=== PATIENT | female | born 1935 | race Caucasian/White ===

== ENCOUNTER 2018-07-08 20:42 | Outpatient (REF) | payer MEDICARE, BC, SELFPAY | END 2018-07-08 20:43 | LOC: NCHCN 20:42 | PROVIDERS: PCP Family Medicine; Visit Provider Family Medicine | DX: R35.0 Frequency of micturition (principal) | CPT/HCPCS: 87077; 87086 ==

== ENCOUNTER → 2018-08-02 14:59 | Outpatient (BNVA) | payer MEDICARE, BC, SELFPAY | PROVIDERS: PCP Family Medicine; Visit Provider Surgery | DX: S31.109A Unspecified open wound of abdominal wall, unspecified quadrant without penetration into peritoneal cavity, initial encounter (principal); L08.9 Local infection of the skin and subcutaneous tissue, unspecified | CPT/HCPCS: 99213 ==

== ENCOUNTER → 2018-08-10 07:33 | Outpatient (BNVA) | payer MEDICARE, BC, SELFPAY | PROVIDERS: PCP Family Medicine; Referring Provider Family Medicine; Visit Provider Surgery | DX: R69 Illness, unspecified (principal) ==

== ENCOUNTER 2018-08-10 08:53 | Day surgery (SDC) | payer MEDICARE, BC, SELFPAY ==
[2018-08-10 09:14] VITALS: BP 127/63; PULSE 70; RESP 16; TEMP 36.4; O2SAT 94
[2018-08-10] MEDS: Lactated Ringers 1,000 ML 30 ML IV (09:40)
--- NOTE | 2018-08-10 13:09 | SOFT_PTH ---
PATIENT: Tanja Carpio LOC: [facility] U#:[id number] AGE/SX: 82/F ROOM: RE08/10/[address]: Julian Elizalde DO : 1935 BED: DIS: 08/10/2018 SPEC #: [id number] RECD: 08/11/18 12:13 STATUS: RAMIREZ REQ #: [id number] MINDA: 08/10/18 13:[address]: Julian Elizalde DEPT: Surgical Specimen RECD BY: Werner Ruiz ENTERED: 08/11/18 12:16 SP TYPE: SOFT OTHR DR: Maribell Choi Tissues: 1 - SOFT TISSUE MISC (INC. LIPOMA) Procedures: GROSS AND MICRO LEVEL 3 SPECIAL STAIN 1 Comments: [id number]
[2018-08-10] MEDS: Bupivacaine 0.5% Pres-Free 30 ML VIAL (13:11)
--- NOTE | 2018-08-10 13:53 | W.PM.DSUDISC ---
Discharge Plan Disposition Patient Disposition: HOME Condition: Good Discharge Details Reason For Visit: Chronic non healing abdominal wound Attending Provider: Julian Elizalde Primary Care Provider: Maribell Choi Home Meds and New Rx's Prescriptions: New acetaminophen [Tylenol] 325 mg Tablet 650 mg PO Q4H PRN PRNQty: 30 RF: 0 Continue sennosides [senna] 8.6 mg tablet 8.6 mg PO BID PRNRF: 0 prednisone 10 MG tablet 10 mg PO DAILY RF: 0 melatonin 3 MG tablet 6 mg PO HS RF: 0 gabapentin 300 MG capsule 600 mg PO BID RF: 0 folic acid 0.8 MG capsule 0.8 mg PO DAILY RF: 0 apixaban [Eliquis] 2.5 MG tablet 2.5 mg PO BID RF: 0 ergocalciferol (vitamin D2) [Vitamin D2] 50,000 UNITS capsule 50,000 units PO .QOWEEK RF: 0 cyanocobalamin (vitamin B-12) 1,000 MCG/ML solution 1 ea IM .QMONTH RF: 0 bisacodyl 10 MG suppository 1 ea LA PRN PRNRF: 0 docusate sodium [Colace] 100 MG capsule 100 mg PO DAILY PRN (Reason: Constipation) Qty: 14 RF: 0 methadone 5 mg Tablet 2.5 mg PO HS RF: 0 hydromorphone [Dilaudid] 2 MG tablet 2 - 4 mg PO Q3H PRN MDD 3mg Q3H PRNRF: 0 ferrous sulfate 325 MG tablet 325 mg PO DAILY RF: 0 methadone [Dolophine] 5 MG tablet 5 mg PO DAILY RF: 0 Discharge Instructions Instructions: Care For Your Absorbable Stitches (DC) Stand Alone Forms: DSU Post op Instructions, Joyce Hoffmann (DSU) Referrals: Julian Elizalde DO [ [facility] STAFF PHYSICIAN] - 08/23/18 2:00 am (Follow up after excision of chronic wound) Print Language: Paraguayan Activity:: Activity as Tolerated Remove Dressings/Wound Care:: 48 hours Shower/Bathe:: 48 hours Diet:: resume regular Discharge Orders Discharge Orders: Discharge Order (Routine); Ordered 08/10/18 Ordered By: Julian Elizalde Discharge Data Discharge Comment: Resume jarvis alfredo DS: Diagnosis Discharge Diagnosis (1) Chronic abdominal wound infection: Status: Acute Asessment and Plan: 82-year-old woman who presents with a chronic abdominal wound infection. This is from where she had her gastrostomy tube removed over a year ago. The wound tract never closed, and it occasionally has gastric drainage which keeps the wound inflamed. She has been seen by a supply chain specialist who has attempted multiple times to scar the tract closed using silver nitrate. This is been attempted 6 times in his been unsuccessful all 6 times. She would like options for more permanent repair or healing. Location: Left upper quadrant of the abdomen Recommended excision of chronic wound with exploration of gastrostomy tube tract, and closure if the tract is still open into the stomach. I discussed the risks of the procedure with Mrs. Merino. She is at increased risk due to her steroid use. She understood this and wished to proceed.
--- NOTE | 2018-08-10 14:00 | W.PM.OP ---
Date of service: 08/10/18 Time of Service: 14:01 Operative Note DATE OF PROCEDURE: 08/10/18 PRE-OP DIAGNOSIS: Chronic abdominal wound POST-OP DIAGNOSIS: same PROCEDURE: Excision of chronic abdominal wound lesion SURGEON: Julian Elizalde BATTERY STACKER: Maricel White ANESTHESIA: MAC (Subsystems Engineer: Kathy Schultz, HERIBERTO ASA 3, Mallampati class: II) and local (0.5% lidocaine, 1.3 % exparel mixed with 0.5% marcaine plain) ESTIMATED BLOOD LOSS: 5 PATHOLOGY: other (Chronic wound tract ) COMPLICATIONS: None Patient was transported to: same day Patient's condition: stable Indications: This is a pleasant 82-year-old woman who had originally had a G tube placed for dysphasia secondary to myasthenia gravis. Her condition improved and she had the G-tube removed almost a year ago. Since its removal the tract has failed to close leaving a small area of indurated and irritated skin around the opening for the G-tube. She is on chronic steroids which probably contributed to the failure of closure of the wound. Recommended excision of chronic wound with exploration of gastrostomy tube tract, and closure if the tract is still open into the stomach. I discussed the risks of the procedure with Mrs. Merino. She is at increased risk due to her steroid use. She understood this and wished to proceed. Findings: Chronic wound excised including G-tube tract. Wound measured 9 x 2 x 2 cm. Fascia closed at g tube site on abdominal wall. Procedure Description: The patient was brought to the preanesthesia staging area, her identification was confirmed and consent signed. She was then brought to the operating room and positioned supine. Monitoring for telemetry, end-tidal CO2, O2 saturation, and blood pressure were applied. An appropriate timeout was taken reviewing the patient's identification, allergies, antibiotics, procedure, history, and fire hazard risk. Sedation was then titrated for effect by the GLACING MACHINE TENDER. Once adequate sedation was reached; the abdomen was prepped with ChloraPrep, and block draped in the standard sterile fashion. I began by making an elliptical marking around the chronic wound bed with the gastrostomy tube tract in the middle of this. Local 0.5% lidocaine was then infiltrated around this. I then incised through the skin of the ellipse using a 15 blade scalpel, carrying this down to the subcutaneous tissue. I then used cautery to divide the subcutaneous tissue down to the anterior rectus fascia. Cautery was then used to sharply separate the subcutaneous tissue from the rectus fascia, which effectively remove the chronic wound tissue along with gastrostomy tube tract. The wound defect measured 9 cm x 2 cm x 2 cm. Inspecting the fascia, I could see a fairly round defect I cannot see any leakage from this defect. I oversewed the defect using interrupted sutures of 0 Vicryl suture, 3 in total. I then obtained hemostasis using cautery. The wound was irrigated with 500 cc of sterile saline. The wound was then closed in layers. The subcutaneous layer was approximated using 3-0 Vicryl in inverted's simple sutures. The skin was closed using 4-0 Vicryl in a running subcuticular fashion. Prior to closure of the wound 1.3% Exparel mixed with 0.5% Marcaine plain was infiltrated into the fascia circumferentially at the base of the wound. There were no complications during the case. The patient tolerated procedure well. She was brought to the day surgery recovery area in good condition. All counts were reported as correct x2.
--- NOTE | 2018-08-10 14:06 | ROE_ITS ---
Date of service: 08/10/18 Time of Service: 14:01 Operative Note DATE OF PROCEDURE: 08/10/18 PRE-OP DIAGNOSIS: Chronic abdominal wound POST-OP DIAGNOSIS: same PROCEDURE: Excision of chronic abdominal wound lesion SURGEON: Julian Eliazlde GRAIN BROKER: Maricel hWite ANESTHESIA: MAC (Gravity Prospecting Supervisor: Kathy Schultz, HERIBERTO ASA 3, Mallampati class: II) and local (0.5% lidocaine, 1.3 % exparel mixed with 0.5% marcaine plain) ESTIMATED BLOOD LOSS: 5 PATHOLOGY: other (Chronic wound tract ) COMPLICATIONS: None Patient was transported to: same day Patient's condition: stable Indications: This is a pleasant 82-year-old woman who had originally had a G tube placed for dysphasia secondary to myasthenia gravis. Her condition improved and she had the G-tube removed almost a year ago. Since its removal the tract has failed to close leaving a small area of indurated and irritated skin around the opening for the G-tube. She is on chronic steroids which probably contributed to the failure of closure of the wound. Recommended excision of chronic wound with exploration of gastrostomy tube tract, and closure if the tract is still open into the stomach. I discussed the risks of the procedure with Mrs. Merino. She is at increased risk due to her steroid use. She understood this and wished to proceed. Findings: Chronic wound excised including G-tube tract. Wound measured 9 x 2 x 2 cm. Fascia closed at g tube site on abdominal wall. Procedure Description: The patient was brought to the preanesthesia staging area, her identification was confirmed and consent signed. She was then brought to the operating room and positioned supine. Monitoring for telemetry, end-tidal CO2, O2 saturation, and blood pressure were applied. An appropriate timeout was taken reviewing the patient's identification, allergies, antibiotics, procedure, history, and fire hazard risk. Sedation was then titrated for effect by the CLINICAL ASSISTANT. Once adequate sedation was reached; the abdomen was prepped with ChloraPrep, and block draped in the standard sterile fashion. I began by making an elliptical marking around the chronic wound bed with the gastrostomy tube tract in the middle of this. Local 0.5% lidocaine was then infiltrated around this. I then incised through the skin of the ellipse using a 15 blade scalpel, carrying this down to the subcutaneous tissue. I then used cautery to divide the subcutaneous tissue down to the anterior rectus fascia. Cautery was then used to sharply separate the subcutaneous tissue from the rectus fascia, which effectively remove the chronic wound tissue along with gastrostomy tube tract. The wound defect measured 9 cm x 2 cm x 2 cm. Inspecting the fascia, I could see a fairly round defect I cannot see any leakage from this defect. I oversewed the defect using interrupted sutures of 0 Vicryl suture, 3 in total. I then obtained hemostasis using cautery. The wound was irrigated with 500 cc of sterile saline. The wound was then closed in layers. The subcutaneous layer was approximated using 3-0 Vicryl in inverted's simple sutures. The skin was closed using 4-0 Vicryl in a running subcuticular fashion. Prior to closure of the wound 1.3% Exparel mixed with 0.5% Marcaine plain was infiltrated into the fascia circumferentially at the base of the wound. There were no complications during the case. The patient tolerated procedure well. She was brought to the day surgery recovery area in good condition. All counts were reported as correct x2.
[2018-08-10] MEDS: Acetaminophen 325 MG TAB 650 MG PO (14:09)
[2018-08-10 14:11] VITALS: BP 129/69; PULSE 65; RESP 16; TEMP 35.9; O2SAT 95
== END 2018-08-10 14:55 | disposition home or self-care (01) ==
PROVIDERS: PCP Family Medicine; Visit Provider Surgery
PROC: (CPT 11406; principal; 2018-08-10 10:30)
DX: T81.89XA Other complications of procedures, not elsewhere classified, initial encounter (principal); L85.9 Epidermal thickening, unspecified; B37.9 Candidiasis, unspecified; Z79.52 Long term (current) use of systemic steroids; L98.498 Non-pressure chronic ulcer of skin of other sites with other specified severity
CPT/HCPCS: 11406; 12034; 15002; 88305; 88304; 88312; J1720

== ENCOUNTER 2018-08-13 10:10 | Emergency (ER) | payer MEDICARE, BC, SELFPAY ==
[2018-08-13] VITALS (8 sets, daily range): BP systolic 120–138; BP diastolic 47–80; PULSE 84–171; RESP 12–20; TEMP 36.8–37.3; O2SAT 92–100
[2018-08-13 10:45] LABS: Abs Immature Grans 0.02 k/cumm (0.0-0.09); Absolute Eosinophil Count 0.13 k/cumm (0.0-0.7); Absolute Lymphocyte Count 1.77 k/cumm (1.2-3.4); Absolute Monocyte Count 0.88 k/cumm (0.11-0.7); Basophils % 0.2; HCT 40.7 % (36.0-46.0); Immature Grans % 0.2; Lymphocytes % 13.3; Mean Corp. HGB Concentration 31.9 g/dL (32.0-36.0); Mean Corpuscular Volume 106.5 fL (80-95); Mean Platelet Volume 9.6 fL (8.0-11.0); Monocytes % 6.6; Neutrophils % 78.7; Platelet Count 186 x1000/uL (130-400); RBC 3.82 m/cumm (4.00-5.20); RBC Distribution Width 13.1 % (11.7-14.6); White Blood Cell Count 13.32 k/cumm (4.4-10.8)
[2018-08-13 10:58] LABS: Absolute Basophil Count 0.03 k/cumm (0.0-0.2); Absolute Neutrophil Count 10.48 k/cumm (1.2-6.7)
[2018-08-13 10:59] LABS: Diff Comment RBC Morph Reviewed; Macrocytosis 3+
--- NOTE | 2018-08-13 11:04 | DI.CT_ITS ---
SYMPTOMS/DIAGNOSIS: ABD PAIN, RECENT SURGERY CT SCAN OF THE ABDOMEN AND PELVIS: CT scan of the abdomen and pelvis was performed with oral contrast only. Dependent atelectatic changes are seen in the lung bases. Lack of IV contrast does limit evaluation of the abdominal organs. The unenhanced liver, spleen, pancreas, gallbladder, bile ducts and adrenal glands are unremarkable. The kidneys show no evidence of nephrolithiasis or obstructive uropathy. The urinary bladder is intact. The reproductive organs are unremarkable. There is atherosclerosis of the abdominal aorta without aneurysmal dilatation. No significant abdominal or pelvic adenopathy, ascites or pneumoperitoneum is present. The patient is status post gastrotomy tube removal and debridement. There is tract leading from the anterior inferior aspect of the stomach to the anterior abdominal wall. The tract contains oral contrast. The tract width is less than 2 mm in diameter. The tract measures approximately 1.7 cm in length to the anterior abdominal wall. No definite contrast is seen in the subcutaneous tissues. There is a large air collection in the subcutaneous tissues in the left upper quadrant overlying the gastrostomy site. This air collection measures 5.3 cm transverse x 2.2 cm AP x 3.3 cm craniocaudad. No contrast is seen within the collection to suggest definite communication. There does not appear to be a communication with the skin surface however. There is a large amount of air in the subcutaneous tissues overlying the anterior abdominal wall likely reflecting the patient's recent surgery. The remainder of the bowel is unremarkable. No evidence of bowel obstruction is seen. No evidence of an acute appendicitis is present. IMPRESSION: Compression deformities involving the superior endplates of L 4, L 3 and L 1. Compression deformity of the T 12 vertebral body is noted. Moderately severe degenerative changes are in the spine. IMPRESSION: 1. Status post take down of gastrotomy tube and debridement. 2. Persistent tract extending from the stomach to the anterior abdominal wall without definite communication with the subcutaneous tissues. A residual fistula can not be excluded. 3. Air in the subcutaneous tissues of the anterior abdominal wall consistent with recent surgery. This includes a large 5.3 cm fluid collection in the left upper quadrant in the area of the gastrostomy tube. No definite communication with the skin surface is seen with this air collection and a persistent fistulous tract can not be excluded. These findings were discussed with Dr. Tay Jara of the emergency department on the date of the examination.
[2018-08-13 11:06] LABS: ALT 17 U/L (12-78); AST 13 U/L (15-37); Albumin 3.4 g/dL (3.4-5.0); Alkaline Phosphatase 60 U/L (46-116); Anion Gap 5.5 mmol/L (3-11); BUN 23 mg/dL (7-18); Bilirubin, Direct 0.12 mg/dL (0.00-0.20); Bilirubin, Total 0.5 mg/dL (0.2-1.0); CO2 32.5 mmol/L (21.0-32.0); CREATININE 1.33 mg/dL (0.55-1.02); Calcium 9.5 mg/dL (8.5-10.1); Chloride 100 mmol/L (98-107); Estimated GFR 38.39 (mL/min/1.73m2); Glucose 96 mg/dL (70-100); Potassium 4.2 mmol/L (3.5-5.1); Sodium 138 mmol/L (136-145); TSH (W/Ref FT4) 0.97 uIU/mL (0.358-3.74); Total Protein 6.6 g/dL (6.4-8.2)
--- NOTE | 2018-08-13 11:06 | W.ED.GENAD ---
Discharge Plan Disposition Patient Disposition: HOME Discharge Details Chief Complaint: Abd Prob Clinical Impression: Altered mental status, Abdominal pain Reason For Visit: MANGO Primary Care Provider: Maribell Choi ED Provider: Tay Jara Home Meds and New Rx's Prescriptions: Continue sennosides [senna] 8.6 mg tablet 8.6 mg PO BID PRNRF: 0 prednisone 10 MG tablet 7.5 mg PO DAILY RF: 0 melatonin 3 MG tablet 6 mg PO HS RF: 0 gabapentin 300 MG capsule 600 mg PO BID RF: 0 folic acid 0.8 MG capsule 0.8 mg PO DAILY RF: 0 apixaban [Eliquis] 2.5 MG tablet 2.5 mg PO BID RF: 0 ergocalciferol (vitamin D2) [Vitamin D2] 50,000 UNITS capsule 50,000 units PO .QOWEEK RF: 0 cyanocobalamin (vitamin B-12) 1,000 MCG/ML solution 1 ea IM .QMONTH RF: 0 bisacodyl 10 MG suppository 1 ea SC PRN PRNRF: 0 docusate sodium [Colace] 100 MG capsule 100 mg PO DAILY PRN (Reason: Constipation) Qty: 14 RF: 0 methadone 5 mg Tablet 2.5 mg PO HS RF: 0 ferrous sulfate 325 MG tablet 325 mg PO DAILY RF: 0 methadone [Dolophine] 5 MG tablet 5 mg PO DAILY RF: 0 acetaminophen [Tylenol] 325 mg Tablet 650 mg PO Q4H PRN PRNQty: 30 RF: 0 Changed hydromorphone [Dilaudid] 2 MG tablet 2 mg PO Q6H PRN MDD 3mg Q3H PRNQty: 0 RF: 0 Discharge Instructions Instructions: Altered Mental Status (ED) Additional Instructions: Take your medication as prescribed. Please contact your primary care physician to arrange follow-up. Please follow-up with general surgery. Call to arrange follow-up. Return to the ER for any worsening or new concerning symptoms. Referrals: Maribell Choi [Primary Care Provider] - Julian Elizalde DO [ [facility] STAFF PHYSICIAN] - Discharge Data Discharge Date/Time-TO BE ENTERED AT DEPARTURE: 08/13/18 17:43 Medical Decision Making 12:00 --82-year-old female with multiple medical problems including myasthenia gravis, recent abdominal surgery performed on 08/10/2018 to correct gastrotomy tube track, is here with altered mental status this morning after complaining of abdominal pain. ECG reviewed and interpreted by me: Sinus rhythm 93 bpm, low voltage in precordial leads, normal axis, nondiagnostic. Potential for accidental overdose on opioid. Airway is currently intact and patient easily arousable. Will continue to monitor mentation. Patient has no focal deficits on neurologic exam. Abdominal pain and tenderness now 3 days status post abdominal surgery. Consider acute surgical process including abscess. Plan to obtain CT imaging of the abdomen and pelvis. I spoke with Dr. Pérez, radiologist, about patient's presentation and my concerns and he recommended given her creatinine to proceed with CT with oral and without IV contrast. 12:30 -- Labs reviewed. Mild leukocytosis noted. -- CT of the abd and pelvis interpreted by radiology: IMPRESSION: 1. Status post take down of gastrotomy tube and debridement. 2. Persistent tract extending from the stomach to the anterior abdominal wall without definite communication with the subcutaneous tissues. A residual fistula can not be excluded. 3. Air in the subcutaneous tissues of the anterior abdominal wall consistent with recent surgery. This includes a large 5.3 cm fluid collection in the left upper quadrant in the area of the gastrostomy tube. No definite communication with the skin surface is seen with this air collection and a persistent fistulous tract can not be excluded. I called and spoke with Dr. Elizalde, the patient's surgeon who happens to be regional education manager and discussed the patient's presentation as well as diagnostic findings. He reviewed the CT images. He feels CT findings are normal postoperative then recommended outpatient follow-up unless she remains confused. 15:15 -- UA reviewed and negative. Patient reassessed and significantly improved in terms of mental status. Patient feeling better and requesting discharge. Will contact family. Plan is for the patient to take analgesics only as prescribed and to follow-up with Dr. Eilzalde in the clinic. -- Lengthy stay in ED awaiting family arrival for discharge. HPI General Mode of arrival: EMS. Date/Time Provider Initiated Documentation: 08/13/18 10:28. Limitations to Documentation: altered mental status. Information obtained by: patient, family and EMS. 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 History and review of systems is limited secondary to altered mentation. Per the patient's daughter, patient has been doing well postoperatively until this morning when she complained to family about abdominal pain and back pain. Daughter notes that she was somewhat confused and had trouble answering questions just prior to arrival. Daughter is concerned that fusion may be dated to the patient taking 2 of her prescribed hydromorphone's in addition to her prescribed methadone this morning. Patient states that she does have upper abdominal pain currently. No recent fevers. She also notes that she has mid back pain. Related Data Home Medications Medication Instructions Recorded Confirmed apixaban [Eliquis] 2.5 mg PO BID 07/08/17 08/13/18 folic acid 0.8 mg PO DAILY 07/08/17 08/13/18 gabapentin 600 mg PO BID 07/08/17 08/13/18 melatonin 6 mg PO HS 07/08/17 08/13/18 prednisone 7.5 mg PO DAILY 07/08/17 08/13/18 cyanocobalamin (vitamin B-12) 1 ea IM .QMONTH 07/27/17 08/13/18 ergocalciferol (vitamin D2) 50,000 units PO .QOWEEK 07/27/17 08/13/18 [Vitamin D2] bisacodyl 1 ea SC PRN PRN 09/26/17 08/13/18 sennosides 8.6 mg tablet 8.6 mg PO BID PRN 08/02/18 08/13/18 ferrous sulfate 325 mg PO DAILY 08/06/18 08/13/18 methadone 2.5 mg PO HS 08/06/18 08/13/18 methadone [Dolophine] 5 mg PO DAILY 08/06/18 08/13/18 Previous Rx's Medication Instructions Recorded docusate sodium [Colace] 100 mg PO DAILY PRN #14 cap 09/26/17 acetaminophen [Tylenol] 650 mg PO Q4H PRN PRN #30 tab 08/10/18 hydromorphone [Dilaudid] 2 mg PO Q6H PRN PRN #0 tab MDD 3mg 08/13/18 Q3H Allergies Allergy/AdvReac Type Severity Reaction Status Date / Time Sulfa (Sulfonamide Allergy Hives Verified 08/13/18 10:24 Antibiotics) General Stated Complaint: Abd Prob KIERSTEN: 2 Review of Systems Review of Systems All systems reviewed & are unremarkable except as noted in HPI and below Gastrointestinal Reports abdominal pain, Denies nausea and Denies vomiting Genitourinary Denies dysuria PFSH Medical History Gastrostomy infection (Acute 08/10/18) Atrial fibrillation (Chronic) B12 deficiency (Chronic) Chronic constipation (Chronic) Chronic insomnia (Chronic) Chronic pain (Chronic) Compression fracture of spine (Chronic) Myasthenia (Chronic) Osteoporosis (Chronic) CHF (congestive heart failure) (Resolved) Decubitus ulcer of sacral area (Resolved) Hx of deep venous thrombosis (Resolved) Lumbago (Resolved) Macrocytic anemia (Resolved) Malnutrition (Resolved) Post herpetic neuralgia (Resolved) Social History Smoking/Tobacco Use Status: Never alcohol intake: never substance use type: does not use Surgical History Gastrostomy Tube Placement (Resolved) Exam Const General: no acute distress, well developed, not in acute distress and other (tired appearing) HENMT Mouth: moist mucous membranes Eyes Conjunctivae: conjunctivae normal Sclera: sclerae normal Neck Neck: normal visual inspection Resp Effort & Inspection: normal respiratory effort and no respiratory distress Auscultation: no rales, no rhonchi and no wheezes Cardio Jugular venous pressure: no JVD Rate: regular rate Rhythm: regular rhythm Heart Sounds: no gallops, no murmurs and no rubs GI Inspection: non-distended Palpation: soft, not rigid and tender in the epigastrum and in the LUQ Auscultation: normal bowel sounds Skin General skin exam: no rashes or lesions noted and other (warm) Neuro General: alert, oriented Patient Orientation: Person, Place and Confused and moves all extremities Extrem General: no edema Psych Speech and Movement: speech and movement normal Course Vital Signs Temperature 37.3 C 08/13/18 10:17 Pulse 99 H 08/13/18 10:17 Respiratory Rate 20 08/13/18 10:17 Blood Pressure 134/58 L 08/13/18 10:17 Pulse Oximetry 92 L 08/13/18 10:17 Temperature 37.3 C 08/13/18 10:17 Pulse 84 08/13/18 10:46 Respiratory Rate 12 08/13/18 10:50 Blood Pressure 123/47 L 08/13/18 10:46 Pulse Oximetry 99 08/13/18 10:50 Lab/Test Results Lab/Test Results: Laboratory Tests 08/13/18 10:30 WBC 13.32 H RBC 3.82 L Hgb 13.0 Hct 40.7 MCV 106.5 H MCH 34.0 H MCHC 31.9 L RDW 13.1 Plt Count 186 MPV 9.6 Immature Gran % 0.2 Neutrophils % 78.7 Lymphocytes % 13.3 Monocytes % 6.6 Eosinophils % 1.0 Basophils % 0.2 Absolute Neutrophils 10.48 H Absolute Lymphocytes 1.77 Absolute Monocytes 0.88 H Absolute Eosinophils 0.13 Absolute Basophils 0.03 Differential Comment Rbc morph reviewed Macrocytosis 3+
[2018-08-13 11:07] LABS: Troponin I < 0.02 ng/mL (0.00-0.06)
[2018-08-13 11:18] LABS: Lipase 133 U/L (73-393)
--- NOTE | 2018-08-13 12:37 | ED.GENADUL_ITS ---
Discharge Plan Disposition Patient Disposition: HOME Discharge Details Chief Complaint: Abd Prob Clinical Impression: Altered mental status, Abdominal pain Reason For Visit: MANGO Primary Care Provider: Maribell Choi ED Provider: Tay Jara Home Meds and New Rx's Prescriptions: Continue sennosides [senna] 8.6 mg tablet 8.6 mg PO BID PRNRF: 0 prednisone 10 MG tablet 7.5 mg PO DAILY RF: 0 melatonin 3 MG tablet 6 mg PO HS RF: 0 gabapentin 300 MG capsule 600 mg PO BID RF: 0 folic acid 0.8 MG capsule 0.8 mg PO DAILY RF: 0 apixaban [Eliquis] 2.5 MG tablet 2.5 mg PO BID RF: 0 ergocalciferol (vitamin D2) [Vitamin D2] 50,000 UNITS capsule 50,000 units PO .QOWEEK RF: 0 cyanocobalamin (vitamin B-12) 1,000 MCG/ML solution 1 ea IM .QMONTH RF: 0 bisacodyl 10 MG suppository 1 ea SC PRN PRNRF: 0 docusate sodium [Colace] 100 MG capsule 100 mg PO DAILY PRN (Reason: Constipation) Qty: 14 RF: 0 methadone 5 mg Tablet 2.5 mg PO HS RF: 0 ferrous sulfate 325 MG tablet 325 mg PO DAILY RF: 0 methadone [Dolophine] 5 MG tablet 5 mg PO DAILY RF: 0 acetaminophen [Tylenol] 325 mg Tablet 650 mg PO Q4H PRN PRNQty: 30 RF: 0 Changed hydromorphone [Dilaudid] 2 MG tablet 2 mg PO Q6H PRN MDD 3mg Q3H PRNQty: 0 RF: 0 Discharge Instructions Instructions: Altered Mental Status (ED) Additional Instructions: Take your medication as prescribed. Please contact your primary care physician to arrange follow-up. Please follow-up with general surgery. Call to arrange follow-up. Return to the ER for any worsening or new concerning symptoms. Referrals: Maribell Choi [Primary Care Provider] - Julian Elizalde DO [ [facility] STAFF PHYSICIAN] - Discharge Data Discharge Date/Time-TO BE ENTERED AT DEPARTURE: 08/13/18 17:43 Medical Decision Making 12:00 --82-year-old female with multiple medical problems including myasthenia gravis, recent abdominal surgery performed on 08/10/2018 to correct gastrotomy tube track, is here with altered mental status this morning after complaining of abdominal pain. ECG reviewed and interpreted by me: Sinus rhythm 93 bpm, low voltage in precordial leads, normal axis, nondiagnostic. Potential for accidental overdose on opioid. Airway is currently intact and patient easily arousable. Will continue to monitor mentation. Patient has no focal deficits on neurologic exam. Abdominal pain and tenderness now 3 days status post abdominal surgery. Consider acute surgical process including abscess. Plan to obtain CT imaging of the abdomen and pelvis. I spoke with Dr. Pérez, radiologist, about patient' s presentation and my concerns and he recommended given her creatinine to proceed with CT with oral and without IV contrast. 12:30 -- Labs reviewed. Mild leukocytosis noted. -- CT of the abd and pelvis interpreted by radiology: IMPRESSION: 1. Status post take down of gastrotomy tube and debridement. 2. Persistent tract extending from the stomach to the anterior abdominal wall without definite communication with the subcutaneous tissues. A residual fistula can not be excluded. 3. Air in the subcutaneous tissues of the anterior abdominal wall consistent with recent surgery. This includes a large 5.3 cm fluid collection in the left upper quadrant in the area of the gastrostomy tube. No definite communication with the skin surface is seen with this air collection and a persistent fistulous tract can not be excluded. I called and spoke with Dr. Elizalde, the patient's surgeon who happens to be automotive internet sales consultant and discussed the patient's presentation as well as diagnostic findings. He reviewed the CT images. He feels CT findings are normal postoperative then recommended outpatient follow-up unless she remains confused. 15:15 -- UA reviewed and negative. Patient reassessed and significantly improved in terms of mental status. Patient feeling better and requesting discharge. Will contact family. Plan is for the patient to take analgesics only as prescribed and to follow-up with Dr. Elizalde in the clinic. -- Lengthy stay in ED awaiting family arrival for discharge. HPI General Mode of arrival: EMS . Date/Time Provider Initiated Documentation: 08/13/18 10:28 . Limitations to Documentation: altered mental status . Information obtained by: patient, family and EMS . 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 History and review of systems is limited secondary to altered mentation. Per the patient's daughter, patient has been doing well postoperatively until this morning when she complained to family about abdominal pain and back pain. Daughter notes that she was somewhat confused and had trouble answering questions just prior to arrival. Daughter is concerned that fusion may be dated to the patient taking 2 of her prescribed hydromorphone's in addition to her prescribed methadone this morning. Patient states that she does have upper abdominal pain currently. No recent fevers. She also notes that she has mid back pain. Related Data Home Medications Medication Instructions Recorded Confirmed apixaban [Eliquis] 2.5 mg PO BID 07/08/17 08/13/18 folic acid 0.8 mg PO DAILY 07/08/17 08/13/18 gabapentin 600 mg PO BID 07/08/17 08/13/18 melatonin 6 mg PO HS 07/08/17 08/13/18 prednisone 7.5 mg PO DAILY 07/08/17 08/13/18 cyanocobalamin (vitamin B-12) 1 ea IM .QMONTH 07/27/17 08/13/18 ergocalciferol (vitamin D2) 50,000 units PO .QOWEEK 07/27/17 08/13/18 [Vitamin D2] bisacodyl 1 ea SC PRN PRN 09/26/17 08/13/18 sennosides 8.6 mg tablet 8.6 mg PO BID PRN 08/02/18 08/13/18 ferrous sulfate 325 mg PO DAILY 08/06/18 08/13/18 methadone 2.5 mg PO HS 08/06/18 08/13/18 methadone [Dolophine] 5 mg PO DAILY 08/06/18 08/13/18 Previous Rx's Medication Instructions Recorded docusate sodium [Colace] 100 mg PO DAILY PRN #14 cap 09/26/17 acetaminophen [Tylenol] 650 mg PO Q4H PRN PRN #30 tab 08/10/18 hydromorphone [Dilaudid] 2 mg PO Q6H PRN PRN #0 tab MDD 3mg 08/13/18 Q3H Allergies Allergy/AdvReac Type Severity Reaction Status Date / Time Sulfa (Sulfonamide Allergy Hives Verified 08/13/18 10:24 Antibiotics) General Stated Complaint: Abd Prob KIERSTEN: 2 Review of Systems Review of Systems All systems reviewed & are unremarkable except as noted in HPI and below Gastrointestinal Reports abdominal pain, Denies nausea and Denies vomiting Genitourinary Denies dysuria PFSH Medical History Gastrostomy infection (Acute 08/10/18) Atrial fibrillation (Chronic) B12 deficiency (Chronic) Chronic constipation (Chronic) Chronic insomnia (Chronic) Chronic pain (Chronic) Compression fracture of spine (Chronic) Myasthenia (Chronic) Osteoporosis (Chronic) CHF (congestive heart failure) (Resolved) Decubitus ulcer of sacral area (Resolved) Hx of deep venous thrombosis (Resolved) Lumbago (Resolved) Macrocytic anemia (Resolved) Malnutrition (Resolved) Post herpetic neuralgia (Resolved) Social History Smoking/Tobacco Use Status: Never alcohol intake: never substance use type: does not use Surgical History Gastrostomy Tube Placement (Resolved) Exam Const General: no acute distress, well developed, not in acute distress and other ( tired appearing) HENMT Mouth: moist mucous membranes Eyes Conjunctivae: conjunctivae normal Sclera: sclerae normal Neck Neck: normal visual inspection Resp Effort & Inspection: normal respiratory effort and no respiratory distress Auscultation: no rales, no rhonchi and no wheezes Cardio Jugular venous pressure: no JVD Rate: regular rate Rhythm: regular rhythm Heart Sounds: no gallops, no murmurs and no rubs GI Inspection: non-distended Palpation: soft, not rigid and tender in the epigastrum and in the LUQ Auscultation: normal bowel sounds Skin General skin exam: no rashes or lesions noted and other (warm) Neuro General: alert, oriented Patient Orientation: Person, Place and Confused and moves all extremities Extrem General: no edema Psych Speech and Movement: speech and movement normal Course Vital Signs Temperature 37.3 C 08/13/18 10:17 Pulse 99 H 08/13/18 10:17 Respiratory Rate 20 08/13/18 10:17 Blood Pressure 134/58 L 08/13/18 10:17 Pulse Oximetry 92 L 08/13/18 10:17 Temperature 37.3 C 08/13/18 10:17 Pulse 84 08/13/18 10:46 Respiratory Rate 12 08/13/18 10:50 Blood Pressure 123/47 L 08/13/18 10:46 Pulse Oximetry 99 08/13/18 10:50 Lab/Test Results Lab/Test Results: Laboratory Tests 08/13/18 10:30 WBC 13.32 H RBC 3.82 L Hgb 13.0 Hct 40.7 MCV 106.5 H MCH 34.0 H MCHC 31.9 L RDW 13.1 Plt Count 186 MPV 9.6 Immature Gran % 0.2 Neutrophils % 78.7 Lymphocytes % 13.3 Monocytes % 6.6 Eosinophils % 1.0 Basophils % 0.2 Absolute Neutrophils 10.48 H Absolute Lymphocytes 1.77 Absolute Monocytes 0.88 H Absolute Eosinophils 0.13 Absolute Basophils 0.03 Differential Comment Rbc morph reviewed Macrocytosis 3+
[2018-08-13 15:06] LABS: Bilirubin Negative (Negative); Blood Negative (Negative); Clarity Cloudy; Glucose Negative (Negative); Ketones Negative (Negative); Leukocyte Esterase Negative (Negative); Nitrite Negative (Negative); Specific Gravity 1.015 (1.005-1.025); Urobilinogen 0.2 EU/dL (Up TO 0.2); pH 8.5 (5-8)
[2018-08-13 15:15] LABS: C & S Indicated? Yes
[2018-08-13] MEDS: HYDROmorphone 2 MG TAB PO (17:35)
== END 2018-08-13 17:43 | disposition home or self-care (01) ==
PROVIDERS: Emergency Provider Student in an Organized Health Care Education/Training Program; PCP Family Medicine
DX: R41.82 Altered mental status, unspecified (principal); R10.12 Left upper quadrant pain; G89.18 Other acute postprocedural pain
CPT/HCPCS: 36415; 80053; 80076; 83690; 93005; 99285; 74176; 81003; 81015; 83735; 84443; 84484; 85025; 87086; 93010; 99284

== ENCOUNTER → 2018-08-16 14:05 | Outpatient (BNVA) | payer MEDICARE, BC, SELFPAY | PROVIDERS: PCP Family Medicine; Referring Provider Family Medicine; Visit Provider Surgery | DX: K31.6 Fistula of stomach and duodenum (principal) | CPT/HCPCS: 99212; 99213 ==

== ENCOUNTER 2018-08-16 15:21 | Inpatient (IN) | payer MEDICARE, BC, SELFPAY ==
[2018-08-16 15:05] VITALS: BP 129/77; PULSE 76; RESP 18; TEMP 36.2; O2SAT 96
--- NOTE | 2018-08-16 15:55 | DI.RAD_ITS ---
SYMPTOM/DIAGNOSIS: GASTROENTERIC FISTULA ACUTE ABDOMINAL SERIES: Comparison CT scan is 08/13/18. PA CHEST: Heart size is within normal limits. There is tortuosity of the thoracic aorta. The patient has two central venous catheters present, the tips lie at the junction of the superior vena cava and right atrium. Increased lung markings are seen in the medial aspects of both the right middle lobe and left lingula, present on the CT scan. These may represent areas of atelectasis or pneumonia. The lungs are otherwise clear. No effusions or pneumothoraces are identified. Overall, there is a stable appearance of the chest compared to the CT scan from 08/13/18. IMPRESSION: Persistent right middle lobe and left lingular infiltrates. These may be chronic but acute pneumonia or atelectasis should be considered. FLAT AND UPRIGHT ABDOMEN: There is oral contrast seen within the colon from previous CT scan. There is air seen in the soft tissues overlying the right abdomen. This was present on the CT scan from 08/13/18 and is located in the anterior abdominal wall. No air is seen beneath the hemidiaphragms on the upright view of the abdomen. No evidence of bowel obstruction or organomegaly is seen. Degenerative changes are seen throughout the spine. IMPRESSION: 1. No evidence of bowel obstruction. 2. Persistent air noted overlying the right abdomen. CT scan from 08/13/18 showed this air to be within the anterior abdominal wall. If there is continued concern for intraperitoneal air, a CT scan of the abdomen and pelvis should be considered.
[2018-08-16 16:22] LABS: Abs Immature Grans 0.01 k/cumm (0.0-0.09); Absolute Basophil Count 0.01 k/cumm (0.0-0.2); Absolute Lymphocyte Count 0.45 k/cumm (1.2-3.4); Absolute Monocyte Count 0.45 k/cumm (0.11-0.7); Absolute Neutrophil Count 7.79 k/cumm (1.2-6.7); Basophils % 0.1; HCT 38.1 % (36.0-46.0); HGB 12.8 g/dL (12.0-15.5); Immature Grans % 0.1; Lymphocytes % 5.2; Mean Corp. HGB Concentration 33.6 g/dL (32.0-36.0); Mean Corpuscular Hemoglobin 34.9 pg (27.0-33.0); Mean Corpuscular Volume 103.8 fL (80-95); Mean Platelet Volume 9.3 fL (8.0-11.0); Monocytes % 5.2; Neutrophils % 89.4; Platelet Count 186 x1000/uL (130-400); RBC 3.67 m/cumm (4.00-5.20); RBC Distribution Width 12.7 % (11.7-14.6); White Blood Cell Count 8.71 k/cumm (4.4-10.8)
[2018-08-16 16:32] LABS: ALT 19 U/L (12-78); AST 13 U/L (15-37); Albumin 3.1 g/dL (3.4-5.0); Alkaline Phosphatase 77 U/L (46-116); Anion Gap 8.8 mmol/L (3-11); BUN 27 mg/dL (7-18); Bilirubin, Total 0.3 mg/dL (0.2-1.0); C-Reactive Protein 14.06 mg/dL (0.0-0.3); CO2 31.2 mmol/L (21.0-32.0); CREATININE 1.45 mg/dL (0.55-1.02); Chloride 98 mmol/L (98-107); Estimated GFR 34.75 (mL/min/1.73m2); Glucose 145 mg/dL (70-100); Magnesium 2.3 mg/dL (1.8-2.4); Potassium 4.4 mmol/L (3.5-5.1); Sodium 138 mmol/L (136-145); Total Protein 7.2 g/dL (6.4-8.2)
[2018-08-16 17:00] LABS: ESR 101 MM/HR (0-30)
--- NOTE | 2018-08-16 17:23 | HPE_ITS ---
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 Plan for repair of fistula in 24 hours. I have discussed the plan with patient. I reviewed the risks of the procedure, including risk of recurrence, infection, bleeding. No promises given, or guarantees were made. She has not taken her Eliquis for 3 days. Further recommendations be pending clinical diagnostic findings. History of Present Illness Chief Complaint: Gastrocutaneous fistula Narrative: 82-year-old female presented to the office today with complaints of wound drainage. She had undergone excision of nonhealing gastrostomy tube tract of the abdominal wall. The wound had been chronically irritated for over a year since removing her G-tube. The wound was excised and the fascia oversewn. She was seen over the weekend in the emergency room for abdominal pain. CT did not demonstrate any fluid collection at that time. She was thought to be oversedated from her methadone and Dilaudid medications, and was set to follow-up today. She stated that her wound started to drain within the last 24 hours and that her skin was very irritated from this drainage. She denies any fever, or chills. Examination of the wound showed drainage consistent with gastric contents. She was direct admitted for gastrocutaneous fistula Review of Systems Constitutional Denies anorexia, Denies chills, Reports difficulty sleeping, Denies fatigue, Denies fever(s), Denies headache(s), Denies lethargy, Reports malaise and Reports weakness Eyes Denies blurry vision, Denies diplopia and Denies loss of vision ENT Denies abnormal hearing, Denies dysphagia, Denies vertigo, Denies dizziness, Denies headache(s), Denies hoarseness, Denies tinnitus and Denies sore throat Cardiovascular Denies bluish discoloration of hand/feet, Denies chest pain at rest, Denies rapid heart rate, Denies pedal edema, Denies irregular heart rhythm, Denies lightheadedness, Denies palpitations and Denies dyspnea Respiratory Denies chest congestion, Denies excessive phlegm production, Denies pain on inspiration, Denies dyspnea and Denies wheezing Gastrointestinal Reports abdominal pain, Denies coffee ground emesis, Denies dysphagia, Denies early satiety, Denies heartburn, Denies nausea and Denies vomiting Genitourinary Denies abnormal vaginal bleeding, Denies hematuria, Denies urinary frequency and Denies nocturia Musculoskeletal Reports back pain, Reports arthralgias, Denies joint swelling, Denies radiating pain into limb and Reports stiffness Neurologic Denies abnormal hearing, Denies confusion, Denies vertigo, Denies dizziness, Denies headache(s), Denies focal weakness, Denies loss of vision, Denies convulsions, Denies seizure-like activity and Reports weakness Psychiatric Reports abnormal sleep pattern, Denies anxiety, Denies confusion, Denies difficulty concentrating, Denies irritability, Denies mood swings and Denies panic attacks Endocrine Denies fatigue and Denies palpitations Hematologic/Lymphatic Reports easy bleeding (on eliquis) and Reports easy bruising (on eliquis) Allergic/Immunologic Denies wheezing Meds Home Medications Medication Instructions Recorded Confirmed Type apixaban [Eliquis] 2.5 mg PO BID 07/08/17 08/16/18 History folic acid 0.8 mg PO DAILY 07/08/17 08/16/18 History gabapentin 600 mg PO BID 07/08/17 08/16/18 History melatonin 6 mg PO HS 07/08/17 08/16/18 History prednisone 7.5 mg PO DAILY 07/08/17 08/16/18 History cyanocobalamin (vitamin B-12) 1 ea IM .QMONTH 07/27/17 08/16/18 History ergocalciferol (vitamin D2) 50,000 units PO .QOWEEK 07/27/17 08/16/18 History [Vitamin D2] bisacodyl 1 ea [place] PRN PRN 09/26/17 08/16/18 History docusate sodium [Colace] 100 mg PO DAILY PRN #14 cap 09/26/17 08/16/18 Rx sennosides 8.6 mg tablet 8.6 mg PO BID PRN 08/02/18 08/16/18 History ferrous sulfate 325 mg PO DAILY 08/06/18 08/16/18 History methadone 2.5 mg PO HS 08/06/18 08/16/18 History methadone [Dolophine] 5 mg PO DAILY 08/06/18 08/16/18 History acetaminophen [Tylenol] 650 mg PO Q4H PRN PRN #30 tab 08/10/18 08/16/18 Rx hydromorphone [Dilaudid] 2 mg PO Q6H PRN PRN #0 tab MDD 3mg 08/13/18 08/16/18 Rx Q3H multivitamin [Multiple Vitamins] 1 tab PO DAILY 08/16/18 08/16/18 History Allergies Allergy/AdvReac Type Severity Reaction Status Date / Time Sulfa (Sulfonamide Allergy Hives Verified 08/16/18 14:06 Antibiotics) Exam Const General: cooperative, no acute distress, disheveled and frail appearing Nutritional Appearance: underweight Orientation: alert, awake and oriented x3 HENMT Head: normal to inspection, normocephalic and atraumatic Ears: hearing grossly normal bilaterally Face and sinus: normal facial exam Mouth: oral mucosa abnormal (dry) Eyes General: appearance normal, both eyes and all related structures Pupils: PERRL EOM: EOM intact bilaterally Neck Neck: normal visual inspection, trachea midline and supple Chest Chest: normal inspection of the chest Resp Effort & Inspection: normal respiratory effort, no audible wheezes and not labored Auscultation: clear to auscultation bilaterally Cardio Jugular venous pressure: no JVD Rate: regular rate Rhythm: regular rhythm GI Inspection: non-distended and incision (LUQ incision open midincision with drainage c/q gastric contents) Palpation: soft and tender in the LLQ Skin General skin exam: erythema (around incision from gastric acid) and turgor decreased Hair: general thinning Neuro General: moves all extremities, no focal motor deficits and CN's II-XI intact bilaterally Extrem General: normal to inspection, normal capillary refill and no clubbing, cyanosis or edema Psych Appearance: grossly normal and disheveled Mental Status: mental status grossly normal Affect: anxious affect Attitude: cooperative Judgment: judgment good Results Imaging Chest x-ray: image reviewed (no free air seen, no acute process) Abdominal x- ray: image reviewed (no acute process, contrast seen in the colon from CT A/P from Thursday) Labs : 08/16/18 16:10 08/16/18 16:10 Laboratory Results - last 24 hr 08/16/18 08/16/18 16:10 16:10 WBC 8.71 RBC 3.67 L Hgb 12.8 Hct 38.1 MCV 103.8 H MCH 34.9 H MCHC 33.6 RDW 12.7 Plt Count 186 MPV 9.3 Immature Gran % 0.1 Neutrophils % 89.4 Lymphocytes % 5.2 Monocytes % 5.2 Eosinophils % 0.0 Basophils % 0.1 Absolute Neutrophils 7.79 H Absolute Lymphocytes 0.45 L Absolute Monocytes 0.45 Absolute Eosinophils 0.00 Absolute Basophils 0.01 ESR 101 H Sodium 138 Potassium 4.4 Chloride 98 Carbon Dioxide 31.2 Anion Gap 8.8 BUN 27 H Creatinine 1.45 H Estimated GFR/1.73 m2 34.75 Glucose 145 H Calcium 10.0 Magnesium 2.3 Total Bilirubin 0.3 AST 13 L ALT 19 Alkaline Phosphatase 77 C-Reactive Protein 14.06 H Total Protein 7.2 Albumin 3.1 L
--- NOTE | 2018-08-16 17:43 | DI.VRAD_ITS ---
EXAM: XR Abdomen 2 Views with XR Chest 1 View EXAM DATE/TIME: 08/16/2018 3:57 PM CLINICAL HISTORY: 82 years old, female; Condition or disease; Other: Gastroenteric fistula; Prior surgery TECHNIQUE: XR of the abdomen (2 views) with XR chest (1 view). COMPARISON: CR ABD FLAT UPRIGHT PA CHEST 09/26/2017 5:29 PM FINDINGS: Tubes, catheters and devices: Right and left catheters terminate in the superior vena cava Lungs: Hyperexpanded lung rocha consistent with COPD Pleural space: Normal. No pneumothorax. Heart/Mediastinum: Normal. No cardiomegaly. Gastrointestinal tract: Contrast in the colon. No bowel obstruction. Intraperitoneal space: Serpiginous collections of air overlie the right abdomen and pelvis and may be in the patient or outside the patient. If the collections of air are thought to be within the patient, recommend CT abdomen pelvis. Bones/joints: Compression fractures along the thoracic spine Degenerative changes in the thoracolumbar spine Soft tissues: Normal. IMPRESSION: 1. No bowel obstruction. 2. Serpiginous collections of air overlie the right abdomen and pelvis and may be in the patient or outside the patient. If the collections of air are thought to be within the patient, recommend CT abdomen pelvis. Dictated and Authenticated by: Mukul New MD. Ordering:AKILA KOVACS MD
[2018-08-16] MEDS: ACETAMINOPHEN 1,000 MG/100 ML BTL 400 MG IVPB (18:03)
[2018-08-16] MEDS: Normal Saline 1,000 ML 100 ML IV (18:04)
[2018-08-16] MEDS: PANTOPRAZOLE 80 MG in Normal Saline 100 ML 10 MG IV (18:50)
[2018-08-16 21:30] VITALS: BP 137/71; PULSE 68; RESP 19; TEMP 36; O2SAT 97
[2018-08-16 23:40] VITALS: BP 128/74; PULSE 65; RESP 16; TEMP 36.6; O2SAT 97
[2018-08-16] MEDS: diphenhydrAMINE 50 MG/ML VIAL 25 MG IM/IVP (23:47)
[2018-08-16] MEDS: Normal Saline Flush 10 ML SYR IVP (23:47)
[2018-08-17] VITALS (13 sets, daily range): BP systolic 118–144; BP diastolic 59–75; PULSE 66–77; RESP 10–18; TEMP 35.7–36.6; O2SAT 93–98
[2018-08-17] MEDS: ACETAMINOPHEN 1,000 MG/100 ML BTL 400 MG IVPB ×2 (04:02→19:40)
[2018-08-17] MEDS: PANTOPRAZOLE 80 MG in Normal Saline 100 ML 10 MG IV (04:03)
[2018-08-17] MEDS: Normal Saline 1,000 ML 100 ML IV (04:17)
[2018-08-17 07:33] LABS: Abs Immature Grans 0.01 k/cumm (0.0-0.09); Absolute Basophil Count 0.02 k/cumm (0.0-0.2); Absolute Eosinophil Count 0.23 k/cumm (0.0-0.7); Absolute Lymphocyte Count 0.64 k/cumm (1.2-3.4); Absolute Monocyte Count 0.45 k/cumm (0.11-0.7); Absolute Neutrophil Count 3.98 k/cumm (1.2-6.7); Basophils % 0.4; Eosinophils % 4.3; HCT 35.9 % (36.0-46.0); HGB 11.4 g/dL (12.0-15.5); Immature Grans % 0.2; Mean Corp. HGB Concentration 31.8 g/dL (32.0-36.0); Mean Corpuscular Hemoglobin 33.8 pg (27.0-33.0); Mean Corpuscular Volume 106.5 fL (80-95); Monocytes % 8.4; Neutrophils % 74.7; Platelet Count 196 x1000/uL (130-400); RBC 3.37 m/cumm (4.00-5.20); RBC Distribution Width 12.5 % (11.7-14.6); White Blood Cell Count 5.33 k/cumm (4.4-10.8)
[2018-08-17 07:50] LABS: PTT Activated 26.3 sec (21.0-31.4); Prothrombin Time 9.6 sec (9.3-10.8)
[2018-08-17 07:52] LABS: Anion Gap 7.6 mmol/L (3-11); BUN 21 mg/dL (7-18); CO2 29.4 mmol/L (21.0-32.0); CREATININE 1.29 mg/dL (0.55-1.02); Calcium 9.1 mg/dL (8.5-10.1); Chloride 104 mmol/L (98-107); Estimated GFR 39.76 (mL/min/1.73m2); Glucose 74 mg/dL (70-100); Potassium 4.1 mmol/L (3.5-5.1); Sodium 141 mmol/L (136-145)
--- NOTE | 2018-08-17 07:58 | PDOC.CMIN ---
- If Service Date Differs Date of service: 08/17/18 Time of Service: 07:58 Care Management Initial Assess REASON FOR HOSPITALIZATION:: Gastric enteric fistula. PAST MEDICAL HISTORY/PAST SURGICAL HISTORY:: A-fib, CHF, B12 deficiency, compression fx spine, decubitus ulcer sacrum, macrocytic anemia, lumbago, malnutrition, myasthenia, osteoperosis, herpetic neuralgia. Surgical hx: G-tube placement. PREVIOUS FUNCTIONAL STATUS/SOCIAL/FAMILY SUPPORTS:: Tanja resides in [place] with her son and daughter in law. She had previously been living in [place] when her a year ago. At that time, her son and daughter in law asked her to move in with them and she agreed. Tanja has three additional adult children who do not live locally. 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 She reports that her family assists her with bathing, dressing and food preparation. She is independent with her medications. She utilizes a walker to ambulate and relies on [facility] and family for transportation. ADVANCE DIRECTIVES:: On file at [facility]. Frankie Carpio (son) health care agent. Has patient been provided with information about the portal?: No Did the patient sign up for the portal?: Yes CODE STATUS:: DNR/DNI INSURANCE COVERAGE / FINANCIAL ISSUES:: [employer], Medicare. CURRENT HOME/COMMUNITY SERVICES/EQUIPMENT:: Tanja has home health services for wound treatment 2-3/week. She utilzes a walker to ambulate. PRIMARY CARE PHYSICIAN:: Maribell Choi. POTENTIAL DISCHARGE NEEDS:: Follow up appointment with PCP. PATIENT/FAMILY EDUCATION NEEDS:: Discharge education, any limitations, and follow up plan of care. Ask Me Three discussion. ANTICIPATED BARRIERS TO DISCHARGE:: No anticipated barriers to discharge. TRANSPORTATION:: Tanja will transport via private vehicle with her family. PLAN:: Tanja will discharge home when medically ready per MD. Patient will discharge home, likely with increased home health services and follow up with her PCP. CM will continue to offer support to patient, family and care team regarding discharge planning and disposition.
--- NOTE | 2018-08-17 08:08 | INITIAL_ITS ---
- If Service Date Differs Date of service: 08/17/18 Time of Service: 07:58 Care Management Initial Assess REASON FOR HOSPITALIZATION:: Gastric enteric fistula. PAST MEDICAL HISTORY/PAST SURGICAL HISTORY:: A-fib, CHF, B12 deficiency, compression fx spine, decubitus ulcer sacrum, macrocytic anemia, lumbago, malnutrition, myasthenia, osteoperosis, herpetic neuralgia. Surgical hx: G-tube placement. PREVIOUS FUNCTIONAL STATUS/SOCIAL/FAMILY SUPPORTS:: Tanja resides in [place] with her son and daughter in law. She had previously been living in [place] when her a year ago. At that time, her son and daughter in law asked her to move in with them and she agreed. Tanja has three additional adult children who do not live locally. 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 She reports that her family assists her with bathing, dressing and food preparation. She is independent with her medications. She utilizes a walker to ambulate and relies on [facility] and family for transportation. ADVANCE DIRECTIVES:: On file at [facility]. Frankie Carpio (son) health care agent. Has patient been provided with information about the portal?: No Did the patient sign up for the portal?: Yes CODE STATUS:: DNR/DNI INSURANCE COVERAGE / FINANCIAL ISSUES:: [employer], Medicare. CURRENT HOME/COMMUNITY SERVICES/EQUIPMENT:: Tanja has home health services for wound treatment 2-3/week. She utilzes a walker to ambulate. PRIMARY CARE PHYSICIAN:: Maribell Choi. POTENTIAL DISCHARGE NEEDS:: Follow up appointment with PCP. PATIENT/FAMILY EDUCATION NEEDS:: Discharge education, any limitations, and follow up plan of care. Ask Me Three discussion. ANTICIPATED BARRIERS TO DISCHARGE:: No anticipated barriers to discharge. TRANSPORTATION:: Tanja will transport via private vehicle with her family. PLAN:: Tanja will discharge home when medically ready per MD. Patient will discharge home, likely with increased home health services and follow up with her PCP. CM will continue to offer support to patient, family and care team regarding discharge planning and disposition.
[2018-08-17] MEDS: Hydrocortisone SOD SUC. 100 MG VIAL 30 MG IVP (08:33)
[2018-08-17] MEDS: Normal Saline Flush 10 ML SYR IVP ×3 (08:34→18:55)
--- NOTE | 2018-08-17 11:05 | DIABASSESS_ITS ---
DESCRIPTION/ASSESSMENT: Appreciate diabetes consult for Tanja Carpio, 82 year old hospitalized with fistula. BMI 21 No A1c Diabetes not seen on her problem list. Blood sugars 84-123 without prescribed medication. Her medication list does include prednisone. ASSESSMENT: No evidence of diabetes based on current blood sugars. Given her age, suggest if there is some hyperglycemia it may be from steroid use. Will follow as needed.
[2018-08-17] MEDS: Lactated Ringers 1,000 ML 80 ML IV (11:29)
--- NOTE | 2018-08-17 12:01 | STOM_PTH ---
PATIENT: Tanja Carpio LOC: U#:[id number] AGE/SX: 82/F ROOM: [id number] RE08/16/[address]: Julian Elizalde DO : 1935 BED: B DIS: 08/24/2018 SPEC #: [id number] RECD: 08/17/18 17:46 STATUS: RAMIREZ REQ #: [id number] MINDA: 08/17/18 12:[address]: Julian Elizalde DEPT: Surgical Specimen RECD BY: Chantell Elizabeth ENTERED: 08/17/18 17:46 SP TYPE: STOMACH OTHR DR: Maribell Choi Tissues: 1 - STOMACH BIOPSY Procedures: GROSS AND MICRO LEVEL 3 Comments: [id number]
[2018-08-17] MEDS: Normal Saline 100 ML 53.33 ML (13:15)
[2018-08-17] MEDS: Bupivacaine 0.5% Pres-Free 30 ML VIAL (13:15)
--- NOTE | 2018-08-17 14:01 | W.PM.OP ---
Date of service: 08/17/18 Time of Service: 14:01 Operative Note DATE OF PROCEDURE: 08/17/18 PRE-OP DIAGNOSIS: Gastrocutaneous fistua POST-OP DIAGNOSIS: same PROCEDURE: 1.Diagnostic Laparoscopy 2. Repair of of gastrocutaneous fistula SURGEON: Julian Elizalde PRESCHOOL PROGRAM DIRECTOR: Christa Gastelum ANESTHESIA: GETA (Seth Calabrese, RN X RAY; ASA 4 Mallampati class II) and local (1.3% exparel; 0.5% marcaine, plain; mixed with preservative free normal saline ) ESTIMATED BLOOD LOSS: 25 PATHOLOGY: other (gasric remnant on abdominal wall) COMPLICATIONS: None Patient was transported to: PACU Patient's condition: stable Implants: Wound vac placed for wound measuring 9x2x2 cm, oriented transversly in LUQ, with undermining medially for 3 cm. Indications: 82-year-old female who developed a chronic wound at her prior gastrostomy tube site. The wound had failed to close and there is been some question as to whether the the tube track was still open to the stomach. She underwent excision of the chronic wound with exploration of the gastrostomy tube tract down to the fascia. No definitive opening to the stomach was seen at the time, but the G-tube opening at the anterior fascial layer was oversewn. The patient did well immediately postop, but 4 days after surgery she presented to the emergency room with pain at her incision site. The wound was unremarkable, but CT did show some nonspecific findings at the abdominal wall. Subsequent to her presentation in the emergency room, she followed up in the surgery office complaining of wound drainage. 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 The wound was draining thick mucousy drainage consistent with gastric contents with an ascidic smell. She was admitted for pain control, fluid resuscitation, antibiotics, and wound care. It was recommended she get undergo repair of the gastrocutaneous fistula. The proposed plan was reviewed with her the risk of the procedure were discussed. All her questions were answered to her satisfaction. Consent was obtained to proceed. Findings: In exploring the abdomen laparoscopically, the stomach was found attached to the anterior abdominal wall superior and lateral to the umbilicus. This was subsequently divided from the anterior abdominal wall using an Endo BRANDIN stapler. The anterior abdominal wall wound was then explored the fascia opened, and the remnant still attached the abdominal wall was excised. The staple line on the stomach was oversewn, and a Otoniel patch was placed over this. The fascia was then closed the wound irrigated and a wound VAC placed to facilitate healing and prevent infection given the patient's multiple comorbidities. Procedure Description: The patient was brought to the operating room. A timeout was performed reviewing the patient's identification, allergies, medications, comorbidities, antibiotics, fire risk, and procedure. An endotracheal tube was inserted and general anesthesia was induced. The patient's abdomen was prepped with ChloraPrep, and block draped in standard sterile fashion. A 4 mm linear transverse incision was made infraumbilical. Blunt dissection was carried down to the linea alba which was grasped and elevated. A Veress needle was inserted into the abdomen, and its positioning checked with a saline drop test. The abdomen was then insufflated to 15 mmHg with without apparent incident. A 5 mm trocar was introduced in the abdomen under direct visualization. The area under the Veress needle trocar insertion was inspected and there is no apparent injury. A 12 mm trocar was then placed under direct visualization in the right upper quadrant at the level of the umbilicus and midclavicular line. I placed bilateral tap blocks under direct visualization using the local area I then proceeded to staple the stomach at the anterior abdominal wall using an Endo BRANDIN stapler with a, medium to thick, purple staple load. The stomach taken down from the anterior abdominal wall I proceeded to open the abdominal wound. The wound was opened its full length of the original incision. I performed gentle blunt dissection and was able to bluntly dissect medially several centimeters as the subcutaneous tissue was necrotic, but the fascia was intact. Exploring the wound it was clear that there was an opening to the stomach, and a fascial sutures had torn through due to the poor quality of the tissue. I divided the anterior rectus fascia, pulled the rectus muscles laterally divided the posterior rectus fascia and peritoneum to enter the abdomen. The gastric remnant still attached to the abdominal wall was excised. I palpated the NG tube in the stomach and pulled into position in the mid body of the stomach. I identified the staple line on the stomach this was oversewed with 3-0 silk sutures in a Lembert fashion. I then isolated a tongue of omentum and placed this over the staple line in the standard Otoniel patch fashion, Using 3-0 silk sutures. There was no evidence of leakage into the abdomen. I checked for hemostasis., And there is no evidence of bleeding. I removed my 5 mm and 12 mm trochars from the abdomen. The peritoneum and posterior rectus fascia were closed using 0 Vicryl in a running fashion the anterior rectus fascia was closed using 0 Vicryl suture in interrupted [id number] sutures. The wound was copiously irrigated and local was infiltrated around the fascia the wound was then measured the transverse dimensions 9 cm, longitudinal dimension 2 cm, and depth of 2 cm the wound tunneled medially for approximately 3 cm. A 2 layer wound VAC was then applied the fascia of my 12 mm trocar incision was closed using 0 Vicryl in a [id number] fashion. The trocar skin sites were closed using 4-0 Vicryl subcuticular fashion, and skin affix was then applied to the wounds. All counts reported as correct ?2. There were no complications during the case the patient tolerated the procedure well. She was extubated in the operating room brought to the postanesthesia care unit in good condition.
--- NOTE | 2018-08-17 14:18 | ROE_ITS ---
Date of service: 08/17/18 Time of Service: 14:01 Operative Note DATE OF PROCEDURE: 08/17/18 PRE-OP DIAGNOSIS: Gastrocutaneous fistua POST-OP DIAGNOSIS: same PROCEDURE: 1.Diagnostic Laparoscopy 2. Repair of of gastrocutaneous fistula SURGEON: Julian Elizalde LEGAL LIBRARIAN: Christa Gastelum ANESTHESIA: GETA (Seth Calabrese, DISABILITY COUNSELOR; ASA 4 Mallampati class II) and local ( 1.3% exparel; 0.5% marcaine, plain; mixed with preservative free normal saline ) ESTIMATED BLOOD LOSS: 25 PATHOLOGY: other (gasric remnant on abdominal wall) COMPLICATIONS: None Patient was transported to: PACU Patient's condition: stable Implants: Wound vac placed for wound measuring 9x2x2 cm, oriented transversly in LUQ, with undermining medially for 3 cm. Indications: 82-year-old female who developed a chronic wound at her prior gastrostomy tube site. The wound had failed to close and there is been some question as to whether the the tube track was still open to the stomach. She underwent excision of the chronic wound with exploration of the gastrostomy tube tract down to the fascia. No definitive opening to the stomach was seen at the time, but the G-tube opening at the anterior fascial layer was oversewn. The patient did well immediately postop, but 4 days after surgery she presented to the emergency room with pain at her incision site. The wound was unremarkable, but CT did show some nonspecific findings at the abdominal wall. Subsequent to her presentation in the emergency room, she followed up in the surgery office complaining of wound drainage. 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 The wound was draining thick mucousy drainage consistent with gastric contents with an ascidic smell. She was admitted for pain control, fluid resuscitation, antibiotics, and wound care. It was recommended she get undergo repair of the gastrocutaneous fistula. The proposed plan was reviewed with her the risk of the procedure were discussed. All her questions were answered to her satisfaction. Consent was obtained to proceed. Findings: In exploring the abdomen laparoscopically, the stomach was found attached to the anterior abdominal wall superior and lateral to the umbilicus. This was subsequently divided from the anterior abdominal wall using an Endo BRANDIN stapler. The anterior abdominal wall wound was then explored the fascia opened , and the remnant still attached the abdominal wall was excised. The staple line on the stomach was oversewn, and a Otoniel patch was placed over this. The fascia was then closed the wound irrigated and a wound VAC placed to facilitate healing and prevent infection given the patient's multiple comorbidities. Procedure Description: The patient was brought to the operating room. A timeout was performed reviewing the patient's identification, allergies, medications, comorbidities, antibiotics, fire risk, and procedure. An endotracheal tube was inserted and general anesthesia was induced. The patient's abdomen was prepped with ChloraPrep, and block draped in standard sterile fashion. A 4 mm linear transverse incision was made infraumbilical. Blunt dissection was carried down to the linea alba which was grasped and elevated. A Veress needle was inserted into the abdomen, and its positioning checked with a saline drop test. The abdomen was then insufflated to 15 mmHg with without apparent incident. A 5 mm trocar was introduced in the abdomen under direct visualization. The area under the Veress needle trocar insertion was inspected and there is no apparent injury. A 12 mm trocar was then placed under direct visualization in the right upper quadrant at the level of the umbilicus and midclavicular line. I placed bilateral tap blocks under direct visualization using the local area I then proceeded to staple the stomach at the anterior abdominal wall using an Endo BRANDIN stapler with a, medium to thick, purple staple load. The stomach taken down from the anterior abdominal wall I proceeded to open the abdominal wound. The wound was opened its full length of the original incision. I performed gentle blunt dissection and was able to bluntly dissect medially several centimeters as the subcutaneous tissue was necrotic, but the fascia was intact. Exploring the wound it was clear that there was an opening to the stomach, and a fascial sutures had torn through due to the poor quality of the tissue. I divided the anterior rectus fascia, pulled the rectus muscles laterally divided the posterior rectus fascia and peritoneum to enter the abdomen. The gastric remnant still attached to the abdominal wall was excised. I palpated the NG tube in the stomach and pulled into position in the mid body of the stomach. I identified the staple line on the stomach this was oversewed with 3- 0 silk sutures in a Lembert fashion. I then isolated a tongue of omentum and placed this over the staple line in the standard Otoniel patch fashion, Using 3- 0 silk sutures. There was no evidence of leakage into the abdomen. I checked for hemostasis., And there is no evidence of bleeding. I removed my 5 mm and 12 mm trochars from the abdomen. The peritoneum and posterior rectus fascia were closed using 0 Vicryl in a running fashion the anterior rectus fascia was closed using 0 Vicryl suture in interrupted [id number] sutures. The wound was copiously irrigated and local was infiltrated around the fascia the wound was then measured the transverse dimensions 9 cm, longitudinal dimension 2 cm, and depth of 2 cm the wound tunneled medially for approximately 3 cm. A 2 layer wound VAC was then applied the fascia of my 12 mm trocar incision was closed using 0 Vicryl in a [id number]-gn-lphwd fashion. The trocar skin sites were closed using 4-0 Vicryl subcuticular fashion, and skin affix was then applied to the wounds. All counts reported as correct ?2. There were no complications during the case the patient tolerated the procedure well. She was extubated in the operating room brought to the postanesthesia care unit in good condition.
--- NOTE | 2018-08-17 14:56 | PT.INNT ---
Date of service: 08/17/18 Time of Service: 14:56 PT Notes PHYSICAL THERAPY NOTE 08/17/18 PT Consult received, chart reviewed, attempted to see for PT eval, pt still in recovery PACU after surgery. Will complete PT eval in am Larissa Quintanilla PT
[2018-08-17] MEDS: HYDROmorphone 2 MG/ML VIAL IVP ×3 (15:59→22:30)
[2018-08-17] MEDS: POTASSIUM CHLORIDE/D5-0.45NACL 1,000 ML 75 MEQ IV (16:11)
[2018-08-17] MEDS: MAGNESIUM SULFATE 8.12 MEQ, MULTIVITAMIN 10 ML, THIAMINE 100 MG, FOLIC ACID 1 MG in Nor... 50 MG IV (16:12)
[2018-08-17] MEDS: Enoxaparin 40 MG/0.4 ML SYR SC (18:55)
[2018-08-17] MEDS: Pantoprazole 40 MG VIAL IVP (18:55)
[2018-08-17] MEDS: diphenhydrAMINE 50 MG/ML VIAL 25 MG IM/IVP (22:30)
[2018-08-18] VITALS (7 sets, daily range): BP systolic 107–163; BP diastolic 8–85; PULSE 69–82; RESP 16–20; TEMP 35.8–36.7; O2SAT 94–99
[2018-08-18] MEDS: Normal Saline Flush 10 ML SYR IVP ×3 (02:32→14:19)
[2018-08-18] MEDS: HYDROmorphone 2 MG/ML VIAL IVP ×3 (02:32→14:18)
[2018-08-18] MEDS: ACETAMINOPHEN 1,000 MG/100 ML BTL 400 MG IVPB ×3 (03:31→19:59)
[2018-08-18] MEDS: HYDROmorphone 2 MG/ML VIAL 1 MG IVP ×2 (06:06→16:48)
[2018-08-18] MEDS: POTASSIUM CHLORIDE/D5-0.45NACL 1,000 ML 75 MEQ IV ×2 (06:41→21:22)
[2018-08-18 07:29] LABS: Absolute Basophil Count 0.01 k/cumm (0.0-0.2); Absolute Eosinophil Count 0.29 k/cumm (0.0-0.7); Absolute Lymphocyte Count 0.81 k/cumm (1.2-3.4); Absolute Neutrophil Count 5.07 k/cumm (1.2-6.7); Basophils % 0.1; Eosinophils % 4.3; HCT 32.4 % (36.0-46.0); Lymphocytes % 12.1; Mean Corp. HGB Concentration 30.9 g/dL (32.0-36.0); Mean Corpuscular Hemoglobin 33.6 pg (27.0-33.0); Mean Corpuscular Volume 108.7 fL (80-95); Mean Platelet Volume 9.5 fL (8.0-11.0); Monocytes % 7.5; Platelet Count 182 x1000/uL (130-400); RBC 2.98 m/cumm (4.00-5.20); RBC Distribution Width 12.7 % (11.7-14.6); White Blood Cell Count 6.68 k/cumm (4.4-10.8)
[2018-08-18 07:37] LABS: Anion Gap 6.3 mmol/L (3-11); BUN 16 mg/dL (7-18); CO2 27.7 mmol/L (21.0-32.0); CREATININE 1.32 mg/dL (0.55-1.02); Calcium 8.1 mg/dL (8.5-10.1); Chloride 105 mmol/L (98-107); Estimated GFR 38.72 (mL/min/1.73m2); Glucose 77 mg/dL (70-100); Magnesium 2.2 mg/dL (1.8-2.4); Potassium 4.2 mmol/L (3.5-5.1); Sodium 139 mmol/L (136-145)
--- NOTE | 2018-08-18 09:30 | PGE_ITS ---
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 Gastrocutaneous fistula?fistula resolved, continue antibiotics, wound VAC in place for abdominal wound 2. Myasthenia gravis?continue IV hydrocortisone, switch to oral when taking good p.o. 3. Pain management?restarted methadone will start p.o. Dilaudid, and use IV for breakthrough, continue Toradol. 4. NG tube? scant amount overnight. Will remove NG tube start clear liquids 5. Warren catheter?will remove 6. Activity?physical therapy to assist in mobilizing patient post surgery 7. Bowel regimen will start bowel regimen today 8. Disposition?continue current care Subjective Patient reports: still having pain, no flatus and afebrile; denies nausea and vomiting Exam Const General: cooperative and no acute distress Nutritional Appearance: underweight Orientation: alert, awake and oriented x3 Resp Effort & Inspection: normal respiratory effort, no audible wheezes and not labored Cardio Rate: regular rate Rhythm: regular rhythm GI Inspection: no abdominal wall ecchymosis, distended (mildly distended) and incision (Wound vac in place) Palpation: soft and tender (over wound as expected) Rectal Exam - female: deferred Other: Wound with clean base, and sides, no active bleeding seen. Abdomen image: 2 1. Open incision where wound vac is placed, 9 x 2 x 2 cm with medially tunneling 2. area of tunneling Neuro General: moves all extremities, no focal motor deficits and CN's II-XI intact bilaterally Extrem General: no clubbing, cyanosis or edema Psych Appearance: grossly normal and well kempt Affect: normal affect Attitude: cooperative Judgment: judgment good Objective Objective Clinical Data: Vital Signs Temperature 36.5 C 08/18/18 08:45 Temperature Source Tympanic 08/18/18 08:45 Pulse 70 08/18/18 08:45 Pulse Rhythm Regular 08/18/18 00:30 Respiratory Rate 16 08/18/18 08:45 Respiratory Effort Non-Labored 08/18/18 00:30 Respiratory Depth Normal 08/18/18 00:30 Respiratory Pattern Normal 08/18/18 00:30 Blood Pressure 114/63 08/18/18 08:45 Pulse Oximetry 97 08/18/18 08:45 Oxygen Delivery Method Nasal Cannula 08/18/18 08:45 Oxygen Flow Rate 2 08/18/18 08:45 Pain Level 7 08/17/18 22:30 Comment 08/17/18 15:40 Intake & Output 08/17/18 08/18/18 08/18/18 18:59 06:59 18:59 Intake Total 1510 / 1510 1350.000 / 1350.000 Output Total 525 / 525 500 / 500 100 / 100 Balance 985 / 985 850.000 / 850.000 -100 / -100 Intake: IV 1510 / 1510 1350.000 / 1350.000 Output: Urine 500 / 500 500 / 500 100 / 100 Estimated Blood Loss Other: Urine Color Yellow Dark Dawna Yellow Urine Appearance Clear Clear Clear Emesis Description None Laboratory Results - last 24 hr 08/18/18 08/18/18 06:55 06:55 WBC 6.68 RBC 2.98 L Hgb 10.0 L Hct 32.4 L MCV 108.7 H MCH 33.6 H MCHC 30.9 L RDW 12.7 Plt Count 182 MPV 9.5 Immature Gran % 0.0 Neutrophils % 76.0 Lymphocytes % 12.1 Monocytes % 7.5 Eosinophils % 4.3 Basophils % 0.1 Absolute Neutrophils 5.07 Absolute Lymphocytes 0.81 L Absolute Monocytes 0.50 Absolute Eosinophils 0.29 Absolute Basophils 0.01 Sodium 139 Potassium 4.2 Chloride 105 Carbon Dioxide 27.7 Anion Gap 6.3 BUN 16 Creatinine 1.32 H Estimated GFR/1.73 m2 38.72 Glucose 77 Calcium 8.1 L Magnesium 2.2
[2018-08-18] MEDS: Hydrocortisone SOD SUC. 100 MG VIAL 30 MG IVP (10:18)
--- NOTE | 2018-08-18 10:37 | PT.INIE ---
Date of service: 08/18/18 Time of Service: 10:37 PT Notes Inpatient Physical Therapy Evaluation Date: 08/18/18 Referring Doctor: Julian Elizalde PT Orders: PT CONSULT: post operative ambulation, strengthening Precautions: Standard precautions, wound vac to abdomen Patient Profile/Admitting Diagnosis: Pt is an 82yr old female s/p laparoscopy and repair, gastrocutaneous fistula 08/17/[address] Elizalde PMHX: osteoporosis, myasthenia gravis, decubitis ulcer sacrum, macrocytic anemia, congestive heart failure, atrial fibrillation, herpetic neuralgia, B12 deficiency Social History/Home Situation: Lives in home with son and daughter in law, baseline mobility gait with FWW, receives assistance with bathing and dressing. Family provides transportation. Equipment Owned/DME: FWW Subjective: Pt sitting in chair, reports being in pain in abdomen, RN in room and aware, to provide pain medication. Pt states she cannot sit for long periods, reports she is more comfortable standing or lying down. Objective: General Observation: I UE IV, wound vac abdomen, 3 liters 02 NC Mental Status: A& O x3 Pain: c/o constant pain in abdomen, RN aware Bed Mobility/Transfers: Sit-stand: SBA with FWW Chair-bed: SBA with FWW Stand-sit: SBA Sit-supine: HOB flat, MinAx2 for trunk and LE's Gait: SBA with FWW 25ftx2, limited by pain. Pt returned to bed after gait session. Balance: Static Sitting: normal Dynamic Sitting: normal Static Standing: fair Dynamic Standing: fair Special Tests: Mobility Limitations Standardized Measure [facility] AM-PAC 6 clicks Basic Mobility Inpatient Short Form: Raw Score: 18 Standardized Score: 43.63 CMS Score: 46.58% CMS Modifier: CK Informed Consent/Education: Patient instructed in purpose of PT consult and plan of care. Assessment: . Pt is an 82yr old female s/p laparoscopy and repair, gastrocutaneous fistula 08/17/[address] Elizalde in setting of osteoporosis, myasthenia gravis, decubitis ulcer sacrum, macrocytic anemia, congestive heart failure, atrial fibrillation Patient presents with the following impairment level findings: wound vac to abdomen limiting mobiilty, post operative pain in abdomen limiting mobility, pain and decreased strength with positioning in bed and gettting into/out of bed due to post surgical pain, decreased strength with bed transfers, standing transfers, gait mobility requiring increased time to complete task and FWW for stability. Pt will benefit from skilled therapy intervention for strengthening and progressive mobility training, anticipate return to home setting when medically cleared. Impairments are contributing to the following functional limitations: AMPAC score CMS Score: 46.58% Patient is assessed as a Moderate 00100 complexity based on the following: History: see above Examination: see above Presentation: evolving Decision Making: AMPAC score CMS Score: 46.58% Goals: Goals X1 week 1. Supine-Sit supervision 2. Sit-Supine supervision 3. Sit-Stand supervision with FWW 4. Stand-Sit supervision 5. Bed-Chair supervision with FWW 6. Chair-Bed supervision with FWW 7. Gait supervision with FWW [id number] Plan of Care/Treatment Plan: 1-2x/day, 7 days/week x 1 week. Plan of care has been reviewed with the CATALOGUE LIBRARIAN providing the service under Physical Therapy direction. Initiate Physical Therapy intervention for strengthening, bed mobility, transfers, gait, stairs, balance training, use of assistive device. DISCHARGE RECOMMENDATIONS: Home with family TREATMENT CODE/TIME: 25min IE 1035 G Codes in the area mobility of walking and moving around: current status [id number] CK projected status GP [id number]. Discharge status (if discharging) GP [id number] CK based on AMPAC score CMS Score: 46.58% Larissa Quintanilla PT
--- NOTE | 2018-08-18 10:50 | IN_ITS ---
Date of service: 08/18/18 Time of Service: 10:37 PT Notes Inpatient Physical Therapy Evaluation Date: 08/18/18 Referring Doctor: Julian Elizalde PT Orders: PT CONSULT: post operative ambulation, strengthening Precautions: Standard precautions, wound vac to abdomen Patient Profile/Admitting Diagnosis: Pt is an 82yr old female s/p laparoscopy and repair, gastrocutaneous fistula 08/17/[address] Elizalde PMHX: osteoporosis, myasthenia gravis, decubitis ulcer sacrum, macrocytic anemia , congestive heart failure, atrial fibrillation, herpetic neuralgia, B12 deficiency Social History/Home Situation: Lives in home with son and daughter in law, baseline mobility gait with FWW, receives assistance with bathing and dressing. Family provides transportation. Equipment Owned/DME: FWW Subjective: Pt sitting in chair, reports being in pain in abdomen, RN in room and aware, to provide pain medication. Pt states she cannot sit for long periods , reports she is more comfortable standing or lying down. Objective: General Observation: I UE IV, wound vac abdomen, 3 liters 02 NC Mental Status: A& O x3 Pain: c/o constant pain in abdomen, RN aware Bed Mobility/Transfers: Sit-stand: SBA with FWW Chair-bed: SBA with FWW Stand-sit: SBA Sit-supine: HOB flat, MinAx2 for trunk and LE's Gait: SBA with FWW 25ftx2, limited by pain. Pt returned to bed after gait session. Balance: Static Sitting: normal Dynamic Sitting: normal Static Standing: fair Dynamic Standing: fair Special Tests: Mobility Limitations Standardized Measure [facility] AM-PAC 6 clicks Basic Mobility Inpatient Short Form: Raw Score: 18 Standardized Score: 43.63 CMS Score: 46.58% CMS Modifier: CK Informed Consent/Education: Patient instructed in purpose of PT consult and plan of care. Assessment: . Pt is an 82yr old female s/p laparoscopy and repair, gastrocutaneous fistula 08/17/[address] Elizalde in setting of osteoporosis, myasthenia gravis, decubitis ulcer sacrum, macrocytic anemia, congestive heart failure, atrial fibrillation Patient presents with the following impairment level findings: wound vac to abdomen limiting mobiilty, post operative pain in abdomen limiting mobility, pain and decreased strength with positioning in bed and gettting into/out of bed due to post surgical pain, decreased strength with bed transfers, standing transfers, gait mobility requiring increased time to complete task and FWW for stability. Pt will benefit from skilled therapy intervention for strengthening and progressive mobility training, anticipate return to home setting when medically cleared. Impairments are contributing to the following functional limitations: AMPAC score CMS Score: 46.58% Patient is assessed as a Moderate 89047 complexity based on the following: History: see above Examination: see above Presentation: evolving Decision Making: AMPAC score CMS Score: 46.58% Goals: Goals X1 week 1. Supine-Sit supervision 2. Sit-Supine supervision 3. Sit-Stand supervision with FWW 4. Stand-Sit supervision 5. Bed-Chair supervision with FWW 6. Chair-Bed supervision with FWW 7. Gait supervision with FWW [id number] Plan of Care/Treatment Plan: 1-2x/day, 7 days/week x 1 week. Plan of care has been reviewed with the PSYCHOLOGY INSTRUCTOR providing the service under Physical Therapy direction. Initiate Physical Therapy intervention for strengthening, bed mobility, transfers, gait, stairs, balance training, use of assistive device. DISCHARGE RECOMMENDATIONS: Home with family TREATMENT CODE/TIME: 25min IE 1035 G Codes in the area mobility of walking and moving around: current status [id number] CK projected status GP [id number]. Discharge status (if discharging) GP [id number] CK based on AMPAC score CMS Score: 46.58% Larissa Quintanilla PT
--- NOTE | 2018-08-18 11:56 | PHARADMIT ---
Addendum entered by Robert York III 08/23/18 10:59: Pharmacy Note Subjective Tolerating regular diet, Anticipate discharge later today. Objective VS-OK pain:8/10 No Labs Assessment Zosyn dc'd Plan Expect discharge Original Note: Addendum entered by Vianca Rubio 08/22/18 11:24: Pharmacy Note Subjective Wound-VAC continues, MD reports expecting discharge tomorrow Objective pain 5/10, no vs reported yet, no labs today Assessment pip/tazo Iv continues, senna/DSS changed from MARIA to PRN no other med changes noted home meds started Eliquis, Dulcolax, DSS,Senna Gabapentin, Dilaudid, Melatonin, vit B 12, Prednisone Plan switch to PO abx when appropriate Original Note: Addendum entered by Robert York III 08/20/18 14:30: Pharmacy Note Subjective Wound-VAC continues, receiving PT for deconditioning. Objective VS-OK Pain:10 No Labs, Had BM today Assessment PO Prednisone ordered. 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 Has wound VAC, on Zosyn. Getting OT. NG tube removed starting clear liquids. Objective VS-OK Pain:910 (chronic back pain) SCr-1.38 Lytes,H&H,Plts,WBC-OK No BM yet Assessment Zosyn IV continues. OnMethadone for chronic pain.. Bowel regimen started Solu-Medrol to PO Prednisone for Myasthenia Gravis Plan Continue current treatment Original Note: Admission Pharmacy Clinical Review GASTRIC ENTERIC FISTULA Code Status DNR/DNI Current Weight Wgt- 62.7 kg Renally Cleared and Narrow Therapeutic Index Meds CrCl~ 33.6mL/min Meds-OK QTc Value / Action Taken NA BP Control, Fever BP- 107/69 Tmax_ 36.6C Electrolytes reviewed Na- 139 K+4.2 Mag-2.2 DVT Prophylaxis Lovenox Opiate Usage / Scheduled Bowel Regimen Ordered Yes No Plt/SCr for Heparin / Enoxaparin Plts-182 SCr-1.32 INR for Warfarin inr-1.0 H/H stable, WBC/Bands H&H- 10.0/32.4 WBC-6.68 Antibiotic appropriateness Zosyn Cultures and Sensitivities none Surgical ABX d/c within 24 hr na DM control / Insulin Dosing BG- 77 Insulin, Heart Failure (Check EF%) (FAHAD's, B-Block, Diuretics) none IV to PO Switch No Home Meds Reviewed Yes Home Meds Not Ordered Eliquis, Dulcolax, B-12, DSS, FolicAcid, M-Vites, Senna Gabapentin,. Dilaudid, Melatonin, Iron, Vit-D 50,000, Prednisone Comments
[2018-08-18] MEDS: Methadone 5 MG TAB PO (12:26)
--- NOTE | 2018-08-18 14:14 | PDOC.CMPRO ---
- If Service Date Differs Date of service: 08/18/18 Time of Service: 14:14 Care Management Progress Note S/O: Patient presented at interdisciplinary rounds. Tanja is lying in bed watching the Red Sox when CM visits this afternoon. She is engaged in conversation, makes good eye contact and is talkative. Tanja reports that she loves the Red Sox and is happy that there are two games on today that can take her mind off of her situation. She went to the OR with Dr. Elizalde yesterday for correction of a gastrocutaneous fistula. She has a wound vac in place and reports that she has pain but is otherwise doing ok. A: 82 year old female admitted with a gastric enteric fistula. P: Tanja will discharge home when medically ready per MD. Anticipate patient will discharge home with increased home health services and follow up with her PCP. Tanja's family will transport her via private vehicle. CM will continue to provide support to patient, family and care team regarding discharge planning and disposition.
--- NOTE | 2018-08-18 14:58 | CHAPLAIN ---
Tanja was resting in bed when I visited. She was very pleasant and told me about her spiritual background. She was raised Christianity but is now a [employer], and she shared how she made that transition. She is a [facility] [employer] [facility] which she enjoys very much. She said she felt very comfortable as soon as she walked into the meeting house, and was grateful to find a [employer] Meeting close to her home in [facility] when she moved her about a year and a half ago. I left when a friend arrived to visit.
--- NOTE | 2018-08-18 15:44 | NT_ITS ---
Date of service: 08/18/18 Time of Service: 15:43 PT Notes 08/18/18 Patient refused afternoon PT session, stating that she was in too much pain from a dressing change this afternoon. Will attempt to resume PT services tomorrow morning. Magalie Blanca, STAFFING AND SCHEDULING COORDINATOR
[2018-08-18] MEDS: Pantoprazole 40 MG VIAL IVP (18:58)
[2018-08-18] MEDS: Enoxaparin 40 MG/0.4 ML SYR SC (18:58)
[2018-08-18] MEDS: Insulin Aspart 300 UNITS/3 ML PEN SC (18:59)
[2018-08-18] MEDS: Sennosides/Docusate Sodium TAB 1 TAB PO (19:59)
[2018-08-18] MEDS: HYDROmorphone 2 MG TAB PO (20:21)
[2018-08-18] MEDS: diphenhydrAMINE 50 MG/ML VIAL 25 MG IM/IVP (20:22)
[2018-08-18] MEDS: Methadone 5 MG TAB 2.5 MG PO (21:05)
[2018-08-18] MEDS: HYDROmorphone 2 MG/ML VIAL 0.5 MG IVP (23:11)
[2018-08-19] MEDS: HYDROmorphone 2 MG TAB PO ×5 (00:35→18:20)
[2018-08-19] MEDS: HYDROmorphone 2 MG/ML VIAL 1 MG IVP (02:24)
[2018-08-19 04:00] VITALS: BP 148/72; PULSE 70; RESP 20; TEMP 36.6; O2SAT 95
[2018-08-19] MEDS: ACETAMINOPHEN 1,000 MG/100 ML BTL 400 MG IVPB (04:23)
[2018-08-19 07:45] VITALS: BP 149/79; PULSE 55; RESP 19; TEMP 36.2; O2SAT 96
[2018-08-19 07:49] LABS: Abs Immature Grans 0.01 k/cumm (0.0-0.09); Absolute Basophil Count 0.01 k/cumm (0.0-0.2); Absolute Eosinophil Count 0.32 k/cumm (0.0-0.7); Absolute Lymphocyte Count 0.75 k/cumm (1.2-3.4); Absolute Monocyte Count 0.55 k/cumm (0.11-0.7); Absolute Neutrophil Count 4.29 k/cumm (1.2-6.7); Anion Gap 8.7 mmol/L (3-11); BUN 13 mg/dL (7-18); Basophils % 0.2; CO2 25.3 mmol/L (21.0-32.0); CREATININE 1.38 mg/dL (0.55-1.02); Calcium 8.2 mg/dL (8.5-10.1); Chloride 107 mmol/L (98-107); Eosinophils % 5.4; Estimated GFR 36.79 (mL/min/1.73m2); Glucose 76 mg/dL (70-100); HCT 33.2 % (36.0-46.0); HGB 10.4 g/dL (12.0-15.5); Immature Grans % 0.2; Lymphocytes % 12.6; Mean Corp. HGB Concentration 31.3 g/dL (32.0-36.0); Mean Corpuscular Hemoglobin 33.7 pg (27.0-33.0); Mean Corpuscular Volume 107.4 fL (80-95); Mean Platelet Volume 9.6 fL (8.0-11.0); Monocytes % 9.3; Neutrophils % 72.3; Platelet Count 200 x1000/uL (130-400); Potassium 4.2 mmol/L (3.5-5.1); RBC 3.09 m/cumm (4.00-5.20); RBC Distribution Width 12.5 % (11.7-14.6); Sodium 141 mmol/L (136-145); White Blood Cell Count 5.93 k/cumm (4.4-10.8)
[2018-08-19 07:50] VITALS: O2SAT 96
--- NOTE | 2018-08-19 08:31 | PT.INTREAT ---
Date of service: 08/19/18 Time of Service: 08:11 PT Notes Inpatient Physical Therapy Treatment Note Date: 08/19/18 PRECAUTIONS: Standard precautions, wound vac abdomen SUBJECTIVE: Pt reports she had a terrible night, states she used the bedpan for toileting and she has 9/10 pain this morning. RN notified and to bring pain medication. Pt encouraged to get out of bed for toileting and walk to bathroom with nursing. Discussion with patient regarding importance of mobility for strengthening, to prevent complications post op and to facilitate healing. Pt verbalized understanding. OBJECTIVE: General observation: wound vac abdomen, L UE IV, 3 liters 02 NC 02 sats 96% PAIN: 9/10 pain in abdomen Bed Mobility/Transfers: Supine-sit: HOB 35 degrees, independent Sit-stand: SBA with FWW Bed-chair: SBA with FWW Stand-sit: SBA Gait: SBA with FWW 25ftx4, cues to stand closer to FWW to reduce tension on back and abdomen and use UE's for support. Pt up in chair after gait training. Therex: ankle pumps, quad sets, glute sets x 20 reps. Pt instructed to peform every 2hours x 20reps. Balance: Static Sitting: normal Dynamic Sitting: normal Static Standing: fair Dynamic Standing: fair ASSESSMENT: Pt still reporting 9/10 pain, was able to progress gait distance and mobility with FWW with encouragement, progressed therapeutic exercise and up to chair for breakfast. Pt need encouragement to use bathroom instead of bedpan for toileting and to increase mobility with nursing staff between therapy sessions. PLAN: Progress strengthening Progress gait distance Progress transfers TREATMENT CODE/TIME: 24min Tax1 TP x1 8:10 Larissa Quintanilla PT
--- NOTE | 2018-08-19 08:32 | W.PM.PROGNOT ---
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 Gastrocutaneous fistula?fistula resolved, continue antibiotics, wound VAC in place for abdominal wound 2. Myasthenia gravis?continue IV hydrocortisone, switch to oral when taking good p.o. 3. Pain management?restarted methadone will start p.o. Dilaudid, and use IV for breakthrough, continue Toradol. Encouraged participation with PT and OT along with position changes throughout the day. Also discussed use of the heating pad for her back pain. 4. NG tube? scant amount overnight. Will remove NG tube start clear liquids 5. Warren catheter?Has been removed 6. Activity?OT consult ordered for assist in ADLs secondary to deconditioning. Physical therapy to assist in mobilizing patient post surgery 7. Bowel regimen started yesterday 8. Disposition?continue current care Discussed the above assessment and plan with Dr. Quispe, whom agrees with the above. Subjective Interval history since last seen: Tanja reports that she had a rough night last night, secondary to her back pain which has been a chronic issue for her. She reports that she has not been able to identify any activities or positions that alleviate her discomfort. She states that her abdomen feels pretty good. Denies abdominal pain, discomfort or bloating. Exam Const General: cooperative and frail appearing Orientation: alert and awake Resp Effort & Inspection: normal respiratory effort GI Palpation: soft, no guarding and nontender Other: Abdominal wound upper, right quadrant with wound vac in place. Objective Objective Clinical Data: Abnormal lab results 08/19/18 08/19/18 Range/Units 07:10 07:10 RBC 3.09 L (4.00-5.20) m/cumm Hgb 10.4 L (12.0-15.5) g/dL Hct 33.2 L (36.0-46.0) % MCV 107.4 H (80-95) fL MCH 33.7 H (27.0-33.0) pg MCHC 31.3 L (32.0-36.0) g/dL Absolute Lymphocytes 0.75 L (1.2-3.4) k/cumm Creatinine 1.38 H (0.55-1.02) mg/dL Calcium 8.2 L (8.5-10.1) mg/dL Vital Signs Temperature 36.6 C 08/19/18 04:00 Temperature Source Tympanic 08/19/18 04:00 Pulse 70 08/19/18 04:00 Pulse Rhythm Regular 08/19/18 04:00 Respiratory Rate 20 08/19/18 04:00 Respiratory Effort Non-Labored 08/19/18 04:00 Respiratory Depth Normal 08/19/18 04:00 Respiratory Pattern Normal 08/19/18 04:00 Blood Pressure 148/72 H 08/19/18 04:00 Pulse Oximetry 95 08/19/18 04:00 Oxygen Delivery Method Nasal Cannula 08/19/18 04:00 Oxygen Flow Rate 15 08/19/18 04:00 Pain Level 7 08/19/18 04:39 Comment 08/17/18 15:40 Intake & Output 08/18/18 08/18/18 08/19/18 11:59 23:59 11:59 Intake Total 925 / 925 3073.2 / 3073.2 150 / 150 Output Total 600 / 600 750 / 750 800 / 800 Balance 325 / 325 2323.2 / 2323.2 -650 / -650 Intake: IV 625 / 625 2323.2 / 2323.2 150 / 150 Oral 300 / 300 750 / 750 Output: Urine 600 / 600 750 / 750 800 / 800 Other: Urine Color Yellow Yellow Yellow Urine Appearance Clear Clear Clear Urine Odor Normal Normal Voiding Methods Bedpan Bedpan Diaper Incontinent Laboratory Results WBC 5.93 k/cumm (4.4-10.8) 08/19/18 07:10 RBC 3.09 m/cumm (4.00-5.20) L 08/19/18 07:10 Hgb 10.4 g/dL (12.0-15.5) L 08/19/18 07:10 Hct 33.2 % (36.0-46.0) L 08/19/18 07:10 MCV 107.4 fL (80-95) H 08/19/18 07:10 MCH 33.7 pg (27.0-33.0) H 08/19/18 07:10 MCHC 31.3 g/dL (32.0-36.0) L 08/19/18 07:10 RDW 12.5 % (11.7-14.6) 08/19/18 07:10 Plt Count 200 x1000/uL (130-400) 08/19/18 07:10 MPV 9.6 fL (8.0-11.0) 08/19/18 07:10 Immature Gran % 0.2 08/19/18 07:10 Neutrophils % 72.3 08/19/18 07:10 Lymphocytes % 12.6 08/19/18 07:10 Monocytes % 9.3 08/19/18 07:10 Eosinophils % 5.4 08/19/18 07:10 Basophils % 0.2 08/19/18 07:10 Absolute Neutrophils 4.29 k/cumm (1.2-6.7) 08/19/18 07:10 Absolute Lymphocytes 0.75 k/cumm (1.2-3.4) L 08/19/18 07:10 Absolute Monocytes 0.55 k/cumm (0.11-0.7) 08/19/18 07:10 Absolute Eosinophils 0.32 k/cumm (0.0-0.7) 08/19/18 07:10 Absolute Basophils 0.01 k/cumm (0.0-0.2) 08/19/18 07:10 ESR 101 MM/HR (0-30) H 08/16/18 16:10 PT 9.6 sec (9.3-10.8) 08/17/18 06:45 INR 1.0 (1.0-3.5) 08/17/18 06:45 APTT 26.3 sec (21.0-31.4) 08/17/18 06:45 Sodium 141 mmol/L (136-145) 08/19/18 07:10 Potassium 4.2 mmol/L (3.5-5.1) 08/19/18 07:10 Chloride 107 mmol/L (98-107) 08/19/18 07:10 Carbon Dioxide 25.3 mmol/L (21.0-32.0) 08/19/18 07:10 Anion Gap 8.7 mmol/L (3-11) 08/19/18 07:10 BUN 13 mg/dL (7-18) 08/19/18 07:10 Creatinine 1.38 mg/dL (0.55-1.02) H 08/19/18 07:10 Estimated GFR/1.73 m2 36.79 (mL/min/1.73m2) 08/19/18 07:10 Glucose 76 mg/dL (70-100) 08/19/18 07:10 Calcium 8.2 mg/dL (8.5-10.1) L 08/19/18 07:10 Magnesium 2.2 mg/dL (1.8-2.4) 08/18/18 06:55 Total Bilirubin 0.3 mg/dL (0.2-1.0) 08/16/18 16:10 AST 13 U/L (15-37) L 08/16/18 16:10 ALT 19 U/L (12-78) 08/16/18 16:10 Alkaline Phosphatase 77 U/L (46-116) 08/16/18 16:10 C-Reactive Protein 14.06 mg/dL (0.0-0.3) H 08/16/18 16:10 Total Protein 7.2 g/dL (6.4-8.2) 08/16/18 16:10 Albumin 3.1 g/dL (3.4-5.0) L 08/16/18 16:10
[2018-08-19] MEDS: Apixaban 2.5 MG TAB PO ×2 (08:39→19:46)
[2018-08-19] MEDS: Sennosides/Docusate Sodium TAB 1 TAB PO ×2 (08:39→19:46)
[2018-08-19] MEDS: Hydrocortisone SOD SUC. 100 MG VIAL 30 MG IVP (08:40)
[2018-08-19] MEDS: Methadone 5 MG TAB PO (08:40)
--- NOTE | 2018-08-19 09:03 | OT.INIE ---
Occupational Therapy Notes Inpatient Occupational Therapy Evaluation Date: 08/19/18 Referring Doctor:MARILEE Hansen OT Orders: Please evaluate and treat secondary to low activity tolerance and deconditioning. Precautions: Stanard, wound vac to abdomen PATIENT PROFILE/ADMITTING DIAGNOSIS: Pt is an 82 year old female s/p laparoscopy and repair with gastrocutaneous fistula 08/17/[address] Elizalde. Past Medical History: osteoporosis, myasthenia gravis, decubitis ulcer sacrum, macrocytic anemia, congestive heart failure, atrial fibrillation, herpetic neuralgia, B12 deficiency Current Functional Limitations: Increased pain to abdomen, chronic back pain, decreased (L) UE AROM, Decreased (I) in functional mobility, decreased (I) in upper and lower body dressing, and bathing routine. Social History/Home Situation: Pt reports that she lives in [place] with her son and his family. She has no stairs in the home that she needs to use and a ramp to enter. Pt reports that she was previously receiving OT from home health. And that she has a step in tub with removable shower head. PTs baseline (I) in ADLs per pt reports is as follows: Dressing (I) both sitting in chair and standing with FWW Eating (I), has (A) with cooking meals Grooming (I) sitting in chair Toileting (I) with use of grab bars Bathing (I) in step in tub with removable shower head while sitting in shower chair. Equipment owned/DME: FWW, Grab bars, shower chair, removable shower head. SUBJECTIVE: Pt was sitting in chair when OT arrived. She reports that she was in increased back to her back and abdomen. She states that she would participate in OT consult but was better off yesterday. Pt states that she had no falls in the past 6 months but was admitted to [facility] from a small hole in her stomach from feeding tube that wouldn't close. Pt reports that the feeding tube was removed 1 year ago. RN gave pt medication at start of OT session which pt started to dry heave and vomit. OBJECTIVE: General Observation: IV (L) arm, abdominal wound vac Mental Status: A&O x3 Pain: Pt reports back pain 8/10 due to compression fx, and increased abdomen pain. When assessing ROM pt also reports 8/10 (L) arm pain which she states is from shingles 4 years ago. Pt reports that that she typically wears a lidocane patch on (L) arm. ROM: RUE Flexion limited 100*, elbow WFL L UE Flexion limited to 80* with increased pain, reports increased stomach pain. STRENGTH: RUE flexion 1/5, elbow 3/5, grinder set up operator thread 5/5 LUE flexion 1/5, elbow 3/5, grinder set up operator thread 5/5 FUNCTIONAL MOBILITY/ADLS: GROOMING sitting in chair with max (A) set up and clean up, pt able to brush teeth (I) with ideal technique. BALANCE: Static sitting Good SPECIAL TESTS: Daily Activity Limitations Standardized Measure [facility] AM -PAC ?6 clicks? Daily Activity Inpatient Short Form: Raw score: 18 Standardized score: 38.66 CMS score: 46.65% CMS modifier: CK INFORMED CONSENT/EDUCATION: Pt instructed in purpose of OT Consult and plan of care. ASSESSMENT: Patient is a 82 year-old female referred to occupational therapy services with diagnosis of low activity tolerance and deconditioning. Patient presents with clinical signs and symptoms consistent with this dx, as demonstrated by the following impairment level findings: decreased ROM (B) UE, decreased strength (B) UE, decreased (I) in ADL routine, decreased (I) in functional mobility. Impairments are contributing to the following functional limitations: Difficulty and decreased (I) in bathing, grooming, toileting, eating, and dressing. Pt would benefit from skilled OT services for education in energy conservations, education on dressing, bathing, grooming and toileting techniques, stretching for UE and education in adaptive equipment as needed. AMPAC score 18, CMS score 46.65% Patient is assessed as a Moderate 67751 complexity based on the following: History: See PMHX Examination: See functional limitations noted above Presentation: Evolving Decision Making: AMPAC score 18, CMS score 46.65% GOALS Goals x1 week 1. Transfers S, FWW 2. Dressing (I) upper and lower body dressing sitting in chair with use of (B) UE when appropriate 3. Bathing Min (A) with transfer into step in tub sitting on shower chair, able to (I) wash upper and lower extremities 4. Toileting (I) on toilet. 5. Eating (I) PLAN OF CARE/TREATMENT PLAN: 1x/day, 5 days/ week x 1week Initiate Occupational Therapy Services for bathing, dressing, grooming, toileting, eating, transfer training. DISCHARGE RECOMMENDATIONS Home with family. TREATMENT TIME/MINUTES/CODES 30 min, IE Mod, 08:30 G Codes in the area of self- : washing oneself, toileting, dressing, eating and drinking, current status [id number] CK projected status GP [id number].
[2018-08-19] MEDS: POTASSIUM CHLORIDE/D5-0.45NACL 1,000 ML 75 MEQ IV ×2 (10:16→23:51)
[2018-08-19 11:35] VITALS: BP 156/86; PULSE 80; RESP 19; TEMP 36.1; O2SAT 96
[2018-08-19] MEDS: Acetaminophen 325 MG TAB 650 MG PO ×2 (12:28→19:46)
[2018-08-19] MEDS: Ondansetron 4 MG/2 ML VIAL IVP ×2 (12:35→22:18)
[2018-08-19] MEDS: Normal Saline Flush 10 ML SYR IVP ×4 (12:35→23:51)
--- NOTE | 2018-08-19 14:10 | PGE_ITS ---
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 Gastrocutaneous fistula?fistula resolved, continue antibiotics, wound VAC in place for abdominal wound 2. Myasthenia gravis?Po prednisone started 3. Pain management?restarted methadone will start p.o. Dilaudid. Encouraged participation with PT and OT along with position changes throughout the day. Also discussed use of the heating pad for her back pain. Needs to ambulate tid. 4. Diet: Tolerated clear liquids. Advanced to full liquids 6. Activity?OT consult ordered for assist in ADLs secondary to deconditioning. Physical therapy to assist in mobilizing patient post surgery 7. Bowel regimen started yesterday 8. Disposition?continue current care 9. Pressure ulcer: Wound consult placed. 10. MS- awaiting to see if Dr. Elizalde was able to get a hold of her Dr's down at [facility] regarding her Plasmaphoresis. Discussed the above assessment and plan with Dr. Quispe, whom agrees with the above. Subjective Interval history since last seen: Patient complains of back pain. Has only gotten up once so far today. She is worried about her plasmaphoresis for her MS which is scheduled for tomorrow. Patient also complains of post-herpetic pain on her left upper extremity. She is asking for a lidocaine patch. This is not on her list of meds. States her pressure ulcer dressing has not been changed since the . Objective Objective Clinical Data: Abnormal lab results 08/19/18 08/19/18 Range/Units 07:10 07:10 RBC 3.09 L (4.00-5.20) m/cumm Hgb 10.4 L (12.0-15.5) g/dL Hct 33.2 L (36.0-46.0) % MCV 107.4 H (80-95) fL MCH 33.7 H (27.0-33.0) pg MCHC 31.3 L (32.0-36.0) g/dL Absolute Lymphocytes 0.75 L (1.2-3.4) k/cumm Creatinine 1.38 H (0.55-1.02) mg/dL Calcium 8.2 L (8.5-10.1) mg/dL Vital Signs Temperature 97.2 F L 08/19/18 07:45 Temperature Source Tympanic 08/19/18 07:45 Pulse 55 L 08/19/18 07:45 Pulse Rhythm Regular 08/19/18 08:45 Respiratory Rate 19 08/19/18 07:45 Respiratory Effort Non-Labored 08/19/18 08:45 Respiratory Depth Normal 08/19/18 08:45 Respiratory Pattern Normal 08/19/18 08:45 Blood Pressure 149/79 H 08/19/18 07:45 Pulse Oximetry 96 08/19/18 07:50 Oxygen Delivery Method Nasal Cannula 08/19/18 07:50 Oxygen Flow Rate 2 08/19/18 07:50 Pain Level 6 08/19/18 12:29 Comment 08/17/18 15:40 Intake & Output 08/18/18 08/19/18 08/19/18 23:59 11:59 23:59 Intake Total 3073.2 / 3073.2 1407.5 / 1407.5 Output Total 750 / 750 800 / 800 400 / 400 Balance 2323.2 / 2323.2 607.5 / 607.5 -400 / -400 Intake: IV 2323.2 / 2323.2 1167.5 / 1167.5 Oral 750 / 750 240 / 240 Output: Urine 750 / 750 800 / 800 400 / 400 Other: Urine Color Yellow Yellow Yellow Urine Appearance Clear Clear Clear Urine Odor Normal Normal Voiding Methods Bedpan Bedpan Bedside Commode Diaper Incontinent Laboratory Results WBC 5.93 k/cumm (4.4-10.8) 08/19/18 07:10 RBC 3.09 m/cumm (4.00-5.20) L 08/19/18 07:10 Hgb 10.4 g/dL (12.0-15.5) L 08/19/18 07:10 Hct 33.2 % (36.0-46.0) L 08/19/18 07:10 MCV 107.4 fL (80-95) H 08/19/18 07:10 MCH 33.7 pg (27.0-33.0) H 08/19/18 07:10 MCHC 31.3 g/dL (32.0-36.0) L 08/19/18 07:10 RDW 12.5 % (11.7-14.6) 08/19/18 07:10 Plt Count 200 x1000/uL (130-400) 08/19/18 07:10 MPV 9.6 fL (8.0-11.0) 08/19/18 07:10 Immature Gran % 0.2 08/19/18 07:10 Neutrophils % 72.3 08/19/18 07:10 Lymphocytes % 12.6 08/19/18 07:10 Monocytes % 9.3 08/19/18 07:10 Eosinophils % 5.4 08/19/18 07:10 Basophils % 0.2 08/19/18 07:10 Absolute Neutrophils 4.29 k/cumm (1.2-6.7) 08/19/18 07:10 Absolute Lymphocytes 0.75 k/cumm (1.2-3.4) L 08/19/18 07:10 Absolute Monocytes 0.55 k/cumm (0.11-0.7) 08/19/18 07:10 Absolute Eosinophils 0.32 k/cumm (0.0-0.7) 08/19/18 07:10 Absolute Basophils 0.01 k/cumm (0.0-0.2) 08/19/18 07:10 ESR 101 MM/HR (0-30) H 08/16/18 16:10 PT 9.6 sec (9.3-10.8) 08/17/18 06:45 INR 1.0 (1.0-3.5) 08/17/18 06:45 APTT 26.3 sec (21.0-31.4) 08/17/18 06:45 Sodium 141 mmol/L (136-145) 08/19/18 07:10 Potassium 4.2 mmol/L (3.5-5.1) 08/19/18 07:10 Chloride 107 mmol/L (98-107) 08/19/18 07:10 Carbon Dioxide 25.3 mmol/L (21.0-32.0) 08/19/18 07:10 Anion Gap 8.7 mmol/L (3-11) 08/19/18 07:10 BUN 13 mg/dL (7-18) 08/19/18 07:10 Creatinine 1.38 mg/dL (0.55-1.02) H 08/19/18 07:10 Estimated GFR/1.73 m2 36.79 (mL/min/1.73m2) 08/19/18 07:10 Glucose 76 mg/dL (70-100) 08/19/18 07:10 Calcium 8.2 mg/dL (8.5-10.1) L 08/19/18 07:10 Magnesium 2.2 mg/dL (1.8-2.4) 08/18/18 06:55 Total Bilirubin 0.3 mg/dL (0.2-1.0) 08/16/18 16:10 AST 13 U/L (15-37) L 08/16/18 16:10 ALT 19 U/L (12-78) 08/16/18 16:10 Alkaline Phosphatase 77 U/L (46-116) 08/16/18 16:10 C-Reactive Protein 14.06 mg/dL (0.0-0.3) H 08/16/18 16:10 Total Protein 7.2 g/dL (6.4-8.2) 08/16/18 16:10 Albumin 3.1 g/dL (3.4-5.0) L 08/16/18 16:10
--- NOTE | 2018-08-19 14:51 | PT.INTREAT ---
Date of service: 08/19/18 Time of Service: 14:26 PT Notes Date: 08/19/18 PRECAUTIONS: Standard precautions, wound vac abdomen SUBJECTIVE: Pt in bed, agreeable to mobilize with therapy, lunch of soup and tea brought to room, pt wanting to sit in chair for lunch. OBJECTIVE: General observation: wound vac abdomen, L UE IV, 3 liters 02 NC 02 sats 96% PAIN: 5/10 pain in abdomen Bed Mobility/Transfers: Supine-sit: HOB 35 degrees, CGA with patient pulling on therapist's arm Sit-stand: SBA with FWW Bed-chair: SBA with FWW Stand-sit: SBA Gait: SBA with FWW 25ftx2, improved stride and michelle with this session. Pt positioned up in chair for lunch. Therex: ankle pumps, quad sets, glute sets x 20 reps. Pt instructed to peform every 2hours x 20reps. Balance: Static Sitting: normal Dynamic Sitting: normal Static Standing: fair Dynamic Standing: fair ASSESSMENT: Still reports abdomen pain with position changes, improved mobility this afternoon with standing transfers and gait short distances. Up in chair for 2nd time today. Will continue to progress strengthening and increased gait distance over next few sessions, pain control will be critical to progress. PLAN: Progress strengthening Progress gait distance Progress transfers TREATMENT CODE/TIME: 23min Tax1 [id number] Larissa Quintanilla PT
[2018-08-19] MEDS: Lidocaine 5% Patch 1 PATCH TP (15:25)
--- NOTE | 2018-08-19 15:41 | CHAPLAIN ---
I had a short visit with Tanja this afternoon. Her daughter Werner was with her. Tanja said she had a terrible night and was hoping that she would feel better today. Tanja is [employer] and a member of the [employer] held in [place].
--- NOTE | 2018-08-19 15:57 | PDOC.CMPRO ---
- If Service Date Differs Date of service: 08/19/18 Time of Service: 15:57 Care Management Progress Note S/O: CM met with Tanja at the bedside she is sitting up in the chair. Tanja reports that she loves the [employer] Sox and is happy that there are two games on today that can take her mind off of her situation. She is post op day 2 for repair of gastrocutaneous fistula. She has a wound vac in place and reports that she has pain but is otherwise doing ok. She states she was awake most of the night due to pain however feels it is better controlled this afternoon.She states she has home health services nursing and PT she will need increased services to manage the wound vac if she is discharge home with the vac in place. She states she has good support at home and will be able to return there with her family. A: 82 year old female admitted with a gastric enteric fistula. P: Tanja will discharge home when medically ready per MD. Anticipate patient will discharge home with increased home health services and follow up with her PCP. Tanja's family will transport her via private vehicle. CM will continue to provide support to patient, family and care team regarding discharge planning and disposition.
[2018-08-19 16:23] VITALS: BP 129/75; PULSE 81; RESP 20; TEMP 36.5; O2SAT 93
--- NOTE | 2018-08-19 16:42 | SATEXT_ITS ---
Assessment: Pt. with pressure ulcer noted. Ht 68 Wt. 62.7 kg. BMI is 21 kg/ m2 which is WNL but on the low end of normal for her age. PO intake is improving but has been poor to none for several days prior to today. Pt. does not like Ensure Plus which we supply but she does drink Boost from home. She is currently on a regular diet with full liquid consistency. Nutritional Diagnosis: Increased nutrient needs related to wound healing. Intervention: Will continue to encourage high calorie, high protein nutrition therapy including Boost supplements. Would recommend surgical soft nutrition therapy if pt. is able to tolerate increased consistency as it will provide more opportunity to improve nutrition. Will offer pt. Stephen supplements for wound healing as well. Monitoring and Evaluation: 1. Will monitor PO intake, tolerance to supplements including Stephen, and weight. 2. Will evaluate nutrition care plan ongoing and adjust as needed. Thank you for the consult.
[2018-08-19] MEDS: Pantoprazole 40 MG VIAL IVP (18:23)
[2018-08-19] MEDS: Insulin Aspart 300 UNITS/3 ML PEN SC (18:24)
[2018-08-19] MEDS: Gabapentin 300 MG CAP 600 MG PO (19:46)
--- NOTE | 2018-08-19 19:51 | NUR.NOTE ---
Nursing Note: This nurse has been asked to consult on the care of patient's pressure ulcer to her coccyx. Patient is an 82 year old woman that was admitted for revision of gastrocutaneous fistula. This nurse reviewed patient's history and physical. Patient has a history of myasthenia gravis, chronic pain and spinal compression fractures. She is currently able to turn and reposition independently. Assistance to be provided as needed. She is able to ambulate with 1 assist and has been encouraged to be more mobile. Please see her history and physical for further medical history. Patient is alert and oriented, and states she has had this pressure ulcer for 4 years. She states that for the past year she has been receiving wound care through [facility], and that it's now 3 times smaller than what it used to be. Patient's [id number] agrees with this. This nurse contact [facility] and spoke with ABRIL Goowdin, who has been seeing Tanja for wound care. She states patient's current wound treatment is as follows: Electrical stimulation therapy 3 times a week. Skin prep to periwound and epithelialized tissue. Apply calcium alginate rope to undermining area. Insert mepilex foam into space. Apply sacral foam island dressing. Change every 2 days. ABRIL Goodwin states that patient's wound has been noted to be healing, particularly in the past 2 weeks. Last wound measurements are as follows: 0.7 x 2.1 cm. Undermining @ 0100 1.5 cm and @ 0500 0.9 cm ABRIL Goodwin also reports a history of abscess to wound that was treated with incision and drainage. This nurse removed a mepilex with borders 25% covered with creamy white drainage from patient's coccyx. No foul odor detected. To coccyx, this nurse notes a large cavity, which is 90% lined with macerated epithelialized tissue. In the center of this cavity is noted to be a wound measuring 1 x 0.7 x 0.1 cm with 1.2 cm undermining @ [id number]. Wound base noted to be 100% smooth red muscle. Periwound skin is macerated. This nurse recommends cleansing wound with wound cleanser and gauze. This nurse also recommends applying skin prep to periwound skin and epithelialized tissue to protect from any maceration. This nurse recommends gently fluffing aquacel into undermining areas and filling rest of space in cavity with fluffed dry gauze. This nurse recommends covering with foam island dressing and changing every other day and PRN. This nurse also recommends nutritional labs and nutritional consult for wounds to assess nutritional status.
[2018-08-19 20:09] VITALS: BP 152/78; PULSE 82; RESP 18; TEMP 36.8; O2SAT 92
[2018-08-19] MEDS: Methadone 5 MG TAB 2.5 MG PO (22:11)
[2018-08-19] MEDS: Melatonin 3 MG TAB 6 MG PO (22:11)
[2018-08-20] VITALS (8 sets, daily range): BP systolic 121–154; BP diastolic 68–89; PULSE 66–79; RESP 17–22; TEMP 36.1–36.5; O2SAT 90–98
[2018-08-20] MEDS: Patch Removal 1 EACH TD (05:57)
[2018-08-20] MEDS: Methadone 5 MG TAB PO (08:43)
[2018-08-20] MEDS: Apixaban 2.5 MG TAB PO ×2 (08:44→19:44)
[2018-08-20] MEDS: HYDROmorphone 2 MG TAB PO ×2 (08:44→15:45)
[2018-08-20] MEDS: Gabapentin 300 MG CAP 600 MG PO ×2 (08:45→19:44)
[2018-08-20] MEDS: predniSONE 5 MG TAB 7.5 MG PO (08:46)
[2018-08-20] MEDS: Acetaminophen 325 MG TAB 650 MG PO ×2 (08:46→21:04)
--- NOTE | 2018-08-20 09:26 | W.PM.PROGNOT ---
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 Gastrocutaneous fistula?fistula resolved, continue antibiotics, wound VAC in place for abdominal wound 2. Myasthenia gravis?Po prednisone started 3. Pain management?restarted methadone will start p.o. Dilaudid. Encouraged participation with PT and OT along with position changes throughout the day. Also discussed use of the heating pad for her back pain. Needs to ambulate tid. 4. Diet: Tolerated Full Liquids 6. Activity?OT consult ordered for assist in ADLs secondary for deconditioning. Physical therapy to assist in mobilizing patient post surgery 7. Bowel regimen started. BM today. 8. Disposition?continue current care 9. Pressure ulcer: Wound consult placed. 10. MG- awaiting to see if Dr. Elizalde was able to get a hold of her Dr's down at [facility] regarding her Plasmaphoresis. Discussed the above assessment and plan with Dr. Quispe, whom agrees with the above. Subjective Patient reports: feels better; denies nausea and vomiting Interval history since last seen: Mrs. Herrera reports that she is feeling better today and that her pain has improved compared to yesterday. She states that she has been tolerating her full liquid diet. Denies nausea, vomiting or abdominal pain. She reports that she was able to sleep last night with her improved pain levels. She reports that she had a BM this morning. Exam Const General: cooperative, comfortable and no acute distress Orientation: alert and awake Resp Effort & Inspection: normal respiratory effort Auscultation: clear to auscultation bilaterally Cardio Rate: regular rate Rhythm: regular rhythm Heart Sounds: S1 normal, S2 normal, no gallops and no murmurs GI Inspection: normal to inspection and incision (incisions sites intact with skinafix glue no erythema or discharge. Wound vac also in place.) Palpation: soft, no guarding and nontender Auscultation: normal bowel sounds Objective Objective Clinical Data: Vital Signs Temperature 36.1 C L 08/20/18 07:30 Temperature Source Tympanic 08/20/18 07:30 Pulse 76 08/20/18 07:30 Pulse Rhythm Regular 08/19/18 19:30 Respiratory Rate 22 08/20/18 07:30 Respiratory Effort Non-Labored 08/19/18 19:30 Respiratory Depth Normal 08/19/18 19:30 Respiratory Pattern Normal 08/19/18 19:30 Blood Pressure 137/84 08/20/18 07:30 Pulse Oximetry 98 08/20/18 07:30 Oxygen Delivery Method Nasal Cannula 08/20/18 07:30 Oxygen Flow Rate 1 08/20/18 07:30 Pain Level 6 08/20/18 08:46 Comment 08/17/18 15:40 Intake & Output 08/19/18 08/19/18 08/20/18 11:59 23:59 11:59 Intake Total 1407.5 / 1407.5 1100 / 1100 300 / 300 Output Total 800 / 800 650 / 650 Balance 607.5 / 607.5 450 / 450 300 / 300 Intake: IV 1167.5 / 1167.5 1100 / 1100 50 / 50 Oral 240 / 240 250 / 250 Output: Urine 800 / 800 650 / 650 Other: Urine Color Yellow Yellow Urine Appearance Clear Clear Urine Odor Normal Comment Breif was dry at this time. Stool Occult Blood Negative Stool Size Small Stool Characteristics Soft Liquid Brown Green Voiding Methods Bedpan Bedside Commode Laboratory Results WBC 5.93 k/cumm (4.4-10.8) 08/19/18 07:10 RBC 3.09 m/cumm (4.00-5.20) L 08/19/18 07:10 Hgb 10.4 g/dL (12.0-15.5) L 08/19/18 07:10 Hct 33.2 % (36.0-46.0) L 08/19/18 07:10 MCV 107.4 fL (80-95) H 08/19/18 07:10 MCH 33.7 pg (27.0-33.0) H 08/19/18 07:10 MCHC 31.3 g/dL (32.0-36.0) L 08/19/18 07:10 RDW 12.5 % (11.7-14.6) 08/19/18 07:10 Plt Count 200 x1000/uL (130-400) 08/19/18 07:10 MPV 9.6 fL (8.0-11.0) 08/19/18 07:10 Immature Gran % 0.2 08/19/18 07:10 Neutrophils % 72.3 08/19/18 07:10 Lymphocytes % 12.6 08/19/18 07:10 Monocytes % 9.3 08/19/18 07:10 Eosinophils % 5.4 08/19/18 07:10 Basophils % 0.2 08/19/18 07:10 Absolute Neutrophils 4.29 k/cumm (1.2-6.7) 08/19/18 07:10 Absolute Lymphocytes 0.75 k/cumm (1.2-3.4) L 08/19/18 07:10 Absolute Monocytes 0.55 k/cumm (0.11-0.7) 08/19/18 07:10 Absolute Eosinophils 0.32 k/cumm (0.0-0.7) 08/19/18 07:10 Absolute Basophils 0.01 k/cumm (0.0-0.2) 08/19/18 07:10 ESR 101 MM/HR (0-30) H 08/16/18 16:10 PT 9.6 sec (9.3-10.8) 08/17/18 06:45 INR 1.0 (1.0-3.5) 08/17/18 06:45 APTT 26.3 sec (21.0-31.4) 08/17/18 06:45 Sodium 141 mmol/L (136-145) 08/19/18 07:10 Potassium 4.2 mmol/L (3.5-5.1) 08/19/18 07:10 Chloride 107 mmol/L (98-107) 08/19/18 07:10 Carbon Dioxide 25.3 mmol/L (21.0-32.0) 08/19/18 07:10 Anion Gap 8.7 mmol/L (3-11) 08/19/18 07:10 BUN 13 mg/dL (7-18) 08/19/18 07:10 Creatinine 1.38 mg/dL (0.55-1.02) H 08/19/18 07:10 Estimated GFR/1.73 m2 36.79 (mL/min/1.73m2) 08/19/18 07:10 Glucose 76 mg/dL (70-100) 08/19/18 07:10 Calcium 8.2 mg/dL (8.5-10.1) L 08/19/18 07:10 Magnesium 2.2 mg/dL (1.8-2.4) 08/18/18 06:55 Total Bilirubin 0.3 mg/dL (0.2-1.0) 08/16/18 16:10 AST 13 U/L (15-37) L 08/16/18 16:10 ALT 19 U/L (12-78) 08/16/18 16:10 Alkaline Phosphatase 77 U/L (46-116) 08/16/18 16:10 C-Reactive Protein 14.06 mg/dL (0.0-0.3) H 08/16/18 16:10 Total Protein 7.2 g/dL (6.4-8.2) 08/16/18 16:10 Albumin 3.1 g/dL (3.4-5.0) L 08/16/18 16:10
[2018-08-20] MEDS: Ondansetron 4 MG/2 ML VIAL IVP (10:12)
[2018-08-20] MEDS: Normal Saline Flush 10 ML SYR IVP ×4 (10:12→19:44)
--- NOTE | 2018-08-20 10:50 | PT.INTREAT ---
Date of service: 08/20/18 Time of Service: 10:06 PT Notes Date: 08/20/18 PRECAUTIONS: Standard precautions, wound vac abdomen SUBJECTIVE: Pt sitting on bedside commode, reports she is still having abdominal pain. Agreeable to PT session after encouragement. OBJECTIVE: General observation: wound vac abdomen, L UE IV PAIN: 3/10 pain in abdomen Bed Mobility/Transfers: Sit-stand: SBA with FWW Bed-chair: SBA with FWW Stand-sit: SBA Gait: SBA with FWW 45ftx2. Pt able to progress gait to hallway, cues provided to stay closer to FWW and stand erect. Pt with tendency to lean over into flexion due to back pain and postural weakness. Pt returned to room and up in chair after session completed. Therex: ankle pumps, long arc quads and hip flexion x 20 reps in chair. Balance: Static Sitting: normal Dynamic Sitting: normal Static Standing: fair Dynamic Standing: fair ASSESSMENT: Pt able to progress gait distance to hallway and progress therapeutic exercise, was able to perform bilateral hip flexion repetitions in chair with no increase in abdominal pain. Will continue to progress gait distance and mobility over the weekend, pts's plan is to return to home setting after hospitalization. PLAN: Progress strengthening Progress gait distance Progress transfers TREATMENT CODE/TIME: 27min TAx1 TPx1 10:05 Larissa Quintanilla PT
--- NOTE | 2018-08-20 11:14 | PDOC.CMPRO ---
- If Service Date Differs Date of service: 08/20/18 Time of Service: 11:14 Care Management Progress Note S/O: Tanja is lying in bed when CM visits this morning. She is drowsy this morning, despite reportedly sleeping well last evening. She denies pain however is difficult to converse with as she nods off and on while CM visits. Tanja is post op Day 3 for repair of a gastrocutaneous fistula. She has a wound vac in place and will need increased services to manage the wound vac if she will be discharging home with it. Tanja resides with her son and daughter in law and reportedly has good support at home. A: 82 year old female admitted with a gastric enteric fistula. P: Tanja will discharge home when medically ready per MD. Anticipate patient will discharge home with increased home health services and follow up with her PCP. Tanja's family will transport her via private vehicle. CM will continue to provide support to patient, family and care team regarding discharge planning and disposition.
--- NOTE | 2018-08-20 11:49 | OTTR_ITS ---
Date of service: 08/20/18 Time of Service: 11:00 Occupational Therapy Notes Occupational Therapy Inpatient Treatment Note Date: 08/20/18 SUBJECTIVE: Pt was sitting in chair when OT arrived. She states that she has already done a lot today and was finishing her breakfast but was agreeable to OT session. OBJECTIVE: PAIN:No c/o pain during OT session FUNCTIONAL MOBILITY Sit-stand: S, FWW Stand-sit: SBA, FWW Chair-Sink: SBA, FWW Pt required min verbal cues for safe transitioning with FWW to keep FWW close to body while taking steps. BATHING: Upper Body: Sitting in chair, (I) with mod (A) for back . Pt reports that she performs this at home using a long handled sponge. Lower Body: Sitting in chair (I) with decreased functional endurance. Pt states that she is tired when washing her feet. OT provided education on energy conservation techniques. Pt receptive to information and education demonstrating ideal awareness. DRESSING: Lower Extremity: Pt able to (I) take off socks. Needing min (A) for donning socks after bathing routine in chair. GROOMING: Standing at sink with FWW, S pt able to brush her teeth with (I) set up. Minimal verbal cues and education on safe body positioning, pt states that she can only stand one way due to her back pain. ASSESSMENT: Pt demonstrating increased (I) in dressing and bathing routine. She was receptive to education provided and required min-moderate verbal cues throughout. Pt would benefit from initiation of UE strengthening to increase (I ) in functional transitions. PLAN: Initiate UE strengthening program for increased (I) in functional mobility , education on energy conservation techniques for self care routine. TREATMENT CODES/TIME: Self care x 3, 11:00
--- NOTE | 2018-08-20 14:47 | PT.INNT ---
Date of service: 08/20/18 Time of Service: 14:47 PT Notes PHYSICAL THERAPY NOTE 08/20/18 Attempted to see patient for PT session, pt sitting up in chair, has been up in chair all day since this morning. States she is feeling stronger. Defers therapy session at this time as she is going to have wound vac dressing change. Pt encouarged to mobilize this evening with nursing. Will continue therapy interventions over weekend. Larissa Quintanilla PT
[2018-08-20] MEDS: Pantoprazole 40 MG VIAL IVP (18:47)
[2018-08-20] MEDS: Sennosides/Docusate Sodium TAB 1 TAB PO (19:44)
[2018-08-20] MEDS: Methadone 5 MG TAB 2.5 MG PO (21:37)
[2018-08-20] MEDS: Melatonin 3 MG TAB 6 MG PO (21:37)
[2018-08-21] VITALS (7 sets, daily range): BP systolic 101–149; BP diastolic 61–89; PULSE 69–82; RESP 14–20; TEMP 35.8–36.9; O2SAT 91–99
[2018-08-21] MEDS: Normal Saline Flush 10 ML SYR IVP ×6 (00:11→23:51)
[2018-08-21] MEDS: Methadone 5 MG TAB PO (08:16)
[2018-08-21] MEDS: Lidocaine 5% Patch 1 PATCH TP (08:16)
[2018-08-21] MEDS: Gabapentin 300 MG CAP 600 MG PO ×2 (08:17→20:08)
[2018-08-21] MEDS: Apixaban 2.5 MG TAB PO ×2 (08:17→20:09)
[2018-08-21] MEDS: predniSONE 5 MG TAB 7.5 MG PO (08:17)
--- NOTE | 2018-08-21 08:35 | PDOC.CMPRO ---
- If Service Date Differs Date of service: 08/21/18 Time of Service: 08:35 Care Management Progress Note S/O: Tanja is sitting in her recliner when CM visits this morning. She appears drowsy though reports that she slept well last night. She denies pain at this time. Tanja is post op Day 3 for repair of a gastrocutaneous fistula. She has a wound vac in place that is reportedly working well. She will need increased services at discharge to manage the wound vac if she will be discharging home with it. Tanja resides with her son and daughter in law and reportedly has good support at home. A: 82 year old female admitted with a gastric enteric fistula. P: Tanja will discharge home when medically ready per MD. Anticipate patient will discharge home on Thursday, 08/23 with increased home health services and follow up with her PCP. Tanja's family will transport her via private vehicle. CM will continue to provide support to patient, family and care team regarding discharge planning and disposition.
--- NOTE | 2018-08-21 11:00 | PT.INTREAT ---
Date of service: 08/21/18 Time of Service: 11:00 PT Notes 08/21/2018 Subjective: Patient noting she is doing a little better today although she notes she is fatigued. Objective: Patient agreeable to PT treatment. Transfers: Sit?stand time: SBA Stand?sit:
--- NOTE | 2018-08-21 11:06 | PT.INTREAT ---
Date of service: 08/21/18 Time of Service: 11:06 PT Notes 08/21/2018 SUBJECTIVE: Pt noting she is feeling a little better today although is quite fatigued. OBJECTIVE: Agreeable to PT treatment. Transfers: Sit-Stand: SBA Stand-Sit: SBA Gait: Device: FWW Weight bearing: Full Assist: SBA Distance: 60' Deviation: Forward flexed at the trunk Therex: Seated light UE/LE strengthening exercises as noted on flow sheet. ASSESSMENT: Tolerates PT well today. Seems to have less pain overall with gait. PLAN: Continue current POC progressing towards established goals. Treatment time: 20 minutes GLYNN Shipley, [employer]
--- NOTE | 2018-08-21 11:25 | W.PM.PROGNOT ---
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 Gastrocutaneous fistula?fistula resolved, continue antibiotics, wound VAC in place for abdominal wound. IV access to be restarted, if unable to restart, then will change to po antibiotics. 2. Myasthenia gravis?Po prednisone started. Anticipate plasmapheresis post-discharge. 3. Pain management?restarted methadone will start p.o. Dilaudid. Encouraged participation with PT and OT along with position changes throughout the day. Also discussed use of the heating pad for her back pain. Needs to ambulate tid. 4. Diet: Tolerating regular diet. 6. Activity?OT consult ordered for assist in ADLs secondary for deconditioning. Physical therapy to assist in mobilizing patient post surgery. 7. (+) BM - loose. Stool softener prn. 8. Disposition?continue current care. Will order wound vac for continued outpatient therapy post discharge. Patient notes that she is already followed by home health care. Anticipate d/c 08/23/18 with wound vac. 9. Pressure ulcer: Wound consult appreciated. Subjective Patient reports: no new complaints Interval history since last seen: Patient denies nausea, vomiting, or abdominal pain. She reports that she is trying to eat. She notes some slight difficulty eating which she attributes to her myasthenia gravis but was able to swallow faroese toast this morning. She states that she is overdue for plasmapheresis which she usually gets every 2 weeks but has not had for over 3 weeks now. She has this done in [place]. She states that she was told by her neurologist that she would be OK with this as long as she was able to swallow. (+) BM - loose, which she attributes to the antibiotics. She has been evaluated by wound care and has a dressing to her decubitus ulcer. Wound vac dressing reportedly changed yesterday. Exam Const General: cooperative and no acute distress Nutritional Appearance: average body habitus Resp Effort & Inspection: normal respiratory effort and able to speak in complete sentences Cardio Jugular venous pressure: no JVD GI Inspection: other (wound vac dressing intact in LUQ) Palpation: soft, no guarding and nontender Skin General skin exam: no jaundice Neuro General: alert and awake Speech: speech normal Objective Objective Clinical Data: Vital Signs Temperature 35.8 C L 08/21/18 07:35 Temperature Source Tympanic 08/21/18 07:35 Pulse 70 08/21/18 07:35 Pulse Rhythm Regular 08/21/18 08:20 Respiratory Rate 17 08/21/18 07:35 Respiratory Effort Non-Labored 08/21/18 08:20 Respiratory Depth Normal 08/21/18 08:20 Respiratory Pattern Normal 08/21/18 08:20 Blood Pressure 149/89 H 08/21/18 07:35 Pulse Oximetry 99 08/21/18 07:35 Oxygen Delivery Method Room Air 08/21/18 07:35 Oxygen Flow Rate 0 08/21/18 07:35 Pain Level 8 08/21/18 07:35 Comment 08/17/18 15:40 Intake & Output 08/20/18 08/20/18 08/21/18 11:59 23:59 11:59 Intake Total 350 / 350 1470 / 1470 250 / 250 Output Total 350 / 350 850 / 850 250 / 250 Balance 0 / 0 620 / 620 0 / 0 Intake: IV 100 / 100 1130 / 1130 100 / 100 Oral 250 / 250 340 / 340 150 / 150 Output: Urine 350 / 350 400 / 400 250 / 250 Stool 450 / 450 Other: Urine Color Yellow Yellow Urine Appearance Clear Clear Clear Urine Odor Normal Comment Breif was dry at this time. Stool Occult Blood Negative Stool Size Small Small Large Stool Characteristics Soft Liquid Liquid Liquid Black Brown Green Voiding Methods Bedside Commode Bedside Commode Bedside Commode Laboratory Results WBC 5.93 k/cumm (4.4-10.8) 08/19/18 07:10 RBC 3.09 m/cumm (4.00-5.20) L 08/19/18 07:10 Hgb 10.4 g/dL (12.0-15.5) L 08/19/18 07:10 Hct 33.2 % (36.0-46.0) L 08/19/18 07:10 MCV 107.4 fL (80-95) H 08/19/18 07:10 MCH 33.7 pg (27.0-33.0) H 08/19/18 07:10 MCHC 31.3 g/dL (32.0-36.0) L 08/19/18 07:10 RDW 12.5 % (11.7-14.6) 08/19/18 07:10 Plt Count 200 x1000/uL (130-400) 08/19/18 07:10 MPV 9.6 fL (8.0-11.0) 08/19/18 07:10 Immature Gran % 0.2 08/19/18 07:10 Neutrophils % 72.3 08/19/18 07:10 Lymphocytes % 12.6 08/19/18 07:10 Monocytes % 9.3 08/19/18 07:10 Eosinophils % 5.4 08/19/18 07:10 Basophils % 0.2 08/19/18 07:10 Absolute Neutrophils 4.29 k/cumm (1.2-6.7) 08/19/18 07:10 Absolute Lymphocytes 0.75 k/cumm (1.2-3.4) L 08/19/18 07:10 Absolute Monocytes 0.55 k/cumm (0.11-0.7) 08/19/18 07:10 Absolute Eosinophils 0.32 k/cumm (0.0-0.7) 08/19/18 07:10 Absolute Basophils 0.01 k/cumm (0.0-0.2) 08/19/18 07:10 ESR 101 MM/HR (0-30) H 08/16/18 16:10 PT 9.6 sec (9.3-10.8) 08/17/18 06:45 INR 1.0 (1.0-3.5) 08/17/18 06:45 APTT 26.3 sec (21.0-31.4) 08/17/18 06:45 Sodium 141 mmol/L (136-145) 08/19/18 07:10 Potassium 4.2 mmol/L (3.5-5.1) 08/19/18 07:10 Chloride 107 mmol/L (98-107) 08/19/18 07:10 Carbon Dioxide 25.3 mmol/L (21.0-32.0) 08/19/18 07:10 Anion Gap 8.7 mmol/L (3-11) 08/19/18 07:10 BUN 13 mg/dL (7-18) 08/19/18 07:10 Creatinine 1.38 mg/dL (0.55-1.02) H 08/19/18 07:10 Estimated GFR/1.73 m2 36.79 (mL/min/1.73m2) 08/19/18 07:10 Glucose 76 mg/dL (70-100) 08/19/18 07:10 Calcium 8.2 mg/dL (8.5-10.1) L 08/19/18 07:10 Magnesium 2.2 mg/dL (1.8-2.4) 08/18/18 06:55 Total Bilirubin 0.3 mg/dL (0.2-1.0) 08/16/18 16:10 AST 13 U/L (15-37) L 08/16/18 16:10 ALT 19 U/L (12-78) 08/16/18 16:10 Alkaline Phosphatase 77 U/L (46-116) 08/16/18 16:10 C-Reactive Protein 14.06 mg/dL (0.0-0.3) H 08/16/18 16:10 Total Protein 7.2 g/dL (6.4-8.2) 08/16/18 16:10 Albumin 3.1 g/dL (3.4-5.0) L 08/16/18 16:10
[2018-08-21] MEDS: HYDROmorphone 2 MG TAB PO ×2 (12:27→19:13)
[2018-08-21] MEDS: Melatonin 3 MG TAB 6 MG PO (21:18)
[2018-08-21] MEDS: Methadone 5 MG TAB 2.5 MG PO (21:23)
[2018-08-21] MEDS: Patch Removal 1 EACH TD (21:26)
[2018-08-22] MEDS: HYDROmorphone 2 MG TAB PO ×4 (01:15→16:38)
[2018-08-22] MEDS: Normal Saline Flush 10 ML SYR IVP ×3 (05:52→18:21)
[2018-08-22 08:20] VITALS: BP 134/76; PULSE 64; RESP 18; TEMP 36.6; O2SAT 96
[2018-08-22] MEDS: predniSONE 5 MG TAB 7.5 MG PO (08:20)
[2018-08-22] MEDS: Pantoprazole 40 MG TABCR PO (08:21)
[2018-08-22] MEDS: Apixaban 2.5 MG TAB PO ×2 (08:21→19:16)
[2018-08-22] MEDS: Methadone 5 MG TAB PO (08:21)
[2018-08-22] MEDS: Gabapentin 300 MG CAP 600 MG PO ×2 (08:21→19:16)
[2018-08-22] MEDS: Lidocaine 5% Patch 1 PATCH TP (08:22)
[2018-08-22 12:00] VITALS: BP 135/63; PULSE 72; RESP 18; TEMP 36.1; O2SAT 98
--- NOTE | 2018-08-22 13:09 | PDOC.CMPRO ---
- If Service Date Differs Date of service: 08/22/18 Time of Service: 13:09 Care Management Progress Note S/O: Tanja is sitting in her recliner finishing up her work with PT when CM visits today. She is engaged in conversation and looks to be feeling much better and more energetic than in past days. Tanja reports that she is feeling ok, though PT report that she was c/o pain at her incisional site. PT reports Tanja was ambulating better than yesterday and walked approximately 100'. Tanja reports that this is about the distance she will need to walk at her home. Tanja reports that she usually goes to [place] [facility] for plasmapheresis d/t MS. She reportedly goes every two weeks via RCT and it has now been 4 weeks since she last went. Discussion regarding arranging for Tanja to go upon discharge and then home, vs. home and then to [place]. CM will phone [facility] Dialysis unit on Thursday 08/23 regarding an appointment and if necessary, RCT. Patient reports that anytime around noon is when she normally goes. A: 82 year old female admitted with a gastric enteric fistula. P: Tanja will discharge home when medically ready per MD. Anticipate patient will discharge home on Thursday, 08/23 with increased home health services (wound vac maintenance) and follow up with her PCP. Tanja's family or a friend will transport her via private vehicle. CM will continue to provide support to patient, family and care team regarding discharge planning and disposition.
--- NOTE | 2018-08-22 13:12 | CMPROGNOTE_ITS ---
- If Service Date Differs Date of service: 08/22/18 Time of Service: 13:09 Care Management Progress Note S/O: Tanja is sitting in her recliner finishing up her work with PT when CM visits today. She is engaged in conversation and looks to be feeling much better and more energetic than in past days. Tanja reports that she is feeling ok, though PT report that she was c/o pain at her incisional site. PT reports Tanja was ambulating better than yesterday and walked approximately 100'. Tanja reports that this is about the distance she will need to walk at her home. Tanja reports that she usually goes to [place] [facility] for plasmapheresis d/t MS. She reportedly goes every two weeks via RCT and it has now been 4 weeks since she last went. Discussion regarding arranging for Tanja to go upon discharge and then home, vs. home and then to [place]. CM will phone [facility] Dialysis unit on Thursday 08/23 regarding an appointment and if necessary, RCT. Patient reports that anytime around noon is when she normally goes. A: 82 year old female admitted with a gastric enteric fistula. P: Tanja will discharge home when medically ready per MD. Anticipate patient will discharge home on Thursday, 08/23 with increased home health services (wound vac maintenance) and follow up with her PCP. Tanja's family or a friend will transport her via private vehicle. CM will continue to provide support to patient, family and care team regarding discharge planning and disposition.
--- NOTE | 2018-08-22 14:07 | PGE_ITS ---
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 Gastrocutaneous fistula?fistula resolved, continue Zosyn, wound VAC in place for abdominal wound. Consider d/c antibiotics at discharge home. 2. Myasthenia gravis?Po prednisone started. Anticipate plasmapheresis post- discharge. 3. Pain management?restarted methadone will start p.o. Dilaudid. Encouraged participation with PT and OT along with position changes throughout the day. Also discussed use of the heating pad for her back pain. Needs to ambulate tid. 4. Diet: Tolerating regular diet. 6. Activity?OT consult ordered for assist in ADLs secondary for deconditioning. Physical therapy to assist in mobilizing patient post surgery. 7. (+) BM. Constipation/diarrhea resolved. 8. Disposition?continue current care. Wound vac ordered for continued outpatient therapy post discharge. Patient notes that she is already followed by home health care. Anticipate d/c 08/23/18 with wound vac. 9. Pressure ulcer: Wound consult appreciated. Subjective Patient reports: no new complaints Interval history since last seen: Patient denies nausea or vomiting. She ate about half of her lunch and is eating a banana without problems. She notes a little discomfort at her surgical site but no internal pain. (+) BM - not loose as before. She is inquiring when she will be done with antibiotics. Exam Const General: cooperative and no acute distress Nutritional Appearance: average body habitus Resp Effort & Inspection: normal respiratory effort and able to speak in complete sentences Cardio Jugular venous pressure: no JVD GI Inspection: other (wound vac dressing intact in LUQ) Palpation: soft, no guarding and nontender Skin General skin exam: no jaundice Neuro General: alert and awake Speech: speech normal Objective Objective Clinical Data: Vital Signs Temperature 36.1 C L 08/22/18 12:00 Temperature Source Tympanic 08/22/18 12:00 Pulse 72 08/22/18 12:00 Pulse Rhythm Regular 08/22/18 08:20 Respiratory Rate 18 08/22/18 12:00 Respiratory Effort Non-Labored 08/22/18 08:20 Respiratory Depth Normal 08/22/18 08:20 Respiratory Pattern Normal 08/22/18 08:20 Blood Pressure 135/63 08/22/18 12:00 Pulse Oximetry 98 08/22/18 12:00 Oxygen Delivery Method Nasal Cannula 08/22/18 12:00 Oxygen Flow Rate 2.5 08/22/18 12:00 Pain Level 6 08/22/18 12:41 Comment 08/17/18 15:40 Intake & Output 08/21/18 08/22/18 08/22/18 23:59 11:59 23:59 Intake Total 250 / 250 340 / 340 0 / 0 Output Total 325 / 325 375 / 375 Balance -75 / -75 -35 / -35 0 / 0 Intake: IV 130 / 130 100 / 100 Oral 120 / 120 240 / 240 0 / 0 Output: Urine 325 / 325 375 / 375 Other: Urine Color Yellow Yellow Urine Appearance Clear Clear Urine Odor None Comment Small amount of urine mixed with liquid stool. Stool Size Small Small Stool Characteristics Liquid Liquid Brown Voiding Methods Bedside Commode Bedside Commode Laboratory Results WBC 5.93 k/cumm (4.4-10.8) 08/19/18 07:10 RBC 3.09 m/cumm (4.00-5.20) L 08/19/18 07:10 Hgb 10.4 g/dL (12.0-15.5) L 08/19/18 07:10 Hct 33.2 % (36.0-46.0) L 08/19/18 07:10 MCV 107.4 fL (80-95) H 08/19/18 07:10 MCH 33.7 pg (27.0-33.0) H 08/19/18 07:10 MCHC 31.3 g/dL (32.0-36.0) L 08/19/18 07:10 RDW 12.5 % (11.7-14.6) 08/19/18 07:10 Plt Count 200 x1000/uL (130-400) 08/19/18 07:10 MPV 9.6 fL (8.0-11.0) 08/19/18 07:10 Immature Gran % 0.2 08/19/18 07:10 Neutrophils % 72.3 08/19/18 07:10 Lymphocytes % 12.6 08/19/18 07:10 Monocytes % 9.3 08/19/18 07:10 Eosinophils % 5.4 08/19/18 07:10 Basophils % 0.2 08/19/18 07:10 Absolute Neutrophils 4.29 k/cumm (1.2-6.7) 08/19/18 07:10 Absolute Lymphocytes 0.75 k/cumm (1.2-3.4) L 08/19/18 07:10 Absolute Monocytes 0.55 k/cumm (0.11-0.7) 08/19/18 07:10 Absolute Eosinophils 0.32 k/cumm (0.0-0.7) 08/19/18 07:10 Absolute Basophils 0.01 k/cumm (0.0-0.2) 08/19/18 07:10 ESR 101 MM/HR (0-30) H 08/16/18 16:10 PT 9.6 sec (9.3-10.8) 08/17/18 06:45 INR 1.0 (1.0-3.5) 08/17/18 06:45 APTT 26.3 sec (21.0-31.4) 08/17/18 06:45 Sodium 141 mmol/L (136-145) 08/19/18 07:10 Potassium 4.2 mmol/L (3.5-5.1) 08/19/18 07:10 Chloride 107 mmol/L (98-107) 08/19/18 07:10 Carbon Dioxide 25.3 mmol/L (21.0-32.0) 08/19/18 07:10 Anion Gap 8.7 mmol/L (3-11) 08/19/18 07:10 BUN 13 mg/dL (7-18) 08/19/18 07:10 Creatinine 1.38 mg/dL (0.55-1.02) H 08/19/18 07:10 Estimated GFR/1.73 m2 36.79 (mL/min/1.73m2) 08/19/18 07:10 Glucose 76 mg/dL (70-100) 08/19/18 07:10 Calcium 8.2 mg/dL (8.5-10.1) L 08/19/18 07:10 Magnesium 2.2 mg/dL (1.8-2.4) 08/18/18 06:55 Total Bilirubin 0.3 mg/dL (0.2-1.0) 08/16/18 16:10 AST 13 U/L (15-37) L 08/16/18 16:10 ALT 19 U/L (12-78) 08/16/18 16:10 Alkaline Phosphatase 77 U/L (46-116) 08/16/18 16:10 C-Reactive Protein 14.06 mg/dL (0.0-0.3) H 08/16/18 16:10 Total Protein 7.2 g/dL (6.4-8.2) 08/16/18 16:10 Albumin 3.1 g/dL (3.4-5.0) L 08/16/18 16:10
[2018-08-22 16:39] VITALS: BP 160/85; PULSE 77; RESP 20; TEMP 36.6; O2SAT 98
[2018-08-22] MEDS: PIPERACILLIN/TAZO 3.375 GM in Normal Saline 50 ML IVPB ×2 (18:21→23:57)
[2018-08-22 19:20] VITALS: BP 145/75; PULSE 77; RESP 18; TEMP 36.4; O2SAT 99
[2018-08-22] MEDS: Methadone 5 MG TAB 2.5 MG PO (22:16)
[2018-08-22] MEDS: Melatonin 3 MG TAB 6 MG PO (22:17)
[2018-08-22] MEDS: Patch Removal 1 EACH TD (22:17)
[2018-08-23] VITALS (7 sets, daily range): BP systolic 131–150; BP diastolic 71–84; PULSE 70–96; RESP 16–18; TEMP 35.9–36.7; O2SAT 94–100
[2018-08-23] MEDS: Acetaminophen 325 MG TAB 650 MG PO ×3 (01:08→21:52)
[2018-08-23] MEDS: Normal Saline Flush 10 ML SYR IVP (06:07)
[2018-08-23] MEDS: PIPERACILLIN/TAZO 3.375 GM in Normal Saline 50 ML IVPB (06:08)
--- NOTE | 2018-08-23 07:55 | PGE_ITS ---
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 Gastrocutaneous fistula?fistula resolved, continue Zosyn, wound VAC in place for abdominal wound. Consider d/c antibiotics at discharge home. 2. Myasthenia gravis?Po prednisone started. Anticipate plasmapheresis post- discharge. 3. Pain management?restarted methadone will start p.o. Dilaudid. Encouraged continued participation with PT and OT along with position changes throughout the day. Also discussed use of the heating pad for her back pain. Needs to ambulate tid. 4. Diet: Tolerating regular diet. 6. Activity? Continue working with PT and OT to facilitate improved functional activity tolerance and independence with transfers and bed mobility. 7. (+) BM Per nsg notes; several small, liquid BMs yesterday. Consider d/c of antibiotics when d/c home. 8. Disposition?continue current care. Wound vac ordered for continued outpatient therapy post discharge. Patient notes that she is already followed by home health care. Anticipate d/c 08/23/18 with wound vac. 9. Pressure ulcer: Wound consult appreciated. Subjective Patient reports: diarrhea; denies nausea and vomiting Interval history since last seen: Reports currently feeling tired and states that she has been having lots of diarrhea. She believes that her diarrhea is due to the antibiotics and she is concerned about going home with having diarrhea because she is alone for a good portion of the day. She denies having any pain at this time. Denies nausea, vomiting or abodminal pain. Exam Const General: cooperative, comfortable and no acute distress Orientation: alert and awake Resp Effort & Inspection: normal respiratory effort Auscultation: clear to auscultation bilaterally, no rhonchi and no wheezes Cardio Rate: regular rate Rhythm: regular rhythm Heart Sounds: no gallops and no murmurs GI Palpation: soft and tender Auscultation: normal bowel sounds Objective Objective Clinical Data: Vital Signs Temperature 35.9 C L 08/23/18 04:47 Temperature Source Tympanic 08/23/18 04:47 Pulse 70 08/23/18 04:47 Pulse Rhythm Regular 08/22/18 19:20 Respiratory Rate 18 08/23/18 04:47 Respiratory Effort Non-Labored 08/22/18 19:20 Respiratory Depth Normal 08/22/18 19:20 Respiratory Pattern Normal 08/22/18 19:20 Blood Pressure 150/80 H 08/23/18 04:47 Pulse Oximetry 100 08/23/18 04:47 Oxygen Delivery Method Nasal Cannula 08/23/18 04:47 Oxygen Flow Rate 2 08/23/18 04:47 Pain Level 6 08/22/18 16:40 Comment 08/17/18 15:40 Intake & Output 08/22/18 08/22/18 08/23/18 11:59 23:59 11:59 Intake Total 410 / 410 180 / 180 100 / 100 Output Total 625 / 625 750 / 750 450 / 450 Balance -215 / -215 -570 / -570 -350 / -350 Intake: IV 170 / 170 120 / 120 100 / 100 Oral 240 / 240 60 / 60 Output: Urine 625 / 625 750 / 750 450 / 450 Other: Urine Color Yellow Yellow Yellow Urine Appearance Clear Clear Clear Urine Odor None Comment mixed with stool. Stool Size Small Stool Characteristics Liquid Brown Voiding Methods Bedside Commode Bedside Commode Bedside Commode Laboratory Results WBC 5.93 k/cumm (4.4-10.8) 08/19/18 07:10 RBC 3.09 m/cumm (4.00-5.20) L 08/19/18 07:10 Hgb 10.4 g/dL (12.0-15.5) L 08/19/18 07:10 Hct 33.2 % (36.0-46.0) L 08/19/18 07:10 MCV 107.4 fL (80-95) H 08/19/18 07:10 MCH 33.7 pg (27.0-33.0) H 08/19/18 07:10 MCHC 31.3 g/dL (32.0-36.0) L 08/19/18 07:10 RDW 12.5 % (11.7-14.6) 08/19/18 07:10 Plt Count 200 x1000/uL (130-400) 08/19/18 07:10 MPV 9.6 fL (8.0-11.0) 08/19/18 07:10 Immature Gran % 0.2 08/19/18 07:10 Neutrophils % 72.3 08/19/18 07:10 Lymphocytes % 12.6 08/19/18 07:10 Monocytes % 9.3 08/19/18 07:10 Eosinophils % 5.4 08/19/18 07:10 Basophils % 0.2 08/19/18 07:10 Absolute Neutrophils 4.29 k/cumm (1.2-6.7) 08/19/18 07:10 Absolute Lymphocytes 0.75 k/cumm (1.2-3.4) L 08/19/18 07:10 Absolute Monocytes 0.55 k/cumm (0.11-0.7) 08/19/18 07:10 Absolute Eosinophils 0.32 k/cumm (0.0-0.7) 08/19/18 07:10 Absolute Basophils 0.01 k/cumm (0.0-0.2) 08/19/18 07:10 ESR 101 MM/HR (0-30) H 08/16/18 16:10 PT 9.6 sec (9.3-10.8) 08/17/18 06:45 INR 1.0 (1.0-3.5) 08/17/18 06:45 APTT 26.3 sec (21.0-31.4) 08/17/18 06:45 Sodium 141 mmol/L (136-145) 08/19/18 07:10 Potassium 4.2 mmol/L (3.5-5.1) 08/19/18 07:10 Chloride 107 mmol/L (98-107) 08/19/18 07:10 Carbon Dioxide 25.3 mmol/L (21.0-32.0) 08/19/18 07:10 Anion Gap 8.7 mmol/L (3-11) 08/19/18 07:10 BUN 13 mg/dL (7-18) 08/19/18 07:10 Creatinine 1.38 mg/dL (0.55-1.02) H 08/19/18 07:10 Estimated GFR/1.73 m2 36.79 (mL/min/1.73m2) 08/19/18 07:10 Glucose 76 mg/dL (70-100) 08/19/18 07:10 Calcium 8.2 mg/dL (8.5-10.1) L 08/19/18 07:10 Magnesium 2.2 mg/dL (1.8-2.4) 08/18/18 06:55 Total Bilirubin 0.3 mg/dL (0.2-1.0) 08/16/18 16:10 AST 13 U/L (15-37) L 08/16/18 16:10 ALT 19 U/L (12-78) 08/16/18 16:10 Alkaline Phosphatase 77 U/L (46-116) 08/16/18 16:10 C-Reactive Protein 14.06 mg/dL (0.0-0.3) H 08/16/18 16:10 Total Protein 7.2 g/dL (6.4-8.2) 08/16/18 16:10 Albumin 3.1 g/dL (3.4-5.0) L 08/16/18 16:10
[2018-08-23] MEDS: predniSONE 5 MG TAB 7.5 MG PO (09:08)
[2018-08-23] MEDS: Lidocaine 5% Patch 1 PATCH TP (09:08)
[2018-08-23] MEDS: Pantoprazole 40 MG TABCR PO (09:09)
[2018-08-23] MEDS: Gabapentin 300 MG CAP 600 MG PO ×2 (09:09→19:36)
[2018-08-23] MEDS: Methadone 5 MG TAB PO (09:09)
[2018-08-23] MEDS: Apixaban 2.5 MG TAB PO ×2 (09:09→19:37)
--- NOTE | 2018-08-23 09:59 | OT.INTREAT ---
Date of service: 08/23/18 Time of Service: 09:40 Occupational Therapy Notes Occupational Therapy Inpatient Treatment Note Date: 08/23/18 SUBJECTIVE: Pt was sitting in chair when OT arrived all bathed, dressed and had performed grooming tasks. Pt states that she is going home today and states, I don't want to go home. Pt states that her (L) arm is quite bothersome today and that she is unsure what she can do but she is agreeable to OT session. OBJECTIVE: PAIN:Pt reports increased pain in abdomen but is unable to quantify on VAS. THEREX: Sitting in chair pt perform AROM of (B) shoulder flexion 10x, with yellow thera band (R) arm only she performed shoulder flexion, bicep curls, and external rotation. Pt also given pink foam cube for adult basic education manager strength to be performed throughout the day. Pt states that she uses two pound weights at home, OT suggested pt start with lower weights and more repetitions to start. ASSESSMENT: Pt is agreeable to OT session when OT arrives, however is not engaged in tasks that are being performed and not receptive to education being provided. Pt instructed to perform therex routine for upper body strengthening to increased (I) in functional ambulation and activity tolerance. Pt states that she is going home later today. OT recommendation d/c home when medically cleared. PLAN: Update and progress therapeutic exercise program for increased (I) in ADL routine. TREATMENT CODES/TIME: 15 min, TEx1
--- NOTE | 2018-08-23 10:07 | OTTR_ITS ---
Date of service: 08/23/18 Time of Service: 09:40 Occupational Therapy Notes Occupational Therapy Inpatient Treatment Note Date: 08/23/18 SUBJECTIVE: Pt was sitting in chair when OT arrived all bathed, dressed and had performed grooming tasks. Pt states that she is going home today and states, I don't want to go home. Pt states that her (L) arm is quite bothersome today and that she is unsure what she can do but she is agreeable to OT session. OBJECTIVE: PAIN:Pt reports increased pain in abdomen but is unable to quantify on VAS. THEREX: Sitting in chair pt perform AROM of (B) shoulder flexion 10x, with yellow thera band (R) arm only she performed shoulder flexion, bicep curls, and external rotation. Pt also given pink foam cube for group exercise instructor strength to be performed throughout the day. Pt states that she uses two pound weights at home , OT suggested pt start with lower weights and more repetitions to start. ASSESSMENT: Pt is agreeable to OT session when OT arrives, however is not engaged in tasks that are being performed and not receptive to education being provided. Pt instructed to perform therex routine for upper body strengthening to increased (I) in functional ambulation and activity tolerance. Pt states that she is going home later today. OT recommendation d/c home when medically cleared. PLAN: Update and progress therapeutic exercise program for increased (I) in ADL routine. TREATMENT CODES/TIME: 15 min, TEx1
[2018-08-23] MEDS: HYDROmorphone 2 MG TAB PO ×2 (10:38→17:15)
--- NOTE | 2018-08-23 12:42 | PT.INTREAT ---
Date of service: 08/23/18 Time of Service: 12:42 PT Notes Inpatient Physical Therapy Treatment Note Date: 08/23/18 SUBJECTIVE: Tanja states that her incision area is painful, as she just had a dressing change. OBJECTIVE: PAIN: Patient complained of pain in abdominal incision area. BED MOBILITY/TRANSFERS Sit-supine: I with HOB flat Sit-stand: S Stand-sit: S GAIT Assistive Device: FWW Weight bearing: Full Assist: S Distance: 120' Deviation: Cueing for upright posture throughout ASSESSMENT: Patient tolerated session with complaints of pain in the abdominal incision area. She was able to demonstrate independence with sit to supine transfer, and required supervision only with sit<> stand transfers and gait training. Patient required cueing to maintain upright posture throughout gait training with FWW support. PLAN: As per primary PT TREATMENT CODE/TIME: 15 minutes; TA
--- NOTE | 2018-08-23 13:53 | PT.INDS ---
Date of service: 08/23/18 Time of Service: 13:53 PT Notes Inpatient Physical Therapy Discharge Summary Date: 08/23/18 Dates of Service: 08/18/18-08/23/18 SUBJECTIVE: NT OBJECTIVE: 08/18/18-08/23/18 Bed Mobility/Transfers: Sit-supine: independent Supine-sit: independent Sit-stand: supervision Stand-sit: supervision Bed-chair: SBA with FWW Chair-bbed: SBA with FWW Gait: supervision with FWW 120ft Balance: Static Sitting: normal Dynamic Sitting: normal Static Standing: fair Dynamic Standing: fair Assessment: . Pt is an 82yr old female s/p laparoscopy and repair, gastrocutaneous fistula 08/17/[address] Elizalde in setting of osteoporosis, myasthenia gravis, decubitis ulcer sacrum, macrocytic anemia, congestive heart failure, atrial fibrillation Patient was seen for 7 PT visits. Progressed from minAx2 bed transfers to indepedent, from SBA standing transfers to supervision, from SBA gait with FWW 25ftx2 to supervision gait with FWW 120ft. Pt is discharged to home setting today, recommend home PT to assist to independent level of function. Goals: Goals X1 week 1. Supine-Sit supervision 2. Sit-Supine supervision 3. Sit-Stand supervision with FWW 4. Stand-Sit supervision 5. Bed-Chair supervision with FWW 6. Chair-Bed supervision with FWW 7. Gait supervision with FWW [id number] Pt met goals # 3, 4, 7 - home PT recommended to meet remaining goals DISCHARGE RECOMMENDATIONS: Home with family, home PT G Codes in the area mobility of walking and moving around: projected status GP [id number]. Discharge status (if discharging) GP [id number] KNENY Quintanilla PT
--- NOTE | 2018-08-23 13:58 | INDS_ITS ---
Date of service: 08/23/18 Time of Service: 13:53 PT Notes Inpatient Physical Therapy Discharge Summary Date: 08/23/18 Dates of Service: 08/18/18-08/23/18 SUBJECTIVE: NT OBJECTIVE: 08/18/18-08/23/18 Bed Mobility/Transfers: Sit-supine: independent Supine-sit: independent Sit-stand: supervision Stand-sit: supervision Bed-chair: SBA with FWW Chair-bbed: SBA with FWW Gait: supervision with FWW 120ft Balance: Static Sitting: normal Dynamic Sitting: normal Static Standing: fair Dynamic Standing: fair Assessment: . Pt is an 82yr old female s/p laparoscopy and repair, gastrocutaneous fistula 08/17/[address] Elizalde in setting of osteoporosis, myasthenia gravis, decubitis ulcer sacrum, macrocytic anemia, congestive heart failure, atrial fibrillation Patient was seen for 7 PT visits. Progressed from minAx2 bed transfers to indepedent, from SBA standing transfers to supervision, from SBA gait with FWW 25ftx2 to supervision gait with FWW 120ft. Pt is discharged to home setting today, recommend home PT to assist to independent level of function. Goals: Goals X1 week 1. Supine-Sit supervision 2. Sit-Supine supervision 3. Sit-Stand supervision with FWW 4. Stand-Sit supervision 5. Bed-Chair supervision with FWW 6. Chair-Bed supervision with FWW 7. Gait supervision with FWW [id number] Pt met goals # 3, 4, 7 - home PT recommended to meet remaining goals DISCHARGE RECOMMENDATIONS: Home with family, home PT G Codes in the area mobility of walking and moving around: projected status GP [id number]. Discharge status (if discharging) GP [id number] KENNY Quintanilla PT
--- NOTE | 2018-08-23 15:07 | W.PM.DS.N ---
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 She underwent surgery on 08/17/18 and the fistula ressected. her fascia was closed and a wound vac was placed. Patient had an NG tube placed for decompression. The NG tube was removed on 08/19 and she was started on clear liquids. her diet was advanced to full liquids on and then to a soft diet by Thursday. She started PT and OT for strength. She was on antibiotics for 6 days and then they were stopped. Patient was tolerating a diet and her wound looked clean. There were no signs of infection. On ThursdayAugust 23 the patient was discharged home with her wound vac. Home health was asked to come and assist the patient with dressing changes. Home Meds and New Rx's Prescriptions: New pantoprazole 40 mg Tablet,Delayed Release (Dr/Ec) 40 mg PO DAILY@0730 Qty: 0 RF: 1 Continue sennosides [senna] 8.6 mg tablet 8.6 mg PO BID PRNRF: 0 hydromorphone [Dilaudid] 2 MG tablet 2 mg PO Q6H PRN MDD 3mg Q3H PRNQty: 0 RF: 0 multivitamin [Multiple Vitamins] Tablet 1 tab PO DAILY RF: 0 prednisone 10 MG tablet 7.5 mg PO DAILY RF: 0 melatonin 3 MG tablet 6 mg PO HS RF: 0 gabapentin 300 MG capsule 600 mg PO BID RF: 0 folic acid 0.8 MG capsule 0.8 mg PO DAILY RF: 0 apixaban [Eliquis] 2.5 MG tablet 2.5 mg PO BID RF: 0 ergocalciferol (vitamin D2) [Vitamin D2] 50,000 UNITS capsule 50,000 units PO .QOWEEK RF: 0 cyanocobalamin (vitamin B-12) 1,000 MCG/ML solution 1 ea IM .QMONTH RF: 0 bisacodyl 10 MG suppository 1 ea CA PRN PRNRF: 0 docusate sodium [Colace] 100 MG capsule 100 mg PO DAILY PRN (Reason: Constipation) Qty: 14 RF: 0 methadone 5 mg Tablet 2.5 mg PO HS RF: 0 ferrous sulfate 325 MG tablet 325 mg PO DAILY RF: 0 methadone [Dolophine] 5 MG tablet 5 mg PO DAILY RF: 0 acetaminophen [Tylenol] 325 mg Tablet 650 mg PO Q4H PRN PRNQty: 30 RF: 0 Discharge Instructions Instructions: Acute Wound Care (DC), Negative Pressure Wound Therapy (DC) Additional Instructions: General Surgery Discharge Information Discharge Activities: 1. Continue incentive spirometry 10-15 times~every hour while awake and as tolerated 2. Ambulate at least 3 times a day for 15 minutes and as tolerated 3. Out of bed at least 3 times a day for 2 hours at a time, and as tolerated 4. You can shower, pat wounds dry, do not rub Restrictions: 1. No heavy lifting over 20 pounds for 4 weeks, no strenuous bending or twisting. 2. No swimming, baths, or immersion of wounds in water for 4 weeks. Therapies: 1.Home Health care referral for wound vac and sacral pressure ulcer Follow-up appointments: Dr. Elizalde in 2 weeks on September 13 at 1pm. His office is located in the upper level of the [employer] Building across the street from the hospital.~ The office number is [phone]. For any questions or to make, confirm appointments. If you are having fever, chills, nausea, vomiting, pain not controlled with pain medications, bleeding or drainage from your wounds. Call [phone] or [phone] (after hours). I understand the above instructions and have no questions. Signature of Patient or Responsible Adult Escort Date/Time Name of Responsible Adult Escort Sugnature of Nurse Date/Time You have an appointment in [place] at the Dialysis clinic tomorrow (Thursday) August 24 at noon for Plasmaphoresis. Stand Alone Forms: Nursing Discharge Form Referrals: Maribell Choi [Primary Care Provider] - 09/02/18 11:15 am ( ) Activity:: Activity as Tolerated Equipment/Supplies:: wound vac Diet:: As Tolerated DS: Summary Time Spent with Patient Greater than 30 minutes DS: Data Vitals/I&O Vitals and I&O: Vital Signs Temperature 97.0 F L 08/23/18 11:45 Temperature Source Tympanic 08/23/18 11:45 Pulse 96 H 08/23/18 11:45 Pulse Rhythm Regular 08/23/18 09:00 Respiratory Rate 18 08/23/18 11:45 Respiratory Effort Non-Labored 08/23/18 09:00 Respiratory Depth Shallow 08/23/18 09:00 Respiratory Pattern Normal 08/23/18 09:00 Blood Pressure 140/79 08/23/18 11:45 Pulse Oximetry 94 L 08/23/18 11:45 Oxygen Delivery Method Room Air 08/23/18 11:45 Oxygen Flow Rate 0 08/23/18 11:45 Pain Level 8 08/23/18 13:27 Comment 08/17/18 15:40 Intake & Output 08/22/18 08/23/18 08/23/18 23:59 11:59 23:59 Intake Total 180 / 180 320 / 320 250 / 250 Output Total 750 / 750 750 / 750 Balance -570 / -570 -430 / -430 250 / 250 Intake: IV 120 / 120 100 / 100 Oral 60 / 60 220 / 220 250 / 250 Output: Urine 750 / 750 750 / 750 Other: Urine Color Yellow Pale Yellow Yellow Urine Appearance Clear Clear Clear Urine Odor None Comment mixed with stool. Stool Size Small Moderate Large Stool Characteristics Liquid Liquid Liquid Brown Green Green Voiding Methods Bedside Commode Bedside Commode Bedside Commode Pending studies at discharge: Bed Mobility Treatment using Assistive, Adaptive, Supportive or Protective Equipment (07/30/17) Gait Training/Functional Ambulation Treatment using Assistive, Adaptive, Supportive or Protective Equipment (07/30/17) Introduction of Other Therapeutic Substance into Respiratory Tract, Via Natural or Artificial Opening (07/30/17) Monitoring of Cardiac Electrical Activity, External Approach (07/30/17) Removal of Feeding Device from Stomach, External Approach (07/30/17) Transfer Training Treatment using Assistive, Adaptive, Supportive or Protective Equipment (07/30/17) Ultrasonography of Right and Left Heart (07/30/17) WBC 5.93 k/cumm (4.4-10.8) 08/19/18 07:10 RBC 3.09 m/cumm (4.00-5.20) L 08/19/18 07:10 Hgb 10.4 g/dL (12.0-15.5) L 08/19/18 07:10 Hct 33.2 % (36.0-46.0) L 08/19/18 07:10 MCV 107.4 fL (80-95) H 08/19/18 07:10 MCH 33.7 pg (27.0-33.0) H 08/19/18 07:10 MCHC 31.3 g/dL (32.0-36.0) L 08/19/18 07:10 RDW 12.5 % (11.7-14.6) 08/19/18 07:10 Plt Count 200 x1000/uL (130-400) 08/19/18 07:10 MPV 9.6 fL (8.0-11.0) 08/19/18 07:10 Immature Gran % 0.2 08/19/18 07:10 Neutrophils % 72.3 08/19/18 07:10 Lymphocytes % 12.6 08/19/18 07:10 Monocytes % 9.3 08/19/18 07:10 Eosinophils % 5.4 08/19/18 07:10 Basophils % 0.2 08/19/18 07:10 Absolute Neutrophils 4.29 k/cumm (1.2-6.7) 08/19/18 07:10 Absolute Lymphocytes 0.75 k/cumm (1.2-3.4) L 08/19/18 07:10 Absolute Monocytes 0.55 k/cumm (0.11-0.7) 08/19/18 07:10 Absolute Eosinophils 0.32 k/cumm (0.0-0.7) 08/19/18 07:10 Absolute Basophils 0.01 k/cumm (0.0-0.2) 08/19/18 07:10 ESR 101 MM/HR (0-30) H 08/16/18 16:10 PT 9.6 sec (9.3-10.8) 08/17/18 06:45 INR 1.0 (1.0-3.5) 08/17/18 06:45 APTT 26.3 sec (21.0-31.4) 08/17/18 06:45 Sodium 141 mmol/L (136-145) 08/19/18 07:10 Potassium 4.2 mmol/L (3.5-5.1) 08/19/18 07:10 Chloride 107 mmol/L (98-107) 08/19/18 07:10 Carbon Dioxide 25.3 mmol/L (21.0-32.0) 08/19/18 07:10 Anion Gap 8.7 mmol/L (3-11) 08/19/18 07:10 BUN 13 mg/dL (7-18) 08/19/18 07:10 Creatinine 1.38 mg/dL (0.55-1.02) H 08/19/18 07:10 Estimated GFR/1.73 m2 36.79 (mL/min/1.73m2) 08/19/18 07:10 Glucose 76 mg/dL (70-100) 08/19/18 07:10 Calcium 8.2 mg/dL (8.5-10.1) L 08/19/18 07:10 Magnesium 2.2 mg/dL (1.8-2.4) 08/18/18 06:55 Total Bilirubin 0.3 mg/dL (0.2-1.0) 08/16/18 16:10 AST 13 U/L (15-37) L 08/16/18 16:10 ALT 19 U/L (12-78) 08/16/18 16:10 Alkaline Phosphatase 77 U/L (46-116) 08/16/18 16:10 C-Reactive Protein 14.06 mg/dL (0.0-0.3) H 08/16/18 16:10 Total Protein 7.2 g/dL (6.4-8.2) 08/16/18 16:10 Albumin 3.1 g/dL (3.4-5.0) L 08/16/18 16:10
--- NOTE | 2018-08-23 15:21 | DSE_ITS ---
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 She underwent surgery on 08/17/18 and the fistula ressected. her fascia was closed and a wound vac was placed. Patient had an NG tube placed for decompression. The NG tube was removed on 08/19 and she was started on clear liquids. her diet was advanced to full liquids on and then to a soft diet by Thursday. She started PT and OT for strength. She was on antibiotics for 6 days and then they were stopped. Patient was tolerating a diet and her wound looked clean. There were no signs of infection. On ThursdayAugust 23 the patient was discharged home with her wound vac. Home health was asked to come and assist the patient with dressing changes. Home Meds and New Rx's Prescriptions: New pantoprazole 40 mg Tablet,Delayed Release (Dr/Ec) 40 mg PO DAILY@0730 Qty: 0 RF: 1 Continue sennosides [senna] 8.6 mg tablet 8.6 mg PO BID PRNRF: 0 hydromorphone [Dilaudid] 2 MG tablet 2 mg PO Q6H PRN MDD 3mg Q3H PRNQty: 0 RF: 0 multivitamin [Multiple Vitamins] Tablet 1 tab PO DAILY RF: 0 prednisone 10 MG tablet 7.5 mg PO DAILY RF: 0 melatonin 3 MG tablet 6 mg PO HS RF: 0 gabapentin 300 MG capsule 600 mg PO BID RF: 0 folic acid 0.8 MG capsule 0.8 mg PO DAILY RF: 0 apixaban [Eliquis] 2.5 MG tablet 2.5 mg PO BID RF: 0 ergocalciferol (vitamin D2) [Vitamin D2] 50,000 UNITS capsule 50,000 units PO .QOWEEK RF: 0 cyanocobalamin (vitamin B-12) 1,000 MCG/ML solution 1 ea IM .QMONTH RF: 0 bisacodyl 10 MG suppository 1 ea CO PRN PRNRF: 0 docusate sodium [Colace] 100 MG capsule 100 mg PO DAILY PRN (Reason: Constipation) Qty: 14 RF: 0 methadone 5 mg Tablet 2.5 mg PO HS RF: 0 ferrous sulfate 325 MG tablet 325 mg PO DAILY RF: 0 methadone [Dolophine] 5 MG tablet 5 mg PO DAILY RF: 0 acetaminophen [Tylenol] 325 mg Tablet 650 mg PO Q4H PRN PRNQty: 30 RF: 0 Discharge Instructions Instructions: Acute Wound Care (DC), Negative Pressure Wound Therapy (DC) Additional Instructions: General Surgery Discharge Information Discharge Activities: 1. Continue incentive spirometry 10-15 times~every hour while awake and as tolerated 2. Ambulate at least 3 times a day for 15 minutes and as tolerated 3. Out of bed at least 3 times a day for 2 hours at a time, and as tolerated 4. You can shower, pat wounds dry, do not rub Restrictions: 1. No heavy lifting over 20 pounds for 4 weeks, no strenuous bending or twisting. 2. No swimming, baths, or immersion of wounds in water for 4 weeks. Therapies: 1.Home Health care referral for wound vac and sacral pressure ulcer Follow-up appointments: Dr. Elizalde in 2 weeks on September 13 at 1pm. His office is located in the upper level of the [employer] Building across the street from the hospital.~ The office number is [phone]. For any questions or to make, confirm appointments. If you are having fever, chills, nausea, vomiting, pain not controlled with pain medications, bleeding or drainage from your wounds. Call [phone] or [phone] (after hours). I understand the above instructions and have no questions. _ Signature of Patient or Responsible Adult Escort Date/Time _ Name of Responsible Adult Escort _ Sugnature of Nurse Date/Time You have an appointment in [place] at the Dialysis clinic tomorrow (Thursday) August 24 at noon for Plasmaphoresis. Stand Alone Forms: Nursing Discharge Form Referrals: Maribell Choi [Primary Care Provider] - 09/02/18 11:15 am ( ) Activity:: Activity as Tolerated Equipment/Supplies:: wound vac Diet:: As Tolerated DS: Summary Time Spent with Patient Greater than 30 minutes DS: Data Vitals/I&O Vitals and I&O: Vital Signs Temperature 97.0 F L 08/23/18 11:45 Temperature Source Tympanic 08/23/18 11:45 Pulse 96 H 08/23/18 11:45 Pulse Rhythm Regular 08/23/18 09:00 Respiratory Rate 18 08/23/18 11:45 Respiratory Effort Non-Labored 08/23/18 09:00 Respiratory Depth Shallow 08/23/18 09:00 Respiratory Pattern Normal 08/23/18 09:00 Blood Pressure 140/79 08/23/18 11:45 Pulse Oximetry 94 L 08/23/18 11:45 Oxygen Delivery Method Room Air 08/23/18 11:45 Oxygen Flow Rate 0 08/23/18 11:45 Pain Level 8 08/23/18 13:27 Comment 08/17/18 15:40 Intake & Output 08/22/18 08/23/18 08/23/18 23:59 11:59 23:59 Intake Total 180 / 180 320 / 320 250 / 250 Output Total 750 / 750 750 / 750 Balance -570 / -570 -430 / -430 250 / 250 Intake: IV 120 / 120 100 / 100 Oral 60 / 60 220 / 220 250 / 250 Output: Urine 750 / 750 750 / 750 Other: Urine Color Yellow Pale Yellow Yellow Urine Appearance Clear Clear Clear Urine Odor None Comment mixed with stool. Stool Size Small Moderate Large Stool Characteristics Liquid Liquid Liquid Brown Green Green Voiding Methods Bedside Commode Bedside Commode Bedside Commode Pending studies at discharge: Bed Mobility Treatment using Assistive, Adaptive, Supportive or Protective Equipment (07/30/17) Gait Training/Functional Ambulation Treatment using Assistive, Adaptive, Supportive or Protective Equipment (07/30/17) Introduction of Other Therapeutic Substance into Respiratory Tract, Via Natural or Artificial Opening (07/30/17) Monitoring of Cardiac Electrical Activity, External Approach (07/30/17) Removal of Feeding Device from Stomach, External Approach (07/30/17) Transfer Training Treatment using Assistive, Adaptive, Supportive or Protective Equipment (07/30/17) Ultrasonography of Right and Left Heart (07/30/17) WBC 5.93 k/cumm (4.4-10.8) 08/19/18 07:10 RBC 3.09 m/cumm (4.00-5.20) L 08/19/18 07:10 Hgb 10.4 g/dL (12.0-15.5) L 08/19/18 07:10 Hct 33.2 % (36.0-46.0) L 08/19/18 07:10 MCV 107.4 fL (80-95) H 08/19/18 07:10 MCH 33.7 pg (27.0-33.0) H 08/19/18 07:10 MCHC 31.3 g/dL (32.0-36.0) L 08/19/18 07:10 RDW 12.5 % (11.7-14.6) 08/19/18 07:10 Plt Count 200 x1000/uL (130-400) 08/19/18 07:10 MPV 9.6 fL (8.0-11.0) 08/19/18 07:10 Immature Gran % 0.2 08/19/18 07:10 Neutrophils % 72.3 08/19/18 07:10 Lymphocytes % 12.6 08/19/18 07:10 Monocytes % 9.3 08/19/18 07:10 Eosinophils % 5.4 08/19/18 07:10 Basophils % 0.2 08/19/18 07:10 Absolute Neutrophils 4.29 k/cumm (1.2-6.7) 08/19/18 07:10 Absolute Lymphocytes 0.75 k/cumm (1.2-3.4) L 08/19/18 07:10 Absolute Monocytes 0.55 k/cumm (0.11-0.7) 08/19/18 07:10 Absolute Eosinophils 0.32 k/cumm (0.0-0.7) 08/19/18 07:10 Absolute Basophils 0.01 k/cumm (0.0-0.2) 08/19/18 07:10 ESR 101 MM/HR (0-30) H 08/16/18 16:10 PT 9.6 sec (9.3-10.8) 08/17/18 06:45 INR 1.0 (1.0-3.5) 08/17/18 06:45 APTT 26.3 sec (21.0-31.4) 08/17/18 06:45 Sodium 141 mmol/L (136-145) 08/19/18 07:10 Potassium 4.2 mmol/L (3.5-5.1) 08/19/18 07:10 Chloride 107 mmol/L (98-107) 08/19/18 07:10 Carbon Dioxide 25.3 mmol/L (21.0-32.0) 08/19/18 07:10 Anion Gap 8.7 mmol/L (3-11) 08/19/18 07:10 BUN 13 mg/dL (7-18) 08/19/18 07:10 Creatinine 1.38 mg/dL (0.55-1.02) H 08/19/18 07:10 Estimated GFR/1.73 m2 36.79 (mL/min/1.73m2) 08/19/18 07:10 Glucose 76 mg/dL (70-100) 08/19/18 07:10 Calcium 8.2 mg/dL (8.5-10.1) L 08/19/18 07:10 Magnesium 2.2 mg/dL (1.8-2.4) 08/18/18 06:55 Total Bilirubin 0.3 mg/dL (0.2-1.0) 08/16/18 16:10 AST 13 U/L (15-37) L 08/16/18 16:10 ALT 19 U/L (12-78) 08/16/18 16:10 Alkaline Phosphatase 77 U/L (46-116) 08/16/18 16:10 C-Reactive Protein 14.06 mg/dL (0.0-0.3) H 08/16/18 16:10 Total Protein 7.2 g/dL (6.4-8.2) 08/16/18 16:10 Albumin 3.1 g/dL (3.4-5.0) L 08/16/18 16:10
--- NOTE | 2018-08-23 15:21 | PDOC.HHF2F ---
1. Encounter Date and Reason I certify that SHELLIE BYRD was seen by Brenda Quispe on 08/23/18 and that I had a [id number] encounter with this patient that meets the physician face to face encounter requirements. 2. Clinical Findings Supporting Skilled Need and Homebound Status I certify that home health services are medically necessary, include either intermittent alf and/or physical/speech therapy, and that this patient is homebound in that absences from the home require considerable and taxing effort and are infrequent or of short duration, or are attributable to the need to receive medical care. [X] (a) Attached documentation from encounter provides clinical findings supporting skilled need and homebound status (including what assistance patient requires to leave the home). The encounter with the patient was in whole, or in part, for the following medical condition, which is the primary reason for home health care: GASTRIC ENTERIC FISTULA Jail: Patient has an open wound and has a wound vac that needs to be changed MWF. Also has a chronic pressure ulcer that needs dressing changes as before her hospitalization Physical Therapy: Speech Therapy: Homebound: Patient is homebound except for DrSantino Visits 3. Certification and Authentication I certify that I composed the above information based on my clinical judgement relating to this patient's medical condition and, if applicable, clinical findings communicated to me by the NPP or inpatient physician who performed the Home Health Referral. All further orders will be obtained through (Community Based Physician - PCP)
--- NOTE | 2018-08-23 17:10 | PDOC.CMDIS ---
- If Service Date Differs Date of service: 08/23/18 Time of Service: 17:10 LACE Index Scoring Tool - Questions: Length of Stay (in days): 7 - 13 Acuity (Admit via E.D.?): Yes Comorbidities: Congestive Heart Failure E.D. Visits: 1 - Answers: Total Score: 11 Risk of Readmission: High Risk Care Management Discharge Reason for Hospitalization: Gastric enteric fistula. Discharge Plan: Tanja will discharge home when medically ready per MD. Anticipate patient will discharge home with increased HH services (wound vac, wound dressing changes) and follow up with her PCP. Tanja will transport via private vehicle with her family. Patient/Family Education Needs: Discharge education, any limitations, and follow up plan of care. Ask Me Three discussion. Tanja has an appointment at [facility] dialysis at 12:00pm on 08/24 and will be picked up at her home by [facility] at 10:00am. [facility] will return her to her home following fruit picker machine operator at [facility] at 3:30pm. Services Needed at Discharge: Home Health Care Services
--- NOTE | 2018-08-23 17:14 | CMDISCH_ITS ---
- If Service Date Differs Date of service: 08/23/18 Time of Service: 17:10 LACE Index Scoring Tool - Questions: Length of Stay (in days): 7 - 13 Acuity (Admit via E.D.?): Yes Comorbidities: Congestive Heart Failure E.D. Visits: 1 - Answers: Total Score: 11 Risk of Readmission: High Risk Care Management Discharge Reason for Hospitalization: Gastric enteric fistula. Discharge Plan: Tanja will discharge home when medically ready per MD. Anticipate patient will discharge home with increased HH services (wound vac, wound dressing changes) and follow up with her PCP. Tanja will transport via private vehicle with her family. Patient/Family Education Needs: Discharge education, any limitations, and follow up plan of care. Ask Me Three discussion. Tanja has an appointment at [facility] dialysis at 12:00pm on 08/24 and will be picked up at her home by [facility] at 10: 00am. [facility] will return her to her home following machine operator picker at [facility] at 3:30pm. Services Needed at Discharge: Home Health Care Services
[2018-08-23] MEDS: Patch Removal 1 EACH TD (19:40)
[2018-08-23] MEDS: Melatonin 3 MG TAB 6 MG PO (21:53)
[2018-08-23] MEDS: Methadone 5 MG TAB 2.5 MG PO (21:53)
[2018-08-24 01:55] VITALS: BP 142/67; PULSE 84; RESP 19; TEMP 36.5; O2SAT 93
[2018-08-24] MEDS: Acetaminophen 325 MG TAB 650 MG PO (06:36)
[2018-08-24] MEDS: Pantoprazole 40 MG TABCR PO (06:36)
[2018-08-24 07:30] VITALS: BP 144/75; PULSE 80; RESP 18; TEMP 36.7; O2SAT 92
--- NOTE | 2018-08-24 08:03 | OT.INDS ---
Date of service: 08/24/18 Time of Service: 08:03 Occupational Therapy Notes Occupational Therapy Inpatient Discharge Summary Date: 08/24/18 Dates of Service: 08/19/18-08/24/18 SUBJECTIVE: Not tested. OBJECTIVE: Dates of Service: 08/19/18-08/24/18 FUNCTIONAL MOBILITY/ADLS: Sit-stand: S, FWW Stand-sit: SBA, FWW BATHING Upper Body: Progressed from Mod (A) to (I) sitting in bedside chair Lower Body: Progressed from Mod (A) to (I) sitting in bedside chair DRESSING Upper body: (I) sitting in bedside chair Lower Body: (I) able to don and doff socks and pants GROOMING: Pt was able to stand at sink and (I) brush her teeth and comb her hair. Pt prefers sitting in bedside chair to perform grooming routine which she can perform (I). EATING: (I) ASSESSMENT: Pt is a 82 year old female referred for OT services for low activity tolerance and deconditioning. Pt was seen for 3 OT sessions. Pt, when engaged in OT session was able to perform dressing, grooming and bathing (I) sitting in chair. Recommend pt return home. GOALS 1. Transfers S, FWW 2. Dressing (I) upper and lower body dressing sitting in chair with use of (B) UE when appropriate 3. Bathing Min (A) with transfer into step in tub sitting on shower chair, able to (I) wash upper and lower extremities 4. Toileting (I) on toilet. 5. Eating (I) Pt met goals 2 and 5. PLAN: D/C from OT services. Recommend pt to return home with family. TREATMENT CODES/TIME: G Codes in the area of self- : washing oneself, toileting, dressing, eating and drinking, current status [id number] CK projected status GP [id number], discharge status GP [id number]
[2018-08-24] MEDS: predniSONE 5 MG TAB 7.5 MG PO (08:42)
[2018-08-24] MEDS: Gabapentin 300 MG CAP 600 MG PO (08:42)
[2018-08-24] MEDS: Apixaban 2.5 MG TAB PO (08:42)
[2018-08-24] MEDS: Lidocaine 5% Patch 1 PATCH TP (08:42)
[2018-08-24] MEDS: Methadone 5 MG TAB PO (08:43)
--- NOTE | 2018-08-24 09:35 | PDOC.CMDIS ---
- If Service Date Differs Date of service: 08/24/18 Time of Service: 09:35 LACE Index Scoring Tool - Questions: Length of Stay (in days): 7 - 13 Acuity (Admit via E.D.?): No Comorbidities: Liver or Renal Disease E.D. Visits: 2 - Answers: Total Score: 12 Risk of Readmission: High Risk Care Management Discharge Reason for Hospitalization: Gastric enteric fistula. Discharge Plan: Tanja is being discharged home today CM contact [facility] and coordianted transporation from hospital to her appointment at [facility]. She will be discharged home with a wound vac.[facility] to provide home visit on Thursday. CM contacted Home health and confirmed the visit. CM notified family of discharge and transporation home. Patient/Family Education Needs: Discharge education, follow up plan, limitations and ask me three education and self management, Services Needed at Discharge: Home Health Care Services, Infusion Therapy, Physical Therapy, Transportation
--- NOTE | 2018-08-24 10:06 | CMDISCH_ITS ---
- If Service Date Differs Date of service: 08/24/18 Time of Service: 09:35 LACE Index Scoring Tool - Questions: Length of Stay (in days): 7 - 13 Acuity (Admit via E.D.?): No Comorbidities: Liver or Renal Disease E.D. Visits: 2 - Answers: Total Score: 12 Risk of Readmission: High Risk Care Management Discharge Reason for Hospitalization: Gastric enteric fistula. Discharge Plan: Tanja is being discharged home today CM contact [facility] and coordianted transporation from hospital to her appointment at [facility]. She will be discharged home with a wound vac.[facility] to provide home visit on Thursday. CM contacted Home health and confirmed the visit. CM notified family of discharge and transporation home. Patient/Family Education Needs: Discharge education, follow up plan, limitations and ask me three education and self management, Services Needed at Discharge: Home Health Care Services, Infusion Therapy, Physical Therapy, Transportation
== END 2018-08-24 09:58 | disposition home health service (06) | DRG 920 ==
PROVIDERS: Admitting Provider Surgery; PCP Family Medicine; Visit Provider Surgery
PROC: (CPT 49320; principal; 2018-08-17 09:45)
DX: T81.83XA Persistent postprocedural fistula, initial encounter (principal); K31.6 Fistula of stomach and duodenum; L89.152 Pressure ulcer of sacral region, stage 2; G70.00 Myasthenia gravis without (acute) exacerbation; I50.9 Heart failure, unspecified; I48.91 Unspecified atrial fibrillation; D47.2 Monoclonal gammopathy; Z73.89 Other problems related to life management difficulty
CPT/HCPCS: 43870; 36415; 80048; 80053; 85652; 88305; 97110; 97162; 97166; 97530; 97535; 99223; 99239; J1650; NC; 74022; 83735; 85025; 85610; 85730; 86140; 88304; J0131; J1200; J1720; J2405; J2543; J3490; J7512

== ENCOUNTER → 2018-09-13 12:41 | Outpatient (BNVA) | payer MEDICARE, BC, SELFPAY | PROVIDERS: PCP Family Medicine; Referring Provider Family Medicine; Visit Provider Surgery | DX: Z51.89 Encounter for other specified aftercare (principal); K31.6 Fistula of stomach and duodenum ==

== ENCOUNTER 2018-10-28 01:36 | Outpatient (CLI) | payer MEDICARE, BC, SELFPAY ==
--- NOTE | 2018-10-28 14:32 | DI.RAD_ITS ---
SYMPTOMS/DIAGNOSIS: PAIN, R52 CERVICAL SPINE: Flexion and extension views were performed in addition to the routine views. There are severe facet degenerative changes. Degenerative disc changes are seen throughout without prominent anterior spurring. There is reduced range of motion on the flexion and extension views. The neural foramina are not well profiled, however, there is a suggestion of right sided neural foraminal narrowing at C 5 - 6 and C 6 - 7. IMPRESSION: Severe degenerative changes. Reduced range of motion.
== END 2018-10-28 01:56 ==
PROVIDERS: PCP Family Medicine; Visit Provider Psychiatry & Neurology Neurology
DX: M54.2 Cervicalgia (principal); M50.322 Other cervical disc degeneration at C5-C6 level; M50.323 Other cervical disc degeneration at C6-C7 level
CPT/HCPCS: 72052

== ENCOUNTER 2018-12-10 00:35 | Outpatient (CLI) | payer MEDICARE, BC, SELFPAY ==
--- NOTE | 2018-12-10 14:15 | MERGE_ITS ---
*[facility]* *[facility]* [address] [place] [address] Date of study: 12/10/2018 Transthoracic Echocardiography M-mode, complete 2D, complete spectral Doppler, and color Doppler *STUDY CONCLUSIONS* Summary: 1. Left ventricle: The cavity size was normal. Wall thickness was normal. Systolic function was normal. The estimated ejection fraction was 60-65%. Wall motion was normal; there were no regional wall motion abnormalities. Findings consistent with diastolic dysfunction. 2. Aortic valve: Trileaflet; normal thickness leaflets. There was trivial regurgitation. 3. Right ventricle: The cavity size was normal. Wall thickness was normal. Systolic function was normal. 4. Pulmonary arteries: Pulmonary systolic pressure was increased, in the range of 35mm Hg to 40mm Hg. *PATIENT PRESENTATION* Height: 172.7cm ((68in) ) S/D Pressure: 117 / 68 Weight: 61.2kg ((134.7lb) ) BSA: 1.71m^2 Test start time: 02:15 PM. Test stop time: 03:10 PM. PERFORMING Unknown CONSULTING Maribell Choi PERFORMING [facility] DOCTOR OF NAPRAPATHY Zoey Morales, RT (R)(CT), [facility] ORDERING Philly Handy REFERRING Philly Handy *PROCEDURE DATA* Procedure information: The patient was identified by two identifiers. This study was interpreted by [facility]. Pertinent images and digital data are archived for permanent storage and are available for subsequent review. Comparison was made to the study of 07/31/2017. Study status: Routine. Transthoracic echocardiography. M-mode, complete 2D, complete spectral Doppler, and color Doppler. A Transthoracic Echocardiogram was performed. Scanning was performed from the parasternal, apical, subcostal, and suprasternal notch acoustic windows. Images were obtained using an [id number] cardiac ultrasound machine. Image quality was adequate. Study completion: The patient tolerated the procedure well. History: PMH: SOB CHF, hyasthemnia gravis. H/o CHF with ef of 35-40% in [place] in [place]- no recent reevaluation- considering fistula placement for pheresis. *CARDIAC ANATOMY* Left ventricle: The cavity size was normal. Wall thickness was normal. Systolic function was normal. The estimated ejection fraction was 60-65%. Wall motion was normal; there were no regional wall motion abnormalities. Findings consistent with diastolic dysfunction. Aortic valve: Trileaflet; normal thickness leaflets. Mobility was not restricted. Doppler: Transvalvular velocity was within the normal range. There was no stenosis. There was trivial regurgitation. VTI ratio of LVOT to aortic valve: 0.68. Valve area (VTI): 2.1cm^2. Indexed valve area (VTI): 1.2cm^2/m^2. Peak velocity ratio of LVOT to aortic valve: 0.74. Valve area (Vmax): 2.3cm^2. Indexed valve area (Vmax): 1.4cm^2/m^2. Mean velocity ratio of LVOT to aortic valve: 0.7. Valve area (Vmean): 2.2cm^2. Indexed valve area (Vmean): 1.3cm^2/m^2. Mean gradient (S): 3.1mm Hg. Peak gradient (S): 4.6mm Hg. Aorta: Aortic root: The aortic root was normal in size. Ascending aorta: The ascending aorta was normal in size. Mitral valve: Structurally normal valve. Mobility was not restricted. Doppler: Transvalvular velocity was within the normal range. There was no evidence for stenosis. There was trivial regurgitation. Valve area by pressure half-time: 4.4cm^2. Indexed valve area by pressure half-time: 2.6cm^2/m^2. Left atrium: The atrium was normal in size. Right ventricle: The cavity size was normal. Wall thickness was normal. Systolic function was normal. Pulmonic valve: Structurally normal valve. Doppler: Transvalvular velocity was within the normal range. There was no evidence for stenosis. There was trivial regurgitation. Peak gradient (S): 1.9mm Hg. Tricuspid valve: Structurally normal valve. Doppler: Transvalvular velocity was within the normal range. There was no evidence for stenosis. There was mild regurgitation. Pulmonary artery: Pulmonary systolic pressure was increased, in the range of 35mm Hg to 40mm Hg. Right atrium: The atrium was normal in size. Pericardium: There was no pericardial effusion. Systemic veins: Inferior vena cava: Well visualized. The vessel was patent and normal in size. The respirophasic diameter changes were in the normal range (greater than or equal to 50%). Baseline ECG: Normal sinus rhythm. Measurements Left ventricle Value 07/31/2017 Reference LV ID, ED, PLAX 4.4 cm 4.0 3.5 - 6.0 LV ID, ES, PLAX 2.8 cm 2.8 2.1 - 4.0 LV PW thickness, ED, PLAX 0.9 cm 0.9 LV end-diastolic volume, 62 ml 62 1-p A4C LV ejection fraction, 1-p 60 % 55 A4C LV e', lateral 0.054 m/sec LV E/e', lateral 9 LV e', medial 0.064 m/sec LV E/e', medial 7 LV e', average 0.059 m/sec LV E/e', average 8 Ventricular septum Value 07/31/2017 Reference IVS thickness, ED, PLAX 0.8 cm 0.7 LVOT Value 07/31/2017 Reference LVOT ID, A-P 2.0 cm 2.0 LVOT area 3.1 cm^2 3 LVOT peak velocity, S 0.8 m/sec 0.88 LVOT mean velocity, S 0.61 m/sec LVOT VTI, S 17.1 cm 18.8 LVOT peak gradient, S 2.5 mm Hg LVOT mean gradient, S 1.6 mm Hg 1.5 Stroke volume (SV), LVOT 53 ml DP Stroke index (SV/bsa), 31 ml/m^2 LVOT DP Aortic valve Value 07/31/2017 Reference Aortic valve peak 1.1 m/sec velocity, S Aortic valve mean 0.86 m/sec velocity, S Aortic valve VTI, S 25.0 cm Aortic mean gradient, S 3.1 mm Hg 4 Aortic peak gradient, S 4.6 mm Hg 7 VTI ratio, LVOT/AV 0.68 0.7 Aortic valve area, VTI 2.1 cm^2 2.1 Velocity ratio, peak, 0.74 LVOT/AV Aortic valve area, peak 2.3 cm^2 2.1 velocity Velocity ratio, mean, 0.7 LVOT/AV Aortic valve area, mean 2.2 cm^2 velocity Aortic valve area/bsa, 1.3 cm^2/m^2 mean velocity Aorta Value 07/31/2017 Reference Aortic root ID, ED 3.3 cm 3.3 Ascending aorta ID, A-P, S 3.0 cm 3.0 Left atrium Value 07/31/2017 Reference LA ID, A-P, ES 1.9 cm LA ID/bsa, A-P 1.1 cm/m^2 <=2.2 LA area, ES, A4C 12.6 cm^2 14 8.8 - 23.4 LA volume/bsa, ES, 1-p A4C 16 ml/m^2 18 LA/aortic root ratio 0.58 0.72 Mitral valve Value 07/31/2017 Reference Mitral E-wave peak 0.47 m/sec 0.88 velocity Mitral A-wave peak 0.94 m/sec 0.91 velocity Mitral deceleration time 172 ms 150 - 230 Mitral pressure half-time 50 ms 58 Mitral E/A ratio, peak 0.5 0.97 Mitral valve area, PHT, DP 4.4 cm^2 3.8 Tricuspid valve Value 07/31/2017 Reference Tricuspid regurg peak 2.9 m/sec 3.1 velocity Tricuspid peak RV-RA 34.4 mm Hg 37.9 gradient Right atrium Value 07/31/2017 Reference RA area, ES, A4C 9.9 cm^2 14.5 8.3 - 19.5 Pulmonic valve Value 07/31/2017 Reference Pulmonic peak gradient, S 1.9 mm Hg Legend: (L) and (H) marita values outside specified reference range. I have personally reviewed the images and have reviewed and edited the reported findings. Electronically signed by Casimiro Arnett 12/10/2018 15:55
== END 2018-12-10 00:55 ==
PROVIDERS: PCP Family Medicine; Visit Provider Surgery Vascular Surgery
DX: R06.02 Shortness of breath (principal); I51.89 Other ill-defined heart diseases
CPT/HCPCS: 93306

== ENCOUNTER 2019-09-03 23:26 | Outpatient (REF) | payer MEDICARE, BC, SELFPAY | END 2019-09-03 23:46 | LOC: NCHCN 23:26 | PROVIDERS: PCP Family Medicine; Visit Provider Family Medicine | DX: L89.154 Pressure ulcer of sacral region, stage 4 (principal) | CPT/HCPCS: 87070; 87205 ==

== ENCOUNTER 2020-02-04 11:33 | Inpatient (IN) | payer MEDICARE, BC, SELFPAY ==
[2020-02-04] VITALS (97 sets, daily range): BP systolic 46–134; BP diastolic 12–98; PULSE 51–101; RESP 2–29; TEMP 36.4–37.7; O2SAT 90–100
--- NOTE | 2020-02-04 11:24 | ED.GENADUL_ITS ---
Discharge Plan Disposition Patient Disposition: [facility] INPATIENT Condition: Serious Discharge Details Chief Complaint: AMS/LOC Clinical Impression: Sepsis, Septic shock, Multifocal pneumonia, Acute adrenal insufficiency Admit Date/Time: 02/04/20 13:36 Admit Provider: Shreya Parker Attending Provider: Shreya Parker Primary Care Provider: Maribell Choi ED Provider: Danae Gómez Discharge Data Discharge Date/Time-TO BE ENTERED AT DEPARTURE: 02/04/20 15:36 Medical Decision Making Patient is an 84-year-old female with history of atrial fibrillation, B12 deficiency, CHF, chronic constipation, compression fracture of spine, 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 Patient is anticoagulated on Eliquis and states that she has been taking her medication as prescribed. She is brought in today via EMS with concern for septic shock. Home health had gone to evaluate the patient this morning to evaluate her chronic sacral pressure wound. However, the patient was fairly unresponsive was noted to be hypotensive. T-max of 102 ?F this morning. EMS was contacted who reports the patient was lethargic with a systolic blood pressure of 50. They immediately obtain access and began levo fed. Small bolus was given but as the patient does have a history of CHF, they were hesitant to give a large amount of fluid. They report that while in route, her pressure did begin to improve rested her mentation she is now alert and oriented x3. Patient states that she was feeling fairly well yesterday. Denied any cough. No recent travel. No known sick exposures. She reports feeling unwell this morning with a precipitous decline once home health nursing staff arrived. Denies ever being febrile yesterday. Denies abdominal pain, nausea vomiting. She denies any dysuria or change in urinary habits. She does report that she is slightly incontinent at baseline. Patient does have a decubitus ulcer on her sacrum that she reports that nursing staff has not reported any signs of infection. She does have chronic pain associated with this as well as chronic pain in her spine she states no acute change in this. She denies any headaches. On exam, patient is alert and oriented x3. She appears very fatigued and is preferring to keep her eyes shut. She is moving all of her extremities appropriately. She has no nuchal rigidity. She does have focal consolidation noted in the right upper lobe with crackles as well in the lower lobes. She does not appear to be in any respiratory distress. She is on 2 L nasal cannula is applied by EMS. Abdominal exam is benign. She has no swelling of the lower extremities. She does have chronic skin discoloration of the lower extremities and nonpalpable pulses. However, the patient does have a bounding radial pulse bilaterally. EMS did accidentally puncture patient's fistula unknowingly and this is wrapped with a pressure dressing. Initially, based on the EMS report, I had ordered COVID 19 testing. However, on further testing the patient, she has had multiple sick contacts, no travel. She is also denying any cough. With this in mind, I do not plan to test screening is negative. I had initially also ordered stool testing the patient has been endorsing loose stools for some time and was concern for possible C. difficile infection. However, patient did have a bowel movement which was quite formed. It was black patient is taking iron. I do not feel that evaluation for possible C. difficile infection is appropriate at this time and orders are canceled. Labs reviewed. Patient has a white count of 14.4 with left shift. INR is normal at 1.0. Creatinine is 1.5, this is up from her baseline of 1.3. CRP is elevated at 1.36. BNP 443 which is low for the patient. Patient is actively receiving hydration, she is on her second liter of fluids. Consult with Dr. Quispe. I am concerned that the patient has a fistula on the right side, bleeding around the left sided IV with inflation of thecuff, that we are not able to obtain accurate blood pressures. Months of questioning with the need for pressure of the central line would be appropriate. I did speak with Dr. Quispe regarding art line and central line and she advised that the patient would probably benefit from reversal agent prior to placement of the line Consulted with hospitalist regarding reversal. At this point, as the patient is managed well with any peripheral line despite not very accurate blood pressure readings, she did not feel that reversal would be appropriate for this patient. Rather, she advised we continue to monitor patient's radial pulse as this was bounding despite a poor read on wrist cuff. She was advised giving the patient 100 mg of hydrocortisone as she is on prednisone daily. Chest x-ray was obtained and reviewed by myself as well as radiology: FINDINGS: Lungs: Right upper lobe consolidation consistent with infiltrate. Minor airspace disease in the infrahilar region of the right lower lobe. Left lung appears clear. Hyperinflation suggesting COPD. Pleural space: Unremarkable. No pleural effusion. No pneumothorax. Heart/Mediastinum: Unremarkable. No cardiomegaly. Bones/joints: Degenerative thoracic spine. IMPRESSION: 1. Right upper lobe infiltrate with lobar consolidation volume loss. 2. Mild right lower lobe infrahilar infiltrate. 3. Degenerative thoracic spine disease. Patient started on ceftriaxone for pneumonia. After receiving the steroid, patient's pressures are markedly improved. Further chart reviewed has been concerned possible Pseudomonas infection as she has had a history of pseudomonal pneumonia in the past. We will start the patient on imipenem. Consulted with Dr. Parker, she agrees to admission and will place orders. Shortly after plan for admission, patient began to sound more wet. She has no lower extremity edema and normal BNP, I am concerned she may be flash and will obtain another bedside x-ray. Fluids were slowed down. Bedside x-ray reviewed by myself without any significant change from initial. Will now discuss with respiratory therapy as patient may have a mucous plug and may benefit from Acapella. Fluids restarted CXR reviewed by radiologist: FINDINGS: Lungs: Right upper lobe infiltrate. No change since exam approximately 1 hour ago. Stable right lower lobe infiltrate. Left lung continues to be well aerated. Hyperinflation suggesting COPD. Pleural space: Unremarkable. No pleural effusion. No pneumothorax. Heart/Mediastinum: Unremarkable. No cardiomegaly. Bones/joints: Degenerative thoracic spine disease. Midthoracic level compression fractures appearing chronic. IMPRESSION: Stable right upper lobe and right lower lobe pneumonia. Patient did bring up a large amount of thick green sputum and did set improved after Acapella treatment. Patient transitioned to medical surgical unit. She remains on norepinephrine, has received antibiotics and 2 L of fluids. HPI General Mode of arrival: EMS . Date/Time Provider Initiated Documentation: 02/04/20 12:46 . Limitations to Documentation: no limitations . Information obtained by: EMS and RN notes reviewed . HPI Narrative: Patient 84-year-old female, brought in via EMS, with chief complaint of hypotension concern for possible septic shock. Patient reports she was doing well yesterday but was feeling poorly today. Was noted to be febrile by home health who is coming to assess her in clinic several pressures were. EMS was reported that she has been coughing but patient denies this at this time. She denies any congestion sore throat. No chest pain or difficulty breathing. EMS does report that her O2 was low around 91% prior to arrival. Her pressure was initially 5930 when they arrived they did begin norethindrone. She denies abdominal pain. States that she does have loose stools. No rash. Has chronic back pain but denies any acute changes. No dysuria. No recent travel or known sick contacts. Patient is otherwise home bound. Related Data Home Medications Medication Instructions Recorded Confirmed Eliquis 2.5 mg PO BID 07/08/17 02/04/20 folic acid 0.8 mg PO DAILY 07/08/17 02/04/20 gabapentin 600 mg PO BID 07/08/17 02/04/20 prednisone 10 mg PO DAILY 07/08/17 02/04/20 cyanocobalamin (vitamin B-12) 1 ea IM .QMONTH 07/27/17 02/04/20 ergocalciferol (vitamin D2) 50,000 units PO .QOWEEK 07/27/17 02/04/20 [Vitamin D2] bisacodyl 1 ea [place] PRN PRN 09/26/17 02/04/20 sennosides 8.6 mg tablet 8.6 mg PO BID PRN 08/02/18 02/04/20 ferrous sulfate 325 mg PO BID 08/06/18 02/04/20 methadone [Dolophine] 5 mg PO DAILY 08/06/18 02/04/20 acetaminophen [Tylenol] 650 mg PO Q4H PRN PRN #30 tab 08/10/18 02/04/20 multivitamin [Multiple Vitamins] 1 tab PO DAILY 08/16/18 02/04/20 diphenoxylate-atropine [Lomotil] 1 tab PO TID 02/04/20 02/04/20 hydromorphone [Dilaudid] 2 mg PO BID MDD 3mg Q3H 02/04/20 02/04/20 lidocaine [Lidoderm] See Rx Instructions .ROUTE .COMPLEX 02/04/20 02/04/20 melatonin 10 mg PO HS 02/04/20 02/04/20 Previous Rx's Medication Instructions Recorded acetaminophen [Tylenol] 650 mg PO Q4H PRN PRN #30 tab 08/10/18 Allergies Allergy/AdvReac Type Severity Reaction Status Date / Time Sulfa (Sulfonamide Allergy Hives Verified 02/04/20 13:36 Antibiotics) General KIERSTEN: 2 Review of Systems Constitutional Constitutional: Reports as per HPI, Denies chills, Reports fever(s) and Denies poor appetite Cardiovascular Cardiovascular: Denies chest pain, Denies chest pain at rest, Denies syncope, Denies lightheadedness, Denies radiating jaw, neck or arm pain, Denies palpitations, Reports dyspnea and Denies dyspnea on exertion Respiratory Respiratory: Denies chest congestion, Denies cough, Denies hemoptysis, Denies pain on inspiration, Denies pain with cough, Reports dyspnea, Denies dyspnea on exertion and Denies wheezing Gastrointestinal Gastrointestinal: Denies abdominal pain, Reports change in bowel habits (Chronic constipation, reports recently more loose), Denies nausea and Denies vomiting Genitourinary Genitourinary: Reports as per HPI Musculoskeletal Musculoskeletal: Reports as per HPI and Reports back pain (Chronic back pain associated with fractures, no acute change, no trauma) Integumentary/Breasts Skin/Breast: Reports as per HPI and Denies rash Neurologic Neurologic: Denies syncope Endocrine Endocrine: Denies palpitations Allergic/Immunologic Allergic/Immunologic: Denies wheezing [facility] Medical History (Updated 02/05/20 @ 10:19 by MARILEE Farley) Aspiration pneumonia (Acute) Atrial fibrillation (Chronic) B12 deficiency (Chronic) Cardiomyopathy (Acute) Echo 12/10/2018: EF 60-65%, up from 35% previously; does have diastolic dysfun ction CHF (congestive heart failure) (Resolved) Chronic constipation (Chronic) Chronic insomnia (Chronic) 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 Chronic respiratory failure with hypoxia (Acute) Compression fracture of spine (Chronic) Depression (Inactive) Dysphagia (Acute) 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) Hx of deep venous thrombosis (Resolved) Lumbago (Resolved) Macrocytic anemia (Resolved) Malnutrition (Resolved) Myasthenia gravis (Chronic) Osteoporosis (Chronic) Peripheral neuropathic pain (Inactive) Post herpetic neuralgia (Resolved) Pulmonary arterial hypertension (Acute) PA pressure 35-40 mm Hg Sacral decubitus ulcer, stage IV (Inactive) Surgical History (Updated 02/04/20 @ 16:00 by Shreya Parker MD) Abdominal fistula (Resolved 08/17/18) repair by Dr Elizalde AV fistula (Inactive) RUE Gastrostomy complication (Resolved 08/17/18) gastric enteric fistula repair by Dr Elizalde Gastrostomy infection (Resolved 08/10/18) Dr Elizalde, excised tissue at old g-tube site and closed g-tube tract surgically. Gastrostomy Tube Placement (Resolved) H/O wisdom tooth extraction (Acute) S/P appendectomy (Acute) Family History (Updated 02/04/20 @ 15:53 by Shreya Parker MD) Father Heart disease Mother Cancer pancreatic Social History Smoking/Tobacco Use Status: Never Alcohol Intake: never Drug use: Never Substance use type: does not use Do you feel safe in your relationship?: Yes Exam Const General: cooperative, comfortable, well developed and ill appearing acutely Nutritional Appearance: average body habitus and well nourished Orientation: alert, awake and oriented x3 HENMT Head: normal to inspection, normocephalic and atraumatic Ears: hearing grossly normal bilaterally, external ears normal and TM's normal bilaterally General nose exam: external nose normal Face and sinus: normal facial exam and sinuses nontender Mouth: No moist mucous membranes abnormal (Patient appears dry on exam) Throat: posterior oropharynx normal, tonsils normal and uvula midline Eyes General: appearance normal, both eyes and all related structures Visual Pabon: normal visual pabon by confrontation Alignment and Position: alignment normal Periorbital: periorbital findings normal Eyelids: eyelids normal Conjunctivae: conjunctivae normal Sclera: sclerae normal Cornea: corneas normal Pupils: PERRL EOM: EOM intact bilaterally Neck Neck: normal visual inspection, full ROM, no lymphadenopathy, no meningeal signs, trachea midline and supple Resp Effort & Inspection: normal respiratory effort and no respiratory distress Auscultation: not clear to auscultation bilaterally, crackles on the right in the mid lung pabon and in the upper lung pabon and on the left at the base, no rales, no rhonchi and no wheezes Cardio Rate: regular rate Rhythm: regular rhythm Heart Sounds: S1 normal and S2 normal GI Inspection: normal to inspection Palpation: soft, no hepatosplenomegaly, not firm, no guarding, not rigid and nontender Back/Spine/Pelvis Back: no CVA tenderness Skin General skin exam: no rashes or lesions noted Trauma: no lacerations or abrasions Neuro General: patient alert and patient awake Cognition: normal cognition Speech: speech normal Gait: normal gait Extrem General: normal to inspection, capillary refill normal, no joint enlargement, no clubbing, cyanosis or edema, no pedal edema, no calf tenderness and abnormal gait (Not assessed) Psych Appearance: grossly normal and well kempt Mental Status: mental status grossly normal Speech and Movement: speech and movement normal
[2020-02-04 12:12] LABS: Abs Immature Grans 0.04 k/cumm (0.0-0.09); Absolute Basophil Count 0.01 k/cumm (0.0-0.2); Absolute Eosinophil Count 0.14 k/cumm (0.0-0.7); Absolute Lymphocyte Count 2.76 k/cumm (1.2-3.4); Absolute Monocyte Count 0.59 k/cumm (0.11-0.7); Basophils % 0.1; HCT 43.8 % (36.0-46.0); HGB 14.1 g/dL (12.0-15.5); Immature Grans % 0.3 %; Lymphocytes % 19.1; Mean Corp. HGB Concentration 32.2 g/dL (32.0-36.0); Mean Corpuscular Hemoglobin 33.5 pg (27.0-33.0); Monocytes % 4.1; Neutrophils % 75.4; Platelet Count 177 x1000/uL (130-400); RBC 4.21 m/cumm (4.00-5.20); White Blood Cell Count 14.47 k/cumm (4.4-10.8)
[2020-02-04 12:13] LABS: Absolute Neutrophil Count 10.91 k/cumm (1.2-6.7)
[2020-02-04 12:23] LABS: Prothrombin Time 9.7 sec (9.3-11.0)
[2020-02-04] MEDS: Normal Saline 1,000 ML 1000 ML IV (12:30)
[2020-02-04] MEDS: cefTRIAXone 1 GM/50 ML BAG IVPB (12:32)
[2020-02-04 12:33] LABS: ALT 13 U/L (14-59); AST 12 U/L (15-37); Albumin 3.6 g/dL (3.4-5.0); Alkaline Phosphatase 41 U/L (46-116); Anion Gap 6.9 mmol/L (3-11); BUN 26 mg/dL (7-18); Bilirubin, Total 0.6 mg/dL (0.2-1.0); C-Reactive Protein 1.36 mg/dL (0.0-0.3); CO2 30.1 mmol/L (21.0-32.0); CREATININE 1.55 mg/dL (0.55-1.02); Chloride 103 mmol/L (98-107); Estimated GFR 32.01 (mL/min/1.73m2); Glucose 105 mg/dL (74-106); NT-proBNP 443 pg/mL (<300); Sodium 140 mmol/L (136-145); Total Protein 6.1 g/dL (6.4-8.2)
[2020-02-04 12:52] LABS: Bilirubin Negative (Negative); Blood Negative (Negative); Clarity Clear (Clear); Glucose Negative (Negative); Ketones Negative (Negative); Leukocyte Esterase Negative (Negative); Nitrite Negative (Negative); Urobilinogen 0.2 EU/dL (Up TO 0.2)
[2020-02-04 13:00] LABS: Lactate 2.5 mmol/L (0.6-1.4)
--- NOTE | 2020-02-04 13:00 | DI.RAD_ITS ---
EXAM: XR PORTABLE CHEST AP CLINICAL HISTORY: septic shock, cough TECHNIQUE: 2D digital imaging was performed. COMPARISON: CHEST 2 VIEWS PA,LAT from 08/06/2017 FINDINGS: MEDIASTINUM: Normal. HEART: Normal. PULMONARY VASCULATURE: Normal. Calcification of the thoracic aorta. LUNGS: Right upper lobe opacity suspicious for pneumonia. Interstitial infiltrate in the right infra hilar region. No focal consolidating infiltrates are seen on the left. PLEURAL SPACE: No pleural effusion or pneumothorax. BONE:Degenerative changes in the spine. Old midthoracic compression deformities are noted. OTHER FINDINGS:Normal. IMPRESSION: 1. Right upper lobe infiltrate consistent with pneumonia. 2. Interstitial infiltrate in the right infrahilar region. This may represent acute pneumonia. DATA REPOSITORY: RADIATION DOSE DELIVERED:
[2020-02-04 13:02] LABS: ESR 9 mm/hr (0-30)
[2020-02-04] MEDS: Hydrocortisone SOD SUC. 100 MG VIAL IVP (13:07)
[2020-02-04] MEDS: IMIPENEM/CILASTATIN 500 MG in Normal Saline 100 ML 200 MG IVPB (13:14)
--- NOTE | 2020-02-04 13:25 | DI.VRAD_ITS ---
PROCEDURE INFORMATION: Exam: XR Chest, 1 View Exam date and time: 02/04/2020 12:52 PM Age: 84 years old Clinical indication: Other: Septic shock, cough TECHNIQUE: Imaging protocol: XR of the chest Views: 1 view. COMPARISON: CR XR ABD FLAT UPRIGHT PA CHEST 08/16/2018 4:57 PM FINDINGS: Lungs: Right upper lobe consolidation consistent with infiltrate. Minor airspace disease in the infrahilar region of the right lower lobe. Left lung appears clear. Hyperinflation suggesting COPD. Pleural space: Unremarkable. No pleural effusion. No pneumothorax. Heart/Mediastinum: Unremarkable. No cardiomegaly. Bones/joints: Degenerative thoracic spine. IMPRESSION: 1. Right upper lobe infiltrate with lobar consolidation volume loss. 2. Mild right lower lobe infrahilar infiltrate. 3. Degenerative thoracic spine disease. Dictated and Authenticated by: Fabián Castañeda MD. Ordering:LISA Fink MD
--- NOTE | 2020-02-04 13:50 | DI.RAD_ITS ---
EXAM: XR PORTABLE CHEST AP CLINICAL HISTORY: increased rhonchi TECHNIQUE: 2D digital imaging was performed. COMPARISON: XR PORTABLE CHEST AP from 02/04/2020 FINDINGS: There has been no change in appearance of the chest x-ray compared to the prior examination from [facility] in the day. There are persistent right upper lobe and right infrahilar infiltrates. IMPRESSION: Stable right upper and right infrahilar pneumonia. DATA REPOSITORY: RADIATION DOSE DELIVERED:
--- NOTE | 2020-02-04 13:57 | DI.VRAD_ITS ---
PROCEDURE INFORMATION: Exam: XR Chest, 1 View Exam date and time: 02/04/2020 1:48 PM Age: 84 years old Clinical indication: Other: Increased rhonchi TECHNIQUE: Imaging protocol: XR of the chest Views: 1 view. COMPARISON: CR XR PORTABLE CHEST AP 02/04/2020 12:49 PM FINDINGS: Lungs: Right upper lobe infiltrate. No change since exam approximately 1 hour ago. Stable right lower lobe infiltrate. Left lung continues to be well aerated. Hyperinflation suggesting COPD. Pleural space: Unremarkable. No pleural effusion. No pneumothorax. Heart/Mediastinum: Unremarkable. No cardiomegaly. Bones/joints: Degenerative thoracic spine disease. Midthoracic level compression fractures appearing chronic. IMPRESSION: Stable right upper lobe and right lower lobe pneumonia. Dictated and Authenticated by: Fabián Castañeda MD. Ordering:LISA Fink MD
[2020-02-04] MEDS: DOXYCYCLINE 100 MG in Normal Saline 100 ML IVPB (14:17)
[2020-02-04] MEDS: Normal Saline 1,000 ML 200 ML IV (14:44)
[2020-02-04 15:04] LABS: Procalcitonin 0.1 ng/mL
--- NOTE | 2020-02-04 15:36 | HPE_ITS ---
Date of service: 02/04/20 Time of Service: 15:37 Assessment and Plan Assessment and plan (1) Septic shock: Status: Acute Assessment and plan: Exacerbated by acute adrenal insufficiency, as well, likely precipitated by RUL/RLL pneumonia with h/o pseudomonas and aspiration pneumonias in the past. Started on empiric doxycycline, vancomycin, zosyn, aztreonam (for double coverage of pseudomonas). Will continue stress dose steroids, decrease IVF as patient is starting to sound wet, and wean vasopressors as able. Monitor blood cultures. Admit to ICU. (2) Multifocal pneumonia: Status: Acute Assessment and plan: Present on admission. H/o aspiration pneumonia and pseudomonas PNA. Await cx, as above. Tx with abx, as above Wean O2 as able. Treat with scheduled and prn nebs. (3) Acute adrenal insufficiency: Status: Acute Assessment and plan: Started on stress dose steroids - will continue (4) Pulmonary arterial hypertension: Status: Acute Assessment and plan: carefully monitor respiratory status while hydrating (5) Chronic respiratory failure with hypoxia: Status: Acute Assessment and plan: O2 requirement 2L at this time - will monitor. (6) Myasthenia gravis: Status: Chronic Assessment and plan: On chronic steroids/ receiving plasmaphoresis. For now, will continue stress dose steroids. May require transfer for plasmaphoresis if weakness worsens. (7) Atrial fibrillation: Status: Chronic Assessment and plan: Paroxysmal - rate is controlled; continue eliquis. (8) Hx of deep venous thrombosis: Status: Resolved Assessment and plan: Continue eliquis (9) DVT prophylaxis: Status: Acute Assessment and plan: On therapeutic eliquis (10) Discharge planning issues: Status: Acute Assessment and plan: DNR/DNI. Total Critical Care Time 1 hour. History of Present Illness History of Present Illness Chief Complaint: I didn't know I was sick until today Narrative: Ms Carpio is an 84 year old female with PMHx of myasthenia gravis, on chronic prednisone therapy (most recent dose 10 mg daily) as well as plasma apahresis treatments biweekly at [facility] via her RUE AV fistula, h/o several multi-drug resistant pseudomonas pneumonias, h/o Afib and DVT, on eliquis, question of dysphagia with mention of prior aspiration pneumonitis, and chronic pain on methadone 5 mg PO daily, who was found to be confused and to appear ill today by her daughter in law, who in turn called home health nursing, who then called EMS. The patient was found to be rather hypotensive and initiated on levophed and aggressive IVF. In the ED, she was also given stress dose steroids. Her workup revealed RUL/RLL PNA. She was initiated on broad spectrum antibiotics, and we were asked to admit the patient for further care. At this point, the patient states she already feels a lot better. Her MAPs while on pressors are in the 60's. She is saturating 95% on 2L. She was able to produce green sputum when working with respiratory therapy. Until coming to the hospital, the patient states she did not have a fever, runny nose, sore throat or a cough. She thinks she may have had some difficulty swallowing. She denies travel out of state or sick contacts. She is being admitted to the ICU for septic shock and acute adrenal insufficiency due to bacterial pneumonia. Review of Systems Narrative: 12 systems reviewed. Pertinent positives and negatives are as per HPI. In addition, the patient endorses feeling weak, like she can't walk, being confu sed this morning. 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) Hx of deep venous thrombosis (Resolved) Lumbago (Resolved) Macrocytic anemia (Resolved) Malnutrition (Resolved) Myasthenia gravis (Chronic) Osteoporosis (Chronic) Peripheral neuropathic pain (Inactive) Post herpetic neuralgia (Resolved) Pulmonary arterial hypertension (Acute) PA pressure 35-40 mm Hg Sacral decubitus ulcer, stage IV (Inactive) Surgical History (Updated 02/04/20 @ 16:00 by Shreya Parker MD) Abdominal fistula (Resolved 08/17/18) repair by Dr Eilzalde AV fistula (Inactive) RUE Gastrostomy complication (Resolved 08/17/18) gastric enteric fistula repair by Dr Elizalde Gastrostomy infection (Resolved 08/10/18) Dr Elizalde, excised tissue at old g-tube site and closed g-tube tract surgically. Gastrostomy Tube Placement (Resolved) H/O wisdom tooth extraction (Acute) S/P appendectomy (Acute) Family History (Updated 02/04/20 @ 15:53 by Shreya Parker MD) Father Heart disease Mother Cancer pancreatic Social History Smoking/Tobacco Use Status: Never Alcohol Intake: never Drug use: Never Substance use type: does not use Do you feel safe in your relationship?: Yes Meds Home Medications and Allergies Home Medications Medication Instructions Recorded Confirmed Type Eliquis 2.5 mg PO BID 07/08/17 02/04/20 History folic acid 0.8 mg PO DAILY 07/08/17 02/04/20 History gabapentin 600 mg PO BID 07/08/17 02/04/20 History prednisone 10 mg PO DAILY 07/08/17 02/04/20 History cyanocobalamin (vitamin B-12) 1 ea IM .QMONTH 07/27/17 02/04/20 History ergocalciferol (vitamin D2) 50,000 units PO .QOWEEK 07/27/17 02/04/20 History [Vitamin D2] bisacodyl 1 ea MS PRN PRN 09/26/17 02/04/20 History sennosides 8.6 mg tablet 8.6 mg PO BID PRN 08/02/18 02/04/20 History ferrous sulfate 325 mg PO BID 08/06/18 02/04/20 History methadone [Dolophine] 5 mg PO DAILY 08/06/18 02/04/20 History acetaminophen [Tylenol] 650 mg PO Q4H PRN PRN #30 tab 08/10/18 02/04/20 Rx multivitamin [Multiple Vitamins] 1 tab PO DAILY 08/16/18 02/04/20 History diphenoxylate-atropine [Lomotil] 1 tab PO TID 02/04/20 02/04/20 History hydromorphone [Dilaudid] 2 mg PO BID MDD 3mg Q3H 02/04/20 02/04/20 History lidocaine [Lidoderm] See Rx Instructions .ROUTE .COMPLEX 02/04/20 02/04/20 History melatonin 10 mg PO HS 02/04/20 02/04/20 History Allergies Allergy/AdvReac Type Severity Reaction Status Date / Time Sulfa (Sulfonamide Allergy Hives Verified 02/04/20 13:36 Antibiotics) Exam Narrative Exam Narrative: General: Very pleasant elderly female, sitting up in bed, appears mildly tachypneic, A&OX3, able to tell her story Neurological: A&OX3, no focal deficits, appears generally weak Psychiatric: appropriate speech pattern/content Skin: does have chronic venous stasis dermatitis; otherwise, visible skin is intact HEENT: Atraumatic, normocephalic, EOMI, dry MM, clear oropharynx, no submandibular or cervical lymphadenopathy, no goiter or JVD Cardiovascular: RRR, no m/r/g Lungs: Rales B Gastrointestinal: soft, nontender, nondistended Genitourinary: has a benitez Extremities: no e/c/c BLE's, warm feet, LUE AVF is dressed with pressure dressing Results Imaging Additional studies: EKG: SR, HR 76, 1st degree AV block, no acute ischemia CXR: Stable right upper lobe and right lower lobe pneumonia. Labs Result diagrams: 02/04/20 11:15 02/04/20 11:15 Labs: Laboratory Results - last 24 hr 02/04/20 02/04/20 02/04/20 11:15 11:15 11:15 WBC 14.47 H RBC 4.21 Hgb 14.1 Hct 43.8 MCV 104.0 H MCH 33.5 H MCHC 32.2 RDW 14.0 Plt Count 177 MPV 10.0 Immature Gran % 0.3 Neutrophils % 75.4 Lymphocytes % 19.1 Monocytes % 4.1 Eosinophils % 1.0 Basophils % 0.1 Absolute Neutrophils 10.91 H Absolute Lymphocytes 2.76 Absolute Monocytes 0.59 Absolute Eosinophils 0.14 Absolute Basophils 0.01 ESR 9 PT 9.7 INR 1.0 Sodium 140 Potassium 4.0 Chloride 103 Carbon Dioxide 30.1 Anion Gap 6.9 BUN 26 H Creatinine 1.55 H Estimated GFR/1.73 m2 32.01 Glucose 105 Lactate Calcium 9.0 Total Bilirubin 0.6 AST 12 L ALT 13 L Alkaline Phosphatase 41 L C-Reactive Protein 1.36 H NT-Pro-B Natriuret Pep 443 H Total Protein 6.1 L Albumin 3.6 Procalcitonin Urine Color Urine Clarity Urine pH Ur Specific [place] Urine Protein Urine Ketones Urine Blood Urine Nitrite Urine Bilirubin Urine Urobilinogen Ur Leukocyte Esterase Urine Glucose Coronavirus (PCR) 02/04/20 02/04/20 02/04/20 11:15 11:24 12:30 WBC RBC Hgb Hct MCV MCH MCHC RDW Plt Count MPV Immature Gran % Neutrophils % Lymphocytes % Monocytes % Eosinophils % Basophils % Absolute Neutrophils Absolute Lymphocytes Absolute Monocytes Absolute Eosinophils Absolute Basophils ESR PT INR Sodium Potassium Chloride Carbon Dioxide Anion Gap BUN Creatinine Estimated GFR/1.73 m2 Glucose Lactate Calcium Total Bilirubin AST ALT Alkaline Phosphatase C-Reactive Protein NT-Pro-B Natriuret Pep Total Protein Albumin Procalcitonin 0.1 Urine Color Yellow Urine Clarity Clear Urine pH 7.0 Ur Specific [place] 1.020 Urine Protein Negative Urine Ketones Negative Urine Blood Negative Urine Nitrite Negative Urine Bilirubin Negative Urine Urobilinogen 0.2 Ur Leukocyte Esterase Negative Urine Glucose Negative Coronavirus (PCR) Cancelled 02/04/20 12:45 WBC RBC Hgb Hct MCV MCH MCHC RDW Plt Count MPV Immature Gran % Neutrophils % Lymphocytes % Monocytes % Eosinophils % Basophils % Absolute Neutrophils Absolute Lymphocytes Absolute Monocytes Absolute Eosinophils Absolute Basophils ESR PT INR Sodium Potassium Chloride Carbon Dioxide Anion Gap BUN Creatinine Estimated GFR/1.73 m2 Glucose Lactate 2.5 H* Calcium Total Bilirubin AST ALT Alkaline Phosphatase C-Reactive Protein NT-Pro-B Natriuret Pep Total Protein Albumin Procalcitonin Urine Color Urine Clarity Urine pH Ur Specific [place] Urine Protein Urine Ketones Urine Blood Urine Nitrite Urine Bilirubin Urine Urobilinogen Ur Leukocyte Esterase Urine Glucose Coronavirus (PCR) Last Vital Signs Temp 37.4 C 02/04/20 14:31 Pulse 85 02/04/20 15:20 Resp 25 H 02/04/20 15:21 BP 95/50 L 02/04/20 15:20 Pulse Ox 95 02/04/20 15:21
[2020-02-04] MEDS: PIPERACILLIN/TAZO 3.375 GM in Normal Saline 50 ML IVPB ×2 (16:20→20:06)
[2020-02-04] MEDS: Acetaminophen 325 MG TAB PO (18:01)
[2020-02-04] MEDS: Albuterol/Ipratropium 3 ML UPD VIAL UPD (18:02)
[2020-02-04] MEDS: Ferrous Sulfate 325 MG TAB PO (18:02)
[2020-02-04] MEDS: Hydrocortisone SOD SUC. 100 MG VIAL 50 MG IVP (18:04)
[2020-02-04] MEDS: Normal Saline Flush 10 ML SYR IVP (20:05)
[2020-02-04] MEDS: Melatonin 3 MG TAB 9 MG PO (21:34)
[2020-02-04] MEDS: Gabapentin 300 MG CAP 600 MG PO (21:34)
[2020-02-05] VITALS (38 sets, daily range): BP systolic 83–125; BP diastolic 38–87; PULSE 62–92; RESP 2–29; TEMP 36.6–37; O2SAT 91–100
[2020-02-05] MEDS: Hydrocortisone SOD SUC. 100 MG VIAL 50 MG IVP ×5 (00:18→23:45)
[2020-02-05] MEDS: Albuterol/Ipratropium 3 ML UPD VIAL UPD ×4 (00:19→23:47)
[2020-02-05] MEDS: Normal Saline Flush 10 ML SYR IVP ×6 (00:22→23:47)
[2020-02-05] MEDS: PIPERACILLIN/TAZO 3.375 GM in Normal Saline 50 ML IVPB ×4 (01:16→20:25)
[2020-02-05] MEDS: DOXYCYCLINE 100 MG in Normal Saline 100 ML IVPB (02:00)
[2020-02-05] MEDS: Normal Saline 1,000 ML 100 ML IV (02:00)
[2020-02-05 06:31] LABS: HCT 41.3 % (36.0-46.0); HGB 13.1 g/dL (12.0-15.5); Mean Corp. HGB Concentration 31.7 g/dL (32.0-36.0); Mean Corpuscular Hemoglobin 33.1 pg (27.0-33.0); Mean Corpuscular Volume 104.3 fL (80-95); Mean Platelet Volume 9.5 fL (8.0-11.0); Platelet Count 141 x1000/uL (130-400); RBC 3.96 m/cumm (4.00-5.20); White Blood Cell Count 17.14 k/cumm (4.4-10.8)
[2020-02-05 06:43] LABS: Anion Gap 12.5 mmol/L (3-11); BUN 22 mg/dL (7-18); C-Reactive Protein 19.04 mg/dL (0.0-0.3); CO2 23.5 mmol/L (21.0-32.0); Calcium 7.6 mg/dL (8.5-10.1); Chloride 107 mmol/L (98-107); Estimated GFR 30.86 (mL/min/1.73m2); Glucose 153 mg/dL (74-106); Magnesium 1.6 mg/dL (1.8-2.4); Potassium 4.1 mmol/L (3.5-5.1); Sodium 143 mmol/L (136-145)
[2020-02-05 07:22] LABS: Absolute Lymphocyte Count 0.69 k/cumm (1.2-3.4); Absolute Monocyte Count 0.51 k/cumm (0.11-0.7); Absolute Neutrophil Count 15.94 k/cumm (1.2-6.7); Atypical Lymphocytes % 1
[2020-02-05 07:23] LABS: Diff Comment Manual Differential; RBC Morphology Normal
--- NOTE | 2020-02-05 08:26 | PGE_ITS ---
Date of Service Date of service: 02/05/20 Time of Service: 12:10 Assessment and Plan Assessment and plan (1) Septic shock: Status: Resolved Assessment and plan: Exacerbated by acute adrenal insufficiency, as well, likely precipitated by RUL/RLL pneumonia with h/o pseudomonas and aspiration pneumonias in the past. Off pressors; shock resolved. Blood and sputum cultures are pending. I think it is ok to start to de-escalate antibiotics - will d/c doxycycline first. Obtain records from [facility] re past treatment of her resistant pseudomonas. For now, continue vancomycin, zosyn, aztreonam (for double coverage of pseudomonas). Start to taper stress dose steroids. IVF decreased. Transfer out of ICU. (2) Multifocal pneumonia: Status: Acute Assessment and plan: Present on admission. Now much improved. No longer requiring oxygen. Patient now states she never did have to have oxygen at home. She firmly denies this. H/o aspiration pneumonia and pseudomonas PNA. Obtain records from [facility], as above. Await cx, as above. Tx with abx, as above Continue scheduled and prn nebs. (3) Acute adrenal insufficiency: Status: Acute Assessment and plan: Continue stress dose steroids. (4) Pulmonary arterial hypertension: Status: Acute Assessment and plan: carefully monitor respiratory status while hydrating (5) Chronic respiratory failure with hypoxia: Status: Ruled-out Assessment and plan: Patient states she never required oxygen at home. ?chart error (6) Myasthenia gravis: Status: Chronic Assessment and plan: On chronic steroids/ receiving plasmaphoresis. Continue steroid taper. We might have to reschedule her plasmaphoresis. Will contact hematology office tomorrow. (7) Atrial fibrillation: Status: Chronic Assessment and plan: Paroxysmal - rate is controlled; continue eliquis. D/c cardiac monitoring. (8) Hx of deep venous thrombosis: Status: Resolved Assessment and plan: Continue eliquis (9) DVT prophylaxis: Status: Acute Assessment and plan: On therapeutic eliquis (10) Discharge planning issues: Status: Acute Assessment and plan: DNR/DNI. Transfer out of ICU to [facility] Subjective Subjective Interval history since last seen: Feels a lot better today. Denies dizziness, chest pain, shortness of breath, nausea. Off pressors since 9:30 last night, 93% on room air. Stage IV ulcer seen on coccyx on eval by nursing yesterday - wound care consult ordered. No Afib; in NSR with 1st degree block. Exam Narrative Exam Narrative: General: Very pleasant elderly female, sitting up in a chair, A&Ox3, looks much better than yesterday HEENT: EOMI, droopy bilateral eyelids, MMM Cardiovascular: RRR, no m/r/g Lungs: slightly coarse B breath sounds, but with significant improvement from yesterday Gastrointestinal: soft, nontender, nondistended Genitourinary: has a benitez Extremities: no e/c/c BLE's, warm feet, LUE AVF is dressed with pressure dressing Objective Objective Clinical Data: Abnormal lab results 02/04/20 02/04/20 02/04/20 Range/Units 11:15 11:15 12:45 WBC 14.47 H (4.4-10.8) k/cumm RBC (4.00-5.20) m/cumm MCV 104.0 H (80-95) fL MCH 33.5 H (27.0-33.0) pg MCHC (32.0-36.0) g/dL Absolute Neutrophils 10.91 H (1.2-6.7) k/cumm Absolute Lymphocytes (1.2-3.4) k/cumm Anion Gap (3-11) mmol/L BUN 26 H (7-18) mg/dL Creatinine 1.55 H (0.55-1.02) mg/dL Glucose (74-106) mg/dL Lactate 2.5 H* (0.6-1.4) mmol/L Calcium (8.5-10.1) mg/dL Magnesium (1.8-2.4) mg/dL AST 12 L (15-37) U/L ALT 13 L (14-59) U/L Alkaline Phosphatase 41 L (46-116) U/L C-Reactive Protein 1.36 H (0.0-0.3) mg/dL NT-Pro-B Natriuret Pep 443 H (<300) pg/mL Total Protein 6.1 L (6.4-8.2) g/dL 02/04/20 02/05/20 02/05/20 Range/Units 15:57 06:08 06:08 WBC 17.14 H (4.4-10.8) k/cumm RBC 3.96 L (4.00-5.20) m/cumm MCV 104.3 H (80-95) fL MCH 33.1 H (27.0-33.0) pg MCHC 31.7 L (32.0-36.0) g/dL Absolute Neutrophils 15.94 H (1.2-6.7) k/cumm Absolute Lymphocytes 0.69 L (1.2-3.4) k/cumm Anion Gap 12.5 H (3-11) mmol/L BUN 22 H (7-18) mg/dL Creatinine 1.60 H (0.55-1.02) mg/dL Glucose 153 H (74-106) mg/dL Lactate 2.0 H (0.6-1.4) mmol/L Calcium 7.6 L (8.5-10.1) mg/dL Magnesium 1.6 L (1.8-2.4) mg/dL AST (15-37) U/L ALT (14-59) U/L Alkaline Phosphatase (46-116) U/L C-Reactive Protein 19.04 H (0.0-0.3) mg/dL NT-Pro-B Natriuret Pep (<300) pg/mL Total Protein (6.4-8.2) g/dL Vital Signs Temperature 36.6 C 02/05/20 03:55 Temperature Source Temporal Artery Scan 02/04/20 16:51 Pulse 86 02/05/20 07:00 Pulse 86 02/05/20 07:00 Respiratory Rate 14 02/05/20 07:00 Respiratory Effort 02/05/20 06:45 Respiratory Depth Shallow 02/05/20 06:45 Respiratory Pattern Normal 02/05/20 06:45 Blood Pressure 103/46 L 02/05/20 07:00 Blood Pressure Mean 60 02/05/20 07:00 Pulse Oximetry 95 02/05/20 07:00 Oxygen Delivery Method Room Air 02/05/20 06:45 Oxygen Flow Rate 0 02/05/20 06:45 Pain Level 0 02/05/20 03:55 Intake & Output 02/04/20 02/04/20 02/05/20 11:59 23:59 11:59 Intake Total 1000 / 3358.230 2358.230 / 3358.230 1000.000 / 1000.000 Output Total 570 / 580 325 / 325 Balance 1000 / 2778.230 1788.230 / 2778.230 675.000 / 675.000 Weight 63.3 kg 60.9 kg 63 kg Intake: IV 1000 / 3258.230 2258.230 / 3258.230 1000.000 / 1000.000 Oral 100 / 100 Output: Urine 570 / 580 325 / 325 Other: Urine Color Light Dawna Pale Urine Appearance Clear Clots Comment eros applied to pink saji areas Stool Occult Blood Negative Stool Size Large Stool Characteristics Soft Formed Black Laboratory Results WBC 17.14 k/cumm (4.4-10.8) H 02/05/20 06:08 RBC 3.96 m/cumm (4.00-5.20) L 02/05/20 06:08 Hgb 13.1 g/dL (12.0-15.5) 02/05/20 06:08 Hct 41.3 % (36.0-46.0) 02/05/20 06:08 MCV 104.3 fL (80-95) H 02/05/20 06:08 MCH 33.1 pg (27.0-33.0) H 02/05/20 06:08 MCHC 31.7 g/dL (32.0-36.0) L 02/05/20 06:08 RDW 14.0 % (11.7-14.6) 02/05/20 06:08 Plt Count 141 x1000/uL (130-400) 02/05/20 06:08 MPV 9.5 fL (8.0-11.0) 02/05/20 06:08 Immature Gran % 0.0 % 02/05/20 06:08 Neutrophils % 91.0 02/05/20 06:08 Band Neutrophils % 2.0 % 02/05/20 06:08 Lymphocytes % 3.0 02/05/20 06:08 Atypical Lymphs % 1 02/05/20 06:08 Monocytes % 3.0 02/05/20 06:08 Eosinophils % 0.0 02/05/20 06:08 Basophils % 0.0 02/05/20 06:08 Absolute Neutrophils 15.94 k/cumm (1.2-6.7) H 02/05/20 06:08 Absolute Lymphocytes 0.69 k/cumm (1.2-3.4) L 02/05/20 06:08 Absolute Monocytes 0.51 k/cumm (0.11-0.7) 02/05/20 06:08 Absolute Eosinophils 0.00 k/cumm (0.0-0.7) 02/05/20 06:08 Absolute Basophils 0.00 k/cumm (0.0-0.2) 02/05/20 06:08 Differential Comment Manual differential 02/05/20 06:08 RBC Morphology Normal 02/05/20 06:08 ESR 9 mm/hr (0-30) 02/04/20 11:15 PT 9.7 sec (9.3-11.0) 02/04/20 11:15 INR 1.0 (0.9-1.1) 02/04/20 11:15 Sodium 143 mmol/L (136-145) 02/05/20 06:08 Potassium 4.1 mmol/L (3.5-5.1) 02/05/20 06:08 Chloride 107 mmol/L (98-107) 02/05/20 06:08 Carbon Dioxide 23.5 mmol/L (21.0-32.0) 02/05/20 06:08 Anion Gap 12.5 mmol/L (3-11) H 02/05/20 06:08 BUN 22 mg/dL (7-18) H 02/05/20 06:08 Creatinine 1.60 mg/dL (0.55-1.02) H 02/05/20 06:08 Estimated GFR/1.73 m2 30.86 (mL/min/1.73m2) 02/05/20 06:08 Glucose 153 mg/dL (74-106) H 02/05/20 06:08 Lactate 2.0 mmol/L (0.6-1.4) H 02/04/20 15:57 Calcium 7.6 mg/dL (8.5-10.1) L 02/05/20 06:08 Magnesium 1.6 mg/dL (1.8-2.4) L 02/05/20 06:08 Total Bilirubin 0.6 mg/dL (0.2-1.0) 02/04/20 11:15 AST 12 U/L (15-37) L 02/04/20 11:15 ALT 13 U/L (14-59) L 02/04/20 11:15 Alkaline Phosphatase 41 U/L (46-116) L 02/04/20 11:15 C-Reactive Protein 19.04 mg/dL (0.0-0.3) H 02/05/20 06:08 NT-Pro-B Natriuret Pep 443 pg/mL (<300) H 02/04/20 11:15 Total Protein 6.1 g/dL (6.4-8.2) L 02/04/20 11:15 Albumin 3.6 g/dL (3.4-5.0) 02/04/20 11:15 Procalcitonin 0.1 ng/mL 02/04/20 11:15 Urine Color Yellow (Yellow) 02/04/20 12:30 Urine Clarity Clear (Clear) 02/04/20 12:30 Urine pH 7.0 (5-8) 02/04/20 12:30 Ur Specific [place] 1.020 (1.005-1.025) 02/04/20 12:30 Urine Protein Negative mg/dL (Negative) 02/04/20 12:30 Urine Ketones Negative mg/dL (Negative) 02/04/20 12:30 Urine Blood Negative (Negative) 02/04/20 12:30 Urine Nitrite Negative (Negative) 02/04/20 12:30 Urine Bilirubin Negative (Negative) 02/04/20 12:30 Urine Urobilinogen 0.2 EU/dL (Up TO 0.2) 02/04/20 12:30 Ur Leukocyte Esterase Negative (Negative) 02/04/20 12:30 Urine Glucose Negative mg/dL (Negative) 02/04/20 12:30 Coronavirus (PCR) Cancelled 02/04/20 11:24
[2020-02-05] MEDS: Lidocaine 5% Patch 1 PATCH TD (08:38)
[2020-02-05] MEDS: Pantoprazole 40 MG VIAL IVP (08:38)
[2020-02-05] MEDS: predniSONE 5 MG TAB 10 MG PO (08:39)
[2020-02-05] MEDS: Folic Acid 1 MG TAB PO (08:39)
[2020-02-05] MEDS: Gabapentin 300 MG CAP 600 MG PO ×2 (08:39→20:25)
[2020-02-05] MEDS: Ferrous Sulfate 325 MG TAB PO (08:39)
[2020-02-05] MEDS: Methadone 5 MG TAB 2.5 MG PO (08:39)
[2020-02-05] MEDS: Multivitamin TAB 1 TAB PO (08:39)
[2020-02-05] MEDS: MAGNESIUM SULFATE 2 GM/50 ML BAG IVPB (08:43)
[2020-02-05] MEDS: Apixaban 2.5 MG TAB PO ×2 (08:43→20:25)
--- NOTE | 2020-02-05 10:14 | IN_ITS ---
Date of service: 02/05/20 Time of Service: 09:45 PT Notes Visit Reasons: SEPTIC SHOCK DUE PNA,ADRENAL INSUFFICIENCY Inpatient Physical Therapy Evaluation Date: February 05, 2020 Referring Doctor: Shreya Parker MD PT Orders: PT CONSULT: Limited ability Precautions: Fall risk Patient Profile/Admitting Diagnosis: Patient is an 84-year-old female admitted to [facility] secondary to septic shock exacerbated by acute adrenal insufficiency as well as precipitated by right upper lobe and right lower lobe pneumonia with history of Pseudomonas and aspiration Pseudomonas in the past. 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) Hx of deep venous thrombosis (Resolved) Lumbago (Resolved) Macrocytic anemia (Resolved) Malnutrition (Resolved) Myasthenia gravis (Chronic) Osteoporosis (Chronic) Peripheral neuropathic pain (Inactive) Post herpetic neuralgia (Resolved) Pulmonary arterial hypertension (Acute) PA pressure 35-40 mm Hg Sacral decubitus ulcer, stage IV (Inactive) Surgical History (Updated 02/04/20 @ 16:00 by Shreya Parker MD) Abdominal fistula (Resolved 08/17/18) repair by Dr Elizalde AV fistula (Inactive) RUE Gastrostomy complication (Resolved 08/17/18) gastric enteric fistula repair by Dr Elizalde Gastrostomy infection (Resolved 08/10/18) Dr Elizalde, excised tissue at old g-tube site and closed g-tube tract surgically. Gastrostomy Tube Placement (Resolved) H/O wisdom tooth extraction (Acute) S/P appendectomy (Acute) History/Home Situation: Lives with her daughter and in a single level 12 dwelling with 1 step into the home with railing Current Functional Limitations: Ambulation, functional mobilities, self ADLs Equipment Owned/DME: Front wheel walker Subjective: Patient states that she is feeling much better than at time of arrival at [facility]. Is anxious to begin physical therapy as she does not want to lose significant strength. Objective: General Observation: Patient already sitting in a chair finishing breakfast. She has a blood pressure cuff on her left forearm, IV in the left cubital fossa, IV in the right dorsal palm, telemetry, catheter. She has a AV fistula in the right upper extremity for plasma apheresis treatments biweekly at [facility]. Mental Status: Alert and oriented x3 Pain: 3/10 low back pain. Vital Signs: Monitored by nursing. Patient states she typically gets short of breath with distance walking. She is agreeable to walking short distance in the room for today's evaluation ROM: Right Upper Extremity: Within functional limits Left Upper Extremity: Within functional limits Right Lower Extremity: Within functional limits Left Lower Extremity: Within functional limits Strength: Right Upper Extremity: 4-/5 flexion and abduction right shoulder, 4/5 bicep tricep, good dance entertainer strength Left Upper Extremity: 4-/5 flexion and abduction left shoulder, 4/5 bicep tricep, good dance entertainer strength Right Lower Extremity: 4-/5 hip flexion, quads and hamstrings, 4-/5 abduction tested in sitting. 4+/5 adduction. Plantarflexion and dorsiflexion 4/5 Left Lower Extremity: 4-/5 hip flexion, quads and hamstrings, 4-/5 abduction tested in sitting. 4+/5 adduction. Plantar flexion dorsiflexion 4/5 Sensation: Reports intact sensation light touch bilateral lower extremities Bed Mobility/Transfers: Bed mobility not tested. Patient already up in chair at start of evaluation finishing breakfast. Sit to stand: Min assist x1 with front wheeled walker Stand to sit: Min assist x1 from front wheeled walker Gait: Patient ambulates 10 feet with front wheeled walker and contact-guard x1. She turns 180 degrees and then returns sitting in her chair. Nursing is notified. Balance: Static Sitting: Good Dynamic Sitting: Good Static Standing: Fair Dynamic Standing: Poor Special Tests: Mobility Limitations Standardized Measure [facility] AM-PAC 6 clicks Basic Mobility Inpatient Short Form: Raw Score: 16 standardized Score: 40.78 CMS Score: 54.16% CMS Modifier: CK Informed Consent/Education: Patient instructed in purpose of PT consult and plan of care. Assessment: Patient is a 84 year old female referred to physical therapy services with the diagnosis of septic shock due to pneumonia and adrenal insufficiency. Patient presents with clinical signs and symptoms consistent with current/admitting diagnoses that have resulted to mobility limitations, gait instability and generalized weakness demonstrated by the following impairment level findings: 1. Decreased strength to BLE hip and knee major muscle groups 2. Impaired standing balance 3. Impaired activity tolerance Impairments are contributing to the following functional limitations: 1. Increased dependence with transfers 2. Inability to safely ambulate without assistive device and physical assistance 3. Increase completion time for mobility ADL performance 4. Increased fall risk Impairments are contributing to the following functional limitations: AMPAC score 54.16%. Patient is assessed as a [] Low 06164 X moderate 55052 [] High 23684 complexity based on the following: History: See above Examination: See above Presentation: Evolving Decision Making: AMPAC score 54.16% Goals: Goals X1 week 1. Supine-Sit: Contact-guard x1 2. Sit-Supine: Contact-guard x1 3. Sit-Stand: Contact-guard x1 to front wheeled walker 4. Stand-Sit: Contact-guard x1 from front wheeled walker 5. Bed-Chair: Contact-guard x1 with front wheeled walker 6. Chair-Bed: Contact-guard x1 with front wheeled walker 7. Gait: 50 feet with contact-guard x1 with front wheeled walker] 8. Balance improved standing static and dynamic balance Plan of Care/Treatment Plan: 1-2x/day, 7 days/week x 1 week. Plan of care has been reviewed with the [employer] ARCH[employer] providing the service under Physical Therapy direction. Initiate Physical Therapy intervention for strengthening, bed mobility, transfers, gait, stairs, balance training, use of assistive device. DISCHARGE RECOMMENDATIONS: Recommend discharge to home with home health PT upon discharge from [facility] H TREATMENT CODE/TIME: 09910, 30 minutes 9 45-10 15 Disclaimer: This note was created using [employer] voice recognition software. It was reviewed for major content. However, there may be multiple small discrepancies and errors due to the voice recognition aspects of the software. Thank you for this referral Dirk Albarran PT,DPT
--- NOTE | 2020-02-05 10:33 | PHA.ADMREV ---
Pharmacy Clinical Review - Admission Clinical Review (Last Updated 02/04/20 @ 16:24 by Shreya Parker MD) Discharge planning issues (Acute) Acute adrenal insufficiency (Acute) Multifocal pneumonia (Acute) Septic shock (Acute) Chronic respiratory failure with hypoxia (Acute) Pulmonary arterial hypertension (Acute) Sepsis (Acute) DVT prophylaxis (Acute) Sulfa (Sulfonamide Antibiotics) Allergy (Verified 02/04/20 13:36) Hives Height 5 ft 8 in Weight 63 kg - Renal Dosing Renal Dosing: BUN 22 mg/dL (7-18) H 02/05/20 06:08 Creatinine 1.60 mg/dL (0.55-1.02) H 02/05/20 06:08 Medications needing adjustments: Reviewed (CRCL ~26ML/MIN) - Anticoagulation Anticoagulation: Hgb 13.1 g/dL (12.0-15.5) 02/05/20 06:08 Hct 41.3 % (36.0-46.0) 02/05/20 06:08 Plt Count 141 x1000/uL (130-400) 02/05/20 06:08 INR 1.0 (0.9-1.1) 02/04/20 11:15 Creatinine 1.60 mg/dL (0.55-1.02) H 02/05/20 06:08 DVT Prohphylaxis: Reviewed Medications: Apixaban Therapeutic Anticoagulation: Reviewed Medications: Apixaban - Opiate Usage Evaluate Pain Scale/Pains Meds: Reviewed (0/10, PO pain meds ordered,) Scheduled Bowel Reg ordered if on Opiates?: Yes ( bowel meds ordered PRN ) - Relevant Labs ESR 9 mm/hr (0-30) 02/04/20 11:15 Sodium 143 mmol/L (136-145) 02/05/20 06:08 Potassium 4.1 mmol/L (3.5-5.1) 02/05/20 06:08 Chloride 107 mmol/L (98-107) 02/05/20 06:08 Magnesium 1.6 mg/dL (1.8-2.4) L 02/05/20 06:08 C-Reactive Protein 19.04 mg/dL (0.0-0.3) H 02/05/20 06:08 Electrolytes, C-Reactive P, ESR: Reviewed (Mag bolus ordered) - Antimicrobial Stewardship Antibiotic appropriateness: Reviewed (aztreonam,doxy,vanco,pip/tazo. provider expects to stop doxy and possibly vanco today) Surgical Abx d/c within 24 hr: N/A Culture review/Resistance: Reviewed (flu neg, BC pending) - DM Control DM Control: Glucose 153 mg/dL (74-106) H 02/05/20 06:08 Insulin Dosing: N/A - Heart Failure/ND Heart Failure/ND: NT-Pro-B Natriuret Pep 443 pg/mL (<300) H 02/04/20 11:15 EF%, FAHAD's, B-Blockers, Diuretics: N/A - BP Control BP Control: Blood Pressure [Left Arm] 103/48 Blood Pressure 111/43 Blood Pressure 103/46 Blood Pressure 124/59 Blood Pressure 117/53 Blood Pressure 88/49 Blood Pressure 83/41 Blood Pressure 90/38 Blood Pressure 105/57 Blood Pressure 96/44 Blood Pressure 103/48 Blood Pressure 106/45 Blood Pressure 105/52 Blood Pressure 88/48 Blood Pressure 97/49 Blood Pressure 97/55 Blood Pressure 93/58 Blood Pressure 104/69 Blood Pressure 95/75 Blood Pressure 99/52 Blood Pressure 113/87 Blood Pressure 95/53 Blood Pressure 84/49 Blood Pressure 111/53 Blood Pressure 110/66 - QTc Review If Elevated: N/A (429) - IV to PO Switch IV Medications: Reviewed (IV abx and IVF, PO pain meds) - Home Meds Home Med List reviewed: Reviewed - Current meds Current Medication Order Review: Reviewed (Pt has myasthenia gravis and is treated with plasmaphoresis and steroids.watch for abx narrowing,)
[2020-02-05] MEDS: VANCOMYCIN 750 MG in Normal Saline 250 ML 166.667 MG IV (11:07)
--- NOTE | 2020-02-05 13:40 | INITIAL_ITS ---
- If Service Date Differs Date of service: 02/05/20 Time of Service: 13:40 Care Management Initial Assess REASON FOR HOSPITALIZATION:: Septic shock, adrenal insufficiency, RUL and RLL pneumonia PAST MEDICAL HISTORY/PAST SURGICAL HISTORY:: A-fib,chronic opiods, CHF, B12 deficiency, compression fx spine, decubitus ulcer sacrum, macrocytic anemia, lumbago, malnutrition, myasthenia, osteoperosis, herpetic neuralgia. Surgical hx: G-tube placement. PREVIOUS FUNCTIONAL STATUS/SOCIAL/FAMILY SUPPORTS:: Tanja resides in [place] with her son and daughter in law. She had previously been living in [place] when her a year ago. At that time, her son and daughter in law asked her to move in with them and she agreed. Tanja has three additional adult children who do not live locally. 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 She reports that her family assists her with bathing, dressing and food preparation. She is independent with her medications. She utilizes a walker to ambulate and relies on [facility] and family for transportation. CURRENT FUNCTIONAL STATUS:: Tanja is alert and engaged with CM during assessment. She states she feeling better she is unsure if she wants her treatment this Thursday at [facility]. She is worried about being exposed to illness. ADVANCE DIRECTIVES:: On file at [facility]. Frankie Carpio (son) health care agent Has patient been provided with information about the portal?: Yes Did the patient sign up for the portal?: No CODE STATUS:: DNR/DNI INSURANCE COVERAGE / FINANCIAL ISSUES:: Blue Cross Blue [facility], Medicare. CURRENT HOME/COMMUNITY SERVICES/EQUIPMENT:: Tanja has home health services for wound treatment daily and She utilzes a walker to ambulate. She goes to [facility] where her neurologist is and receives her Plasmapheresis. PRIMARY CARE PHYSICIAN:: Maribell Choi. POTENTIAL DISCHARGE NEEDS:: Follow up scheduled prior to discharge with primary care provider, resumption of home health servcies. PATIENT/FAMILY EDUCATION NEEDS:: Discharge education, any limitations, and follow up plan of care. Ask Me Three discussion. ANTICIPATED BARRIERS TO DISCHARGE:: No anticipated barriers to discharge. TRANSPORTATION:: Tanja will transport via private vehicle with her family PLAN:: Tanja will discharge home when medically ready per MD. Patient will discharge home, likely with increased home health services and follow up with her PCP. CM will continue to offer support to patient, family and care team regarding discharge planning and disposition.
--- NOTE | 2020-02-05 13:48 | WOUNDCONS ---
Wound Initial Evaluation Narrative: Pt is a pleasant 84 Year old female, agreeable to wound consult for Stage 4 Pressure Injury on sacrum. Chart reviewed, including pertinent labs, H&P, and medications. Pt has had this Chronic stage 4 pressure injury for about 4 years. Is currently followed by home health for wound care. Current tx plan since 12/16/2019 has been as follows Cleanse wound with dermal wound cleanser; dampen a small piece of p[good 1/4 inch nu-gauze wick with Daikens solution; lightly fluff into open area with Q-tip or forcep. Apply calmoseptine to protect surrounding intact skin from maceration. Cover with 4x4 foam island. Change daily. Pt reports she thinks wound has improved some over the last few months. Pt reports sensitivity to skin prep, that it makes her itchy, and states calmoseptine works well for her with no adverse reaction. - Wound Sacrum Pressure Ulcer Stage: IV Wound General Appearance: Reddened (periwound skin) Wound Bed Greatest Portion: Pale [place] (non-granulating tissue) Wound Surrounding Tissue Appearance: Bright Red, Undermined (undermining noted around entire wound edge, greatest depth of 0.6cm noted @ 6:00), Edges Rolled ( appear rolled, difficult to tell d/t maceration), Macerated (macerated saji wound skin and wound edges. ) Percent of Wound Bed Granulated/Red: 100 (pale pink, non granulating) Wound Length: 0.5 cm Wound Width: 1 cm Wound Depth: 1 cm Wound Drainage Amount: None (sacral mepilex applied by night nurse, no drainage noted.) Wound Drainage Odor: None/Absent Wound Drainage Description: No drainage - Circulation, Sensation, Motion Peripheral Pulse Strength: Normal Capillary Refill: Less than 3 seconds Sensation Description: Within Normal Limits (denies pain @ wound site, tolerated assesment well) Skin Temperature: Warm Skin Color: Pale - GREGORY Comment:: not indicated - Pain Pain Level: 0 Pain Scale Used: Adult - Treatment/Dressing Change Topicals/Ointments: None (calmoseptine placed over reddened periwound skin but NOT on macerated skin.) Cleanse With: Cleanser with Surfactant Dressing Types: Collagen (Promagran Prism, Mepilex w/Border - Recomendation Recomendation:: Recommend changing current Tx plan to as follows: Cleanse wound with Anasept wound cleanser. Pat dry. Apply calmoseptine to reddened periwound skin. Cut promogran dressing in half. Moisten 1/2 of promogran dressing w/NS until gel forms. Place into wound with cotton swab. Cover with foam w/border. Change every other day and PRN.
[2020-02-05] MEDS: Normal Saline 1,000 ML 60 ML IV (14:24)
[2020-02-05] MEDS: Patch Removal 1 EACH TP (20:27)
[2020-02-05] MEDS: Melatonin 3 MG TAB 9 MG PO (20:58)
[2020-02-06] VITALS (10 sets, daily range): BP systolic 109–154; BP diastolic 59–79; PULSE 79–103; RESP 1–20; TEMP 36–37.1; O2SAT 92–99
[2020-02-06] MEDS: PIPERACILLIN/TAZO 3.375 GM in Normal Saline 50 ML IVPB ×4 (01:46→20:11)
[2020-02-06] MEDS: VANCOMYCIN 750 MG in Normal Saline 250 ML 167 MG IV (03:21)
[2020-02-06] MEDS: Bisacodyl 10 MG SUPP PR (06:08)
[2020-02-06] MEDS: Hydrocortisone SOD SUC. 100 MG VIAL 50 MG IVP ×3 (06:08→22:24)
[2020-02-06] MEDS: Normal Saline Flush 10 ML SYR IVP ×4 (06:09→23:39)
[2020-02-06] MEDS: Albuterol/Ipratropium 3 ML UPD VIAL UPD ×2 (06:09→13:15)
[2020-02-06 07:18] LABS: Abs Immature Grans 0.05 k/cumm (0.0-0.09); Absolute Neutrophil Count 17.37 k/cumm (1.2-6.7); HCT 38.4 % (36.0-46.0); HGB 12.2 g/dL (12.0-15.5); Immature Grans % 0.3 %; Lymphocytes % 1.5; Mean Corp. HGB Concentration 31.8 g/dL (32.0-36.0); Mean Corpuscular Hemoglobin 32.7 pg (27.0-33.0); Mean Corpuscular Volume 102.9 fL (80-95); Mean Platelet Volume 10.2 fL (8.0-11.0); Monocytes % 2.2; Platelet Count 150 x1000/uL (130-400); RBC 3.73 m/cumm (4.00-5.20); RBC Distribution Width 14.3 % (11.7-14.6); White Blood Cell Count 18.09 k/cumm (4.4-10.8)
[2020-02-06 07:19] LABS: Absolute Lymphocyte Count 0.27 k/cumm (1.2-3.4)
[2020-02-06 07:34] LABS: Anion Gap 12.8 mmol/L (3-11); BUN 23 mg/dL (7-18); C-Reactive Protein 22.81 mg/dL (0.0-0.3); CO2 22.2 mmol/L (21.0-32.0); CREATININE 1.38 mg/dL (0.55-1.02); Calcium 8.1 mg/dL (8.5-10.1); Chloride 109 mmol/L (98-107); Glucose 114 mg/dL (74-106); Magnesium 2.2 mg/dL (1.8-2.4); Potassium 3.5 mmol/L (3.5-5.1); Sodium 144 mmol/L (136-145)
[2020-02-06] MEDS: Acetaminophen 325 MG TAB PO ×2 (08:30→16:26)
[2020-02-06] MEDS: Pantoprazole 40 MG VIAL IVP (08:30)
[2020-02-06] MEDS: Methadone 5 MG TAB PO (08:31)
[2020-02-06] MEDS: Apixaban 2.5 MG TAB PO ×2 (08:31→20:06)
[2020-02-06] MEDS: Ferrous Sulfate 325 MG TAB PO ×2 (08:31→17:57)
[2020-02-06] MEDS: predniSONE 5 MG TAB 10 MG PO (08:32)
[2020-02-06] MEDS: Gabapentin 300 MG CAP 600 MG PO ×2 (08:32→20:06)
[2020-02-06] MEDS: Folic Acid 1 MG TAB PO (08:32)
[2020-02-06] MEDS: Multivitamin TAB 1 TAB PO (08:32)
[2020-02-06] MEDS: Lidocaine 5% Patch 1 PATCH TD (08:34)
--- NOTE | 2020-02-06 10:00 | EVALE_ITS ---
Date of service: 02/06/20 Time of Service: 10:00 Speech Therapy Evaluation Note: Speech-Language/Swallowing Pathology Clinical Dysphagia Evaluation Medical Diagnosis: Septic Shock, Multifocal Pneumonia, Acute Adrenal Insufficiency Therapy Diagnosis: Dysphagia, Unspecified Current Level of Care: Inpatient Subjective: Pt was sitting upright in her chair washing up when [facility] [employer] arrived. She denied any difficulty with swallowing, but agreed to a clinical assessment today. Pt was pleasant and provided good insight regarding hx and deficits. Per consult with nsg, pt is managing her current diet well, including taking medications whole with water. Pertinent Medical/Swallowing History, Previous Level of Function, Current Level of Function: Per H&P 02/04/20: ?Ms. Carpio is an 84 year old female with PMHx of myasthenia gravis, on chronic prednisone therapy (most recent dose 10 mg daily) as well as plasma apahresis treatments biweekly at [facility] via her RUE AV fistula, h/o several multi-drug resistant pseudomonas pneumonias, h/o Afib and DVT, on eliquis, question of dysphagia with mention of prior aspiration pneumonitis, and chronic pain on methadone 5 mg PO daily, who was found to be confused and to appear ill today by her daughter in law, who in turn called home health nursing, who then called EMS. The patient was found to be rather hypotensive and initiated on levophed and aggressive IVF. In the ED, she was also given stress dose steroids. Her workup revealed RUL/RLL PNA. She was initiated on broad spectrum antibiotics, and we were asked to admit the patient for further care. At this point, the patient states she already feels a lot better. Her MAPs while on pressors are in the 60's. She is saturating 95% on 2L. She was able to produce green sputum when working with respiratory therapy. Until coming to the hospital, the patient states she did not have a fever, runny nose, sore throat or a cough. She thinks she may have had some difficulty swallowing. She denies travel out of state or sick contacts. She is being admitted to the ICU for septic shock and acute adrenal insufficiency due to bacterial pneumonia.? As of yesterday (02/05/20), pt?s septic shock had resolved and her pneumonia had much improved. Pt reports with me today that she feels her pneumonia symptoms cleared rather quickly and that she has not had any recent trouble swallowing, stating that the only time she experienced symptoms of dysphagia was when she was first being diagnosed with myasthenia gravis. She explains that she does not experience mouth fatigue or weakness, even over time during meals. Living Environment/Support: Pt lives with her son and describes excellent family support and care. Precautions: Fall risk, heart healthy diet. Medications: Please see MAR. Allergies: Sulfa. Barriers to Learning: None identified today. Respiratory Function: WFL during assessment. Supplemental Oxygen: None during assessment. Posture/Positioning: Adequate. Prior Diet: Regular, thin liquids. Current Diet: Regular, thin liquids, heart healthy. ORAL MECHANISM EXAMINATION Dentition: Upper and lower natural, with upper bridge. Oral Hygiene: Pt had completed oral care prior to [facility] arriving. Presence of white material on tonsils observed, recommend nurse assess. Oral Structures: Asymmetrical soft palate elevation. Strength: WFL for age. Range of Motion: Mildly reduced. Coordination: WFL. Consistencies Tested: Mechanical soft, regular, thin liquids. Self-Feeding/Level of Assistance: Independent with feeding. W[facility] provided set-up support only. Oral Phase: WFL. Adequate mastication of both soft and regular textures observed. Pt utilized both lingual and finger sweep to clear any residue in her teeth or gums. Minimal oral residue observed post swallows, adequately cleared with repeat swallows and liquid wash. Pt managed sips of thin liquids from a straw and open cup, both single and consecutive, without difficulty. Pharyngeal Phase: WFL. Hyolaryngeal elevation/excursion present upon palpation following bolus hold, suspected to be somewhat reduced, though no overt clinical s/s of aspiration observed today. Pt denies any globus or difficulty clearing solids or liquids. No overt clinical s/s of aspiration seen. Esophageal Phase: Pt denies reflux or symptoms. No overt symptoms seen today. S/S Aspiration: No clinical s/s of aspiration observed during PO trials today. Pt/Caregiver/Staff Education: Although pt denies any effects of her myasthenia gravis on eating, she was advised that if experiencing fatigue, she can reduce her portions and eat smaller meals more frequently throughout the day to allow for rest and reduce fatigue risks. She was also educated on modifying the texture to reduce mastication demands if experiencing fatigue. Staff were informed of outcomes of today?s dysphagia evaluation and recommendation to continue current diet, as no significant deficits were demonstrated. Staff were also educated on recommended strategies (per above) if needed. Nurse was informed of presence of white material on tonsils and will communicate to MD. Assessment: Pt is an 84 year-old female with pmhx of myasthenia gravis, pneumonia, chronic respiratory failure with hypoxia, and hypertension, who was referred for a clinical swallow assessment given reported hx of dysphagia with possible aspiration component. Pt denies any difficulty swallowing and that she only had symptoms when first diagnosed with myasthenia gravis, but feels it does not impact her eating anymore. PO trials conducted today, both for thin liquids and up to regular textures, reveal that pt is able to manage her current diet without overt clinical s/s of aspiration. Although silent aspiration cannot be ruled out via clinical bedside assessment, aspiration is not highly suspected at this time. Pt to continue with regular textures and thin liquids. No further swallow therapy indicated at this time. Staff are advised to contact [facility] department with any further questions or concerns. Rehab Potential: N/A-No further skilled [facility] services indicated at this time. Pt Goal: To get better. PLAN Discharge Plan: Discharge pt from skilled [facility] services today. SWALLOWING RECOMMENDATIONS Solids: Regular. Liquids: Thin. Medication Administration: Whole with water. Level of Assistance/Supervision: None required at this time. Pt may need set-up support. Strategies/Adaptations/AE: Consider smaller, more frequent meals if pt experiences fatigue. Can also offer mechanical/soft/moist foods to reduce mastication demands if needed. Posture/Positioning Needs: Ensure upright posture. Out of bed for all meals and snacks. Remain upright at least 30 minutes after eating. Recommended Referrals/Procedures: None indicated at this time. Charge Code: [id number] Swallow Evaluation Time In: 10:00 am Time Out: 10:45 am Total Time: 45 minutes
--- NOTE | 2020-02-06 10:29 | OTIE_ITS ---
Occupational Therapy Notes Inpatient Occupational Therapy Evaluation Date: 02/06/20 Referring Doctor: Shreya Parker MD OT Orders: Non-Urgent- Limited Ability Precautions: Fall, standard, DNR/DNI PATIENT PROFILE/ADMITTING DIAGNOSIS: Pt is an 84 year old female who presented to the ER on 02/04/20 for AMS/LOC. 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) Hx of deep venous thrombosis (Resolved) Lumbago (Resolved) Macrocytic anemia (Resolved) Malnutrition (Resolved) Myasthenia gravis (Chronic) Osteoporosis (Chronic) Peripheral neuropathic pain (Inactive) Post herpetic neuralgia (Resolved) Pulmonary arterial hypertension (Acute) PA pressure 35-40 mm Hg Sacral decubitus ulcer, stage IV (Inactive) Surgical History (Updated 02/04/20 @ 16:00 by Shreya Parker MD) Abdominal fistula (Resolved 08/17/18) repair by Dr Elizalde AV fistula (Inactive) RUE Gastrostomy complication (Resolved 08/17/18) gastric enteric fistula repair by Dr Elizalde Gastrostomy infection (Resolved 08/10/18) Dr Elizalde, excised tissue at old g-tube site and closed g-tube tract surgically. Gastrostomy Tube Placement (Resolved) H/O wisdom tooth extraction (Acute) S/P appendectomy (Acute) Social History/Home Situation: Pt reports that she lives in [place] with her son and his family. She has no stairs in the home that she needs to use and a ramp to enter. Pt reports that she was previously receiving OT from home health. And that she has a step in tub with removable shower head. PTs baseline (I) in ADLs per pt reports is as follows: Dressing (I) both sitting in chair and standing with FWW, family (A) as needed Eating (I), has (A) with cooking meals Grooming (I) sitting in chair Toileting (I) with use of grab bars Bathing (I) in step in tub with removable shower head while sitting in shower chair, family (A) as needed. Medications (I) Functional Mobility with FWW RCT/family for community mobility Bi-weekly trips to [facility] for plasma aphasis tx via (R) UE fistula per pts EMR. Equipment owned/DME: FWW, Grab bars, shower chair, removable shower head. SUBJECTIVE: Pt was sitting in chair when OT arrived.She reports that she would like to return home as soon as possible to self quarantine herself. She notes that she is feeling better and didn't realize she was even sick prior. OBJECTIVE: General Observation: Pleasant and closes her eyes multiple times throughout the session when speaking with OT. Mental Status: A&O x3 ROM: RUE Flexion limited 100*, elbow WFL L UE Flexion limited to 80* STRENGTH: RUE 3+/5 throughout globally LUE 3+/5 throughout globally FUNCTIONAL MOBILITY/ADLS: GROOMING sitting in chair with max (A) set up and clean up, pt able to brush teeth (I) with ideal technique. Bathing She is able to demonstrate ideal ROM required for bathing routine, she does get (A) with this at baseline and notes that she would like to perform this later today. She has AROM required to perform this with min (A) for (B) LE. BALANCE: Static sitting Good Dynamic sitting Good SPECIAL TESTS: Daily Activity Limitations Standardized Measure [facility] AM -PAC ?6 clicks? Daily Activity Inpatient Short Form: Raw score: 20 Standardized score: 42.03 CMS score: 38.32% INFORMED CONSENT/EDUCATION: Pt instructed in purpose of OT Consult and plan of care. 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 Patient states that she has great support at home and remains as (I) as possible. When she needs (A) her son, DIL and grandsons help her. She notes that she didn't even know she was sick until they brought her in. She does not feel that she will require OT services at this time. OT feels that pt would benefit from returning home with services when medically cleared per MD. Patient is assessed as a Low 67459 complexity based on the following: History: See PMHX Examination: See functional limitations noted above Presentation: Evolving Decision Making: AMPAC score 20 GOALS N/A pt was seen for OT consult only. PLAN OF CARE/TREATMENT PLAN: 1x/day, 5 days/ week x 1week Initiate Occupational Therapy Services for bathing, dressing, grooming, toileting, eating, transfer training. DISCHARGE RECOMMENDATIONS Home with family when medically cleared per MD TREATMENT TIME/MINUTES/CODES [id number] 17 minutes (09:25)
--- NOTE | 2020-02-06 10:31 | PDOC.CMPRO ---
- If Service Date Differs Date of service: 02/06/20 Time of Service: 10:31 Care Management Progress Note S/O:Tanja was sitting up in a chair when CM met with her. She was pleasant and engaged readily with CM. Tanja stated that she is feeling much better. She said that she has had pneumonia several times in the past and has never recovered this quickly. Tanja talked about her treatments at [facility] for her autoimmune disease (Myasthenia gravis). Tanja shared that she has an appointment at [facility] for plasmaphoresis and an infusion on Thursday. She has been told that at this point, [facility] is still providing transportation but is unsure if that will continue as the week progresses. Tanja also shared that many of her family members are in education and are on a 2 week shut down, so likely will be able to transport her if needed. A: Tanja is an 84 year old woman admitted with sepsis on 02/04/20 P: Tanja will discharge home when medically ready per MD. Patient will discharge home, likely with increased home health services and follow up with her PCP. CM will continue to offer support to patient, family and care team regarding discharge planning and disposition.
--- NOTE | 2020-02-06 10:31 | W.NUTCONSULT ---
Date of service: 02/06/20 Time of Service: 10:32 Nutritional Consult ASSESSMENT: 84 year old female admitted with sepsis, PNA, acute adrenal insufficiency. PMH: myasthenia gravis, Hx of aspiration PNA, stage 4 sacral pressure wound. Meds include 325 mg FeS04, 1 mg folic acid, prednison. Labs reviewed. Has brought Boost in from home as does not like Ensure products. Drinks 1-2 Boosts daily at home and currently. Following Heart Healthy Diet with poor intake <25%. reports no difficulty with regular texture, no coughing noted at meals by nursing. Reports stable appetite and weight prior to admission. Estimated Needs: [id number] (30-35 kcal/kg), 75-88 grams protein (1.2-1.4 g protein/kg), 2205 ml fluid (30 ml/kg). Current intake with Boost (8 oz BID) meeting <50% of nutrient needs. Elevated nutrient needs in view of skin breakdown. Tanja is at risk for moderate malnutrition in context of chronic illness (pressure wound) in view of inadequate nutrient intake to support lean body mass and optimal wound healilng. Recommend providing Stephen (1 packet) TID to supplement protein intake (provides 45 g protein/200 kcal), MVI, 500 mg Vitamin C and 220 mg Zince Sulfate to support wound healing. Tanja to continue with Boost (8 oz) BID. RIGHT OF WAY MAINTENANCE SUPERVISOR consult pending. NUTRITIONAL DIAGNOSIS: Moderate malnutrition in view of chronic illness Elevated nutrient needs in view of increased needs for optimal wound healing Inadequate vitamin/mineral intake in view of increased needs for optimal wound healing INTERVENTION: Liberalize Diet to Regular Diet, texture per RIGHT OF WAY MAINTENANCE SUPERVISOR recommendations MVI, 500 mg Vitamin C , 220 mg zinc sulfate q d Stephen- 1 packet TID MONITORING AND EVALUATION: po intake, labs, wieghts, wound update Time Spent in Nutritional Counseling and Treatment: 15 min spent face to face
--- NOTE | 2020-02-06 11:45 | PT.INTREAT ---
Date of service: 02/06/20 Time of Service: 11:45 PT Notes Visit Reasons: SEPTIC SHOCK DUE PNA,ADRENAL INSUFFICIENCY Inpatient Physical Therapy Treatment Note [facility] Date: 02/06/2020 PRECAUTIONS: Fall. Standard. Activity as tolerated. SUBJECTIVE: Patient reports feeling significantly better than when she first came in. She states that her n3ext plasmaphareis at [facility] is on Thursday but she does not know when she will be able to go home as she is currently on IV antibiotics right now. She felt a little tired with walking out of her room stating that she may have done the walk too quickly. OBJECTIVE: Patient on room air. In no apparent respiratory distress. Mild breathlessnes seen after ambulation actyivity. PAIN: Denied. BED MOBILITY/TRANSFERS Sit-stand: SBA Stand-sit: SBA Bed-Chair: SBA Chair-bed: SBA GAIT Assistive Device: FWW Weight bearing: FWB Assist: SBA Distance: 120 feet Deviation: Patient chronically has walked with trunk flexed forward due to thoracic kyphosis (Dowager's Hump from Myasthenia Gravis) VITALS: Oxygen saturation ranged from 94% through 97% on room air. THEREX: Seaetd hip flexion exercises and LAQs x 10 Deep breathing exercises ASSESSMENT: Patient demonstrating much improved mobility independence and activity tolerance requring just SBA as opposed to when she was first evalauted (minimal assist). Óscar expressed some minimal SOB right after walking about 60 feet stating that she may have walked too quickly. SOB subsided with rest. PLAN: Continue with PT POC as initially established to facilitate return to home. TREATMENT CODE/TIME: 19010 x 30 minutes beginning at 11:45 AM.
--- NOTE | 2020-02-06 11:50 | W.PM.PROGNOT ---
Date of Service Date of service: 02/06/20 Time of Service: 11:50 Assessment and Plan Assessment and plan (1) Septic shock: Status: Resolved Assessment and plan: Exacerbated by acute adrenal insufficiency, as well, likely precipitated by RUL/RLL pneumonia with h/o pseudomonas and aspiration pneumonias in the past. Off pressors; shock resolved. Blood cultures are negative. Sputum C&S is positive for GNR - I suspect it is pseudomonas. As above, will try to obtain sensitivities for zosyn. D/c vancomycin. Keep zosyn/aztreonam on for now. Continue to taper stress dose steroids. D/c IVF. (2) Multifocal pneumonia: Status: Acute Assessment and plan: Present on admission. Now much improved. No longer requiring oxygen. Patient now states she never did have to have oxygen at home. She firmly denies this. No evidence for aspiration, per speech therapy. Sputum C&S with GNR - likely pseudomonas, awaiting sensitivities. Continue zosyn/aztreonam until they are known. Will require a longer than normal course of abx. Continue scheduled and prn nebs. (3) Acute adrenal insufficiency: Status: Acute Assessment and plan: Continue to taper stress dose steroids. (4) Pulmonary arterial hypertension: Status: Chronic Assessment and plan: Euvolemic. Fluids getting d/c'ed. (5) Chronic respiratory failure with hypoxia: Status: Ruled-out Assessment and plan: Patient states she never required oxygen at home. ?chart error (6) Myasthenia gravis: Status: Chronic Assessment and plan: On chronic steroids/ receiving plasmaphoresis. Continue steroid taper. We are contacting [facility] to let the neuro/heme offices know that the patient is sick and needs rescheduling of appointment. (7) Atrial fibrillation: Status: Chronic Assessment and plan: Paroxysmal - rate is controlled; continue eliquis. (8) Hx of deep venous thrombosis: Status: Resolved Assessment and plan: Continue eliquis (9) Thrush, oral: Status: Acute Assessment and plan: Start Nystatin swish and swallow (10) DVT prophylaxis: Status: Acute Assessment and plan: On therapeutic eliquis (11) Discharge planning issues: Status: Acute Assessment and plan: DNR/DNI. Improving rapidly. Depending on whether or not neurology feels that fluoroquinolones cannot be given to this patient, she could potentially be discharged home in 48 hours. Subjective Subjective Interval history since last seen: Ms Carpio feels a lot better today. She states she has never gotten better this fast before. Denies dizziness, chest pain, shortness of breath, nausea. States it does not hurt to swallow. Passed a swallow eval this morning. Case discussed with [facility] ID: must get zosyn sensitivities on sputum C&S. I asked lab to please do this. If sensitive to zosyn, then can d/c aztreonam. WIll also verify with neurology how contraindicated fluoroquinolones are. Exam Narrative Exam Narrative: General: Very pleasant elderly female, sitting up in a chair, A&Ox3, looks even better than yesterday HEENT: EOMI, bilateral eyelids less droopy, MMM, white spots on tonsils Cardiovascular: RRR, no m/r/g Lungs: improved coarse breath sounds B, better than yesterday Gastrointestinal: soft, nontender, nondistended Genitourinary: has a benitez Extremities: no e/c/c BLE's, warm feet Objective Objective Clinical Data: Abnormal lab results 02/06/20 02/06/20 Range/Units 06:20 06:20 WBC 18.09 H (4.4-10.8) k/cumm RBC 3.73 L (4.00-5.20) m/cumm MCV 102.9 H (80-95) fL MCHC 31.8 L (32.0-36.0) g/dL Absolute Neutrophils 17.37 H (1.2-6.7) k/cumm Absolute Lymphocytes 0.27 L (1.2-3.4) k/cumm Chloride 109 H (98-107) mmol/L Anion Gap 12.8 H (3-11) mmol/L BUN 23 H (7-18) mg/dL Creatinine 1.38 H (0.55-1.02) mg/dL Glucose 114 H (74-106) mg/dL Calcium 8.1 L (8.5-10.1) mg/dL C-Reactive Protein 22.81 H (0.0-0.3) mg/dL Vital Signs Temperature 37.1 C 02/06/20 03:46 Temperature Source Tympanic 02/06/20 03:46 Pulse 80 03/16/20 06:39 Pulse Rhythm Regular 02/06/20 03:38 Pulse 86 02/05/20 13:00 Respiratory Rate 18 02/06/20 06:39 Respiratory Effort 02/06/20 03:38 Respiratory Depth Normal 02/06/20 03:38 Respiratory Pattern Normal 02/06/20 03:38 Blood Pressure 114/60 02/06/20 03:46 Blood Pressure Mean 64 02/05/20 13:00 Blood Pressure Position Sitting 02/05/20 10:40 Pulse Oximetry 96 02/06/20 06:39 Oxygen Delivery Method Room Air 02/06/20 06:09 Oxygen Flow Rate 0 02/06/20 06:09 Pain Level 4 02/06/20 08:31 Comment 02/05/20 16:28 Intake & Output 02/05/20 02/05/20 02/06/20 11:59 23:59 11:59 Intake Total 1210.000 / 2808.000 1598 / 2808.000 790 / 790 Output Total 325 / 1175 850 / 1175 250 / 250 Balance 885.000 / 1633.000 748 / 1633.000 540 / 540 Weight 63 kg Intake: IV 1150.000 / 2498.000 1348 / 2498.000 550 / 550 Oral 60 / 310 250 / 310 240 / 240 Output: Urine 325 / 1175 850 / 1175 250 / 250 Other: Urine Color Pale Yellow Yellow Urine Appearance Clots Clear Clear Comment Benitez remains in place to gravity. Clear yellow urine in collection bag. Stool Occult Blood Negative Stool Size Large Large Stool Characteristics Soft Formed Formed Black Black Laboratory Results WBC 18.09 k/cumm (4.4-10.8) H 02/06/20 06:20 RBC 3.73 m/cumm (4.00-5.20) L 02/06/20 06:20 Hgb 12.2 g/dL (12.0-15.5) 02/06/20 06:20 Hct 38.4 % (36.0-46.0) 02/06/20 06:20 MCV 102.9 fL (80-95) H 02/06/20 06:20 MCH 32.7 pg (27.0-33.0) 02/06/20 06:20 MCHC 31.8 g/dL (32.0-36.0) L 02/06/20 06:20 RDW 14.3 % (11.7-14.6) 02/06/20 06:20 Plt Count 150 x1000/uL (130-400) 02/06/20 06:20 MPV 10.2 fL (8.0-11.0) 02/06/20 06:20 Immature Gran % 0.3 % 02/06/20 06:20 Neutrophils % 96.0 02/06/20 06:20 Band Neutrophils % 2.0 % 02/05/20 06:08 Lymphocytes % 1.5 02/06/20 06:20 Atypical Lymphs % 1 02/05/20 06:08 Monocytes % 2.2 02/06/20 06:20 Eosinophils % 0.0 02/06/20 06:20 Basophils % 0.0 02/06/20 06:20 Absolute Neutrophils 17.37 k/cumm (1.2-6.7) H 02/06/20 06:20 Absolute Lymphocytes 0.27 k/cumm (1.2-3.4) L 02/06/20 06:20 Absolute Monocytes 0.40 k/cumm (0.11-0.7) 02/06/20 06:20 Absolute Eosinophils 0.00 k/cumm (0.0-0.7) 02/06/20 06:20 Absolute Basophils 0.00 k/cumm (0.0-0.2) 02/06/20 06:20 Differential Comment Manual differential 02/05/20 06:08 RBC Morphology Normal 02/05/20 06:08 ESR 9 mm/hr (0-30) 02/04/20 11:15 PT 9.7 sec (9.3-11.0) 02/04/20 11:15 INR 1.0 (0.9-1.1) 02/04/20 11:15 Sodium 144 mmol/L (136-145) 02/06/20 06:20 Potassium 3.5 mmol/L (3.5-5.1) 02/06/20 06:20 Chloride 109 mmol/L (98-107) H 02/06/20 06:20 Carbon Dioxide 22.2 mmol/L (21.0-32.0) 02/06/20 06:20 Anion Gap 12.8 mmol/L (3-11) H 02/06/20 06:20 BUN 23 mg/dL (7-18) H 02/06/20 06:20 Creatinine 1.38 mg/dL (0.55-1.02) H 02/06/20 06:20 Estimated GFR/1.73 m2 36.60 (mL/min/1.73m2) 02/06/20 06:20 Glucose 114 mg/dL (74-106) H 02/06/20 06:20 Lactate 2.0 mmol/L (0.6-1.4) H 02/04/20 15:57 Calcium 8.1 mg/dL (8.5-10.1) L 02/06/20 06:20 Magnesium 2.2 mg/dL (1.8-2.4) 02/06/20 06:20 Total Bilirubin 0.6 mg/dL (0.2-1.0) 02/04/20 11:15 AST 12 U/L (15-37) L 02/04/20 11:15 ALT 13 U/L (14-59) L 02/04/20 11:15 Alkaline Phosphatase 41 U/L (46-116) L 02/04/20 11:15 C-Reactive Protein 22.81 mg/dL (0.0-0.3) H 02/06/20 06:20 NT-Pro-B Natriuret Pep 443 pg/mL (<300) H 02/04/20 11:15 Total Protein 6.1 g/dL (6.4-8.2) L 02/04/20 11:15 Albumin 3.6 g/dL (3.4-5.0) 02/04/20 11:15 Procalcitonin 0.1 ng/mL 02/04/20 11:15 Urine Color Yellow (Yellow) 02/04/20 12:30 Urine Clarity Clear (Clear) 02/04/20 12:30 Urine pH 7.0 (5-8) 02/04/20 12:30 Ur Specific [place] 1.020 (1.005-1.025) 02/04/20 12:30 Urine Protein Negative mg/dL (Negative) 02/04/20 12:30 Urine Ketones Negative mg/dL (Negative) 02/04/20 12:30 Urine Blood Negative (Negative) 02/04/20 12:30 Urine Nitrite Negative (Negative) 02/04/20 12:30 Urine Bilirubin Negative (Negative) 02/04/20 12:30 Urine Urobilinogen 0.2 EU/dL (Up TO 0.2) 02/04/20 12:30 Ur Leukocyte Esterase Negative (Negative) 02/04/20 12:30 Urine Glucose Negative mg/dL (Negative) 02/04/20 12:30 Coronavirus (PCR) Cancelled 02/04/20 11:24
[2020-02-06] MEDS: Nystatin 500000 UNITS/5 ML SUSP 5ML CUP PO ×3 (13:52→22:25)
--- NOTE | 2020-02-06 14:36 | PT.INTREAT ---
Date of service: 02/06/20 Time of Service: 14:36 PT Notes Visit Reasons: SEPTIC SHOCK DUE PNA,ADRENAL INSUFFICIENCY 02/06/2020 SUBJECTIVE: Tanja stating she is doing okay today. She recovered very quickly from this bout of pneumonia and she does not feel as weak as she usually does when she gets pneumonia. OBJECTIVE: Seated in her chair. Agreeable to PT treatment. TRANSFERS Sit to stand: SBA Stand to Sit: SBA GAIT Device: FWW Weight bearing: Full Assist: SBA Distance: 130' Deviation: Decreased gait speed. THEREX: Light seated LE strengthening as noted on flow sheet. ASSESSMENT: Pt tolerates PT well today with good tolerance to gait and light LE strengthening. She does requires several minutes rest after her walk to catch her breath prior to performing her strengthening exercises. PLAN: Continue current POC. Treatment time: 20 minutes [id number] Carla Shipley PTA
--- NOTE | 2020-02-06 15:06 | CHAPLAIN ---
Tanja said she believes she is recovering more quickly than usual from the pneumonia. Usually it lingers much longer, she said. 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 She told me that she live with her son, daughter in law and two teenage grandsons. She moved in with them after her a few years ago. 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 She was raise Bahai, but that didn't work for me, she said, and went to a Sabianist meeting with a friend and continue in [place], [place] and then at the [place] meeting when she moved here.
[2020-02-06] MEDS: Patch Removal 1 EACH TP (20:11)
[2020-02-06] MEDS: Melatonin 3 MG TAB 9 MG PO (22:24)
[2020-02-07] VITALS (16 sets, daily range): BP systolic 122–162; BP diastolic 71–80; PULSE 71–110; RESP 2–28; TEMP 36.3–36.9; O2SAT 86–99
--- NOTE | 2020-02-07 | DI.RAD_ITS ---
EXAM: XR PORTABLE CHEST AP CLINICAL HISTORY: follow up pneumonia TECHNIQUE: 2D digital imaging was performed. COMPARISON: XR PORTABLE CHEST AP from 02/04/2020 FINDINGS: The right upper and lower lobe infiltrates have improved compared to the prior examination. Cardiac silhouette is stable. There is atherosclerosis and tortuosity of the thoracic aorta. Blunting of th e costophrenic angles is noted which likely reflect small pleural effusions. DATA REPOSITORY: RADIATION DOSE DELIVERED:
[2020-02-07] MEDS: PIPERACILLIN/TAZO 3.375 GM in Normal Saline 50 ML IVPB ×4 (02:33→20:19)
[2020-02-07] MEDS: Normal Saline Flush 10 ML SYR IVP ×6 (02:33→23:46)
[2020-02-07] MEDS: Nystatin 500000 UNITS/5 ML SUSP 5ML CUP PO ×5 (06:16→21:40)
[2020-02-07] MEDS: Hydrocortisone SOD SUC. 100 MG VIAL 50 MG IVP ×3 (06:16→21:41)
[2020-02-07] MEDS: Albuterol/Ipratropium 3 ML UPD VIAL UPD ×4 (06:16→23:46)
[2020-02-07 07:22] LABS: Anion Gap 12.1 mmol/L (3-11); BUN 27 mg/dL (7-18); CO2 22.9 mmol/L (21.0-32.0); CREATININE 1.25 mg/dL (0.55-1.02); Calcium 8.8 mg/dL (8.5-10.1); Chloride 110 mmol/L (98-107); Estimated GFR 41.03 (mL/min/1.73m2); Glucose 117 mg/dL (74-106); Magnesium 2.3 mg/dL (1.8-2.4); Potassium 3.5 mmol/L (3.5-5.1); Sodium 145 mmol/L (136-145)
[2020-02-07 07:27] LABS: Abs Immature Grans 0.06 k/cumm (0.0-0.09); Absolute Basophil Count 0.02 k/cumm (0.0-0.2); Absolute Lymphocyte Count 0.87 k/cumm (1.2-3.4); Absolute Monocyte Count 0.37 k/cumm (0.11-0.7); Absolute Neutrophil Count 17.97 k/cumm (1.2-6.7); Basophils % 0.1; HGB 13.4 g/dL (12.0-15.5); Immature Grans % 0.3 %; Lymphocytes % 4.5; Mean Corp. HGB Concentration 32.7 g/dL (32.0-36.0); Mean Corpuscular Hemoglobin 33.4 pg (27.0-33.0); Mean Corpuscular Volume 102.2 fL (80-95); Mean Platelet Volume 10.1 fL (8.0-11.0); Monocytes % 1.9; Neutrophils % 93.2; Platelet Count 124 x1000/uL (130-400); RBC 4.01 m/cumm (4.00-5.20); RBC Distribution Width 14.3 % (11.7-14.6); White Blood Cell Count 19.28 k/cumm (4.4-10.8)
[2020-02-07] MEDS: Lidocaine 5% Patch 1 PATCH TD (08:09)
[2020-02-07] MEDS: Pantoprazole 40 MG VIAL IVP (08:09)
[2020-02-07] MEDS: Folic Acid 1 MG TAB PO (08:10)
[2020-02-07] MEDS: predniSONE 5 MG TAB 10 MG PO (08:10)
[2020-02-07] MEDS: Methadone 5 MG TAB PO (08:10)
[2020-02-07] MEDS: Apixaban 2.5 MG TAB PO ×2 (08:10→20:20)
[2020-02-07] MEDS: Gabapentin 300 MG CAP 600 MG PO ×2 (08:10→20:20)
[2020-02-07] MEDS: Multivitamin TAB 1 TAB PO (08:10)
[2020-02-07 08:22] LABS: C-Reactive Protein 14.87 mg/dL (0.0-0.3)
[2020-02-07] MEDS: Ferrous Sulfate 325 MG TAB PO ×2 (09:40→18:07)
--- NOTE | 2020-02-07 10:56 | CMPROGNOTE_ITS ---
- If Service Date Differs Date of service: 02/07/20 Time of Service: 10:56 Care Management Progress Note S/O:Tanja was sitting up in a chair when CM met with her. She was again expressing concern about her trip to [facility] scheduled for Thursday.She is waiting to hear from Dr. Parker if there is an oral antibiotic that can be used to treat her pneumonia. If not, she will likely need to remain hospitalized for a longer period of time and may miss her appointment. Options were discussed with her, including SB1. CM will remain in contact with [facility] to determined continued availability for transport to [facility]. Tanja also stated that she had a difficult time breathing last evening and was concerned, although she is feeling better today. A: Tanja is an 84 year old woman admitted with sepsis on 02/04/20 P: Tanja will discharge home when medically ready per MD. Patient will discharge home, likely with increased home health services and follow up with her PCP. CM will continue to offer support to patient, family and care team regarding discharge planning and disposition.
--- NOTE | 2020-02-07 12:42 | W.PM.PROGNOT ---
Date of Service Date of service: 02/07/20 Time of Service: 12:42 Assessment and Plan Assessment and plan (1) Septic shock: Status: Resolved Assessment and plan: Exacerbated by acute adrenal insufficiency, as well, likely precipitated by RUL/RLL pneumonia with h/o pseudomonas and aspiration pneumonias in the past. Off pressors; shock resolved. Blood cultures are negative. Sputum C&S is positive for 2 strains of pseudomonas, and our lab has difficulty seeing whether it is sensitive to zosyn/aztreonam - being sent out to [facility]. Discussed with patient's neurologist - it is possible that the patient would be discharged home on a fluoroquinolone with instructions to notify neuro if MG symptoms got worse. Continue zosyn/aztreonam (day 4/total 10 days of abx). Continue current dose of stress dose steroids. (2) Multifocal pneumonia: Status: Acute Assessment and plan: Due to Pseudomonas, present on admission. Now much improved. Read discussion above re abx. Component of slight fluid overload - will give 1 dose of lasix 20 mg. No longer requiring oxygen (never had O2 at home). No evidence for aspiration, per speech therapy. Will require a total of 10 days of abx Continue scheduled and prn nebs. (3) Acute adrenal insufficiency: Status: Acute Assessment and plan: Continue current dose of stress dose steroids. (4) Pulmonary arterial hypertension: Status: Chronic Assessment and plan: Slightly fluid overloaded - will give 1 dose of PO lasix 20 mg. (5) Chronic respiratory failure with hypoxia: Status: Ruled-out Assessment and plan: Patient states she never required oxygen at home. ?chart error (6) Myasthenia gravis: Status: Chronic Assessment and plan: On chronic steroids/ receiving plasmaphoresis. Continue steroid taper. Patient states that she will make her own phone calls to [facility] in regards to plasma exchange and her biologic. (7) Atrial fibrillation: Status: Chronic Assessment and plan: Paroxysmal - rate is controlled; continue eliquis. (8) Hx of deep venous thrombosis: Status: Resolved Assessment and plan: Continue eliquis (9) Thrush, oral: Status: Acute Assessment and plan: Continue Nystatin swish and swallow (10) DVT prophylaxis: Status: Acute Assessment and plan: On therapeutic eliquis (11) Discharge planning issues: Status: Acute Assessment and plan: DNR/DNI. Could potentially be discharged home in 48 hours. Subjective Subjective Interval history since last seen: Ms Carpio states that at around 6 pm yesterday she started to feel worse. She started to have diarrhea (she has chronic diarrhea for which she takes lomotil; she had been refusing it earlier in the day). Diarrhea was initially watery but then slowed down. She also felt shorter of breath at that time, but is doing better now, and her diarrhea has stopped. Denies dizziness, chest pain, nausea. Per my conversation with Dr Patel (patient's neurologist), levofloxacin is relatively contraindicated, but not absolutely, and if the risks of the patient staying in the hospital were high enough (a hypothetical covid-19 patient admitted at the same time), switching to levofloxacin and discharge home may be appropriate. The patient and I agreed to think about it and decide together in 2 days. Exam Narrative Exam Narrative: General: Very pleasant elderly female, sitting up in a chair, A&Ox3, looks more tired HEENT: EOMI, eyes widely open, less droopy today, MMM Cardiovascular: RRR, no m/r/g Lungs: slight rales heard at B bases Gastrointestinal: soft, nontender, nondistended Extremities: trace edema BLE's, no c/c BLE's, warm feet Objective Objective Clinical Data: Abnormal lab results 02/07/20 02/07/20 Range/Units 06:50 06:50 WBC 19.28 H (4.4-10.8) k/cumm MCV 102.2 H (80-95) fL MCH 33.4 H (27.0-33.0) pg Plt Count 124 L (130-400) x1000/uL Absolute Neutrophils 17.97 H (1.2-6.7) k/cumm Absolute Lymphocytes 0.87 L (1.2-3.4) k/cumm Chloride 110 H (98-107) mmol/L Anion Gap 12.1 H (3-11) mmol/L BUN 27 H (7-18) mg/dL Creatinine 1.25 H (0.55-1.02) mg/dL Glucose 117 H (74-106) mg/dL C-Reactive Protein 14.87 H (0.0-0.3) mg/dL Vital Signs Temperature 36.4 C L 02/07/20 11:21 Temperature Source Tympanic 02/07/20 11:21 Pulse 99 H 02/07/20 11:21 Pulse Rhythm Irregular 02/07/20 11:19 Pulse 86 02/05/20 13:00 Respiratory Rate 19 02/07/20 11:21 Respiratory Effort 02/07/20 11:19 Respiratory Depth Shallow 02/07/20 11:19 Respiratory Pattern Normal 02/07/20 11:19 Blood Pressure 126/75 02/07/20 11:21 Blood Pressure Mean 64 02/05/20 13:00 Blood Pressure Position Sitting 02/05/20 10:40 Pulse Oximetry 93 L 02/07/20 11:21 Oxygen Delivery Method Room Air 02/07/20 11:21 Oxygen Flow Rate 0 02/07/20 11:21 Pain Level 0 02/07/20 11:21 Comment 02/07/20 07:02 Intake & Output 02/06/20 02/07/20 02/07/20 23:59 11:59 23:59 Intake Total 680 / 1470 410 / 410 Balance 680 / 1220 410 / 410 Intake: IV 200 / 750 170 / 170 Oral 480 / 720 240 / 240 Other: Urine Appearance Clear Clear Comment Discontinued per verbal order in the room by Dr. Parker urine mixed with stool Stool Size Moderate Moderate Stool Characteristics Liquid Soft Black Liquid Green Voiding Methods Bedside Commode Laboratory Results WBC 19.28 k/cumm (4.4-10.8) H 02/07/20 06:50 RBC 4.01 m/cumm (4.00-5.20) 02/07/20 06:50 Hgb 13.4 g/dL (12.0-15.5) 02/07/20 06:50 Hct 41.0 % (36.0-46.0) 02/07/20 06:50 MCV 102.2 fL (80-95) H 02/07/20 06:50 MCH 33.4 pg (27.0-33.0) H 02/07/20 06:50 MCHC 32.7 g/dL (32.0-36.0) 02/07/20 06:50 RDW 14.3 % (11.7-14.6) 02/07/20 06:50 Plt Count 124 x1000/uL (130-400) L 02/07/20 06:50 MPV 10.1 fL (8.0-11.0) 02/07/20 06:50 Immature Gran % 0.3 % 02/07/20 06:50 Neutrophils % 93.2 02/07/20 06:50 Band Neutrophils % 2.0 % 02/05/20 06:08 Lymphocytes % 4.5 02/07/20 06:50 Atypical Lymphs % 1 02/05/20 06:08 Monocytes % 1.9 02/07/20 06:50 Eosinophils % 0.0 02/07/20 06:50 Basophils % 0.1 02/07/20 06:50 Absolute Neutrophils 17.97 k/cumm (1.2-6.7) H 02/07/20 06:50 Absolute Lymphocytes 0.87 k/cumm (1.2-3.4) L 02/07/20 06:50 Absolute Monocytes 0.37 k/cumm (0.11-0.7) 02/07/20 06:50 Absolute Eosinophils 0.00 k/cumm (0.0-0.7) 02/07/20 06:50 Absolute Basophils 0.02 k/cumm (0.0-0.2) 02/07/20 06:50 Differential Comment Manual differential 02/05/20 06:08 RBC Morphology Normal 02/05/20 06:08 ESR 9 mm/hr (0-30) 02/04/20 11:15 PT 9.7 sec (9.3-11.0) 02/04/20 11:15 INR 1.0 (0.9-1.1) 02/04/20 11:15 Sodium 145 mmol/L (136-145) 02/07/20 06:50 Potassium 3.5 mmol/L (3.5-5.1) 02/07/20 06:50 Chloride 110 mmol/L (98-107) H 02/07/20 06:50 Carbon Dioxide 22.9 mmol/L (21.0-32.0) 02/07/20 06:50 Anion Gap 12.1 mmol/L (3-11) H 02/07/20 06:50 BUN 27 mg/dL (7-18) H 02/07/20 06:50 Creatinine 1.25 mg/dL (0.55-1.02) H 02/07/20 06:50 Estimated GFR/1.73 m2 41.03 (mL/min/1.73m2) 02/07/20 06:50 Glucose 117 mg/dL (74-106) H 02/07/20 06:50 Lactate 2.0 mmol/L (0.6-1.4) H 02/04/20 15:57 Calcium 8.8 mg/dL (8.5-10.1) 02/07/20 06:50 Magnesium 2.3 mg/dL (1.8-2.4) 02/07/20 06:50 Total Bilirubin 0.6 mg/dL (0.2-1.0) 02/04/20 11:15 AST 12 U/L (15-37) L 02/04/20 11:15 ALT 13 U/L (14-59) L 02/04/20 11:15 Alkaline Phosphatase 41 U/L (46-116) L 02/04/20 11:15 C-Reactive Protein 14.87 mg/dL (0.0-0.3) H 02/07/20 06:50 NT-Pro-B Natriuret Pep 443 pg/mL (<300) H 02/04/20 11:15 Total Protein 6.1 g/dL (6.4-8.2) L 02/04/20 11:15 Albumin 3.6 g/dL (3.4-5.0) 02/04/20 11:15 Procalcitonin 0.1 ng/mL 02/04/20 11:15 Urine Color Yellow (Yellow) 02/04/20 12:30 Urine Clarity Clear (Clear) 02/04/20 12:30 Urine pH 7.0 (5-8) 02/04/20 12:30 Ur Specific [place] 1.020 (1.005-1.025) 02/04/20 12:30 Urine Protein Negative mg/dL (Negative) 02/04/20 12:30 Urine Ketones Negative mg/dL (Negative) 02/04/20 12:30 Urine Blood Negative (Negative) 02/04/20 12:30 Urine Nitrite Negative (Negative) 02/04/20 12:30 Urine Bilirubin Negative (Negative) 02/04/20 12:30 Urine Urobilinogen 0.2 EU/dL (Up TO 0.2) 02/04/20 12:30 Ur Leukocyte Esterase Negative (Negative) 02/04/20 12:30 Urine Glucose Negative mg/dL (Negative) 02/04/20 12:30 Coronavirus (PCR) Cancelled 02/04/20 11:24 CXR: The right upper and lower lobe infiltrates have improved compared to the prior examination. Cardiac silhouette is stable. There is atherosclerosis and tortuosity of the thoracic aorta. Blunting of the costophrenic angles is noted which likely reflect small pleural effusions.
[2020-02-07] MEDS: Furosemide 20 MG TAB PO (14:11)
--- NOTE | 2020-02-07 15:47 | PT.INTREAT ---
Date of service: 02/07/20 Time of Service: 10:28 PT Notes Visit Reasons: SEPTIC SHOCK DUE PNA,ADRENAL INSUFFICIENCY Physical Therapy Inpatient Note Date: 02/07/2020 PRECAUTIONS: Fall. Contact enteric precautions. Activity as tolerated. Needs 1 L min of O2 for all mobility ADL performance per RT recommendation this morning. SUBJECTIVE: Patient understands why she is on C.Difficile precautions right now. She reports having diarrhea episode this morning. Her wheezes started yesterday afternoon. Denies any pain. She stresses that the chair she sits on right now allows for good relief for her sacral pressure sore unlike the recliner chair. In the afternoon, patient has had diarrhea episode and requested that she be seen for therapy tomorrow morning as she feels completely exhausted and wanted to lie down for the rest of the afternoon. OBJECTIVE: Patient on room air. In no apparent respiratory distress. Mild breathlessnes seen after ambulation activity. On 1 L of oxygen for mobility ADL performance via NC. In the afternoon, patient was found sitting on bedside commode with [employer] staff monitoring oxygen levels and providing assistance for perineal care. PAIN: 0/10 BED MOBILITY/TRANSFERS Sit-stand: SBA Stand-sit: SBA Bed-Chair: SBA Chair-bed: SBA GAIT Assistive Device: FWW Weight bearing: FWB Assist: SBA Distance: 25 feet Deviation: Decreased michelle. Patient states that she can walk longer if she takes her time with each steps. 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 VITALS: Oxygen saturation went down to 85% on RA after ambulation of about 25-30 feet THEREX: Seated hip flexion exercises and LAQs x 10 Ankle PF/DF x 10 Deep breathing exercises ASSESSMENT: With new symptom of wheezing and diarrhea compounding her pre-existing myasthenia gravis and pneumonia, patient's level of tolerance has significantly diminished. RT recommended using 1 L of oxygen per minute for all mobility ADL performance to prevent desaturation. Patient refused any exercise session in the afternoon due to fatigue from successive diarrhea episodes this afternoon. PLAN: Continue with PT POC as initially established to facilitate return to home. TREATMENT CODE/TIME: 45833 x 28 minutes beginning at 10:28 AM.
[2020-02-07] MEDS: Patch Removal 1 EACH TP (20:22)
[2020-02-07] MEDS: Melatonin 3 MG TAB 9 MG PO (21:40)
[2020-02-07] MEDS: Acetaminophen 325 MG TAB PO (21:44)
[2020-02-08] VITALS (10 sets, daily range): BP systolic 111–156; BP diastolic 66–88; PULSE 68–89; RESP 2–20; TEMP 35–36.6; O2SAT 91–99
[2020-02-08] MEDS: PIPERACILLIN/TAZO 3.375 GM in Normal Saline 50 ML IVPB ×4 (02:14→20:06)
[2020-02-08] MEDS: Normal Saline Flush 10 ML SYR IVP ×7 (02:16→23:29)
[2020-02-08] MEDS: Nystatin 500000 UNITS/5 ML SUSP 5ML CUP PO ×5 (06:01→21:25)
[2020-02-08] MEDS: Hydrocortisone SOD SUC. 100 MG VIAL 50 MG IVP (06:01)
[2020-02-08] MEDS: Albuterol/Ipratropium 3 ML UPD VIAL UPD ×3 (06:02→23:25)
[2020-02-08 06:47] LABS: Abs Immature Grans 0.05 k/cumm (0.0-0.09); Absolute Lymphocyte Count 0.23 k/cumm (1.2-3.4); Absolute Monocyte Count 0.41 k/cumm (0.11-0.7); Absolute Neutrophil Count 11.46 k/cumm (1.2-6.7); HCT 37.2 % (36.0-46.0); HGB 11.9 g/dL (12.0-15.5); Immature Grans % 0.4 %; Lymphocytes % 1.9; Mean Corpuscular Hemoglobin 33.1 pg (27.0-33.0); Mean Corpuscular Volume 103.3 fL (80-95); Monocytes % 3.4; Neutrophils % 94.3; Platelet Count 151 x1000/uL (130-400); RBC Distribution Width 14.4 % (11.7-14.6); White Blood Cell Count 12.15 k/cumm (4.4-10.8)
[2020-02-08 07:00] LABS: Anion Gap 12.2 mmol/L (3-11); BUN 33 mg/dL (7-18); C-Reactive Protein 8.58 mg/dL (0.0-0.3); CO2 24.8 mmol/L (21.0-32.0); Calcium 8.6 mg/dL (8.5-10.1); Chloride 110 mmol/L (98-107); Estimated GFR 39.21 (mL/min/1.73m2); Glucose 128 mg/dL (74-106); Magnesium 2.1 mg/dL (1.8-2.4); Sodium 147 mmol/L (136-145)
[2020-02-08 07:02] LABS: Potassium 2.8 mmol/L (3.5-5.1)
[2020-02-08] MEDS: Lidocaine 5% Patch 1 PATCH TD (08:32)
[2020-02-08] MEDS: Pantoprazole 40 MG VIAL IVP (08:33)
[2020-02-08] MEDS: Folic Acid 1 MG TAB PO (08:34)
[2020-02-08] MEDS: Gabapentin 300 MG CAP 600 MG PO ×2 (08:34→20:06)
[2020-02-08] MEDS: Multivitamin TAB 1 TAB PO (08:34)
[2020-02-08] MEDS: Apixaban 2.5 MG TAB PO ×2 (08:34→20:06)
[2020-02-08] MEDS: Potassium Chloride 20 MEQ TABCR 40 MEQ PO ×3 (08:34→20:05)
[2020-02-08] MEDS: predniSONE 5 MG TAB 10 MG PO (08:34)
[2020-02-08] MEDS: Ferrous Sulfate 325 MG TAB PO ×2 (08:35→17:29)
[2020-02-08] MEDS: Methadone 5 MG TAB PO (08:35)
--- NOTE | 2020-02-08 09:36 | PDOC.CMPRO ---
- If Service Date Differs Date of service: 02/08/20 Time of Service: 09:36 Care Management Progress Note S/O:Tanja is walking in the halls with PT, she feels that she is improving. No changes in status today she will plan to be discharged home resumption of home health services for nursing which she has daily for wound care. A: Tanja is an 84 year old woman admitted with sepsis on 02/04/20 P: Tanja will discharge home when medically ready per MD. Patient will discharge home, with resumption of daily wound care and follow up with her PCP. CM will continue to offer support to patient, family and care team regarding discharge planning and disposition.
--- NOTE | 2020-02-08 13:12 | PGE_ITS ---
Date of Service Date of service: 02/08/20 Time of Service: 13:13 Assessment and Plan Assessment and plan (1) Septic shock: Status: Resolved Assessment and plan: Exacerbated by acute adrenal insufficiency, as well, likely precipitated by RUL/RLL pneumonia with h/o pseudomonas and aspiration pneumonias in the past. Off pressors; shock resolved. Blood cultures are negative. White count and CRP are markedly better. Sputum C&S is positive for 2 strains of pseudomonas, Sensitivities are pending. Discussed with patient's neurologist - it is possible that the patient would be discharged home on a fluoroquinolone with instructions to notify neuro if MG symptoms got worse. Continue zosyn/aztreonam (day 5/total 10 days of abx). Taper steroids. (2) Multifocal pneumonia: Status: Acute Assessment and plan: Due to Pseudomonas, present on admission. Improved. Read discussion above re abx. Repeat lasix x 1. O2 requirement with activity noted today - likely attributed more to the fluid status. Will reassess. No evidence for aspiration, per speech therapy. Will require a total of 10 days of abx Continue scheduled and prn nebs. (3) Acute adrenal insufficiency: Status: Acute Assessment and plan: Continue current dose of stress dose steroids. (4) Pulmonary arterial hypertension: Status: Chronic Assessment and plan: Slightly fluid overloaded - will give 1 dose of PO lasix 20 mg. (5) Chronic respiratory failure with hypoxia: Status: Ruled-out Assessment and plan: Patient states she never required oxygen at home. ?chart error (6) Myasthenia gravis: Status: Chronic Assessment and plan: On chronic steroids/ receiving plasmaphoresis. Continue steroid taper. Patient is contacting her neurologist to make plans as to her next treatments. (7) Atrial fibrillation: Status: Chronic Assessment and plan: Paroxysmal - rate is controlled; continue eliquis. (8) Hx of deep venous thrombosis: Status: Resolved Assessment and plan: Continue eliquis (9) Thrush, oral: Status: Acute Assessment and plan: Continue Nystatin swish and swallow (10) DVT prophylaxis: Status: Acute Assessment and plan: On therapeutic eliquis (11) Discharge planning issues: Status: Acute Assessment and plan: DNR/DNI. Likely discharge home in 48 hours Subjective Subjective Interval history since last seen: Ms Carpio states that she is not feeling too good today - primarily, it's the diarrhea and feeling short of breath. She is coughing up yellow sputum. Denies dizziness, chest pain, nausea, abdominal pain. Diarrhea is slowing down with lomotil. Requested probiotic. 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 Exam Narrative Exam Narrative: General: Very pleasant elderly female, sitting up in a chair, A&Ox3, still does look tired HEENT: EOMI, MMM, eyes do not appear droopy Cardiovascular: RRR with an occasional extra beat, no m/r/g Lungs: slight rales heard at B bases, improved from yesterday; otherwise, coarse breath sounds throughout Gastrointestinal: soft, nontender, nondistended Extremities: +1 edema BLE's, worse today, no c/c BLE's, warm feet Objective Objective Clinical Data: Abnormal lab results 02/08/20 02/08/20 Range/Units 06:15 06:15 WBC 12.15 H D (4.4-10.8) k/cumm RBC 3.60 L (4.00-5.20) m/cumm Hgb 11.9 L (12.0-15.5) g/dL MCV 103.3 H (80-95) fL MCH 33.1 H (27.0-33.0) pg Absolute Neutrophils 11.46 H (1.2-6.7) k/cumm Absolute Lymphocytes 0.23 L (1.2-3.4) k/cumm Sodium 147 H (136-145) mmol/L Potassium 2.8 L* (3.5-5.1) mmol/L Chloride 110 H (98-107) mmol/L Anion Gap 12.2 H (3-11) mmol/L BUN 33 H (7-18) mg/dL Creatinine 1.30 H (0.55-1.02) mg/dL Glucose 128 H (74-106) mg/dL C-Reactive Protein 8.58 H (0.0-0.3) mg/dL Vital Signs Temperature 36.6 C 02/08/20 11:13 Temperature Source Tympanic 02/08/20 11:13 Pulse 76 02/08/20 11:13 Pulse Rhythm Irregular 03/18/20 10:32 Pulse 86 02/05/20 13:00 Respiratory Rate 18 02/08/20 11:13 Respiratory Effort 02/08/20 10:32 Respiratory Depth Shallow 02/08/20 10:32 Respiratory Pattern Normal 02/08/20 10:32 Blood Pressure 156/78 H 02/08/20 11:13 Blood Pressure Mean 64 02/05/20 13:00 Blood Pressure Position Sitting 02/05/20 10:40 Pulse Oximetry 97 02/08/20 11:13 Oxygen Delivery Method Nasal Cannula 02/08/20 11:13 Oxygen Flow Rate 1 02/08/20 11:13 Pain Level 0 02/08/20 11:13 Comment 02/08/20 00:22 Intake & Output 02/07/20 02/08/20 02/08/20 23:59 11:59 23:59 Intake Total 700 / 1260 540 / 780 240 / 780 Output Total 625 / 625 Balance 700 / 1260 -85 / 155 240 / 155 Intake: IV 210 / 530 300 / 300 Oral 490 / 730 240 / 480 240 / 480 Output: Urine 625 / 625 Other: Urine Color Yellow Urine Appearance Clear Clear Urine Odor None Comment urine mixed with stool mixed with liquid stool Stool Size Moderate Small Stool Characteristics Soft Soft Liquid Liquid Voiding Methods Bedpan Bedside Commode Laboratory Results WBC 12.15 k/cumm (4.4-10.8) H D 02/08/20 06:15 RBC 3.60 m/cumm (4.00-5.20) L 02/08/20 06:15 Hgb 11.9 g/dL (12.0-15.5) L 02/08/20 06:15 Hct 37.2 % (36.0-46.0) 02/08/20 06:15 MCV 103.3 fL (80-95) H 02/08/20 06:15 MCH 33.1 pg (27.0-33.0) H 02/08/20 06:15 MCHC 32.0 g/dL (32.0-36.0) 02/08/20 06:15 RDW 14.4 % (11.7-14.6) 02/08/20 06:15 Plt Count 151 x1000/uL (130-400) 02/08/20 06:15 MPV 10.0 fL (8.0-11.0) 02/08/20 06:15 Immature Gran % 0.4 % 02/08/20 06:15 Neutrophils % 94.3 02/08/20 06:15 Band Neutrophils % 2.0 % 02/05/20 06:08 Lymphocytes % 1.9 02/08/20 06:15 Atypical Lymphs % 1 02/05/20 06:08 Monocytes % 3.4 02/08/20 06:15 Eosinophils % 0.0 02/08/20 06:15 Basophils % 0.0 02/08/20 06:15 Absolute Neutrophils 11.46 k/cumm (1.2-6.7) H 02/08/20 06:15 Absolute Lymphocytes 0.23 k/cumm (1.2-3.4) L 02/08/20 06:15 Absolute Monocytes 0.41 k/cumm (0.11-0.7) 02/08/20 06:15 Absolute Eosinophils 0.00 k/cumm (0.0-0.7) 02/08/20 06:15 Absolute Basophils 0.00 k/cumm (0.0-0.2) 02/08/20 06:15 Differential Comment Manual differential 02/05/20 06:08 RBC Morphology Normal 02/05/20 06:08 ESR 9 mm/hr (0-30) 02/04/20 11:15 PT 9.7 sec (9.3-11.0) 02/04/20 11:15 INR 1.0 (0.9-1.1) 02/04/20 11:15 Sodium 147 mmol/L (136-145) H 02/08/20 06:15 Potassium 2.8 mmol/L (3.5-5.1) L* 02/08/20 06:15 Chloride 110 mmol/L (98-107) H 02/08/20 06:15 Carbon Dioxide 24.8 mmol/L (21.0-32.0) 02/08/20 06:15 Anion Gap 12.2 mmol/L (3-11) H 02/08/20 06:15 BUN 33 mg/dL (7-18) H 02/08/20 06:15 Creatinine 1.30 mg/dL (0.55-1.02) H 02/08/20 06:15 Estimated GFR/1.73 m2 39.21 (mL/min/1.73m2) 02/08/20 06:15 Glucose 128 mg/dL (74-106) H 02/08/20 06:15 Lactate 2.0 mmol/L (0.6-1.4) H 02/04/20 15:57 Calcium 8.6 mg/dL (8.5-10.1) 02/08/20 06:15 Magnesium 2.1 mg/dL (1.8-2.4) 02/08/20 06:15 Total Bilirubin 0.6 mg/dL (0.2-1.0) 02/04/20 11:15 AST 12 U/L (15-37) L 02/04/20 11:15 ALT 13 U/L (14-59) L 02/04/20 11:15 Alkaline Phosphatase 41 U/L (46-116) L 02/04/20 11:15 C-Reactive Protein 8.58 mg/dL (0.0-0.3) H 02/08/20 06:15 NT-Pro-B Natriuret Pep 443 pg/mL (<300) H 02/04/20 11:15 Total Protein 6.1 g/dL (6.4-8.2) L 02/04/20 11:15 Albumin 3.6 g/dL (3.4-5.0) 02/04/20 11:15 Procalcitonin 0.1 ng/mL 02/04/20 11:15 Urine Color Yellow (Yellow) 02/04/20 12:30 Urine Clarity Clear (Clear) 02/04/20 12:30 Urine pH 7.0 (5-8) 02/04/20 12:30 Ur Specific [place] 1.020 (1.005-1.025) 02/04/20 12:30 Urine Protein Negative mg/dL (Negative) 02/04/20 12:30 Urine Ketones Negative mg/dL (Negative) 02/04/20 12:30 Urine Blood Negative (Negative) 02/04/20 12:30 Urine Nitrite Negative (Negative) 02/04/20 12:30 Urine Bilirubin Negative (Negative) 02/04/20 12:30 Urine Urobilinogen 0.2 EU/dL (Up TO 0.2) 02/04/20 12:30 Ur Leukocyte Esterase Negative (Negative) 02/04/20 12:30 Urine Glucose Negative mg/dL (Negative) 02/04/20 12:30 Coronavirus (PCR) Cancelled 02/04/20 11:24 CXR: The right upper and lower lobe infiltrates have improved compared to the prior examination. Cardiac silhouette is stable. There is atherosclerosis and tortuosity of the thoracic aorta. Blunting of the costophrenic angles is noted which likely reflect small pleural effusions.
[2020-02-08] MEDS: Furosemide 20 MG/2 ML VIAL IVP (13:25)
[2020-02-08] MEDS: Hydrocortisone SOD SUC. 100 MG VIAL 25 MG IVP ×2 (13:58→21:26)
--- NOTE | 2020-02-08 14:08 | CHAPLAIN ---
Tanja was sitting up in her chair this morning. She said she hadn't been feeling well earlier, but was startling to feel better. She is a [employer] and attends the [employer] in [place], [place] when she can and when she gets a ride. She told me about becoming a [employer] after leaving the [employer]. She currently lives with her youngest son, his and their two sons in [place]. She has two other sons and a daughter. She sounds well supported by her family.
--- NOTE | 2020-02-08 15:21 | PT.INTREAT ---
Date of service: 02/08/20 Time of Service: 15:21 PT Notes Visit Reasons: SEPTIC SHOCK DUE PNA,ADRENAL INSUFFICIENCY PT Inpatient Treatment Note Date: 02/08/2020 PRECAUTIONS: Fall. Contact enteric precautions discontinued as of 02/08/2020. Activity as tolerated. Needs 1 L min of O2 for all mobility ADL performance per RT recommendation. SUBJECTIVE: Patient states that she has had little episodes of soft stools once this morning and twice this afternoon. She feels a little less fatigued compared to yesterday. She was wondering if the doughnut cushion her [id number] lissy from home is beneficial for her sacral pressure ulcer. She states that she has not used any oxygen supplement before. In the afternoon, patient tolerated seated level exercises and is agreeable to trying out resistance exercises starting off with 2 pound AW to see how she does. She states that her next plasmaphareis has been scheduled next Thursday (instead of this coming Thursday). OBJECTIVE: Patient on room air at rest. In no apparent respiratory distress. Mild breathlessnes seen after ambulation activity. On 1 L of oxygen for mobility ADL performance via NC. PAIN: 0/10 BED MOBILITY/TRANSFERS Sit-stand: Supervision with oxygen supplementation Stand-sit: Supervision with oxygen supplementation Bed-Chair: Supervision with oxygen supplementation Chair-bed: Supervision with oxygen supplementation GAIT Assistive Device: FWW Weight bearing: FWB Assist: SBA Distance: 60 feet x 2 Deviation: Decreased michelle. Patient states that she can walk longer if she takes her time with each steps. 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 VITALS: Oxygen saturation went down to 87% to 91% throughout ambulation activity THEREX: In the afternoon, patient was able to tolerate the following after ambulation activity Seated hip flexion exercises and LAQs x 10 Ankle PF/DF x 10 Deep breathing exercises ASSESSMENT: Patient tested negative for C. Difficile. Today she demonstrates improved activity tolerance with resolution of diarrhea and with use of oxygen supplement. PLAN: Continue with PT POC as initially established to facilitate return to home. Patient was advised about the most optimal pressure relieving device for her sacral ulcer. We will plan on showing seat cushion options for her as soon as possible. TREATMENT CODE/TIME: Session 1--06319 x 28 minutes beginning at 11:32 AM. Session 2??27559 x14 minutes, 9711 0 x 10 minutes beginning at 15:21 PM.
[2020-02-08] MEDS: Patch Removal 1 EACH TP (20:08)
[2020-02-08] MEDS: Melatonin 3 MG TAB 9 MG PO (21:24)
[2020-02-09] VITALS (14 sets, daily range): BP systolic 126–157; BP diastolic 72–84; PULSE 71–103; RESP 2–22; TEMP 36.1–36.8; O2SAT 88–99
[2020-02-09] MEDS: PIPERACILLIN/TAZO 3.375 GM in Normal Saline 50 ML IVPB ×4 (01:29→20:25)
[2020-02-09] MEDS: Nystatin 500000 UNITS/5 ML SUSP 5ML CUP PO ×5 (06:20→21:26)
[2020-02-09] MEDS: Albuterol/Ipratropium 3 ML UPD VIAL UPD ×4 (06:23→23:19)
[2020-02-09] MEDS: Hydrocortisone SOD SUC. 100 MG VIAL 25 MG IVP (06:28)
[2020-02-09 06:47] LABS: Absolute Basophil Count 0.01 k/cumm (0.0-0.2); Absolute Lymphocyte Count 0.43 k/cumm (1.2-3.4); Absolute Monocyte Count 0.42 k/cumm (0.11-0.7); Absolute Neutrophil Count 8.14 k/cumm (1.2-6.7); Basophils % 0.1; HCT 35.9 % (36.0-46.0); HGB 11.6 g/dL (12.0-15.5); Immature Grans % 1.1 %; Lymphocytes % 4.7; Mean Corp. HGB Concentration 32.3 g/dL (32.0-36.0); Mean Corpuscular Hemoglobin 33.3 pg (27.0-33.0); Mean Corpuscular Volume 103.2 fL (80-95); Mean Platelet Volume 10.3 fL (8.0-11.0); Monocytes % 4.6; Neutrophils % 89.5; Platelet Count 125 x1000/uL (130-400); RBC 3.48 m/cumm (4.00-5.20); RBC Distribution Width 14.3 % (11.7-14.6)
[2020-02-09 07:02] LABS: Anion Gap 8.2 mmol/L (3-11); BUN 26 mg/dL (7-18); C-Reactive Protein 5.29 mg/dL (0.0-0.3); CO2 27.8 mmol/L (21.0-32.0); CREATININE 1.14 mg/dL (0.55-1.02); Calcium 8.3 mg/dL (8.5-10.1); Chloride 111 mmol/L (98-107); Estimated GFR 45.63 (mL/min/1.73m2); Glucose 97 mg/dL (74-106); Magnesium 1.9 mg/dL (1.8-2.4); Potassium 3.1 mmol/L (3.5-5.1); Sodium 147 mmol/L (136-145)
[2020-02-09] MEDS: Lidocaine 5% Patch 1 PATCH TD (07:45)
[2020-02-09] MEDS: Normal Saline Flush 10 ML SYR IVP ×4 (07:45→23:20)
[2020-02-09] MEDS: Pantoprazole 40 MG VIAL IVP (07:45)
[2020-02-09] MEDS: predniSONE 5 MG TAB 10 MG PO (07:46)
[2020-02-09] MEDS: Multivitamin TAB 1 TAB PO (07:47)
[2020-02-09] MEDS: Gabapentin 300 MG CAP 600 MG PO ×2 (07:47→19:30)
[2020-02-09] MEDS: Methadone 5 MG TAB PO (07:47)
[2020-02-09] MEDS: Folic Acid 1 MG TAB PO (07:47)
[2020-02-09] MEDS: Apixaban 2.5 MG TAB PO ×2 (08:10→19:30)
[2020-02-09] MEDS: Ferrous Sulfate 325 MG TAB PO ×2 (09:26→18:44)
[2020-02-09] MEDS: Potassium Chloride 20 MEQ TABCR 40 MEQ PO (09:26)
--- NOTE | 2020-02-09 10:11 | PDOC.CMPRO ---
- If Service Date Differs Date of service: 02/09/20 Time of Service: 10:11 Care Management Progress Note S/O:Tanja was sitting up in bed when CM met with her. She admitted that she is not feeling as well as she did a few days ago. She stated that she feels it is because the doctor is tapering down her prednisone. Tanja shared that she has rescheduled her appointments at [facility] for next Thursday. She will receive plasmaphoresis and an infusion at that time. She has also cancelled her RCT transport since her family is available to take her. CM facilitated the revision of Tanja's HIPAA form to add her [id number] and also sent a order/referral to [facility] for a new skin protection cushion. A: Tanja is an 84 year old woman admitted with sepsis on 02/04/20 P: Tanja will discharge home when medically ready per MD. Patient will discharge home, with resumption of daily wound care and follow up with her PCP. CM will continue to offer support to patient, family and care team regarding discharge planning and disposition.
[2020-02-09] MEDS: guaiFENesin 600 MG TABCR PO ×2 (10:23→19:30)
[2020-02-09] MEDS: Furosemide 20 MG/2 ML VIAL IVP (10:23)
[2020-02-09] MEDS: Acetaminophen 325 MG TAB PO (11:24)
[2020-02-09] MEDS: predniSONE 10 MG, predniSONE 20 MG 30 MG PO (12:06)
--- NOTE | 2020-02-09 12:15 | PGE_ITS ---
Date of Service Date of service: 02/09/20 Time of Service: 12:15 Assessment and Plan Assessment and plan (1) Septic shock: Status: Resolved Assessment and plan: Exacerbated by acute adrenal insufficiency, as well, likely precipitated by pseudomonas RUL/RLL pneumonia, present on admission. Pseudomonas sensitivities are not available. Off pressors; shock resolved. Blood cultures are negative. White count and CRP are improving daily. Discussed with patient's neurologist - it is possible that the patient would be discharged home on a fluoroquinolone with instructions to notify neuro if MG symptoms got worse. Continue zosyn/aztreonam (day 6/total 10 days of abx). Taper steroids. (2) Multifocal pneumonia: Status: Acute Assessment and plan: Due to Pseudomonas, present on admission. Improved. Read discussion above re abx. Will give more lasix today. I attribute the O2 requirement to the fluid status. No evidence for aspiration, per speech therapy. Will require a total of 10 days of abx Continue scheduled and prn nebs. (3) Acute adrenal insufficiency: Status: Acute Assessment and plan: Change steroids to PO and continue a slow taper. (4) Pulmonary arterial hypertension: Status: Chronic Assessment and plan: Slightly fluid overloaded - will give 1 dose of PO lasix 20 mg. (5) Chronic respiratory failure with hypoxia: Status: Ruled-out Assessment and plan: Patient states she never required oxygen at home. ?chart error (6) Myasthenia gravis: Status: Chronic Assessment and plan: On chronic steroids/ receiving plasmaphoresis. Continue steroid taper, as above. Patient is contacting her neurologist to make plans as to her next treatments. (7) Atrial fibrillation: Status: Chronic Assessment and plan: Paroxysmal - rate is controlled; continue eliquis. (8) Hx of deep venous thrombosis: Status: Resolved Assessment and plan: Continue eliquis (9) Thrush, oral: Status: Acute Assessment and plan: Continue Nystatin swish and swallow (10) DVT prophylaxis: Status: Acute Assessment and plan: On therapeutic eliquis (11) Discharge planning issues: Status: Acute Assessment and plan: DNR/DNI. If too weak for discharge home, may require transfer to [facility] for plasmaphoresis Subjective Subjective Interval history since last seen: Ms Carpio states she feels weak and tired. She feels weaker than she normally would at this point from her Myasthenia gravis alone. She denies dizziness, chest pain, nausea, vomiting. Short of breath this morning when laying flat - did better sitting up. O2 sats were in the 80's sitting flat, she did require oxygen to come up to the 90's, and it is now successfully being weaned off. Exam Narrative Exam Narrative: General: Very pleasant elderly female, sitting up in a chair, A&Ox3, looks tired HEENT: EOMI, MMM, eyes do not appear droopy Cardiovascular: RRR with an occasional extra beat, no m/r/g Lungs: rales at B bases; otherwise, coarse breath sounds throughout Gastrointestinal: soft, nontender, nondistended Extremities: +1 edema BLE's, worse today, no c/c BLE's, warm feet Objective Objective Clinical Data: Abnormal lab results 02/09/20 02/09/20 Range/Units 06:07 06:07 RBC 3.48 L (4.00-5.20) m/cumm Hgb 11.6 L (12.0-15.5) g/dL Hct 35.9 L (36.0-46.0) % MCV 103.2 H (80-95) fL MCH 33.3 H (27.0-33.0) pg Plt Count 125 L (130-400) x1000/uL Absolute Neutrophils 8.14 H (1.2-6.7) k/cumm Absolute Lymphocytes 0.43 L (1.2-3.4) k/cumm Sodium 147 H (136-145) mmol/L Potassium 3.1 L (3.5-5.1) mmol/L Chloride 111 H (98-107) mmol/L BUN 26 H (7-18) mg/dL Creatinine 1.14 H (0.55-1.02) mg/dL Calcium 8.3 L (8.5-10.1) mg/dL C-Reactive Protein 5.29 H (0.0-0.3) mg/dL Vital Signs Temperature 36.8 C 02/09/20 11:19 Temperature Source Tympanic 02/09/20 11:19 Pulse 98 H 02/09/20 11:19 Pulse Rhythm Irregular 02/09/20 07:30 Pulse 86 02/05/20 13:00 Respiratory Rate 18 02/09/20 11:29 Respiratory Effort Incrsd Work of Breathing 02/09/20 07:30 Respiratory Depth Shallow 02/09/20 07:30 Respiratory Pattern Irregular 02/09/20 07:30 Blood Pressure 146/75 H 02/09/20 11:19 Blood Pressure Mean 64 02/05/20 13:00 Blood Pressure Position Sitting 02/05/20 10:40 Pulse Oximetry 99 02/09/20 11:29 Oxygen Delivery Method Nasal Cannula 02/09/20 11:29 Oxygen Flow Rate 2 02/09/20 11:29 Pain Level 3 02/09/20 11:19 Comment 02/09/20 11:19 Intake & Output 02/08/20 02/09/20 02/09/20 23:59 11:59 23:59 Intake Total 1020 / 1560 510 / 510 Output Total 1525 / 2150 575 / 575 Balance -505 / -590 -65 / -65 Intake: IV 300 / 600 150 / 150 Oral 720 / 960 360 / 360 Output: Urine 1525 / 2150 575 / 575 Other: Urine Color Yellow Pale Yellow Urine Appearance Clear Clear Urine Odor Normal None Comment urine measured with stool mixed Stool Size Small Stool Characteristics Liquid Liquid Green Voiding Methods Bedside Commode Bedside Commode Laboratory Results WBC 9.10 k/cumm (4.4-10.8) 02/09/20 06:07 RBC 3.48 m/cumm (4.00-5.20) L 02/09/20 06:07 Hgb 11.6 g/dL (12.0-15.5) L 02/09/20 06:07 Hct 35.9 % (36.0-46.0) L 02/09/20 06:07 MCV 103.2 fL (80-95) H 02/09/20 06:07 MCH 33.3 pg (27.0-33.0) H 02/09/20 06:07 MCHC 32.3 g/dL (32.0-36.0) 02/09/20 06:07 RDW 14.3 % (11.7-14.6) 02/09/20 06:07 Plt Count 125 x1000/uL (130-400) L 02/09/20 06:07 MPV 10.3 fL (8.0-11.0) 02/09/20 06:07 Immature Gran % 1.1 % 02/09/20 06:07 Neutrophils % 89.5 02/09/20 06:07 Band Neutrophils % 2.0 % 02/05/20 06:08 Lymphocytes % 4.7 02/09/20 06:07 Atypical Lymphs % 1 02/05/20 06:08 Monocytes % 4.6 02/09/20 06:07 Eosinophils % 0.0 02/09/20 06:07 Basophils % 0.1 02/09/20 06:07 Absolute Neutrophils 8.14 k/cumm (1.2-6.7) H 02/09/20 06:07 Absolute Lymphocytes 0.43 k/cumm (1.2-3.4) L 02/09/20 06:07 Absolute Monocytes 0.42 k/cumm (0.11-0.7) 02/09/20 06:07 Absolute Eosinophils 0.00 k/cumm (0.0-0.7) 02/09/20 06:07 Absolute Basophils 0.01 k/cumm (0.0-0.2) 02/09/20 06:07 Differential Comment Manual differential 02/05/20 06:08 RBC Morphology Normal 02/05/20 06:08 ESR 9 mm/hr (0-30) 02/04/20 11:15 PT 9.7 sec (9.3-11.0) 02/04/20 11:15 INR 1.0 (0.9-1.1) 02/04/20 11:15 Sodium 147 mmol/L (136-145) H 02/09/20 06:07 Potassium 3.1 mmol/L (3.5-5.1) L 02/09/20 06:07 Chloride 111 mmol/L (98-107) H 02/09/20 06:07 Carbon Dioxide 27.8 mmol/L (21.0-32.0) 02/09/20 06:07 Anion Gap 8.2 mmol/L (3-11) 02/09/20 06:07 BUN 26 mg/dL (7-18) H 02/09/20 06:07 Creatinine 1.14 mg/dL (0.55-1.02) H 02/09/20 06:07 Estimated GFR/1.73 m2 45.63 (mL/min/1.73m2) 02/09/20 06:07 Glucose 97 mg/dL (74-106) 02/09/20 06:07 Lactate 2.0 mmol/L (0.6-1.4) H 02/04/20 15:57 Calcium 8.3 mg/dL (8.5-10.1) L 02/09/20 06:07 Magnesium 1.9 mg/dL (1.8-2.4) 02/09/20 06:07 Total Bilirubin 0.6 mg/dL (0.2-1.0) 02/04/20 11:15 AST 12 U/L (15-37) L 02/04/20 11:15 ALT 13 U/L (14-59) L 02/04/20 11:15 Alkaline Phosphatase 41 U/L (46-116) L 02/04/20 11:15 C-Reactive Protein 5.29 mg/dL (0.0-0.3) H 02/09/20 06:07 NT-Pro-B Natriuret Pep 443 pg/mL (<300) H 02/04/20 11:15 Total Protein 6.1 g/dL (6.4-8.2) L 02/04/20 11:15 Albumin 3.6 g/dL (3.4-5.0) 02/04/20 11:15 Procalcitonin 0.1 ng/mL 02/04/20 11:15 Urine Color Yellow (Yellow) 02/04/20 12:30 Urine Clarity Clear (Clear) 02/04/20 12:30 Urine pH 7.0 (5-8) 02/04/20 12:30 Ur Specific [place] 1.020 (1.005-1.025) 02/04/20 12:30 Urine Protein Negative mg/dL (Negative) 02/04/20 12:30 Urine Ketones Negative mg/dL (Negative) 02/04/20 12:30 Urine Blood Negative (Negative) 02/04/20 12:30 Urine Nitrite Negative (Negative) 02/04/20 12:30 Urine Bilirubin Negative (Negative) 02/04/20 12:30 Urine Urobilinogen 0.2 EU/dL (Up TO 0.2) 02/04/20 12:30 Ur Leukocyte Esterase Negative (Negative) 02/04/20 12:30 Urine Glucose Negative mg/dL (Negative) 02/04/20 12:30 Coronavirus (PCR) Cancelled 02/04/20 11:24
--- NOTE | 2020-02-09 13:09 | PT.INTREAT ---
PT Notes Visit Reasons: SEPTIC SHOCK DUE PNA,ADRENAL INSUFFICIENCY PT Inpatient Treatment Note Date: 02/09/2020 PRECAUTIONS: Fall. Contact enteric precautions discontinued as of 02/08/2020. Activity as tolerated. Needs 1 L min of O2 for all mobility ADL performance per RT recommendation. SUBJECTIVE: Patient states that she feels weak today. She is agreeable to walking, but states that she's not sure how far she'll be able to go. OBJECTIVE: Patient on 1L supplemental O2 via nasal cannula at rest. PAIN: 0/10 BED MOBILITY/TRANSFERS Sit-stand: Supervision with oxygen supplementation Stand-sit: Supervision with oxygen supplementation GAIT Assistive Device: FWW Weight bearing: FWB Assist: SBA (wheelchair follow) Distance: 75 feet Deviation: Decreased michelle. Forward flexed trunk position with heavy reliance on UE support to FWW. VITALS: Post ambulation, SaO2 is at 92% on 1 L supplemental oxygen THEREX: Patient completed therapeutic exercises while seated in chair, as noted on flowsheet. She was instructed in independent completion for between PT sessions, and is agreeable to completion in her chair throughout the day. ASSESSMENT: Tolerated increase in ambulation distance and seated exercises without decrease in oxygen saturation. Although she feels more fatigued today, her activity tolerance shows improvement. Patient was encouraged by her progress. PLAN: Continue progressing ambulation and strengthening efforts as patient tolerates. TREATMENT CODE/TIME: 12:35?1:05 ([id number], [id number]) Shobha Adame, PT, DPT [facility]
[2020-02-09] MEDS: Furosemide 40 MG/4 ML VIAL IVP (16:36)
[2020-02-09] MEDS: Patch Removal 1 EACH TP (20:26)
[2020-02-09] MEDS: Melatonin 3 MG TAB 9 MG PO (21:25)
[2020-02-10] VITALS (11 sets, daily range): BP systolic 131–149; BP diastolic 73–82; PULSE 75–104; RESP 2–24; TEMP 36.1–36.6; O2SAT 88–99
[2020-02-10] MEDS: PIPERACILLIN/TAZO 3.375 GM in Normal Saline 50 ML IVPB ×4 (01:14→20:13)
[2020-02-10] MEDS: Normal Saline Flush 10 ML SYR IVP ×3 (05:42→15:59)
[2020-02-10] MEDS: Nystatin 500000 UNITS/5 ML SUSP 5ML CUP PO ×5 (05:42→21:12)
[2020-02-10] MEDS: Albuterol/Ipratropium 3 ML UPD VIAL UPD ×3 (05:43→18:23)
[2020-02-10 07:06] LABS: Abs Immature Grans 0.14 k/cumm (0.0-0.09); Absolute Basophil Count 0.01 k/cumm (0.0-0.2); Absolute Eosinophil Count 0.02 k/cumm (0.0-0.7); Absolute Lymphocyte Count 0.47 k/cumm (1.2-3.4); Absolute Monocyte Count 0.39 k/cumm (0.11-0.7); Absolute Neutrophil Count 7.03 k/cumm (1.2-6.7); Basophils % 0.1; Eosinophils % 0.2; HCT 39.7 % (36.0-46.0); HGB 12.7 g/dL (12.0-15.5); Immature Grans % 1.7 %; Lymphocytes % 5.8; Mean Corpuscular Volume 103.1 fL (80-95); Mean Platelet Volume 9.7 fL (8.0-11.0); Monocytes % 4.8; Neutrophils % 87.4; Platelet Count 142 x1000/uL (130-400); RBC 3.85 m/cumm (4.00-5.20); RBC Distribution Width 14.1 % (11.7-14.6); White Blood Cell Count 8.06 k/cumm (4.4-10.8)
[2020-02-10 07:17] LABS: Anion Gap 8.6 mmol/L (3-11); BUN 21 mg/dL (7-18); CO2 35.4 mmol/L (21.0-32.0); CREATININE 1.21 mg/dL (0.55-1.02); Calcium 8.5 mg/dL (8.5-10.1); Chloride 103 mmol/L (98-107); Glucose 88 mg/dL (74-106); Magnesium 1.6 mg/dL (1.8-2.4); Sodium 147 mmol/L (136-145)
[2020-02-10 07:26] LABS: Potassium 2.1 mmol/L (3.5-5.1)
[2020-02-10 08:16] LABS: C-Reactive Protein 5.49 mg/dL (0.0-0.3)
[2020-02-10] MEDS: Lidocaine 5% Patch 1 PATCH TD (08:34)
[2020-02-10] MEDS: Ferrous Sulfate 325 MG TAB PO ×2 (08:35→18:21)
[2020-02-10] MEDS: Apixaban 2.5 MG TAB PO ×2 (08:35→20:12)
[2020-02-10] MEDS: Folic Acid 1 MG TAB PO (08:35)
[2020-02-10] MEDS: MAGNESIUM SULFATE 2 GM/50 ML BAG IVPB (08:35)
[2020-02-10] MEDS: Pantoprazole 40 MG VIAL IVP (08:35)
[2020-02-10] MEDS: predniSONE 20 MG TAB 40 MG PO (08:35)
[2020-02-10] MEDS: Methadone 5 MG TAB PO (08:36)
[2020-02-10] MEDS: Gabapentin 300 MG CAP 600 MG PO ×2 (08:36→20:12)
[2020-02-10] MEDS: Multivitamin TAB 1 TAB PO (08:36)
[2020-02-10] MEDS: guaiFENesin 600 MG TABCR PO ×2 (08:36→20:12)
[2020-02-10] MEDS: Potassium Chloride 20 MEQ TABCR 40 MEQ PO ×3 (08:36→20:13)
[2020-02-10] MEDS: POTASSIUM CHLORIDE 20 MEQ/100 ML BAG 50 MEQ IVPB ×2 (09:42→12:39)
--- NOTE | 2020-02-10 11:26 | PDOC.CMPRO ---
- If Service Date Differs Date of service: 02/10/20 Time of Service: 11:26 Care Management Progress Note S/O:Tanja was sitting up in a chair when CM came to see her. She was pleasant and open to conversation with CM. Tanja shared that she is a bit tired today. She stated that she did not sleep much last night as she gets woken up about every 2 hours for something. She said she is also feeling the effects of not receiving her plasmaphoresis this week. She stated that usually within 24 hours after treatments she begins to feel more energized. Tanja also shared stories of her career and travels . 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 She is very proud of the study and her role in its completion. Tanja is looking forward to returning home. She enjoys being with her family and quilting is her passion. A: Tanja is an 84 year old woman admitted with sepsis on 02/04/20 P: Tanja will discharge home with resumption of daily wound care. She will follow up with her PCP. CM will continue to offer support to patient, family and care team regarding discharge planning and disposition.
--- NOTE | 2020-02-10 12:10 | PT.INTREAT ---
PT Notes Visit Reasons: SEPTIC SHOCK DUE PNA,ADRENAL INSUFFICIENCY PT Inpatient Treatment Note Date: 02/10/2020 PRECAUTIONS: Fall. Contact enteric precautions discontinued as of 02/08/2020. Activity as tolerated. Needs 1 L min of O2 for all mobility ADL performance per RT recommendation. SUBJECTIVE: Patient states that she feels weak today. She would like to walk, but doesn't feel she'll be able to go far. OBJECTIVE: Patient on 1L supplemental O2 via nasal cannula at rest. PAIN: 0/10 BED MOBILITY/TRANSFERS Sit-stand: Supervision with oxygen supplementation Stand-sit: Supervision with oxygen supplementation GAIT Assistive Device: FWW Weight bearing: FWB Assist: SBA (wheelchair follow) Distance: 50 feet Deviation: Decreased michelle. Forward flexed trunk position with heavy reliance on UE support to FWW. Once patient fatigues, she sits abruptly to W/C, with limited safety awareness. She complains of increasing left UE pain at her IV site. Nursing was alerted and assisting patient at end of session. VITALS: Post ambulation, SaO2 is at 92% on 1 L supplemental oxygen THEREX: Patient unable to tolerate therex today due to pain. ASSESSMENT: Decreased activity tolerance today. PLAN: Continue progressing ambulation and strengthening efforts as patient tolerates. TREATMENT CODE/TIME: 35 minutes ([id number]) Shobha Adame, PT, DPT [facility]
[2020-02-10 12:27] LABS: Anion Gap 7.8 mmol/L (3-11); BUN 21 mg/dL (7-18); CO2 34.2 mmol/L (21.0-32.0); CREATININE 1.27 mg/dL (0.55-1.02); Calcium 8.8 mg/dL (8.5-10.1); Chloride 101 mmol/L (98-107); Estimated GFR 40.29 (mL/min/1.73m2); Glucose 96 mg/dL (74-106); Sodium 143 mmol/L (136-145)
[2020-02-10 12:31] LABS: Potassium 2.8 mmol/L (3.5-5.1)
--- NOTE | 2020-02-10 13:08 | W.NUTRFU ---
Date of service: 02/10/20 Time of Service: 13:08 Nutritional Follow up NOTE: Tanja continues meet nutrient needs by mouth with meal intake (ave 50%), 2 boosts daily, osbaldo - 2-3 packets daily to meet increased nutrient needs for optimal wound healing. Have noted weight loss of 4 kg since admission. May be fluid shifts. No new nutritional recommendations at this time. Time Spent in Nutritional Counseling and Treatment: 5 min spent face to face
--- NOTE | 2020-02-10 15:12 | W.PM.PROGNOT ---
Date of Service Date of service: 02/10/20 Time of Service: 15:12 Assessment and Plan Assessment and plan (1) Septic shock: Status: Resolved Assessment and plan: Exacerbated by acute adrenal insufficiency, as well, likely precipitated by pseudomonas RUL/RLL pneumonia, present on admission. Pseudomonas sensitivities are not available yet. Awaiting. Off pressors; shock resolved. Blood cultures are negative. White count and CRP are improving daily. Discussed with patient's neurologist - it is possible that the patient would be discharged home on a fluoroquinolone with instructions to notify neuro if MG symptoms got worse. Continue zosyn/aztreonam (day 6/total 10 days of abx). Taper steroids. (2) Multifocal pneumonia: Status: Acute Assessment and plan: Due to Pseudomonas, present on admission. Improved. Read discussion above re abx. Repeat CXR. Continue diuresis. I attribute the O2 requirement to the fluid status. No evidence for aspiration, per speech therapy. Will require a total of 10 days of abx Continue scheduled and prn nebs. (3) Acute adrenal insufficiency: Status: Acute Assessment and plan: Continue a slow PO steroid taper. (4) Pulmonary arterial hypertension: Status: Chronic Assessment and plan: Continue diuresis. (5) Chronic respiratory failure with hypoxia: Status: Ruled-out Assessment and plan: Patient states she never required oxygen at home. ?chart error (6) Myasthenia gravis: Status: Chronic Assessment and plan: On chronic steroids/ receiving plasmaphoresis. Continue steroid taper, as above. Patient is contacting her neurologist to make plans as to her next treatments. (7) Atrial fibrillation: Status: Chronic Assessment and plan: Paroxysmal - rate is controlled; continue eliquis. (8) Hx of deep venous thrombosis: Status: Resolved Assessment and plan: Continue eliquis (9) Thrush, oral: Status: Acute Assessment and plan: Continue Nystatin swish and swallow (10) DVT prophylaxis: Status: Acute Assessment and plan: On therapeutic eliquis (11) Discharge planning issues: Status: Acute Assessment and plan: DNR/DNI. If too weak for discharge home, may require transfer to [facility] for plasmaphoresis Subjective Subjective Interval history since last seen: Ms Carpio states that she had a bad morning again, but is doing much better now. She specifically reports feeling tired and short of breath, more so when laying down, much better when sitting up. She does need oxygen at rest, saturating 85% on room air. She reports difficulty swallowing this morning momentarily, thinking this is her myasthenia. She specifically denies breathing difficulties with her usual myasthenia. No other complaints. Exam Narrative Exam Narrative: General: Very pleasant elderly female, sitting up in a chair, A&Ox3, looks better to me HEENT: EOMI, MMM, eyes do not appear droopy Cardiovascular: RRR, no m/r/g Lungs: rales at B bases; worse on the left. Gastrointestinal: soft, nontender, nondistended Extremities: +1 edema BLE's, wearing TEDs, warm feet Objective Objective Clinical Data: Abnormal lab results 02/10/20 02/10/20 02/10/20 Range/Units 06:20 06:20 12:02 RBC 3.85 L (4.00-5.20) m/cumm MCV 103.1 H (80-95) fL Absolute Neutrophils 7.03 H (1.2-6.7) k/cumm Absolute Lymphocytes 0.47 L (1.2-3.4) k/cumm Sodium 147 H (136-145) mmol/L Potassium 2.1 L* D 2.8 L* (3.5-5.1) mmol/L Carbon Dioxide 35.4 H 34.2 H (21.0-32.0) mmol/L BUN 21 H 21 H (7-18) mg/dL Creatinine 1.21 H 1.27 H (0.55-1.02) mg/dL Magnesium 1.6 L (1.8-2.4) mg/dL C-Reactive Protein 5.49 H (0.0-0.3) mg/dL Vital Signs Temperature 36.4 C L 02/10/20 09:36 Temperature Source Tympanic 02/10/20 04:00 Pulse 104 H 02/10/20 12:56 Pulse Rhythm Irregular 02/10/20 10:49 Pulse 86 02/05/20 13:00 Respiratory Rate 18 02/10/20 12:56 Respiratory Effort Incrsd Work of Breathing 02/10/20 10:49 Respiratory Depth Shallow 02/10/20 10:49 Respiratory Pattern Irregular 02/10/20 10:49 Blood Pressure 131/73 02/10/20 09:36 Blood Pressure Mean 64 02/05/20 13:00 Blood Pressure Position Sitting 02/05/20 10:40 Pulse Oximetry 98 02/10/20 12:57 Oxygen Delivery Method Nasal Cannula 02/10/20 12:57 Oxygen Flow Rate 1 02/10/20 12:57 Pain Level 3 02/10/20 09:39 Comment 02/10/20 09:36 Intake & Output 02/09/20 02/10/20 02/10/20 23:59 11:59 23:59 Intake Total 590 / 1250 330 / 330 Output Total 1450 / 2025 500 / 500 Balance -860 / -775 -170 / -170 Weight 59.4 kg Intake: IV 350 / 650 210 / 210 Oral 240 / 600 120 / 120 Output: Urine 1450 / 5 500 / 500 Other: Urine Color Pale Yellow Urine Appearance Clear Clear Urine Odor Normal None Comment mixed with loose stool Stool Size Smear Small Stool Characteristics Liquid Soft Liquid Voiding Methods Bedside Commode Bedside Commode Laboratory Results WBC 8.06 k/cumm (4.4-10.8) 02/10/20 06:20 RBC 3.85 m/cumm (4.00-5.20) L 02/10/20 06:20 Hgb 12.7 g/dL (12.0-15.5) 02/10/20 06:20 Hct 39.7 % (36.0-46.0) 02/10/20 06:20 MCV 103.1 fL (80-95) H 02/10/20 06:20 MCH 33.0 pg (27.0-33.0) 02/10/20 06:20 MCHC 32.0 g/dL (32.0-36.0) 02/10/20 06:20 RDW 14.1 % (11.7-14.6) 02/10/20 06:20 Plt Count 142 x1000/uL (130-400) 02/10/20 06:20 MPV 9.7 fL (8.0-11.0) 02/10/20 06:20 Immature Gran % 1.7 % 02/10/20 06:20 Neutrophils % 87.4 02/10/20 06:20 Band Neutrophils % 2.0 % 02/05/20 06:08 Lymphocytes % 5.8 02/10/20 06:20 Atypical Lymphs % 1 02/05/20 06:08 Monocytes % 4.8 02/10/20 06:20 Eosinophils % 0.2 02/10/20 06:20 Basophils % 0.1 02/10/20 06:20 Absolute Neutrophils 7.03 k/cumm (1.2-6.7) H 02/10/20 06:20 Absolute Lymphocytes 0.47 k/cumm (1.2-3.4) L 02/10/20 06:20 Absolute Monocytes 0.39 k/cumm (0.11-0.7) 02/10/20 06:20 Absolute Eosinophils 0.02 k/cumm (0.0-0.7) 02/10/20 06:20 Absolute Basophils 0.01 k/cumm (0.0-0.2) 02/10/20 06:20 Differential Comment Manual differential 02/05/20 06:08 RBC Morphology Normal 02/05/20 06:08 ESR 9 mm/hr (0-30) 02/04/20 11:15 PT 9.7 sec (9.3-11.0) 02/04/20 11:15 INR 1.0 (0.9-1.1) 02/04/20 11:15 Sodium 143 mmol/L (136-145) 02/10/20 12:02 Potassium 2.8 mmol/L (3.5-5.1) L* 02/10/20 12:02 Chloride 101 mmol/L (98-107) 02/10/20 12:02 Carbon Dioxide 34.2 mmol/L (21.0-32.0) H 02/10/20 12:02 Anion Gap 7.8 mmol/L (3-11) 02/10/20 12:02 BUN 21 mg/dL (7-18) H 02/10/20 12:02 Creatinine 1.27 mg/dL (0.55-1.02) H 02/10/20 12:02 Estimated GFR/1.73 m2 40.29 (mL/min/1.73m2) 02/10/20 12:02 Glucose 96 mg/dL (74-106) 02/10/20 12:02 Lactate 2.0 mmol/L (0.6-1.4) H 02/04/20 15:57 Calcium 8.8 mg/dL (8.5-10.1) 02/10/20 12:02 Magnesium 1.6 mg/dL (1.8-2.4) L 02/10/20 06:20 Total Bilirubin 0.6 mg/dL (0.2-1.0) 02/04/20 11:15 AST 12 U/L (15-37) L 02/04/20 11:15 ALT 13 U/L (14-59) L 02/04/20 11:15 Alkaline Phosphatase 41 U/L (46-116) L 02/04/20 11:15 C-Reactive Protein 5.49 mg/dL (0.0-0.3) H 02/10/20 06:20 NT-Pro-B Natriuret Pep 443 pg/mL (<300) H 02/04/20 11:15 Total Protein 6.1 g/dL (6.4-8.2) L 02/04/20 11:15 Albumin 3.6 g/dL (3.4-5.0) 02/04/20 11:15 Procalcitonin 0.1 ng/mL 02/04/20 11:15 Urine Color Yellow (Yellow) 02/04/20 12:30 Urine Clarity Clear (Clear) 02/04/20 12:30 Urine pH 7.0 (5-8) 02/04/20 12:30 Ur Specific [place] 1.020 (1.005-1.025) 02/04/20 12:30 Urine Protein Negative mg/dL (Negative) 02/04/20 12:30 Urine Ketones Negative mg/dL (Negative) 02/04/20 12:30 Urine Blood Negative (Negative) 02/04/20 12:30 Urine Nitrite Negative (Negative) 02/04/20 12:30 Urine Bilirubin Negative (Negative) 02/04/20 12:30 Urine Urobilinogen 0.2 EU/dL (Up TO 0.2) 02/04/20 12:30 Ur Leukocyte Esterase Negative (Negative) 02/04/20 12:30 Urine Glucose Negative mg/dL (Negative) 02/04/20 12:30 Coronavirus (PCR) Cancelled 02/04/20 11:24
[2020-02-10] MEDS: Furosemide 20 MG/2 ML VIAL IVP (15:59)
--- NOTE | 2020-02-10 19:18 | DI.RAD_ITS ---
EXAM: XR PORTABLE CHEST AP CLINICAL HISTORY: follow up PNA, ?CHF TECHNIQUE: COMPARISON: CHEST 2 VIEWS PA,LAT from 08/06/2017 XR PORTABLE CHEST AP from 02/04/2020 XR PORTABLE CHEST AP from 02/07/2020 FINDINGS: Examination is compared with prior study of 02/06. Note is again made of cardiomegaly and multifocal intrapulmonary infiltrates most prominent in right upper lung field. There is been little interval change in appearance comparison with the prior study. Underlying COPD and mild diffuse fibrotic ledbetter ges also appear to be present as seen on prior examinations. IMPRESSION: Stable appearance of infiltrates since February 06. Underlying COPD and fibrosis.
--- NOTE | 2020-02-10 19:34 | DI.VRAD_ITS ---
PROCEDURE INFORMATION: Exam: XR Chest, 1 View Exam date and time: 02/10/2020 7:19 PM Age: 84 years old Clinical indication: Other: Pna; Additional info: Follow up pneumonia, ? chf TECHNIQUE: Imaging protocol: XR of the chest Views: 1 view. COMPARISON: CR XR PORTABLE CHEST AP 02/07/2020 10:25 AM FINDINGS: Lungs: Mild parenchymal disease again seen in right lower lobe likely infiltrates. Left lung is well aerated. Flattening of bilateral hemidiaphragms likely COPD changes. Pleural space: Right upper lobe parenchymal disease with pleural thickening and scarring again seen. Heart/Mediastinum: Unremarkable. No cardiomegaly. Bones/joints: Unremarkable. IMPRESSION: 1. Right upper lobe parenchymal disease with pleural thickening and scarring again seen. No significant interval change compared to prior study. 2. Mild parenchymal disease again seen in right lower lobe likely infiltrates. No interval change compared to prior study. 3. Flattening of bilateral hemidiaphragms likely COPD changes. Dictated and Authenticated by: Po Canseco MD. Ordering:LATRICE Cash MD
[2020-02-10] MEDS: Patch Removal 1 EACH TP (20:45)
[2020-02-10] MEDS: Melatonin 3 MG TAB 9 MG PO (21:12)
[2020-02-11] VITALS (15 sets, daily range): BP systolic 110–139; BP diastolic 68–89; PULSE 71–99; RESP 1–20; TEMP 36.3–36.7; O2SAT 91–99
[2020-02-11] MEDS: Albuterol/Ipratropium 3 ML UPD VIAL UPD ×4 (00:34→18:03)
[2020-02-11] MEDS: Normal Saline Flush 10 ML SYR IVP ×4 (00:36→16:40)
[2020-02-11] MEDS: PIPERACILLIN/TAZO 3.375 GM in Normal Saline 50 ML IVPB ×4 (02:22→20:34)
[2020-02-11] MEDS: Potassium Chloride 20 MEQ TABCR 40 MEQ PO (03:24)
[2020-02-11] MEDS: Acetaminophen 325 MG TAB PO ×2 (05:47→13:12)
[2020-02-11 07:12] LABS: Abs Immature Grans 0.11 k/cumm (0.0-0.09); Absolute Basophil Count 0.01 k/cumm (0.0-0.2); Absolute Eosinophil Count 0.05 k/cumm (0.0-0.7); Absolute Lymphocyte Count 0.56 k/cumm (1.2-3.4); Absolute Monocyte Count 0.22 k/cumm (0.11-0.7); Absolute Neutrophil Count 5.77 k/cumm (1.2-6.7); Basophils % 0.1; Eosinophils % 0.7; HCT 38.7 % (36.0-46.0); HGB 12.9 g/dL (12.0-15.5); Immature Grans % 1.6 %; Lymphocytes % 8.3; Mean Corp. HGB Concentration 33.3 g/dL (32.0-36.0); Mean Corpuscular Volume 102.1 fL (80-95); Mean Platelet Volume 10.6 fL (8.0-11.0); Monocytes % 3.3; Platelet Count 147 x1000/uL (130-400); RBC 3.79 m/cumm (4.00-5.20); RBC Distribution Width 14.5 % (11.7-14.6); White Blood Cell Count 6.72 k/cumm (4.4-10.8)
[2020-02-11 07:17] LABS: Anion Gap 7.9 mmol/L (3-11); BUN 26 mg/dL (7-18); C-Reactive Protein 7.67 mg/dL (0.0-0.3); CO2 33.1 mmol/L (21.0-32.0); CREATININE 1.15 mg/dL (0.55-1.02); Calcium 8.5 mg/dL (8.5-10.1); Chloride 103 mmol/L (98-107); Estimated GFR 45.17 (mL/min/1.73m2); Glucose 80 mg/dL (74-106); Sodium 144 mmol/L (136-145)
--- NOTE | 2020-02-11 07:46 | PDOC.CMPRO ---
Care Management Progress Note S/O: Tanja remains pleasant in interaction and continues to look forward to returning home. She is on room air this morning, and doing well with PT per their report. MD reviewing IV ABX needs for discharge timing consideration. CM continues to follow. A: Tanja is an 84 year old woman admitted with septic shock due to pneumonia, adrenal insufficiency on 02/04/20 P: Tanja continues diuresis, steroids are being tapered and she is on day 8 of 10 days of IV ABX (zosyn/aztreonam), per MD. Per MD discussion with Tanja's neurologist, possible discharge home on a fluoroquinolone with instructions to notify neuro if MG symptoms got worse. Tanja will discharge home with resumption of daily wound care and follow up with her PCP and plan of care. CM will continue to offer support to patient, family and care team regarding discharge planning and disposition.
[2020-02-11] MEDS: Pantoprazole 40 MG VIAL IVP (08:31)
[2020-02-11] MEDS: Furosemide 20 MG/2 ML VIAL IVP ×2 (08:35→16:39)
[2020-02-11] MEDS: guaiFENesin 600 MG TABCR PO ×2 (08:43→20:34)
[2020-02-11] MEDS: Multivitamin TAB 1 TAB PO (08:43)
[2020-02-11] MEDS: Gabapentin 300 MG CAP 600 MG PO ×2 (08:44→20:33)
[2020-02-11] MEDS: Methadone 5 MG TAB PO (08:45)
[2020-02-11] MEDS: Apixaban 2.5 MG TAB PO ×2 (08:45→20:34)
[2020-02-11] MEDS: predniSONE 20 MG TAB 40 MG PO (08:46)
[2020-02-11] MEDS: Lidocaine 5% Patch 1 PATCH TD (08:47)
[2020-02-11] MEDS: Ferrous Sulfate 325 MG TAB PO ×2 (08:47→18:03)
[2020-02-11] MEDS: Folic Acid 1 MG TAB PO (08:47)
--- NOTE | 2020-02-11 11:50 | PT.INTREAT ---
PT Notes Visit Reasons: SEPTIC SHOCK DUE PNA,ADRENAL INSUFFICIENCY PT Inpatient Treatment Note Date: 02/11/2020 PRECAUTIONS: Fall. Contact enteric precautions discontinued as of 02/08/2020. Activity as tolerated. Needs 1 L min of O2 for all mobility ADL performance per RT recommendation. SUBJECTIVE: Patient states that she feels good today. She states that RT has requested that she try walking without O2. She's on room air at initiation of session. OBJECTIVE: PAIN: 0/10 BED MOBILITY/TRANSFERS Sit-stand: Supervision Stand-sit: Supervision GAIT Assistive Device: FWW Weight bearing: FWB Assist: supervision Distance: 25'x2; 10'x2 Deviation: Decreased michelle. Forward flexed trunk position with heavy reliance on UE support to FWW. ADLs: Patient was able to transfer to the commode and perform all self-care independently. VITALS: Patient resting at 90% SaO2 on room air. Post-ambulation, she is at 96% by ear probe. After second repetition of walking, she's 94%. THEREX: Progressed ambulation to multiple short distance walks with close monitoring of vitals, and with elimination of w/c follow. She tolerates this well. She was provided with handouts for home completion of seated exercises for use upon return home. ASSESSMENT: Significantly improved mobility today, with good maintenance of oxygen saturation on room air. We had discussed the possibility of home health PT upon discharge, however patient would like to limit the number of people coming into her home to reduce her risk for acquiring COVID 19. PLAN: We will continue progressing therapeutic exercises during her stay, to maximize safety and mobility and allow for safe transition back home once medically stable. TREATMENT CODE/TIME: 30 minutes ([id number]) Shobha Adame, PT, DPT [facility]
--- NOTE | 2020-02-11 12:22 | W.PM.PROGNOT ---
Date of Service Date of service: 02/11/20 Time of Service: 12:22 Assessment and Plan Assessment and plan (1) Septic shock: Status: Resolved Assessment and plan: Exacerbated by acute adrenal insufficiency, as well, likely precipitated by pseudomonas RUL/RLL pneumonia, present on admission. Now stabilized. Off pressors; shock resolved. Blood cultures are negative. Discussed with patient's neurologist - it is possible that the patient would be discharged home on a fluoroquinolone with instructions to notify neuro if MG symptoms got worse, but at this point we will continue on IV antibiotics. Continue zosyn/aztreonam (day 8/total 10 days of abx). Taper steroids. (2) Multifocal pneumonia: Status: Acute Assessment and plan: Due to Pseudomonas, present on admission. Improved. Pseudomonas sensitivities are not available yet. Still awaiting. Read discussion above re abx. Continue diuresis. I attribute the O2 requirement to the fluid status. No evidence for aspiration, per speech therapy. Will require a total of 10 days of abx Continue scheduled and prn nebs. (3) Acute adrenal insufficiency: Status: Acute Assessment and plan: Continue a slow PO steroid taper. (4) Myasthenia gravis: Status: Chronic Assessment and plan: On chronic steroids/ receiving plasmaphoresis. Plasmapheresis skipped this week given acute illness, monitor clinically and plan to resume next week. UV. Continue steroid taper, as above. (5) Atrial fibrillation: Status: Chronic Assessment and plan: Paroxysmal - rate is controlled; continue eliquis. (6) Hx of deep venous thrombosis: Status: Resolved Assessment and plan: Continue eliquis (7) Thrush, oral: Status: Acute Assessment and plan: Continue Nystatin swish and swallow for another 2 days as clinically resolved today. (8) DVT prophylaxis: Status: Acute Assessment and plan: On therapeutic eliquis (9) Discharge planning issues: Status: Acute Assessment and plan: DNR/DNI. Improving, but after discussion with family they do not feel she would be safe at home. Continue inpatient with IV antibiotics for Pseudomonas. If she gets weaker due to myasthenia,, may require transfer to [facility] for plasmaphoresis Subjective Subjective Patient reports: voiding w/o difficulty; denies vomiting and fever Interval history since last seen: 24 hr: off oxygen this morning Feeling better, shortness of breath improving. Still getting loose stools. Her appetite is been good, but she is drinking boost 3 times a day. Did well walking with physical therapy this morning. The rash improved. Exam Narrative Exam Narrative: General: Very pleasant elderly female, sitting up in a chair, head hangs down when not talking. A&Ox3. HEENT: EOMI, MMM, no thrush visible Cardiovascular: RRR, no m/r/g Lungs: rales at B bases; worse on the left. Gastrointestinal: soft, nontender, nondistended Extremities: Trace edema BLE's, wearing TEDs, warm feet Objective Objective Clinical Data: Abnormal lab results 02/10/20 02/11/20 02/11/20 Range/Units 12:02 06:30 06:30 RBC 3.79 L (4.00-5.20) m/cumm MCV 102.1 H (80-95) fL MCH 34.0 H (27.0-33.0) pg Absolute Lymphocytes 0.56 L (1.2-3.4) k/cumm Potassium 2.8 L* (3.5-5.1) mmol/L Carbon Dioxide 34.2 H 33.1 H (21.0-32.0) mmol/L BUN 21 H 26 H (7-18) mg/dL Creatinine 1.27 H 1.15 H (0.55-1.02) mg/dL C-Reactive Protein 7.67 H (0.0-0.3) mg/dL Vital Signs Temperature 36.7 C 02/11/20 11:31 Temperature Source Tympanic 02/11/20 11:31 Pulse 71 02/11/20 11:31 Pulse Rhythm Irregular 02/11/20 10:40 Pulse 86 02/05/20 13:00 Respiratory Rate 20 02/11/20 11:31 Respiratory Effort 02/10/20 15:20 Respiratory Depth Normal 02/11/20 10:40 Respiratory Pattern Normal 02/11/20 10:40 Blood Pressure 110/68 02/11/20 11:31 Blood Pressure Mean 64 02/05/20 13:00 Blood Pressure Position Sitting 02/05/20 10:40 Pulse Oximetry 91 L 02/11/20 11:31 Oxygen Delivery Method Room Air 02/11/20 11:31 Oxygen Flow Rate 0 02/11/20 11:31 Pain Level 5 02/11/20 08:55 Comment 02/11/20 11:31 Intake & Output 02/10/20 02/11/20 02/11/20 23:59 11:59 23:59 Intake Total 460 / 890 250 / 250 Output Total 500 / 1000 Balance -40 / -110 250 / 250 Weight 59.2 kg Intake: IV 220 / 530 250 / 250 Oral 240 / 360 Output: Urine 500 / 1000 Other: Urine Color Pale Yellow Urine Appearance Clear Comment void x 1, mixed with liquid stool. Stool Size Small Moderate Stool Characteristics Liquid Liquid Brown Brown Black Voiding Methods Bedpan Bedside Commode Laboratory Results WBC 6.72 k/cumm (4.4-10.8) 02/11/20 06:30 RBC 3.79 m/cumm (4.00-5.20) L 02/11/20 06:30 Hgb 12.9 g/dL (12.0-15.5) 02/11/20 06:30 Hct 38.7 % (36.0-46.0) 02/11/20 06:30 MCV 102.1 fL (80-95) H 02/11/20 06:30 MCH 34.0 pg (27.0-33.0) H 02/11/20 06:30 MCHC 33.3 g/dL (32.0-36.0) 02/11/20 06:30 RDW 14.5 % (11.7-14.6) 02/11/20 06:30 Plt Count 147 x1000/uL (130-400) 02/11/20 06:30 MPV 10.6 fL (8.0-11.0) 02/11/20 06:30 Immature Gran % 1.6 % 02/11/20 06:30 Neutrophils % 86.0 02/11/20 06:30 Band Neutrophils % 2.0 % 02/05/20 06:08 Lymphocytes % 8.3 02/11/20 06:30 Atypical Lymphs % 1 02/05/20 06:08 Monocytes % 3.3 02/11/20 06:30 Eosinophils % 0.7 02/11/20 06:30 Basophils % 0.1 02/11/20 06:30 Absolute Neutrophils 5.77 k/cumm (1.2-6.7) 02/11/20 06:30 Absolute Lymphocytes 0.56 k/cumm (1.2-3.4) L 02/11/20 06:30 Absolute Monocytes 0.22 k/cumm (0.11-0.7) 02/11/20 06:30 Absolute Eosinophils 0.05 k/cumm (0.0-0.7) 02/11/20 06:30 Absolute Basophils 0.01 k/cumm (0.0-0.2) 02/11/20 06:30 Differential Comment Manual differential 02/05/20 06:08 RBC Morphology Normal 02/05/20 06:08 ESR 9 mm/hr (0-30) 02/04/20 11:15 PT 9.7 sec (9.3-11.0) 02/04/20 11:15 INR 1.0 (0.9-1.1) 02/04/20 11:15 Sodium 144 mmol/L (136-145) 02/11/20 06:30 Potassium 4.0 mmol/L (3.5-5.1) D 02/11/20 06:30 Chloride 103 mmol/L (98-107) 02/11/20 06:30 Carbon Dioxide 33.1 mmol/L (21.0-32.0) H 02/11/20 06:30 Anion Gap 7.9 mmol/L (3-11) 02/11/20 06:30 BUN 26 mg/dL (7-18) H 02/11/20 06:30 Creatinine 1.15 mg/dL (0.55-1.02) H 02/11/20 06:30 Estimated GFR/1.73 m2 45.17 (mL/min/1.73m2) 02/11/20 06:30 Glucose 80 mg/dL (74-106) 02/11/20 06:30 Lactate 2.0 mmol/L (0.6-1.4) H 02/04/20 15:57 Calcium 8.5 mg/dL (8.5-10.1) 02/11/20 06:30 Magnesium 2.0 mg/dL (1.8-2.4) 02/11/20 06:30 Total Bilirubin 0.6 mg/dL (0.2-1.0) 02/04/20 11:15 AST 12 U/L (15-37) L 02/04/20 11:15 ALT 13 U/L (14-59) L 02/04/20 11:15 Alkaline Phosphatase 41 U/L (46-116) L 02/04/20 11:15 C-Reactive Protein 7.67 mg/dL (0.0-0.3) H 02/11/20 06:30 NT-Pro-B Natriuret Pep 443 pg/mL (<300) H 02/04/20 11:15 Total Protein 6.1 g/dL (6.4-8.2) L 02/04/20 11:15 Albumin 3.6 g/dL (3.4-5.0) 02/04/20 11:15 Procalcitonin 0.1 ng/mL 02/04/20 11:15 Urine Color Yellow (Yellow) 02/04/20 12:30 Urine Clarity Clear (Clear) 02/04/20 12:30 Urine pH 7.0 (5-8) 02/04/20 12:30 Ur Specific [place] 1.020 (1.005-1.025) 02/04/20 12:30 Urine Protein Negative mg/dL (Negative) 02/04/20 12:30 Urine Ketones Negative mg/dL (Negative) 02/04/20 12:30 Urine Blood Negative (Negative) 02/04/20 12:30 Urine Nitrite Negative (Negative) 02/04/20 12:30 Urine Bilirubin Negative (Negative) 02/04/20 12:30 Urine Urobilinogen 0.2 EU/dL (Up TO 0.2) 02/04/20 12:30 Ur Leukocyte Esterase Negative (Negative) 02/04/20 12:30 Urine Glucose Negative mg/dL (Negative) 02/04/20 12:30 Coronavirus (PCR) Cancelled 02/04/20 11:24
[2020-02-11] MEDS: Nystatin 500000 UNITS/5 ML SUSP 5ML CUP PO ×3 (13:12→21:53)
--- NOTE | 2020-02-11 16:22 | NUR.NOTE ---
Nursing Note: I reviewed the documentation for Tony Bustamante RN, and found it acceptable and complete
[2020-02-11] MEDS: Patch Removal 1 EACH TP (20:34)
[2020-02-11] MEDS: Melatonin 3 MG TAB 9 MG PO (21:53)
[2020-02-12] MEDS: PIPERACILLIN/TAZO 3.375 GM in Normal Saline 50 ML IVPB ×3 (01:35→14:20)
[2020-02-12] MEDS: Acetaminophen 325 MG TAB PO (02:55)
[2020-02-12 07:30] VITALS: BP 135/74; PULSE 95; RESP 16; TEMP 35.8; O2SAT 91
--- NOTE | 2020-02-12 08:34 | CMPROGNOTE_ITS ---
Care Management Progress Note S/O: Tanja remains pleasant in interaction and continues to look forward to returning home. CM provided options for her family to acquire a commode prior to discharge. She is on room air this morning, and doing well with PT per their report. MD reviewing IV ABX needs for discharge timing consideration. CM continues to follow. A: Tanja is an 84 year old woman admitted with septic shock due to pneumonia, adrenal insufficiency on 02/04/20 P: Tanja continues diuresis, steroids are being tapered and she is on day 9 of 10 days of IV ABX (zosyn/aztreonam), per MD. Per MD discussion with Tanja's neurologist, possible discharge home on a fluoroquinolone with instructions to notify neuro if MG symptoms got worse. Tanja will discharge home with resumption of daily wound care and follow up with her PCP and plan of care. CM will continue to offer support to patient, family and care team regarding discharge planning and disposition. Options for commode offered, Tanja reported her family would be going to [facility] to retrieve one. She will transport via private vehicle with family.
[2020-02-12] MEDS: Pantoprazole 40 MG VIAL IVP (09:03)
[2020-02-12] MEDS: Furosemide 20 MG/2 ML VIAL IVP (09:04)
[2020-02-12] MEDS: Lidocaine 5% Patch 1 PATCH TD (09:04)
[2020-02-12] MEDS: guaiFENesin 600 MG TABCR PO (09:05)
[2020-02-12] MEDS: Multivitamin TAB 1 TAB PO (09:05)
[2020-02-12] MEDS: Folic Acid 1 MG TAB PO (09:06)
[2020-02-12] MEDS: Methadone 5 MG TAB PO (09:06)
[2020-02-12] MEDS: Gabapentin 300 MG CAP 600 MG PO (09:06)
[2020-02-12] MEDS: predniSONE 20 MG TAB 40 MG PO (09:06)
[2020-02-12] MEDS: Ferrous Sulfate 325 MG TAB PO (09:06)
[2020-02-12] MEDS: Apixaban 2.5 MG TAB PO (09:06)
[2020-02-12 09:14] VITALS: PULSE 97
[2020-02-12] MEDS: Normal Saline Flush 10 ML SYR IVP (09:37)
--- NOTE | 2020-02-12 10:08 | PT.INPN ---
PT Notes Visit Reasons: SEPTIC SHOCK DUE PNA,ADRENAL INSUFFICIENCY Date of Service: February 12, 2020 Treatment Dates : February 05, 2020 - February 12, 2020 Referring Doctor: Shreya Parker MD PT Orders: PT CONSULT: Limited ability Precautions: Fall risk Patient Profile/Admitting Diagnosis: Patient is an 84-year-old female admitted to [facility] secondary to septic shock exacerbated by acute adrenal insufficiency as well as precipitated by right upper lobe and right lower lobe pneumonia with history of Pseudomonas and aspiration Pseudomonas in the past. She has been participating in PT intervention 1?2 times per day for the past 7 days. 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) Hx of deep venous thrombosis (Resolved) Lumbago (Resolved) Macrocytic anemia (Resolved) Malnutrition (Resolved) Myasthenia gravis (Chronic) Osteoporosis (Chronic) Peripheral neuropathic pain (Inactive) Post herpetic neuralgia (Resolved) Pulmonary arterial hypertension (Acute) PA pressure 35-40 mm Hg Sacral decubitus ulcer, stage IV (Inactive) Surgical History (Updated 02/04/20 @ 16:00 by Shreya Parker MD) Abdominal fistula (Resolved 08/17/18) repair by Dr Elizalde AV fistula (Inactive) RUE Gastrostomy complication (Resolved 08/17/18) gastric enteric fistula repair by Dr Elizalde Gastrostomy infection (Resolved 08/10/18) Dr Elizalde, excised tissue at old g-tube site and closed g-tube tract surgically. Gastrostomy Tube Placement (Resolved) H/O wisdom tooth extraction (Acute) S/P appendectomy (Acute) History/Home Situation: Lives with her daughter and in a single level 12 dwelling with 1 step into the home with railing Current Functional Limitations: Ambulation, functional mobilities, self ADLs Equipment Owned/DME: Front wheel walker Subjective: Tanja states that she is feeling a bit more tired today. She is hopeful that she can return home either today or tomorrow. Objective: General Observation: Patient sitting in chair at initiation of session.. She is monitored on telemetry. She has a AV fistula in the right upper extremity for plasma apheresis treatments biweekly at [facility]. No IV lines running currently. Mental Status: Alert and oriented x3 Vital Signs: Patient is on room air. She briefly desaturates to 88% with ambulation, although rapidly re-saturates to 92% (less than 30 seconds recovery) ROM: Right Upper Extremity: Within functional limits Left Upper Extremity: Within functional limits Right Lower Extremity: Within functional limits Left Lower Extremity: Within functional limits Strength: Right Upper Extremity: 4-/5 flexion and abduction right shoulder, 4/5 bicep tricep, good clinical document improvement educator strength Left Upper Extremity: 4-/5 flexion and abduction left shoulder, 4/5 bicep tricep, good clinical document improvement educator strength Right Lower Extremity: 4-/5 hip flexion, quads and hamstrings, 4-/5 abduction tested in sitting. 4+/5 adduction. Plantarflexion and dorsiflexion 4/5 Left Lower Extremity: 4-/5 hip flexion, quads and hamstrings, 4-/5 abduction tested in sitting. 4+/5 adduction. Plantar flexion dorsiflexion 4/5 Sensation: Reports intact sensation light touch bilateral lower extremities Bed Mobility/Transfers: Bed mobility not tested. Patient already up in chair at start of evaluation finishing breakfast. Sit to stand: Supervision Stand to sit: Supervision Gait: Patient ambulates 25 feet with FW W, WBAT, supervision only on room air. Balance: Static Sitting: Good Dynamic Sitting: Good Static Standing: Fair Dynamic Standing: Fair Treatment: Gait and transfer training as noted above, followed by review of home exercise program. Patient was provided with handouts yesterday, and was able to demonstrate effective completion of each activity with need for only minimal cueing. Assessment: Patient is a 84 year old female referred to physical therapy services with the diagnosis of septic shock due to pneumonia and adrenal insufficiency. She has participated in 11 PT sessions over the course of the past 7 days, and has demonstrated improved functional mobility and safety. She continues to struggle with activity tolerance, and will benefit from continued PT intervention during the course of her acute care stay for prevention of decline. Although patient would benefit from home health PT, she has verbalized her desire to reduce the number of people entering her home for reduction of exposure to COVID 19. She has been Provided with a home exercise program for completion with assistance of family members, and will consider home health PT in the future. She is demonstrating effective safety to allow for safe return home once medically cleared. We will, however, continue with PT intervention during her acute care stay for prevention of decline in chronically ill, elderly woman. Goals: Goals X1 week 1. Supine-Sit: Contact-guard x1 (met) 2. Sit-Supine: Contact-guard x1 (met) 3. Sit-Stand: Contact-guard x1 to front wheeled walker (met) 4. Stand-Sit: Contact-guard x1 from front wheeled walker (met) 5. Bed-Chair: Contact-guard x1 with front wheeled walker (met) 6. Chair-Bed: Contact-guard x1 with front wheeled walker (met) 7. Gait: 50 feet with contact-guard x1 with front wheeled walker] (met) 8. Balance improved standing static and dynamic balance (met) Plan of Care/Treatment Plan: 1-2x/day, 7 days/week x 1 week. Plan of care has been reviewed with the FELLING MACHINE OPERATOR providing the service under Physical Therapy direction. Initiate Physical Therapy intervention for strengthening, bed mobility, transfers, gait, stairs, balance training, use of assistive device. DISCHARGE RECOMMENDATIONS: Recommend discharge to home once medically stable TREATMENT CODE/TIME: 8:50 - 9:20 ([id number]) Shobha Adame, PT, DPT [facility]
[2020-02-12 11:17] VITALS: RESP 18; RESP 2; O2SAT 90
[2020-02-12] MEDS: Albuterol/Ipratropium 3 ML UPD VIAL UPD (11:17)
[2020-02-12] MEDS: Nystatin 500000 UNITS/5 ML SUSP 5ML CUP PO ×2 (11:18→14:20)
[2020-02-12 11:22] VITALS: RESP 2
[2020-02-12 12:02] VITALS: BP 117/75; PULSE 101; RESP 16; TEMP 36.5; O2SAT 91
--- NOTE | 2020-02-12 12:25 | CMDISCH_ITS ---
LACE Index Scoring Tool - Questions: Length of Stay (in days): 7 - 13 Acuity (Admit via E.D.?): Yes Comorbidities: Congestive Heart Failure E.D. Visits: 1 - Answers: Total Score: 11 Risk of Readmission: High Risk Care Management Discharge Reason for Hospitalization: Septic shock, adrenal insufficiency, RUL and RLL pneumonia Discharge Plan: Tanja will discharge home with resumption of daily VNA healthcare marketer ([facility]- provided notification) and follow up with her PCP and plan of care. She will also have a new commode purchased by her family. She will transport via private vehicle with family. Patient/Family Education Needs: Review discharge instructions, discuss Ask Me Three. Services Needed at Discharge: DME Agency ([employer] (Patient Ed, pricing, options)), Home Health Care Services (Resumption injector assembler)
--- NOTE | 2020-02-12 13:34 | WOUNDCONS_ITS ---
- If Service Date Differs Date of service: 02/12/20 Time of Service: 13:34 Wound Initial Evaluation Narrative: This is a follow up to a wound consult performed on 02/05/2020. Patient is a pleasant 84 yof . She is seen here for pneumonia and adrenal insufficiency. H&P labs and other pertinent information concerning the wound was reviewed. - Wound Lumbar/Sacral Wound Type: Pressure Ulcer Pressure Ulcer Stage: IV Wound General Appearance: Reddened, Bone Visible, Tunneling, Denuded Wound Bed Greatest Portion: Pale Isabella Wound Bed Lesser Portion: Red (Granulation) Wound Surrounding Tissue Appearance: Isabella, Edges Rolled Percent of Wound Bed Granulated/Red: 30 Wound Length: 0.5 cm Wound Width: 1.9 cm Wound Depth: 0.4 cm Wound Drainage Amount: Minimal Wound Drainage Odor: None/Absent Wound Drainage Description: Sero Sanguineous Wound Topical Solution/Irrigant: Saline Irrigant Wound Debridement Method: Mechanical (wound cleaned with gauze and anasept) Wound Debridement Amount of Tissue Removed: Minimal - Circulation, Sensation, Motion Edema Degree: 2+ Peripheral Pulse Strength: Normal Capillary Refill: Less than 3 seconds Sensation Description: Within Normal Limits (2 + BLE pitting) Skin Temperature: Warm Skin Color: Pale - GREGORY Comment:: GREGORY not indicated - Pain Pain Level: 2 (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 Todays picture shows and improvement in the condition of the saji wound skin. Noted that fecal material was leaking underneath the top dressing, will recomend a hydrocolloid dressing to provide a better seal. - Treatment/Dressing Change Cleanse With: Anasept Dressing Types: Collagen (Promagran Prism, Hydrocollid (Duoderm) - Recomendation Recomendation:: Cleanse wound with Anasept spray, and then pat dry. Apply Calmoseptine to the reddened area of periwound skin. Cut a promogan prism in half, apply Normal Saline. Allow Promagan to gel. Use a cotton swab to apply the promogan into the wound bed. Cover with Duoderm Thin. Change every other day or prn if soiled or dislodged. Physcian/Nurse Practioner Notified: Yes (Dr. Tyrell Benites) Treatment Time - Time Total Time Spent with Patient: 30 minutes - For: For:: 1 week
--- NOTE | 2020-02-12 13:56 | W.PM.DS.N ---
Date of service: 02/12/20 Time of Service: 13:56 DS: Diagnosis Discharge Diagnosis (1) Septic shock: Status: Resolved (2) Multifocal pneumonia: Status: Acute (3) Acute adrenal insufficiency: Status: Acute (4) Myasthenia gravis: Status: Chronic (5) Atrial fibrillation: Status: Chronic (6) Hx of deep venous thrombosis: Status: Resolved (7) Thrush, oral: Status: Acute (8) DVT prophylaxis: Status: Acute (9) Discharge planning issues: Status: Acute Discharge Plan Disposition Patient Disposition: HOME W/HOME HEALTH SERVICE Condition: Improving Discharge Details Chief Complaint: AMS/LOC Clinical Impression: Sepsis, Septic shock, Multifocal pneumonia, Acute adrenal insufficiency Reason For Visit: SEPTIC SHOCK DUE PNA,ADRENAL INSUFFICIENCY Admit Date/Time: 02/04/20 13:36 Admit Provider: Shreya Parker Attending Provider: Shreya Parker Primary Care Provider: Maribell Choi ED Provider: Danae Gómez Hospital Course Hospital Course: 84-year-old female with history of myasthenia gravis on chronic prednisone therapy and plasmapheresis, history of multidrug-resistant Pseudomonas pneumonias, and chronic pain on opioids who presented with confusion and was found to be hypotensive by emergency medical services. In the emergency room she was resuscitated with IV fluids, stress dose steroids, and initiated on doxycycline, vancomycin, Zosyn, and aztreonam. She briefly required norepinephrine drip. She was in ICU overnight. Antibiotics were narrowed to Zosyn and aztreonam after sputum culture consistent with Pseudomonas. Unfortunately, sensitivities had to be sent out and were pending at the time of discharge. She received 9 of a planned 10-day course of IV antibiotics. After her afternoon dose of Zosyn, she was discharged with a plan to take 1 additional dose of levofloxacin. Her neurologist at [facility] agreed with using this therapy. C-reactive protein was decreasing from admission. Stress steroids were transitioned to oral prednisone and tapered. She was discharged with a taper back to her home daily dose. She did receive diuresis with Lasix 20 mg IV twice daily after the initial fluid resuscitation was stopped. Note was made of diastolic dysfunction on previous echocardiogram. She was discharged off of diuretics. She had loose stools throughout her stay. C. difficile testing was negative. She was continued on Lomotil and given probiotics. She was continued on her chronic Eliquis for atrial fibrillation. Telemetry did not show concerning events. Note was made of anemia in her history, but her blood counts had normalized here. Her outpatient vitamin and iron supplementation was continued, but iron was decreased to once daily. The patient missed her usual weekly bladder pheresis for myasthenia gravis due to acute illness. She did work with physical therapy here with plan to continue on her own as outpatient. Plan to follow-up at [facility] for plasmapheresis on regular Thursday schedule on week of discharge. Patient had a pre-existing sacral pressure wound. Wound care was continued. Due to diarrhea, the dressing was changed to Duofilm rather than an absorbent dressing. Wound care orders were redone, with plan to resume home health for wound care upon discharge. Thrush was treated with nystatin and resolved. Home Meds and New Rx's Prescriptions: New levofloxacin 750 mg tablet 750 mg PO DAILY Qty: 1 RF: 0 Bio-K plus 50 billion cell Capsule,Delayed Release(Dr/Ec) 1 cap PO DAILY 14 Days Qty: 14 RF: 0 Continued sennosides [senna] 8.6 mg tablet 8.6 mg PO BID PRNRF: 0 multivitamin [Multiple Vitamins] Tablet 1 tab PO DAILY RF: 0 diphenoxylate-atropine [Lomotil] 2.5-0.025 mg Tablet 1 tab PO TID RF: 0 hydromorphone [Dilaudid] 2 MG tablet 2 mg PO BID MDD 3mg Q3H RF: 0 lidocaine [Lidoderm] 5 % Adhesive Patch,Medicated See Rx Instructions .ROUTE .COMPLEX RF: 0 melatonin 10 mg Tablet 10 mg PO HS RF: 0 prednisone 10 MG tablet See Rx Instructions .ROUTE .COMPLEX Qty: 18 RF: 0 gabapentin 300 MG capsule 600 mg PO BID RF: 0 folic acid 0.8 MG capsule 0.8 mg PO DAILY RF: 0 Eliquis 2.5 MG tablet 2.5 mg PO BID RF: 0 ergocalciferol (vitamin D2) [Vitamin D2] 50,000 UNITS capsule 50,000 units PO .QOWEEK RF: 0 cyanocobalamin (vitamin B-12) 1,000 MCG/ML solution 1 ea IM .QMONTH RF: 0 bisacodyl 10 MG suppository 1 ea MS PRN PRNRF: 0 methadone [Dolophine] 5 MG tablet 5 mg PO DAILY RF: 0 acetaminophen [Tylenol] 325 mg Tablet 650 mg PO Q4H PRN PRNQty: 30 RF: 0 Changed ferrous sulfate 325 MG tablet 325 mg PO DAILY Qty: 0 RF: 0 Discontinued prednisone 10 MG tablet 10 mg PO DAILY RF: 0 Discharge Instructions Instructions: Bacterial Pneumonia (DC) Additional Instructions: You have one dose of antibiotic that should be taken ThursdayFebruary 12 in the morning. You should start the prednisone taper ThursdayFebruary 12 as well (you had a dose Thursday morning) Dressing recommendations were sent to home health Activity:: Activity as Tolerated Equipment/Supplies:: Commode, wheelchair, walker at home Diet:: As Tolerated Discharge Orders Discharge Orders: Discharge Order (Routine); Ordered 02/12/20 Ordered By: Tyrell Benites DS: Summary Status at Discharge Functional status at discharge: uses cane/walker Overall status at discharge: patient is progressing back to baseline Mental Status: mental status grossly normal Speech and Movement: slowed movement and other Mood: congruent mood Affect: normal affect Time Spent with Patient providing and/or coordinating discharge services: Greater than 30 minutes Specific discharge activities: Discussed plans with [id number] and patient on conference call. Exam Narrative Exam Narrative: General: Very pleasant elderly female, sitting up in a chair, head hangs down when not talking. A&Ox3. HEENT: EOMI, MMM, no thrush visible. eyelids not drooping Cardiovascular: RRR, no m/r/g Lungs: rales just at B bases bilaterally Gastrointestinal: soft, nontender, nondistended Extremities: No edema BLE's, wearing TEDs, warm feet Psych Mental Status: mental status grossly normal Speech and Movement: slowed movement and other Mood: congruent mood Affect: normal affect DS: Data Vitals/I&O Vitals and I&O: Vital Signs Temperature 36.5 C 02/12/20 12:02 Temperature Source Temporal Artery Scan 02/12/20 12:02 Pulse 101 H 02/12/20 12:02 Pulse Rhythm Irregular 02/12/20 11:22 Pulse 86 02/05/20 13:00 Respiratory Rate 16 02/12/20 12:02 Respiratory Effort Short of Breath 02/12/20 11:22 Respiratory Depth Shallow 02/12/20 11:22 Respiratory Pattern Normal 02/12/20 11:22 Blood Pressure 117/75 02/12/20 12:02 Blood Pressure Mean 64 02/05/20 13:00 Blood Pressure Position Sitting 02/05/20 10:40 Pulse Oximetry 91 L 02/12/20 12:02 Oxygen Delivery Method Room Air 02/12/20 12:02 Oxygen Flow Rate 0 02/12/20 12:02 Pain Level 2 02/12/20 13:55 Comment 02/11/20 11:31 Intake & Output 02/11/20 02/12/20 02/12/20 23:59 11:59 23:59 Intake Total 500 / 800 180 / 180 Output Total 1200 / 1600 500 / 500 Balance -700 / -800 -320 / -320 Intake: IV 200 / 500 180 / 180 Oral 300 / 300 Output: Urine 1200 / 1600 500 / 500 Other: Urine Color Yellow Yellow Urine Appearance Clear Clear Urine Odor Normal None Stool Size Small Moderate Stool Characteristics Liquid Liquid Brown Voiding Methods Bedside Commode Bedside Commode Data Completed and Pending Labs on day of discharge: Preliminary micro results at discharge 02/04/20 14:00 Sputum Culture - Preliminary Sputum Normal Maribell Gram Negative Lex Gram Negative Lex#2 [facility] Surgical History (Updated 02/04/20 @ 16:00 by Shreya Parker MD) Abdominal fistula (Resolved 08/17/18) repair by Dr Elizalde AV fistula (Inactive) RUE Gastrostomy complication (Resolved 08/17/18) gastric enteric fistula repair by Dr Elizalde Gastrostomy infection (Resolved 08/10/18) Dr Elizalde, excised tissue at old g-tube site and closed g-tube tract surgically. Gastrostomy Tube Placement (Resolved) H/O wisdom tooth extraction (Acute) S/P appendectomy (Acute) Family History (Updated 02/04/20 @ 15:53 by Shreya Parker MD) Father Heart disease Mother Cancer pancreatic Social History Smoking/Tobacco Use Status: Never Alcohol Intake: never Drug use: Never Substance use type: does not use Do you feel safe in your relationship?: Yes
--- NOTE | 2020-02-13 10:35 | INDS_ITS ---
PT Notes Visit Reasons: SEPTIC SHOCK DUE PNA,ADRENAL INSUFFICIENCY Physical Therapy Discharge Summary Visit Reasons: SEPTIC SHOCK DUE PNA,ADRENAL INSUFFICIENCY Treatment Dates : February 05, 2020 - February 12, 2020 Referring Doctor: Shreya Parker MD PT Orders: PT CONSULT: Limited ability Precautions: Fall risk THIS DOCUMENT SERVES A SUMMARY OF CARE. NO PT SERVICES WERE PROVIDED ON THIS DATE. Patient Profile/Admitting Diagnosis: Patient is an 84-year-old female admitted to [facility] secondary to septic shock exacerbated by acute adrenal insufficiency as well as precipitated by right upper lobe and right lower lobe pneumonia with history of Pseudomonas and aspiration Pseudomonas in the past. She had been participating in PT intervention 1?2 times per day for the past 7 days. She was discharged home after her PT session on 02/12/2020. 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) Hx of deep venous thrombosis (Resolved) Lumbago (Resolved) Macrocytic anemia (Resolved) Malnutrition (Resolved) Myasthenia gravis (Chronic) Osteoporosis (Chronic) Peripheral neuropathic pain (Inactive) Post herpetic neuralgia (Resolved) Pulmonary arterial hypertension (Acute) PA pressure 35-40 mm Hg Sacral decubitus ulcer, stage IV (Inactive) Surgical History (Updated 02/04/20 @ 16:00 by Shreya Parker MD) Abdominal fistula (Resolved 08/17/18) repair by Dr Elizalde AV fistula (Inactive) RUE Gastrostomy complication (Resolved 08/17/18) gastric enteric fistula repair by Dr Elizalde Gastrostomy infection (Resolved 08/10/18) Dr Elizalde, excised tissue at old g-tube site and closed g-tube tract surgically. Gastrostomy Tube Placement (Resolved) H/O wisdom tooth extraction (Acute) S/P appendectomy (Acute) History/Home Situation: Lives with her daughter and in a single level 12 dwelling with 1 step into the home with railing Current Functional Limitations: Ambulation, functional mobilities, self ADLs Equipment Owned/DME: Front wheel walker Subjective: None obtained, as patient was discharged home 02/12/2020 Objective: ROM: Right Upper Extremity: Within functional limits Left Upper Extremity: Within functional limits Right Lower Extremity: Within functional limits Left Lower Extremity: Within functional limits Strength: Right Upper Extremity: 4-/5 flexion and abduction right shoulder, 4/5 bicep tricep, good events traffic controller strength Left Upper Extremity: 4-/5 flexion and abduction left shoulder, 4/5 bicep tricep, good events traffic controller strength Right Lower Extremity: 4-/5 hip flexion, quads and hamstrings, 4-/5 abduction tested in sitting. 4+/5 adduction. Plantarflexion and dorsiflexion 4/5 Left Lower Extremity: 4-/5 hip flexion, quads and hamstrings, 4-/5 abduction tested in sitting. 4+/5 adduction. Plantar flexion dorsiflexion 4/5 Sensation: Reports intact sensation light touch bilateral lower extremities Bed Mobility/Transfers: Bed mobility not tested. Sit to stand: Supervision Stand to sit: Supervision Gait: Patient ambulates 25 feet with FW W, WBAT, supervision only on room air. Balance: Static Sitting: Good Dynamic Sitting: Good Static Standing: Fair Dynamic Standing: Fair Treatment: Gait and transfer training as noted above, followed by review of home exercise program. Patient was provided with handouts yesterday, and was able to demonstrate effective completion of each activity with need for only minimal cueing. Assessment: Patient is a 84 year old female referred to physical therapy services with the diagnosis of septic shock due to pneumonia and adrenal insufficiency. She participated in 11 PT sessions over the course of 7 days, and demonstrated improved functional mobility and safety. She demonstrated sufficient safety to allow for return home with family assistance. She was deemed medically stable a fter her PT session yesterday, and was able to return home 02/12/2020. Goals: Goals X1 week 1. Supine-Sit: Contact-guard x1 (met) 2. Sit-Supine: Contact-guard x1 (met) 3. Sit-Stand: Contact-guard x1 to front wheeled walker (met) 4. Stand-Sit: Contact-guard x1 from front wheeled walker (met) 5. Bed-Chair: Contact-guard x1 with front wheeled walker (met) 6. Chair-Bed: Contact-guard x1 with front wheeled walker (met) 7. Gait: 50 feet with contact-guard x1 with front wheeled walker] (met) 8. Balance improved standing static and dynamic balance (met) Plan of Care/Treatment Plan: Discharge from PT services in acute care setting DISCHARGE RECOMMENDATIONS: Discharge home TREATMENT CODE/TIME: None Shobha Adame, PT, DPT [facility]
== END 2020-02-12 15:27 | disposition home health service (06) | DRG 871 ==
LOC: ER 13:45 → ICU 15:34 → MS 02-05 13:30
PROVIDERS: Admitting Provider Internal Medicine; Emergency Provider Physician Assistant; PCP Family Medicine; Visit Provider Internal Medicine
DX: A41.9 Sepsis, unspecified organism (principal); L89.154 Pressure ulcer of sacral region, stage 4; R65.21 Severe sepsis with septic shock; J15.1 Pneumonia due to Pseudomonas; I42.9 Cardiomyopathy, unspecified; E27.40 Unspecified adrenocortical insufficiency; B37.0 Candidal stomatitis; G70.00 Myasthenia gravis without (acute) exacerbation; E53.8 Deficiency of other specified B group vitamins; K59.09 Other constipation; D64.9 Anemia, unspecified; Z79.01 Long term (current) use of anticoagulants; G89.29 Other chronic pain; M54.9 Dorsalgia, unspecified; F51.04 Psychophysiologic insomnia; Z93.1 Gastrostomy status; Z86.718 Personal history of other venous thrombosis and embolism; M81.0 Age-related osteoporosis without current pathological fracture; I27.20 Pulmonary hypertension, unspecified; I48.0 Paroxysmal atrial fibrillation; Z66 Do not resuscitate; Z79.891 Long term (current) use of opiate analgesic; Z79.52 Long term (current) use of systemic steroids; I87.2 Venous insufficiency (chronic) (peripheral); R19.7 Diarrhea, unspecified
CPT/HCPCS: 36415; 51702; 80048; 80053; 84145; 85652; 87040; 87077; 87186; 87449; 92610; 93005; 96361; 96365; 96367; 96368; 96375; 97110; 97162; 97165; 97530; 99232; 99239; 99285; 99291; U0003; 71045; 81003; 83605; 83735; 83880; 85025; 85610; 86140; 87070; 87205; 87324; 93010; 94640; J0696; J0743; J1720; J1940; J1941; J2543; J3480; J3490; J7512; J7620

== ENCOUNTER 2020-02-13 15:46 | Inpatient (IN) | payer MEDICARE, BC, SELFPAY ==
[2020-02-13] VITALS (22 sets, daily range): BP systolic 101–130; BP diastolic 55–81; PULSE 74–110; RESP 2–25; TEMP 36.2–36.8; O2SAT 89–96
--- NOTE | 2020-02-13 15:48 | W.ED.GENAD ---
Discharge Plan Disposition Patient Disposition: [facility] INPATIENT Condition: Serious Discharge Details Chief Complaint: GenMedical Clinical Impression: Pseudomonas pneumonia, Atrial fibrillation, Weakness, Elevated troponin Admit Date/Time: 02/13/20 20:22 Admit Provider: Seth Cruz Attending Provider: Seth Cruz Primary Care Provider: Maribell Choi ED Provider: Danae Gómez Discharge Data Discharge Date/Time-TO BE ENTERED AT DEPARTURE: 02/13/20 21:10 Medical Decision Making Patient is a pleasant 84-year-old female, well-known to myself, presenting today with chief complaint of increased weakness. Patient was admitted by myself on the of this month and subsequently discharged yesterday. At the time of discharge, she had been treated for septic shock, Pseudomonas pneumonia, acute adrenal insufficiency and oral thrush. She was discharged home yesterday and reports that she had been feeling fairly well. She had been ambulating with physical therapy but did not ambulate unassisted per patient's report. She reports that today she is been profoundly weak. States that she is unable to get to the commode at this time. I did speak with her [id number] who corroborates the story. She reports that she had appeared much better when she first came home yesterday but is now beyond her schedule to care for her home. Patient reports that when she lays flat I feel a flood of water coming up my lungs like I am drowning. She does report feeling short of breath. Feels that the cough has improved since her admission recently. She was discharged with diarrhea which is C. difficile negative, she reports only 2 bowel movements today and that this is not been bothering her much since discharge yesterday. Denies any fevers or chills. States she is been bringing up minimal with her cough. Denies any chest pain. No GI upset. Has noted some swelling in her lower extremities which is new for her. Past medical history significant for history of DVT, atrial fibrillation, myasthenia gravis, adrenal insufficiency, pulmonary arterial hypertension. Patient is currently anticoagulant on Eliquis and has been take medication as prescribed. On exam, patient is resting comfortably. She is on 2 L nasal cannula, patient had been on room air at the time of discharge yesterday and has never been on oxygen while at home. Patient is tachycardic with a heart rate of 105. Blood pressure slightly soft at 101/65. She appears dehydrated on exam. Her lungs sound diffusely wet, worse in the left lower lobe. She does have 2+ lower extremity edema. She has no calf tenderness. CXR reviewed by radiologist: FINDINGS: Lungs: There is persistent right upper lobe pulmonary opacity which has improved very slightly since February 10, 2020 likely representing a component of resolving pneumonia superimposed on chronic fibrosis. Opacity in the medial right lung base is is similar to the comparison studies when accounting for differences in positioning and technique. More streaky opacity in the left mid to lower lung with left diaphragmatic juxtapleural peaking is similar and likely represents pulmonary fibrosis/scar. Pleural space: Biapical pleural capping greater on the right is again noted. Heart/Mediastinum: Unremarkable. No cardiomegaly. Vasculature: Tortuous ectatic atherosclerotic aorta. Bones/joints: Degenerative joint disease similar to the comparison studies. IMPRESSION: 1. Likely slight improvement in right upper lobe patchy opacity suggesting a component of resolving pneumonia likely superimposing underlying fibrosis. 2. No other changes in additional pulmonary opacities which likely represent chronic fibrosis. EKG reviewed by Dr. Gonzalez. Patient atrial fibrillation but no acute ischemic changes. Patient does have a known history of atrial fibrillation. Rate of 96. Spoke with the patients son who reports that she also fell yesterday. He reports that he and his and have been trying to help her as much as possible. He also reports that today, when evaluated by EMS, her BP was low with a systolic of 70. He reports a dramatic decline today with worsening weakness and inability to get out of bed. Patient worked with respiratory therapy and did have great relief with the Acapella treatment. However, she continues to need O2 and is currently 89% on 3 L nasal cannula. This is new for the patient. She was on room air when discharged yesterday. Her chest x-ray is reviewed by radiologist with no significant abnormalities compared to previous. She does have an elevated white count compared to yesterday with a white count now up to 12. Her kidney function is notably worsened with a BUN of 35 and creatinine of 1.49. Patient has bumped her troponin II 0.09. Her BNP is also elevated at 3900. Albumin is low at 2.5. At this point, I am concerned that the troponin is bumped secondary to CHF which may also contribute to her oxygen demand. However, with her worsening kidney function I am hesitant to begin aggressive diuresis. Patient is anticoagulated and has been taking her medications. Patient is on Eliquis at baseline for her atrial fibrillation. Reevaluated the patient. She continues to sound wet on plan to give 20 of Lasix Consult[address] with Dr. Cruz regarding admission for hypoxia, CHF exacerbation, KETTY, elevated troponin. He agrees to admission. Discussed plan with patient and her family, they are in agreement. HPI General Mode of arrival: EMS. Date/Time Provider Initiated Documentation: 02/13/20 15:47. Limitations to Documentation: no limitations. Information obtained by: patient, EMS and RN notes reviewed. History of Present Illness 84 year old F presents to the emergency department with the chief complaint of Weakness, cough, described as moderate, Patient started experiencing this day(s) (1, began last night after discharge) and it has been constant. No relieving factors improve symptom(s), No exacerbating factors reported . Patient notes cough, malaise, shortness of breath and weakness (generalized); denies confusion, chest pain, diaphoresis, fever/chills, headaches, loss of appetite, nausea/vomiting, rash and syncope. Patient did receive the following treatments prior to arrival, none Related Data Home Medications Medication Instructions Recorded Confirmed Eliquis 2.5 mg PO BID 07/08/17 02/13/20 folic acid 0.8 mg PO DAILY 07/08/17 02/13/20 gabapentin 600 mg PO BID 07/08/17 02/13/20 cyanocobalamin (vitamin B-12) 1 ea IM .QMONTH 07/27/17 02/13/20 ergocalciferol (vitamin D2) 50,000 units PO .QOWEEK 07/27/17 02/13/20 [Vitamin D2] bisacodyl 1 ea [place] PRN PRN 09/26/17 02/13/20 sennosides 8.6 mg tablet 8.6 mg PO BID PRN 08/02/18 02/04/20 methadone [Dolophine] 5 mg PO DAILY 08/06/18 02/13/20 acetaminophen [Tylenol] 650 mg PO Q4H PRN PRN #30 tab 08/10/18 02/13/20 multivitamin [Multiple Vitamins] 1 tab PO DAILY 08/16/18 02/13/20 diphenoxylate-atropine [Lomotil] 1 tab PO TID 02/04/20 02/13/20 hydromorphone [Dilaudid] 2 mg PO BID MDD 3mg Q3H 02/04/20 02/13/20 lidocaine [Lidoderm] See Rx Instructions .ROUTE .COMPLEX 02/04/20 02/13/20 melatonin 10 mg PO HS 02/04/20 02/13/20 L. acidophilus,casei,rhamnosus 1 cap PO DAILY 14 Days #14 cap 02/12/20 02/13/20 [Bio-K plus] ferrous sulfate 325 mg PO DAILY #0 tab 02/12/20 02/13/20 levofloxacin 750 mg PO DAILY #1 tab 02/12/20 02/13/20 prednisone See Rx Instructions .ROUTE 02/12/20 02/13/20 .COMPLEX #18 tab Previous Rx's Medication Instructions Recorded acetaminophen [Tylenol] 650 mg PO Q4H PRN PRN #30 tab 08/10/18 L. acidophilus,casei,rhamnosus 1 cap PO DAILY 14 Days #14 cap 02/12/20 [Bio-K plus] ferrous sulfate 325 mg PO DAILY #0 tab 02/12/20 levofloxacin 750 mg PO DAILY #1 tab 02/12/20 prednisone See Rx Instructions .ROUTE 02/12/20 .COMPLEX #18 tab Allergies Allergy/AdvReac Type Severity Reaction Status Date / Time Sulfa (Sulfonamide Allergy Hives Verified 02/13/20 16:04 Antibiotics) General KIERSTEN: 2 Review of Systems Constitutional Constitutional: Reports as per HPI, Denies chills, Reports fatigue, Denies fever(s), Denies headache(s), Denies lethargy, Reports malaise, Denies poor appetite and Reports weakness (generalized weakness) Eyes Eyes: Denies change in vision ENT Ears, Nose, Mouth, and Throat: Denies dizziness and Denies headache(s) Cardiovascular Cardiovascular: Reports as per HPI, Denies chest pain, Denies chest pain at rest, Denies chest pain with activity, Reports leg edema, Denies lightheadedness, Denies radiating jaw, neck or arm pain, Reports dyspnea, Reports dyspnea on exertion, Reports orthopnea and Denies paroxysmal nocturnal dyspnea Respiratory Respiratory: Reports as per HPI, Reports chest congestion, Reports cough, Denies hemoptysis, Denies excessive phlegm production, Denies pain on inspiration, Denies pain with cough, Reports dyspnea, Reports dyspnea on exertion and Denies wheezing Gastrointestinal Gastrointestinal: Reports as per HPI, Denies abdominal pain, Reports diarrhea (had diarrhea during hospitalization, this is improving, 3 BM today), Denies nausea and Denies vomiting Musculoskeletal Musculoskeletal: Reports as per HPI and Denies back pain Integumentary/Breasts Skin/Breast: Reports as per HPI and Denies rash Neurologic Neurologic: Reports as per HPI, Denies dizziness, Denies headache(s), Denies localized weakness and Reports weakness (generalized weakness) Endocrine Endocrine: Reports fatigue Allergic/Immunologic Allergic/Immunologic: Denies wheezing [facility] Medical History Aspiration pneumonia (Acute) Atrial fibrillation (Chronic) B12 deficiency (Chronic) Cardiomyopathy (Acute) Echo 12/10/2018: EF 60-65%, up from 35% previously; does have diastolic dysfunction CHF (congestive heart failure) (Resolved) Chronic constipation (Chronic) Chronic insomnia (Chronic) 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 fracture of spine (Chronic) Depression (Inactive) Dysphagia (Acute) 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) Hx of deep venous thrombosis (Resolved) Lumbago (Resolved) Macrocytic anemia (Resolved) Malnutrition (Resolved) Myasthenia gravis (Chronic) Osteoporosis (Chronic) Peripheral neuropathic pain (Inactive) Post herpetic neuralgia (Resolved) Pulmonary arterial hypertension (Chronic) PA pressure 35-40 mm Hg Sacral decubitus ulcer, stage IV (Inactive) Surgical History (Updated 02/04/20 @ 16:00 by Shreya Parker MD) Abdominal fistula (Resolved 08/17/18) repair by Dr Elizalde AV fistula (Inactive) RUE Gastrostomy complication (Resolved 08/17/18) gastric enteric fistula repair by Dr Elizalde Gastrostomy infection (Resolved 08/10/18) Dr Elizalde, excised tissue at old g-tube site and closed g-tube tract surgically. Gastrostomy Tube Placement (Resolved) H/O wisdom tooth extraction (Acute) S/P appendectomy (Acute) Family History (Updated 02/04/20 @ 15:53 by Shreya Parker MD) Father Heart disease Mother Cancer pancreatic Social History (Reviewed 02/04/20 @ 15:35 by RODOLFO Farley Smoking/Tobacco Use Status: Never Alcohol Intake: never Drug use: Never Substance use type: does not use Do you feel safe at home: Yes Do you feel safe in your relationship?: Yes Additional Social history: live with son and his family Exam Const General: cooperative, not healthy appearing, comfortable, no acute distress, well developed and ill appearing acutely and chronically Nutritional Appearance: average body habitus and well nourished Orientation: alert, awake and oriented x3 HENDC Head: normal to inspection Ears: hearing grossly normal bilaterally Mouth: mucous membranes dry (appears dry on exam) Chest Chest: normal inspection of the chest, normal palpation of entire chest wall and no crepitus Resp Effort & Inspection: normal respiratory effort, able to speak in complete sentences and no respiratory distress Auscultation: not clear to auscultation bilaterally, crackles on the right at the base and on the left at the base, no rales, no rhonchi and wheezes Cardio Rate: regular rate Rhythm: abnormal rhythm irregularly irregular Heart Sounds: S1 normal and S2 normal GI Inspection: normal to inspection, no edema and non-distended Palpation: soft, no hepatosplenomegaly, not firm, no guarding, not rigid and nontender Auscultation: normal bowel sounds Back/Spine/Pelvis Back: no CVA tenderness Thoracic/Lumbar Spine: thoracic and lumbar spine normal to inspection Skin General skin exam: no rashes or lesions noted Trauma: no lacerations or abrasions Neuro General: patient alert, patient awake and patient oriented x3 Cognition: normal cognition Speech: speech normal Extrem General: normal to inspection, capillary refill normal, no calf tenderness and edema (pitting edema) Laterality: bilateral Psych Appearance: grossly normal and well kempt Mental Status: mental status grossly normal Speech and Movement: speech and movement normal
--- NOTE | 2020-02-13 16:30 | DI.RAD_ITS ---
EXAM: XR PORTABLE CHEST AP CLINICAL HISTORY: cough, hypoxic COMPARISON: XR PORTABLE CHEST AP from 02/10/2020 FINDINGS: Portable AP film was obtained at 715 hours. Heart is mildly enlarged. Diffuse changes of pulmonary fibrosis again noted. Question slight clearing of right upper lung field infiltrates in comparison w ith examination of february 09. No other significant change seen. No new infiltrate identified. IMPRESSION: Probable slight interval clearing right upper lobe infiltrates, no other significant change from Jeremiah film.
--- NOTE | 2020-02-13 17:33 | DI.VRAD_ITS ---
PROCEDURE INFORMATION: Exam: XR Chest, 1 View Exam date and time: 02/13/2020 5:13 PM Age: 84 years old Clinical indication: Cough and other: Hypoxia; Patient HX: Cough, hypoxic TECHNIQUE: Imaging protocol: XR of the chest Views: 1 view. COMPARISON: 1. CR XR PORTABLE CHEST AP 02/10/2020 7:15 PM 2. COMPARISON MORE: CR - CHEST 2 VIEWS PA,LAT 08/06/2017 10:47:42 AM FINDINGS: Lungs: There is persistent right upper lobe pulmonary opacity which has improved very slightly since February 10, 2020 likely representing a component of resolving pneumonia superimposed on chronic fibrosis. Opacity in the medial right lung base is is similar to the comparison studies when accounting for differences in positioning and technique. More streaky opacity in the left mid to lower lung with left diaphragmatic juxtapleural peaking is similar and likely represents pulmonary fibrosis/scar. Pleural space: Biapical pleural capping greater on the right is again noted. Heart/Mediastinum: Unremarkable. No cardiomegaly. Vasculature: Tortuous ectatic atherosclerotic aorta. Bones/joints: Degenerative joint disease similar to the comparison studies. IMPRESSION: 1. Likely slight improvement in right upper lobe patchy opacity suggesting a component of resolving pneumonia likely superimposing underlying fibrosis. 2. No other changes in additional pulmonary opacities which likely represent chronic fibrosis. Dictated and Authenticated by: Holger Knowles MD. Ordering:LISA Fink MD
[2020-02-13 17:55] LABS: Abs Immature Grans 0.09 k/cumm (0.0-0.09); Absolute Basophil Count 0.01 k/cumm (0.0-0.2); Absolute Eosinophil Count 0.01 k/cumm (0.0-0.7); Absolute Monocyte Count 0.29 k/cumm (0.11-0.7); Basophils % 0.1; Eosinophils % 0.1; HCT 40.5 % (36.0-46.0); HGB 12.9 g/dL (12.0-15.5); Immature Grans % 0.8 %; Lymphocytes % 2.5; Mean Corp. HGB Concentration 31.9 g/dL (32.0-36.0); Mean Corpuscular Hemoglobin 33.2 pg (27.0-33.0); Mean Corpuscular Volume 104.4 fL (80-95); Mean Platelet Volume 9.7 fL (8.0-11.0); Monocytes % 2.4; Neutrophils % 94.1; Platelet Count 153 x1000/uL (130-400); RBC 3.88 m/cumm (4.00-5.20); RBC Distribution Width 14.4 % (11.7-14.6)
[2020-02-13 17:56] LABS: Absolute Neutrophil Count 11.29 k/cumm (1.2-6.7)
[2020-02-13] MEDS: Normal Saline 1,000 ML 150 ML IV (18:00)
[2020-02-13 18:19] LABS: ALT 27 U/L (14-59); AST 17 U/L (15-37); Albumin 2.5 g/dL (3.4-5.0); Alkaline Phosphatase 47 U/L (46-116); Anion Gap 4.1 mmol/L (3-11); BUN 35 mg/dL (7-18); Bilirubin, Total 0.4 mg/dL (0.2-1.0); CO2 36.9 mmol/L (21.0-32.0); CREATININE 1.49 mg/dL (0.55-1.02); Chloride 97 mmol/L (98-107); Glucose 138 mg/dL (74-106); Magnesium 1.9 mg/dL (1.8-2.4); NT-proBNP 3973 pg/mL (<300); Potassium 3.3 mmol/L (3.5-5.1); Sodium 138 mmol/L (136-145); Total Protein 6.2 g/dL (6.4-8.2)
[2020-02-13 18:20] LABS: Troponin I 0.09 ng/Ml (<0.06)
[2020-02-13] MEDS: POTASSIUM CHLORIDE 10 MEQ/100 ML BAG 100 MEQ IVPB ×2 (19:37→20:49)
[2020-02-13] MEDS: Furosemide 20 MG/2 ML VIAL IVP (19:37)
--- NOTE | 2020-02-13 20:02 | HPE_ITS ---
Date of service: 02/13/20 Time of Service: 20:02 Assessment and Plan Assessment and plan (1) Weakness: Status: Acute Assessment and plan: Weakness, probably multifactorial. I have some concern for ACS given relatively acute onset, EKG changes and slight but definite rise in troponin. perhaps this is manifesting non-specifically, or there may be an element of worsening CHF (though exam and labs perhaps more suggestive of a degree of dehydration). The hypoxia is certainly noted, whether this is CHF, residual from pneumonia, or what I think more likely is mucous plugging, as she seems to do better with chest PT. Perhaps all three... All occurring in setting of myasthenia and chronic steroid use. R/O ACS: trend troponins Fluid status: cautious trial IVF, but may though in fact need more diuresis, hard to crime specialist at present Respiratory: aggressive chest PT, and trial updrafts. I do not at present see need to reinstitute antibiotics, has had full course, but would have low threshold for same if deteriorates clinically. Secondary adrenal insufficiency: will give stress steroids Remains DNR History of Present Illness History of Present Illness Chief Complaint: weakness Narrative: 84 female with h/o myasthenia gravis, just d/c'ed one day [employer] following treatment for Pseudomonas pneumonia. Returns today saying she has felt weak, more SOB, including orthopnea. No CP. In ER rfindings of note for O2 sat in 80s, diffuse rhonchi (improved with chest PT), azotemia, diffuse TW flattening on EKG and troponin 0.09 (usual negative). BNP 3973. received IVF first, then 20 lasix IV. Admitted for further management. States she feels improved on oxygen (with sats now mid-90s). Note chronic steroids, sent home on prednisone taper following stress doses during recent stay. 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) Hx of deep venous thrombosis (Resolved) Lumbago (Resolved) Macrocytic anemia (Resolved) Malnutrition (Resolved) Myasthenia gravis (Chronic) Osteoporosis (Chronic) Peripheral neuropathic pain (Inactive) Post herpetic neuralgia (Resolved) Pulmonary arterial hypertension (Chronic) PA pressure 35-40 mm Hg Sacral decubitus ulcer, stage IV (Inactive) Surgical History (Updated 02/04/20 @ 16:00 by Shreya Parker MD) Abdominal fistula (Resolved 08/17/18) repair by Dr Elizalde AV fistula (Inactive) RUE Gastrostomy complication (Resolved 08/17/18) gastric enteric fistula repair by Dr Elizalde Gastrostomy infection (Resolved 08/10/18) Dr Elizalde, excised tissue at old g-tube site and closed g-tube tract surgically. Gastrostomy Tube Placement (Resolved) H/O wisdom tooth extraction (Acute) S/P appendectomy (Acute) Family History (Updated 02/04/20 @ 15:53 by Shreya Parker MD) Father Heart disease Mother Cancer pancreatic Social History Smoking/Tobacco Use Status: Never Alcohol Intake: never Drug use: Never Substance use type: does not use Do you feel safe at home: Yes Do you feel safe in your relationship?: Yes Additional Social history: live with son and his family Meds Home Medications and Allergies Home Medications Medication Instructions Recorded Confirmed Type Eliquis 2.5 mg PO BID 07/08/17 02/13/20 History folic acid 0.8 mg PO DAILY 07/08/17 02/13/20 History gabapentin 600 mg PO BID 07/08/17 02/13/20 History cyanocobalamin (vitamin B-12) 1 ea IM .QMONTH 07/27/17 02/13/20 History ergocalciferol (vitamin D2) 50,000 units PO .QOWEEK 07/27/17 02/13/20 History [Vitamin D2] bisacodyl 1 ea AL PRN PRN 09/26/17 02/13/20 History sennosides 8.6 mg tablet 8.6 mg PO BID PRN 08/02/18 02/04/20 History methadone [Dolophine] 5 mg PO DAILY 08/06/18 02/13/20 History acetaminophen [Tylenol] 650 mg PO Q4H PRN PRN #30 tab 08/10/18 02/13/20 Rx multivitamin [Multiple Vitamins] 1 tab PO DAILY 08/16/18 02/13/20 History diphenoxylate-atropine [Lomotil] 1 tab PO TID 02/04/20 02/13/20 History hydromorphone [Dilaudid] 2 mg PO BID MDD 3mg Q3H 02/04/20 02/13/20 History lidocaine [Lidoderm] See Rx Instructions .ROUTE .COMPLEX 02/04/20 02/13/20 History melatonin 10 mg PO HS 02/04/20 02/13/20 History L. acidophilus,casei,rhamnosus 1 cap PO DAILY 14 Days #14 cap 02/12/20 02/13/20 Rx [Bio-K plus] ferrous sulfate 325 mg PO DAILY #0 tab 02/12/20 02/13/20 Rx levofloxacin 750 mg PO DAILY #1 tab 02/12/20 02/13/20 Rx prednisone See Rx Instructions .ROUTE 02/12/20 02/13/20 Rx .COMPLEX #18 tab Allergies Allergy/AdvReac Type Severity Reaction Status Date / Time Sulfa (Sulfonamide Allergy Hives Verified 02/13/20 16:04 Antibiotics) Exam Narrative Exam Narrative: 107/80, 108, 14, 36.2. HJEENT AT/NC, oral mucosa dry; neck supple; lungs diffuse wet rhonchi; heart RRR w/o MRG; abdomen soft and NT; extremities w/o edema; neuro ox3, moves all 4s; no diplopia with sustained lateral gaze Results Labs Result diagrams: 02/13/20 17:45 02/13/20 17:45 Labs: Laboratory Results - last 24 hr 02/13/20 02/13/20 17:45 17:45 WBC 12.00 H RBC 3.88 L Hgb 12.9 Hct 40.5 MCV 104.4 H MCH 33.2 H MCHC 31.9 L RDW 14.4 Plt Count 153 MPV 9.7 Immature Gran % 0.8 Neutrophils % 94.1 Lymphocytes % 2.5 Monocytes % 2.4 Eosinophils % 0.1 Basophils % 0.1 Absolute Neutrophils 11.29 H Absolute Lymphocytes 0.30 L Absolute Monocytes 0.29 Absolute Eosinophils 0.01 Absolute Basophils 0.01 Sodium 138 Potassium 3.3 L Chloride 97 L Carbon Dioxide 36.9 H Anion Gap 4.1 BUN 35 H D Creatinine 1.49 H Estimated GFR/1.73 m2 33.50 Glucose 138 H Calcium 9.0 Magnesium 1.9 Total Bilirubin 0.4 AST 17 ALT 27 Alkaline Phosphatase 47 Troponin I 0.09 H* NT-Pro-B Natriuret Pep 3973 H Total Protein 6.2 L Albumin 2.5 L Last Vital Signs Temp 36.2 C L 02/13/20 15:47 Pulse 108 H 02/13/20 18:42 Resp 14 02/13/20 18:42 BP 107/80 02/13/20 18:42 Pulse Ox 89 L 02/13/20 18:42 COVID-19 Screening Traveled to [place] from one of the affected countries or regions?: No Recent travel in the [place] within the last 8 weeks?: No Recent out of the country travel within the last 8 weeks?: No Exposure or possible exposure to illness during travel?: No Had IN PERSON contact w/suspected or confirmed C-19 person: No Symptoms noted since travel?: Fever Medical treatment received for symptoms/illness related to travel?: recent pneumonia
[2020-02-13 20:39] LABS: Troponin I 0.12 ng/Ml (<0.06)
[2020-02-13] MEDS: POTASSIUM CHLORIDE 20 MEQ/100 ML BAG 50 MEQ IVPB (22:44)
[2020-02-13] MEDS: Aspirin 325 MG TAB PO (22:45)
[2020-02-13] MEDS: Melatonin 3 MG TAB 9 MG PO (22:45)
[2020-02-13] MEDS: Albuterol/Ipratropium 3 ML UPD VIAL UPD (22:45)
[2020-02-13] MEDS: methylPREDNISolone SUCC 40 MG VIAL IVP (22:45)
[2020-02-14] VITALS (9 sets, daily range): BP systolic 107–126; BP diastolic 59–83; PULSE 67–93; RESP 2–19; TEMP 36.5–37; O2SAT 90–99
[2020-02-14] MEDS: Albuterol/Ipratropium 3 ML UPD VIAL UPD ×4 (02:09→23:10)
[2020-02-14] MEDS: SODIUM CHLORIDE 0.45% 1,000 ML 80 ML IV (02:09)
[2020-02-14] MEDS: methylPREDNISolone SUCC 40 MG VIAL IVP ×3 (07:01→22:02)
[2020-02-14] MEDS: Normal Saline Flush 10 ML SYR IVP ×3 (07:01→22:03)
[2020-02-14 07:17] LABS: Troponin I 0.08 ng/Ml (<0.06)
--- NOTE | 2020-02-14 08:29 | IN_ITS ---
Date of service: 02/14/20 Time of Service: 08:30 PT Notes Visit Reasons: WEAKNESS, HYPOXIA Inpatient Physical Therapy Evaluation Date: February 14, 2020 Referring Doctor: Seth Cruz MD PT Orders: PT CONSULT: Weakness Precautions: Fall Patient Profile/Admitting Diagnosis: Patient is an 84-year-old female admitted to [facility] 02/13/2020. She had just been discharged home from [facility] a day prior. Comes back to the hospital complaining of increased weakness and difficulty with breathing. He was initially admitted to [facility] due to septic shock exacerbated by acute adrenal insufficiency as well as precipitated by right upper lobe and lower lobe pneumonia with history of Pseudomonas and aspiration Pseudomonas in the past. Patient was discharged home after physical therapy session on 02/12/2020. 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) Hx of deep venous thrombosis (Resolved) Lumbago (Resolved) Macrocytic anemia (Resolved) Malnutrition (Resolved) Myasthenia gravis (Chronic) Osteoporosis (Chronic) Peripheral neuropathic pain (Inactive) Post herpetic neuralgia (Resolved) Pulmonary arterial hypertension (Acute) PA pressure 35-40 mm Hg Sacral decubitus ulcer, stage IV (Inactive) Surgical History (Updated 02/04/20 @ 16:00 by Shreya Parker MD) Abdominal fistula (Resolved 08/17/18) repair by Dr Elizalde AV fistula (Inactive) RUE Gastrostomy complication (Resolved 08/17/18) gastric enteric fistula repair by Dr Elizalde Gastrostomy infection (Resolved 08/10/18) Dr Elizalde, excised tissue at old g-tube site and closed g-tube tract surgically. Gastrostomy Tube Placement (Resolved) H/O wisdom tooth extraction (Acute) S/P appendectomy (Acute) History/Home Situation: Lives with her daughter and in a single level 12 dwelling with 1 step into the home with railing Current Functional Limitations: Ambulation, functional mobilities, self ADLs Equipment Owned/DME: Front wheel walker Subjective: Patient states that she is feeling better this morning. Has some mild discomfort rates 2/10 chronically in the low back region. Is looking forward to getting up out of the chair and doing some walking. Objective: Observation: Patient on telemetry and has IV in left upper extremity. Also on supplemental oxygen via nasal cannula 2 L ROM: Right Upper Extremity: Within functional limits Left Upper Extremity: Within functional limits Right Lower Extremity: Within functional limits Left Lower Extremity: Within functional limits Strength: Right Upper Extremity: 4-/5 flexion and abduction right shoulder, 4/5 bicep tricep, good chief librarian work with blind strength Left Upper Extremity: 4-/5 flexion and abduction left shoulder, 4/5 bicep tricep, good chief librarian work with blind strength Right Lower Extremity: 4-/5 hip flexion, quads and hamstrings, 4-/5 abduction tested in sitting. 4+/5 adduction. Plantarflexion and dorsiflexion 4/5 Left Lower Extremity: 4-/5 hip flexion, quads and hamstrings, 4-/5 abduction tested in sitting. 4+/5 adduction. Plantar flexion dorsiflexion 4/5 Sensation: Reports intact sensation light touch bilateral lower extremities Bed Mobility/Transfers: Bed mobility not tested. Sit to stand: Min assist x1 with front wheeled walker Stand to sit: Contact-guard x1 from front wheeled walker Gait: Patient ambulates 10 feet X2 with FW W, WBAT, contact-guard x1 on 2 L supplemental oxygen via nasal cannula. Balance: Static Sitting: Good Dynamic Sitting: Good Static Standing: Fair Dynamic Standing: Fair Treatment: Gait and transfer training as noted above, followed by initiation of exercise program consisting of quad sets, long arc quads and ankle pumps. Patient was provided with handouts of a home exercise program during her last stay 2 days ago. Special Tests: Mobility Limitations Standardized Measure [facility] AM-PAC 6 clicks Basic Mobility Inpatient Short Form: Raw Score:19 Standardized Score: 45.44 CMS Score:41.77 CMS Modifier: ck Informed Consent/Education: Patient instructed in purpose of PT consult and plan of care. Assessment: Patient is a 84 year old female referred to physical therapy services with the diagnosis of weakness and difficulty breathing due to pneumonia and adrenal insufficiency. Patient presents with clinical signs and symptoms consistent with current/admitting diagnoses that have resulted to mobility limitations, gait instability and generalized weakness demonstrated by the following impairment level findings: 1. Decreased strength to BLE hip and knee major muscle groups 2. Impaired standing balance 3. Impaired activity tolerance Impairments are contributing to the following functional limitations: 1. Increased dependence with transfers 2. Inability to safely ambulate without assistive device and physical assistance 3. Increase completion time for mobility ADL performance 4. Increased fall risk Impairments are contributing to the following functional limitations: AMPAC score 41.77%. Patient is assessed as a [] Low 45318 X moderate 57741 [] High 44196 complexity based on the following: History: See above Examination: See above Presentation: Evolving Decision Making: AMPAC score 41.77% Goals: Goals X1 week 1. Supine-Sit: Contact-guard x1 2. Sit-Supine: Contact-guard x1 3. Sit-Stand: Contact-guard x1 to front wheeled walker 4. Stand-Sit: Contact-guard x1 from front wheeled walker 5. Bed-Chair: Contact-guard x1 with front wheeled walker 6. Chair-Bed: Contact-guard x1 with front wheeled walker 7. Gait: 50 feet with contact-guard x1 with front wheeled walker] 8. Balance improved standing static and dynamic balance Plan of Care/Treatment Plan: 1x/day, 7 days/week x 1 week. Plan of care has been reviewed with the AUTOMATIC DRY STARCH OPERATOR providing the service under Physical Therapy direction. Initiate Physical Therapy intervention for strengthening, bed mobility, transfers, gait, stairs, balance training, use of assistive device. DISCHARGE RECOMMENDATIONS: Recommend discharge to home with home health PT upon discharge from [facility] for continued strength training and functional mobility training as needed. TREATMENT CODE/TIME: 83900 8:30-9:00 Thank you for this consult. Dirk Albarran PT,DPT
[2020-02-14] MEDS: Gabapentin 300 MG CAP 600 MG PO ×2 (09:00→20:07)
[2020-02-14] MEDS: Lidocaine 5% Patch TD (09:00)
[2020-02-14] MEDS: Multivitamin TAB 1 TAB PO (09:01)
[2020-02-14] MEDS: Folic Acid 1 MG TAB PO (09:01)
[2020-02-14] MEDS: Apixaban 2.5 MG TAB PO ×2 (09:01→20:06)
[2020-02-14] MEDS: Ferrous Sulfate 325 MG TAB PO (09:01)
[2020-02-14] MEDS: Methadone 5 MG TAB PO (09:01)
[2020-02-14 10:09] LABS: Magnesium 2.1 mg/dL (1.8-2.4)
--- NOTE | 2020-02-14 11:00 | DI.US_ITS ---
APPROVED REPORT EXAM: Comprehensive 2D, Doppler, and color-flow Echocardiogram Patient Location: In-Patient Room/Bed: 207A Auto Appraiser: Anne Haney RDCS (AE) Indications: Elevated troponin, CHF Conclusion Left Ventricle : The left ventricle is normal size. The left ventricular systolic function is normal. The left ventricular ejection fraction is within the normal range. There is normal left ventricular wall thickness. There is normal LV segmental wall motion. The left ventricular diastolic function is normal. LVEF is 55-60%. Right Ventricle : The right ventricle is normal size. The right ventricular systolic function is norm al. Atria : The left atrium size is normal. The right atrium size is normal. Aortic Valve : Aortic valve is trileaflet. The Aortic valve is sclerotic. There is no aortic valvular stenosis. Mitral Valve : There is mitral annular calcification. No evidence of mitral valve stenosis. Mild to m oderate mitral regurgitation. Mitral regurgitation jet is eccentrically directed and may be underesti mated. Tricuspid Valve : The tricuspid valve is normal in structure. There is no tricuspid valve stenosis. M oderate tricuspid regurgitation Great Vessels : IVC is normal in size and collapses >50% with inspiration. The RVSP 35 mmHg. Compared to echocardiogram dated 12/10/2018: The patient's mitral regurgitation has worsened somewhat. Wall motion Left Ventricle The left ventricle is normal size. The left ventricular systolic function is normal. The left ventric ular ejection fraction is within the normal range. There is normal left ventricular wall thickness. T here is normal LV segmental wall motion. The left ventricular diastolic function is normal. There is no ventricular septal defect visualized. LVEF is 55-60%. Right Ventricle The right ventricle is normal size. The right ventricular systolic function is normal. Atria The left atrium size is normal. The right atrium size is normal. The interatrial septum is intact wit h no evidence for an atrial septal defect. Aortic Valve Aortic valve is trileaflet. The Aortic valve is sclerotic. There is no aortic valvular stenosis. Trac e to mild aortic regurgitation. Mitral Valve There is mitral annular calcification. No evidence of mitral valve stenosis. Mild to moderate mitral regurgitation. Mitral regurgitation jet is eccentrically directed and may be underestimated. Mild jacqueline ral valve prolapse. Tricuspid Valve The tricuspid valve is normal in structure. There is no tricuspid valve stenosis. Moderate tricuspid regurgitation Pulmonic Valve The pulmonary valve is normal in structure. There is no pulmonic valvular stenosis. Trace pulmonic re gurgitation. Great Vessels The aortic root is normal in size. The ascending aorta is normal in size. Aortic arch is not well vis ualized. IVC is normal in size and collapses >50% with inspiration. The RVSP 35 mmHg. Pericardium There is no pericardial effusion. There is no pleural effusion. 2D Dimensions IVSD d PLAX 0.73 cm F: 0.6-1.0 LV Vol A2C d MOD 53.8 mL LVPW d PLAX 0.74 cm F: 0.6 - 1.0 LV Vol A4C d MOD 52.0 mL LVID d PLAX 4.08 cm F: 3.8 - 5.2 LA vol/ BSA A2C s A-L 22.4 mL/m2 LVDs 2.65 cm F: 2.2 - 3.5 LA vol/ BSA A4C s A-L 24.1 mL/m2 Ao Root d 3.55 cm F: 2.7 - 3.3 LA Vol/ BSA Biplane s A-L 24.8 mL/m2 RA Area A4C 17.64 cm2 LA Area A4C s MOD 15.31 cm2 RA Vol/ BSA A4C s A-L 32.7 mL/m2 LA Area A2C s MOD 13.86 cm2 Ao Asc Diam d 3.27 cm F: 2.3 - 3.1 LV EF A4C MOD 59.7 % LV EF Teichholz 64.7 % LV EF A2C MOD 66.6 % LVEF (Arellano's) 63.68 % F: 54 - 74 LV EF Biplane MOD 63.7 % LV Volume 42.74 mL F: 46 - 106 LV Volume Index 25.14 mL/m2 F: 29 - 61 LV Vol Biplane MOD 53.9 mL FS 34.95 % LV Diastology MV E' medial 0.106 (>0.07 m/s) E/A Ratio 0.9 LV E/e MED 6.45 (<14) MV E Vmax 0.68 (0.4-1.3 m/s) MV E' lateral 0.108 (>0.1 m/s) MV A Vmax 0.75 (0.4-1.3 m/s) LV E/e LAT 6.35 (<14) MV E/A Ratio 0.91 MV E/E' medial 6.48 MV E/E' lateral 6.36 Aortic Valve LVOT Vmax 1.00 m/s AR DT 1063 msec LVOT Mean Yevgeniy. 0.63 m/s AR PHT 308 msec LVOT Peak Grad 4.0 mmHg LVOT Mean Grad 1.9 mmHg LVOT VTI 0.209 m AoV Vmax 1.32 (0.5-1.3 m/s) Velocity Ratio 0.75 AoV Mean Yevgeniy. 0.88 m/s AoV Peak Grad 7.0 mmHg AoV Mean Grad 3.5 (<5 mmHg) AoV VTI 0.245 (0.18-0.25 m) Mitral Valve MV DT 211 (160-240 msec) MR Vmax 5.40 m/s MV PHT 61 msec MR VTI 1.080 m MV Area PHT 3.59 cm2 MR Peak Grad 116.7 mmHg MR Mean Grad 77.3 mmHg Pulmonary Valve PV Vmax 0.91 (0.5-1.5 m/s) RVOT Peak Gr. 1.80 mmHg PV Peak Grad 3.3 mmHg RVOT Mean Gr. 0.90 mmHg PV Mean Grad 1.8 mmHg RVOT VTI 0.140 m PV VTI 0.173 m RVOT Vmax 0.67 m/s Tricuspid Valve TR Peak Grad 32.1 mmHg TR Vmax 2.84 m/s RA Pressure 3.00 mmHg RVSP (TR) 35.2 mmHg
--- NOTE | 2020-02-14 11:19 | PDOC.CMIN ---
- If Service Date Differs Date of service: 02/14/20 Time of Service: 11:19 Care Management Initial Assess REASON FOR HOSPITALIZATION:: Weakness, Hypoxia PAST MEDICAL HISTORY/PAST SURGICAL HISTORY:: Medical History . Aspiration pneumonia (Acute). Atrial fibrillation (Chronic). B12 deficiency (Chronic). Cardiomyopathy (Acute). Echo 12/10/2018: EF 60-65%, up from 35% previously; does have diastolic dysfunction. CHF (congestive heart failure) (Resolved). Chronic constipation (Chronic). Chronic insomnia (Chronic). Chronic pain (Chronic). on methadone therapy. Compression fracture of spine (Chronic). Depression (Inactive). Dysphagia (Acute). 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 Hx of deep venous thrombosis (Resolved). Lumbago (Resolved). Macrocytic anemia (Resolved). Malnutrition (Resolved). Myasthenia gravis (Chronic). Osteoporosis (Chronic). Peripheral neuropathic pain (Inactive). Post herpetic neuralgia (Resolved). Pulmonary arterial hypertension (Chronic). PA pressure 35-40 mm Hg. Sacral decubitus ulcer, stage IV (Inactive). Surgical History (Updated 02/04/20 @ 16:00 by Shreya Parker MD). Abdominal fistula (Resolved 08/17/18). repair by Dr Elizalde. AV fistula (Inactive). RUE. Gastrostomy complication (Resolved 08/17/18). gastric enteric fistula repair by Dr Elizalde. Gastrostomy infection (Resolved 08/10/18). Dr Elizalde, excised tissue at old g-tube site and closed g-tube tract surgically. Gastrostomy Tube Placement (Resolved). H/O wisdom tooth extraction (Acute). S/P appendectomy (Acute) PREVIOUS FUNCTIONAL STATUS/SOCIAL/FAMILY SUPPORTS:: Tanja resides in [place] with her son and daughter in law. She had previously been living in [place] when her a year ago. At that time, her son and daughter in law asked her to move in with them and she agreed. Tanja has three additional adult children who do not live locally. 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 She reports that her family assists her with bathing, dressing and food preparation. She is independent with her medications. She utilizes a walker to ambulate and relies on [facility] and family for transportation. CURRENT FUNCTIONAL STATUS:: Tanja was lying in bed when CM met with her. She reported that she is feeling better today, as she can now lie flat, which she wasn't able to do at home. She stated that her shortness of breath is getting better, but her feet are still swollen. She also stated that she would like her diarrhea to be gone prior to returning home this time, as it was difficult for her family to manage. She stated that she would like to be up and walking soon, as she knows she needs to gain strength before returning home. CM discussed a short rehab stay, which she stated that she would prefer not to, but she would agree if it is the best plan. CM will continue to follow. ADVANCE DIRECTIVES:: On file at [facility]. Frankie Carpio (son) health care agent Has patient been provided with information about the portal?: No Did the patient sign up for the portal?: No CODE STATUS:: DNR/DNI INSURANCE COVERAGE / FINANCIAL ISSUES:: [employer] [facility], Medicare. CURRENT HOME/COMMUNITY SERVICES/EQUIPMENT:: Tanja has home health services for wound treatment daily and She utilzes a walker to ambulate. She goes to [facility] where her neurologist is and receives her Plasmapheresis. PRIMARY CARE PHYSICIAN:: Maribell Choi POTENTIAL DISCHARGE NEEDS:: Follow up scheduled prior to discharge with primary care provider, resumption of home health services. PATIENT/FAMILY EDUCATION NEEDS:: Discharge education, any limitations, and follow up plan of care. Ask Me Three discussion. ANTICIPATED BARRIERS TO DISCHARGE:: No anticipated barriers at this time. TRANSPORTATION:: Tanja will transport via private vehicle with her family. PLAN:: Tanja will discharge home when medically ready per MD. Patient will discharge home, likely with increased home health services and follow up with her PCP. CM will continue to offer support to patient, family and care team regarding discharge planning and disposition. Readmission - Within the Past 30 Days Yes or No: Y - Date of First Admission Date of 1st Admission: 02/04/20 - Date of this Admission Date of Admission: 02/13/20 This admission was: Through ED - Office Visit Since 1st Admission Have you seen your PCP in the office since discharge?: No Had an appointment Been Scheduled?: No Describe barriers for scheduling or getting an appointment: PCP's not scheduling routine F/U appointments currently due to Covid 19. - Speicalist Appointments Have you seen any other specialist since your 1st Admission?: No - I. Interview patient and/or Family Difficulty reaching your doctor or getting an office appt?: No Have you had trouble purchasing/ or taking medication?: No Have you had trouble with getting meals at home?: No Did you feel ready for discharge when you left the last time: No (Tanja stated that she was not ready) Why did you not feel ready for discharge?: Tanja stated that she did not feel ready to return home because she was still having diarrhea, she was still short of breath, weak, and not able to lie flat. Were services received that you thought were set up on disch: Yes What services were received?: VNA RN Did you call your physician beore you came to the ED?: No How do you think you became sick enough to come back?: Tanja stated that she was feeling weak, short of breath and could not lie flat on her back to sleep. She wasn't sleeping well, and still had diarrhea, so she felt dehydrated. - If the patient had a VNA ordered Did the patient have a VNA order?: Yes Did you call the VNA before you came?: Yes Did the VNA tell you to come to the hospital?: Yes Do you know if the VNA called your physician?: No - ED visits How many ED visits in the past 12 months: 2 - Assessment for Readmission Summary of readmission circumstances, based upon interviews: aTnja did not feel comfortable returning home on her last admission, as she was still having diarrhea, she was still weak, and she was still short of breath. She did have VNA services, but not every day. She was contacted by VNA, and she told them that she didn't need to see them, but later stated that she should have let them visit her. Tanja feels like she needs more strengthening from PT prior to returning home, and she would like to not be having diarrhea anymore, as it is hard for her family to manage. She reported that she is already feeling better, not as short of breath, and her diarrhea is slowing down, but she would like to walk around more to gain strength. CM discussed the option of going to a SNF for short term rehab, which she did not agree was the best plan. She did state that she would consider going to a SNF as a last resort, if it was the best option.
--- NOTE | 2020-02-14 12:34 | NS.NUTBLAN_ITS ---
Date of service: 02/14/20 Time of Service: 13:49 Nutritional Consult ASSESSMENT: 84 year old female readmitted after a 9 day admission at [facility]. Admitted with weakness, PMH: aspiration PNA, CHF, myasthemia, chronic steriod use, with stage 4 pressure wound. Meds include iron, folic acid, MVI and lasix. Previous admission was on 1000 ml fluid restriction. Weight has been stable during admit and currently. Following Low Sodium Meals with good intake. recommend adding Stephen - 1 packet BID to aid in wound healing. Estimated Needs: 1770(30kcal/kg) kcal, 82 grams protein (1.5 g pro/kg), 1770 ml fluid. At high nutritional risk in view of increased nutrient needs as with stage 4 pressure wounds. Consider fluid restriction to reduce fluid intake in excess NUTRITIONAL DIAGNOSIS: Increased nutrient needs due to stage 4 pressure wound INTERVENTION: Stephen - 1 packet BID 1000 ml fluid restriction MONITORING AND EVALUATION: weight, po intake, wound healing. labs Time Spent in Nutritional Counseling and Treatment: 10 min spent face to face
--- NOTE | 2020-02-14 12:34 | W.PM.PROGNOT ---
Date of Service Date of service: 02/14/20 Time of Service: 12:34 Assessment and Plan Assessment and plan (1) Elevated troponin: Status: Acute Assessment and plan: in setting of heart failure and no chest pain. troponin level remains flat and she is hemodynamically stable. echocardiogram scheduled for today. continue to trend today. (2) CHF (congestive heart failure): Status: Resolved Assessment and plan: patient improved overnight with diuresis. awaiting echo today. continue to monitor I&O, daily weights. monitor electrolytes closely while diuresing and replete as needed. troponin bump likely represents cardiac strain in setting of CHF with no reports of chest pain. troponins remain flat, will continue to follow. (3) Myasthenia gravis: Status: Chronic Assessment and plan: continues to receive IV steroids. reports her symptoms during exacerbation include neck and right eyelid weakness. She reports these symptoms stable. she states she is due for plasmaphoresis tomorrow at 10 am, she typically received treatments every 2 weeks at [facility] and was due Thursday but d/t recent hospitalization rescheduled to tomorrow. She has rescheduled now to at 11 am. (4) Hypokalemia: Status: Acute Assessment and plan: magnesium level normal. will continue to replete potassium, anticipate ongoing replacement during active diuresis. will repeat in am. (5) Discharge planning issues: Status: Acute Assessment and plan: plan to discharge home tomorrow if remains medically stable. Subjective Subjective Patient reports: feels better Interval history since last seen: patient reports that she has improved breathing since receiving lasix. she states she noticed after discharge from the hospital she was developing peripheral edema and was unable to lie flat. she states this has improved overnight since receiving lasix. she denies any chest pain, has moist ongoing cough which has improved and not worsening. she has had no fevers. Exam Const General: cooperative and ill appearing chronically Nutritional Appearance: average body habitus Orientation: alert, awake and oriented x3 HENMT Head: normal to inspection Mouth: oral mucosae normal Resp Effort & Inspection: normal respiratory effort and able to speak in complete sentences Auscultation: rales bilaterally 1/[address] up and no wheezes Cardio Rate: regular rate Rhythm: regular rhythm GI Inspection: normal to inspection Palpation: soft Auscultation: normal bowel sounds Skin General skin exam: ecchymosis Neuro General: patient alert, patient awake and patient oriented x3 Cognition: normal cognition Speech: speech normal Extrem General: pedal edema bilaterally (trace to 1+) Objective Objective Clinical Data: Abnormal lab results 02/13/20 02/13/20 02/13/20 Range/Units 17:45 17:45 20:10 WBC 12.00 H (4.4-10.8) k/cumm RBC 3.88 L (4.00-5.20) m/cumm MCV 104.4 H (80-95) fL MCH 33.2 H (27.0-33.0) pg MCHC 31.9 L (32.0-36.0) g/dL Absolute Neutrophils 11.29 H (1.2-6.7) k/cumm Absolute Lymphocytes 0.30 L (1.2-3.4) k/cumm Potassium 3.3 L (3.5-5.1) mmol/L Chloride 97 L (98-107) mmol/L Carbon Dioxide 36.9 H (21.0-32.0) mmol/L BUN 35 H D (7-18) mg/dL Creatinine 1.49 H (0.55-1.02) mg/dL Glucose 138 H (74-106) mg/dL Troponin I 0.09 H* 0.12 H* (<0.06) ng/Ml NT-Pro-B Natriuret Pep 3973 H (<300) pg/mL Total Protein 6.2 L (6.4-8.2) g/dL Albumin 2.5 L (3.4-5.0) g/dL 02/14/20 Range/Units 06:27 WBC (4.4-10.8) k/cumm RBC (4.00-5.20) m/cumm MCV (80-95) fL MCH (27.0-33.0) pg MCHC (32.0-36.0) g/dL Absolute Neutrophils (1.2-6.7) k/cumm Absolute Lymphocytes (1.2-3.4) k/cumm Potassium (3.5-5.1) mmol/L Chloride (98-107) mmol/L Carbon Dioxide (21.0-32.0) mmol/L BUN (7-18) mg/dL Creatinine (0.55-1.02) mg/dL Glucose (74-106) mg/dL Troponin I 0.08 H* (<0.06) ng/Ml NT-Pro-B Natriuret Pep (<300) pg/mL Total Protein (6.4-8.2) g/dL Albumin (3.4-5.0) g/dL Vital Signs Temperature 36.5 C 02/14/20 07:25 Temperature Source Temporal Artery Scan 02/14/20 07:25 Pulse 83 02/14/20 11:16 Pulse Rhythm Irregular 02/14/20 03:30 Pulse 90 02/13/20 20:20 Respiratory Rate 12 02/14/20 11:16 Respiratory Effort Non-Labored 02/14/20 03:30 Respiratory Depth Normal 02/14/20 03:30 Respiratory Pattern Normal 02/14/20 03:30 Blood Pressure 126/83 02/14/20 07:25 Blood Pressure Mean 76 02/13/20 20:01 Blood Pressure Position Supine 02/13/20 15:47 Pulse Oximetry 95 02/14/20 11:16 Oxygen Delivery Method Nasal Cannula 02/14/20 11:02 Oxygen Flow Rate 1 02/14/20 11:02 Pain Level 2 02/14/20 09:01 Comment 02/13/20 21:44 Intake & Output 02/13/20 02/14/20 02/14/20 23:59 11:59 23:59 Intake Total 100 / 100 1597.333 / 1597.333 Balance 100 / 100 1597.333 / 1597.333 Weight 60.1 kg 59.8 kg Intake: IV 100 / 100 1597.333 / 1597.333 Other: Urine Color Yellow Yellow Urine Appearance Clear Clear Urine Odor None Comment smell of medication had some stool in it Stool Size Moderate Stool Characteristics Soft Brown Voiding Methods Diaper Bedside Commode Laboratory Results WBC 12.00 k/cumm (4.4-10.8) H 02/13/20 17:45 RBC 3.88 m/cumm (4.00-5.20) L 02/13/20 17:45 Hgb 12.9 g/dL (12.0-15.5) 02/13/20 17:45 Hct 40.5 % (36.0-46.0) 02/13/20 17:45 MCV 104.4 fL (80-95) H 02/13/20 17:45 MCH 33.2 pg (27.0-33.0) H 02/13/20 17:45 MCHC 31.9 g/dL (32.0-36.0) L 02/13/20 17:45 RDW 14.4 % (11.7-14.6) 02/13/20 17:45 Plt Count 153 x1000/uL (130-400) 02/13/20 17:45 MPV 9.7 fL (8.0-11.0) 02/13/20 17:45 Immature Gran % 0.8 % 02/13/20 17:45 Neutrophils % 94.1 02/13/20 17:45 Lymphocytes % 2.5 02/13/20 17:45 Monocytes % 2.4 02/13/20 17:45 Eosinophils % 0.1 02/13/20 17:45 Basophils % 0.1 02/13/20 17:45 Absolute Neutrophils 11.29 k/cumm (1.2-6.7) H 02/13/20 17:45 Absolute Lymphocytes 0.30 k/cumm (1.2-3.4) L 02/13/20 17:45 Absolute Monocytes 0.29 k/cumm (0.11-0.7) 02/13/20 17:45 Absolute Eosinophils 0.01 k/cumm (0.0-0.7) 02/13/20 17:45 Absolute Basophils 0.01 k/cumm (0.0-0.2) 02/13/20 17:45 Sodium 138 mmol/L (136-145) 02/13/20 17:45 Potassium 3.3 mmol/L (3.5-5.1) L 02/13/20 17:45 Chloride 97 mmol/L (98-107) L 02/13/20 17:45 Carbon Dioxide 36.9 mmol/L (21.0-32.0) H 02/13/20 17:45 Anion Gap 4.1 mmol/L (3-11) 02/13/20 17:45 BUN 35 mg/dL (7-18) H D 02/13/20 17:45 Creatinine 1.49 mg/dL (0.55-1.02) H 02/13/20 17:45 Estimated GFR/1.73 m2 33.50 (mL/min/1.73m2) 02/13/20 17:45 Glucose 138 mg/dL (74-106) H 02/13/20 17:45 Calcium 9.0 mg/dL (8.5-10.1) 02/13/20 17:45 Magnesium 2.1 mg/dL (1.8-2.4) 02/14/20 06:27 Total Bilirubin 0.4 mg/dL (0.2-1.0) 02/13/20 17:45 AST 17 U/L (15-37) 02/13/20 17:45 ALT 27 U/L (14-59) 02/13/20 17:45 Alkaline Phosphatase 47 U/L (46-116) 02/13/20 17:45 Troponin I 0.08 ng/Ml (<0.06) H* 02/14/20 06:27 NT-Pro-B Natriuret Pep 3973 pg/mL (<300) H 02/13/20 17:45 Total Protein 6.2 g/dL (6.4-8.2) L 02/13/20 17:45 Albumin 2.5 g/dL (3.4-5.0) L 02/13/20 17:45 Urine Color Cancelled 02/13/20 19:08 Urine Clarity Cancelled 02/13/20 19:08 Urine pH Cancelled 02/13/20 19:08 Ur Specific [place] Cancelled 02/13/20 19:08 Urine Protein Cancelled 02/13/20 19:08 Urine Ketones Cancelled 02/13/20 19:08 Urine Blood Cancelled 02/13/20 19:08 Urine Nitrite Cancelled 02/13/20 19:08 Urine Bilirubin Cancelled 02/13/20 19:08 Urine Urobilinogen Cancelled 02/13/20 19:08 Ur Leukocyte Esterase Cancelled 02/13/20 19:08 Urine Glucose Cancelled 02/13/20 19:08
--- NOTE | 2020-02-14 12:43 | PHA.ADMREV ---
Pharmacy Clinical Review - Admission Clinical Review (Last Reviewed 02/13/20 @ 20:11 by Seth Cruz MD) Weakness (Acute) Sulfa (Sulfonamide Antibiotics) Allergy (Verified 02/13/20 16:04) Hives Height 5 ft 8.11 in Weight 59.8 kg - Renal Dosing Renal Dosing: BUN 35 mg/dL (7-18) H D 02/13/20 17:45 Creatinine 1.49 mg/dL (0.55-1.02) H 02/13/20 17:45 Medications needing adjustments: Reviewed (CRCL ~27ML/MIN) - Anticoagulation Anticoagulation: Hgb 12.9 g/dL (12.0-15.5) 02/13/20 17:45 Hct 40.5 % (36.0-46.0) 02/13/20 17:45 Plt Count 153 x1000/uL (130-400) 02/13/20 17:45 Creatinine 1.49 mg/dL (0.55-1.02) H 02/13/20 17:45 DVT Prohphylaxis: Reviewed Medications: Apixaban Therapeutic Anticoagulation: Reviewed Medications: Apixaban - Opiate Usage Evaluate Pain Scale/Pains Meds: Reviewed Scheduled Bowel Reg ordered if on Opiates?: No (had BM today) - Relevant Labs Sodium 138 mmol/L (136-145) 02/13/20 17:45 Potassium 3.3 mmol/L (3.5-5.1) L 02/13/20 17:45 Chloride 97 mmol/L (98-107) L 02/13/20 17:45 Magnesium 2.1 mg/dL (1.8-2.4) 02/14/20 06:27 - Antimicrobial Stewardship Antibiotic appropriateness: N/A Culture review/Resistance: N/A - DM Control DM Control: Glucose 138 mg/dL (74-106) H 02/13/20 17:45 Insulin Dosing: N/A - Heart Failure/AL Heart Failure/AL: Troponin I 0.08 ng/Ml (<0.06) H* 02/14/20 06:27 NT-Pro-B Natriuret Pep 3973 pg/mL (<300) H 02/13/20 17:45 EF%, FAHAD's, B-Blockers, Diuretics: Reviewed (not on any meds at home, one lasix dose given here) - BP Control BP Control: Blood Pressure 126/83 Blood Pressure 107/59 If elevated: Reviewed - QTc Review If Elevated: Reviewed (461) - IV to PO Switch IV Medications: Reviewed (iv solumedrol, most PO) - Home Meds Home Med List reviewed: Reviewed - Current meds Current Medication Order Review: Intervened (Home med vs inpt list gabapentin comment field missed. will adjust to match home regimen)
[2020-02-14] MEDS: guaiFENesin 600 MG TABCR PO ×2 (13:18→20:07)
[2020-02-14] MEDS: Furosemide 40 MG/4 ML VIAL IVP (13:18)
[2020-02-14 13:19] LABS: Anion Gap 6.7 mmol/L (3-11); BUN 46 mg/dL (7-18); CO2 34.3 mmol/L (21.0-32.0); CREATININE 1.31 mg/dL (0.55-1.02); Calcium 8.7 mg/dL (8.5-10.1); Chloride 98 mmol/L (98-107); Estimated GFR 38.87 (mL/min/1.73m2); Glucose 146 mg/dL (74-106); Potassium 3.9 mmol/L (3.5-5.1); Sodium 139 mmol/L (136-145)
[2020-02-14 13:37] LABS: Troponin I 0.12 ng/Ml (<0.06)
--- NOTE | 2020-02-14 15:51 | CHAPLAIN ---
Tanja was sitting up in her chair when I visited this morning. She was discharged yesterday, but said believes she went home too soon. She hopes to work on getting stronger before she goes home again. She also said her antibiotics are done now, she is hoping her diarrhea will clear up. Tanja is a [employer], and keeps in tough through emails with two [employer] Meets she attended in the past. Currently [facility] [employer] in [place], [place].
[2020-02-14] MEDS: Lactobacillus Acidophilus CAP 1 CAP PO (17:36)
--- NOTE | 2020-02-14 18:10 | DI.RAD_ITS ---
EXAM: 2D digital imaging was performed. CLINICAL HISTORY: diarrhea, abdominal distension. COMPARISON: XR ABD FLAT UPRIGHT PA CHEST from 08/16/2018 XR PORTABLE CHEST AP from 02/13/2020 TECHNIQUE: Supine and upright views of the abdomen was performed. FINDINGS: LUNG BASES: Clear. Scarring is again seen in the left lung base. BOWEL GAS PATTERN: There are mildly dilated loops of both small and large bowel. There is air seen i n the rectum. The findings may reflect a partial small bowel obstruction or an ileus. FREE AIR: None. CALCIFICATIONS: No radiopaque calcifications. OSSEOUS STRUCTURES: Old right rib fractures are noted. Degenerative changes are present throughout t he spine. OTHER FINDINGS: Suture material is seen in the left abdomen. Atherosclerosis is present. IMPRESSION: Mildly dilated loops of both small and large bowel. This may represent a partial small bowel obstruc tion or an ileus. Follow-up as clinically appropriate. DATA REPOSITORY: RADIATION DOSE DELIVERED:
[2020-02-14 18:19] LABS: C-Reactive Protein 11.86 mg/dL (0.0-0.3)
--- NOTE | 2020-02-14 18:23 | DI.VRAD_ITS ---
PROCEDURE INFORMATION: Exam: XR Abdomen, 2 Views Exam date and time: 02/14/2020 5:56 PM Age: 84 years old Clinical indication: Other: Diarrhea, abdominal distension TECHNIQUE: Imaging protocol: XR of the abdomen. Views: 2 Views. COMPARISON: CR XR ABD FLAT UPRIGHT PA CHEST 08/16/2018 4:57 PM FINDINGS: Gastrointestinal tract: There are air-fluid levels seen within the bowel on the upright view, and bowel obstruction cannot be excluded in this region. No pneumoperitoneum. Intraperitoneal space: Surgical sutures are seen in the left abdomen. Bones/joints: Degenerative changes noted throughout the lumbar spine. Healing rib fractures again noted on the right. IMPRESSION: Air-fluid levels within the visualized bowel, which can sometimes be seen in the setting of bowel obstruction. A CT abdomen and pelvis with oral and IV contrast is recommended for further evaluation. Dictated and Authenticated by: Chrissy Barton MD. Ordering:MARCE Sharp MD
[2020-02-14 19:06] LABS: Procalcitonin 0.3 ng/mL
[2020-02-14] MEDS: Patch Removal 1 EACH TP (20:06)
[2020-02-14] MEDS: HYDROmorphone 2 MG TAB PO (20:06)
[2020-02-14] MEDS: Melatonin 3 MG TAB 9 MG PO (22:02)
[2020-02-15] VITALS (10 sets, daily range): BP systolic 99–121; BP diastolic 59–70; PULSE 69–91; RESP 2–20; TEMP 35.7–36.8; O2SAT 94–99
[2020-02-15] MEDS: Normal Saline Flush 10 ML SYR IVP ×3 (05:37→17:39)
[2020-02-15] MEDS: Albuterol/Ipratropium 3 ML UPD VIAL UPD ×3 (05:37→17:39)
[2020-02-15] MEDS: methylPREDNISolone SUCC 40 MG VIAL IVP ×2 (05:37→17:39)
[2020-02-15 07:23] LABS: Abs Immature Grans 0.06 k/cumm (0.0-0.09); Immature Grans % 0.5 %; Lymphocytes % 2.4; Mean Corp. HGB Concentration 31.4 g/dL (32.0-36.0); Mean Corpuscular Hemoglobin 32.7 pg (27.0-33.0); Mean Corpuscular Volume 103.9 fL (80-95); Mean Platelet Volume 10.4 fL (8.0-11.0); Monocytes % 2.4; Neutrophils % 94.7; Platelet Count 158 x1000/uL (130-400); RBC 3.06 m/cumm (4.00-5.20); RBC Distribution Width 13.8 % (11.7-14.6); White Blood Cell Count 13.19 k/cumm (4.4-10.8)
[2020-02-15 07:26] LABS: Absolute Lymphocyte Count 0.32 k/cumm (1.2-3.4); Absolute Monocyte Count 0.32 k/cumm (0.11-0.7); Absolute Neutrophil Count 12.49 k/cumm (1.2-6.7)
[2020-02-15 07:31] LABS: HCT 31.8 % (36.0-46.0)
[2020-02-15 07:44] LABS: Anion Gap 4.3 mmol/L (3-11); BUN 49 mg/dL (7-18); CO2 35.7 mmol/L (21.0-32.0); Calcium 8.6 mg/dL (8.5-10.1); Chloride 102 mmol/L (98-107); Estimated GFR 43.01 (mL/min/1.73m2); Glucose 148 mg/dL (74-106); NT-proBNP 2899 pg/mL (<300); Potassium 3.1 mmol/L (3.5-5.1); Sodium 142 mmol/L (136-145)
[2020-02-15 07:46] LABS: Troponin I 0.12 ng/Ml (<0.06)
[2020-02-15] MEDS: guaiFENesin 600 MG TABCR PO ×2 (08:42→19:33)
[2020-02-15] MEDS: Lidocaine 5% Patch TD (08:42)
[2020-02-15] MEDS: Lactobacillus Acidophilus CAP 1 CAP PO ×3 (08:42→16:06)
[2020-02-15] MEDS: Gabapentin 300 MG CAP PO (08:42)
[2020-02-15] MEDS: Apixaban 2.5 MG TAB PO ×2 (08:43→19:33)
[2020-02-15] MEDS: Folic Acid 1 MG TAB PO (08:43)
[2020-02-15] MEDS: Methadone 5 MG TAB PO (08:43)
[2020-02-15] MEDS: Multivitamin TAB 1 TAB PO (08:43)
[2020-02-15] MEDS: Ferrous Sulfate 325 MG TAB PO (08:43)
--- NOTE | 2020-02-15 09:28 | PTTR_ITS ---
Date of service: 02/15/20 Time of Service: 08:50 PT Notes Visit Reasons: WEAKNESS, HYPOXIA PT Outpatient Treatment Note Patient Location: Med Surg Referring Provider: PRECAUTIONS: Fall. Activity as tolerated. Needs 2 L min of O2 for all mobility ADL performance per RT recommendation. SUBJECTIVE: Patient states she is looking forward to doing some exercise. Was feeling much better today than she was yesterday. The swelling in her legs is significantly improved allowing her to sleep more comfortably at night in a supine position. She request to hold off on any walking outside of the room secondary to diarrhea. Only complaints of discomfort are in her neck related to her myesthesia gravis. Pain number: 2 OBJECTIVE: PAIN: 0/10 BED MOBILITY/TRANSFERS Sit-stand: Supervision Stand-sit: Supervision GAIT Assistive Device: FWW Weight bearing: FWB Assist: supervision Distance: 15'x4 with sitting breaks following each 15 foot excursion. Deviation: Decreased michelle. Forward flexed trunk position with moderate reliance on UE support to FWW. ADLs: Patient seated in chair/recliner with legs elevated at start of PT. She performed sit to stand transfer with supervision to a front wheeled walker 4 times. VITALS: Patient resting at 91% SaO2 on 2 L supplemental oxygen. Post-ambulation, she is at 88 % by ear probe. After second repetition of walking, she's 90% at st art and desaturates to 85%. This does rebound quickly with pursed lip breathing and proper head on neck posturing to avoid excessively flexed posturing due to her myesthesia gravis. THEREX: Progressed ambulation to multiple short distance walks with close monitoring of vitals, and with elimination of w/c follow. She tolerates this well. Perform therapeutic exercises per flow sheets including hip Adduction hip adduction, long arc quads, ankle pumps and alternating hip flexion in sitting. 2 cycles for each. ASSESSMENT: Significantly improved mobility today. Still desaturating with oxygen on 2 L supplemental. We had discussed the possibility of home health PT upon discharge, however patient would like to limit the number of people coming into her home to reduce her risk for acquiring COVID 19. Given her continued breathing difficulties feel she requires further physical therapy times to wean from supplemental oxygen. Consider [facility] care charge. PLAN: We will continue progressing therapeutic exercises during her stay, to maximize safety and mobility and allow for safe transition to [facility] facility versus home with TREATMENT CODE/TIME: 30 minutes ([id number]) Dirk Albarran PT, DPT
[2020-02-15] MEDS: Furosemide 40 MG/4 ML VIAL IVP (09:49)
[2020-02-15] MEDS: Potassium Chloride 20 MEQ TABCR PO ×3 (09:49→19:33)
--- NOTE | 2020-02-15 10:41 | W.PM.PROGNOT ---
Date of Service Date of service: 02/15/20 Time of Service: 10:42 Assessment and Plan Assessment and plan (1) Diarrhea: Status: Resolved Assessment and plan: cdiff has been negative, she has been using imodium, flat and upright yesterday concerning for obstruction. gen surg consult placed. (2) Elevated troponin: Status: Acute Assessment and plan: remains elevated and flat. no chest pain (3) CHF (congestive heart failure): Status: Resolved Assessment and plan: responding to diuresis. respiratory status improving, BNP down, echo yesterday shows preserved LV function but with increased MVR. continue lasix, replete electrolytes as needed. (4) Weakness: Status: Acute Assessment and plan: from extended hospitalizations, continue PT. will likely need rehab prior to returning home (5) Atrial fibrillation: Status: Chronic Assessment and plan: chronic, rate controlled, continue home medications. is anticoagulated on apixaban (6) Myasthenia gravis: Status: Chronic Assessment and plan: continues to receive IV steroids. reports her symptoms during exacerbation include neck and right eyelid weakness. She reports these symptoms stable. she states she is due for plasmaphoresis now tomorrow at 11 am, she typically received treatments every 2 weeks at [facility] and was due Thursday but d/t recent hospitalization has been rescheduled for tomorrow. She has rescheduled now to at 11 am. (7) DVT prophylaxis: Status: Acute Assessment and plan: fully anticoagulated on apixaban (8) Discharge planning issues: Status: Acute Assessment and plan: case management following, anticipate rehabilitation stay prior to returning home. (9) Hypokalemia: Status: Acute Assessment and plan: due to diuresis, diarrhea, add magnesium level, which was normal yesterday. replete and follow. Subjective Subjective Patient reports: no new complaints Interval history since last seen: reports breathing continues to improve. reports improved peripheral edema. cough improving. diarrhea continues but improved. took imodium this morning. no nausea or vomiting, no abdominal pain Exam Const General: cooperative, comfortable, no acute distress, frail appearing and ill appearing chronically Nutritional Appearance: average body habitus Orientation: alert, awake and oriented x3 HENMT Mouth: oral mucosae normal (no exudates) and tongue normal Resp Effort & Inspection: normal respiratory effort (oxygenating well on room air) and cough Auscultation: diminished lung sounds bilaterally (bases), no rhonchi and no wheezes Cardio Rhythm: abnormal rhythm (controlled afib) irregularly irregular GI Inspection: distended Palpation: soft Auscultation: abnormal bowel sounds and hypoactive bowel sounds Skin General skin exam: ecchymosis (scattered upper extremities) Lesions: lesion noted (sacral ulcer, wound care following, not seen today, see nursing/wound notes) Rashes: no rashes Neuro General: patient alert, patient awake, patient oriented x3 and moves all extremities Cognition: normal cognition Speech: speech normal Motor: muscle tone normal throughout Extrem General: normal to inspection, full ROM and edema Laterality: bilateral Objective Objective Clinical Data: Abnormal lab results 02/14/20 02/14/20 02/14/20 Range/Units 12:50 12:50 12:50 WBC (4.4-10.8) k/cumm RBC (4.00-5.20) m/cumm Hgb (12.0-15.5) g/dL Hct (36.0-46.0) % MCV (80-95) fL MCHC (32.0-36.0) g/dL Absolute Neutrophils (1.2-6.7) k/cumm Absolute Lymphocytes (1.2-3.4) k/cumm Potassium (3.5-5.1) mmol/L Carbon Dioxide 34.3 H (21.0-32.0) mmol/L BUN 46 H D (7-18) mg/dL Creatinine 1.31 H (0.55-1.02) mg/dL Glucose 146 H (74-106) mg/dL Troponin I 0.12 H* (<0.06) ng/Ml C-Reactive Protein 11.86 H (0.0-0.3) mg/dL NT-Pro-B Natriuret Pep (<300) pg/mL 02/15/20 02/15/20 Range/Units 07:08 07:08 WBC 13.19 H (4.4-10.8) k/cumm RBC 3.06 L (4.00-5.20) m/cumm Hgb 10.0 L D (12.0-15.5) g/dL Hct 31.8 L D (36.0-46.0) % MCV 103.9 H (80-95) fL MCHC 31.4 L (32.0-36.0) g/dL Absolute Neutrophils 12.49 H (1.2-6.7) k/cumm Absolute Lymphocytes 0.32 L (1.2-3.4) k/cumm Potassium 3.1 L (3.5-5.1) mmol/L Carbon Dioxide 35.7 H (21.0-32.0) mmol/L BUN 49 H (7-18) mg/dL Creatinine 1.20 H (0.55-1.02) mg/dL Glucose 148 H (74-106) mg/dL Troponin I 0.12 H* (<0.06) ng/Ml C-Reactive Protein (0.0-0.3) mg/dL NT-Pro-B Natriuret Pep 2899 H (<300) pg/mL Vital Signs Temperature 36.5 C 02/15/20 07:15 Temperature Source Temporal Artery Scan 02/15/20 07:15 Pulse 85 02/15/20 07:15 Pulse Rhythm Irregular 02/15/20 04:54 Pulse 90 02/13/20 20:20 Respiratory Rate 18 02/15/20 07:15 Respiratory Effort Non-Labored 02/15/20 04:54 Respiratory Depth Normal 02/15/20 04:54 Respiratory Pattern Normal 02/15/20 04:54 Blood Pressure 121/59 L 02/15/20 07:15 Blood Pressure Mean 76 02/13/20 20:01 Blood Pressure Position Supine 02/13/20 15:47 Pulse Oximetry 94 L 02/15/20 07:15 Oxygen Delivery Method Nasal Cannula 02/15/20 07:15 Oxygen Flow Rate 1 02/15/20 07:15 Pain Level 2 02/15/20 08:43 Comment 02/14/20 23:30 Intake & Output 02/14/20 02/14/20 02/15/20 11:59 23:59 11:59 Intake Total 2091.333 / 2217.333 125 / 221.333 Balance 2091.333 / 2216.333 125 / 2216.333 Weight 59.8 kg 58.1 kg Intake: IV 1597.333 / 1597.333 Oral 495 / 620 125 / 620 Other: Urine Color Yellow Yellow Yellow Urine Appearance Clear Clear Clear Urine Odor None Normal Normal Comment had some stool in it stool with urine Stool Occult Blood Negative Stool Size Moderate Small Moderate Stool Characteristics Soft Liquid Liquid Brown Voiding Methods Bedside Commode Diaper Bedside Commode Incontinent Laboratory Results WBC 13.19 k/cumm (4.4-10.8) H 02/15/20 07:08 RBC 3.06 m/cumm (4.00-5.20) L 02/15/20 07:08 Hgb 10.0 g/dL (12.0-15.5) L D 02/15/20 07:08 Hct 31.8 % (36.0-46.0) L D 02/15/20 07:08 MCV 103.9 fL (80-95) H 02/15/20 07:08 MCH 32.7 pg (27.0-33.0) 02/15/20 07:08 MCHC 31.4 g/dL (32.0-36.0) L 02/15/20 07:08 RDW 13.8 % (11.7-14.6) 02/15/20 07:08 Plt Count 158 x1000/uL (130-400) 02/15/20 07:08 MPV 10.4 fL (8.0-11.0) 02/15/20 07:08 Immature Gran % 0.5 % 02/15/20 07:08 Neutrophils % 94.7 02/15/20 07:08 Lymphocytes % 2.4 02/15/20 07:08 Monocytes % 2.4 02/15/20 07:08 Eosinophils % 0.0 02/15/20 07:08 Basophils % 0.0 02/15/20 07:08 Absolute Neutrophils 12.49 k/cumm (1.2-6.7) H 02/15/20 07:08 Absolute Lymphocytes 0.32 k/cumm (1.2-3.4) L 02/15/20 07:08 Absolute Monocytes 0.32 k/cumm (0.11-0.7) 02/15/20 07:08 Absolute Eosinophils 0.00 k/cumm (0.0-0.7) 02/15/20 07:08 Absolute Basophils 0.00 k/cumm (0.0-0.2) 02/15/20 07:08 Sodium 142 mmol/L (136-145) 02/15/20 07:08 Potassium 3.1 mmol/L (3.5-5.1) L 02/15/20 07:08 Chloride 102 mmol/L (98-107) 02/15/20 07:08 Carbon Dioxide 35.7 mmol/L (21.0-32.0) H 02/15/20 07:08 Anion Gap 4.3 mmol/L (3-11) 02/15/20 07:08 BUN 49 mg/dL (7-18) H 02/15/20 07:08 Creatinine 1.20 mg/dL (0.55-1.02) H 02/15/20 07:08 Estimated GFR/1.73 m2 43.01 (mL/min/1.73m2) 02/15/20 07:08 Glucose 148 mg/dL (74-106) H 02/15/20 07:08 Calcium 8.6 mg/dL (8.5-10.1) 02/15/20 07:08 Magnesium 2.1 mg/dL (1.8-2.4) 02/14/20 06:27 Total Bilirubin 0.4 mg/dL (0.2-1.0) 02/13/20 17:45 AST 17 U/L (15-37) 02/13/20 17:45 ALT 27 U/L (14-59) 02/13/20 17:45 Alkaline Phosphatase 47 U/L (46-116) 02/13/20 17:45 Troponin I 0.12 ng/Ml (<0.06) H* 02/15/20 07:08 C-Reactive Protein 11.86 mg/dL (0.0-0.3) H 02/14/20 12:50 NT-Pro-B Natriuret Pep 2899 pg/mL (<300) H 02/15/20 07:08 Total Protein 6.2 g/dL (6.4-8.2) L 02/13/20 17:45 Albumin 2.5 g/dL (3.4-5.0) L 02/13/20 17:45 Procalcitonin 0.3 ng/mL 02/14/20 12:50 Urine Color Cancelled 02/13/20 19:08 Urine Clarity Cancelled 02/13/20 19:08 Urine pH Cancelled 02/13/20 19:08 Ur Specific [place] Cancelled 02/13/20 19:08 Urine Protein Cancelled 02/13/20 19:08 Urine Ketones Cancelled 02/13/20 19:08 Urine Blood Cancelled 02/13/20 19:08 Urine Nitrite Cancelled 02/13/20 19:08 Urine Bilirubin Cancelled 02/13/20 19:08 Urine Urobilinogen Cancelled 02/13/20 19:08 Ur Leukocyte Esterase Cancelled 02/13/20 19:08 Urine Glucose Cancelled 02/13/20 19:08
[2020-02-15 11:46] LABS: Magnesium 2.2 mg/dL (1.8-2.4)
--- NOTE | 2020-02-15 15:07 | CMPROGNOTE_ITS ---
- If Service Date Differs Date of service: 02/15/20 Time of Service: 15:07 Care Management Progress Note S/O:Tanja was siting up in a chair when CM met with her. She was pleasant and receptive to conversation. Tanja shared that she is concerned about being able to get her treatment tomorrow and whether or not she should go to a SNF. After much discussion, Tanja has agreed to go to [facility] tomorrow after discharge from [facility] for her plasmaphoresis treatment and then she will return to [facility] and be admitted to [facility]. Tanja verbalized being pleased with the plan. Her [id number] Werner was updated with the details and will provide transport via private vehicle. A: Tanja is an 84 year old woman admitted on 02/13/20 with weakness P:Tanja will likely be discharged to a SNF when medically ready. Referrals have been sent to [facility] and the [facility]. Tanja has an ap pointment tomorrow at 11 am at [facility] for plasmaphoresis. It is hoped that she can discharge from [facility], transport with family to [facility] then return to the area and enter rehab. CM will continue to offer support to patient, family and care team regarding discharge planning and disposition.
--- NOTE | 2020-02-15 15:31 | SCONE_ITS ---
Date of service: 02/15/20 Time of Service: 15:32 Assessment and Plan Assessment and plan (1) Ileus, unspecified: Status: Acute Assessment and plan: Mrs. Carpio has been having diarrhea since her admission for Pneumonia. C.Diff was negative at time of first admission. Clinically her abdomen is soft and non-tender. She is passing flatus and having BM's. Abdominal XRAY shows mild dilatation of the small and large bowel with air throughout. Clinically at this time her symptoms are more consistant with an ileus. P\\ Continue with probiotics Agree with stopping the immodium If diarrhea worsens would repeat the C.Diff test If she develops N/V then would recommend a CT scan abdomen and pelvis with oral and IV contrast if possible We will sign off, but if you need our assistance please give us a call and we will be glad to see Mrs. Carpio again. 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 Returns today saying she has felt weak, more SOB, including orthopnea. No CP. In ER findings of note for O2 sat in 80s, diffuse rhonchi (improved with chest PT), azotemia, diffuse TW flattening on EKG and troponin 0.09 (usual negative). BNP 3973. received IVF first, then 20 lasix IV. Admitted for further management. States she feels improved on oxygen (with sats now mid-90s). Note chronic steroids, sent home on prednisone taper following stress doses during recent stay. Patient apparently developed diarrhea during her first hospitalization. C. Diff was negative. Patient now with loose stools. She denies abdominal pain to me, she denies N/V. She continues to have loose stools and is passing flatus. Abdominal XRAy shows mildly dilated small and large bowel with air throughout. Per Hospitalist the patients daughter also stated that Mrs Carpio tends to fluctuate between diarrhea and constipation normally Consults Consult date: 02/15/20 Requesting physician: Lila Donohue Review of Systems Constitutional Constitutional: Denies fatigue, Denies fever(s) and Reports weakness Eyes Eyes: Denies change in vision ENT Ears, Nose, Mouth, and Throat: Denies change in voice and Denies hoarseness Cardiovascular Cardiovascular: Denies chest pain, Denies chest pain at rest, Denies irregular heart rhythm and Reports dyspnea Respiratory Respiratory: Denies cough and Reports dyspnea Gastrointestinal Gastrointestinal: Reports as per HPI Neurologic Neurologic: Reports weakness Endocrine Endocrine: Denies fatigue [facility], [facility] Medical History Aspiration pneumonia (Acute) Atrial fibrillation (Chronic) B12 deficiency (Chronic) Cardiomyopathy (Acute) Echo 12/10/2018: EF 60-65%, up from 35% previously; does have diastolic dysfunction CHF (congestive heart failure) (Resolved) Chronic constipation (Chronic) Chronic insomnia (Chronic) 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 fracture of spine (Chronic) Depression (Inactive) Dysphagia (Acute) 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) Hx of deep venous thrombosis (Resolved) Lumbago (Resolved) Macrocytic anemia (Resolved) Malnutrition (Resolved) Myasthenia gravis (Chronic) Osteoporosis (Chronic) Peripheral neuropathic pain (Inactive) Post herpetic neuralgia (Resolved) Pulmonary arterial hypertension (Chronic) PA pressure 35-40 mm Hg Sacral decubitus ulcer, stage IV (Inactive) Surgical History (Updated 02/04/20 @ 16:00 by Shreya Parker MD) Abdominal fistula (Resolved 08/17/18) repair by Dr Elizalde AV fistula (Inactive) RUE Gastrostomy complication (Resolved 08/17/18) gastric enteric fistula repair by Dr Elizalde Gastrostomy infection (Resolved 08/10/18) Dr Elizalde, excised tissue at old g-tube site and closed g-tube tract surgically. Gastrostomy Tube Placement (Resolved) H/O wisdom tooth extraction (Acute) S/P appendectomy (Acute) Family History (Updated 02/04/20 @ 15:53 by Shreya Parker MD) Father Heart disease Mother Cancer pancreatic Social History Smoking/Tobacco Use Status: Never Alcohol Intake: never Drug use: Never Substance use type: does not use Do you feel safe at home: Yes Do you feel safe in your relationship?: Yes Additional Social history: live with son and his family Exam Const General: cooperative, comfortable and no acute distress Nutritional Appearance: thin Orientation: alert and oriented x3 HENMT Head: normocephalic and atraumatic Resp Auscultation: clear to auscultation bilaterally Cardio Rate: regular rate Rhythm: regular rhythm Heart Sounds: no gallops, no murmurs and no rubs GI Inspection: distended (mild) Palpation: soft, no hepatosplenomegaly and nontender Auscultation: normal bowel sounds Results Last Vital Signs Temp 98.2 F 02/15/20 15:19 Pulse 91 H 02/15/20 15:19 Resp 18 02/15/20 15:19 BP 99/63 L 02/15/20 15:19 Pulse Ox 97 02/15/20 15:19 Labs Result diagrams: 02/15/20 07:08 02/15/20 07:08 Labs: Laboratory Results - last 24 hr 02/14/20 02/14/20 02/15/20 12:50 12:50 07:08 WBC RBC Hgb Hct MCV MCH MCHC RDW Plt Count MPV Immature Gran % Neutrophils % Lymphocytes % Monocytes % Eosinophils % Basophils % Absolute Neutrophils Absolute Lymphocytes Absolute Monocytes Absolute Eosinophils Absolute Basophils Sodium 142 Potassium 3.1 L Chloride 102 Carbon Dioxide 35.7 H Anion Gap 4.3 BUN 49 H Creatinine 1.20 H Estimated GFR/1.73 m2 43.01 Glucose 148 H Calcium 8.6 Magnesium Troponin I 0.12 H* C-Reactive Protein 11.86 H NT-Pro-B Natriuret Pep 2899 H Procalcitonin 0.3 02/15/20 02/15/20 07:08 07:08 WBC 13.19 H RBC 3.06 L Hgb 10.0 L D Hct 31.8 L D MCV 103.9 H MCH 32.7 MCHC 31.4 L RDW 13.8 Plt Count 158 MPV 10.4 Immature Gran % 0.5 Neutrophils % 94.7 Lymphocytes % 2.4 Monocytes % 2.4 Eosinophils % 0.0 Basophils % 0.0 Absolute Neutrophils 12.49 H Absolute Lymphocytes 0.32 L Absolute Monocytes 0.32 Absolute Eosinophils 0.00 Absolute Basophils 0.00 Sodium Potassium Chloride Carbon Dioxide Anion Gap BUN Creatinine Estimated GFR/1.73 m2 Glucose Calcium Magnesium 2.2 Troponin I C-Reactive Protein NT-Pro-B Natriuret Pep Procalcitonin
--- NOTE | 2020-02-15 15:54 | W.PM.DS.N ---
Date of service: 02/15/20 Time of Service: 15:54 DS: Diagnosis Discharge Diagnosis (1) Ileus, unspecified: Status: Acute (2) CHF (congestive heart failure): Status: Resolved (3) Elevated troponin: Status: Acute (4) Myasthenia gravis: Status: Chronic (5) Atrial fibrillation: Status: Chronic Discharge Plan Disposition Patient Disposition: SNF (LEVEL 1) [facility] Condition: Good Discharge Details Chief Complaint: GenMedical Clinical Impression: Pseudomonas pneumonia, Atrial fibrillation, Weakness, Elevated troponin Reason For Visit: WEAKNESS, HYPOXIA Admit Date/Time: 02/13/20 20:22 Admit Provider: Seth Cruz Attending Provider: Seth Cruz Primary Care Provider: Maribell Choi ED Provider: Danae Gómez Hospital Course Hospital Course: This is a 84 female with h/o myasthenia gravis, 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 Returns to the ED with c/o of weakness, more SOB, including orthopnea. No chest pain. In ED findings of note for O2 sat in 80s, diffuse rhonchi (improved with chest PT), azotemia, diffuse TW flattening on EKG and troponin 0.09 (usual negative). BNP 3973. received IVF first, then 20 lasix IV. Admitted for further management. States she feels improved on oxygen (with sats now mid-90s). Her symptoms improved dramatically with diuresis. She had no fevers no oxygen requirements her cough was improving. Echocardiogram shows preserved LV function but with increased MVR. Her BNP improved and she will be discharged on oral Lasix. Her PCP should monitor kidney function and electrolytes, And consider outpatient cardiology evaluation. She is being discharged directly to her outpatient plasmapheresis appointment at [facility] as scheduled and then will be admitted to [facility] and rehab for further rehabilitation prior to returning home. She is going to be on a steroid taper and states her usual home dose is 7 mg daily. She reports that her myasthenia gravis symptoms are well controlled at this time. She was also seen by general surgery as she was experiencing ongoing diarrhea which has been a more chronic problem for her. She has been using Imodium but her symptoms have been ongoing C. difficile was negative I did get a flat and upright that did show concern for ileus. Surgery's recommendations were to stop Imodium continue lactobacillus and to consider CAT scan with IV and oral contrast should her symptoms worsen which they did not. Home Meds and New Rx's Prescriptions: New acidophilus-pectin, citrus 25 million cell -100 mg Tablet 1 cap PO AC Qty: 0 RF: 0 potassium chloride [Klor-Con M20] 20 mEq Tablet,Er Particles/Crystals 20 meq PO QAM Qty: 0 RF: 0 furosemide [Lasix] 20 mg tablet 20 mg PO QAM Qty: 30 RF: 0 Continued sennosides [senna] 8.6 mg tablet 8.6 mg PO BID PRNRF: 0 prednisone 10 MG tablet See Rx Instructions .ROUTE .COMPLEX Qty: 18 RF: 0 ergocalciferol (vitamin D2) [Vitamin D2] 50,000 UNITS capsule 50,000 units PO .QOWEEK RF: 0 cyanocobalamin (vitamin B-12) 1,000 MCG/ML solution 1 ea IM .QMONTH RF: 0 bisacodyl 10 MG suppository 1 ea MD PRN PRNRF: 0 Discontinued diphenoxylate-atropine [Lomotil] 2.5-0.025 mg Tablet 1 tab PO TID RF: 0 levofloxacin 750 mg tablet 750 mg PO DAILY Qty: 1 RF: 0 Bio-K plus 50 billion cell Capsule,Delayed Release(Dr/Ec) 1 cap PO DAILY 14 Days Qty: 14 RF: 0 No Action multivitamin [Multiple Vitamins] Tablet 1 tab PO DAILY RF: 0 hydromorphone [Dilaudid] 2 MG tablet 2 mg PO BID MDD 3mg Q3H RF: 0 lidocaine [Lidoderm] 5 % Adhesive Patch,Medicated See Rx Instructions .ROUTE .COMPLEX RF: 0 melatonin 10 mg Tablet 10 mg PO HS RF: 0 ferrous sulfate 325 MG tablet 325 mg PO DAILY Qty: 0 RF: 0 gabapentin 300 MG capsule 600 mg PO BID RF: 0 folic acid 0.8 MG capsule 0.8 mg PO DAILY RF: 0 Eliquis 2.5 MG tablet 2.5 mg PO BID RF: 0 methadone [Dolophine] 5 MG tablet 5 mg PO DAILY RF: 0 acetaminophen [Tylenol] 325 mg Tablet 650 mg PO Q4H PRN PRNQty: 30 RF: 0 Discharge Instructions Instructions: Heart Failure (DC) Additional Instructions: daily weights, notify provider if weight gain greater than 5 pounds in one week. present to [facility] for your plasmaphoresis tomorrow at 11 am as scheduled. Stand Alone Forms: Nursing Discharge Form Activity:: Activity as Tolerated Equipment/Supplies:: No Equipment Needed Diet:: Low Sodium Discharge Orders Discharge Orders: Discharge Order (Routine); Ordered 02/16/20 Ordered By: Lila Donohue Discharge Data Discharge Date/Time-TO BE ENTERED AT DEPARTURE: 02/16/20 08:44 DS: Summary Status at Discharge Functional status at discharge: uses cane/walker Overall status at discharge: patient is progressing back to baseline Mental Status: mental status grossly normal Speech and Movement: speech and movement normal Mood: congruent mood Affect: normal affect Exam Narrative Exam Narrative: General: cooperative, comfortable, no acute distress, frail appearing and ill appearing chronically Nutritional Appearance: average body habitus Orientation: alert, awake and oriented x3 HENMT Mouth: oral mucosae normal (no exudates) and tongue normal Resp Effort & Inspection: normal respiratory effort (oxygenating well on room air) and cough Auscultation: diminished lung sounds bilaterally (bases), no rhonchi and no wheezes Cardio Rhythm: abnormal rhythm (controlled afib) irregularly irregular GI Inspection: distended Palpation: soft Auscultation: abnormal bowel sounds and hypoactive bowel sounds Skin General skin exam: ecchymosis (scattered upper extremities) Lesions: lesion noted (sacral ulcer, wound care following, not seen today, see nursing/wound notes) Rashes: no rashes Neuro General: patient alert, patient awake, patient oriented x3 and moves all extremities Cognition: normal cognition Speech: speech normal Motor: muscle tone normal throughout Extrem General: normal to inspection, full ROM and edema bilateral improved since time of admission Psych Mental Status: mental status grossly normal Speech and Movement: speech and movement normal Mood: congruent mood Affect: normal affect DS: Data Vitals/I&O Vitals and I&O: Vital Signs Temperature 36.8 C 02/15/20 15:19 Temperature Source Tympanic 02/15/20 15:19 Pulse 91 H 02/15/20 15:19 Pulse Rhythm Irregular 02/15/20 08:00 Pulse 90 02/13/20 20:20 Respiratory Rate 18 02/15/20 15:19 Respiratory Effort Non-Labored 02/15/20 08:00 Respiratory Depth Normal 02/15/20 08:00 Respiratory Pattern Normal 02/15/20 08:00 Blood Pressure 99/63 L 02/15/20 15:19 Blood Pressure Mean 76 02/13/20 20:01 Blood Pressure Position Supine 02/13/20 15:47 Pulse Oximetry 97 02/15/20 15:19 Oxygen Delivery Method Nasal Cannula 02/15/20 15:19 Oxygen Flow Rate 1 02/15/20 15:19 Pain Level 3 02/15/20 15:19 Comment 02/14/20 23:30 Intake & Output 02/14/20 02/15/20 02/15/20 23:59 11:59 23:59 Intake Total 125 / 2217.333 125 / 375 250 / 375 Output Total 300 / 300 Balance 125 / 2217.333 -175 / 75 250 / 75 Weight 58.1 kg Intake: Oral 125 / 620 125 / 375 250 / 375 Output: Urine 300 / 300 Other: Urine Color Yellow Yellow Urine Appearance Clear Clear Urine Odor Normal None Comment stool with urine some stool in with urine Stool Occult Blood Negative Stool Size Small Moderate Stool Characteristics Liquid Liquid Voiding Methods Diaper Bedside Commode Incontinent Data Completed and Pending Labs on day of discharge: Labs from last 24 hours 02/15/20 02/15/20 02/15/20 07:08 07:08 07:08 WBC 13.19 H RBC 3.06 L Hgb 10.0 L D Hct 31.8 L D MCV 103.9 H MCH 32.7 MCHC 31.4 L RDW 13.8 Plt Count 158 MPV 10.4 Immature Gran % 0.5 Neutrophils % 94.7 Lymphocytes % 2.4 Monocytes % 2.4 Eosinophils % 0.0 Basophils % 0.0 Absolute Neutrophils 12.49 H Absolute Lymphocytes 0.32 L Absolute Monocytes 0.32 Absolute Eosinophils 0.00 Absolute Basophils 0.00 Sodium 142 Potassium 3.1 L Chloride 102 Carbon Dioxide 35.7 H Anion Gap 4.3 BUN 49 H Creatinine 1.20 H Estimated GFR/1.73 m2 43.01 Glucose 148 H Calcium 8.6 Magnesium 2.2 Troponin I 0.12 H* C-Reactive Protein NT-Pro-B Natriuret Pep 2899 H Procalcitonin 02/14/20 02/14/20 12:50 12:50 WBC RBC Hgb Hct MCV MCH MCHC RDW Plt Count MPV Immature Gran % Neutrophils % Lymphocytes % Monocytes % Eosinophils % Basophils % Absolute Neutrophils Absolute Lymphocytes Absolute Monocytes Absolute Eosinophils Absolute Basophils Sodium Potassium Chloride Carbon Dioxide Anion Gap BUN Creatinine Estimated GFR/1.73 m2 Glucose Calcium Magnesium Troponin I C-Reactive Protein 11.86 H NT-Pro-B Natriuret Pep Procalcitonin 0.3 PFSH Medical History Aspiration pneumonia (Acute) Atrial fibrillation (Chronic) B12 deficiency (Chronic) Cardiomyopathy (Acute) Echo 12/10/2018: EF 60-65%, up from 35% previously; does have diastolic dysfunction CHF (congestive heart failure) (Resolved) Chronic constipation (Chronic) Chronic insomnia (Chronic) 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 fracture of spine (Chronic) Depression (Inactive) Dysphagia (Acute) 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) Hx of deep venous thrombosis (Resolved) Lumbago (Resolved) Macrocytic anemia (Resolved) Malnutrition (Resolved) Myasthenia gravis (Chronic) Osteoporosis (Chronic) Peripheral neuropathic pain (Inactive) Post herpetic neuralgia (Resolved) Pulmonary arterial hypertension (Chronic) PA pressure 35-40 mm Hg Sacral decubitus ulcer, stage IV (Inactive) Surgical History (Updated 02/04/20 @ 16:00 by Shreya Parker MD) Abdominal fistula (Resolved 08/17/18) repair by Dr Elizalde AV fistula (Inactive) RUE Gastrostomy complication (Resolved 08/17/18) gastric enteric fistula repair by Dr Elizalde Gastrostomy infection (Resolved 08/10/18) Dr Elizalde, excised tissue at old g-tube site and closed g-tube tract surgically. Gastrostomy Tube Placement (Resolved) H/O wisdom tooth extraction (Acute) S/P appendectomy (Acute) Family History (Updated 02/04/20 @ 15:53 by Shreya Parker MD) Father Heart disease Mother Cancer pancreatic Social History Smoking/Tobacco Use Status: Never Alcohol Intake: never Drug use: Never Substance use type: does not use Do you feel safe at home: Yes Do you feel safe in your relationship?: Yes Additional Social history: live with son and his family
[2020-02-15] MEDS: HYDROmorphone 2 MG TAB PO (19:33)
[2020-02-15] MEDS: Gabapentin 300 MG CAP 600 MG PO (19:33)
[2020-02-15] MEDS: Patch Removal 1 EACH TP (20:18)
[2020-02-15] MEDS: Melatonin 3 MG TAB 9 MG PO (21:54)
[2020-02-16 03:25] VITALS: BP 113/71; PULSE 96; RESP 19; TEMP 36.8; O2SAT 96
[2020-02-16] MEDS: Lactobacillus Acidophilus CAP 1 CAP PO (06:50)
[2020-02-16] MEDS: methylPREDNISolone SUCC 40 MG VIAL IVP (06:50)
[2020-02-16] MEDS: Albuterol/Ipratropium 3 ML UPD VIAL UPD (06:50)
[2020-02-16] MEDS: Normal Saline Flush 10 ML SYR IVP (06:50)
[2020-02-16 07:23] VITALS: BP 99/64; PULSE 94; RESP 18; TEMP 35.9; O2SAT 95
[2020-02-16] MEDS: HYDROmorphone 2 MG TAB PO (08:23)
[2020-02-16] MEDS: Ferrous Sulfate 325 MG TAB PO (08:24)
[2020-02-16] MEDS: Folic Acid 1 MG TAB PO (08:24)
[2020-02-16] MEDS: Apixaban 2.5 MG TAB PO (08:24)
[2020-02-16] MEDS: Multivitamin TAB 1 TAB PO (08:25)
[2020-02-16] MEDS: Methadone 5 MG TAB PO (08:25)
[2020-02-16] MEDS: guaiFENesin 600 MG TABCR PO (08:25)
[2020-02-16] MEDS: Gabapentin 300 MG CAP PO (08:25)
[2020-02-16] MEDS: Potassium Chloride 20 MEQ TABCR PO (08:26)
[2020-02-16] MEDS: Lidocaine 5% Patch TD (08:26)
--- NOTE | 2020-02-17 07:50 | PTDS_ITS ---
Supervising Provider: Dirk Albarran PT Diagnosis: weakness, hypoxia Diagnosis: weakness, hypoxia Weeks Elapsed: week(s) and 0 day(s) Patient Location: Med Surg Referring Provider: Date of Service: February 17, 2020 7:50 Inpatient Physical Therapy Discharge Summary Visit Reason: Weakness and hypoxia Treatment dates: Initial evaluation 02/14/2020 and one subsequent treatment 02/15/2020 Patient Profile/Admitting Diagnosis: Patient is an 84-year-old female admitted to [facility] 02/13/2020. She had just been discharged home from [facility] a day prior. Comes back to the hospital complaining of increased weakness and difficulty with breathing. He was initially admitted to [facility] due to septic shock exacerbated by acute adrenal insufficiency as well as precipitated by right upper lobe and lower lobe pneumonia with history of Pseudomonas and aspiration Pseudomonas in the past. Patient was discharged to [facility]. She was going to [facility] for her plasmaphoresis treatment and then she will return to [facility] and be admitted to H&R. Tanja verbalized being pleased with the plan. Her ybhhycon-en-ooa Werner was updated with the details and will provide transport via private vehicle. THIS DOCUMENT SERVES A SUMMARY OF CARE. NO PT SERVICES WERE PROVIDED ON THIS DATE. 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) Hx of deep venous thrombosis (Resolved) Lumbago (Resolved) Macrocytic anemia (Resolved) Malnutrition (Resolved) Myasthenia gravis (Chronic) Osteoporosis (Chronic) Peripheral neuropathic pain (Inactive) Post herpetic neuralgia (Resolved) Pulmonary arterial hypertension (Acute) PA pressure 35-40 mm Hg Sacral decubitus ulcer, stage IV (Inactive) Surgical History (Updated 02/04/20 @ 16:00 by Shreya Parker MD) Abdominal fistula (Resolved 08/17/18) repair by Dr Elizalde AV fistula (Inactive) RUE Gastrostomy complication (Resolved 08/17/18) gastric enteric fistula repair by Dr Elizalde Gastrostomy infection (Resolved 08/10/18) Dr Elizalde, excised tissue at old g-tube site and closed g-tube tract surgically. Gastrostomy Tube Placement (Resolved) H/O wisdom tooth extraction (Acute) S/P appendectomy (Acute) History/Home Situation: Lives with her daughter and in a single level 12 dwelling with 1 step into the home with railing Current Functional Limitations: Ambulation, functional mobilities, self ADLs Equipment Owned/DME: Front wheel walker Subjective: None obtained, as patient was discharged 02/16/2020. Objective: ROM: Right Upper Extremity: Within functional limits Left Upper Extremity: Within functional limits Right Lower Extremity: Within functional limits Left Lower Extremity: Within functional limits Strength: Right Upper Extremity: 4-/5 flexion and abduction right shoulder, 4/5 bicep tricep, good pocket closer strength Left Upper Extremity: 4-/5 flexion and abduction left shoulder, 4/5 bicep tricep, good pocket closer strength Right Lower Extremity: 4-/5 hip flexion, quads and hamstrings, 4-/5 abduction tested in sitting. 4+/5 adduction. Plantarflexion and dorsiflexion 4/5 Left Lower Extremity: 4-/5 hip flexion, quads and hamstrings, 4-/5 abduction tested in sitting. 4+/5 adduction. Plantar flexion dorsiflexion 4/5 BED MOBILITY/TRANSFERS Sit-stand: Supervision Stand-sit: Supervision GAIT Assistive Device: FWW Weight bearing: FWB Assist: supervision Distance: 15'x4 with sitting breaks following each 15 foot excursion. Deviation: Decreased michelle. Forward flexed trunk position with moderate reliance on UE support to FWW. ADLs: Patient seated in chair/recliner with legs elevated at start of PT. She performed sit to stand transfer with supervision to a front wheeled walker 4 times. VITALS: Patient resting at 91% SaO2 on 2 L supplemental oxygen. Post-ambulation, she is at 88 % by ear probe. After second repetition of walking, she's 90% at start and desaturates to 85%. This does rebound quickly with pursed lip breathing and proper head on neck posturing to avoid excessively flexed posturing due to her myesthesia gravis. Gait: Patient ambulates 10 feet X2 with FW W, WBAT, contact-guard x1 on 2 L supplemental oxygen via nasal cannula. Balance: Static Sitting: Good Dynamic Sitting: Good Static Standing: Fair Dynamic Standing: Fair Treatment: Gait and transfer training as noted above, followed by initiation of exercise program consisting of quad sets, long arc quads and ankle pumps. Patient was provided with handouts of a home exercise program during her last stay 2 days ago. Assessment: Patient is a 84 year old female referred to physical therapy services with the diagnosis of weakness and difficulty breathing due to pneumonia and adrenal insufficiency. She participated in one treatment session on 02/15/2020 and was then discharged early am on 02/16/20 so she could attend her appointment at [facility] for her plasmaphoresis treatment and then she will return to [facility] and be admitted to H&R. She did demonstrate improved functional mobility and safety. At last session, her oxygen levels did de- saturate with 2L supplemental via nasal cannula. Her O2 saturation level did recover following some pursed lipped breathing. Goals: Goals X1 week 1. Supine-Sit: Contact-guard x1 - met 2. Sit-Supine: Contact-guard x1 - met 3. Sit-Stand: Contact-guard x1 to front wheeled walker - met 4. Stand-Sit: Contact-guard x1 from front wheeled walker - met 5. Bed-Chair: Contact-guard x1 with front wheeled walker - met 6. Chair-Bed: Contact-guard x1 with front wheeled walker - met 7. Gait: 50 feet with contact-guard x1 with front wheeled walker - not met 8. Balance improved standing static and dynamic balance- not met Plan of Care/Treatment Plan: DISCHARGE RECOMMENDATIONS: Discharge to SNF. TREATMENT CODE/TIME: None Dirk Albarran PT, DPT [facility] PT Notes Visit Reasons: WEAKNESS, HYPOXIA
== END 2020-02-16 08:44 | disposition skilled nursing facility (03) | DRG 390 ==
LOC: ER 20:32 → MS 21:11
PROVIDERS: Internal Medicine; Nurse Practitioner Acute Care; Admitting Provider General Practice; Emergency Provider Physician Assistant; PCP Family Medicine; Visit Provider General Practice
DX: K56.7 Ileus, unspecified (principal); I50.9 Heart failure, unspecified; R79.89 Other specified abnormal findings of blood chemistry; G70.00 Myasthenia gravis without (acute) exacerbation; I48.91 Unspecified atrial fibrillation; R19.7 Diarrhea, unspecified; G89.29 Other chronic pain; Z79.891 Long term (current) use of opiate analgesic; R94.31 Abnormal electrocardiogram [ECG] [EKG]; I08.1 Rheumatic disorders of both mitral and tricuspid valves; E87.6 Hypokalemia; Z79.01 Long term (current) use of anticoagulants
CPT/HCPCS: 36415; 80048; 80053; 84145; 93005; 93306; 96361; 96365; 96366; 97110; 97162; 99221; 99222; 99233; 99239; 99252; 99285; 71045; 74019; 81003; 83735; 83880; 84484; 85025; 86140; 93010; 94640; 94667; 94668; J1940; J1941; J3480; J3490; J7620

== ENCOUNTER 2020-02-24 15:31 | Outpatient (REF) | payer MEDICARE, BC, SELFPAY ==
[2020-02-24 15:59] LABS: Abs Immature Grans 0.02 k/cumm (0.0-0.09); HCT 33.5 % (36.0-46.0); HGB 10.4 g/dL (12.0-15.5); Immature Grans % 0.2 %; Lymphocytes % 4.2; Mean Corpuscular Hemoglobin 32.9 pg (27.0-33.0); Mean Platelet Volume 10.4 fL (8.0-11.0); Monocytes % 3.1; Neutrophils % 92.5; Platelet Count 233 x1000/uL (130-400); RBC 3.16 m/cumm (4.00-5.20); RBC Distribution Width 14.8 % (11.7-14.6); White Blood Cell Count 12.75 k/cumm (4.4-10.8)
[2020-02-24 16:04] LABS: Absolute Lymphocyte Count 0.54 k/cumm (1.2-3.4); Absolute Neutrophil Count 11.79 k/cumm (1.2-6.7)
[2020-02-24 16:10] LABS: Anion Gap 4.5 mmol/L (3-11); BUN 27 mg/dL (7-18); CO2 33.5 mmol/L (21.0-32.0); CREATININE 1.38 mg/dL (0.55-1.02); Chloride 100 mmol/L (98-107); Glucose 206 mg/dL (74-106); Sodium 138 mmol/L (136-145)
== END 2020-02-24 15:51 ==
LOC: LBN 15:31
PROVIDERS: PCP Family Medicine; Visit Provider Nurse Practitioner Adult Health
DX: E53.8 Deficiency of other specified B group vitamins (principal); J15.1 Pneumonia due to Pseudomonas; R79.89 Other specified abnormal findings of blood chemistry; K56.7 Ileus, unspecified
CPT/HCPCS: 80048; 85025

== ENCOUNTER 2020-02-27 16:12 | Outpatient (REF) | payer SELFPAY ==
[2020-02-29 20:04] LABS: SARS-CoV-2 RNA Undetected (Undetected); SARS-CoV-2 Specimen Source Nasopharynx
== END 2020-02-27 16:32 ==
LOC: LBN 16:12
PROVIDERS: PCP Family Medicine; Visit Provider Nurse Practitioner Adult Health
DX: R05 Cough (principal); R09.89 Other specified symptoms and signs involving the circulatory and respiratory systems; Z11.59 Encounter for screening for other viral diseases
CPT/HCPCS: 87077; U0003; 87070; 87186; 87205

== ENCOUNTER 2020-03-05 16:51 | Outpatient (REF) | payer MEDICARE, BC, SELFPAY ==
[2020-03-05 18:54] LABS: Anion Gap 9.5 mmol/L (3-11); BUN 20 mg/dL (7-18); CO2 29.5 mmol/L (21.0-32.0); Calcium 9.2 mg/dL (8.5-10.1); Chloride 99 mmol/L (98-107); Estimated GFR 43.01 (mL/min/1.73m2); Glucose 151 mg/dL (74-106); Potassium 4.7 mmol/L (3.5-5.1); Sodium 138 mmol/L (136-145)
[2020-03-05 18:55] LABS: Abs Immature Grans 0.04 k/cumm (0.0-0.09); Absolute Basophil Count 0.01 k/cumm (0.0-0.2); Absolute Eosinophil Count 0.02 k/cumm (0.0-0.7); Absolute Lymphocyte Count 0.35 k/cumm (1.2-3.4); Absolute Monocyte Count 0.41 k/cumm (0.11-0.7); Absolute Neutrophil Count 9.64 k/cumm (1.2-6.7); Basophils % 0.1; Eosinophils % 0.2; HCT 32.5 % (36.0-46.0); HGB 9.9 g/dL (12.0-15.5); Immature Grans % 0.4 %; Lymphocytes % 3.3; Mean Corp. HGB Concentration 30.5 g/dL (32.0-36.0); Mean Corpuscular Hemoglobin 31.9 pg (27.0-33.0); Mean Corpuscular Volume 104.8 fL (80-95); Mean Platelet Volume 10.6 fL (8.0-11.0); Monocytes % 3.9; Neutrophils % 92.1; Platelet Count 326 x1000/uL (130-400); RBC Distribution Width 14.6 % (11.7-14.6); White Blood Cell Count 10.47 k/cumm (4.4-10.8)
== END 2020-03-05 17:11 ==
LOC: LBN 16:51
PROVIDERS: PCP Family Medicine; Visit Provider Nurse Practitioner Adult Health
DX: J15.1 Pneumonia due to Pseudomonas (principal); R79.89 Other specified abnormal findings of blood chemistry; I50.9 Heart failure, unspecified; Z79.01 Long term (current) use of anticoagulants
CPT/HCPCS: 80048; 85025

== ENCOUNTER 2020-04-09 20:05 | Outpatient (REF) | payer MEDICARE, BC, SELFPAY ==
[2020-04-09 21:55] LABS: Anion Gap 4.8 mmol/L (3-11); BUN 27 mg/dL (7-18); CO2 34.2 mmol/L (21.0-32.0); Calcium 9.3 mg/dL (8.5-10.1); Chloride 99 mmol/L (98-107); Estimated GFR 30.86 (mL/min/1.73m2); Glucose 97 mg/dL (74-106); Potassium 4.7 mmol/L (3.5-5.1); Sodium 138 mmol/L (136-145)
== END 2020-04-09 20:25 ==
LOC: NCHCN 20:05
PROVIDERS: PCP Family Medicine; Visit Provider Family Medicine
DX: I50.9 Heart failure, unspecified (principal)
CPT/HCPCS: 80048

== ENCOUNTER 2020-05-07 01:52 | Outpatient (RCR) | payer MEDICARE, BC, SELFPAY ==
[2020-05-07] MEDS: Normal Saline Flush 10 ML SYR 20 ML IVP (09:45)
== END 2020-05-22 23:59 | disposition home or self-care (01) ==
LOC: INF 01:52
PROVIDERS: PCP Family Medicine; Visit Provider Internal Medicine
DX: G70.00 Myasthenia gravis without (acute) exacerbation (principal)
CPT/HCPCS: 96365; J1300

== ENCOUNTER 2020-06-18 01:37 | Outpatient (RCR) | payer MEDICARE, BC, SELFPAY ==
[2020-05-24] MEDS: Normal Saline Flush 10 ML SYR IVP ×2 (09:28→09:58)
[2020-06-04] MEDS: Normal Saline Flush 10 ML SYR IVP (09:09)
[2020-06-18] MEDS: Normal Saline Flush 10 ML SYR IVP (10:00)
== END 2020-06-22 23:59 | disposition home or self-care (01) ==
LOC: INF 01:37
PROVIDERS: PCP Family Medicine; Visit Provider Internal Medicine
DX: G70.00 Myasthenia gravis without (acute) exacerbation (principal)
CPT/HCPCS: 96365; J1300

== ENCOUNTER 2020-07-16 00:54 | Outpatient (RCR) | payer MEDICARE, BC, SELFPAY ==
[2020-07-03] MEDS: Normal Saline Flush 10 ML SYR IVP (13:53)
[2020-07-16] MEDS: Normal Saline Flush 10 ML SYR IVP ×2 (09:04→09:32)
== END 2020-07-23 23:59 | disposition home or self-care (01) ==
LOC: INF 00:54
PROVIDERS: PCP Family Medicine; Visit Provider Internal Medicine
DX: G70.00 Myasthenia gravis without (acute) exacerbation (principal)
CPT/HCPCS: 96365; J1300

== ENCOUNTER 2020-08-13 01:22 | Outpatient (RCR) | payer MEDICARE, BC, SELFPAY ==
[2020-07-31] MEDS: Normal Saline Flush 10 ML SYR IVP (10:22)
[2020-08-13] MEDS: Normal Saline Flush 10 ML SYR IVP (08:59)
== END 2020-08-22 23:59 | disposition home or self-care (01) ==
LOC: INF 01:22
PROVIDERS: PCP Family Medicine; Visit Provider Internal Medicine
DX: G70.00 Myasthenia gravis without (acute) exacerbation (principal)
CPT/HCPCS: 96365; J1300

== ENCOUNTER 2020-09-10 09:00 | Outpatient (RCR) | payer MEDICARE, BC, SELFPAY ==
[2020-08-27] MEDS: Normal Saline Flush 10 ML SYR IVP (09:41)
[2020-09-10] MEDS: Normal Saline Flush 10 ML SYR IVP (08:57)
== END 2020-09-22 23:59 | disposition home or self-care (01) ==
LOC: INF 09:00
PROVIDERS: PCP Family Medicine; Visit Provider Internal Medicine
DX: G70.00 Myasthenia gravis without (acute) exacerbation (principal)
CPT/HCPCS: 96365; J1300

== ENCOUNTER 2020-09-18 13:26 | Emergency (ER) | payer MEDICARE, BC, SELFPAY ==
[2020-09-18] VITALS (11 sets, daily range): BP systolic 99–107; BP diastolic 48–54; PULSE 61–93; RESP 16; TEMP 36; O2SAT 93–94
--- NOTE | 2020-09-18 13:30 | DI.RAD_ITS ---
EXAM: XR CHEST 2V PA LATERAL CLINICAL HISTORY: Dizziness, R/O PNA TECHNIQUE: COMPARISON: CR CHEST 2 VIEWS PA,LAT from 08/05/2017 CR,XR XR PORTABLE CHEST AP from 02/04/2020 CR,XR XR PORTABLE CHEST AP from 02/10/2020 CR,XR XR PORTABLE CHEST AP from 02/13/2020 FINDINGS: AP and lateral chest. There is mild cardiomegaly. Thoracic aorta is tortuous. There is a pectus ex cavatum deformity. There changes of COPD and pulmonary scarring. Comparison with multiple previous chest films show res olution of previously noted right upper lobe consolidation. No convincing acute infiltrate on today' s examination. No pleural effusion seen the lateral view. IMPRESSION: COPD and fibrotic changes, no evidence of acute infiltrate. Multiple old thoracic vertebral compress ion fractures noted. RADIATION DOSE DELIVERED: Total DLP
--- NOTE | 2020-09-18 13:30 | RT.EKG_ITS ---
APPROVED REPORT Exam: Resting ECG Patient Location: E HR:83 bpm ECG Measurements Heart Rate 83 AXIS NC [id number] P [id number] QRSd 90 QRS 0 QT 408 T -9 QTc 486 Conclusion Atrial fibrillation...? atrial activity Ventricular premature complex...V complex w/ short R-R interval Inferior infarct, old...Q >35mS, II III aVF Anteroseptal infarct, age indeterminate...Q >35mS, T neg, V1-V2 no STEMI, non-diagnostic EKG
--- NOTE | 2020-09-18 13:30 | DI.RAD_ITS ---
EXAM: XR FOOT RT COMPLETE CLINICAL HISTORY: Pain, R/O Fracture TECHNIQUE: COMPARISON: No exams were available for comparison FINDINGS: Three views were obtained. The bones moderately demineralized in a patchy. There are degenerative c hanges all the joints. There is no evidence of acute fracture or dislocation. IMPRESSION: RADIATION DOSE DELIVERED: Total DLP
--- NOTE | 2020-09-18 13:44 | ED.GENADUL_ITS ---
Discharge Plan Disposition Patient Disposition: HOME Condition: Stable Discharge Details Clinical Impression: Weakness, Dizziness Primary Care Provider: Maribell Choi ED Provider: Flako Wade Home Meds and New Rx's Prescriptions: Continued sennosides [senna] 8.6 mg tablet 8.6 mg PO BID PRNRF: 0 multivitamin [Multiple Vitamins] Tablet 1 tab PO DAILY RF: 0 hydromorphone [Dilaudid] 2 MG tablet 2 mg PO BID MDD 3mg Q3H RF: 0 lidocaine [Lidoderm] 5 % Adhesive Patch,Medicated See Rx Instructions .ROUTE .COMPLEX RF: 0 melatonin 10 mg Tablet 10 mg PO HS RF: 0 ferrous sulfate 325 MG tablet 325 mg PO DAILY Qty: 0 RF: 0 prednisone 10 MG tablet See Rx Instructions .ROUTE .COMPLEX Qty: 18 RF: 0 acidophilus-pectin, citrus 25 million cell -100 mg Tablet 1 cap PO AC Qty: 0 RF: 0 potassium chloride [Klor-Con M20] 20 mEq Tablet,Er Particles/Crystals 20 meq PO QAM Qty: 0 RF: 0 furosemide [Lasix] 20 mg tablet 40 mg PO QAM RF: 0 gabapentin 300 MG capsule 600 mg PO BID RF: 0 folic acid 0.8 MG capsule 0.8 mg PO DAILY RF: 0 Eliquis 2.5 MG tablet 2.5 mg PO BID RF: 0 ergocalciferol (vitamin D2) [Vitamin D2] 50,000 UNITS capsule 50,000 units PO .QOWEEK RF: 0 cyanocobalamin (vitamin B-12) 1,000 MCG/ML solution 1 ea IM .QMONTH RF: 0 bisacodyl 10 MG suppository 1 ea [place] PRN PRNRF: 0 methadone [Dolophine] 5 MG tablet 5 mg PO BID RF: 0 acetaminophen [Tylenol] 325 mg Tablet 650 mg PO Q4H PRN PRNQty: 30 RF: 0 Discharge Instructions Instructions: Weakness (ED), Dizziness (ED) Additional Instructions: At this time work-up in the ER does not reveal any obvious emergent process. We discussed disposition. We discussed that unfortunately we cannot admit here because we are at capacity however we could transfer you to another facility for admission and observation and potential further work-up of your symptoms. You have declined this and I do believe this to be reasonable as you have capacity to make your own decisions. With that being said I strongly recommend you watch for new or worsening symptoms and return immediately to the ER. Otherwise contact your primary care provider tomorrow for prompt outpatient reevaluation. Discharge Data Discharge Date/Time-TO BE ENTERED AT DEPARTURE: 09/18/20 18:55 Medical Decision Making <Oneyda Devi - Last Filed: 09/19/20 09:01> 84-year-old female presents via EMS with dizziness which began sometime last nig ht. Patient states that she was going to the bathroom this morning became extremely dizzy sat herself onto the floor. She normally uses a walker at home she did not fall. She has a history of myasthenia gravis and gets biweekly [employer] infusions. She is alert and oriented x4 upon arrival, has no focal neuro deficits, administrative assistant data entry are equal bilaterally she moves all extremities. She denies any dizziness at this time. She did state that she ate breakfast this morning but was very little. She denies any chest pain, abdominal pain no nausea vomiting diarrhea. She also complains of right foot pain no known injuries. She reported to the nursing staff that she is concerned she may have pneumonia again. Work-up ordered including CBC, CMP, EKG, serial troponins, chest x-ray and foot x-ray. Will give normal saline 250 an hour. 1351: Spoke with Patients [id number] regarding plan of care they will call back in a couple hours. CBC is largely within normal limits, CMP shows potassium 3.3, anion gap 2.2, BUN 29, creatinine 1.44 GFR 34.85 which is largely at patient's baseline. Initial troponin is less than 0.05. CR,XR XR PORTABLE CHEST AP from 02/13/2020 FINDINGS: AP and lateral chest. There is mild cardiomegaly. Thoracic aorta is tortuous. There is a pectus excavatum deformity. There changes of COPD and pulmonary scarring. Comparison with multiple previous chest films show resolution of previously noted right upper lobe consolidation. No convincing acute infiltrate on today's examination. No pleural effusion seen the lateral view. EXAM: XR FOOT RT COMPLETE CLINICAL HISTORY: Pain, R/O Fracture TECHNIQUE: COMPARISON: No exams were available for comparison FINDINGS: Three views were obtained. The bones moderately demineralized in a patchy. There are degenerative changes all the joints. There is no evidence of acute fracture or dislocation. At this time care is to be handed off to oncoming provider MARILEE Correa pending repeat troponin and disposition. Discussed patient case in details with him and he verbalizes understanding. At the time of this dictation patient was hemodynamically stable and in no acute distress. <MARILEE Copeland - Last Filed: 09/18/20 18:26> This is an 84-year-old female who presents for dizziness who was signed out to me by my colleague ZENON Devi. Please see her note for HPI and physical. At this point her work-up has been negative and we are now awaiting a repeat troponin. Given she is on Eliquis and had a subjective point of dizziness, I did add on a head CT and I did add on a urinalysis. Patient is currently resting comfortably in room to be, laying supine on the stretcher. She appears well, nontoxic and is currently asymptomatic. She does report that the orange juice with potassium did upset her stomach but that feels better. Head normocephalic, moist mucous membranes, patient able to speak in full sentences, no respiratory distress. Abdomen is soft and nontender. There is no obvious facial asymmetry, moves all extremities equally. She is able to ambulate without assistance. CT imaging of the head read by radiology as no acute intracranial pathology. Urinalysis is yellow, clear, small blood negative nitrate, negative leuk esterase, 0-2 red blood cells, 3-5 white blood cells, moderate bacteria, culture pending. Repeat troponin is less than 0.05. I discussed work-up with patient and treatment options. She was ambulatory to the restroom and reports that she felt slightly weak, denied dizziness like the room was spinning, or ataxia. She initially question whether or not she needs to be hospitalized. I explained to her that we could certainly look into hospitalization however our facility is at capacity and we are unable to admit her to our facility. Instead I could offer her transfer to another facility. She feels as though although she does not feel perfect she does not feel ill enough to be transferred and would prefer to go home. She states that she lives with family, she has a wheelchair at home, and that they should be able to help her. I did reach out to her family, specifically spoke with her daughter in law who believes that they are perfectly comfortable taking her home in current condition. I did encourage them to return to the ER for new or worsening symptoms otherwise to reach out to their primary care provider tomorrow for prompt outpatient reevaluation. Patient was able to get out of her wheelchair without assistance and ambulate steadily. Upon discharge she appears to be neurologically intact. HPI <Oneyda Devi - Last Filed: 09/19/20 09:01> General Mode of arrival: EMS . Date/Time Provider Initiated Documentation: 09/18/20 13:32 . Limitations to Documentation: no limitations . Information obtained by: patient and EMS . HPI Narrative: 84-year-old female presents via EMS with dizziness which began sometime last night. Patient states that she was going to the bathroom this morning became extremely dizzy sat herself onto the floor. She normally uses a walker at home she did not fall. She has a history of myasthenia gravis and gets biweekly [employer] infusions. She is alert and oriented x4 upon arrival, has no focal neuro deficits, administrative assistant data entry are equal bilaterally she moves all extremities. She denies any dizziness at this time. She did state that she ate breakfast this morning but was very little. She denies any chest pain, abdominal pain no nausea vomiting diarrhea. She also complains of right foot pain no known injuries. She reported to the nursing staff that she is concerned she may have pneumonia again. Related Data Home Medications Medication Instructions Recorded Confirmed Eliquis 2.5 mg PO BID 07/08/17 09/18/20 folic acid 0.8 mg PO DAILY 07/08/17 09/18/20 gabapentin 600 mg PO BID 07/08/17 09/18/20 cyanocobalamin (vitamin B-12) 1 ea IM .QMONTH 07/27/17 09/18/20 ergocalciferol (vitamin D2) 50,000 units PO .QOWEEK 07/27/17 09/18/20 [Vitamin D2] bisacodyl 1 ea NJ PRN PRN 09/26/17 09/18/20 sennosides 8.6 mg tablet 8.6 mg PO BID PRN 08/02/18 09/18/20 methadone [Dolophine] 5 mg PO BID 08/06/18 09/18/20 acetaminophen [Tylenol] 650 mg PO Q4H PRN PRN #30 tab 08/10/18 09/18/20 multivitamin [Multiple Vitamins] 1 tab PO DAILY 08/16/18 09/18/20 hydromorphone [Dilaudid] 2 mg PO BID MDD 3mg Q3H 02/04/20 09/18/20 lidocaine [Lidoderm] See Rx Instructions .ROUTE .COMPLEX 02/04/20 09/18/20 melatonin 10 mg PO HS 02/04/20 09/18/20 ferrous sulfate 325 mg PO DAILY #0 tab 02/12/20 09/18/20 prednisone See Rx Instructions .ROUTE 02/12/20 09/18/20 .COMPLEX #18 tab acidophilus-pectin, citrus 1 cap PO AC #0 tab 02/15/20 09/18/20 potassium chloride [Klor-Con M20] 20 meq PO QAM #0 tab 02/15/20 09/18/20 furosemide [Lasix] 40 mg PO QAM 09/18/20 09/18/20 Previous Rx's Medication Instructions Recorded acetaminophen [Tylenol] 650 mg PO Q4H PRN PRN #30 tab 08/10/18 ferrous sulfate 325 mg PO DAILY #0 tab 02/12/20 prednisone See Rx Instructions .ROUTE 02/12/20 .COMPLEX #18 tab acidophilus-pectin, citrus 1 cap PO AC #0 tab 02/15/20 potassium chloride [Klor-Con M20] 20 meq PO QAM #0 tab 02/15/20 Allergies Allergy/AdvReac Type Severity Reaction Status Date / Time Sulfa (Sulfonamide Allergy Hives Verified 09/18/20 13:40 Antibiotics) General Stated Complaint: Dizzy/Sync KIERSTEN: 3 Review of Systems <Oneyda Devi - Last Filed: 09/19/20 09:01> Narrative: Constitutional: Negative for weight loss, alert and oriented, well groomed, normal body habitus, appears comfortable. HEENT: Denies trauma, headaches, blurry vision, nasal discharge, sore throat, trouble swallowing. Chest: Denies chest pain, palpitations, irregular rhythm, hypertension. Respiratory: Denies Shortness of breath, cough, hemoptysis. GI: Denies abdominal pain, nausea, vomiting, diarrhea, constipation. : Denies dysuria, hematuria, flank pain, rectal bleeding. Neuro: Denies blurry vision, syncope, headache or facial numbness. Positive dizziness and weakness. Hematologic: Denies easy bruising, intolerance to heat or cold, hair loss. 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 Gastrostomy Tube Placement H/O wisdom tooth extraction S/P appendectomy Family History Father Heart disease Mother Cancer pancreatic Social History Smoking/Tobacco Use Status: Never Smoking risk assessment performed?: Yes Alcohol Intake: current Alcohol Intake frequency: a few times a week Alcohol type: hard liquor Drug use: Never Substance use type: does not use Do you feel safe at home: Yes Do you feel safe in your relationship?: Yes Additional Social history: live with son and his family Exam <Oneyda Devi - Last Filed: 09/19/20 09:01> Narrative Exam Narrative: Constitutional: Alert and oriented x3. Appears stated age. Normal body habitus. Head: Normocephalic, no trauma. Eyes: Pupils PERRLA, Red reflex noted, EOM's intact. Eyelids symmetrical without lesions, discharge, or swelling. ENT: Bilateral TM's WNL, External ear normal to inspection, no mastoid TTP, swelling, or erythema, Nasal turbinates WNL, no nasal discharge. Normal dentition, Posterior pharynx WNL, no exudate. Chest: RRR, Normal S1, S2, distal pulses intact. Resp: Lungs clear to auscultation bilaterally, no wheezes, rales, or rhonchi. Musculoskeletal: Normal gait, 5/5 strength to all four extremities. Skin: No suspicious rashes or lesions. Capillary refill less than 2 sec. Neurologic: Cranial nerves II-XII intact. Alert and oriented x 3. DTR's intact. Hematologic/Lymphatic: No ecchymosis, no lymphadenopathy. Course <Oneyda Devi - Last Filed: 09/19/20 09:01> Vital Signs Vital signs: Vital Signs Temperature 36 C L 09/18/20 13:32 Pulse 66 09/18/20 13:32 Respiratory Rate 16 09/18/20 13:32 Blood Pressure 99/54 L 09/18/20 13:32 Pulse Oximetry 94 09/18/20 13:32 Temperature 36 C L 09/18/20 13:32 Temperature Source Skin 09/18/20 13:32 Pulse 66 09/18/20 13:32 Respiratory Rate 16 09/18/20 13:32 Respiratory Effort Non-Labored 09/18/20 13:32 Blood Pressure 99/54 L 09/18/20 13:32 Blood Pressure Position Supine 09/18/20 13:32 Pulse Oximetry 94 09/18/20 13:32 Oxygen Delivery Method Room Air 09/18/20 13:32 Oxygen Flow Rate 0 09/18/20 13:32 Pain Level 5 09/18/20 13:32 Sign Out <Oneyda Devi - Last Filed: 09/19/20 09:01> Sign Out Data: Sign Out Comment: Pending Repeat Troponin at 1650 and discharge home Last updated by Oneyda Devi at 09/18/20 15:52
[2020-09-18 13:58] LABS: Abs Immature Grans 0.03 10^3/uL (0.0-0.06); Absolute Basophil Count 0.03 10^3/uL (0.0-0.2); Absolute Eosinophil Count 0.29 10^3/uL (0.0-0.7); Absolute Lymphocyte Count 1.67 10^3/uL (1.2-3.4); Absolute Neutrophil Count 6.11 10^3/uL (1.2-6.7); Basophils % 0.3; Eosinophils % 3.2; HCT 43.6 % (36.0-46.0); HGB 13.9 g/dL (11.2-15.7); Immature Grans % 0.3; Lymphocytes % 18.7; MCH 33.4 pg (27.0-33.0); MCHC 31.9 % (32.0-36.0); MCV 104.8 fL (80-95); MPV 10.2 fL (8.0-11.0); Neutrophils % 68.5; Nucleated RBC 0 %; Platelet Count 154 10^3/uL (130-400); RBC 4.16 10^6/uL (3.93-5.22); RDW 12.9 % (11.7-14.6); RDW-SD 50.2 fL; WBC 8.93 10^3/uL (4.4-10.8)
[2020-09-18 14:15] LABS: ALT 13 U/L (14-59); AST 16 U/L (15-37); Albumin 3.8 g/dL (3.4-5.0); Alkaline Phosphatase 63 U/L (46-116); Anion Gap 2.2 mmol/L (3-11); BUN 29 mg/dL (7-18); Bilirubin, Total 0.6 mg/dL (0.2-1.0); CO2 37.8 mmol/L (21.0-32.0); CREATININE 1.44 mg/dL (0.55-1.02); Calcium 10.1 mg/dL (8.5-10.1); Chloride 99 mmol/L (98-107); Estimated GFR 34.85 (mL/min/1.73m2); Glucose 98 mg/dL (74-106); Magnesium 2.2 mg/dL (1.8-2.4); Potassium 3.3 mmol/L (3.5-5.1); Sodium 139 mmol/L (136-145); Total Protein 6.9 g/dL (6.4-8.2)
[2020-09-18 14:16] LABS: Troponin I < 0.05 ng/mL (<0.06)
[2020-09-18] MEDS: Normal Saline 250 ML IV (15:00)
[2020-09-18] MEDS: Normal Saline Flush 10 ML SYR IVP (15:32)
[2020-09-18] MEDS: Potassium Chloride Liquid 20 MEQ PKT 40 MEQ PO (15:42)
--- NOTE | 2020-09-18 16:15 | DI.CT_ITS ---
EXAM: CT HEAD WO CLINICAL HISTORY: dizzy, on eliquis TECHNIQUE: COMPARISON: No exams were available for comparison FINDINGS: Noncontrast cranial CT was performed. There is predominant opacification of the sphenoid sinus with suggestion of mild wall thickening of the sphenoid sinus, probable chronic sinusitis. There is also predominant opacification with high density material maxillary antrum also consistent chronic sinusit is. There are few opacified ethmoid air cells on the left as well. Mastoid air cells are clear. There is severe generalized cerebral atrophy. There are patchy areas of decreased attenuation in per iventricular white matter bilaterally consistent with microvascular ischemic change. There are small bilateral lacunar infarcts. There is no evidence of acute intracranial hemorrhage, mass effect, or midline shift. The orbital st ructures appear intact. 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 No evidence of acute intracranial hemorrhage. RADIATION DOSE DELIVERED: 689.91mGy.cm Total DLP
[2020-09-18 16:43] LABS: Bilirubin Negative (Negative); Blood Small (Negative); Clarity Clear (Clear); Glucose Negative (Negative); Ketones Negative (Negative); Leukocyte Esterase Negative (Negative); Nitrite Negative (Negative); Urobilinogen 0.2 EU/dL (Up TO 0.2)
--- NOTE | 2020-09-18 16:49 | DI.VRAD_ITS ---
PROCEDURE INFORMATION: Exam: CT Head Without Contrast Exam date and time: 09/18/2020 4:36 PM Age: 84 years old Clinical indication: Other: Dizzy on eliquis TECHNIQUE: Imaging protocol: Computed tomography of the head without contrast. Radiation optimization: All CT scans at this facility use at least one of these dose optimization techniques: automated exposure control; mA and/or kV adjustment per patient size (includes targeted exams where dose is matched to clinical indication); or iterative reconstruction. COMPARISON: No relevant prior studies available. FINDINGS: Brain: Mild nonspecific hypodensities of the periventricular and deep subcortical white matter, most likely secondary to chronic small vessel ischemic change. No intracranial hemorrhage or extra-axial fluid collection. No evidence of mass effect or midline shift. Bartlett-white matter differentiation is normal. Cerebral ventricles: Mild prominence of the ventricles and sulci, most likely attributed to parenchymal volume loss. Bones/joints: No acute osseus lesion or fracture. Paranasal sinuses: Complete opacification of the left maxillary, left ethmoid, and right sphenoid sinuses. Mastoid air cells: Unremarkable. Soft tissues: Unremarkable. IMPRESSION: 1. No acute intracranial pathology. 2. Generalized paranasal sinusitis. 3. Other chronic findings, as above. Dictated and Authenticated by: Holger Miller MD. Ordering:NESSA Arriola MD
[2020-09-18 16:57] LABS: Bacteria Moderate HPF (Negative); C & S Indicated? Yes; Casts Negative LPF (Negative); Crystals Few Amorphous HPF (Negative); Epithelial Cells Few HPF (Negative); Mucus Negative (Negative); Other Cells Few Transitional (Negative); RBC 0-2 HPF (0-2)
[2020-09-18 17:07] LABS: Troponin I < 0.05 ng/mL (<0.06)
== END 2020-09-18 18:55 | disposition home or self-care (01) ==
PROVIDERS: Registered Nurse Emergency; Emergency Provider Physician Assistant; PCP Family Medicine
DX: R53.1 Weakness (principal); R42 Dizziness and giddiness; I50.9 Heart failure, unspecified; G70.00 Myasthenia gravis without (acute) exacerbation; J44.9 Chronic obstructive pulmonary disease, unspecified; Z79.01 Long term (current) use of anticoagulants
CPT/HCPCS: 80053; 93005; 96360; 99285; 70450; 71046; 73630; 81003; 81015; 83735; 84484; 85025; 87086; 93010; 99284

== ENCOUNTER 2020-09-19 12:45 | Inpatient (IN) | payer MEDICARE, BC, SELFPAY ==
[2020-09-19] VITALS (35 sets, daily range): BP systolic 101–150; BP diastolic 50–87; PULSE 69–106; RESP 11–28; TEMP 36.5–37.3; O2SAT 86–100
--- NOTE | 2020-09-19 13:12 | ED.GENADUL_ITS ---
Discharge Plan Disposition Patient Disposition: [facility] INPATIENT Condition: Stable Discharge Details Clinical Impression: Weakness, Exertional dyspnea Primary Care Provider: Maribell Choi ED Provider: Oneyda Devi Home Meds and New Rx's Prescriptions: No Action sennosides [senna] 8.6 mg tablet 8.6 mg PO BID PRNRF: 0 multivitamin [Multiple Vitamins] Tablet 1 tab PO DAILY RF: 0 hydromorphone [Dilaudid] 2 MG tablet 2 mg PO Q4H PRN MDD 6 PRNRF: 0 melatonin 10 mg Tablet 10 mg PO HS RF: 0 ferrous sulfate 325 MG tablet 325 mg PO DAILY Qty: 0 RF: 0 acidophilus-pectin, citrus 25 million cell -100 mg Tablet 1 cap PO AC Qty: 0 RF: 0 furosemide [Lasix] 20 mg tablet 40 mg PO QAM RF: 0 gabapentin 300 MG capsule 300 mg PO BID RF: 0 folic acid 0.8 MG capsule 1 mg PO DAILY RF: 0 Eliquis 2.5 MG tablet 2.5 mg PO BID RF: 0 ergocalciferol (vitamin D2) [Vitamin D2] 50,000 UNITS capsule 50,000 units PO .QOWEEK RF: 0 cyanocobalamin (vitamin B-12) 1,000 MCG/ML solution 1 ea IM .QMONTH RF: 0 bisacodyl 10 MG suppository 1 ea AR PRN PRNRF: 0 methadone [Dolophine] 5 MG tablet 5 mg PO BID RF: 0 acetaminophen [Tylenol] 325 mg Tablet 650 mg PO Q4H PRN PRNQty: 30 RF: 0 lidocaine 5 % adhesive patch,medicated 1 patch topical DAILY PRNRF: 0 prednisone 10 MG tablet 5 mg PO DAILY RF: 0 Medical Decision Making 84-year-old female presents to the ER for the second day in a row due to generalized weakness, reporting not feeling safe being home alone. She does live with her son and her [id number] and has home health that comes twice a week. She states that last night after being discharged from the ER she went to bed, did not want to bother anyone to get up to the bathroom so she wet her bed. She stated that she did not want to get up. She states that she is afraid that she was going to collapse again as she did the day before. She reports not taking any of her medications today. She has no specific complaint. She does have a healing decubitus ulcer noted to her coccyx approximately stage III. She does have some dark tarry stools but she is taking iron supplements. Hemoccult stool was done which is negative at this time. She has no complaints of chest pain, back pain, nausea vomiting diarrhea. Related Data 1300: Cafeteria called and requested soup for patient. 1319: Care management paged. Spoke with Alysia Tran and discussed patient case and details, she is aware of patient and states she will call and speak with family and home health regarding plan of care for patient. In the meantime, I will do some basic labs to rule out any change from yesterday and give him IV fluids and see the patient. 1346: Patient requesting prednisone and pain medication, will prescribe her daily dose of prednisone and hydromorphone. 1403: Spoke with patients son who wanted an update. He is requesting us to transfer patient to [facility], because that is where her doctor who is following her Myasthenia Gravis is. 1415: Informed by staff training and development manager that patient oxygen saturation dropped to 83% on room air when patient falls asleep. Patient placed on 2 L nasal cannula. 1431: Upon patient reevaluation she states that she feels better and feels that if she is to go home. She states that after the prednisone she already feels much better. She states that she normally takes her own medications at home. RT at to perform a muscle inspiratory pressure. RN to get patient up to road test patient. Patient's Neurologist is Dr. Patel with [facility]. 1449: RT states NIF is WNL, she report's it as Neg 20. Protest performed with walker patient was able to walk with minimal assistance approximately 10 feet and back to bed she began complaining of increased weakness, increased shortness of breath. O2 sat dropped to 85% on room air with ambulation. She does appear to be having increased work of breathing. At this time, [facility] phone service and computer service is out, I have been informed by our staff, they are not accepting non-emergent transfers at this time. Will attempt admission here for weakness, and unexplained exertional hypoxia. 1508: Spoke with Dr. Bell who is on for hospitalist at this time he does agree to accept patient for admission for weakness and exertional hypoxia. Call made to patient's son Frankie and informed him of plan of care, verbalized understanding. Patient given chicken noodle soup and she is feeding herself without difficulty. HPI General Mode of arrival: EMS . Date/Time Provider Initiated Documentation: 09/19/20 13:00 . Limitations to Documentation: no limitations . Information obtained by: patient . HPI Narrative: 84-year-old female presents to the ER for the second day in a row due to generalized weakness, reporting not feeling safe being home alone. She does live with her son and her [id number] and has home health that comes twice a week. She states that last night after being discharged from the ER she went to bed, did not want to bother anyone to get up to the bathroom so she wet her bed. She stated that she did not want to get up. She states that she is afraid that she was going to collapse again as she did the day before. She reports not taking any of her medications today. She has no specific complaint. She does have a healing decubitus ulcer noted to her coccyx approximately stage III. She does have some dark tarry stools but she is taking iron supplements. Hemoccult stool was done which is negative at this time. She has no complaints of chest pain, back pain, nausea vomiting diarrhea. Related Data Home Medications Medication Instructions Recorded Confirmed Eliquis 2.5 mg PO BID 07/08/17 09/19/20 folic acid 1 mg PO DAILY 07/08/17 09/19/20 gabapentin 300 mg PO BID 07/08/17 09/19/20 cyanocobalamin (vitamin B-12) 1 ea IM .QMONTH 07/27/17 09/19/20 ergocalciferol (vitamin D2) 50,000 units PO .QOWEEK 07/27/17 09/19/20 [Vitamin D2] bisacodyl 1 ea AR PRN PRN 09/26/17 09/19/20 sennosides 8.6 mg tablet 8.6 mg PO BID PRN 08/02/18 09/19/20 methadone [Dolophine] 5 mg PO BID 08/06/18 09/19/20 acetaminophen [Tylenol] 650 mg PO Q4H PRN PRN #30 tab 08/10/18 09/19/20 multivitamin [Multiple Vitamins] 1 tab PO DAILY 08/16/18 09/19/20 hydromorphone [Dilaudid] 2 mg PO Q4H PRN PRN MDD 6 02/04/20 09/19/20 melatonin 10 mg PO HS 02/04/20 09/19/20 ferrous sulfate 325 mg PO DAILY #0 tab 02/12/20 09/19/20 acidophilus-pectin, citrus 1 cap PO AC #0 tab 02/15/20 09/19/20 furosemide [Lasix] 40 mg PO QAM 09/18/20 09/19/20 lidocaine 1 patch TOPICAL DAILY PRN 09/19/20 09/19/20 prednisone 5 mg PO DAILY 09/19/20 09/19/20 Previous Rx's Medication Instructions Recorded acetaminophen [Tylenol] 650 mg PO Q4H PRN PRN #30 tab 08/10/18 ferrous sulfate 325 mg PO DAILY #0 tab 02/12/20 acidophilus-pectin, citrus 1 cap PO AC #0 tab 02/15/20 Allergies Allergy/AdvReac Type Severity Reaction Status Date / Time FAHAD Inhibitors Allergy Unverified 09/19/20 13:13 albuterol Allergy Unverified 09/19/20 13:13 Beta-Blockers Allergy Unverified 09/19/20 13:13 (Beta-Adrenergic Bloc Sulfa (Sulfonamide Allergy Hives Verified 09/18/20 13:40 Antibiotics) sulfamethoxazole Allergy Unverified 09/19/20 13:13 [From Bactrim] trimethoprim [From Bactrim] Allergy Unverified 09/19/20 13:13 General Stated Complaint: GenMedical KIERSTEN: 3 Review of Systems Narrative: Constitutional: Negative for weight loss, alert and oriented, well groomed, thin body habitus, appears comfortable. HEENT: Denies trauma, headaches, blurry vision, nasal discharge, sore throat, trouble swallowing. Chest: Denies chest pain, palpitations, irregular rhythm, hypertension. Respiratory: Denies Shortness of breath, cough, hemoptysis. GI: Denies abdominal pain, nausea, vomiting, diarrhea, constipation. : Denies dysuria, hematuria, flank pain, rectal bleeding. Neuro: Denies blurry vision, syncope, headache or facial numbness. Hematologic: Denies easy bruising, intolerance to heat or cold, hair loss. 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 Gastrostomy Tube Placement H/O wisdom tooth extraction S/P appendectomy Family History Father Heart disease Mother Cancer pancreatic Social History Smoking/Tobacco Use Status: Never Smoking risk assessment performed?: Yes Alcohol Intake: current Alcohol Intake frequency: a few times a week Alcohol type: hard liquor Drug use: Never Substance use type: does not use Do you feel safe at home: Yes Do you feel safe in your relationship?: Yes Additional Social history: live with son and his family Exam Narrative Exam Narrative: Constitutional: Alert and oriented x3. Appears stated age. Normal body habitus. Dry mucous membranes. Head: Normocephalic, no trauma. Eyes: Pupils PERRLA, Red reflex noted, EOM's intact. Eyelids symmetrical without lesions, discharge, or swelling. ENT: Bilateral TM's WNL, External ear normal to inspection, no mastoid TTP, swelling, or erythema, Nasal turbinates WNL, no nasal discharge. Normal dentition, Posterior pharynx WNL, no exudate. Chest: RRR, Normal S1, S2, distal pulses intact. Resp: Lungs clear to auscultation bilaterally, no wheezes, rales, or rhonchi. Musculoskeletal: Normal gait, 5/5 strength to all four extremities. Skin: Has a stage III decubitus ulcer noted to her coccyx with surrounding erythema, capillary refill less than 2 sec. Neurologic: Cranial nerves II-XII intact. Alert and oriented x 3. DTR's intact. Hematologic/Lymphatic: No ecchymosis, no lymphadenopathy. Course Vital Signs Vital signs: Vital Signs Temperature 36.5 C 09/19/20 12:45 Pulse 83 09/19/20 12:45 Blood Pressure 131/73 09/19/20 12:45 Pulse Oximetry 97 09/19/20 12:45 Temperature 36.5 C 09/19/20 12:45 Pulse 83 09/19/20 12:45 Respiratory Effort 09/19/20 12:56 Blood Pressure 131/73 09/19/20 12:45 Blood Pressure Position Sitting 09/19/20 12:45 Pulse Oximetry 97 09/19/20 12:45 Oxygen Delivery Method Room Air 09/19/20 12:45 Oxygen Flow Rate 0 09/19/20 12:45 Pain Level 5 09/19/20 12:45
[2020-09-19 13:49] LABS: Abs Immature Grans 0.02 10^3/uL (0.0-0.06); Absolute Basophil Count 0.04 10^3/uL (0.0-0.2); Absolute Eosinophil Count 0.13 10^3/uL (0.0-0.7); Absolute Lymphocyte Count 1.39 10^3/uL (1.2-3.4); Absolute Monocyte Count 0.68 10^3/uL (0.1-0.8); Absolute Neutrophil Count 5.75 10^3/uL (1.2-6.7); Basophils % 0.5; Eosinophils % 1.6; HCT 41.8 % (36.0-46.0); HGB 13.7 g/dL (11.2-15.7); Immature Grans % 0.2; Lymphocytes % 17.4; MCH 33.9 pg (27.0-33.0); MCHC 32.8 % (32.0-36.0); MCV 103.5 fL (80-95); MPV 10.2 fL (8.0-11.0); Monocytes % 8.5; Neutrophils % 71.8; Nucleated RBC 0 %; Platelet Count 137 10^3/uL (130-400); RBC 4.04 10^6/uL (3.93-5.22); RDW 12.9 % (11.7-14.6); RDW-SD 49.4 fL; WBC 8.01 10^3/uL (4.4-10.8)
[2020-09-19] MEDS: HYDROmorphone 2 MG TAB PO (13:56)
[2020-09-19] MEDS: predniSONE 5 MG TAB PO (13:57)
[2020-09-19] MEDS: Normal Saline 250 ML 500 ML IV (13:59)
[2020-09-19 14:03] LABS: ALT 13 U/L (14-59); AST 20 U/L (15-37); Albumin 3.6 g/dL (3.4-5.0); Alkaline Phosphatase 69 U/L (46-116); Anion Gap 5.7 mmol/L (3-11); BUN 26 mg/dL (7-18); CO2 32.3 mmol/L (21.0-32.0); CREATININE 1.33 mg/dL (0.55-1.02); Calcium 9.9 mg/dL (8.5-10.1); Chloride 102 mmol/L (98-107); Glucose 91 mg/dL (74-106); Potassium 3.6 mmol/L (3.5-5.1); Sodium 140 mmol/L (136-145); Total Protein 6.7 g/dL (6.4-8.2)
--- NOTE | 2020-09-19 15:19 | HPE_ITS ---
Date of service: 09/19/20 Time of Service: 15:19 Assessment and Plan Assessment and plan (1) Weakness: Status: Acute Assessment and plan: Most likely related to malnutrition / underweight and deconditioned. PT to evaluate Encourage po intake. Nutrition eval. Marinol 2.5mg prior to breakfast and dinner; titrate if necessary. (2) Myasthenia gravis: Status: Chronic Assessment and plan: Cont daily prednisone. Cont plasmaphoresis as scheduled at [facility] MIF/MEF was normal at -20. (3) Eating disorder: Status: Acute Assessment and plan: Long standing. Nutrition consulted. Marinol. (4) COPD (chronic obstructive pulmonary disease): Status: Chronic Assessment and plan: No previous dx but evidence noted on CXR; hyperinflation of lungs. This could account for her exertional hypoxia. Also, pectus excavatum noted on CXR and this could account for some obstructive component History of Present Illness History of Present Illness Chief Complaint: weakness Narrative: This is an 84 yo female with a h/o mysthenia gravis, CHF, h/o DVT, afib, pulmonary hyp ertension, eating disorder. She presented to the ED for the second time in 2 days with c/o generalized weakness. She lives with her son and [id number] and has home health twice/week. Her w/u in the ED the day prior to this admission was unremarkable; including lab, urinalysis / urine cx, CT head, CXR. She endorsed that last PM she wet her bed. She did not want to disturb anyone in order to get assistance. She was afraid to ambulate alone because she had felt weak and had to let her self down to the floor the day before. She did not take her medications the am of this admission. Of note she does have a coccygeal ulcer that is being managed by wound care nurse. Also of note, she does have an appt at [facility] for this coming Thursday for plasma phoresis. She was going to be discharged to home from the ED but after she ambulated appx 10 ft. her O2 saturation on RA dropped to 85%. She was noted to have some increased work of breathing at the time. No CP, palpitations. She was admitted for further evaluation. 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 Gastrostomy Tube Placement H/O wisdom tooth extraction S/P appendectomy Family History Father Heart disease Mother Cancer pancreatic Social History Smoking/Tobacco Use Status: Never Smoking risk assessment performed?: Yes Alcohol Intake: current Alcohol Intake frequency: a few times a week Alcohol type: hard liquor Drug use: Never Substance use type: does not use Do you feel safe at home: Yes Do you feel safe in your relationship?: Yes Additional Social history: live with son and his family Meds Home Medications and Allergies Home Medications Medication Instructions Recorded Confirmed Type Eliquis 2.5 mg PO BID 07/08/17 09/19/20 History folic acid 1 mg PO DAILY 07/08/17 09/19/20 History gabapentin 300 mg PO BID 07/08/17 09/19/20 History cyanocobalamin (vitamin B-12) 1 ea IM .QMONTH 07/27/17 09/19/20 History ergocalciferol (vitamin D2) 50,000 units PO .QOWEEK 07/27/17 09/19/20 History [Vitamin D2] bisacodyl 1 ea SC PRN PRN 09/26/17 09/19/20 History sennosides 8.6 mg tablet 8.6 mg PO BID PRN 08/02/18 09/19/20 History methadone [Dolophine] 5 mg PO BID 08/06/18 09/19/20 History acetaminophen [Tylenol] 650 mg PO Q4H PRN PRN #30 tab 08/10/18 09/19/20 Rx multivitamin [Multiple Vitamins] 1 tab PO DAILY 08/16/18 09/19/20 History hydromorphone [Dilaudid] 2 mg PO Q4H PRN PRN MDD 6 02/04/20 09/19/20 History melatonin 10 mg PO HS 02/04/20 09/19/20 History ferrous sulfate 325 mg PO DAILY #0 tab 02/12/20 09/19/20 Rx acidophilus-pectin, citrus 1 cap PO AC #0 tab 02/15/20 09/19/20 Rx furosemide [Lasix] 40 mg PO QAM 09/18/20 09/19/20 History lidocaine 1 patch TOPICAL DAILY PRN 09/19/20 09/19/20 History prednisone 5 mg PO DAILY 09/19/20 09/19/20 History Allergies Allergy/AdvReac Type Severity Reaction Status Date / Time FAHAD Inhibitors Allergy Unverified 09/19/20 13:13 albuterol Allergy Unverified 09/19/20 13:13 Beta-Blockers Allergy Unverified 09/19/20 13:13 (Beta-Adrenergic Bloc Sulfa (Sulfonamide Allergy Hives Verified 09/18/20 13:40 Antibiotics) sulfamethoxazole Allergy Unverified 09/19/20 13:13 [From Bactrim] trimethoprim [From Bactrim] Allergy Unverified 09/19/20 13:13 Exam Const General: cooperative and no acute distress Nutritional Appearance: cachectic Orientation: alert and oriented x3 HENMT Head: normocephalic and atraumatic Neck Neck: other (Chronic tightness of R neck musculature) Resp Effort & Inspection: normal respiratory effort Auscultation: clear to auscultation bilaterally and diminished lung sounds GI Palpation: soft and nontender Auscultation: normal bowel sounds Skin Wounds: wounds noted (Coccyx ulcer with dressing in place) Extrem General: no pedal edema and no calf tenderness Results Labs Result diagrams: 09/19/20 12:40 09/19/20 12:40 Labs: Laboratory Results - last 24 hr 09/19/20 09/19/20 12:40 12:40 WBC 8.01 RBC 4.04 Hgb 13.7 Hct 41.8 MCV 103.5 H MCH 33.9 H MCHC 32.8 RDW 12.9 Plt Count 137 MPV 10.2 Immature Gran % 0.2 Neutrophils % 71.8 Lymphocytes % 17.4 Monocytes % 8.5 Eosinophils % 1.6 Basophils % 0.5 Nucleated RBC % 0 Absolute Neutrophils 5.75 Absolute Lymphocytes 1.39 Absolute Monocytes 0.68 Absolute Eosinophils 0.13 Absolute Basophils 0.04 Sodium 140 Potassium 3.6 Chloride 102 Carbon Dioxide 32.3 H Anion Gap 5.7 BUN 26 H Creatinine 1.33 H Estimated GFR/1.73 m2 38.20 Glucose 91 Calcium 9.9 Total Bilirubin 1.0 AST 20 ALT 13 L Alkaline Phosphatase 69 Total Protein 6.7 Albumin 3.6 Last Vital Signs Temp 36.5 C 09/19/20 12:45 Pulse 83 09/19/20 12:45 BP 131/73 09/19/20 12:45 Pulse Ox 97 09/19/20 12:45 COVID-19 Screening Have you,or household,traveled outside [place] in last 14 days?: No Had IN PERSON contact w/suspected or confirmed C-19 person: No
[2020-09-19 15:39] LABS: Iron 22 ug/dL (50-170); Total Iron Binding Capacity 216 ug/dL (250-450); Transferrin Sat 10 % (15-50)
[2020-09-19 15:44] LABS: TSH (W/Ref FT4) 0.79 uIU/mL (0.36-3.74)
--- NOTE | 2020-09-19 16:27 | PDOC.ERCMIN ---
- If Service Date Differs Date of service: 09/19/20 Time of Service: 16:27 Care Management Initial Assess REASON FOR HOSPITALIZATION:: Weakness, hypoxia PAST MEDICAL HISTORY/PAST SURGICAL HISTORY:: Medical History: Aspiration pneumonia, Atrial fibrillation, B12 deficiency,. Cardiomyopathy - Echo 12/10/2018: EF 60-65%, up from 35% previously; does have diastolic dysfunction; CHF (congestive heart failure), Chronic constipation, Chronic insomnia, Chronic pain - on methadone therapy,. 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 Macrocytic anemia, Malnutrition, Myasthenia gravis, Osteoporosis, Peripheral neuropathic pain, Post herpetic neuralgia, Pulmonary arterial hypertension - PA pressure 35-40 mm Hg, and Sacral decubitus ulcer, stage IV. Surgical History: Abdominal fistula, AV fistula - RUE, Gastrostomy complication - gastric enteric fistula repair by Dr Elizalde, Gastrostomy infection - Dr Elizalde, excised tissue at old g-tube site and closed g-tube tract surgically, Gastrostomy Tube Placement, H/O wisdom tooth extraction, and S/P appendectomy. PREVIOUS FUNCTIONAL STATUS/SOCIAL/FAMILY SUPPORTS:: Tanja lives in [place] with her son, Frankie, and [id number], Werner. Tanja has three additional children: one son in [place], one in [place], and a daughter in [place]. 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 She now occupies her days with quilting, reading, and attending online [employer] services. Tanja reports she is independent with her medications and her family help her with bathing, dressing, and meal preparation. She does not drive and relies on [facility] and family for transportation to appointments. CURRENT FUNCTIONAL STATUS:: Tanja is lying in bed when CM comes to meet with her. She is pleasant and easily engages in conversation, but appears frail and tired and has difficulty keeping her eyes open. She reports feeling extremely cold and is thankful when CM provides her with a warm blanket. CM will continue to follow. ADVANCE DIRECTIVES:: On file; her son, Frankie Carpio, is health care agent. Has patient been provided with info about the portal/API?: No Did the patient sign up for the portal?: No CODE STATUS:: DNR/DNI INSURANCE COVERAGE / FINANCIAL ISSUES:: BCBS and Medicare. CURRENT HOME/COMMUNITY SERVICES/EQUIPMENT:: Tanja has Home Health nursing services and she sees a neurologist at [facility] [place]. She utilizes a walker to ambulate at home and has a shower seat. PRIMARY CARE PHYSICIAN:: Maribell Choi MD. POTENTIAL DISCHARGE NEEDS:: Follow up appointment with PCP. PATIENT/FAMILY EDUCATION NEEDS:: Discharge instructions, limitations, and follow up plan of care, including Ask Me Three and self management. ANTICIPATED BARRIERS TO DISCHARGE:: No anticipated barriers at this time. TRANSPORTATION:: Via private vehicle with family. PLAN:: Anticipate Tanja will discharge home with a resumption of Home Health nursing when medically cleared by provider. She will follow up with her PCP and discharge plan of care as directed. Tanja will be driven home via private vehicle with family when ready. CM will continue to support patient and discharge planning needs.
[2020-09-19] MEDS: IRON SUCROSE COMPLEX 300 MG in Normal Saline 250 ML 167 MG IVPB (17:28)
[2020-09-19] MEDS: Normal Saline Flush 10 ML SYR IVP (17:28)
[2020-09-19] MEDS: Lactobacillus Acidophilus CAP 1 CAP PO (17:49)
--- NOTE | 2020-09-19 19:12 | WOUNDCONS ---
- If Service Date Differs Date of service: 09/19/20 Time of Service: 19:00 Wound Initial Evaluation Narrative: Wound consult placed for wound on coccyx. Patient states this is a wound she has had for 5 years. Patient states she is seen by providers at the wound care clinic in [place], [place]. Patient states she uses triad cream on the wound and calmoseptine on the surrounding tissue. Will attempt to get treatment plan from Wound care center in [place], [place] tomorrow 09/20/20. Patient laying on left side while pictures taken. - Wound coccyx Wound Type: Pressure Ulcer Pressure Ulcer Stage: IV Wound General Appearance: Healing Well Wound Bed Greatest Portion: Dusky Red Wound Length: 3.2 cm Wound Width: 3.5 cm Wound Depth: 0.2 cm Wound Drainage Amount: Minimal (right area of wound has open area 2.2 cm x 2 cm x 0.2 cm.) Wound Drainage Description: Serous Wound Topical Solution/Irrigant: Saline Irrigant Wound Debridement Method: Gauze Wound Debridement Result: Healthy Tissue Revealed Wound edges are loosely adhered on top of wound. wound measured at 3.2 cm x 3.5 cm x 0.2 cm, however there is epithelial tissue noted on left portion of wound bed and the opena brenda was measured at 2.2 cmx 2 cm x 0.2 cm. Wound bed with macerated tissue noted. area surrounding wound reddened and blanchable. Pictures takenw luis alberto patient laying on left side.
[2020-09-19] MEDS: Methadone 5 MG TAB PO (19:26)
[2020-09-19] MEDS: Apixaban 2.5 MG TAB PO (19:26)
[2020-09-19] MEDS: Gabapentin 300 MG CAP PO (19:26)
[2020-09-20 03:20] VITALS: BP 112/70; PULSE 85; RESP 17; TEMP 37.5; O2SAT 94
[2020-09-20 07:55] VITALS: BP 115/69; PULSE 88; RESP 17; TEMP 37.2; O2SAT 96
[2020-09-20] MEDS: Normal Saline Flush 10 ML SYR IVP (08:12)
[2020-09-20] MEDS: Furosemide 20 MG TAB 40 MG PO (08:13)
[2020-09-20] MEDS: predniSONE 5 MG TAB PO (08:13)
[2020-09-20] MEDS: Gabapentin 300 MG CAP PO (08:13)
[2020-09-20] MEDS: Acetaminophen 325 MG TAB 650 MG PO (08:13)
[2020-09-20] MEDS: Multivitamin TAB 1 TAB PO (08:14)
[2020-09-20] MEDS: Apixaban 2.5 MG TAB PO (08:14)
[2020-09-20] MEDS: Methadone 5 MG TAB PO (08:14)
[2020-09-20] MEDS: Lactobacillus Acidophilus CAP 1 CAP PO ×2 (08:16→10:35)
[2020-09-20] MEDS: Folic Acid 1 MG TAB PO (08:16)
--- NOTE | 2020-09-20 08:55 | PT.INIE ---
Date of service: 09/20/20 Time of Service: 08:55 PT Notes Visit Reasons: HYPOXIA AND WEAKNESS Inpatient Physical Therapy Evaluation Date: 09/20/2020 Referring Doctor: Pete Tran MD PT Orders: PT CONSULT: Eval/treat Precautions: Fall. Standard. Stage III coccygeal ulcer. Activity as tolerated. Patient Profile/Admitting Diagnosis: Patient is an 84-year-old female a who presented to the ED on 09/19/2020 with generalized weakness, breath, and difficulty ambulating at home. 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) Hx of deep venous thrombosis (Resolved) Lumbago (Resolved) Macrocytic anemia (Resolved) Malnutrition (Resolved) Myasthenia gravis (Chronic) Osteoporosis (Chronic) Peripheral neuropathic pain (Inactive) Post herpetic neuralgia (Resolved) Pulmonary arterial hypertension (Acute) PA pressure 35-40 mm Hg Sacral decubitus ulcer, stage IV (Inactive) Surgical History (Updated 02/04/20 @ 16:00 by Shreya Parker MD) Abdominal fistula (Resolved 08/17/18) repair by Dr Elizalde AV fistula (Inactive) RUE Gastrostomy complication (Resolved 08/17/18) gastric enteric fistula repair by Dr Elizalde Gastrostomy infection (Resolved 08/10/18) Dr Elizalde, excised tissue at old g-tube site and closed g-tube tract surgically. Gastrostomy Tube Placement (Resolved) H/O wisdom tooth extraction (Acute) S/P appendectomy (Acute) History/Home Situation: Lives with her daughter and in a two-story home with 3 steps to enter through the kitchen bilateral rails. She lives on the first floor of the home. She needs to walk about 15 feet to the bathroom that is outside her bedroom and about 25 feet to the dining area. Dependent with the use of a 4 wheeled walker for all mobility ADL performance. Equipment Owned/DME: Front wheel walker Subjective: Tanja states that she is feeling much better than at time of arrival at [facility]. Is concerned about her scheduled plasmapheresis tomorrow at [facility]. She is wondering if she is able to go to that appointment as she does not want to miss it. Objective: General Observation: Sitting on bedside chair. Telemetry monitoring in place. IV in the left cubital fossa. She has a port in the right upper extremity for plasmaapheresis treatments biweekly at [facility]. Mental Status: Alert and oriented x3 Pain: None reported Vital Signs: Desaturated to 86% on room air during ambulation activity. Resaturated back up to 97% on 1 L of oxygen per minute. ROM: Trunk extension: -10 degrees in standing Right Upper Extremity: Within functional limits Left Upper Extremity: Within functional limits Right Lower Extremity: Within functional limits Left Lower Extremity: Within functional limits Strength: Right Upper Extremity: 4-/5 flexion and abduction right shoulder, 4/5 bicep tricep, good copy technician strength Left Upper Extremity: 4-/5 flexion and abduction left shoulder, 4/5 bicep tricep, good copy technician strength Right Lower Extremity: 4-/5 hip flexion, quads and hamstrings, 4-/5 abduction tested in sitting. 4+/5 adduction. Plantarflexion and dorsiflexion 4/5 Left Lower Extremity: 4-/5 hip flexion, quads and hamstrings, 4-/5 abduction tested in sitting. 4+/5 adduction. Plantar flexion dorsiflexion 4/5 Sensation: Reports intact sensation light touch bilateral lower extremities Bed Mobility/Transfers: Rolling standby assist Supine to sit standby assist Sit to supine standby assist Sit to stand contact-guard assist Stand to sit contact-guard assist Bed to chair contact-guard assist Chair to bed contact-guard assist Gait: 100 feet using 4 wheeled walker with full weightbearing on bilateral lower extremities requiring only contact-guard assist with severe thoracic kyphosis from dowagers hump with sclerosis seen. Desaturated to 86% on room air. Decreased michelle. Decreased trunk extension throughout. Balance: Static Sitting: Normal Dynamic Sitting: Normal Static Standing: Fair Dynamic Standing: Fair Special Tests: Mobility Limitations Standardized Measure [facility] 6 clicks Basic Mobility Inpatient Short Form: Raw Score: 20 CMS Score: 36 % Informed Consent/Education: Patient instructed in purpose of PT consult and plan of care. Assessment: Tanja demonstrates need for the use of a front wheeled walker for all mobility ADL performance, balance impairment due to chronic severe thoracic kyphosis from multiple sclerosis, generalized weakness, and increased risk for falls due to admitting diagnoses. Patient presents with clinical signs and symptoms consistent with current/admitting diagnoses that have resulted to mobility limitations, gait instability, generalized weakness, and impairment of motor control as demonstrated by the following impairment level findings: 1. Decreased strength to B LE major muscle groups 2. Impaired standing balance 3. Impaired activity tolerance 4. Chronic orders home from multiple sclerosis Impairments are contributing to the following functional limitations: 1. Dependent bed mobility skills 2. Increased dependence with transfers 3. Inability to safely ambulate without assistive device and physical assistance 4. Increase completion time for mobility ADL performance 5. Increased fall risk 6. Inability to negotiate steps alone safely Patient is assessed as a [id number] high complexity based on the following: History: Tanja is an 84-year-old female with impairment level findings, functional limitations, and medical history as listed above Examination:Demonstrable impairment in strength, balance, and range of motion with underlying impairments and functional limitations as documented above Presentation: Evolving Decision Makin high Goals: Goals X1 week 1. Supine-Sit independent 2. Sit-Supine independent 3. Sit-Stand independent 4. Stand-Sit independent 5. Bed-Chair independent 6. Chair-Bed independent 7. Supervision gait on level surface with use of least restrictive device for at least 300 feet without report of pain nor dyspnea 8. Supervision stair negotiation while holding onto bilateral rails for at least 10 steps without report of pain nor dyspnea 9. Independent with home exercise program 10. Good static and dynamic standing balance/tolerance Plan of Care/Treatment Plan: 1-2x/day, 7 days/week x 1 week. Plan of care has been reviewed with the [employer] providing the service under Physical Therapy direction. Initiate Physical Therapy intervention for strengthening, bed mobility, transfers, gait, stairs, balance training, use of assistive device. DISCHARGE RECOMMENDATIONS: Patient will benefit from home health PT services in order to progress mobility level using least restrictive assistive ambulatory device, assess home safety, identify additional equipment needs, and establish a functional maintenance program that will increase ability of patient to remain at home. TREATMENT CODE/TIME: 74212 x 30 minutes, 9753 0 x 14 minutes beginning at 8:55 AM. Thank you for the opportunity to participate in the care of this patient. Anamika Miner PT, DPT, CLT [facility] [place], [place]
[2020-09-20] MEDS: Dronabinol 2.5 MG CAP PO (10:34)
[2020-09-20 11:30] VITALS: BP 115/67; PULSE 83; RESP 17; TEMP 36.9; O2SAT 95
[2020-09-20 12:25] VITALS: PULSE 97; RESP 18; RESP 8; O2SAT 98
[2020-09-20] MEDS: Albuterol/Ipratropium 3 ML UPD VIAL UPD (12:25)
[2020-09-20 12:30] VITALS: PULSE 99; RESP 18; RESP 8; O2SAT 100
--- NOTE | 2020-09-20 13:11 | W.NUTCONSULT ---
Date of service: 09/20/20 Time of Service: 13:12 Nutritional Consult ASSESSMENT: 84 year old female admitted with adult failure to thrive with myshemia gravis, aspirationn PNA, CHF, pressure wound on coccyx, Dysphagia, hx of eating disorder with 22 lbs weight loss in last 6 months and BMI <19 indicating protein calorie malnutrition. Met with Tanja today and discussed neeed to supplement PO intake with liquid protein and ensure to meet increased nutrient needs for weight gain, wound healing. Tanja presents with severe malnutrition in context of chronic illness as evidenced by recent weight loss, hx of poor intake and low BMI. Estimated Needs: 2294-4812 kcal, 70-80 g protein. Meds include folic acid, MVI and marinol. NUTRITIONAL DIAGNOSIS: severe malnutrition INTERVENTION: regular diet supplemented with liquid protein 1 oz BID, MVI, folic acid and ensure BID MONITORING AND EVALUATION: weight, po intake, labs Time Spent in Nutritional Counseling and Treatment: 15 min spent face to face
--- NOTE | 2020-09-20 14:04 | DSE_ITS ---
Date of service: 09/20/20 Time of Service: 14:04 DS: Diagnosis Discharge Diagnosis (1) Weakness: Status: Acute (2) Myasthenia gravis: Status: Chronic (3) Eating disorder: Status: Acute (4) COPD (chronic obstructive pulmonary disease): Status: Chronic Discharge Plan Disposition Patient Disposition: HOME Condition: Improving Discharge Details Reason For Visit: HYPOXIA AND WEAKNESS Admit Date/Time: 09/19/20 15:10 Admit Provider: Pete Bell Attending Provider: Pete Bell Primary Care Provider: Maribell Choi [facility] Course Hospital Course: This is an 84 yo female with a h/o mysthenia gravis, CHF, h/o DVT, afib, pulmonary hypertension, eating disorder. She presented to the ED for the second time in 2 days with c/o generalized weakness. She lives with her son and [id number] and has home health twice/week. Her w/u in the ED the day prior to this admission was unremarkable; including lab, urinalysis / urine cx, CT head, CXR. She endorsed that last PM she wet her bed. She did not want to disturb anyone in order to get assistance. She was afraid to ambulate alone because she had felt weak and had to let her self down to the floor the day before. She did not take her medications the am of this admission. Of note she does have a coccygeal ulcer that is being managed by wound care nurse. Also of note, she does have an appt at [facility] for this coming Thursday for plasma phoresis. She was going to be discharged to home from the ED but after she ambulated appx 10 ft. her O2 saturation on RA dropped to 85%. She was noted to have some increased work of breathing at the time. No CP, palpitations. She was admitted for further evaluation. It was noted on CXR that she had evidence of COPD. After a duoneb tx she maintained her O2 saturations with ambulation. She notes an improved appetite and endorses a desire to return home. Symbicort initiated. Cont f/u at [facility] and with PCP Home Meds and New Rx's Prescriptions: New fluticasone propion-salmeterol [Advair Diskus] 250-50 mcg/dose blister with device 1 inh inhalation BID Qty: 60 RF: 0 Continued sennosides [senna] 8.6 mg tablet 8.6 mg PO BID PRNRF: 0 multivitamin [Multiple Vitamins] Tablet 1 tab PO DAILY RF: 0 hydromorphone [Dilaudid] 2 MG tablet 2 mg PO Q4H PRN MDD 6 PRNRF: 0 melatonin 10 mg Tablet 10 mg PO HS RF: 0 ferrous sulfate 325 MG tablet 325 mg PO DAILY Qty: 0 RF: 0 acidophilus-pectin, citrus 25 million cell -100 mg Tablet 1 cap PO AC Qty: 0 RF: 0 furosemide [Lasix] 20 mg tablet 40 mg PO QAM RF: 0 gabapentin 300 MG capsule 300 mg PO BID RF: 0 folic acid 0.8 MG capsule 1 mg PO DAILY RF: 0 Eliquis 2.5 MG tablet 2.5 mg PO BID RF: 0 ergocalciferol (vitamin D2) [Vitamin D2] 50,000 UNITS capsule 50,000 units PO .QOWEEK RF: 0 cyanocobalamin (vitamin B-12) 1,000 MCG/ML solution 1 ea IM .QMONTH RF: 0 bisacodyl 10 MG suppository 1 ea CO PRN PRNRF: 0 methadone [Dolophine] 5 MG tablet 5 mg PO BID RF: 0 acetaminophen [Tylenol] 325 mg Tablet 650 mg PO Q4H PRN PRNQty: 30 RF: 0 lidocaine 5 % adhesive patch,medicated 1 patch topical DAILY PRNRF: 0 prednisone 10 MG tablet 5 mg PO DAILY RF: 0 Discharge Instructions Instructions: Malnutrition (GEN) Activity:: Activity as Tolerated Equipment/Supplies:: No Equipment Needed Diet:: As Tolerated Discharge Orders Discharge Orders: Discharge Order (Routine); Ordered 09/20/20 Ordered By: Pete Bell DS: Summary Status at Discharge Functional status at discharge: independent ambulation Overall status at discharge: patient is back to baseline Mental Status: mental status grossly normal Speech and Movement: speech and movement normal Mood: congruent mood Affect: normal affect Exam Const General: cooperative and no acute distress Nutritional Appearance: cachectic Orientation: alert and oriented x3 Eyes Sclera: sclerae normal Pupils: PERRL Resp Effort & Inspection: normal respiratory effort Auscultation: clear to auscultation bilaterally and diminished lung sounds Cardio Jugular venous pressure: no JVD Rate: regular rate Rhythm: regular rhythm Heart Sounds: S1 normal and S2 normal GI Palpation: soft and nontender Auscultation: normal bowel sounds Extrem General: no pedal edema and no calf tenderness Psych Appearance: grossly normal Mental Status: mental status grossly normal Speech and Movement: speech and movement normal Mood: congruent mood Affect: normal affect Attitude: cooperative DS: Data Vitals/I&O Vitals and I&O: Vital Signs Temperature 36.9 C 09/20/20 11:30 Temperature Source Temporal Artery Scan 09/20/20 11:30 Pulse 99 H 09/20/20 12:30 Pulse Rhythm Irregular 09/20/20 10:00 Pulse 92 H 09/19/20 16:15 Respiratory Rate 18 09/20/20 12:30 Respiratory Effort Non-Labored 09/20/20 10:00 Respiratory Depth Normal 09/20/20 10:00 Respiratory Pattern Normal 09/20/20 10:00 Blood Pressure 115/67 09/20/20 11:30 Blood Pressure Mean 68 09/19/20 16:15 Blood Pressure Position Sitting 09/19/20 12:45 Pulse Oximetry 100 09/20/20 12:30 Oxygen Delivery Method Nasal Cannula 09/20/20 12:25 Oxygen Flow Rate 1 09/20/20 12:25 Pain Level 0 09/20/20 11:30 Intake & Output 09/19/20 09/20/20 09/20/20 23:59 11:59 23:59 Intake Total 715 / 715 450 / 690 240 / 690 Output Total 300 / 300 Balance 415 / 415 450 / 690 240 / 690 Weight 51.4 kg 51.3 kg Intake: IV 515 / 515 Oral 200 / 200 450 / 690 240 / 690 Output: Urine 300 / 300 Other: Urine Color Light Dawna Light Dawna Urine Appearance Clear Clear Urine Odor Normal Normal Stool Size Small Stool Characteristics Soft Green Voiding Methods Bedside Commode Bedside Commode Data Completed and Pending Labs on day of discharge: Labs from last 24 hours 09/20/20 09/19/20 09/19/20 06:30 12:40 12:40 Sodium Potassium Chloride Carbon Dioxide Anion Gap BUN Creatinine Estimated GFR/1.73 m2 Glucose Calcium Iron 22 L TIBC 216 L Transferrin % Sat 10 L Total Bilirubin AST ALT Alkaline Phosphatase Total Protein Albumin TSH 0.79 COVID-19 PCR Pending Nasopharyn COVID-19 PCR Pending Ref Test Perform Site Pending 09/19/20 12:40 Sodium 140 Potassium 3.6 Chloride 102 Carbon Dioxide 32.3 H Anion Gap 5.7 BUN 26 H Creatinine 1.33 H Estimated GFR/1.73 m2 38.20 Glucose 91 Calcium 9.9 Iron TIBC Transferrin % Sat Total Bilirubin 1.0 AST 20 ALT 13 L Alkaline Phosphatase 69 Total Protein 6.7 Albumin 3.6 TSH COVID-19 PCR Nasopharyn COVID-19 PCR Ref Test Perform Site [facility] Medical History Aspiration pneumonia Atrial fibrillation B12 deficiency Cardiomyopathy Echo 12/10/2018: EF 60-65%, up from 35% previously; does have diastolic dysfunction CHF (congestive heart failure) Chronic constipation Chronic insomnia Chronic pain on methadone therapy Compression fracture of spine Depression Dysphagia 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 Gastrostomy Tube Placement H/O wisdom tooth extraction S/P appendectomy Family History Father Heart disease Mother Cancer pancreatic Social History Smoking/Tobacco Use Status: Never Smoking risk assessment performed?: Yes Alcohol Intake: current Alcohol Intake frequency: a few times a week Alcohol type: hard liquor Drug use: Never Substance use type: does not use Do you feel safe at home: Yes Do you feel safe in your relationship?: Yes Additional Social history: live with son and his family
--- NOTE | 2020-09-20 14:58 | CHAPLAIN ---
Tanja and I remembered each other from a previous admission. She is a [employer] and has been attending [employer] online with the [employer]. Being online has allowed Tanja to attend as she has difficulty traveling. She lives with son and daughter in law and she said her daughter in law is very helpful to her. Tanja is very up on current events and was interested in talking about the upcoming election.
--- NOTE | 2020-09-20 15:16 | WOUNDCONS ---
- If Service Date Differs Date of service: 09/20/20 Time of Service: 15:16 Wound Initial Evaluation Narrative: Spoke with the wound center at [facility] in [place], [place]. They faxed her progress notes and current dressing recommendation. Patient is comfortable with her current plan of care and has a follow up appointment around September 26, 2020 recommended. Current inpatient recommendations would be to follow plan of care set forth by the wound care center at [facility] and follow up per their recommendations. Patient states she has all needed supplies at home. In addition recommend attention to incontinent care, not letting area get wet or soiled.
--- NOTE | 2020-09-20 15:21 | PT.INTREAT ---
Date of service: 09/20/20 Time of Service: 15:21 PT Notes Visit Reasons: HYPOXIA AND WEAKNESS Inpatient Physical Therapy Treatment Note [facility] Date: 09/20/2020 PRECAUTIONS: Fall, Activity as Tolerated SUBJECTIVE: Tanja reports that she would like to go home today. She also reports that at home, she only needs to walk to the bathroom and dining room, all on the first floor, which is less than 30 feet. OBJECTIVE: PAIN: No c/o pain BED MOBILITY/TRANSFERS Supine-sit: I with HOB flat Sit-supine: I with HOB flat Sit-stand: S Stand-sit: S Bed-chair: SBA Chair-bed: SBA GAIT Assistive Device: 4WW Weight bearing: Full Assist: SBA Distance: 100' x2 Deviation: Areli's hump from MS VITALS: 91-93% on RA with gait training (PT session performed in collaboration with Isrrael from Respiratory Therapy.) ASSESSMENT: Patient tolerated session without complaint. She was able to maintain proper oxygen saturation during gait training, and was able to tolerate gait training with 4WW and SBA. PLAN: Per MD, patient to discharge to home later today. TREATMENT CODE/TIME: 15 minutes; [id number]
--- NOTE | 2020-09-20 17:23 | PDOC.CMDIS ---
- If Service Date Differs Date of service: 09/20/20 Time of Service: 17:23 LACE Index Scoring Tool - Questions: Length of Stay (in days): 2 Acuity (Admit via E.D.?): Yes Comorbidities: Congestive Heart Failure, Chronic Pulmonary Disease E.D. Visits: 4 - Answers: Total Score: 14 Risk of Readmission: High Risk Care Management Discharge Reason for Hospitalization: Weakness, hypoxia Discharge Plan: Tanja will return home today with a resumption of [facility] RN, PT. Her daughter in law will drive her home via private vehicle. She will follow up with her PCP and discharge plan of care. She is happy to be going home. Patient/Family Education Needs: Review discharge instructions regarding medications and activity levels, discussion of self care needs and goals of care. Services Needed at Discharge: Home Health Care Services (resume [facility] RN, PT)
[2020-09-22 13:39] LABS: COVID-19 RT-PCR UVMMC Result NEGATIVE (Negative)
--- NOTE | 2020-09-24 12:13 | INDS_ITS ---
Date of service: 09/24/20 Time of Service: 12:13 PT Notes Visit Reasons: HYPOXIA AND WEAKNESS Physical Therapy Inpatient Discharge Summary Date: 09/24/2020 Service: 09/20/2020 only This is a clinical summary of care provided on the duration of dates listed above. No charge was made in the completion of this documentation. Referring Doctor: Pete Tran MD PT Orders: PT CONSULT: Eval/treat Precautions: Fall. Standard. Stage III coccygeal ulcer. Activity as tolerated. Patient Profile/Admitting Diagnosis: Patient is an 84-year-old female a who presented to the ED on 09/19/2020 with generalized weakness, breath, and difficulty ambulating at home. 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) Hx of deep venous thrombosis (Resolved) Lumbago (Resolved) Macrocytic anemia (Resolved) Malnutrition (Resolved) Myasthenia gravis (Chronic) Osteoporosis (Chronic) Peripheral neuropathic pain (Inactive) Post herpetic neuralgia (Resolved) Pulmonary arterial hypertension (Acute) PA pressure 35-40 mm Hg Sacral decubitus ulcer, stage IV (Inactive) Surgical History (Updated 02/04/20 @ 16:00 by Shreya Parker MD) Abdominal fistula (Resolved 08/17/18) repair by Dr Elizalde AV fistula (Inactive) RUE Gastrostomy complication (Resolved 08/17/18) gastric enteric fistula repair by Dr Elizalde Gastrostomy infection (Resolved 08/10/18) Dr Elizalde, excised tissue at old g-tube site and closed g-tube tract surgically. Gastrostomy Tube Placement (Resolved) H/O wisdom tooth extraction (Acute) S/P appendectomy (Acute) History/Home Situation: Lives with her daughter and in a two-story home with 3 steps to enter through the kitchen bilateral rails. She lives on the first floor of the home. She needs to walk about 15 feet to the bathroom that is outside her bedroom and about 25 feet to the dining area. Dependent with the use of a 4 wheeled walker for all mobility ADL performance. Equipment Owned/DME: Front wheel walker Subjective: NT. See most recent ECONOMICS DEPARTMENT CHAIR notes. Objective: General Observation: NT. See most recent ECONOMICS DEPARTMENT CHAIR notes. Mental Status:NT. See most recent ECONOMICS DEPARTMENT CHAIR notes. Pain: NT. See most recent ECONOMICS DEPARTMENT CHAIR notes. Vital Signs: NT. See most recent ECONOMICS DEPARTMENT CHAIR notes. ROM: Trunk extension: -10 degrees in standing Right Upper Extremity: Within functional limits Left Upper Extremity: Within functional limits Right Lower Extremity: Within functional limits Left Lower Extremity: Within functional limits Strength: Right Upper Extremity: 4-/5 flexion and abduction right shoulder, 4/5 bicep tricep, good optical lab technician strength Left Upper Extremity: 4-/5 flexion and abduction left shoulder, 4/5 bicep tricep, good optical lab technician strength Right Lower Extremity: 4-/5 hip flexion, quads and hamstrings, 4-/5 abduction tested in sitting. 4+/5 adduction. Plantarflexion and dorsiflexion 4/5 Left Lower Extremity: 4-/5 hip flexion, quads and hamstrings, 4-/5 abduction tested in sitting. 4+/5 adduction. Plantar flexion dorsiflexion 4/5 Sensation: Reports intact sensation as to light touch in bilateral lower extremities Bed Mobility/Transfers: Rolling independent Supine to sit independent Sit to supine independent Sit to stand supervision Stand to sit supervision Bed to chair stand by assist Chair to bed stand by assist Gait: 100 feet x 2 using 4 wheeled walker with full weight bearing on bilateral lower extremities requiring only contact-guard assist with severe thoracic kyphosis from dowagers hump from multiple sclerosis seen. 91-93% on RA. Decreased michelle. Decreased trunk extension throughout. Balance: Static Sitting: Normal Dynamic Sitting: Normal Static Standing: Fair Dynamic Standing: Fair Assessment: Tanja demonstrates need for the use of a front wheeled walker for all mobility ADL performance, balance impairment due to chronic severe thoracic kyphosis from multiple sclerosis, generalized weakness, and increased risk for falls due to admitting diagnoses. Patient continues to present with clinical signs and symptoms consistent with current/admitting diagnoses that have resulted to mobility limitations, gait instability, generalized weakness, and impairment of motor control as demonstrat ed by the following impairment level findings: 1. Decreased strength to B LE major muscle groups 2. Impaired standing balance 3. Impaired activity tolerance 4. 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 Increased dependence with transfers 2. Inability to safely ambulate without assistive device and physical assistance 3. Increase completion time for mobility ADL performance 4. Increased fall risk 5. Inability to negotiate steps alone safely Goals: Goals X1 week 1. Supine-Sit independent MET 2. Sit-Supine independent MET 3. Sit-Stand independent NOT MET 4. Stand-Sit independent NOT MET 5. Bed-Chair independent NOT MET 6. Chair-Bed independent NOT MET 7. Supervision gait on level surface with use of least restrictive device for at least 300 feet without report of pain nor dyspnea NOT MET 8. Supervision stair negotiation while holding onto bilateral rails for at least 10 steps without report of pain nor dyspnea NOT MET 9. Independent with home exercise program NOT MET 10. Good static and dynamic standing balance/tolerance NOT MET DISCHARGE RECOMMENDATIONS: Patient will benefit from home health PT services in order to progress mobility level using least restrictive assistive ambulatory device, assess home safety, identify additional equipment needs, and establish a functional maintenance program that will increase ability of patient to remain at home. TREATMENT CODE/TIME: UT Thank you for the opportunity to participate in the care of this patient. Anamika Miner PT, DPT, CLT [facility] [place], [place]
== END 2020-09-20 15:50 | disposition home or self-care (01) | DRG 640 ==
LOC: ER 15:07 → MS 16:31
PROVIDERS: Admitting Provider Family Medicine; Emergency Provider Registered Nurse Emergency; PCP Family Medicine; Visit Provider Family Medicine
DX: E43 Unspecified severe protein-calorie malnutrition (principal); L89.154 Pressure ulcer of sacral region, stage 4; Z68.1 Body mass index [BMI] 19.9 or less, adult; I42.9 Cardiomyopathy, unspecified; G70.00 Myasthenia gravis without (acute) exacerbation; J44.9 Chronic obstructive pulmonary disease, unspecified; I50.9 Heart failure, unspecified; Z86.718 Personal history of other venous thrombosis and embolism; I48.91 Unspecified atrial fibrillation; I27.20 Pulmonary hypertension, unspecified; E53.8 Deficiency of other specified B group vitamins; M81.0 Age-related osteoporosis without current pathological fracture; F32.9 Major depressive disorder, single episode, unspecified; M54.5 Low back pain; D53.9 Nutritional anemia, unspecified; R13.10 Dysphagia, unspecified; G89.29 Other chronic pain; F50.9 Eating disorder, unspecified; R09.02 Hypoxemia
CPT/HCPCS: 36415; 80053; 96360; 96361; 97163; 97530; 99222; 99239; 99285; U0003; 83540; 83550; 84443; 85025; 94640; 99284; J1756; J7512; J7620

== ENCOUNTER 2020-10-08 09:00 | Outpatient (RCR) | payer MEDICARE, BC, SELFPAY ==
[2020-09-24] MEDS: Normal Saline Flush 10 ML SYR IVP (09:16)
[2020-10-08] MEDS: Normal Saline Flush 10 ML SYR IVP (09:31)
== END 2020-10-22 23:59 | disposition home or self-care (01) ==
LOC: INF 09:00
PROVIDERS: PCP Family Medicine; Visit Provider Internal Medicine
DX: G70.00 Myasthenia gravis without (acute) exacerbation (principal)
CPT/HCPCS: 96365; J1300

== ENCOUNTER 2020-11-07 23:27 | Outpatient (CLI) | payer MEDICARE, BC, SELFPAY ==
--- NOTE | 2020-11-07 14:48 | DI.RAD_ITS ---
EXAM: XR CERVICAL SPINE COMP 4-5V CLINICAL HISTORY: ? WORSENING CERVICAL STENOSIS OR INSTABILITY,M48.02,MYASTHEN GRAVIS. TECHNIQUE: 2D digital imaging was performed. COMPARISON: No exams were available for comparison FINDINGS: There is no evidence of fracture nor problem listhesis. There is mild anterolisthesis of C 4 on C5 w hich is related to degenerative changes in the facet joints. there is reversal of the normal curvat ure. Milder it multilevel degenerative disc space narrowing and degenerative is facet joint disease is noted. No obvious osseous lesions. No cervical ribs. IMPRESSION: Degenerative changes. DATA REPOSITORY: RADIATION DOSE DELIVERED:
== END 2020-11-07 23:47 ==
PROVIDERS: PCP Family Medicine; Visit Provider Psychiatry & Neurology Neurology
DX: M43.12 Spondylolisthesis, cervical region (principal); M48.02 Spinal stenosis, cervical region; G70.00 Myasthenia gravis without (acute) exacerbation
CPT/HCPCS: 72050

== ENCOUNTER 2020-11-15 00:48 | Outpatient (RCR) | payer MEDICARE, BC, SELFPAY ==
[2020-10-23] MEDS: Normal Saline Flush 10 ML SYR IVP (13:40)
[2020-11-05] MEDS: Normal Saline Flush 10 ML SYR IVP (09:32)
[2020-11-15] MEDS: Normal Saline Flush 10 ML SYR IVP (09:38)
== END 2020-11-22 23:59 | disposition home or self-care (01) ==
LOC: INF 00:48
PROVIDERS: PCP Family Medicine; Visit Provider Internal Medicine
DX: G70.00 Myasthenia gravis without (acute) exacerbation (principal)
CPT/HCPCS: 96365; J1300

== ENCOUNTER 2020-12-03 01:59 | Outpatient (RCR) | payer MEDICARE, BC, SELFPAY ==
[2020-12-03] MEDS: Normal Saline Flush 10 ML SYR IVP (09:27)
== END 2020-12-23 23:59 | disposition home or self-care (01) ==
LOC: INF 01:59
PROVIDERS: PCP Family Medicine; Visit Provider Internal Medicine
DX: G70.00 Myasthenia gravis without (acute) exacerbation (principal)
CPT/HCPCS: 96365; J1300

== ENCOUNTER 2021-01-16 02:10 | Outpatient (RCR) | payer MEDICARE, BC, SELFPAY ==
[2020-12-24] MEDS: Normal Saline Flush 10 ML SYR IVP (14:22)
[2021-01-16] MEDS: Normal Saline Flush 10 ML SYR IVP (13:04)
== END 2021-01-20 23:59 | disposition home or self-care (01) ==
LOC: INF 02:10
PROVIDERS: PCP Family Medicine; Visit Provider Internal Medicine
DX: G70.00 Myasthenia gravis without (acute) exacerbation (principal)
CPT/HCPCS: 96365; J1300

== ENCOUNTER 2021-02-13 02:59 | Outpatient (RCR) | payer MEDICARE, BC, SELFPAY ==
[2021-01-30] MEDS: Normal Saline Flush 10 ML SYR IVP (09:32)
[2021-02-13] MEDS: Normal Saline Flush 10 ML SYR IVP (09:31)
== END 2021-02-20 23:59 | disposition home or self-care (01) ==
LOC: INF 02:59
PROVIDERS: PCP Family Medicine; Visit Provider Internal Medicine
DX: G70.00 Myasthenia gravis without (acute) exacerbation (principal)
CPT/HCPCS: 96365; J1300

== ENCOUNTER 2021-03-13 02:29 | Outpatient (RCR) | payer MEDICARE, BC, SELFPAY ==
[2021-02-27] MEDS: Normal Saline Flush 10 ML SYR IVP (09:38)
[2021-03-13] MEDS: Normal Saline Flush 10 ML SYR IVP (09:39)
== END 2021-03-22 23:59 | disposition home or self-care (01) ==
LOC: INF 02:29
PROVIDERS: PCP Family Medicine; Visit Provider Internal Medicine
DX: G70.00 Myasthenia gravis without (acute) exacerbation (principal)
CPT/HCPCS: 96365; J1300

== ENCOUNTER 2021-04-10 01:55 | Outpatient (RCR) | payer MEDICARE, BC, SELFPAY ==
[2021-03-27] MEDS: Normal Saline Flush 10 ML SYR IVP (12:17)
[2021-04-10] MEDS: Normal Saline Flush 10 ML SYR IVP (09:10)
== END 2021-04-22 23:59 | disposition home or self-care (01) ==
LOC: INF 01:55
PROVIDERS: PCP Family Medicine; Visit Provider Internal Medicine
DX: G70.00 Myasthenia gravis without (acute) exacerbation (principal)
CPT/HCPCS: 96365; J1300

== ENCOUNTER 2021-05-22 02:18 | Outpatient (RCR) | payer MEDICARE, BC, SELFPAY ==
[2021-04-24] MEDS: Normal Saline Flush 10 ML SYR IVP (09:08)
[2021-05-08] MEDS: Normal Saline Flush 10 ML SYR IVP (09:28)
[2021-05-22] MEDS: Normal Saline Flush 10 ML SYR IVP (09:31)
== END 2021-05-22 23:59 | disposition home or self-care (01) ==
LOC: INF 02:18
PROVIDERS: PCP Family Medicine; Visit Provider Internal Medicine
DX: G70.00 Myasthenia gravis without (acute) exacerbation (principal)
CPT/HCPCS: 96365; J1300

== ENCOUNTER 2021-05-31 10:26 | Outpatient (REF) | payer MEDICARE, BC, SELFPAY ==
[2021-05-31 19:25] LABS: Anion Gap 12.1 mmol/L (3-11); BUN 29 mg/dL (7-18); CO2 30.9 mmol/L (21.0-32.0); CREATININE 1.6 mg/dL (0.55-1.02); Calcium 9.9 mg/dL (8.5-10.1); Chloride 100 mmol/L (98-107); Estimated GFR 30.78 (mL/min/1.73m2); Glucose 76 mg/dL (74-106); Potassium 4.2 mmol/L (3.5-5.1); Sodium 143 mmol/L (136-145)
== END 2021-05-31 10:27 | disposition home or self-care (01) ==
LOC: NCHCN 10:26
PROVIDERS: PCP Family Medicine; Visit Provider Family Medicine
DX: I50.9 Heart failure, unspecified (principal); R63.6 Underweight
CPT/HCPCS: 80048

== ENCOUNTER 2021-06-03 19:12 | Outpatient (REF) | payer MEDICARE, BC, SELFPAY ==
[2021-06-03 21:24] LABS: Anion Gap 7.4 mmol/L (3-11); BUN 35 mg/dL (7-18); CO2 35.6 mmol/L (21.0-32.0); CREATININE 1.6 mg/dL (0.55-1.02); Calcium 9.9 mg/dL (8.5-10.1); Chloride 99 mmol/L (98-107); Estimated GFR 30.78 (mL/min/1.73m2); Glucose 140 mg/dL (74-106); Potassium 3.8 mmol/L (3.5-5.1); Sodium 142 mmol/L (136-145)
== END 2021-06-03 19:13 | disposition home or self-care (01) ==
LOC: NCHCN 19:12
PROVIDERS: PCP Family Medicine; Visit Provider Family Medicine
DX: I50.9 Heart failure, unspecified (principal)
CPT/HCPCS: 80048

== ENCOUNTER 2021-06-19 02:55 | Outpatient (RCR) | payer MEDICARE, BC, SELFPAY ==
[2021-06-05] MEDS: Normal Saline Flush 10 ML SYR IVP (09:43)
[2021-06-19] MEDS: Normal Saline Flush 10 ML SYR IVP (09:18)
== END 2021-06-22 23:59 | disposition home or self-care (01) ==
LOC: INF 02:55
PROVIDERS: PCP Family Medicine; Visit Provider Internal Medicine
DX: G70.00 Myasthenia gravis without (acute) exacerbation (principal)
CPT/HCPCS: 96365; J1300

== ENCOUNTER 2021-07-17 02:10 | Outpatient (RCR) | payer MEDICARE, BC, SELFPAY ==
[2021-07-05] MEDS: Normal Saline Flush 10 ML SYR IVP (09:07)
[2021-07-17] MEDS: Normal Saline Flush 10 ML SYR IVP (09:02)
== END 2021-07-23 23:59 | disposition home or self-care (01) ==
LOC: INF 02:10
PROVIDERS: PCP Family Medicine; Visit Provider Internal Medicine
DX: G70.00 Myasthenia gravis without (acute) exacerbation (principal)
CPT/HCPCS: 36415; 96365; J1300

== ENCOUNTER 2021-08-14 02:37 | Outpatient (RCR) | payer MEDICARE, BC, SELFPAY ==
[2021-07-31] MEDS: Normal Saline Flush 10 ML SYR IVP (09:38)
[2021-08-14] MEDS: Normal Saline Flush 10 ML SYR IVP (10:01)
== END 2021-08-22 23:59 | disposition home or self-care (01) ==
LOC: INF 02:37
PROVIDERS: PCP Family Medicine; Visit Provider Internal Medicine
DX: G70.00 Myasthenia gravis without (acute) exacerbation (principal)
CPT/HCPCS: 96365; J1300

== ENCOUNTER 2021-09-11 01:25 | Outpatient (RCR) | payer MEDICARE, BC, SELFPAY ==
[2021-08-28] MEDS: Normal Saline Flush 10 ML SYR IVP (10:42)
[2021-09-11] MEDS: Normal Saline Flush 10 ML SYR IVP (10:18)
== END 2021-09-22 23:59 | disposition home or self-care (01) ==
LOC: INF 01:25
PROVIDERS: PCP Family Medicine; Visit Provider Internal Medicine
DX: G70.00 Myasthenia gravis without (acute) exacerbation (principal)
CPT/HCPCS: 96365; J1300

== ENCOUNTER 2021-10-10 19:07 | Outpatient (REF) | payer MEDICARE, BC, SELFPAY ==
[2021-10-12 13:42] LABS: COVID-19 RT-PCR UVMMC Result Negative (Negative)
== END 2021-10-10 19:08 | disposition home or self-care (01) ==
LOC: NCHCN 19:07
PROVIDERS: PCP Family Medicine; Visit Provider Family Medicine
DX: Z20.822 Contact with and (suspected) exposure to COVID-19 (principal); R06.02 Shortness of breath
CPT/HCPCS: U0003

== ENCOUNTER 2021-10-10 19:47 | Inpatient (IN) | payer MEDICARE, BC, SELFPAY ==
[2021-10-10] VITALS (30 sets, daily range): BP systolic 107–134; BP diastolic 46–68; PULSE 57–99; RESP 11–25; TEMP 36.6; O2SAT 93–100
--- NOTE | 2021-10-10 19:45 | RT.EKG_ITS ---
APPROVED REPORT Exam: Resting ECG Reason for Exam: chest pain Patient Location: E HR:91 bpm ECG Measurements Heart Rate 91 AXIS TX [id number] P [id number] QRSd 89 QRS 5 QT 388 T 35 QTc 479 Conclusion Atrial fibrillation...? atrial activity Ventricular premature complex...V complex w/ short R-R interval Aberrant conduction of SV complex(es)...aberrant shape, [place] 80-[address] depression, anterolateral leads...ST <-0.07mV, I aVL V2-V6
--- NOTE | 2021-10-10 20:00 | DI.CT_ITS ---
Exam(s) CT CHEST PE CTA EXAM: CT CHEST PE CTA CLINICAL HISTORY: shortness of breath. TECHNIQUE: Imaging Protocol: Axial CT angiography was performed with multi-slice acquisition and mu lti-planar and/or 3D reconstructions. CONTRAST MATERIAL: Intravenous: Omnipaque 350 Contrast volume:65 ml COMPARISON: CT DI.CTAPWO from 08/13/2018 CR XR CHEST 2V PA LATERAL from 09/18/2020 CR XR CHEST 2V PA LATERAL from 09/18/2020 FINDINGS: Exam is somewhat limited by respiratory motion. Pulmonary Arteries: No evidence of filling defect to suggest pulmonary emboli. Prominent pulmonary ar teries could be seen with pulmonary hypertension. Tracheobronchial tree: Patent where visualized. Mediastinum and Kelsie: No dominant adenopathy or fluid collection. Pulmonary parenchyma: Limited evaluation due to expiratory changes. Bilateral upper lobe scarring an d mild bronchiectasis. Moderate bronchiectasis inferior portions of the right middle lobe and lingul a. Pleura: No effusion or pneumothorax. Heart: The heart is mildly dilated. coronary artery calcifications are seen. Aorta: Thoracic aorta ectatic throughout.. 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 No dissection. No evidence of leak. Upper abdomen: Prior stomach surgery. Bones: Pectus excavatum deformity. Multiple compression fractures, greatest in the mid thoracic spin e. No retropulsion. No gross disc herniation. IMPRESSION: No evidence of pulmonary embolism. 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 Chronic pulmonary changes. Chronic appearing thoracic compression fractures. RADIATION DOSE DELIVERED: 272.02mGy.cm Total DLP DATA REPOSITORY: All CT scans at this facility are submitted to the National Radiology Data Registry (NRDR) Dose Index Registry (DIR) with the [employer] (ACR). RADIATION OPTIMIZATION: All CT scans at this facility use at least one of these dose optimization te chniques: automated exposure control; mA and/or kV adjustment per patient size (includes targeted exa ms where dose is matched to clinical indication); or iterative reconstruction.
--- NOTE | 2021-10-10 20:04 | W.ED.GENAD ---
Discharge Plan Disposition Patient Disposition: [facility] INPATIENT Condition: Stable Discharge Details Chief Complaint: SOB Clinical Impression: Myasthenia gravis, Weakness, Exertional dyspnea Primary Care Provider: Maribell Choi ED Provider: Dirk Gonzalez Home Meds and New Rx's Prescriptions: No Action sennosides [senna] 8.6 mg tablet 8.6 mg PO BID PRNRF: 0 multivitamin [Multiple Vitamins] Tablet 1 tab PO DAILY RF: 0 hydromorphone [Dilaudid] 2 MG tablet 2 mg PO Q4H PRN MDD 6 PRNRF: 0 melatonin 10 mg Tablet 10 mg PO HS RF: 0 ferrous sulfate 325 MG tablet 325 mg PO DAILY Qty: 0 RF: 0 acidophilus-pectin, citrus 25 million cell -100 mg Tablet 1 cap PO AC Qty: 0 RF: 0 furosemide [Lasix] 20 mg tablet 40 mg PO QAM RF: 0 gabapentin 300 MG capsule 600 mg PO BID RF: 0 folic acid 0.8 MG capsule 1 mg PO DAILY RF: 0 Eliquis 2.5 MG tablet 5 mg PO BID RF: 0 ergocalciferol (vitamin D2) [Vitamin D2] 50,000 UNITS capsule 50,000 units PO .QOWEEK RF: 0 cyanocobalamin (vitamin B-12) 1,000 MCG/ML solution 1 ea IM .QMONTH RF: 0 bisacodyl 10 MG suppository 1 ea [place] PRN PRNRF: 0 methadone [Dolophine] 5 MG tablet 5 mg PO BID RF: 0 acetaminophen [Tylenol] 325 mg Tablet 650 mg PO Q4H PRN PRNQty: 30 RF: 0 lidocaine 5 % adhesive patch,medicated 1 patch topical DAILY PRNRF: 0 prednisone 10 MG tablet 20 mg PO DAILY RF: 0 albuterol sulfate [ProAir HFA] 90 mcg/actuation HFA aerosol inhaler 2 puff inhalation QID Qty: 6.7 RF: 0 Medical Decision Making 86 yo female with hx of afib on eliquis, myasthenia, who had evidence of copd on lung imaging a year ago, who comes in with several days of shortness of breath especially with exertion. Denies any fevers, chills, chest pain, has had general weakness. She was admitted for similar symptoms a year ago in August and after duoneb and monitoring was discharged. She has been vaccinated including a booster for covid. She is in no distress on exam with stable vitals. She is speaking clearly, caox4 and has no focal motor or sensation deficits. No cranial nerve deficits. She does have wheezing at the bases bilaterally no jvd or leg swelling. Unclear exact etiology for her symptoms, will evaluate for possible acs with ecg and troponin. No tachycardia or hypoxia but given her shortness of breath will obtain cta to evaluate for Pe and possible pneumonia and obtain covid test. She has no neuro findings on exam to suggest myasthenia crisis, will have respiratory obtain NIF labs show hemoglobin of 8 and she is chronically anemic, negative guiac on bedside testing. cta shows saccular aneurysm and no pe but does have infiltrates and has had a cough. Wheezing improved with duoneb. She does desaturate into the 80's with movement stays in the 90's at rest. Per respiratory NIF is at her baseline, had -28. Discussed with pt and offered to discuss her aneurysm with ct surgery but she declined as she would not want to go through any surgery to repair this. Will discuss with hospitalist about admission Differential Diagnosis Differential Diagnosis: covid, pneumonia, copd Medical Records Medical records reviewed: Yes I reviewed the patient's medical records. Imaging Data Radiologic Study: Attestation: I personally reviewed and interpreted this imaging study as follows: Imaging: CT Scan Radiologist's impression: IMPRESSION: 1. Limited by respiratory motion but no definite pulmonary embolus. 2. Ectatic intrathoracic aorta with a focal intimal ulceration and saccular aneurysm along the posterior wall of the descending aorta as detailed above. 3. Multifocal bronchiectasis most severe in the right middle lobe and lingula. 4. Mild patchy bilateral lower lobe infiltrates. 5. Chronic biapical pleuroparenchymal scarring. 6. Moderate multichamber cardiomegaly. 7. Curvilinear calcification within the gastric wall which may be a calcified suture line. A foreign body is not excluded entirely. Historical correlation advised. 8. Severe osseous demineralization with numerous chronic appearing compression fractures within the thoracic and upper lumbar spine which I suspect are insufficiency fractures. If there is concern for an acute component further evaluation with a nonemergent MRI of the thoracic spine might be considered. Lab Data Lab results reviewed: Yes I reviewed the patient's lab results. ECG Data Attestation: I personally reviewed and interpreted this ECG (s) as follows: Prior ECG tracings: available for review Interpretation: afib, rate of 77, qtc 470 HPI General Mode of arrival: EMS. Date/Time Provider Initiated Documentation: 10/10/21 20:01. Limitations to Documentation: no limitations. Information obtained by: patient. History of Present Illness 86 year old F presents to the emergency department with the chief complaint of dyspnea, described as moderate, Patient started experiencing this day(s) (2) and it has been constant. Rest improves symptom(s), Movement worsens symptoms . Patient notes no other symptoms.. Patient did receive the following treatments prior to arrival, none Related Data Home Medications Medication Instructions Recorded Confirmed Eliquis 5 mg PO BID 07/08/17 10/10/21 folic acid 1 mg PO DAILY 07/08/17 10/10/21 gabapentin 600 mg PO BID 07/08/17 10/10/21 cyanocobalamin (vitamin B-12) 1 ea IM .QMONTH 07/27/17 10/10/21 ergocalciferol (vitamin D2) 50,000 units PO .QOWEEK 07/27/17 10/10/21 [Vitamin D2] bisacodyl 1 ea [place] PRN PRN 09/26/17 09/19/20 sennosides 8.6 mg tablet 8.6 mg PO BID PRN 08/02/18 10/10/21 methadone [Dolophine] 5 mg PO BID 08/06/18 10/10/21 acetaminophen [Tylenol] 650 mg PO Q4H PRN PRN #30 tab 08/10/18 09/19/20 multivitamin [Multiple Vitamins] 1 tab PO DAILY 08/16/18 10/10/21 hydromorphone [Dilaudid] 2 mg PO Q4H PRN PRN MDD 6 02/04/20 10/10/21 melatonin 10 mg PO HS 02/04/20 10/10/21 ferrous sulfate 325 mg PO DAILY #0 tab 02/12/20 10/10/21 acidophilus-pectin, citrus 1 cap PO AC #0 tab 02/15/20 09/19/20 furosemide [Lasix] 40 mg PO QAM 09/18/20 10/10/21 lidocaine 1 patch TOPICAL DAILY PRN 09/19/20 10/10/21 prednisone 20 mg PO DAILY 10/28/20 11/18/21 albuterol sulfate [ProAir HFA] 2 puff INHALATION QID #6.7 g 09/20/20 Previous Rx's Medication Instructions Recorded acetaminophen [Tylenol] 650 mg PO Q4H PRN PRN #30 tab 08/10/18 ferrous sulfate 325 mg PO DAILY #0 tab 02/12/20 acidophilus-pectin, citrus 1 cap PO AC #0 tab 02/15/20 albuterol sulfate [ProAir HFA] 2 puff INHALATION QID #6.7 g 09/20/20 Allergies Allergy/AdvReac Type Severity Reaction Status Date / Time FAHAD Inhibitors Allergy Unverified 10/10/21 20:02 albuterol Allergy Unverified 10/10/21 20:02 Beta-Blockers Allergy Unverified 10/10/21 20:02 (Beta-Adrenergic Bloc Sulfa (Sulfonamide Allergy Hives Verified 10/10/21 20:02 Antibiotics) sulfamethoxazole Allergy Unverified 10/10/21 20:02 [From Bactrim] trimethoprim [From Bactrim] Allergy Unverified 10/10/21 20:02 General Stated Complaint: SOB KIERSTEN: 2 Review of Systems All systems reviewed & are unremarkable except as noted in HPI and below Constitutional Constitutional: Denies chills and Denies fever(s) Cardiovascular Cardiovascular: Denies chest pain and Denies dyspnea Respiratory Respiratory: Denies cough and Denies dyspnea Gastrointestinal Gastrointestinal: Denies abdominal pain, Denies nausea and Denies vomiting Musculoskeletal Musculoskeletal: Denies joint swelling Psychiatric Psychiatric: Denies depression PFSH Medical History Aspiration pneumonia Atrial fibrillation B12 deficiency Cardiomyopathy Echo 12/10/2018: EF 60-65%, up from 35% previously; does have diastolic dysfunction CHF (congestive heart failure) Chronic constipation Chronic insomnia Chronic pain on methadone therapy Compression fracture of spine Depression Dysphagia 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 Gastrostomy Tube Placement H/O wisdom tooth extraction S/P appendectomy Family History Father Heart disease Mother Cancer pancreatic Social History Smoking/Tobacco Use Status: Never Smoking risk assessment performed?: Yes Alcohol Intake: current Alcohol Intake frequency: a few times a week Alcohol type: hard liquor Drug use: Never Substance use type: does not use Do you feel safe at home: Yes Do you feel safe in your relationship?: Yes Additional Social history: live with son and his family Exam Const General: no acute distress Orientation: alert HENMT Head: normal to inspection Ears: external ears normal General nose exam: external nose normal Mouth: moist mucous membranes Eyes General: appearance normal, both eyes and all related structures Neck Neck: normal visual inspection Resp Effort & Inspection: normal respiratory effort Cardio Rate: regular rate Skin General skin exam: no rashes or lesions noted Neuro General: patient alert and patient oriented x3 Extrem General: normal to inspection Psych Mental Status: mental status grossly normal Course Vital Signs Vital signs: Vital Signs Temperature 36.6 C 10/10/21 19:53 Pulse 87 10/10/21 19:53 Respiratory Rate 22 10/10/21 19:53 Blood Pressure 107/46 L 10/10/21 19:53 Pulse Oximetry 96 10/10/21 19:53 Temperature 36.6 C 10/10/21 19:53 Temperature Source Temporal Artery Scan 10/10/21 19:53 Pulse 87 10/10/21 19:53 Respiratory Rate 17 10/10/21 19:58 Respiratory Effort 10/10/21 19:58 Respiratory Depth Normal 10/10/21 19:58 Respiratory Pattern Normal 10/10/21 19:58 Blood Pressure 107/46 L 10/10/21 19:53 Blood Pressure Position Supine 10/10/21 19:53 Pulse Oximetry 96 10/10/21 19:53 Oxygen Delivery Method Room Air 10/10/21 19:53 Oxygen Flow Rate 0 10/10/21 19:53 End Tidal Co2 0 10/10/21 19:53
[2021-10-10 20:40] LABS: Source Nasal/Nares
[2021-10-10 20:44] LABS: Abs Immature Grans 0.08 10^3/uL (0.0-0.06); Absolute Lymphocyte Count 0.26 10^3/uL (1.2-3.4); Absolute Monocyte Count 0.46 10^3/uL (0.1-0.8); Absolute Neutrophil Count 8.09 10^3/uL (1.2-6.7); HCT 26.8 % (36.0-46.0); HGB 8.1 g/dL (11.2-15.7); Immature Grans % 0.9; Lymphocytes % 2.9; MCH 32.3 pg (27.0-33.0); MCHC 30.2 % (32.0-36.0); MCV 106.8 fL (80-95); MPV 10.1 fL (8.0-11.0); Monocytes % 5.2; Nucleated RBC 0 %; Platelet Count 206 10^3/uL (130-400); RBC 2.51 10^6/uL (3.93-5.22); RDW-SD 58.5 fL; WBC 8.89 10^3/uL (4.4-10.8)
[2021-10-10] MEDS: Albuterol/Ipratropium 3 ML UPD VIAL UPD (20:50)
[2021-10-10 21:02] LABS: Basophilic Stippling 1+; Diff Comment RBC Morph Reviewed; Macrocytosis 2+; Polychromasia Present
[2021-10-10 21:03] LABS: Poikilocytes 1+
[2021-10-10 21:07] LABS: PTT Activated 21.6 sec (21.0-27.5); Prothrombin Time 9.8 sec (9.3-11.0)
[2021-10-10 21:08] LABS: ALT 17 U/L (14-59); AST 9 U/L (15-37); Albumin 4.1 g/dL (3.4-5.0); Alkaline Phosphatase 43 U/L (46-116); Anion Gap 9.3 mmol/L (3-11); BUN 36 mg/dL (7-18); Bilirubin, Total 0.2 mg/dL (0.2-1.0); CO2 31.7 mmol/L (21.0-32.0); CREATININE 1.4 mg/dL (0.55-1.02); Calcium 9.3 mg/dL (8.5-10.1); Chloride 102 mmol/L (98-107); Estimated GFR 35.82 (mL/min/1.73m2); Glucose 190 mg/dL (74-106); Magnesium 2.7 mg/dL (1.8-2.4); NT-proBNP 927 pg/mL (<300); Potassium 3.4 mmol/L (3.5-5.1); Sodium 143 mmol/L (136-145); TSH (W/Ref FT4) 0.27 uIU/mL (0.36-3.74); Total Protein 6.1 g/dL (6.4-8.2)
[2021-10-10 21:26] LABS: Troponin I < 0.05 ng/mL (<0.06)
[2021-10-10 21:40] LABS: COVID-19 PCR Negative (Negative)
[2021-10-10] MEDS: Omnipaque 350 MG/ML 100 ML BTL IJ (21:43)
[2021-10-10] MEDS: Normal Saline Flush 10 ML SYR IVP (21:43)
[2021-10-10 21:44] LABS: FREE T4 0.95 ng/dL (0.76-1.46)
[2021-10-10] MEDS: Normal Saline - Diluent 50 ML VIAL IV (21:44)
--- NOTE | 2021-10-10 22:26 | DI.VRAD_ITS ---
PROCEDURE INFORMATION: Exam: CTA Chest With Contrast Exam date and time: 10/10/2021 8:05 PM Age: 86 years old Clinical indication: Other: SOB TECHNIQUE: Imaging protocol: Computed tomographic angiography of the chest with contrast. 3D rendering (Not supervised by radiologist): MIP and/or 3D reconstructed images were created by the technologist. COMPARISON: CR XR CHEST 2V PA LATERAL 09/18/2020 2:46 PM FINDINGS: Pulmonary arteries: Slightly limited by respiratory motion but no definite pulmonary embolus. Aorta: The intrathoracic aorta is mildly ectatic. There is a focal intimal ulceration with an associated 1.1 cm AP x 1.6 cm ML x 2.9 cm CC saccular aneurysm arising from the posterior wall of the descending intrathoracic aorta as seen on series 15, image [id number] and series 17, image 39. This contains mural thrombus. There is no periaortic hematoma or stranding. Lungs: There is chronic biapical pleuroparenchymal scarring with calcification. There is mild generalized bronchiectasis. There is more prominent moderate bronchiectasis within the right middle lobe and lingula. There are mild patchy infiltrates within the lower lobes. Pleural spaces: There is no pneumothorax or pleural effusion. Heart: The cardiac chambers are moderately enlarged. Lymph nodes: No pathologic lymphadenopathy identified. Stomach and bowel: There is an indeterminate curvilinear calcification within the stomach which may be a calcified suture line. A foreign body is not excluded entirely. Historical correlation advised. Bones/joints: The bones are diffusely demineralized limiting detail. There are chronic appearing compression fractures of T2, T3, T4, T6, T7, T8, T9, T10, T11, T12 and L1 to varying degrees. I suspect these are all chronic insufficiency fractures. If there is concern for an acute insufficiency fracture further evaluation with a nonemergent MRI might be considered. I do not see significant associated posterior retropulsion into the spinal canal. There is a chronic appearing fracture deformity of the lower sternum. There is kyphosis of the thoracic spine. Soft tissues: Unremarkable. IMPRESSION: 1. Limited by respiratory motion but no definite pulmonary embolus. 2. Ectatic intrathoracic aorta with a focal intimal ulceration and saccular aneurysm along the posterior wall of the descending aorta as detailed above. 3. Multifocal bronchiectasis most severe in the right middle lobe and lingula. 4. Mild patchy bilateral lower lobe infiltrates. 5. Chronic biapical pleuroparenchymal scarring. 6. Moderate multichamber cardiomegaly. 7. Curvilinear calcification within the gastric wall which may be a calcified suture line. A foreign body is not excluded entirely. Historical correlation advised. 8. Severe osseous demineralization with numerous chronic appearing compression fractures within the thoracic and upper lumbar spine which I suspect are insufficiency fractures. If there is concern for an acute component further evaluation with a nonemergent MRI of the thoracic spine might be considered. Dictated and Authenticated by: Manny Cano MD. Ordering:STANLEY Cavazos MD
[2021-10-10] MEDS: DOXYCYCLINE 100 MG in Normal Saline 100 ML IVPB (22:45)
[2021-10-10] MEDS: Hydrocortisone SOD SUC. 100 MG VIAL IVP (23:00)
[2021-10-10 23:09] LABS: Bilirubin Negative (Negative); Blood Trace-lysed (Negative); Clarity Cloudy (Clear); Glucose Negative (Negative); Ketones Negative (Negative); Leukocyte Esterase Trace (Negative); Nitrite Positive (Negative); Specific Gravity 1.025 (1.005-1.025); Urobilinogen 0.2 EU/dL (Up TO 0.2)
[2021-10-10] MEDS: cefTRIAXone 2 GM/50 ML BAG IVPB (23:15)
[2021-10-10 23:19] LABS: Bacteria Many HPF (Negative); C & S Indicated? Yes; Casts Negative LPF (Negative); Crystals Negative HPF (Negative); Epithelial Cells Negative HPF (Negative); Mucus Negative (Negative); Other Cells Moderate Renal (Negative)
[2021-10-10 23:21] LABS: Troponin I < 0.05 ng/mL (<0.06)
[2021-10-11] VITALS: BP 125/68; PULSE 57; RESP 18; TEMP 36.6; O2SAT 96
[2021-10-11] MEDS: HYDROmorphone 2 MG TAB PO ×2 (00:41→06:08)
[2021-10-11] MEDS: Apixaban 5 MG TAB PO ×3 (00:41→21:32)
[2021-10-11 03:19] VITALS: BP 128/68; PULSE 60; RESP 18; TEMP 36.5; O2SAT 96
--- NOTE | 2021-10-11 03:35 | W.PM.HP.N ---
Date of service: 10/11/21 Time of Service: 03:35 Assessment and Plan Assessment and plan (1) Pneumonia: Status: Acute Assessment and plan: present on admission. H/o both aspiration and pseudomonas PNA. No known h/o MRSA. Will check MRSA nares, sputum C&S. For now, treat with empiric doxycycline/zosyn. Obtain swallow eval. (2) Myasthenia gravis: Status: Chronic Assessment and plan: On plasmaphoresis and solaris Q2 weeks as well as on steroids. The frequency of plasmaphoresis is about to be increased, as per the patient. It is possible that some of the weakness that the patient has had at home is due to MG, but adrenal insufficiency should also be considered. The patient would benefit from stress dose steroids. (3) Acute adrenal insufficiency: Status: Acute Assessment and plan: As above (4) Atrial fibrillation: Status: Chronic Assessment and plan: Rates have been controlled. Continue home therapy. Repeat echo. (5) COPD (chronic obstructive pulmonary disease): Status: Chronic Assessment and plan: In mild acute exacerbation. Tx with abx, stress dose steroids, nebs. Monitor for hypoxia which, while reported in the ED, is not clearly documented where I can verify it. (6) Descending aortic aneurysm: Status: Chronic Assessment and plan: While this diagnosis is new to us, the imaging findings are of a chronic aneurysm. This will need to be reviewed by vascular surgery. I have requested that the images be sent to [facility] for vascular surgery review. I likely appropriate for vascular surgery follow up as outpatient. (7) Pulmonary arterial hypertension: Status: Chronic Assessment and plan: Carefully monitor volumen status. (8) DVT prophylaxis: Status: Acute Assessment and plan: On therapeutic apixaban (9) Discharge planning issues: Status: Acute Assessment and plan: Full code C/s speech, physical therapy and occupational therapy History of Present Illness History of Present Illness Chief Complaint: Weakness, shortness of breath Narrative: Ms Carpio is an 86 year old female with PMHx of myasthenia gravis, receiving plasmaphoresis Q2 wks, last two days prior to presentation, as well as on Solaris therapy, last on 10/09/21, who is also steroid-dependent, also has a h/o non-oxygen dependent COPD, Afib on anticoagulation with apixaban, CHFpEF as per echo in 01/2020, prior h/o pseudomonas pneumonia as well as aspiration pneumonitis, who presented to [facility] ED on 02/07/21 c/o shortness of breath and weakness. The patient specifically denies cough. Shortness of breath and weakness have been going on for about two weeks, but have gotten much worse over the last two days. Weakness does not feel like her MG weakness. The patient has been able to ambulate with a walker, but has not been able to go farther than to the bathroom and back to her chair without getting severely weak. She endorses some difficulty swallowing, which got better after her plasmaphoresis on Thursday. She has been managing this with soft foods at home. She tested negative for COVID-19. She is saturating 96 % on RA at rest, though per the ED provider she did desaturate to the 80s while in the ED. Her ED workup revealed a patchy bilateral lower lobe pneumonia as well as multifocal bronchiectasis. 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 The patient was initiated on empiric ceftriaxone/doxycycline as well as stress dose steroids and hospitalist admission was requested. Her NIF was - 28, which is her baseline. Of note, it has just been decided that the frequency of her plasmaphoresis will need to be increased to Q1week. 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 Gastrostomy Tube Placement H/O wisdom tooth extraction S/P appendectomy Family History Father Heart disease Mother Cancer pancreatic Social History Smoking/Tobacco Use Status: Never Smoking risk assessment performed?: Yes Alcohol Intake: current Alcohol Intake frequency: a few times a week Alcohol type: hard liquor Drug use: Never Substance use type: does not use Do you feel safe at home: Yes Do you feel safe in your relationship?: Yes Additional Social history: live with son and his family Meds Allergies and Home Medications Allergies Allergy/AdvReac Type Severity Reaction Status Date / Time FAHAD Inhibitors Allergy Unverified 10/10/21 20:02 albuterol Allergy Unverified 10/10/21 20:02 Beta-Blockers Allergy Unverified 10/10/21 20:02 (Beta-Adrenergic Bloc Sulfa (Sulfonamide Allergy Hives Verified 10/10/21 20:02 Antibiotics) sulfamethoxazole Allergy Unverified 10/10/21 20:02 [From Bactrim] trimethoprim [From Bactrim] Allergy Unverified 10/10/21 20:02 Home Medications Medication Instructions Recorded Confirmed Type Eliquis 5 mg PO BID 07/08/17 10/10/21 History folic acid 1 mg PO DAILY 07/08/17 10/10/21 History gabapentin 600 mg PO BID 07/08/17 10/10/21 History cyanocobalamin (vitamin B-12) 1 ea IM .QMONTH 07/27/17 10/10/21 History ergocalciferol (vitamin D2) 50,000 units PO .QOWEEK 07/27/17 10/10/21 History [Vitamin D2] bisacodyl 1 ea MT PRN PRN 09/26/17 09/19/20 History sennosides 8.6 mg tablet 8.6 mg PO BID PRN 08/02/18 10/10/21 History methadone [Dolophine] 5 mg PO BID 08/06/18 10/10/21 History acetaminophen [Tylenol] 650 mg PO Q4H PRN PRN #30 tab 08/10/18 09/19/20 Rx multivitamin [Multiple Vitamins] 1 tab PO DAILY 08/16/18 10/10/21 History hydromorphone [Dilaudid] 2 mg PO Q4H PRN PRN MDD 6 02/04/20 10/10/21 History melatonin 10 mg PO HS 02/04/20 10/10/21 History ferrous sulfate 325 mg PO DAILY #0 tab 02/12/20 10/10/21 Rx acidophilus-pectin, citrus 1 cap PO AC #0 tab 02/15/20 09/19/20 Rx furosemide [Lasix] 40 mg PO QAM 09/18/20 10/10/21 History lidocaine 1 patch TOPICAL DAILY PRN 09/19/20 10/10/21 History prednisone 20 mg PO DAILY 09/19/20 10/10/21 History albuterol sulfate [ProAir HFA] 2 puff INHALATION QID #6.7 g 09/20/20 Rx Exam Narrative Exam Narrative: General: Pleasant frail elderly female who is somnolent, wakes up easily, no dyspnea/tachypnea/cyanosis on RA Neurological: A&Ox3, does appear generally weak, but no focal deficits observed Psychiatric: Appropriate speech pattern/content Skin: Visible skin intact HEENT: Atraumatic, normocephalic, EOMI, MMM, clear oropharynx, no submandibular or cervical lymphadenopathy, no goiter or JVD Cardiovascular: irregularly irregular rhythm, no m/r/g Lungs: CTAB/diminished breath sounds Gastrointestinal: soft, nontender, nondistended Genitourinary: deferred Extremities: 1+ BLE edema at the feet and no edema at the ankles Results Imaging Additional studies: CTA chest: 1. Limited by respiratory motion but no definite pulmonary embolus. 2. Ectatic intrathoracic aorta with a focal intimal ulceration and saccular aneurysm along the posterior wall of the descending aorta as detailed above. 3. Multifocal bronchiectasis most severe in the right middle lobe and lingula. 4. Mild patchy bilateral lower lobe infiltrates. 5. Chronic biapical pleuroparenchymal scarring. 6. Moderate multichamber cardiomegaly. 7. Curvilinear calcification within the gastric wall which may be a calcified suture line. A foreign body is not excluded entirely. Historical correlation advised. 8. Severe osseous demineralization with numerous chronic appearing compression fractures within the thoracic and upper lumbar spine which I suspect are insufficiency fractures. If there is concern for an acute component further evaluation with a nonemergent MRI of the thoracic spine might be considered. EKG: HR 91, Afib, no acute ischemia Labs Result diagrams: 10/10/21 20:30 10/10/21 20:30 Labs: Laboratory Results - last 24 hr 10/10/21 10/10/21 10/10/21 20:30 20:30 20:30 WBC 8.89 RBC 2.51 L Hgb 8.1 L Hct 26.8 L MCV 106.8 H MCH 32.3 MCHC 30.2 L RDW 15.0 H Plt Count 206 MPV 10.1 Immature Gran % 0.9 Neutrophils % 91.0 Lymphocytes % 2.9 Monocytes % 5.2 Eosinophils % 0.0 Basophils % 0.0 Nucleated RBC % 0 Absolute Neutrophils 8.09 H Absolute Lymphocytes 0.26 L Absolute Monocytes 0.46 Absolute Eosinophils 0.00 Absolute Basophils 0.00 RBC Morphology See Below Polychromasia Present Poikilocytosis 1+ Basophilic Stippling 1+ Macrocytosis 2+ PT INR APTT Sodium 143 Potassium 3.4 L Chloride 102 Carbon Dioxide 31.7 Anion Gap 9.3 BUN 36 H Creatinine 1.4 H Estimated GFR/1.73 m2 35.82 Glucose 190 H Calcium 9.3 Magnesium 2.7 H Total Bilirubin 0.2 AST 9 L ALT 17 Alkaline Phosphatase 43 L Troponin I < 0.05 NT-Pro-B Natriuret Pep 927 H Total Protein 6.1 L Albumin 4.1 TSH 0.27 L Free T4 0.95 Urine Color Urine Clarity Urine pH Ur Specific [place] Urine Protein Urine Ketones Urine Blood Urine Nitrite Urine Bilirubin Urine Urobilinogen Ur Leukocyte Esterase Urine RBC Urine WBC Ur Epithelial Cells Urine Crystals Urine Bacteria Urine Casts Urine Mucus Urine Other Ur Culture Indicated? Urine Glucose COVID-19 Source Nasal/Nares SARS-CoV-2 (PCR) Negative 10/10/21 10/10/21 10/10/21 20:30 21:38 22:55 WBC RBC Hgb Hct MCV MCH MCHC RDW Plt Count MPV Immature Gran % Neutrophils % Lymphocytes % Monocytes % Eosinophils % Basophils % Nucleated RBC % Absolute Neutrophils Absolute Lymphocytes Absolute Monocytes Absolute Eosinophils Absolute Basophils RBC Morphology Polychromasia Poikilocytosis Basophilic Stippling Macrocytosis PT 9.8 INR 1.0 APTT 21.6 Sodium Potassium Chloride Carbon Dioxide Anion Gap BUN Creatinine Estimated GFR/1.73 m2 Glucose Calcium Magnesium Total Bilirubin AST ALT Alkaline Phosphatase Troponin I < 0.05 NT-Pro-B Natriuret Pep Total Protein Albumin TSH Free T4 Urine Color Yellow Urine Clarity Cloudy Urine pH 6.0 Ur Specific [place] 1.025 Urine Protein Negative Urine Ketones Negative Urine Blood Trace-lysed H Urine Nitrite Positive H Urine Bilirubin Negative Urine Urobilinogen 0.2 Ur Leukocyte Esterase Trace H Urine RBC 5-10 H Urine WBC 5-10 Ur Epithelial Cells Negative Urine Crystals Negative Urine Bacteria Many Urine Casts Negative Urine Mucus Negative Urine Other Moderate Renal Ur Culture Indicated? Yes Urine Glucose Negative COVID-19 Source SARS-CoV-2 (PCR) Last Vital Signs Temp 36.5 C 10/11/21 03:19 Pulse 60 10/11/21 03:19 Resp 18 10/11/21 03:19 BP 128/68 10/11/21 03:19 Pulse Ox 96 10/11/21 03:19
[2021-10-11] MEDS: PIPERACILLIN/TAZO 3.375 GM in Normal Saline 50 ML IVPB (05:09)
[2021-10-11] MEDS: Potassium Chloride 20 MEQ TABCR 40 MEQ PO (05:29)
[2021-10-11] MEDS: Hydrocortisone SOD SUC. 100 MG VIAL 50 MG IVP (06:09)
[2021-10-11 07:09] LABS: Abs Immature Grans 0.08 10^3/uL (0.0-0.06); Absolute Monocyte Count 0.28 10^3/uL (0.1-0.8); Absolute Neutrophil Count 8.66 10^3/uL (1.2-6.7); HCT 25.7 % (36.0-46.0); HGB 7.9 g/dL (11.2-15.7); Immature Grans % 0.9; Lymphocytes % 3.2; MCH 32.9 pg (27.0-33.0); MCHC 30.7 % (32.0-36.0); MCV 107.1 fL (80-95); MPV 10.3 fL (8.0-11.0); Neutrophils % 92.9; Nucleated RBC 0 %; Platelet Count 209 10^3/uL (130-400); RDW 15.2 % (11.7-14.6); RDW-SD 59.8 fL; WBC 9.32 10^3/uL (4.4-10.8)
[2021-10-11 07:37] LABS: BUN 31 mg/dL (7-18); CO2 30.2 mmol/L (21.0-32.0); CREATININE 1.5 mg/dL (0.55-1.02); Calcium 8.9 mg/dL (8.5-10.1); Estimated GFR 33.08 (mL/min/1.73m2); Glucose 147 mg/dL (74-106); Magnesium 2.2 mg/dL (1.8-2.4); Potassium 4.6 mmol/L (3.5-5.1)
[2021-10-11 07:53] LABS: Anion Gap 8.8 mmol/L (3-11); Chloride 101 mmol/L (98-107); Sodium 140 mmol/L (136-145)
[2021-10-11 07:54] VITALS: BP 112/68; PULSE 87; RESP 20; TEMP 36.7; O2SAT 95
--- NOTE | 2021-10-11 08:00 | DI.US_ITS ---
APPROVED REPORT EXAM: Comprehensive 2D, Doppler, and color-flow Echocardiogram Patient Location: In-Patient Room/Bed: [address] [employer] Supervisor: Anne Haney RDCS (AE) Indications: CHF Other Information Study Quality: Fair. Technically limited study due to body habitus, inability to position patient. Conclusion Normal left ventricular wall thickness and chamber size. Estimated ejection fraction is 55%. There are no segmental wall motion abnormalities Normal right ventricular size and systolic function The right atrium is not well visualized. The left atrium is normal in size Aortic valve is trileaflet with trace to mild regurgitation Structurally normal mitral valve with mild regurgitation The tricuspid valve is not well visualized. There is mild to moderate regurgitation. Estimated righ t ventricular systolic pressure is 28 mmHg Normal pulmonic valve with trace regurgitation Dilated ascending aorta measuring 3.38 cm Wall motion Left Ventricle The left ventricle is normal size. The left ventricular systolic function is normal. The left ventric ular ejection fraction is within the normal range. There is normal left ventricular wall thickness. T here is normal LV segmental wall motion. There is no ventricular septal defect visualized. LVEF is 55 %. Right Ventricle The right ventricle is normal size. The right ventricular systolic function is normal. The RVSP is 28 .1 mmHg. Atria The left atrium size is normal. Right atrium is not well visualized. The interatrial septum is intact with no evidence for an atrial septal defect. Aortic Valve The aortic valve is normal in structure. Aortic valve is trileaflet. There is no aortic valvular sten osis. Trace to mild aortic regurgitation. Mitral Valve The mitral valve is normal in structure. No evidence of mitral valve stenosis. Mild mitral regurgitat ion. Tricuspid Valve Tricuspid valve is not well visualized. There is no tricuspid valve stenosis. Mild to moderate tricus pid regurgitation. Pulmonic Valve The pulmonary valve is normal in structure. There is no pulmonic valvular stenosis. Trace pulmonic re gurgitation. Great Vessels The aortic root is normal in size. The ascending aorta is mildly dilated. Aortic arch is not well vis ualized. The IVC was not visualized. Pericardium There is no pericardial effusion. 2D Dimensions IVSD d PLAX 0.98 cm F: 0.6-1.0 LV Vol A2C d MOD 50.8 mL LVPW d PLAX 0.99 cm F: 0.6 - 1.0 LV Vol A4C d MOD 73.6 mL LVID d PLAX 4.02 cm F: 3.8 - 5.2 LA vol/ BSA A2C s A-L 13.6 mL/m2 LVDs 2.90 cm F: 2.2 - 3.5 LA Area A2C s MOD 12.74 cm2 Ao Root d 3.22 cm F: 2.7 - 3.3 LV EF A4C MOD 55.3 % Ao Asc Diam d 3.38 cm F: 2.3 - 3.1 LV EF A2C MOD 54.5 % LV EF Teichholz 54.3 % LV EF Biplane MOD 54.3 % LVEF (Arellano's) 54.32 % F: 54 - 74 SV 33.90 mL LV Volume 45.24 mL F: 46 - 106 SV Index 15.24 mL/m2 LV Volume Index 20.37 mL/m2 F: 29 - 61 LV Vol Biplane MOD 62.4 mL FS 27.70 % M-Mode TAPSE 2.01 cm (M/F) >1.7 LV Diastology MV E' medial 0.067 (>0.07 m/s) E/A Ratio 0.6 LV E/e MED 7.85 (<14) MV E Vmax 0.53 (0.4-1.3 m/s) MV E' lateral 0.074 (>0.1 m/s) MV A Vmax 0.90 (0.4-1.3 m/s) LV E/e LAT 7.10 (<14) MV E/A Ratio 0.59 MV E/E' medial 7.87 MV E/E' lateral 7.14 Aortic Valve LVOT Area 2.67 cm2 AoV Area Vmax 2.00 cm2 LVOT Vmax 0.98 m/s AoV Area/ BSA (Vmax) 0.90 cm2/m2 LVOT Mean Yevgeniy. 0.66 m/s ALYSSA Mean Yevgeniy. 2.07 cm2 LVOT Peak Grad 3.8 mmHg ALYSSA Mean Yevgeniy. Index 0.93 cm2/m2 LVOT Mean Grad 2.0 mmHg AR DT 2020 msec LVOT VTI 0.212 m AR PHT 586 msec LVOT Diam s 1.80 cm AoV Vmax 1.31 m/s Velocity Ratio 0.74 AoV Mean Yevgeniy. 0.86 m/s AoV Peak Grad 6.8 mmHg LVOT SV 56.56 mL AoV Mean Grad 3.3 mmHg AoV VTI 0.244 m AoV Area VTI 2.31 cm2 AoV Area/ BSA (VTI) 1.04 cm/m2 Mitral Valve MV DT 225 (160-240 msec) MR Vmax 5.12 m/s MV PHT 65 msec MR VTI 1.391 m MV Area PHT 3.37 cm2 MR Peak Grad 104.7 mmHg MV VTI 0.213 m MR Mean Grad 86.4 mmHg MV VTI Annulus 0.221 m MV Area VTI 2.75 (4.0-6.0 cm2) Pulmonary Valve PV Vmax 0.87 (0.5-1.5 m/s) RVOT Peak Gr. 1.19 mmHg PV Peak Grad 3.0 mmHg RVOT Mean Gr. 0.55 mmHg PV Mean Grad 1.5 mmHg RVOT VTI 0.100 m PV VTI 0.156 m RVOT Vmax 0.54 m/s Tricuspid Valve TR Peak Grad 25.0 mmHg TR Vmax 2.50 m/s RA Pressure 3.00 mmHg RVSP (TR) 28.1 mmHg
[2021-10-11] MEDS: Gabapentin 300 MG CAP 600 MG PO ×2 (08:23→21:33)
[2021-10-11] MEDS: Methadone 5 MG TAB PO ×2 (08:23→21:32)
[2021-10-11] MEDS: Ferrous Sulfate 325 MG TAB PO (08:24)
[2021-10-11] MEDS: Furosemide 20 MG TAB 40 MG PO (08:24)
[2021-10-11] MEDS: Normal Saline Flush 10 ML SYR IVP ×2 (08:24→16:24)
[2021-10-11] MEDS: Multivitamin TAB 1 TAB PO (08:24)
[2021-10-11] MEDS: Famotidine 20 MG TAB PO (08:24)
[2021-10-11] MEDS: Folic Acid 1 MG TAB PO (08:24)
[2021-10-11] MEDS: DOXYCYCLINE 100 MG in Normal Saline 100 ML IVPB ×2 (08:25→21:36)
[2021-10-11] MEDS: Lidocaine 5% Patch 1 PATCH TP (08:34)
[2021-10-11 11:02] VITALS: BP 106/56; PULSE 92; RESP 18; TEMP 35.4; O2SAT 94
[2021-10-11] MEDS: predniSONE 10 MG TAB 20 MG PO (12:10)
--- NOTE | 2021-10-11 13:39 | STREC_ITS ---
Date of service: 10/11/21 Time of Service: 13:39 Speech Therapy Recommendations Report ST Recommendations: HPI: Pt is an 86 year old F admitted with weakness and increased SOB. PMHx significant for myasthenia gravis (plasmapheresis bi-weekly and on sterioids), aspiration pna, eating disorder, CHFpEF , COPD (non-oxygen dependent), Afib, and hx of dysphagia. She was hospitalized here in late 2019 for weakness and hypoxia as well as in early 2019 for septic shock and adrenal insufficiency 2/2 pneumonia with possible aspiration component. At that time she was evaluated by [employer] and found to have no s/sx aspiration and reported minimal mealtime fatigue 2/2 MG, and was recommended for regular/thin liquids diet. [employer] RECOMMENDATIONS ? based on chart review and RN telephone report. Chart review performed. Patient is at heightened risk for aspiration-related pulmonary complication, given acute on chronic weakness/deconditioning and increased WOB in setting of chronic MG, COPD, and history of aspiration pn eumonias/pneumonitis. Given recent need for increased frequency of myasthenia gravis treatment/management with plasmapheresis, as well as acute-on chronic weakness and poor pulmonary function, recommend conservative diet consistency until patient can be seen by [employer]. Soft/bite sized or minced/moist diet would minimize within-meal fatigue as well as reduce work of breathing and mitigate risk of as piration/choking due to both weakness as well as potential poor coordination of respiration and deglutition. Do not recommend to thicken liquids without [employer] evaluation at this time. Until [employer] can evaluation occurs, oral care and following general aspiration precautions & strategies will be paramount in minimizing further risk. Pending mental status, consider providing total vs intermittent supervision with mealtimes in order to ensure manageable WOB as well as ensure adherence to safe swallow strategies. Consider MBS next week if patient still admitted, or on outpatient basis given documented hx of dysphagia with suspected aspiration. Provided education to RN via telephone re: anatomy/physiology of swallowing mechanism and impact of respiratory function, overt s/sx to monitor for re: potential aspiration of food liquids, recommendations for improved oral care, relationship between respiratory function changes and deglutition, and recommended swallow strategies. Diet Texture Modification(s): IDDSI Level(s) 6-Soft/Bite sized, consider 5-Minced/Moist if patient fatigue or WOB increases notably. 0-Thin Liquids Medication Intake: As tolerated ? may try whole with puree or crushed (as allowed pharmaceutically) with puree if patient has difficulty taking meds with thin liquids. Alter medications only as advised by MD or Pharmacist RISK MANAGEMENT: -Oral hygiene q4h/every 4 hours and before/after PO intake using friction with toothbrush on all oral structures as tolerated -HOB upright as tolerated; upright for all PO intake. -Encourage physical mobility as tolerated. Strategies/Adaptations/Assistive Equipment: Reduce auditory and/or visual distractions when eating Provide verbal and/or visual cues to use recommended strategies PRN Small sips and bites when eating Slow rate of intake and breathing breaks Alternate intake of liquids and solids If patient complains of fatigue, consider small+frequent meals throughout day Level of Assistance/Supervision: Pending mental status ? RN/MD discretion. PO intake only when awake/alert Posture/Positioning Needs: Maintain upright position at least 30 minutes after meals PLAN: [employer] to assess Thursday. Christa Serra Speech Language Pathologist Coding
--- NOTE | 2021-10-11 13:41 | INITIAL_ITS ---
- If Service Date Differs Date of service: 10/11/21 Time of Service: 13:41 Care Management Initial Assess REASON FOR HOSPITALIZATION:: Pneumonia PAST MEDICAL HISTORY/PAST SURGICAL HISTORY:: Medical History. Aspiration pneumonia. Atrial fibrillation. B12 deficiency. Cardiomyopathy. Echo 12/10/2018: EF 60-65%, up from 35% previously; does have diastolic dysfunction. CHF (congestive heart failure). Chronic constipation. Chronic insomnia. Chronic pain. on methadone therapy. Compression fracture of spine. Depression. Dysphagia. 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 Hx of deep venous thrombosis. Lumbago. Macrocytic anemia. Malnutrition. Myasthenia gravis. Osteoporosis. Peripheral neuropathic pain. Post herpetic neuralgia. Pulmonary arterial hypertension. PA pressure 35-40 mm Hg. Sacral decubitus ulcer, stage IV. Surgical History. Abdominal fistula (08/17/18). repair by Dr Elizalde. AV fistula. RUE. Gastrostomy complication (08/17/18). gastric enteric fistula repair by Dr Elizalde. Gastrostomy infection (08/10/18). Dr Elizalde, excised tissue at old g-tube site and closed g-tube tract surgically. Gastrostomy Tube Placement. H/O wisdom tooth extraction. S/P appendectomy PREVIOUS FUNCTIONAL STATUS/SOCIAL/FAMILY SUPPORTS:: Tanja lives in [place] with her son, Frankie, and [id number], Werner. Tanja has three additional children: one son in [place], one in [place], and a daughter in [place]. 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 She now occupies her days with [employer], reading, and attending [employer] services. Tanja reports she is independent with her medications and her family help her with bathing, dressing, and meal preparation. She does not drive and relies on [facility] and family for transportation to appointments. CURRENT FUNCTIONAL STATUS:: Tanja was sitting up in bed when CM met with her. She reported that she was feeling ok, but was looking forward to talking to the provider about the results from her echo today. She stated that she worked with PT today, and is hoping to work on getting to the commode, as she has to walk to the bathroom from her bed at home, and she has been dizzy lately. Per PT, she will benefit from PT. CM will continue to follow. ADVANCE DIRECTIVES:: On file; her son, Frankie Carpio, is health care agent. Has patient been provided with info about the portal/API?: Yes Did the patient sign up for the portal?: No CODE STATUS:: Full Code INSURANCE COVERAGE / FINANCIAL ISSUES:: BCBS and Medicare. CURRENT HOME/COMMUNITY SERVICES/EQUIPMENT:: Tanja has Home Health nursing services and she sees a neurologist at [facility]. She utilizes a walker to ambulate at home and has a shower seat. PRIMARY CARE PHYSICIAN:: Maribell Choi MD. POTENTIAL DISCHARGE NEEDS:: Follow up appointment with PCP. PATIENT/FAMILY EDUCATION NEEDS:: Discharge instructions, limitations, and follow up plan of care, including Ask Me Three and self management. ANTICIPATED BARRIERS TO DISCHARGE:: No anticipated barriers at this time. TRANSPORTATION:: Via private vehicle with family. PLAN:: Anticipate Tanja will discharge home with a resumption of Home Health nursing, and the addition of PT when medically cleared by provider. She will follow up with her PCP and discharge plan of care as directed. Tanja will be driven home via private vehicle with family when ready. CM will continue to support patient and discharge planning needs.
--- NOTE | 2021-10-11 15:36 | IN_ITS ---
PT Notes Visit Reasons: CAP,Myasthenia Gravis Inpatient Physical Therapy Evaluation Date: 10/11/21 Referring Doctor: Dr. Parker PT Orders: PT CONSULT: limited ability to ambulate Precautions: contact Patient Profile/Admitting Diagnosis: Patient admitted for medical management of pneumonia, COPD exacerbation, and aortic aneurysm. She has chronic mobility deficits related to myasthenia gravis. 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 Gastrostomy Tube Placement H/O wisdom tooth extraction S/P appendectomy Social History/Home Situation: Patient lives with her son and daughter in law in a private home. States that she walks short distances in the home with a FWW. Current Functional Limitations: States that her mobility has been limited by dizziness for the past several days. She has been walking only very short distances, and had to use the bed fletcher in her room here today, as she did not feel confident that she could get up without severe dizziness. Equipment Owned/DME: FWW Subjective: Tanja states that she is looking forward to getting up and trying to stand again. She got up with nursing to use the commode earlier and was severely dizzy. She states that she has been working with PT at home, and completes a set of standing exercises each day. Objective: General Observation: Resting in bed, no lines. She demonstrates significant thoracic kyphosis and cervical protraction in supine. In sitting position, she deviates into maximal cervical and thoracic flexion, worsening over time. This improves in standing position, with patient able to support her head in cervical extension. Mental Status: A&Ox3. Pleasant and cooperative Pain: denies Vitals: BP checked by nursing just prior to PT session, with nursing reporting normal ranges ROM: Right Upper Extremity: Shoulder flexion to 120 degrees. ER to 45 degrees. Elbow and wrist grossly WFL. Left Upper Extremity: Shoulder flexion to 120 degrees. ER to 45 degrees. Elbow and wrist grossly WFL. Right Lower Extremity: Hip and knee ROM grossly WFL Left Lower Extremity: Hip and knee ROM grossly WFL Cervical motion is limited in all planes. Mild reproduction of dizziness with sustained left cervical rotation. Strength: Right Upper Extremity: Shoulder flexion 4/5. Biceps 4/5. Triceps 4-/5. Dag Sprayer is strong and equal. Left Upper Extremity: Shoulder flexion 4/5. Biceps 4/5. Triceps 4-/5. Dag Sprayer is strong and equal. Right Lower Extremity: Hip flexion 4+/5. Quads 4+/5. HS 4/5. Ankle DF 3/5 or greater. Left Lower Extremity: Hip flexion 4+/5. Quads 4+/5. HS 4/5. Ankle DF 3/5 or greater. Bed Mobility/Transfers: supine-sit: independent sit-supine: independent sit-stand: supervision stand-sit: supervision Gait: Patient unable to ambulate, however, she stands at EOB and completes standing exercises without dizziness. Balance: Static Sitting: fair (increasing kyphosis in sitting position, with need for intermittent posterior support) Dynamic Sitting: poor Static Standing: fair Dynamic Standing: fair Special Tests: Head shakes- no exacerbation of symptoms of dizziness Sustained cervical extension- no reproduction of dizziness Mobility Limitations Standardized Measure [facility]-PAC 6 clicks Basic Mobility Inpatient Short Form: Raw Score: 18 CMS Score: 47% impairment Informed Consent/Education: Patient instructed in purpose of PT consult and plan of care. Assessment: Patient is a 86 year old female referred to physical therapy services with the diagnosis of limited ability to ambulate. Patient presents with clinical signs and symptoms consistent with limited mobility related to acute and chronic medical issues, including pneumonia and COPD exacerbation in the presence of myasthenia gravis. Patient has been experiencing severe dizziness with transfers, and will benefit from short stretches of activity to allow for therapeutic exercise. Patient is at high risk for further loss of mobility, given her advanced age and extensive medical history, along with baseline mobility deficits. She currently demonstrates the following impairment level findings: 1. Postural deficits 2. Decreased LE strength 3. Decreased activity tolerance Impairments are contributing to the following functional limitations: 1. Unable to ambulate household distances 2. Unable to sit unsupported 3. unable to transfer without dizziness Patient is assessed as High 48600 complexity based on the following: History: Patient is an 86 year old female presenting with limited mobility related to a combination of acute and chronic medical issues. She has an extensive medical history as noted above, with baseline mobility issues and history of compression fractures. Examination: functional limitations as noted above Presentation: unstable, with patient continuing to undergo medical workup Decision Making: high complexity Goals: Goals X1 week 1. Supine-Sit : independent 2. Sit-Supine : independent 3. Sit-Stand : independent 4. Stand-Sit : independent 5. Bed-Chair : supervision with FWW 6. Chair-Bed : supervision with FWW 7. Gait : supervision with FWW x 25' Plan of Care/Treatment Plan: 1-2x/day, 7 days/week x 1 week. Plan of care has been reviewed with the [facility] CHAIR providing the service under Physical Therapy direction. Initiate Physical Therapy intervention for strengthening, bed mobility, transfers, gait, stairs, balance training, use of assistive device. DISCHARGE RECOMMENDATIONS: x Home with services : PT TREATMENT CODE/TIME: 33302 (2:50 - 3:15) Shobha Adame, PT, DPT [facility]
--- NOTE | 2021-10-11 17:34 | CHAPLAIN ---
I had a long visit with Tanja this afternoon. 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 She moved to [place] to live with one of her sons, after her . Tanja is a long time [employer] and attends the weekly [employer] [employer] by [employer]. Her son was arriving to visit as I was leaving.
[2021-10-11 19:46] VITALS: BP 128/68; PULSE 73; RESP 18; TEMP 36.8; O2SAT 96
[2021-10-11] MEDS: Melatonin 3 MG TAB 9 MG PO (21:33)
[2021-10-11] MEDS: Patch Removal 1 EACH TP (22:40)
[2021-10-11 23:30] VITALS: BP 124/64; PULSE 85; RESP 17; TEMP 36.7; O2SAT 92
[2021-10-12 03:24] VITALS: BP 127/62; PULSE 85; RESP 17; TEMP 36.5; O2SAT 94
[2021-10-12 07:43] LABS: Abs Immature Grans 0.06 10^3/uL (0.0-0.06); Absolute Basophil Count 0.01 10^3/uL (0.0-0.2); Absolute Eosinophil Count 0.02 10^3/uL (0.0-0.7); Absolute Monocyte Count 0.53 10^3/uL (0.1-0.8); Absolute Neutrophil Count 5.28 10^3/uL (1.2-6.7); Basophils % 0.2; Eosinophils % 0.3; HGB 7.1 g/dL (11.2-15.7); Immature Grans % 0.9; Lymphocytes % 9.2; MCH 32.4 pg (27.0-33.0); MCHC 29.6 % (32.0-36.0); MCV 109.6 fL (80-95); MPV 9.9 fL (8.0-11.0); Monocytes % 8.2; Neutrophils % 81.2; Nucleated RBC 1 %; Platelet Count 179 10^3/uL (130-400); RBC 2.19 10^6/uL (3.93-5.22); RDW 15.4 % (11.7-14.6)
[2021-10-12 07:46] LABS: Anion Gap 5.5 mmol/L (3-11); BUN 28 mg/dL (7-18); CO2 33.5 mmol/L (21.0-32.0); CREATININE 1.5 mg/dL (0.55-1.02); Calcium 8.4 mg/dL (8.5-10.1); Chloride 105 mmol/L (98-107); Estimated GFR 33.08 (mL/min/1.73m2); Glucose 80 mg/dL (74-106); Magnesium 2.4 mg/dL (1.8-2.4); Potassium 3.7 mmol/L (3.5-5.1); Sodium 144 mmol/L (136-145)
[2021-10-12 08:19] VITALS: BP 123/61; PULSE 78; RESP 18; TEMP 36.7; O2SAT 94
[2021-10-12] MEDS: Methadone 5 MG TAB PO ×2 (08:20→20:00)
[2021-10-12] MEDS: Furosemide 20 MG TAB 40 MG PO (08:21)
[2021-10-12] MEDS: Apixaban 5 MG TAB PO (08:21)
[2021-10-12] MEDS: Folic Acid 1 MG TAB PO (08:21)
[2021-10-12] MEDS: predniSONE 10 MG TAB 20 MG PO (08:22)
[2021-10-12] MEDS: Ferrous Sulfate 325 MG TAB PO (08:22)
[2021-10-12] MEDS: Gabapentin 300 MG CAP 600 MG PO ×2 (08:22→20:03)
[2021-10-12] MEDS: DOXYCYCLINE 100 MG in Normal Saline 100 ML IVPB ×2 (08:23→20:02)
[2021-10-12] MEDS: Multivitamin TAB 1 TAB PO (08:23)
[2021-10-12] MEDS: Pantoprazole 40 MG VIAL 80 MG IVP (11:42)
[2021-10-12] MEDS: Lidocaine 5% Patch 1 PATCH TP (11:43)
[2021-10-12] MEDS: Sucralfate 1 GM TAB PO ×3 (11:45→22:11)
--- NOTE | 2021-10-12 12:16 | PT.INTREAT ---
PT Notes Visit Reasons: CAP,Myasthenia Gravis Inpatient Physical Therapy Treatment Note [facility] Date: 10/12/21 SUBJECTIVE: Tanja states that she is struggling with diarrhea this am. She also reports continued dizziness but is willing to try to do PT. OBJECTIVE: [] BED MOBILITY/TRANSFERS pt already up in recliner Sit-stand: S Stand-sit: S GAIT Assistive Device: FWW Weight bearing: FWB Assist: CGA Distance: 20'x2 THEREX: performed a global LE strengthening routine. See flowsheet for details. ASSESSMENT: tolerated session well despite c/o dizziness while seated. The dizziness seemed to subside once on her feet and ambulating. No bouts of diarrhea during session. She was unable to ambulate =further as the dizziness set in and increased after she sat to rest her legs. PLAN: will continue to progress ambulation endurance and functional mobility to her tolerance, following PT POC. TREATMENT CODE/TIME: 20 min beginning at 6007. [id number]
--- NOTE | 2021-10-12 12:56 | W.PM.PROGNOT ---
Date of Service Date of service: 10/12/21 Time of Service: 12:56 Assessment and Plan Assessment and plan (1) GI bleed: Start date: 10/12/21 Start time: 13:13 Status: Chronic Assessment and plan: H&H trending down. Heme stool positive. Patient was suppose to be on 2.5 mg apixaban however she was given 5 mg. This was discontinued as soon as hemoglobin seen at 7.1 will recheck and transfuse if under 7, patient is agreeable Clear liquids, denies abd pain PPI BID, carafate. Will hold off on surgery consult at this time. Qualifiers: GI bleed type/associated pathology: melena Qualified Code(s): K92.1 - Melena (2) UTI (urinary tract infection): Start date: 10/12/21 Start time: 13:25 Status: Acute Assessment and plan: Gram positive rods growing 100,000 awaiting sensitivities could also be the reason she is having dizziness after urination. On zosyn and doxy continue Awaiting sensitivities. BC NGTD Qualifiers: Urinary tract infection type: site unspecified Hematuria presence: with hematuria Qualified Code(s): N39.0 - Urinary tract infection, site not specified; R31.9 - Hematuria, unspecified (3) Dependent edema: Start date: 10/12/21 Start time: 13:34 Status: Acute Assessment and plan: Likely due to venous insufficiency. Teds ordered. Encouraged to elevate legs when sitting. (4) Pneumonia: Start date: 10/12/21 Start time: 13:03 Status: Acute Assessment and plan: present on admission. H/o both aspiration and pseudomonas PNA. No known h/o MRSA. Will check MRSA nares, sputum C&S. For now, treat with empiric doxycycline/zosyn. Obtain swallow eval. Qualifiers: Pneumonia type: due to unspecified organism Laterality: right Lung location: lower lobe of lung Qualified Code(s): J18.9 - Pneumonia, unspecified organism (5) Myasthenia gravis: Start date: 10/12/21 Start time: 13:28 Status: Chronic Assessment and plan: On plasmaphoresis and solaris Q2 weeks as well as on steroids. The frequency of plasmaphoresis is about to be increased, as per the patient. She is due for an exchange on Thursday. Her neurologist will need to be called on Thursday to discuss if she should have the plasmaphoresis exchange if so she will need a down and back to [place]. CM aware. (6) Acute adrenal insufficiency: Start date: 10/12/21 Start time: 13:16 Status: Ruled-out Assessment and plan: On admission electrolytes normal, with exception of potassium but she is on diuretic. Hydrocortisone dcd and prednisone restarted, she feels improving from admission (7) Atrial fibrillation: Start date: 10/12/21 Start time: 13:18 Status: Chronic Assessment and plan: Rates have been controlled. Continue home therapy. Repeat echo. see note for echo results Qualifiers: Atrial fibrillation type: unspecified chronic Qualified Code(s): I48.20 - Chronic atrial fibrillation, unspecified (8) COPD (chronic obstructive pulmonary disease): Start date: 10/12/21 Start time: 13:07 Status: Chronic Assessment and plan: Improved, not exacerbated at this time Tx with abx, nebs. Not requiring oxygen Qualifiers: COPD type: unspecified COPD Qualified Code(s): J44.9 - Chronic obstructive pulmonary disease, unspecified (9) Descending aortic aneurysm: Start date: 10/12/21 Start time: 13:06 Status: Chronic Assessment and plan: While this diagnosis is new to us, the imaging findings are of a chronic aneurysm. This will need to be reviewed by vascular surgery. images have been sent to [facility] for vascular surgery review. appropriate for vascular surgery follow up as outpatient. Maintain BP under 140 Systolic (10) Pulmonary arterial hypertension: Start date: 10/12/21 Start time: 13:02 Status: Ruled-out Assessment and plan: Echo revealed Pulmonary pressures of 28 Lasix cut in half d/t micturation dizziness. (11) DVT prophylaxis: Start date: 10/12/21 Start time: 13:19 Status: Acute Assessment and plan: On therapeutic apixaban (12) Discharge planning issues: Start date: 10/12/21 Start time: 13:34 Status: Acute Assessment and plan: Full code C/s speech, physical therapy and occupational therapy Discussed with Dr. Bell Subjective Subjective Patient reports: no new complaints Interval history since last seen: Patient sitting up in chair. Echo results: Conclusion Normal left ventricular wall thickness and chamber size. Estimated ejection fraction is 55%. There are no segmental wall motion abnormalities Normal right ventricular size and systolic function The right atrium is not well visualized. The left atrium is normal in size Aortic valve is trileaflet with trace to mild regurgitation Structurally normal mitral valve with mild regurgitation The tricuspid valve is not well visualized. There is mild to moderate regurgitation. Estimated right ventricular systolic pressure is 28 mmHg Normal pulmonic valve with trace regurgitation Dilated ascending aorta measuring 3.38 cm She states her legs swell but this is not a cardiac issue. Will order Teds, she also c/o dizziness after urination, will cut lasix in half. Exam Narrative Exam Narrative: General: Pleasant frail elderly female who is talkative sitting up in chair. no dyspnea/tachypnea/cyanosis on RA Neurological: A&Ox3, , but no focal deficits observed Psychiatric: Appropriate speech pattern/content Skin: Visible skin intact HEENT: Atraumatic, normocephalic, EOMI, MMM, clear oropharynx, no submandibular or cervical lymphadenopathy, no goiter or JVD Cardiovascular: irregularly irregular rhythm, no m/r/g Lungs: CTAB/diminished breath sounds Gastrointestinal: soft, nontender, nondistended Extremities: 1+ BLE edema at the feet and no edema at the ankles Objective Last Vital Signs Temp 36.7 C 10/12/21 08:19 Pulse 78 10/12/21 08:19 Resp 18 10/12/21 08:19 BP 123/61 10/12/21 08:19 Pulse Ox 94 10/12/21 08:19 Laboratory Results - last 24 hr 10/12/21 10/12/21 07:20 07:20 WBC 6.50 D RBC 2.19 L Hgb 7.1 L Hct 24.0 L MCV 109.6 H MCH 32.4 MCHC 29.6 L RDW 15.4 H Plt Count 179 MPV 9.9 Immature Gran % 0.9 Neutrophils % 81.2 Lymphocytes % 9.2 Monocytes % 8.2 Eosinophils % 0.3 Basophils % 0.2 Nucleated RBC % 1 Absolute Neutrophils 5.28 Absolute Lymphocytes 0.60 L Absolute Monocytes 0.53 Absolute Eosinophils 0.02 Absolute Basophils 0.01 Sodium 144 Potassium 3.7 Chloride 105 Carbon Dioxide 33.5 H Anion Gap 5.5 BUN 28 H Creatinine 1.5 H Estimated GFR/1.73 m2 33.08 Glucose 80 D Calcium 8.4 L Magnesium 2.4
[2021-10-12 15:25] VITALS: BP 125/75; PULSE 85; RESP 16; TEMP 36.4; O2SAT 95
[2021-10-12] MEDS: Normal Saline Flush 10 ML SYR IVP ×2 (16:23→20:01)
[2021-10-12 19:48] VITALS: BP 128/65; PULSE 74; RESP 16; TEMP 36.4; O2SAT 96
[2021-10-12] MEDS: Pantoprazole 40 MG VIAL IVP (20:01)
[2021-10-12] MEDS: Patch Removal 1 EACH TP (20:03)
[2021-10-12] MEDS: Melatonin 3 MG TAB 9 MG PO (22:11)
[2021-10-12 23:18] VITALS: BP 119/52; PULSE 75; RESP 16; TEMP 36.2; O2SAT 95
[2021-10-13 03:41] VITALS: BP 126/70; PULSE 68; RESP 18; TEMP 36.5; O2SAT 96
[2021-10-13 07:06] LABS: Abs Immature Grans 0.05 10^3/uL (0.0-0.06); Absolute Basophil Count 0.02 10^3/uL (0.0-0.2); Absolute Eosinophil Count 0.07 10^3/uL (0.0-0.7); Absolute Lymphocyte Count 0.63 10^3/uL (1.2-3.4); Absolute Monocyte Count 0.43 10^3/uL (0.1-0.8); Absolute Neutrophil Count 4.29 10^3/uL (1.2-6.7); Basophils % 0.4; Eosinophils % 1.3; HCT 24.3 % (36.0-46.0); HGB 7.3 g/dL (11.2-15.7); Immature Grans % 0.9; Lymphocytes % 11.5; MCH 33.3 pg (27.0-33.0); Monocytes % 7.8; Neutrophils % 78.1; Nucleated RBC 0 %; Platelet Count 171 10^3/uL (130-400); RBC 2.19 10^6/uL (3.93-5.22); RDW 15.2 % (11.7-14.6); RDW-SD 61.4 fL; WBC 5.49 10^3/uL (4.4-10.8)
[2021-10-13 07:10] LABS: Anion Gap 6.3 mmol/L (3-11); BUN 25 mg/dL (7-18); CO2 33.7 mmol/L (21.0-32.0); CREATININE 1.6 mg/dL (0.55-1.02); Chloride 103 mmol/L (98-107); Estimated GFR 30.71 (mL/min/1.73m2); Glucose 69 mg/dL (74-106); Magnesium 2.1 mg/dL (1.8-2.4); Potassium 3.2 mmol/L (3.5-5.1); Sodium 143 mmol/L (136-145)
[2021-10-13 08:00] VITALS: BP 113/65; PULSE 67; RESP 16; TEMP 36.6; O2SAT 96
[2021-10-13] MEDS: Normal Saline Flush 10 ML SYR IVP ×2 (08:47→20:31)
[2021-10-13] MEDS: DOXYCYCLINE 100 MG in Normal Saline 100 ML IVPB ×2 (08:47→20:31)
[2021-10-13] MEDS: Methadone 5 MG TAB PO ×2 (08:48→20:30)
[2021-10-13] MEDS: Famotidine 20 MG TAB PO (08:48)
[2021-10-13] MEDS: predniSONE 10 MG TAB 20 MG PO (08:48)
[2021-10-13] MEDS: Ferrous Sulfate 325 MG TAB PO (08:48)
[2021-10-13] MEDS: Multivitamin TAB 1 TAB PO (08:48)
[2021-10-13] MEDS: Furosemide 20 MG TAB PO (08:48)
[2021-10-13] MEDS: Gabapentin 300 MG CAP 600 MG PO ×2 (08:48→20:30)
[2021-10-13] MEDS: Folic Acid 1 MG TAB PO (08:48)
[2021-10-13] MEDS: Pantoprazole 40 MG VIAL IVP ×2 (08:49→20:30)
[2021-10-13] MEDS: Lidocaine 5% Patch 1 PATCH TP (10:06)
[2021-10-13] MEDS: cefTRIAXone 1 GM/50 ML BAG IVPB (10:08)
[2021-10-13] MEDS: Potassium Chloride 20 MEQ TABCR 40 MEQ PO ×2 (10:11→16:19)
[2021-10-13 11:30] VITALS: BP 107/64; PULSE 77; RESP 16; TEMP 36.5; O2SAT 93
--- NOTE | 2021-10-13 11:51 | PT.INNT ---
PT Notes Visit Reasons: CAP,Myasthenia Gravis Tanja politely refused PT this am. Reports extreme nausea and is waiting for antinausea med. She also questions a possibility for blood transfusion. Will check in on her tomorrow.
[2021-10-13 15:30] VITALS: BP 128/74; PULSE 76; RESP 18; TEMP 36.7; O2SAT 98
[2021-10-13] MEDS: Sucralfate 1 GM TAB PO ×2 (16:18→21:07)
--- NOTE | 2021-10-13 16:38 | PGE_ITS ---
Date of Service Date of service: 10/13/21 Time of Service: 16:38 Assessment and Plan Assessment and plan (1) Weakness: Start date: 10/13/21 Start time: 15:00 Status: Acute Assessment and plan: Feeling tired today. Appears dry, LR at 50, hold lasix Hypoglycemic this am, hypokalemic, repleted with orals She states not sleeping given ambien for bedtime (2) GI bleed: Start date: 10/13/21 Start time: 15:00 Status: Chronic Assessment and plan: H&H stable. no transfusion at this time. Heme stool positive. Patient was suppose to be on 2.5 mg apixaban however she was given 5 mg. This was discontinued as soon as hemoglobin seen at 7.1 will recheck and transfuse if under 7, patient is agreeable She is asking for food. Will trial soft diet. If nauseated will change to NPO or clears. PPI BID, carafate, famotidine. continue to monitor H/H Will hold off on surgery consult at this time. Qualifiers: GI bleed type/associated pathology: melena Qualified Code(s): K92.1 - Melena (3) UTI (urinary tract infection): Start date: 10/13/21 Start time: 15:00 Status: Acute Assessment and plan: E. coli growing 100,000 with pansensitives. switched to ceftriaxone zosyn dcd. Likely why dizzy after urination Doxy continued for CAP Awaiting sensitivities. BC NGTD Qualifiers: Urinary tract infection type: site unspecified Hematuria presence: with hematuria Qualified Code(s): N39.0 - Urinary tract infection, site not specified; R31.9 - Hematuria, unspecified (4) Dependent edema: Start date: 10/13/21 Start time: 15:00 Status: Acute Assessment and plan: Likely due to venous insufficiency. Teds ordered. (5) Pneumonia: Start date: 10/13/21 Start time: 15:00 Status: Acute Assessment and plan: present on admission. H/o both aspiration and pseudomonas PNA. No known h/o MRSA. Will check MRSA nares, sputum C&S. Grew e.coli, treating with doxy and ceftrixone. Obtain swallow eval. due for plasma exchange due to this. Qualifiers: Pneumonia type: due to unspecified organism Laterality: right Lung location: lower lobe of lung Qualified Code(s): J18.9 - Pneumonia, unspecified organism (6) Myasthenia gravis: Start date: 10/13/21 Start time: 15:00 Status: Chronic Assessment and plan: On plasmaphoresis and solaris Q2 weeks as well as on steroids. The frequency of plasmaphoresis is about to be increased, as per the patient. She does state that she is ok to skip this week if ok with her neuorlogist because she is not feeling well and if wipes her out. She is due for an exchange on Thursday. Her neurologist will need to be called on Thursday to discuss if she should have the plasmaphoresis exchange if so she will need a down and back to [place]. CM aware. (7) Acute adrenal insufficiency: Start date: 10/13/21 Start time: 15:00 Status: Ruled-out Assessment and plan: Hypoglycemic this am, hypokalemic, feeling weak will give stress dose steroids today due to weakness. (8) Atrial fibrillation: Start date: 10/13/21 Start time: 15:00 Status: Chronic Assessment and plan: Rates have been controlled. Continue home therapy. Repeat echo. see note for echo results Qualifiers: Atrial fibrillation type: unspecified chronic Qualified Code(s): I48.20 - Chronic atrial fibrillation, unspecified (9) COPD (chronic obstructive pulmonary disease): Start date: 10/13/21 Start time: 15:00 Status: Chronic Assessment and plan: Improved, not exacerbated at this time Tx with abx, nebs. Not requiring oxygen Qualifiers: COPD type: unspecified COPD Qualified Code(s): J44.9 - Chronic obstructive pulmonary disease, unspecified (10) Descending aortic aneurysm: Start date: 10/13/21 Start time: 15:00 Status: Chronic Assessment and plan: While this diagnosis is new to us, the imaging findings are of a chronic aneurysm. This will need to be reviewed by vascular surgery. images have been sent to [facility] for vascular surgery review. appropriate for vascular surgery follow up as outpatient. Maintain BP under 140 Systolic per patient BP runs low without medication (11) DVT prophylaxis: Start date: 10/13/21 Start time: 17:06 Status: Acute Assessment and plan: On therapeutic apixaban (12) Discharge planning issues: Start date: 10/13/21 Start time: 17:06 Status: Acute Assessment and plan: Full code C/s speech, physical therapy and occupational therapy Discussed with Dr. Bell Subjective Subjective Patient reports: other Interval history since last seen: Feeling weak tired today. Stating she did sleep much. Her glucose level was low this morning along with potassium level. Will give stress dose steroids. H/H stable. Continue to monitor. Will need to call neuro tomorrow to discuss plasma exchange. Patient states it wipes her out and she is ok to skip the week. Will trial ambien for sleep. Exam Narrative Exam Narrative: General: Pleasant frail elderly female who is tired today. no dyspnea/tachypnea/cyanosis on RA Neurological: A&Ox3, , but no focal deficits observed Psychiatric: Appropriate speech pattern/content Skin: Visible skin intact HEENT: Atraumatic, normocephalic, EOMI, MMM, clear oropharynx, no submandibular or cervical lymphadenopathy, no goiter or JVD Cardiovascular: irregularly irregular rhythm, no m/r/g Lungs: CTAB/diminished breath sounds Gastrointestinal: soft, nontender, nondistended Extremities: 1+ BLE edema at the feet and no edema at the ankles, stockings on bilaterally. Objective Last Vital Signs Temp 36.5 C 10/13/21 11:30 Pulse 77 10/13/21 11:30 Resp 16 10/13/21 11:30 BP 107/64 10/13/21 11:30 Pulse Ox 93 10/13/21 11:30 Laboratory Results - last 24 hr 10/13/21 10/13/21 06:05 06:05 WBC 5.49 RBC 2.19 L Hgb 7.3 L Hct 24.3 L MCV 111.0 H MCH 33.3 H MCHC 30.0 L RDW 15.2 H Plt Count 171 MPV 10.0 Immature Gran % 0.9 Neutrophils % 78.1 Lymphocytes % 11.5 Monocytes % 7.8 Eosinophils % 1.3 Basophils % 0.4 Nucleated RBC % 0 Absolute Neutrophils 4.29 Absolute Lymphocytes 0.63 L Absolute Monocytes 0.43 Absolute Eosinophils 0.07 Absolute Basophils 0.02 Sodium 143 Potassium 3.2 L Chloride 103 Carbon Dioxide 33.7 H Anion Gap 6.3 BUN 25 H Creatinine 1.6 H Estimated GFR/1.73 m2 30.71 Glucose 69 L Calcium 8.0 L Magnesium 2.1
[2021-10-13] MEDS: Hydrocortisone SOD SUC. 100 MG VIAL 50 MG IVP (17:05)
[2021-10-13] MEDS: Lactated Ringers 1,000 ML 50 ML IV (17:06)
[2021-10-13 20:27] VITALS: BP 128/63; PULSE 78; RESP 18; TEMP 36.4; O2SAT 96
[2021-10-13] MEDS: Patch Removal 1 EACH TP (20:34)
[2021-10-13] MEDS: Melatonin 3 MG TAB 9 MG PO (21:07)
[2021-10-13 23:55] VITALS: BP 139/72; PULSE 78; RESP 18; TEMP 36.8; O2SAT 92
[2021-10-14] VITALS (15 sets, daily range): BP systolic 113–150; BP diastolic 57–84; PULSE 70–802; RESP 14–18; TEMP 35.8–36.9; O2SAT 92–98
--- NOTE | 2021-10-14 | DI.RAD_ITS ---
Exam(s) RF MODIFIED SPEECH BA SWALLOW TECHNIQUE: Modified barium swallow was performed in conjunction with speech pathology. CONTRAST MATERIAL: Multiple consistencies of oral barium contrast was administered. COMPARISON: No exams were available for comparison FINDINGS: Note that this is not a dedicated esophagram, distal esophagus not evaluated. The exam is limited b y patient kyphosis. Speech pathology report to follow. ... Fluoro time 1.21 minutes RADIATION DOSE DELIVERED: rylee Kirby=6.65 mGy
[2021-10-14 06:59] LABS: Abs Immature Grans 0.05 10^3/uL (0.0-0.06); Absolute Lymphocyte Count 0.63 10^3/uL (1.2-3.4); Absolute Monocyte Count 0.37 10^3/uL (0.1-0.8); HCT 23.6 % (36.0-46.0); Immature Grans % 0.9; Lymphocytes % 11.8; MCH 32.1 pg (27.0-33.0); MCHC 29.7 % (32.0-36.0); MCV 108.3 fL (80-95); MPV 9.7 fL (8.0-11.0); Monocytes % 6.9; Neutrophils % 80.4; Nucleated RBC 1 %; Platelet Count 178 10^3/uL (130-400); RBC 2.18 10^6/uL (3.93-5.22); RDW 15.1 % (11.7-14.6); RDW-SD 58.3 fL; WBC 5.35 10^3/uL (4.4-10.8)
[2021-10-14 07:37] LABS: BUN 26 mg/dL (7-18); CREATININE 1.4 mg/dL (0.55-1.02); Calcium 8.5 mg/dL (8.5-10.1); Chloride 107 mmol/L (98-107); Estimated GFR 35.82 (mL/min/1.73m2); Glucose 77 mg/dL (74-106); Potassium 4.7 mmol/L (3.5-5.1); Sodium 142 mmol/L (136-145)
[2021-10-14] MEDS: Sucralfate 1 GM TAB PO ×4 (08:12→21:39)
[2021-10-14] MEDS: Ferrous Sulfate 325 MG TAB PO (08:12)
[2021-10-14] MEDS: DOXYCYCLINE 100 MG in Normal Saline 100 ML IVPB ×2 (08:13→20:05)
[2021-10-14] MEDS: Gabapentin 300 MG CAP 600 MG PO ×2 (08:26→20:05)
[2021-10-14] MEDS: Lidocaine 5% Patch 1 PATCH TP (08:26)
[2021-10-14] MEDS: predniSONE 10 MG TAB 20 MG PO (08:26)
[2021-10-14] MEDS: Methadone 5 MG TAB PO ×2 (08:26→20:04)
--- NOTE | 2021-10-14 08:42 | PDOC.CMPRO ---
- If Service Date Differs Date of service: 10/14/21 Time of Service: 08:42 Care Management Progress Note S/O:Tanja was sitting up in a chair when CM met with her. She appeared pale and tired. She stated to CM that she is feeling very, very weak. She verbalized that she understands that her blood counts are low (H&H 23.6/7.0), but stated that her Myasthenia Gravis could just as easily be a factor. Tanja has been told that she will receive a unit of blood today. She shared that she hopes it makes her stronger as she would really like to be home for Thanksgiving. She informed that her family is planning a large gathering (all are vaccinated) and she is looking forward to participating. A: Tanja is an 86 year old woman admitted with CAP and myasthenia gravis on 10/10/21 P:Anticipate Tanja will discharge home with a resumption of Home Health nursing, and the addition of PT when medically cleared by provider. She will follow up with her PCP and discharge plan of care as directed. Tanja will be driven home via private vehicle with family when ready. CM will continue to support patient and discharge planning needs.
--- NOTE | 2021-10-14 08:49 | STREC_ITS ---
Date of service: 10/14/21 Time of Service: 08:49 Speech Therapy Recommendations Report ST Recommendations: [employer] Communication / Non-Treatment Note Consult order received; chart reviewed. [employer] spoke with patient's RN, Troy re: current patient status, reason for consult ie high choking/asp pna risk in context of Myasthenia Gravis, COPD, hx asp pna/dysphagia. RN reports patient is standby assist, occasionally will report dizziness, general weakness, continues with diarrhea, denies nausea (currently provided soft/bite-sized solids and thin liquids; eating muffin slowly this AM without issue); reports occasional globus with pills (provided slowly over time by RN). Plan: [employer] to tentatively perform VFSE/MBSS for objective assessment on this date, awaiting VFSE/MBSS order and confirmation from DI, otherwise will provide full bedside assessment in afternoon for updated recommendations as appropriate. Current Recommendations: Continue current plan of care as outlined. Oral care and following general aspiration precautions & strategies will be paramount in minimizing further risk. Total supervision with mealtimes in order to ensure manageable WOB as well as ensure adherence to safe swallow strategies. Diet Texture: IDDSI Level(s) 6-Soft/Bite sized, consider 5-Minced/Moist if patient fatigue or WOB increases notably. 0-Thin Liquids Medication Intake: As tolerated ? whole with puree or crushed (as allowed pharmaceutically) with puree if patient has difficulty taking meds with thin liquids. Alter medications only as advised by MD or Pharmacist RISK MANAGEMENT: -Oral hygiene q4h/every 4 hours and before/after PO intake using friction with t oothbrush on all oral structures as tolerated -HOB upright as tolerated; upright for all PO intake. -Encourage physical mobility as tolerated. Strategies/Adaptations/Assistive Equipment: Reduce auditory and/or visual distractions when eating Provide verbal and/or visual cues to use recommended strategies PRN Small sips and bites when eating Slow rate of intake and breathing breaks Alternate intake of liquids and solids If patient complains of fatigue, consider small+frequent meals throughout day Level of Assistance/Supervision: Pending mental status ? RN/MD discretion. PO intake only when awake/alert Posture/Positioning Needs: Maintain upright position at least 30 minutes after meals Dominique Thapa MA CCC-[employer] Speech-Language Pathologist [place]#[phone] Coding
[2021-10-14] MEDS: Pantoprazole 40 MG VIAL IVP ×2 (09:51→20:05)
[2021-10-14] MEDS: Folic Acid 1 MG TAB PO (09:52)
[2021-10-14] MEDS: Hydrocortisone SOD SUC. 100 MG VIAL 50 MG IVP (09:52)
[2021-10-14] MEDS: Multivitamin TAB 1 TAB PO (09:52)
[2021-10-14] MEDS: Famotidine 20 MG TAB PO (09:52)
[2021-10-14] MEDS: cefTRIAXone 1 GM/50 ML BAG IVPB (09:53)
--- NOTE | 2021-10-14 11:30 | PHA.REVIEW ---
Pharmacy Admission Review - Admission Clinical Review (Last Updated 10/12/21 @ 13:13 by Ana Page NP) UTI (urinary tract infection) (Acute) Dependent edema (Acute) Pneumonia (Acute) Weakness (Acute) Exertional dyspnea (Acute) Discharge planning issues (Acute) DVT prophylaxis (Acute) FAHAD Inhibitors Allergy (Unverified 10/10/21 20:02) albuterol Allergy (Unverified 10/10/21 20:02) Beta-Blockers (Beta-Adrenergic Bloc Allergy (Unverified 10/10/21 20:02) Sulfa (Sulfonamide Antibiotics) Allergy (Verified 10/10/21 20:02) Hives sulfamethoxazole [From Bactrim] Allergy (Unverified 10/10/21 20:02) trimethoprim [From Bactrim] Allergy (Unverified 10/10/21 20:02) Resuscitation Status Full Code Height 5 ft 8 in Weight 120.8 kg - Renal Dosing Renal Dosing: BUN 26 mg/dL (7-18) H 10/14/21 06:20 Creatinine 1.4 mg/dL (0.55-1.02) H 10/14/21 06:20 Medications needing adjustments: Reviewed (SCr: 1.4, CrCl: ~40.9mL/min using adjusted body weight.) List of meds needing interventions: Current medications okay, Famotidine dose renally adjusted. - Anticoagulation Anticoagulation: Hgb 7.0 g/dL (11.2-15.7) L 10/14/21 06:20 Hct 23.6 % (36.0-46.0) L 10/14/21 06:20 Plt Count 178 10^3/uL (130-400) 10/14/21 06:20 INR 1.0 (0.9-1.1) 10/10/21 20:30 Creatinine 1.4 mg/dL (0.55-1.02) H 10/14/21 06:20 DVT Prophylaxis: Reviewed (Apixaban was ordered then discontinued due to possible GI bleed. Currently has TEDs ordered.) Therapeutic Anticoagulation: Reviewed (See note above.) - Opiate Usage Evaluate Pain Scale/Pains Meds: Reviewed (Methadone 5mg BID scheduled, Hydromorphone 2mg PRN.) Scheduled Bowel Reg ordered if on Opiates?: No (PRN Senna, Docusate, MOM) - Relevant Labs Sodium 142 mmol/L (136-145) 10/14/21 06:20 Potassium 4.7 mmol/L (3.5-5.1) D 10/14/21 06:20 Chloride 107 mmol/L (98-107) 10/14/21 06:20 Magnesium 2.1 mg/dL (1.8-2.4) 10/13/21 06:05 Electrolytes, C-Reactive P, ESR: Reviewed - DM Control DM Control: Glucose 77 mg/dL (74-106) 10/14/21 06:20 Finger Stick Blood Glucose 96 Finger Stick Blood Glucose 96 Insulin Dosing: N/A (Blood glucose elevated on admission, has been low since. No DM in patient history, no A1c on file.) - Heart Failure/AK Heart Failure/AK: Troponin I < 0.05 ng/mL (<0.06) 10/10/21 22:55 NT-Pro-B Natriuret Pep 927 pg/mL (<300) H 10/10/21 20:30 EF%, FAHAD's, B-Blockers, Diuretics: Reviewed (Currently not on any BP medications.) - BP Control BP Control: Blood Pressure 119/61 Blood Pressure 118/69 Blood Pressure 139/72 If elevated: N/A - Qtc Review If Elevated: Reviewed List meds needing interventions: QTc 479 on admission. Patient currently taking Methadone, watch for other QTc prolonging medications. - IV to PO Switch IV Medications: Reviewed - Home Meds Home Med List reviewed: Reviewed (Not all home meds confirmed, OTC/PRN Albuterol, Bisacodyl, Acetaminophen and Acidophilus.) Relevent Home Meds Not ordered & why?: Furosemide 40mg daily (dose decreased then discontinued), Eliquis 2.5mg BID (due to possible GI bleed), Cyanocobalamin injection (only administered once a month, not due). - Current meds Current Medication Order Review: Reviewed - Comments Comments/Follow Ups: Watch vital signs, Scr, H&H, labs and for med changes (avoid QT prolonging medications and possible renal dose adjustments). Antibiotic Activity - Pharmacy Antibiotic Review Pharmacy Antibiotic Activity: Reviewed, no change (Patient currently on Doxycycline (day 4) and Ceftriaxone (day 2) for pneumonia.) - Antibiotic Information Antibiotic Review Info: Doxycycline is generally well tolerated in myasthenia gravis, but occassionally associated with an exacerbation. Provider is aware.
--- NOTE | 2021-10-14 11:47 | PT.INNT ---
Date of service: 10/14/21 Time of Service: 11:25 PT Notes Visit Reasons: CAP,Myasthenia Gravis Patient's Hgb is down to 7.0 g/dL and Hct down to 23.6% and is about to be transfused with PRBC when this PT came in for session. Patient was assisted from bedside commode back to chair with minimal assist using no AD. Will plan on seeing patient this afternoon and determine appropriateness of low intensity activity. Thank you for the opportunity to participate in the care of this patient. Anamika Miner PT, DPT, CLT [facility] [place], [place]
[2021-10-14] MEDS: Ergocalciferol 50000 UNITS CAP PO (11:52)
--- NOTE | 2021-10-14 13:04 | W.PM.PROGNOT ---
Date of Service Date of service: 10/14/21 Time of Service: 13:04 Assessment and Plan Assessment and plan (1) Weakness: Status: Acute Assessment and plan: Feeling tired today. Appears dry, LR at 50, hold lasix Hypoglycemic this am, hypokalemic, repleted with orals She states not sleeping given ambien for bedtime (2) GI bleed: Status: Chronic Assessment and plan: H&H stable. no transfusion at this time. Heme stool positive. Patient was suppose to be on 2.5 mg apixaban however she was given 5 mg. This was discontinued as soon as hemoglobin seen at 7.1 will recheck and transfuse if under 7, patient is agreeable She is asking for food. Will trial soft diet. If nauseated will change to NPO or clears. PPI BID, carafate, famotidine. continue to monitor H/H Will hold off on surgery consult at this time. Qualifiers: GI bleed type/associated pathology: melena Qualified Code(s): K92.1 - Melena (3) UTI (urinary tract infection): Status: Acute Assessment and plan: E. coli growing 100,000 with pansensitives. switched to ceftriaxone zosyn dcd. Likely why dizzy after urination Doxy continued for CAP Awaiting sensitivities. BC NGTD Qualifiers: Hematuria presence: with hematuria Urinary tract infection type: site unspecified Qualified Code(s): N39.0 - Urinary tract infection, site not specified; R31.9 - Hematuria, unspecified (4) Dependent edema: Status: Acute Assessment and plan: Likely due to venous insufficiency. Teds ordered. (5) Pneumonia: Status: Acute Assessment and plan: present on admission. H/o both aspiration and pseudomonas PNA. No known h/o MRSA. Will check MRSA nares, sputum C&S. Grew e.coli, treating with doxy and ceftrixone. Obtain swallow eval. due for plasma exchange due to this. Qualifiers: Laterality: right Lung location: lower lobe of lung Pneumonia type: due to unspecified organism Qualified Code(s): J18.9 - Pneumonia, unspecified organism (6) Myasthenia gravis: Status: Chronic Assessment and plan: On plasmaphoresis and solaris Q2 weeks as well as on steroids. The frequency of plasmaphoresis is about to be increased, as per the patient. She does state that she is ok to skip this week if ok with her neuorlogist because she is not feeling well and if wipes her out. She is due for an exchange on Thursday. Her neurologist will need to be called on Thursday to discuss if she should have the plasmaphoresis exchange if so she will need a down and back to [place]. CM aware. (7) Acute adrenal insufficiency: Status: Ruled-out Assessment and plan: Hypoglycemic this am, hypokalemic, feeling weak will give stress dose steroids today due to weakness. (8) Atrial fibrillation: Status: Chronic Assessment and plan: Rates have been controlled. Continue home therapy. Repeat echo. see note for echo results Qualifiers: Atrial fibrillation type: unspecified chronic Qualified Code(s): I48.20 - Chronic atrial fibrillation, unspecified (9) COPD (chronic obstructive pulmonary disease): Status: Chronic Assessment and plan: Improved, not exacerbated at this time Tx with abx, nebs. Not requiring oxygen Qualifiers: COPD type: unspecified COPD Qualified Code(s): J44.9 - Chronic obstructive pulmonary disease, unspecified (10) Descending aortic aneurysm: Status: Chronic Assessment and plan: While this diagnosis is new to us, the imaging findings are of a chronic aneurysm. This will need to be reviewed by vascular surgery. images have been sent to [facility] for vascular surgery review. appropriate for vascular surgery follow up as outpatient. Maintain BP under 140 Systolic per patient BP runs low without medication (11) DVT prophylaxis: Status: Acute Assessment and plan: On therapeutic apixaban (12) Discharge planning issues: Status: Acute Assessment and plan: Full code C/s speech, physical therapy and occupational therapy Discussed with Dr. Bell Subjective Subjective Patient reports: no new complaints, tolerating liquids well, tolerating a regular diet and afebrile; denies shortness of breath Interval history since last seen: having difficultly holding up her head, no difficulty swallowing, no respiratory c/o Exam Const General: cooperative and frail appearing Nutritional Appearance: average body habitus Orientation: oriented x3 HENMT Mouth: moist mucous membranes Teeth and gingiva: bridge and poor dentition Resp Effort & Inspection: able to speak in complete sentences Auscultation: diminished lung sounds Cardio Heart Sounds: murmur Extrem Right lower extremity: no edema Left lower extremity: no edema Psych Mental Status: mental status grossly normal Speech and Movement: speech and movement normal Mood: congruent mood Affect: normal affect Objective Last Vital Signs Temp 36 C L 10/14/21 12:18 Pulse 86 10/14/21 12:18 Resp 14 10/14/21 12:18 BP 113/70 10/14/21 12:18 Pulse Ox 96 10/14/21 12:18 Laboratory Results - last 24 hr 10/14/21 10/14/21 10/14/21 06:20 06:20 10:07 WBC 5.35 RBC 2.18 L Hgb 7.0 L Hct 23.6 L MCV 108.3 H MCH 32.1 MCHC 29.7 L RDW 15.1 H Plt Count 178 MPV 9.7 Immature Gran % 0.9 Neutrophils % 80.4 Lymphocytes % 11.8 Monocytes % 6.9 Eosinophils % 0.0 Basophils % 0.0 Nucleated RBC % 1 Absolute Neutrophils 4.30 Absolute Lymphocytes 0.63 L Absolute Monocytes 0.37 Absolute Eosinophils 0.00 Absolute Basophils 0.00 Sodium 142 Potassium 4.7 D Chloride 107 Carbon Dioxide 30.0 Anion Gap 5.0 BUN 26 H Creatinine 1.4 H Estimated GFR/1.73 m2 35.82 Glucose 77 Calcium 8.5 Patient ABO/Rh O Negative Antibody Screen NEGATIVE Crossmatch See Detail
--- NOTE | 2021-10-14 14:02 | ST.MBS_ITS ---
Date of Service Date of service: 10/14/21 Time of Service: 14:02 Modified Barium Swallow Study Findings: Videofluoroscopic Swallowing Evaluation (VFSE) / Modified Barium Swallow Study (MBSS) Speech Language Pathology Report HPI: Patient is an 86 year old female referred for VFSE/MBSS from Dr. Bell given high choking/asp pna risk in context of Myasthenia Gravis, COPD, hx asp pna/dysphagia. 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 Gastrostomy Tube Placement H/O wisdom tooth extraction S/P appendectomy Social History/Home Situation: Patient lives with her son Frankie and daughter in law Caldera in a private home. States that she walks short distances in the home with a FWW. Previous Imaging: N/A SUBJECTIVE: Patient reports frequent pharyngeal globus paired with weakness over past few days, denies overt s.sx aspiration but is aware that aspiration is common occurrence with MG and reports that she does eat soft foods at home because of this. Patient is open to learning more re: risk management strategies to inc orporate in home setting to reduce risks of recurrent pna, stating I have a lot of life to live! IMPRESSIONS: Swallow safety is preserved (no aspiration present); swallow efficiency is impaired. Mild-moderate oropharyngeal dysphagia, likely [id number], characterized by reduced lingual control and delayed pharyngeal swallow onset, resulting in oral residue along palate and base of tongue, and penetration prior to swallow onset; diffuse pharyngeal impairment resulting in penetration during initial swallow onset from current bolus and moderate vallecular residue + trace pyriform sinus residue; penetration also occurs prior to swallow onset from pyriform sinus residue with thin liquid wash. Dysphagia presentation in context of myasthenia gravis/MG, exertional dyspnea/hx COPD. Patient appears to be at moderate risk for recurrent aspiration PNA and/or pulmonary compromise at this time. Swallow prognosis is fair, given effect of MG on oropharyngeal swallow, exertional dyspnea, age, and pending patient/caregiver training in risk management, including use of trialed compensatory strategies as outlined. Patient appears to be a good candidate for behavioral swallow rehabilitation with focus on behavioral modifications and options for texture modification(s), as exercise is contraindicated with MG especially during exacerbation(s). Diet modification is indicated; given recent need for increased frequency of myasthenia gravis treatment/management with plasmapheresis, as well as acute- on chronic weakness and poor pulmonary function, recommend continuation of current diet consistency with education from [employer] while on unit. Soft/bite sized likely to minimize within-meal fatigue as well as reduce work of breathing and mitigate risk of aspiration/choking due to both weakness as well as potential poor coordination of respiration and deglutition. Specialist referrals: N/A Ancillary tests: N/A Diet Texture Modification(s): IDDSI Level(s) 6-Soft/Bite sized, consider 5-Minced/Moist if patient fatigue or WOB increases notably. 0-Thin Liquids Medication Intake: As tolerated ? whole with puree or crushed (as allowed pharmaceutically) with puree if patient has difficulty taking meds with thin liquids. Alter medications only as advised by MD or Pharmacist RISK MANAGEMENT: -Oral hygiene q4h/every 4 hours and before/after PO intake using friction with toothbrush on all oral structures as tolerated -HOB upright as tolerated; upright for all PO intake; may consider wearing neck brace prior to mealtimes -Encourage physical mobility as tolerated. -Caregiver education: [email or web address] Strategies/Adaptations/Assistive Equipment: Small sips and bites when eating Slow rate of intake and breathing breaks / Resting prior to meals (wearing neck brace prior to meals), Avoid talking when possible Alternate intake of liquids and solids, alternating with cold beverages or foods If patient complains of fatigue, consider small+frequent meals throughout day Time meals around peak medication times; eating about an hour after taking your medication Reduce auditory and/or visual distractions when eating Provide verbal and/or visual cues to use recommended strategies PRN Level of Assistance/Supervision: Pending mental status ? RN/MD discretion. PO intake only when awake/alert Posture/Positioning Needs: Maintain upright position at least 30 minutes after meals PLAN: Therapy: Recommend continued [employer] services while on unit to review results of today's exam and provide further education/training in risk management as appropriate to caregiver(s) prior to d/c. Goal: Patient/caregiver(s) will demonstrate comprehension/carryover of outlined risk management strategies for p.o. intake in context of MG/COPD in order to reduce risks of airway compromise/asp pna, improve efficiency of oropharyngeal swallow, and enhance quality of life within 1 week. Follow-up exam: N/A Thank you for allowing me to take part in this patient's care. Please feel free to contact me with any questions/concerns. Dominique Thapa MA [facility]-[employer] Speech Language Pathologist [phone] OBJECTIVE: Videofluoroscopic Swallow Evaluation (VFSE/MBSS) was conducted in the lateral and [id number] projections by Speech-Language Pathologist, in collaboration with Radiologist, to evaluate oropharyngeal swallow function. Anatomic view under fluoroscopy: WFL initially, however deviates into maximal cervical and thoracic flexion, worsening over time; patient able to support her head in cervical extension with verbal cues, reports she typically wears a neck brace (not present during assessment) PO Barium Contrast Trials Oral barium water-soluble contrast was administered as follows: IDDSI Level 0 Varibar thin liquid (40% w/v) IDDSI Level 2 Varibar nectar thick/mildly thick liquid (40% w/v) IDDSI Level 3 Varibar thin honey/liquidised/moderately-thick (40% w/v) IDDSI Level 4 Varibar pudding/pureed/extremely thick (40% w/v) IDDSI Level 7 Regular Solid: 1/2 rosi cracker coated in 3 mL Varibar pudding PHYSIOLOGIC FINDINGS (1) Oral Impairment 1 Lip Closure 0 no labial escape 2 Tongue Control 2 posterior escape of less than half of bolus 3 Bolus Preparation/Mastication 1- Slowed/prolonged chewing/mashing with complete recollection 4 Bolus Transport/Lingual Motion 1- Delayed initiation of tongue motion 5 Oral residue 2- Residue collection on oral structures Location palate, tongu e 6 Initiation of pharyngeal swallow 3- Bolus head in pyriform sinus Pharyngeal Impairment 7 Velar Elevation 1- Trace column of contrast or air betwe en soft palate and pharyngeal wall 8 Laryngeal Elevation 1- Partial superior movement of thyroid cartilage with partial approximation of arytenoids to epiglottic petiole 9 Anterior Hyoid Excursion 1- Partial anterior movement 10 Epiglottic Movement 1- Partial inversion 11 Laryngeal Vestibule Closure 1- Incomplete; narrow column of air/cont rast in laryngeal vestibule Penetration occurs prior to and during initial swallow onset from current bolus; also occurs prior to swallow onset from pyriform sinus residue with thin liquid wash Aspiration not observed PAS / Overall 8-Point Penetration-Aspiration Scale (2) 2 - Material enters the airway remains a ana lilia the vocal folds and is ejected from the airway Clinical Indicator(s) of Prandial/Postprandial Aspiration N/A 12 Pharyngeal Stripping Wave 1- Present; diminished 13 Pharyngeal Contraction DNT; lack of AP view 14 PES/UES Opening 1- Partial distension and partial durati on; partial obst ruction of flow 15 Tongue Base Retraction 1- Trace column of contrast between tong ue base and posterior pharyngeal wall 16 Pharyngeal residue 2- Collection of residue within or on ph aryngeal structures Location [place] Pharyngeal Residue Severity Rating Scale(3) Tongue base Valleculae IV Moderate 25-50% Epiglottic ligament covered Pyriform sinuses II Trace 1-5% Trace coating Esophageal Impairment 17 Esophageal Clearance in Upright Position DNT; lack of AP view LAVELL: (4) Severity LEVEL 4 - Full PO: modified diet and/or independence - Mild-moderate dysphagia; Intermittent supervision/cueing and/or 1 or 2 consistencies restricted Trialed Compensatory Strategies & Outcome: Maneuvers Successful/Unsuccessful (+/-) Postures Successful/Unsuccessful (+/-) 3 second Preparatory Set - Chin Tuck Posture + (pt performs independently 2/2 posture) Cough Posterior Head tilt Reflexive Cued Throat Clear Head Tilt to Reflexive Left Cued + Right Saliva swallow x2 - Head Turn/Rotation to Supraglottic Swallow Left Super-supraglottic Swallow Right Bolus Modifications Successful/Unsuccessful (+/-) Delivery/Alternating Consistencies - Wash with thin + Delivery/Via Straw Patient reports not drinking from straw at home; not tested this date Reduced Volume + Reduced Rate of Intake + Increased Viscosity + Other: Coding CPT Codes MOTION FLUOROSCOPY/SWALLOW - 27226 ([id number]) 1: Josefina Collier et al. ?MBS measurement tool for swallow impairment--MBSImp: establishing a standard.? Dysphagia vol. 23,4 (2008): 392-405. doi:10.1007/j45216-097-1359-3 2: (Anila, et al, 1996) 3: (Mili et al, 2015) 4: The Dysphagia Outcome and Severity Scale is a 7-point scale developed to systematically rate the functional severity of dysphagia based on objective assessment and make recommendations for diet level, independence level, and type of nutrition.
--- NOTE | 2021-10-14 14:21 | PCNE_ITS ---
Date of service: 10/14/21 Time of Service: 08:21 History of Present Illness History of Present Illness Chief Complaint: uri, weakness Narrative: From H and P: History of Present Illness Chief Complaint: Weakness, shortness of breath Narra tive: Ms Carpio is an 86 year old female with PMHx of myasthenia gravis, receiving plasmaphoresis Q2 wks, last two days prior to presentation, as well as on Solaris therapy, last on 10/09/21, who is also steroid-dependent, also has a h/o non-oxygen dependent COPD, Afib on anticoagulation with apixaban, CHFpEF as per echo in 01/2020, prior h/o pseudomonas pneumonia as well as aspiration pneumonitis, who presented to [facility] ED on 02/07/21 c/o shortness of breath and weakness. The patient specifically denies cough. Shortness of breath and weakness have been going on for about two weeks, but have gotten much worse over the last two days. Weakness does not feel like her MG weakness. The patient has been able to ambulate with a walker, but has not been able to go farther than to the bathroom and back to her chair without getting severely weak. She endorses some difficulty swallowing, which got better after her plasmaphoresis on Thursday. She has been managing this with soft foods at home. She tested negative for COVID-19. She is saturating 96 % on RA at rest, though per the ED provider she did desaturate to the 80s while in the ED. Her ED workup revealed a patchy bilateral lower lobe pneumonia as well as multifocal bronchiectasis. 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 The patient was initiated on empiric ceftriaxone/doxycycline as well as stress dose steroids and hospitalist admission was requested. Her NIF was - 28, which is her baseline. Of note, it has just been decided that the frequency of her plasmaphoresis will need to be increased to Q1week. Interim Hx: Alejandra is an 86-year-old woman with myasthenia gravis receiving plasmapheresis every week as well as Solaris therapy. She is steroid-dependent but not oxygen dependent COPD, A. fib on anticoagulation with a prior history of Pseudomonas pneumonia. 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 This morning she states that she is very weak. She was happy that the report of her echo was encouraging. [place]. 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 She said her dissertation for her doctorate was on the temperament. Unfortunately she struggled and was not able to remember what with the for types of temperament. She said she feels she is quite healthy and has a lot to live for. She showed me quilts that she had made for her grandchildren and one that was in progress. She very much enjoys living with her son and family. Assessment and Plan Assessment and plan (1) COPD (chronic obstructive pulmonary disease): Status: Chronic Qualifiers: COPD type: unspecified COPD Qualified Code(s): J44.9 - Chronic obstructive pulmonary disease, unspecified (2) Weakness: Status: Acute (3) Atrial fibrillation: Status: Chronic Qualifiers: Atrial fibrillation type: unspecified chronic Qualified Code(s): I48.20 - Chronic atrial fibrillation, unspecified (4) Myasthenia gravis: Status: Chronic (5) UTI (urinary tract infection): Status: Acute Qualifiers: Urinary tract infection type: site unspecified Hematuria presence: with hematuria Qualified Code(s): N39.0 - Urinary tract infection, site not specified; R31.9 - Hematuria, unspecified (6) GI bleed: Status: Chronic Qualifiers: GI bleed type/associated pathology: melena Qualified Code(s): K92.1 - Melena (7) Pneumonia: Status: Acute Qualifiers: Pneumonia type: due to unspecified organism Laterality: right Lung location: lower lobe of lung Qualified Code(s): J18.9 - Pneumonia, unspecified organism (8) Palliative care patient: Status: Acute Assessment and plan: Myasthenia gravis?they are letting her neurologist know that she is inpatient and will need a ride to get this tomorrow she requir es plasmapheresis She is on chronic prednisone and has been placed on stress dose steroids She had been on apixaban 2.5 mg twice daily by mistake she received a 5 mg. Meds have been updated Unfortunately she had rectal bleeding her hemoglobin was at 7 this morning she will require transfusion Pneumonia and UTI being treated with appropriate antibiotics CODE STATUS she is presently a full code. We did talk about CPR and what it is. She states that she has a lot to live for, really enjoys her life and is okay with broken ribs and being on a breathing machine. She was quite upset that she could not remember the 4 basic temperaments that she wrote her dissertation on for her doctorate. I will stop back this evening and see if she remembers! Review of Systems Narrative: Her biggest problem presently is her weakness. She is surprised that her memory is not as crisp as usual. She is eager to return home No chest pain she is weak but she is not feeling shubham shortness of breath. No specific joint pain [facility] Active Problem List (Updated 10/14/21 @ 14:32 by Marcelle Jose MD, [place]) Palliative care patient (Acute) UTI (urinary tract infection) (Acute) Dependent edema (Acute) GI bleed (Chronic) Descending aortic aneurysm (Chronic) Pneumonia (Acute) COPD (chronic obstructive pulmonary disease) (Chronic) Weakness (Acute) Exertional dyspnea (Acute) Ileus, unspecified (Acute) Elevated troponin (Acute) Weakness (Acute) Thrush, oral (Acute) Discharge planning issues (Acute) Atrial fibrillation (Chronic) Myasthenia gravis (Chronic) Multifocal pneumonia (Acute) Pseudomonas pneumonia (Acute) Aspiration pneumonitis (Acute) Eating disorder (Acute) Debility (Acute) Sepsis (Acute) DVT prophylaxis (Acute) Hypokalemia (Acute) Medical History (Updated 10/14/21 @ 14:32 by Marcelle Jose MD, DC) Aspiration pneumonia B12 deficiency Cardiomyopathy Echo 12/10/2018: EF 60-65%, up from 35% previously; does have diastolic dysfunction Chronic constipation Chronic insomnia Chronic pain on methadone therapy Compression fracture of spine Depression Dysphagia 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 Gastrostomy Tube Placement H/O wisdom tooth extraction S/P appendectomy Family History Father Heart disease Mother Cancer pancreatic Social History Smoking/Tobacco Use Status: Never Smoking risk assessment performed?: Yes Alcohol Intake: current Alcohol Intake frequency: a few times a week Alcohol type: hard liquor Drug use: Never Substance use type: does not use Do you feel safe at home: Yes Do you feel safe in your relationship?: Yes Additional Social history: live with son and his family Exam Narrative Exam Narrative: She is lying in bed. She is able to sit up when I asked to do my examination Const General: cooperative and frail appearing Nutritional Appearance: average body habitus Orientation: oriented x3 HENMT Mouth: moist mucous membranes Teeth and gingiva: bridge and poor dentition Resp Effort & Inspection: able to speak in complete sentences Auscultation: diminished lung sounds Cardio Heart Sounds: murmur Extrem Right lower extremity: no edema Left lower extremity: no edema Results Last Vital Signs Temp 96.8 F L 10/14/21 13:09 Pulse 83 10/14/21 13:09 Resp 14 10/14/21 13:09 BP 128/80 10/14/21 13:09 Pulse Ox 98 10/14/21 13:09 Labs Result diagrams: 10/14/21 06:20 10/14/21 06:20 Labs: Laboratory Results - last 24 hr 10/14/21 10/14/21 10/14/21 06:20 06:20 10:07 WBC 5.35 RBC 2.18 L Hgb 7.0 L Hct 23.6 L MCV 108.3 H MCH 32.1 MCHC 29.7 L RDW 15.1 H Plt Count 178 MPV 9.7 Immature Gran % 0.9 Neutrophils % 80.4 Lymphocytes % 11.8 Monocytes % 6.9 Eosinophils % 0.0 Basophils % 0.0 Nucleated RBC % 1 Absolute Neutrophils 4.30 Absolute Lymphocytes 0.63 L Absolute Monocytes 0.37 Absolute Eosinophils 0.00 Absolute Basophils 0.00 Sodium 142 Potassium 4.7 D Chloride 107 Carbon Dioxide 30.0 Anion Gap 5.0 BUN 26 H Creatinine 1.4 H Estimated GFR/1.73 m2 35.82 Glucose 77 Calcium 8.5 Patient ABO/Rh O Negative Antibody Screen NEGATIVE Crossmatch See Detail
[2021-10-14] MEDS: Barium Sulfate 81% w/w for Oral Suspension 148 GM BTL PO (15:10)
[2021-10-14] MEDS: Barium Sulfate 40% W/V 1500 CPS 250 ML BTL 10 ML PO (15:13)
[2021-10-14] MEDS: Barium Sulfate Oral Paste 40% W/V 230 ML TUBE PO (15:15)
--- NOTE | 2021-10-14 16:28 | PTTR_ITS ---
Date of service: 10/14/21 Time of Service: 16:28 PT Notes Visit Reasons: CAP,Myasthenia Gravis Inpatient Physical Therapy Treatment Note [facility] Date: 10/14/21 SUBJECTIVE: Was about to receive blood when PT came in to assist with transfers this morning. Feels more fatigued this morning. Patient was agreeable to doing some standing level exercises in the afternoon. Denies dizziness, chest pain, and headache throughout the transfer activity in the morning and afternoon session. OBJECTIVE: Hgb down to 7 g/dL and Hct to 23.6% causing fatigue level to really go down. BED MOBILITY/TRANSFERS Sit-stand: minimal assist Stand-sit: minimal assist GAIT Deferred gait activity in the morning as Nurse Figueroa and Alaina were getting ready to transfuse patient with blood walter to low H and H. Will resume gait activities tomorrow morning as tolerated. THEREX: Performed standing level balance exercises while holding onto FWW: heel raises x 10, mini squats x 10, and marching in place x 10 with minimal shortness of breath and fatigue. ASSESSMENT: Activity level limited due to low H and H today. Will resume functional mobility training tomorrow morning as H and H normalizes. PLAN: Progress mobility level, increase strength, and continue with HEP. DISCHARGE RECOMMENDATIONS: [] Home with no services [] [X] Home with HH PT to continue with functional mobility training to regain prior mobility level. May benefit from reassessment by HH PT of seating options to minimize further skin breakdown in sacrum. [] Home with outpatient PT [] [] SNF for continued rehabilitation [] [] Custodial Care [] [] SNF versus LTC based on ability to participate and progress [] TREATMENT CODE/TIME: 56790 x 23 minutes beginning at 16:28 PM.
[2021-10-14] MEDS: Normal Saline Flush 10 ML SYR IVP ×2 (20:05→21:40)
[2021-10-14] MEDS: Patch Removal 1 EACH TP (20:16)
[2021-10-14 20:20] LABS: HCT 35.4 % (36.0-46.0); HGB 11.2 g/dL (11.2-15.7)
[2021-10-14] MEDS: Melatonin 3 MG TAB 9 MG PO (21:39)
[2021-10-14] MEDS: Zolpidem 5 MG TAB PO (23:00)
[2021-10-15 05:06] VITALS: BP 143/63; PULSE 75; RESP 17; TEMP 36.2; O2SAT 96
[2021-10-15 07:07] VITALS: BP 135/60; PULSE 83; RESP 12; TEMP 36.6; O2SAT 94
[2021-10-15] MEDS: Famotidine 20 MG TAB PO (08:08)
[2021-10-15] MEDS: Sucralfate 1 GM TAB PO (08:08)
[2021-10-15] MEDS: Methadone 5 MG TAB PO (08:08)
[2021-10-15] MEDS: Gabapentin 300 MG CAP 600 MG PO (08:09)
[2021-10-15] MEDS: predniSONE 10 MG TAB 20 MG PO (08:09)
--- NOTE | 2021-10-15 08:21 | PDOC.CMPRO ---
- If Service Date Differs Date of service: 10/15/21 Time of Service: 08:21 Care Management Progress Note S/O:Tanja was sitting up in a chair when CM met with her. A: Tanja is an 86 year old woman admitted with CAP and myasthenia gravis on 10/10/21 P:Anticipate Tanja will discharge home with a resumption of Home Health nursing, and the addition of PT when medically cleared by provider. She will follow up with her PCP and discharge plan of care as directed. Tanja will be driven home via private vehicle with family when ready. CM will continue to support patient and discharge planning needs.
--- NOTE | 2021-10-15 08:58 | DSE_ITS ---
Date of service: 10/15/21 Time of Service: 08:58 DS: Diagnosis Discharge Diagnosis (1) COPD (chronic obstructive pulmonary disease): Status: Chronic (2) Weakness: Status: Acute (3) Atrial fibrillation: Status: Chronic (4) Myasthenia gravis: Status: Chronic (5) UTI (urinary tract infection): Status: Acute (6) GI bleed: Status: Chronic (7) Pneumonia: Status: Acute (8) Palliative care patient: Status: Acute Discharge Plan Disposition Patient Disposition: HOME W/HOME HEALTH SERVICE Condition: Stable Discharge Details Reason For Visit: CAP,Myasthenia Gravis Admit Date/Time: 10/10/21 22:51 Admit Provider: Shreya Parker Attending Provider: Shreya Parker Primary Care Provider: Maribell Choi [facility] Course Hospital Course: This is an 86 yo female with hx of afib on eliquis, myasthenia, who had evidence of copd on lung imaging a year ago, who presented to the ED with several days of shortness of breath especially with exertion. Denies any fevers, chills, chest pain, has had general weakness. She was admitted for similar symptoms a year ago in August and after duoneb and monitoring was discharged. She has been vaccinated including a booster for covid. She is in no distress on exam with stable vitals. She is speaking clearly, caox4 and has no focal motor or sensation deficits. No cranial nerve deficits. She does have wheezing at the bases bilaterally no jvd or leg swelling. Work up in the ED included a cta to evaluate for Pe and possible pneumonia and obtain covid test. She has no neuro findings on exam to suggest myasthenia crisis, respiratory obtained NIF and she was found at her baseline at -28. labs show hemoglobin of 8 and she is chronically anemic, negative guiac on bedside testing. cta shows saccular aneurysm and no pe but does have infiltrates and has had a cough. Wheezing improved with duoneb. She does desaturate into the 80's with movement stays in the 90's at rest. ED provider discussed with pt and offered to discuss her aneurysm with ct surgery but she declined as she would not want to go through any surgery to repair this. She was started on ceftriaxone and doxycycline and admitted for community acquired pneumonia. Her respiratory status improved with treatment. she remained afebrile. she completed 5 days of IV antibiotics and will be given 2 more days of augmentin to complete a 7 day course. out of concern she was possibly aspirating she underwent a speech evaluation and modified barium swallow exam. there was no aspiration present but swallow efficiency is impaired. recommendations for soft/bite sized with think fluids and home health speech. She denies any difficulty swallowing and was tolerating her diet well. She had no evidence of acute gi bleeding but hemoglobin dropped to 7.0 and she was fatigued so agreed to 2 units of PRBC with improvement in her hemoglobin to 11.2. she will continue carafate and protonix with further outpatient referrals per pcp for further evaluation. She is due for plasmaphoresis at [facility] on Saturday, September 25, [address] discussed with DR Patel, and as she is medically stable she will be discharged to attend her visit. She was able to ambulate 20 feet and transfer without difficulty. Skilled level rehabilitation was discussed and patient opted to discharge to home with home health services. Arrangements have been made for her to be transported to [facility] for her appointment. discharge discussed with Dr Bell. Home Meds and New Rx's Prescriptions: New amoxicillin-pot clavulanate [Augmentin] 875-125 mg tablet 1 tab PO BID Qty: 6 RF: 0 pantoprazole [Protonix] 40 mg tablet,delayed release (DR/EC) 40 mg PO DAILY Qty: 30 RF: 0 sucralfate [Carafate] 1 gram tablet 1 g PO QACHS Qty: 120 RF: 0 Continued sennosides [senna] 8.6 mg tablet 8.6 mg PO BID PRNRF: 0 multivitamin [Multiple Vitamins] Tablet 1 tab PO DAILY RF: 0 hydromorphone [Dilaudid] 2 MG tablet 2 mg PO Q4H PRN MDD 6 PRNRF: 0 melatonin 10 mg Tablet 10 mg PO HS RF: 0 ferrous sulfate 325 MG tablet 325 mg PO DAILY Qty: 0 RF: 0 acidophilus-pectin, citrus 25 million cell -100 mg Tablet 1 cap PO AC Qty: 0 RF: 0 furosemide [Lasix] 20 mg tablet 40 mg PO QAM RF: 0 gabapentin 300 MG capsule 600 mg PO BID RF: 0 folic acid 0.8 MG capsule 1 mg PO DAILY RF: 0 ergocalciferol (vitamin D2) [Vitamin D2] 50,000 UNITS capsule 50,000 units PO .QOWEEK RF: 0 cyanocobalamin (vitamin B-12) 1,000 MCG/ML solution 1 ea IM .QMONTH RF: 0 bisacodyl 10 MG suppository 1 ea AR PRN PRNRF: 0 methadone [Dolophine] 5 MG tablet 5 mg PO BID RF: 0 acetaminophen [Tylenol] 325 mg Tablet 650 mg PO Q4H PRN PRNQty: 30 RF: 0 lidocaine 5 % adhesive patch,medicated 1 patch topical DAILY PRNRF: 0 prednisone 10 MG tablet 20 mg PO DAILY RF: 0 albuterol sulfate [ProAir HFA] 90 mcg/actuation HFA aerosol inhaler 2 puff inhalation QID Qty: 6.7 RF: 0 Discontinued Eliquis 2.5 MG tablet 2.5 mg PO BID RF: 0 Discharge Instructions Instructions: Community Acquired Pneumonia (DC) Additional Instructions: hold eliquis until your follow up appointment and discuss when and if to resume you need 3 more days of antibiotics to complete a 7 day course you will have resumption of home health services, add PT/OT. lab work on Thursday, October 16, 2021 to include: CBC, CMP Stand Alone Forms: Nursing Discharge Form Referrals: Maribell Choi [Primary Care Provider] - 10/25/21 2:30 pm Activity:: Activity as Tolerated Equipment/Supplies:: No Equipment Needed Diet:: As Tolerated Discharge Orders Discharge Orders: Discharge Order (Routine); Ordered 10/15/21 Ordered By: Lila Donohue Other Ambulatory Orders: Complete Blood Count w/Diff (Routine) Timeframe: [id number] Location: None Selected Ordered By: Lila Donohue Comprehensive Metabolic Panel (Routine) Location: None Selected Ordered By: Lila Donohue Discharge Data Discharge Date/Time-TO BE ENTERED AT DEPARTURE: 10/15/21 09:24 DS: Summary Time Spent with Patient providing and/or coordinating discharge services: Greater than 30 minutes Status at Discharge Functional status at discharge: uses cane/walker Overall status at discharge: patient is progressing back to baseline Mental Status: mental status grossly normal Speech and Movement: speech and movement normal Mood: congruent mood Affect: normal affect Exam Const General: cooperative and frail appearing Nutritional Appearance: average body habitus Orientation: oriented x3 HENMT Mouth: moist mucous membranes Teeth and gingiva: bridge and poor dentition Resp Effort & Inspection: able to speak in complete sentences Auscultation: diminished lung sounds Cardio Heart Sounds: murmur Extrem Right lower extremity: no edema Left lower extremity: no edema Psych Mental Status: mental status grossly normal Speech and Movement: speech and movement normal Mood: congruent mood Affect: normal affect DS: Data Vitals/I&O Vitals and I&O: Vital Signs Temperature 36.6 C 10/15/21 07:07 Temperature Source Tympanic 10/15/21 07:07 Pulse 83 10/15/21 07:07 Pulse Rhythm Regular 10/15/21 04:32 Pulse 87 10/10/21 23:10 Respiratory Rate 12 10/15/21 07:07 Respiratory Effort Non-Labored 10/15/21 04:32 Respiratory Depth Deep 10/15/21 04:32 Respiratory Pattern Normal 10/15/21 04:32 Blood Pressure 135/60 10/15/21 07:07 Blood Pressure Mean 68 10/10/21 23:00 Blood Pressure Position Supine 10/10/21 19:53 Pulse Oximetry 94 10/15/21 07:07 Oxygen Delivery Method Room Air 10/15/21 07:07 Oxygen Flow Rate 0 10/15/21 07:07 End Tidal Co2 0 10/10/21 19:53 Pain Level 0 10/15/21 07:07 Comment 10/12/21 19:48 Intake & Output 10/14/21 10/14/21 10/15/21 11:59 23:59 11:59 Intake Total 1730 / 3563 1833 / 3563 Output Total 350 / 550 200 / 550 Balance 1380 / 3013 1633 / 3013 Intake: IV 930 / 1260 330 / 1260 Oral 800 / 1640 840 / 1640 Blood Product 558 / 558 Rbc Leuko Reduced Unit 279 / 279 [id number] Rbc Leuko Reduced Unit 279 / 279 [id number] Other 105 / 105 Rbc Leuko Reduced Unit 55 / 55 [id number] Rbc Leuko Reduced Unit 50 / 50 [id number] Output: Urine 250 / 450 200 / 450 Stool 100 / 100 Other: Urine Color Yellow Yellow Urine Appearance Clear Clear Clear Urine Odor Normal Normal Comment Urine contaminated with stool. Stool Occult Blood Positive Positive Stool Size Small Small Stool Characteristics Liquid Soft Liquid Mucoid Brown Black Voiding Methods Bedside Commode Bedside Commode Data Completed and Pending Labs on day of discharge: Labs from last 24 hours 10/14/21 10/14/21 20:08 10:07 Hgb 11.2 D Hct 35.4 L D Patient ABO/Rh O Negative Antibody Screen NEGATIVE Crossmatch See Detail Preliminary micro results at discharge 10/10/21 23:15 Blood Culture - Preliminary Blood NO GROWTH 96 HOURS 10/10/21 23:13 Blood Culture - Preliminary Blood NO GROWTH 96 HOURS [facility] Active Problem List (Updated 10/14/21 @ 14:32 by Marcelle Jose MD, DC) Palliative care patient (Acute) UTI (urinary tract infection) (Acute) Dependent edema (Acute) GI bleed (Chronic) Descending aortic aneurysm (Chronic) Pneumonia (Acute) COPD (chronic obstructive pulmonary disease) (Chronic) Weakness (Acute) Exertional dyspnea (Acute) Ileus, unspecified (Acute) Elevated troponin (Acute) Weakness (Acute) Thrush, oral (Acute) Discharge planning issues (Acute) Atrial fibrillation (Chronic) Myasthenia gravis (Chronic) Multifocal pneumonia (Acute) Pseudomonas pneumonia (Acute) Aspiration pneumonitis (Acute) Eating disorder (Acute) Debility (Acute) Sepsis (Acute) DVT prophylaxis (Acute) Hypokalemia (Acute) Medical History (Updated 10/14/21 @ 14:32 by Marcelle Jose MD, DC) Aspiration pneumonia B12 deficiency Cardiomyopathy Echo 12/10/2018: EF 60-65%, up from 35% previously; does have diastolic dysfunction Chronic constipation Chronic insomnia Chronic pain on methadone therapy Compression fracture of spine Depression Dysphagia 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 Gastrostomy Tube Placement H/O wisdom tooth extraction S/P appendectomy Family History Father Heart disease Mother Cancer pancreatic Social History Smoking/Tobacco Use Status: Never Smoking risk assessment performed?: Yes Alcohol Intake: current Alcohol Intake frequency: a few times a week Alcohol type: hard liquor Drug use: Never Substance use type: does not use Do you feel safe at home: Yes Do you feel safe in your relationship?: Yes Additional Social history: live with son and his family
[2021-10-15] MEDS: Multivitamin TAB 1 TAB PO (09:00)
[2021-10-15] MEDS: Folic Acid 1 MG TAB PO (09:00)
[2021-10-15] MEDS: Ferrous Sulfate 325 MG TAB PO (09:00)
[2021-10-15] MEDS: Hydrocortisone SOD SUC. 100 MG VIAL 50 MG IVP (09:01)
[2021-10-15] MEDS: Pantoprazole 40 MG VIAL IVP (09:02)
--- NOTE | 2021-10-15 09:32 | CMDISCH_ITS ---
- If Service Date Differs Date of service: 10/15/21 Time of Service: 09:32 LACE Index Scoring Tool - Questions: Length of Stay (in days): 4 - 6 Acuity (Admit via E.D.?): Yes Comorbidities: Congestive Heart Failure, Connective Tissue Disease E.D. Visits: 1 - Answers: Total Score: 13 Risk of Readmission: High Risk Care Management Discharge Reason for Hospitalization: Pneumonia Discharge Plan: Tanja will discharge home with new Home Health nursing, and PT. She will follow up with her PCP and discharge plan of care as directed. Tanja will be transported via [facility] to [facility] for plasmaphoresis prior to returning home later in the day. Patient/Family Education Needs: Discharge instructions, limitations, and follow up plan of care, including Ask Me Three and self management. Services Needed at Discharge: Home Health Care Services, Transportation
--- NOTE | 2021-10-15 10:14 | INDS_ITS ---
Date of service: 10/15/21 Time of Service: 10:14 PT Notes Visit Reasons: CAP,Myasthenia Gravis Physical Therapy Inpatient Discharge Summary Date: 10/15/21 Dates of service: 10/11/2021 through 10/14/2021 This is a clinical summary of care provided for the duration of dates listed above. No charge was made in the completion of this documentation. Referring Doctor: Dr. Parker PT Orders: PT CONSULT: limited ability to ambulate Precautions: contact Patient Profile/Admitting Diagnosis: Patient admitted for medical management of pneumonia, COPD exacerbation, and aortic aneurysm. She has chronic mobility deficits related to myasthenia gravis. 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 Gastrostomy Tube Placement H/O wisdom tooth extraction S/P appendectomy Social History/Home Situation: Patient lives with her son and daughter in law in a private home. States that she walks short distances in the home with a FWW. Current Functional Limitations: States that her mobility has been limited by dizziness for the past several days. She has been walking only very short distances, and had to use the bed fletcher in her room here today, as she did not feel confident that she could get up without severe dizziness. Equipment Owned/DME: FWW Subjective: NT. See most recent WOOD TILE INSTALLATION HELPER notes. Objective: General Observation: NT. See most recent WOOD TILE INSTALLATION HELPER notes. Mental Status: NT. See most recent WOOD TILE INSTALLATION HELPER notes. Pain: NT. See most recent WOOD TILE INSTALLATION HELPER notes. Vitals: BP checked by nursing just prior to PT session, with nursing reporting normal ranges ROM: Right Upper Extremity: Shoulder flexion to 120 degrees. ER to 45 degrees. Elbow and wrist grossly WFL. Left Upper Extremity: Shoulder flexion to 120 degrees. ER to 45 degrees. Elbow and wrist grossly WFL. Right Lower Extremity: Hip and knee ROM grossly WFL Left Lower Extremity: Hip and knee ROM grossly WFL Cervical motion is limited in all planes. Mild reproduction of dizziness with sustained left cervical rotation. Strength: Right Upper Extremity: Shoulder flexion 4/5. Biceps 4/5. Triceps 4-/5. Chief Service Observer is strong and equal. Left Upper Extremity: Shoulder flexion 4/5. Biceps 4/5. Triceps 4-/5. Chief Service Observer is strong and equal. Right Lower Extremity: Hip flexion 4+/5. Quads 4+/5. HS 4/5. Ankle DF 3/5 or greater. Left Lower Extremity: Hip flexion 4+/5. Quads 4+/5. HS 4/5. Ankle DF 3/5 or greater. Bed Mobility/Transfers: supine-sit: independent sit-supine: independent sit-stand: supervision stand-sit: supervision Gait: Able to tolerate up to 20 feet x 2 level surface ambulation using front wheeled walker with full weightbearing requiring contact-guard assist. Dowagers hump worsening. Balance: Static Sitting: Good Dynamic Sitting: Fair Static Standing: fair Dynamic Standing: fair Assessment: Dizziness have resolved. Patient is a 86 year old female referred to physical therapy services with the diagnosis of limited ability to ambulate. Patient presents with clinical signs and symptoms consistent with limited mobility related to acute and chronic medical issues, including pneumonia and COPD exacerbation in the presence of myasthenia gravis. She currently demonstrates the following impairment level findings: 1. Postural deficits 2. Decreased LE strength 3. Decreased activity tolerance Impairments are contributing to the following functional limitations: 1. Unable to ambulate household distances 2. Unable to sit unsupported Goals: Goals X1 week 1. Supine-Sit : independent NOT MET 2. Sit-Supine : independent NOT MET 3. Sit-Stand : independent NOT MET 4. Stand-Sit : independent NOT MET 5. Bed-Chair : supervision with FWW NOT MET 6. Chair-Bed : supervision with FWW NOT MET 7. Gait : supervision with FWW x 25' NOT MET DISCHARGE RECOMMENDATIONS: Home with services : PT TREATMENT CODE/TIME: ME Thank you for the opportunity to participate in the care of this patient. Anamika Miner PT, DPT, CLT [facility] [place], [place]
--- NOTE | 2021-10-15 10:19 | PDOC.HHF2F ---
Home Health Certification Home Health Certification: 1. Encounter Date and Reason I certify that Tanja Carpio was seen by Lila Donohue on 10/15/21 and that I had a [id number] encounter with this patient that meets the physician face to face encounter requirements. 2. Clinical Findings Supporting Skilled Need and Homebound Status I certify that home health services are medically necessary, include either intermittent custodial and/or physical/speech therapy, and that this patient is homebound in that absences from the home require considerable and taxing effort and are infrequent or of short duration, or are attributable to the need to receive medical care. [X] (a) Attached documentation from encounter provides clinical findings supporting skilled need and homebound status (including what assistance patient requires to leave the home). The encounter with the patient was in whole, or in part, for the following medical condition, which is the primary reason for home health care: CAP,Myasthenia Gravis Correction: routine nursing for evaluation, medication oversight, disease monitoring Physical and Occupational Therapy: routine evaluation and treatment, home safety, gait stability. Speech Therapy: routine evaluation and treatment, behavioral swallow rehabilitation with focus on behavioral modifications and options for texture modification(s), as exercise is contraindicated with MG especially during exacerbation(s). Homebound: patient is unable to safely leave the house unattended d/t decreased strength and endurance, unsteady gait. 3. Certification and Authentication I certify that I composed the above information based on my clinical judgement relating to this patient's medical condition and, if applicable, clinical findings communicated to me by the NPP or inpatient physician who performed the Home Health Referral. All further orders will be obtained through (Community Based Physician - PCP)
== END 2021-10-15 09:24 | disposition home health service (06) | DRG 190 ==
LOC: ER 23:40 → MS 23:41
PROVIDERS: Nurse Practitioner Acute Care; Nurse Practitioner Family; Admitting Provider Internal Medicine; Emergency Provider Emergency Medicine; PCP Family Medicine; Visit Provider Internal Medicine
DX: J44.0 Chronic obstructive pulmonary disease with (acute) lower respiratory infection (principal); J18.9 Pneumonia, unspecified organism; I48.20 Chronic atrial fibrillation, unspecified; I50.30 Unspecified diastolic (congestive) heart failure; I42.9 Cardiomyopathy, unspecified; K92.1 Melena; N39.0 Urinary tract infection, site not specified; G70.00 Myasthenia gravis without (acute) exacerbation; I71.4 Abdominal aortic aneurysm, without rupture; I27.20 Pulmonary hypertension, unspecified; Z79.52 Long term (current) use of systemic steroids; Z79.01 Long term (current) use of anticoagulants; Z20.822 Contact with and (suspected) exposure to COVID-19; E53.8 Deficiency of other specified B group vitamins; K59.09 Other constipation; G89.29 Other chronic pain; Z79.891 Long term (current) use of opiate analgesic; F32.A Depression, unspecified; R13.10 Dysphagia, unspecified; Z86.718 Personal history of other venous thrombosis and embolism; M54.50 Low back pain, unspecified; M81.0 Age-related osteoporosis without current pathological fracture; D53.9 Nutritional anemia, unspecified; R42 Dizziness and giddiness; R31.9 Hematuria, unspecified; I87.2 Venous insufficiency (chronic) (peripheral); E16.2 Hypoglycemia, unspecified; E87.6 Hypokalemia; B96.20 Unspecified Escherichia coli [E. coli] as the cause of diseases classified elsewhere; R53.1 Weakness
CPT/HCPCS: 36415; 71275; 80048; 80053; 86850; 86900; 86901; 86920; 87040; 87077; 87081; 87635; 92611; 93005; 93306; 94640; 96365; 96368; 96375; 97113; 97163; 97530; 99285; 74221; 81003; 81015; 83735; 83880; 84439; 84443; 84484; 85014; 85018; 85025; 85610; 85730; 87086; 87186; 93010; 99223; 99232; 99239; J0696; J1720; J2543; J3490; J7512; J7620; P9016

== ENCOUNTER 2021-10-16 02:11 | Outpatient (RCR) | payer MEDICARE, BC, SELFPAY ==
[2021-09-25] MEDS: Normal Saline Flush 10 ML SYR IVP (10:10)
[2021-10-09] MEDS: Normal Saline Flush 10 ML SYR IVP (10:10)
[2021-10-16] MEDS: Normal Saline Flush 10 ML SYR IVP ×2 (11:01→11:31)
== END 2021-10-22 23:59 | disposition home or self-care (01) ==
LOC: INF 02:11
PROVIDERS: PCP Family Medicine; Visit Provider Internal Medicine
DX: G70.00 Myasthenia gravis without (acute) exacerbation (principal)
CPT/HCPCS: 96365; J1300

== ENCOUNTER 2021-10-16 15:00 | Inpatient (IN) | payer MEDICARE, BC, SELFPAY ==
[2021-10-16 15:12] VITALS: BP 149/76; PULSE 85; RESP 10; TEMP 36.4; O2SAT 95
--- NOTE | 2021-10-16 15:15 | RT.EKG_ITS ---
APPROVED REPORT Exam: Resting ECG Reason for Exam: weakness Patient Location: E HR:70 bpm ECG Measurements Heart Rate 70 AXIS FL 226 P 83 QRSd 92 QRS -26 QT 410 T -16 QTc 444 Conclusion NSR Prolonged FL interval.. Nonspecific st changes
--- NOTE | 2021-10-16 15:15 | DI.RAD_ITS ---
Exam(s) XR CHEST 2V PA LATERAL EXAM: XR CHEST 2V PA LATERAL CLINICAL HISTORY: weakness, recent pneumonia TECHNIQUE: COMPARISON: CR XR CHEST 2V PA LATERAL from 09/18/2020 FINDINGS: There is a pectus excavatum deformity and there is tortuosity of the thoracic aorta. Heart is mildly enlarged. There are changes of pulmonary scarring and pleural scarring. No change in appearance co mparison with prior radiographs of September 18, 2020. No evidence of acute consolidation. No pleural effusion. IMPRESSION: No evidence of acute process. RADIATION DOSE DELIVERED: Total DLP
--- NOTE | 2021-10-16 15:24 | W.ED.GENAD ---
Discharge Plan Disposition Patient Disposition: [facility] INPATIENT Condition: Improving Discharge Details Chief Complaint: GenMedical Clinical Impression: Diarrhea, Guaiac positive stools Primary Care Provider: Maribell Choi ED Provider: Gerardo Vázquez Home Meds and New Rx's Prescriptions: No Action sennosides [senna] 8.6 mg tablet 8.6 mg PO BID PRNRF: 0 multivitamin [Multiple Vitamins] Tablet 1 tab PO DAILY RF: 0 hydromorphone [Dilaudid] 2 MG tablet 2 mg PO Q4H PRN MDD 6 PRNRF: 0 melatonin 10 mg Tablet 10 mg PO HS RF: 0 ferrous sulfate 325 MG tablet 325 mg PO DAILY Qty: 0 RF: 0 acidophilus-pectin, citrus 25 million cell -100 mg Tablet 1 cap PO AC Qty: 0 RF: 0 furosemide [Lasix] 20 mg tablet 40 mg PO QAM RF: 0 lidocaine 5 % Adhesive Patch,Medicated 1 patch TOPICAL DAILY PRNRF: 0 folic acid 1 mg Tablet 1 mg PO DAILY RF: 0 gabapentin 300 MG capsule 600 mg PO BID RF: 0 ergocalciferol (vitamin D2) [Vitamin D2] 50,000 UNITS capsule 50,000 units PO .QOWEEK RF: 0 cyanocobalamin (vitamin B-12) 1,000 MCG/ML solution 1 ea IM .QMONTH RF: 0 bisacodyl 10 MG suppository 1 ea NH PRN PRNRF: 0 methadone [Dolophine] 5 MG tablet 5 mg PO BID RF: 0 acetaminophen [Tylenol] 325 mg Tablet 650 mg PO Q4H PRN PRNQty: 30 RF: 0 prednisone 10 MG tablet 20 mg PO DAILY RF: 0 albuterol sulfate [ProAir HFA] 90 mcg/actuation HFA aerosol inhaler 2 puff inhalation QID Qty: 6.7 RF: 0 amoxicillin-pot clavulanate [Augmentin] 875-125 mg tablet 1 tab PO BID Qty: 6 RF: 0 Medical Decision Making 86-year-old delightful female who was discharged from the hospital on October 15. Now with generalized weakness at home, unable to use her walker, with persistent loose watery stools. She also has a sacral ulcer. She arrives to the ER interactive and able to relate her own history. She has been taking antibiotics as prescribed. She is afebrile with a pulse of 85, blood pressure 149/76. She has numerous areas of bruising on her skin without focal tenderness. Her exam otherwise reveals a sacral ulcer that does not appear infected, but warrants ongoing care. Diagnosis includes C. difficile colitis, electrolyte abnormalities, dehydration, persistent pneumonia. Patient IV established, screening laboratory obtained. Chest x-ray: No acute process. Laboratories note white blood cell count of 12.7, hematocrit 38, platelets 186. INR is 1.2. BUN 22, creatinine 1.2, electrolytes are unremarkable. Urinalysis pending. Stool is guaiac positive. As patient is unable to walk, has persistent weakness and loose stool, with evidence of GI bleed I do feel she had to be admitted. We will maintain a high level of vigilance for pending C. difficile test. Of note, patient has myasthenia gravis and was discharged yesterday to her appointment for plasmapheresis in [place] which she states she underwent uneventfully and successfully, with the plan moving forward for q. weekly plasmapheresis. Case discussed with Dr. Parker and patient to be admitted. HPI General Mode of arrival: EMS. Date/Time Provider Initiated Documentation: 10/16/21 15:12. Limitations to Documentation: no limitations. Information obtained by: patient and EMS. History of Present Illness 86 year old F presents to the emergency department with the chief complaint of Weakness and diarrhea after discharge from hospital, described as moderate, Patient reports no radiation. Patient started experiencing this day(s) and it has been constant. No relieving factors improve symptom(s), No exacerbating factors reported . Patient notes other (Numerous loose and watery stools). Patient did receive the following treatments prior to arrival, none Related Data Home Medications Medication Instructions Recorded Confirmed gabapentin 600 mg PO BID 07/08/17 10/16/21 cyanocobalamin (vitamin B-12) 1 ea IM .QMONTH 07/27/17 10/16/21 ergocalciferol (vitamin D2) 50,000 units PO .QOWEEK 07/27/17 10/16/21 [Vitamin D2] bisacodyl 1 ea NH PRN PRN 09/26/17 10/16/21 sennosides 8.6 mg tablet 8.6 mg PO BID PRN 08/02/18 10/16/21 methadone [Dolophine] 5 mg PO BID 08/06/18 10/16/21 acetaminophen [Tylenol] 650 mg PO Q4H PRN PRN #30 tab 08/10/18 10/16/21 multivitamin [Multiple Vitamins] 1 tab PO DAILY 08/16/18 10/16/21 hydromorphone [Dilaudid] 2 mg PO Q4H PRN PRN MDD 6 02/04/20 10/16/21 melatonin 10 mg PO HS 02/04/20 10/16/21 ferrous sulfate 325 mg PO DAILY #0 tab 02/12/20 10/16/21 acidophilus-pectin, citrus 1 cap PO AC #0 tab 02/15/20 10/16/21 furosemide [Lasix] 40 mg PO QAM 09/18/20 10/16/21 prednisone 20 mg PO DAILY 09/19/20 10/16/21 albuterol sulfate [ProAir HFA] 2 puff INHALATION QID #6.7 g 09/20/20 10/16/21 amoxicillin-pot clavulanate 1 tab PO BID #6 tab 10/15/21 10/16/21 [Augmentin] folic acid 1 mg PO DAILY 10/16/21 10/16/21 lidocaine 1 patch TOPICAL DAILY PRN 10/16/21 10/16/21 Previous Rx's Medication Instructions Recorded acetaminophen [Tylenol] 650 mg PO Q4H PRN PRN #30 tab 08/10/18 ferrous sulfate 325 mg PO DAILY #0 tab 02/12/20 acidophilus-pectin, citrus 1 cap PO AC #0 tab 02/15/20 albuterol sulfate [ProAir HFA] 2 puff INHALATION QID #6.7 g 09/20/20 amoxicillin-pot clavulanate 1 tab PO BID #6 tab 10/15/21 [Augmentin] Allergies Allergy/AdvReac Type Severity Reaction Status Date / Time FAHAD Inhibitors Allergy Unverified 10/16/21 18:32 albuterol Allergy Unverified 10/16/21 18:32 Beta-Blockers Allergy Unverified 10/16/21 18:32 (Beta-Adrenergic Bloc Sulfa (Sulfonamide Allergy Hives Verified 10/16/21 18:32 Antibiotics) sulfamethoxazole Allergy Unverified 10/16/21 18:32 [From Bactrim] trimethoprim [From Bactrim] Allergy Unverified 10/16/21 18:32 General Stated Complaint: GenMedical KIERSTEN: 3 Review of Systems Narrative: Multiple bruises. Generalized weak. Unable to use her walker at home. Poor p.o. intake. No falls, denies chest pain, no fever. Currently taking antibiotics. 8 systems reviewed and otherwise negative [facility] Active Problem List Palliative care patient (Acute) UTI (urinary tract infection) (Acute) Dependent edema (Acute) GI bleed (Chronic) Descending aortic aneurysm (Chronic) Pneumonia (Acute) COPD (chronic obstructive pulmonary disease) (Chronic) Weakness (Acute) Exertional dyspnea (Acute) Ileus, unspecified (Acute) Elevated troponin (Acute) Weakness (Acute) Thrush, oral (Acute) Discharge planning issues (Acute) Atrial fibrillation (Chronic) Myasthenia gravis (Chronic) Multifocal pneumonia (Acute) Pseudomonas pneumonia (Acute) Aspiration pneumonitis (Acute) Eating disorder (Acute) Debility (Acute) Sepsis (Acute) DVT prophylaxis (Acute) Hypokalemia (Acute) Medical History Aspiration pneumonia B12 deficiency Cardiomyopathy Echo 12/10/2018: EF 60-65%, up from 35% previously; does have diastolic dysfunction Chronic constipation Chronic insomnia Chronic pain on methadone therapy Compression fracture of spine Depression Dysphagia 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 Gastrostomy Tube Placement H/O wisdom tooth extraction S/P appendectomy Family History Father Heart disease Mother Cancer pancreatic Social History Smoking/Tobacco Use Status: Never Smoking risk assessment performed?: Yes Alcohol Intake: current Alcohol Intake frequency: a few times a week Alcohol type: hard liquor Drug use: Never Substance use type: does not use Do you feel safe at home: Yes Do you feel safe in your relationship?: Yes Additional Social history: live with son and his family Exam Narrative Exam Narrative: GEN: awake, alert, oriented 3. Pleasant, well groomed, interactive. HEAD: Normocephalic, atraumatic ENT: Mucous membranes dry, oropharynx unremarkable, External ear exam unremarkable EYES: PERRL, EOMI NECK: Full ROM, no FABI, no menigismus CHEST/RESP: Nontender, clear to auscultation bilateral, no wheeze/rhonchi/rales CARDIOVASCULAR: RRR, did not appreciate murmur, rub adele. 2+ Rad pulse bilateral ABDOMEN: Soft, nontender, no mass. + Increase bowel sounds. There is a sacral ulcer through the skin superior to the gluteal cleft. Dressing was taken down. There is no purulence, fluctuance or tenderness. No significant erythema or warmth. redressed EXT: Right humerus with ecchymosis, no focal tenderness full ROM, no edema, no rash Skin: Numerous areas of bruising/ecchymosis Neuro: Grossly normal neurologic exam, conversant, interactive. Psych: Speech fluent, thoughts congruent, affect normal Course Vital Signs Vital signs: Vital Signs Temperature 36.4 C L 10/16/21 15:12 Pulse 85 10/16/21 15:12 Respiratory Rate 10 L 10/16/21 15:12 Blood Pressure 149/76 H 10/16/21 15:12 Pulse Oximetry 95 10/16/21 15:12 Temperature 36.4 C L 10/16/21 15:12 Temperature Source Oral 10/16/21 15:12 Pulse 85 10/16/21 15:12 Respiratory Rate 10 L 10/16/21 15:12 Blood Pressure 149/76 H 10/16/21 15:12 Blood Pressure Position Sitting 10/16/21 15:12 Pulse Oximetry 95 10/16/21 15:12 Oxygen Delivery Method Room Air 10/16/21 15:12 Oxygen Flow Rate 0 10/16/21 15:12 Pain Level 5 10/16/21 15:12
[2021-10-16 15:39] LABS: Source Nasal/Nares
--- NOTE | 2021-10-16 15:39 | PDOC.ERCMPRO ---
- If Service Date Differs Date of service: 10/16/21 Time of Service: 15:39 Care Management Progress Note CM meets briefly with Tanja who advises that her family is unable to care for her at home. She states she felt ready for discharge from [facility] yesterday but quickly realized after getting home that she was not ready to leave the hospital. Tanja wishes to go to the [facility], as she has been there before. A referral is sent to the Rehab for consideration. CM will continue to follow.
[2021-10-16 16:13] LABS: Abs Immature Grans 0.08 10^3/uL (0.0-0.06); Absolute Basophil Count 0.01 10^3/uL (0.0-0.2); Absolute Lymphocyte Count 0.29 10^3/uL (1.2-3.4); Absolute Monocyte Count 0.23 10^3/uL (0.1-0.8); Basophils % 0.1; HCT 38.5 % (36.0-46.0); HGB 11.7 g/dL (11.2-15.7); Immature Grans % 0.6; Lymphocytes % 2.3; MCH 30.6 pg (27.0-33.0); MCHC 30.4 % (32.0-36.0); MCV 100.8 fL (80-95); Monocytes % 1.8; Neutrophils % 95.2; Nucleated RBC 0 %; Platelet Count 186 10^3/uL (130-400); RBC 3.82 10^6/uL (3.93-5.22); RDW 19.9 % (11.7-14.6); WBC 12.71 10^3/uL (4.4-10.8)
[2021-10-16 16:27] LABS: ALT 22 U/L (14-59); AST 24 U/L (15-37); Albumin 4.6 g/dL (3.4-5.0); Alkaline Phosphatase 37 U/L (46-116); Anion Gap 10.3 mmol/L (3-11); BUN 22 mg/dL (7-18); Bilirubin, Total 0.6 mg/dL (0.2-1.0); CO2 25.7 mmol/L (21.0-32.0); CREATININE 1.2 mg/dL (0.55-1.02); Calcium 8.8 mg/dL (8.5-10.1); Chloride 106 mmol/L (98-107); Glucose 123 mg/dL (74-106); Sodium 142 mmol/L (136-145)
[2021-10-16 16:29] LABS: INR 1.2 (0.9-1.1); PTT Activated 28.5 sec (21.0-27.5); Prothrombin Time 12.2 sec (9.3-11.0)
[2021-10-16 16:35] LABS: Potassium 3.7 mmol/L (3.5-5.1)
[2021-10-16] MEDS: Normal Saline 1,000 ML 150 ML IV (18:23)
[2021-10-16 18:57] LABS: C Diff PCR Negative (Negative)
[2021-10-16 19:32] LABS: Bilirubin Negative (Negative); Blood Negative (Negative); Clarity Clear (Clear); Glucose Negative (Negative); Ketones Trace mg/dL (Negative); Leukocyte Esterase Negative (Negative); Nitrite Negative (Negative); Specific Gravity >= 1.030 (1.005-1.025); Urobilinogen 0.2 EU/dL (Up TO 0.2); pH 5.5 (5-8)
[2021-10-16 19:39] VITALS: BP 135/68; PULSE 71; RESP 18; TEMP 35.6; O2SAT 97
[2021-10-16 19:41] LABS: Epithelial Cells Few HPF (Negative); RBC 0-2 HPF (0-2); WBC 0-2 HPF (0-5)
[2021-10-16 19:42] LABS: Bacteria Negative HPF (Negative); C & S Indicated? No; Casts 0-2 Hyaline LPF (Negative); Crystals Negative HPF (Negative); Mucus Trace (Negative)
[2021-10-16 20:23] LABS: COVID-19 PCR Negative (Negative)
[2021-10-16] MEDS: Hydrocortisone SOD SUC. 100 MG VIAL IVP (20:44)
[2021-10-16] MEDS: Cholestyramine/Aspartame PKT 1 EACH PO (20:45)
[2021-10-16] MEDS: Methadone 5 MG TAB PO (20:46)
[2021-10-16] MEDS: Gabapentin 300 MG CAP 600 MG PO (20:46)
[2021-10-16] MEDS: Albuterol HFA 8 GM 60 PUFF INH IH (20:47)
[2021-10-16] MEDS: Melatonin 3 MG TAB 9 MG PO (21:17)
--- NOTE | 2021-10-16 21:37 | HPE_ITS ---
Date of service: 10/16/21 Time of Service: 21:37 Assessment and Plan Assessment and plan (1) Diarrhea: Status: Acute Assessment and plan: C.diff ruled out. COVID-19 ruled out. Will obtain remaining stool studies for infection. It is possible that diarrhea is a side effect of abx, but the patient is also immunosuppressed, and infection needs to be ruled out. Hold augmentin as there is no evidence of PNA on today's XR. Start BioK+ and cholestyramine. Consider metronidazole empirically if there is still leucocytosis on bloodwork tomrorrow. (2) Guaiac positive stools: Status: Acute Assessment and plan: Per D/c summary,on last admission, her hemoccult was negative. It is positive twice so far today. The patient's H/H is stable, but she did require blood transfusion on her last admission with us just recently, at which point her systemic anticoagulation was stopped. Heme + stools are certainly possible with diarrhea/any colitis. Consider surgical consult for further workup. Trend H/H. The patient was asked to consider if she would be interested to have an EGD/colonoscopy. Given stability of her H/H, I am ordering a diet. Surgical consult if the patient is interested in EGD/Colonoscopy. (3) Myasthenia gravis: Status: Chronic Assessment and plan: Will provide with stress dose steroids. 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 (4) Atrial fibrillation: Status: Chronic Assessment and plan: Paroxysmal, currently in SR. No longer on anticoagulation due to anemia, which we now know is heme +. Would hold off on resumption of anticoagulation given above. She is not currently on medications for rate control. Qualifiers: Atrial fibrillation type: paroxysmal Qualified Code(s): I48.0 - Pa roxysmal atrial fibrillation (5) Ambulatory dysfunction: Status: Acute Assessment and plan: Will trial stress dose steroids. Consult PT/OT. Monitor for improvement. May require placement to subacute rehab facility. (6) Decubitus ulcer of sacral area: Status: Acute Assessment and plan: Wound care consult. (7) DVT prophylaxis: Status: Acute Assessment and plan: SCDs. Hold chemical DVT ppx in setting of Heme + stools. (8) Discharge planning issues: Status: Acute Assessment and plan: Full code Will need subacute rehab placement on discharge. Care management to consider location of this as the patient is to get plasmapharesis at [facility] on weekly basis. History of Present Illness History of Present Illness Chief Complaint: Weakness, inability to ambulate Narrative: Ms Carpio is an 86 year old female with PMHx of myasthenia gravis (plasmopharesis and steroid-dependent via AV fistula), as well as h/o dysphagia secondary to MG, recent admission for an aspiration vs community acquired pneumonia, Afib, previously on anticoagulation, which was discontinued during her last admission due to anemia (heme negative then, per D/c summary, but requiring transfusion of 2 units of pRBCs), who was just discharged from our facility yesterday on augmentin after her admission for PNA, but returned to [facility] ED today c/o at least 10 bouts of black diarrhea and generalized weakness with inability to walk even with her usual walker. The patient states that she had diarrhea for the last two and a half days of her admission with us, but that it got a lot worse today. She denies fevers, abdominal pain, n/v, but states that her bottom has been feeling raw from so much diarrhea. She has not seen shubham blood. She states she felt dizzy trying to get up from the toilet. She did receive her usual plasmapharesis treatment at [facility] yesterday after her discharge. The patient was heme + in the ED with Hgb of 11.7 (it was 11.2 on 10/14/21). She tested negative for C.Diff and for COVID-19. Hospitalist admission was requested. The patient states that her family cannot take care of her at home since she cannot get the bathroom (her daughter in law told her so) and that her family is not available to care for her for the remainder of the week because it is [facility]. She would like to be placed to a subacute rehab facility, preferably locally. I spoke with her about the fact that her plasmapharesis treatments may be a barrier to that, so she will discuss her options with care management. Review of Systems All systems reviewed & are unremarkable except as noted in HPI and below PFSH Active Problem List Palliative care patient (Acute) UTI (urinary tract infection) (Acute) Dependent edema (Acute) GI bleed (Chronic) Descending aortic aneurysm (Chronic) Pneumonia (Acute) COPD (chronic obstructive pulmonary disease) (Chronic) Weakness (Acute) Exertional dyspnea (Acute) Ileus, unspecified (Acute) Elevated troponin (Acute) Weakness (Acute) Thrush, oral (Acute) Discharge planning issues (Acute) Atrial fibrillation (Chronic) Myasthenia gravis (Chronic) Multifocal pneumonia (Acute) Pseudomonas pneumonia (Acute) Aspiration pneumonitis (Acute) Eating disorder (Acute) Debility (Acute) Sepsis (Acute) DVT prophylaxis (Acute) Hypokalemia (Acute) Medical History Aspiration pneumonia B12 deficiency Cardiomyopathy Echo 12/10/2018: EF 60-65%, up from 35% previously; does have diastolic dysfunction Chronic constipation Chronic insomnia Chronic pain on methadone therapy Compression fracture of spine Depression Dysphagia 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 Gastrostomy Tube Placement H/O wisdom tooth extraction S/P appendectomy Family History Father Heart disease Mother Cancer pancreatic Social History Smoking/Tobacco Use Status: Never Smoking risk assessment performed?: Yes Alcohol Intake: current Alcohol Intake frequency: a few times a week Alcohol type: hard liquor Drug use: Never Substance use type: does not use Do you feel safe at home: Yes Do you feel safe in your relationship?: Yes Additional Social history: live with son and his family Meds Allergies and Home Medications Allergies Allergy/AdvReac Type Severity Reaction Status Date / Time FAHAD Inhibitors Allergy Unverified 10/16/21 18:32 albuterol Allergy Unverified 10/16/21 18:32 Beta-Blockers Allergy Unverified 10/16/21 18:32 (Beta-Adrenergic Bloc Sulfa (Sulfonamide Allergy Hives Verified 10/16/21 18:32 Antibiotics) sulfamethoxazole Allergy Unverified 10/16/21 18:32 [From Bactrim] trimethoprim [From Bactrim] Allergy Unverified 10/16/21 18:32 Home Medications Medication Instructions Recorded Confirmed Type gabapentin 600 mg PO BID 07/08/17 10/16/21 History cyanocobalamin (vitamin B-12) 1 ea IM .QMONTH 07/27/17 10/16/21 History ergocalciferol (vitamin D2) 50,000 units PO .QOWEEK 07/27/17 10/16/21 History [Vitamin D2] bisacodyl 1 ea MA PRN PRN 09/26/17 10/16/21 History sennosides 8.6 mg tablet 8.6 mg PO BID PRN 08/02/18 10/16/21 History methadone [Dolophine] 5 mg PO BID 08/06/18 10/16/21 History acetaminophen [Tylenol] 650 mg PO Q4H PRN PRN #30 tab 08/10/18 10/16/21 Rx multivitamin [Multiple Vitamins] 1 tab PO DAILY 08/16/18 10/16/21 History hydromorphone [Dilaudid] 2 mg PO Q4H PRN PRN MDD 6 02/04/20 10/16/21 History melatonin 10 mg PO HS 02/04/20 10/16/21 History ferrous sulfate 325 mg PO DAILY #0 tab 02/12/20 10/16/21 Rx acidophilus-pectin, citrus 1 cap PO AC #0 tab 02/15/20 10/16/21 Rx furosemide [Lasix] 40 mg PO QAM 09/18/20 10/16/21 History prednisone 20 mg PO DAILY 09/19/20 10/16/21 History albuterol sulfate [ProAir HFA] 2 puff INHALATION QID #6.7 g 09/20/20 10/16/21 Rx amoxicillin-pot clavulanate 1 tab PO BID #6 tab 10/15/21 10/16/21 Rx [Augmentin] folic acid 1 mg PO DAILY 10/16/21 10/16/21 History lidocaine 1 patch TOPICAL DAILY PRN 10/16/21 10/16/21 History Exam Narrative Exam Narrative: General: Pleasant frail elderly female, [id number], actually looks stronger/more energetic today than when I last admitted her Neurological: Trina, does appear to have generalized weakness with droopy eyelids, but no focal deficits Psychiatric: Appropriate speech pattern/content; anxious when talking about her disposition. Skin: Visible skin on my exam is intact; per nursing, there is a non-infected sacral decubitus wound HEENT: Atraumatic, normocephalic, EOMI, dry MM, clear oropharynx, no submandibular or cervical lymphadenopathy, no goiter or JVD Cardiovascular: Slightly irregular rhythm, no m/r/g Lungs: faint crackles at B bases Gastrointestinal: soft, nontender, nondistended Genitourinary: deferred Extremities: +1 Edema BLE's up to the knees. Wearing SCDs. Results Imaging Additional studies: CXR; No evidence of acute process. EKG: sinus arrhythmia, HR 70, 1st degree AV block with MA of 226 ms, no acute ischemia Labs Result diagrams: 10/16/21 16:00 10/16/21 16:00 Labs: Laboratory Results - last 24 hr 10/16/21 10/16/21 10/16/21 15:35 16:00 16:00 WBC RBC Hgb Hct MCV MCH MCHC RDW Plt Count MPV Immature Gran % Neutrophils % Lymphocytes % Monocytes % Eosinophils % Basophils % Nucleated RBC % Absolute Neutrophils Absolute Lymphocytes Absolute Monocytes Absolute Eosinophils Absolute Basophils PT 12.2 H INR 1.2 H APTT 28.5 H Sodium 142 Potassium 3.7 D Chloride 106 Carbon Dioxide 25.7 Anion Gap 10.3 BUN 22 H Creatinine 1.2 H Estimated GFR/1.73 m2 42.80 Glucose 123 H Calcium 8.8 Magnesium 2.0 Total Bilirubin 0.6 AST 24 ALT 22 Alkaline Phosphatase 37 L Total Protein 6.0 L Albumin 4.6 Urine Color Urine Clarity Urine pH Ur Specific [place] Urine Protein Urine Ketones Urine Blood Urine Nitrite Urine Bilirubin Urine Urobilinogen Ur Leukocyte Esterase Urine RBC Urine WBC Ur Epithelial Cells Urine Crystals Urine Bacteria Urine Casts Urine Mucus Ur Culture Indicated? Urine Glucose Stl C.difficile Tox PCR COVID-19 Source Nasal/Nares SARS-CoV-2 (PCR) Negative 10/16/21 10/16/21 10/16/21 16:00 16:34 19:15 WBC 12.71 H RBC 3.82 L Hgb 11.7 Hct 38.5 MCV 100.8 H MCH 30.6 MCHC 30.4 L RDW 19.9 H Plt Count 186 MPV 10.0 Immature Gran % 0.6 Neutrophils % 95.2 Lymphocytes % 2.3 Monocytes % 1.8 Eosinophils % 0.0 Basophils % 0.1 Nucleated RBC % 0 Absolute Neutrophils 12.10 H Absolute Lymphocytes 0.29 L Absolute Monocytes 0.23 Absolute Eosinophils 0.00 Absolute Basophils 0.01 PT INR APTT Sodium Potassium Chloride Carbon Dioxide Anion Gap BUN Creatinine Estimated GFR/1.73 m2 Glucose Calcium Magnesium Total Bilirubin AST ALT Alkaline Phosphatase Total Protein Albumin Urine Color Yellow Urine Clarity Clear Urine pH 5.5 Ur Specific [place] >= 1.030 H Urine Protein Trace H Urine Ketones Trace H Urine Blood Negative Urine Nitrite Negative Urine Bilirubin Negative Urine Urobilinogen 0.2 Ur Leukocyte Esterase Negative Urine RBC 0-2 Urine WBC 0-2 Ur Epithelial Cells Few Urine Crystals Negative Urine Bacteria Negative Urine Casts 0-2 Hyaline Urine Mucus Trace Ur Culture Indicated? No Urine Glucose Negative Stl C.difficile Tox PCR Negative COVID-19 Source SARS-CoV-2 (PCR) Last Vital Signs Temp 35.6 C L 10/16/21 19:39 Pulse 71 10/16/21 19:39 Resp 18 10/16/21 19:39 BP 135/68 10/16/21 19:39 Pulse Ox 97 10/16/21 19:39
[2021-10-17 00:02] VITALS: BP 137/71; PULSE 64; RESP 18; TEMP 35.7; O2SAT 97
[2021-10-17] MEDS: Hydrocortisone SOD SUC. 100 MG VIAL 50 MG IVP (04:25)
[2021-10-17 05:38] LABS: Abs Immature Grans 0.05 10^3/uL (0.0-0.06); Absolute Lymphocyte Count 0.53 10^3/uL (1.2-3.4); Absolute Monocyte Count 0.27 10^3/uL (0.1-0.8); Absolute Neutrophil Count 7.65 10^3/uL (1.2-6.7); HCT 30.5 % (36.0-46.0); HGB 9.7 g/dL (11.2-15.7); Immature Grans % 0.6; Lymphocytes % 6.2; MCH 30.9 pg (27.0-33.0); MCHC 31.8 % (32.0-36.0); MCV 97.1 fL (80-95); Monocytes % 3.2; Nucleated RBC 0 %; Platelet Count 135 10^3/uL (130-400); RBC 3.14 10^6/uL (3.93-5.22); RDW 19.3 % (11.7-14.6); RDW-SD 68.2 fL
[2021-10-17 05:52] LABS: Anion Gap 9.3 mmol/L (3-11); BUN 19 mg/dL (7-18); CO2 23.7 mmol/L (21.0-32.0); CREATININE 0.9 mg/dL (0.55-1.02); Chloride 110 mmol/L (98-107); Estimated GFR 59.65 (mL/min/1.73m2); Glucose 81 mg/dL (74-106); PHOSPHORUS 3.9 mg/dL (2.6-4.7); Potassium 3.7 mmol/L (3.5-5.1); Sodium 143 mmol/L (136-145)
[2021-10-17 08:42] VITALS: BP 145/79; PULSE 76; RESP 16; TEMP 36.8; O2SAT 96
--- NOTE | 2021-10-17 09:31 | PGE_ITS ---
Date of Service Date of service: 10/17/21 Time of Service: 09:31 Assessment and Plan Assessment and plan (1) Diarrhea: Status: Acute Assessment and plan: C.diff ruled out. COVID-19 ruled out. Will obtain remaining stool studies for infection. It is possible that diarrhea is a side effect of abx, but the patient is also immunosuppressed, and infection needs to be ruled out. Hold augmentin as there is no evidence of PNA on today's XR. Start BioK+ and cholestyramine. (2) Guaiac positive stools: Status: Acute Assessment and plan: Per D/c summary,on last admission, her hemoccult was negative. It is positive twice so far today. The patient's H/H is stable, but she did require blood transfusion on her last admission with us just recently, at which point her systemic anticoagulation was stopped. Heme + stools are certainly possible with diarrhea/any colitis. Consider surgical consult for further workup. Trend H/H. The patient was asked to consider if she would be interested to have an EGD/colonoscopy. Given stability of her H/H, I am ordering a diet. Surgical consult if the patient is interested in EGD/Colonoscopy. (3) Myasthenia gravis: Status: Chronic Assessment and plan: Will provide with stress dose steroids. 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 (4) Atrial fibrillation: Status: Chronic Assessment and plan: Paroxysmal, currently in SR. No longer on anticoagulation due to anemia, which we now know is heme +. Would hold off on resumption of anticoagulation given above. She is not currently on medications for rate control. Qualifiers: Atrial fibrillation type: paroxysmal Qualified Code(s): I48.0 - Paroxysmal atrial fibrillation (5) Ambulatory dysfunction: Status: Acute Assessment and plan: Will trial stress dose steroids. Consult PT/OT. Monitor for improvement. May require placement to subacute rehab facility. (6) Decubitus ulcer of sacral area: Status: Acute Assessment and plan: Wound care consult. (7) DVT prophylaxis: Status: Acute Assessment and plan: SCDs. Hold chemical DVT ppx in setting of Heme + stools. (8) Discharge planning issues: Status: Acute Assessment and plan: Full code Will need subacute rehab placement on discharge. Care management to consider location of this as the patient is to get plasmapharesis at [facility] on weekly basis. discussed with Dr Bell Subjective Subjective Patient reports: no new complaints Interval history since last seen: feels much better today, diarrhea improved, tolerating po intake. Exam Const General: cooperative, frail appearing and ill appearing chronically Nutritional Appearance: thin Orientation: alert, awake and oriented x3 HENMT Head: normal to inspection, normocephalic and atraumatic Mouth: oral mucosae normal Resp Effort & Inspection: normal respiratory effort and able to speak in complete sentences Auscultation: diminished lung sounds (bases bilaterally) Cardio Rate: regular rate Rhythm: regular rhythm GI Inspection: normal to inspection Palpation: soft and nontender Skin Lesions: lesion noted (sacral decubitus) Neuro General: patient alert, patient awake and patient oriented x3 Cognition: normal cognition Speech: speech normal Extrem General: normal to inspection, full ROM and no pedal edema Objective Last Vital Signs Temp 36.8 C 10/17/21 08:42 Pulse 76 10/17/21 08:42 Resp 16 10/17/21 08:42 BP 145/79 H 10/17/21 08:42 Pulse Ox 96 10/17/21 08:42 Laboratory Results - last 24 hr 10/16/21 10/16/21 10/16/21 15:35 16:00 16:00 WBC RBC Hgb Hct MCV MCH MCHC RDW Plt Count MPV Immature Gran % Neutrophils % Lymphocytes % Monocytes % Eosinophils % Basophils % Nucleated RBC % Absolute Neutrophils Absolute Lymphocytes Absolute Monocytes Absolute Eosinophils Absolute Basophils PT 12.2 H INR 1.2 H APTT 28.5 H Sodium 142 Potassium 3.7 D Chloride 106 Carbon Dioxide 25.7 Anion Gap 10.3 BUN 22 H Creatinine 1.2 H Estimated GFR/1.73 m2 42.80 Glucose 123 H Calcium 8.8 Phosphorus Magnesium 2.0 Total Bilirubin 0.6 AST 24 ALT 22 Alkaline Phosphatase 37 L Total Protein 6.0 L Albumin 4.6 Urine Color Urine Clarity Urine pH Ur Specific [place] Urine Protein Urine Ketones Urine Blood Urine Nitrite Urine Bilirubin Urine Urobilinogen Ur Leukocyte Esterase Urine RBC Urine WBC Ur Epithelial Cells Urine Crystals Urine Bacteria Urine Casts Urine Mucus Ur Culture Indicated? Urine Glucose Stl C.difficile Tox PCR COVID-19 Source Nasal/Nares SARS-CoV-2 (PCR) Negative 10/16/21 10/16/21 10/16/21 16:00 16:34 19:15 WBC 12.71 H RBC 3.82 L Hgb 11.7 Hct 38.5 MCV 100.8 H MCH 30.6 MCHC 30.4 L RDW 19.9 H Plt Count 186 MPV 10.0 Immature Gran % 0.6 Neutrophils % 95.2 Lymphocytes % 2.3 Monocytes % 1.8 Eosinophils % 0.0 Basophils % 0.1 Nucleated RBC % 0 Absolute Neutrophils 12.10 H Absolute Lymphocytes 0.29 L Absolute Monocytes 0.23 Absolute Eosinophils 0.00 Absolute Basophils 0.01 PT INR APTT Sodium Potassium Chloride Carbon Dioxide Anion Gap BUN Creatinine Estimated GFR/1.73 m2 Glucose Calcium Phosphorus Magnesium Total Bilirubin AST ALT Alkaline Phosphatase Total Protein Albumin Urine Color Yellow Urine Clarity Clear Urine pH 5.5 Ur Specific [place] >= 1.030 H Urine Protein Trace H Urine Ketones Trace H Urine Blood Negative Urine Nitrite Negative Urine Bilirubin Negative Urine Urobilinogen 0.2 Ur Leukocyte Esterase Negative Urine RBC 0-2 Urine WBC 0-2 Ur Epithelial Cells Few Urine Crystals Negative Urine Bacteria Negative Urine Casts 0-2 Hyaline Urine Mucus Trace Ur Culture Indicated? No Urine Glucose Negative Stl C.difficile Tox PCR Negative COVID-19 Source SARS-CoV-2 (PCR) 10/17/21 10/17/21 05:25 05:25 WBC 8.50 D RBC 3.14 L Hgb 9.7 L Hct 30.5 L D MCV 97.1 H D MCH 30.9 MCHC 31.8 L RDW 19.3 H Plt Count 135 MPV 10.0 Immature Gran % 0.6 Neutrophils % 90.0 Lymphocytes % 6.2 Monocytes % 3.2 Eosinophils % 0.0 Basophils % 0.0 Nucleated RBC % 0 Absolute Neutrophils 7.65 H Absolute Lymphocytes 0.53 L Absolute Monocytes 0.27 Absolute Eosinophils 0.00 Absolute Basophils 0.00 PT INR APTT Sodium 143 Potassium 3.7 Chloride 110 H Carbon Dioxide 23.7 Anion Gap 9.3 BUN 19 H Creatinine 0.9 Estimated GFR/1.73 m2 59.65 Glucose 81 Calcium 8.0 L Phosphorus 3.9 Magnesium 2.0 Total Bilirubin AST ALT Alkaline Phosphatase Total Protein Albumin Urine Color Urine Clarity Urine pH Ur Specific [place] Urine Protein Urine Ketones Urine Blood Urine Nitrite Urine Bilirubin Urine Urobilinogen Ur Leukocyte Esterase Urine RBC Urine WBC Ur Epithelial Cells Urine Crystals Urine Bacteria Urine Casts Urine Mucus Ur Culture Indicated? Urine Glucose Stl C.difficile Tox PCR COVID-19 Source SARS-CoV-2 (PCR)
[2021-10-17] MEDS: Folic Acid 1 MG TAB PO (10:12)
[2021-10-17] MEDS: Gabapentin 300 MG CAP 600 MG PO ×2 (10:12→19:10)
[2021-10-17] MEDS: Multivitamin TAB 1 TAB PO (10:12)
[2021-10-17] MEDS: Methadone 5 MG TAB PO ×2 (10:13→19:10)
[2021-10-17] MEDS: Ferrous Sulfate 325 MG TAB PO (10:13)
[2021-10-17] MEDS: Cholestyramine/Aspartame PKT 1 EACH PO ×2 (10:14→18:24)
[2021-10-17] MEDS: Albuterol HFA 8 GM 60 PUFF INH IH (15:37)
[2021-10-17] MEDS: predniSONE 20 MG TAB PO (15:37)
[2021-10-17 17:00] VITALS: BP 130/69; PULSE 73; RESP 20; TEMP 36.2; O2SAT 100
[2021-10-17] MEDS: Melatonin 3 MG TAB 9 MG PO (19:17)
[2021-10-17 23:21] VITALS: BP 133/73; PULSE 76; RESP 18; TEMP 36.7; O2SAT 100
[2021-10-18] MEDS: Ferrous Sulfate 325 MG TAB PO (07:56)
[2021-10-18] MEDS: predniSONE 20 MG TAB 40 MG PO (07:57)
[2021-10-18] MEDS: Gabapentin 300 MG CAP 600 MG PO ×2 (07:57→19:19)
[2021-10-18] MEDS: Multivitamin TAB 1 TAB PO (07:57)
[2021-10-18] MEDS: Methadone 5 MG TAB PO ×2 (07:57→19:19)
[2021-10-18] MEDS: Folic Acid 1 MG TAB PO (07:57)
[2021-10-18 08:00] VITALS: BP 144/79; PULSE 68; RESP 12; TEMP 36.6; O2SAT 98
--- NOTE | 2021-10-18 08:13 | INITIAL_ITS ---
- If Service Date Differs Date of service: 10/18/21 Time of Service: 08:13 Care Management Initial Assess REASON FOR HOSPITALIZATION:: SIRS, ambulatory dysfrunction PAST MEDICAL HISTORY/PAST SURGICAL HISTORY:: Active Problem List . Palliative care patient (Acute). UTI (urinary tract infection) (Acute). Dependent edema (Acute). GI bleed (Chronic). Descending aortic aneurysm (Chronic). Pneumonia (Acute). COPD (chronic obstructive pulmonary disease) (Chronic). Weakness (Acute). Exertional dyspnea (Acute). Ileus, unspecified (Acute). Elevated troponin (Acute). Weakness (Acute). Thrush, oral (Acute). Discharge planning issues (Acute). Atrial fibrillation (Chronic). Myasthenia gravis (Chronic). Multifocal pneumonia (Acute). Pseudomonas pneumonia (Acute). Aspiration pneumonitis (Acute). Eating disorder (Acute). Debility (Acute). Sepsis (Acute). DVT prophylaxis (Acute). Hypokalemia (Acute). Medical History . Aspiration pneumonia. B12 deficiency. Cardiomyopathy. Echo 12/10/2018: EF 60-65%, up from 35% previously; does have diastolic dysfunction. Chronic constipation. Chronic insomnia. Chronic pain. on methadone therapy. Compression fracture of spine. Depression. Dysphagia. 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 Lumbago. Macrocytic anemia. Malnutrition. Osteoporosis. Peripheral neuropathic pain. Post herpetic neuralgia. Sacral decubitus ulcer, stage IV. Surgical History . Abdominal fistula (08/17/18). repair by Dr Elizalde. AV fistula. RUE. Gastrostomy complication (08/17/18). gastric enteric fistula repair by Dr Elizalde. Gastrostomy infection (08/10/18). Dr Elizalde, excised tissue at old g-tube site and closed g-tube tract surgically. Gastrostomy Tube Placement. H/O wisdom tooth extraction. S/P appendectomy PREVIOUS FUNCTIONAL STATUS/SOCIAL/FAMILY SUPPORTS:: Tanja lives in [place] with her son, Frankie, and [id number], Werner. Tanja has three additional children: one son in [place], one in [place], and a daughter in [place]. 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 Tanja reports she is independent with her medications and her family helps her with bathing, dressing, and meal preparation. She does not drive and relies on [facility] and family for transportation to appointments. CURRENT FUNCTIONAL STATUS:: Tanja was sitting up in a chair when CM met with her. She was pleasant and engaged easily with CM, known to her from previous admisions. Tanja shared that she felt that she was ready for discharge when she went home earlier in the week but discovered that the diarrhea she had developed worsened. She was no longer able to toilet herself and her family felt they were no longer able to care for her at home. She has asked to go to a rehab facility for short term rehab to regain her strength and ability to return home. When asked if she felt it might evolve into editing internship care, Tanja was quite clear that she did not see that something she would be agreeable to. Tanja requires plasmaphoresis treatments, now weekly, at [facility]. CM discussed that with her and the fact that the cost of transportation may be a barrier. Tanja informed CM that she has the means to pay for the transportation if necessary. ADVANCE DIRECTIVES:: On file at [facility]. Son Frankie ZAMORA Has patient been provided with info about the portal/API?: Yes Did the patient sign up for the portal?: No CODE STATUS:: Full Code INSURANCE COVERAGE / FINANCIAL ISSUES:: Medicare. BS CURRENT HOME/COMMUNITY SERVICES/EQUIPMENT:: Tanja has Home Health nursing and PT services and she sees a neurologist at [facility]. She utilizes a walker to ambulate at home and has a shower seat. PRIMARY CARE PHYSICIAN:: Maribell Choi MD POTENTIAL DISCHARGE NEEDS:: Follow up appointment with PCP. PATIENT/FAMILY EDUCATION NEEDS:: Discharge instructions, limitations, and follow up plan of care, including Ask Me Three and self management. TRANSPORTATION:: to be determined by disposition PLAN:: Tanja will likely transfer to a SNF for short term rehab before returning home. She will follow up with the facility providers and plan of care and transport will be determined by disposition. CM will continue to support Tanja and assess for discharge planning needs. Readmission - Within the Past 30 Days Yes or No: Y - Date of First Admission Date of Admission: 10/10/21 - Date of this Admission Date of Admission: 10/16/21 - Office Visit Since 1st Admission Have you seen your PCP in the office since discharge?: No - I. Interview patient and/or Family Difficulty reaching your doctor or getting an office appt?: No Have you had trouble purchasing/ or taking medication?: No Have you had trouble with getting meals at home?: No Did you feel ready for discharge when you left the last time: Yes Were services received that you thought were set up on disch: Yes How do you think you became sick enough to come back?: [place] ready for discharge but when she got home realized she could not take care of herself nor could her family that she lives with. - ED visits How many ED visits in the past 12 months: 2 - Assessment for Readmission Summary of readmission circumstances, based upon interviews: Tanja was discharged from [facility] to [facility] for an outpatient plasmaphoresis treatment on 10/15/21 and then was transported home. She felt ready for discharge [facility] and was seen by PT who recommended PT. Patient got home and felt weak. She maintains that she developed diarrhea while in the hospital but that it was much worse at home. Her family, that she lives with, is unable to care for her due to the holiday and Tanja's inability to toilet herself independently. Based on the above, Tanja decided she wanted to go to a SNF so returned to the ED the next day.
[2021-10-18] MEDS: Lidocaine 5% Patch 1 PATCH TP (09:17)
--- NOTE | 2021-10-18 09:55 | IN_ITS ---
Date of service: 10/18/21 Time of Service: 09:55 PT Notes Visit Reasons: Suspected C.Diff,SIRS,Ambulatory dysfunction Inpatient Physical Therapy Evaluation Date: 10/18/21 Referring Doctor: Shreya Parker MD PT Orders: PT CONSULT: Limited ability Precautions: Low endurance, needs frequent rest. Activity as tolerated. Soft cervical collar on when ambulating. Patient Profile/Admitting Diagnosis: Tanja is an 86-year-old female with myasthenia gravis status post plasmapheresis on 10/15/2021 and atrial fibrillation who returned to the ED after being discharged to home on 10/15/2021 due to increasing generalized weakness, inability to use walker, and persistent loose stools. Patient is diagnosed with follow-up positive stool, diarrhea, ambulatory dysfunction, and decubitus of sacral area. Active Problem List Palliative care patient (Acute) UTI (urinary tract infection) (Acute) Dependent edema (Acute) GI bleed (Chronic) Descending aortic aneurysm (Chronic) Pneumonia (Acute) COPD (chronic obstructive pulmonary disease) (Chronic) Weakness (Acute) Exertional dyspnea (Acute) Ileus, unspecified (Acute) Elevated troponin (Acute) Weakness (Acute) Thrush, oral (Acute) Discharge planning issues (Acute) Atrial fibrillation (Chronic) Myasthenia gravis (Chronic) Multifocal pneumonia (Acute) Pseudomonas pneumonia (Acute) Aspiration pneumonitis (Acute) Eating disorder (Acute) Debility (Acute) Sepsis (Acute) DVT prophylaxis (Acute) Hypokalemia (Acute) PMHX: Medical History Aspiration pneumonia B12 deficiency Cardiomyopathy Echo 12/10/2018: EF 60-65%, up from 35% previously; does have diastolic dysfunction Chronic constipation Chronic insomnia Chronic pain on methadone therapy Compression fracture of spine Depression Dysphagia 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 Gastrostomy Tube Placement H/O wisdom tooth extraction S/P appendectomy Social History/Home Situation: Patient lives with her son and [id number] in a private home with 3 steps to enter through the kitchen with a rail on 1 side. States that she is able to walk from her bedroom to the bathroom outside her room for about 30 feet using a 4WW. Equipment Owned/DME: 4WW Subjective: Agreeable to PT consult. Hopeful that she can have a short-term rehab stay to get her strength back. Denies dizziness, chest pain, and lightheadedness throughout session. Did report of neck pain during ambulation as she did not have her soft cervical collar on. Objective: General Observation: Seated on chair. Dowager's hump from multiple sclerosis apparent. Mental Status: A&Ox3. Pleasant and cooperative Pain: Reported pain in the neck at 3?4/10 during ambulation without soft cervical collar ROM: Right Upper Extremity: Shoulder Flexion lacks the last last 25% of movement. Shoulder abduction lacks the last last 25% of movement. Elbow flexion WFL. Wrist flexion WFL. Functional opening and closing of hand WFL. Left Upper Extremity: Shoulder Flexion lacks the last last 25% of movement. Shoulder abduction lacks the last last 25% of movement. Elbow flexion WFL. Wrist flexion WFL. Functional opening and closing of hand WFL. Right Lower Extremity: Hip flexion WFL. Hip abduction WFL. Knee flexion WFL. Ankle dorsiflexion WFL. Ankle plantarflexion WFL. Left Lower Extremity: Hip flexion WFL. Hip abduction WFL. Knee flexion WFL. Ankle dorsiflexion WFL. Ankle plantarflexion WFL. Strength: Right Upper Extremity: Shoulder flexors 4/5. Shoulder abductors 4/5. Elbow flexors 4/5. Elbow extensors 4-/5. Building Code Administrator strong. Left Upper Extremity: Shoulder flexors 4/5. Shoulder abductors 4/5. Elbow flexors 4/5. Elbow extensors 4-/5. Building Code Administrator strong. Right Lower Extremity: Hip flexors 4-/5. Hip abductors 4/5. Knee flexors 4/5. Knee extensors 4-/5. Ankle dorsiflexors 3+/5. Ankle plantarflexors 4-/5. Left Lower Extremity: Hip flexors 4/5. Hip abductors 4/5. Knee flexors 4/5. Knee extensors 4/5. Ankle dorsiflexors 3+/5. Ankle plantarflexors 4-/5. Bed Mobility/Transfers: Sit to stand standby assist Stand to sit standby assist Bed to chair standby assist Chair to bed standby assist Gait: Instructed patient with level surface ambulation of up to 40 feet using front wheeled walker with full weightbearing requiring contact-guard assist with report of significant fatigue right after activity with increased trunk anteroflexion and cervical flexion and report of pain in the neck area subsided with rest and with placement of new cervical collar. Balance: Static Sitting: Fair Dynamic Sitting: Fair Static Standing: Fair Dynamic Standing: Fair Mobility Limitations Standardized Measure [facility] AM-PAC 6 clicks Basic Mobility Inpatient Short Form: Raw Score: 18 CMS Score: 47% impairment Informed Consent/Education: Patient was instructed in purpose of PT consult and plan of care. Agreeable to proceed with established PT POC to achieve personal goals. Assessment: Tanja is an 86-year-old female with myasthenia gravis status post plasmapheresis on 10/15/2021 and atrial fibrillation who returned to the ED after being discharged to home on 10/15/2021 due to increasing generalized weakness, inability to use walker, and persistent loose stools. Patient is diagnosed with follow-up positive stool, diarrhea, ambulatory dysfunction, and decubitus of sacral area. Patient is at high risk for further loss of mobility, given her advanced age and extensive medical history, along with baseline mobility deficits. She currently demonstrates the following impairment level findings: 1. Dowagers hump with increasing cervical neck flexion and rotation 2. Decreased LE strength 3. Decreased activity tolerance 4. Impaired dynamic standing balance due to posture deficit Impairments are contributing to the following functional limitations: 1. Decline in bed mobility skills 2. Decline in transfer skills 3. Difficulty with ambulation without assistive device and physical assistance 4. Increased completion time for mobility ADL performance 5. Increased risk for falls 6. Difficulty with managing steps alone safely Patient is assessed as a 36927 moderate complexity based on the following: History: 86-year-old female with past medical history as indicated above Examination: Demonstrable impairment in strength, balance, and mobility level with underlying impairments and functional limitations as exhibited above as well as deficit score of 47% utilizing the [facility] Mobility Inpatient Short Form Presentation: Evolving Decision Makin moderate complexity Goals: Goals X1 week 1. Supine-Sit independent 2. Sit-Supine independent 3. Sit-Stand independent 4. Stand-Sit independent 5. Bed-Chair independent 6. Chair-Bed independent 7. Independent gait on level surface with use of 4WW for at least 50 feet without report of pain nor dyspnea 8. Independent stair negotiation while holding onto unilateral rail for at least 3 steps without report of pain nor dyspnea 9. Good static and dynamic standing balance/tolerance Plan of Care/Treatment Plan: 1-2x/day, 7 days/week x 1 week. Plan of care has been reviewed with the PRICE CLERK providing the service under Physical Therapy direction. Initiate Physical Therapy intervention for strengthening, bed mobility, transfers, gait, stairs, balance training, use of assistive device. DISCHARGE RECOMMENDATIONS: [] Home with no services [] [] Home with services [specify] [] Home with outpatient PT [] [X] SNF for continued rehabilitation. Patient will benefit from a short-term rehab stay in order to regain premorbid independent mobility level of covering household distances of up to 50 feet using 4 wheeled walker [] [facility] [] [] SNF versus LTC based on ability to participate and progress [] TREATMENT CODE/TIME: 78551 x 15 minutes, 31614 x 10 minutes beginning at 9:55 AM. Thank you for the opportunity to participate in the care of this patient. Anamika Miner PT, DPT, CLT [facility] [place], [place]
[2021-10-18] MEDS: Cholestyramine/Aspartame PKT 1 EACH PO ×2 (10:02→19:20)
[2021-10-18 15:36] VITALS: BP 142/76; PULSE 68; RESP 12; TEMP 36.6; O2SAT 98
--- NOTE | 2021-10-18 16:17 | CHAPLAIN ---
Tanja and I know each other from previous admissions. She was discharged recently to [facility] then went home for a short time before returning to the ED with diarrhea and lack of mobility. She says she was admitted yesterday, and she feels better and is not having diarrhea any more which has helped a great deal, although she does have a sore on her bottom, she said. Tanja lives with her son and [id number] in [place], and said she may need to go to rehab for more PT to gain strength to get around better. Today she walked with PT, using a walker, farther than she has walked in a while, and she was happy about that. She has two more sons, one outside [place], and one in [place], [place] and a daughter in [facility]. Tanja has been a [employer] for many years and attends a Zoom Anglican meeting on Thursdays from the [place], and said she very much likes attending at 8:30 a.m. Thursday. 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 She has a doctorate in childhood development. 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 She said she misses him a great deal. They were for 55 years, and he was a great partner.
[2021-10-18] MEDS: Albuterol HFA 8 GM 60 PUFF INH IH (19:23)
[2021-10-18 23:50] VITALS: BP 127/55; PULSE 73; RESP 12; TEMP 35.4; O2SAT 96
[2021-10-19 08:04] VITALS: BP 121/78; PULSE 71; RESP 16; TEMP 35.8; O2SAT 97
[2021-10-19] MEDS: predniSONE 20 MG TAB PO (08:57)
[2021-10-19] MEDS: Methadone 5 MG TAB PO ×2 (08:57→19:58)
[2021-10-19] MEDS: Ferrous Sulfate 325 MG TAB PO (08:59)
[2021-10-19] MEDS: Multivitamin TAB 1 TAB PO (08:59)
[2021-10-19] MEDS: Gabapentin 300 MG CAP 600 MG PO ×2 (08:59→19:58)
[2021-10-19] MEDS: Folic Acid 1 MG TAB PO (08:59)
[2021-10-19] MEDS: Albuterol HFA 8 GM 60 PUFF INH IH ×2 (09:11→12:17)
[2021-10-19] MEDS: Cholestyramine/Aspartame PKT 1 EACH PO ×2 (09:11→19:57)
[2021-10-19] MEDS: Pantoprazole 40 MG TABCR PO ×2 (11:00→19:58)
[2021-10-19] MEDS: Sucralfate 1 GM TAB PO ×3 (11:01→21:15)
[2021-10-19 11:17] LABS: Abs Immature Grans 0.09 10^3/uL (0.0-0.06); Absolute Basophil Count 0.01 10^3/uL (0.0-0.2); Absolute Lymphocyte Count 0.98 10^3/uL (1.2-3.4); Absolute Monocyte Count 0.68 10^3/uL (0.1-0.8); Basophils % 0.1; Eosinophils % 0.1; HCT 34.8 % (36.0-46.0); HGB 10.6 g/dL (11.2-15.7); Immature Grans % 0.6; MCH 30.6 pg (27.0-33.0); MCHC 30.5 % (32.0-36.0); MCV 100.6 fL (80-95); MPV 10.2 fL (8.0-11.0); Monocytes % 4.9; Neutrophils % 87.3; Nucleated RBC 0 %; Platelet Count 149 10^3/uL (130-400); RBC 3.46 10^6/uL (3.93-5.22); RDW 18.5 % (11.7-14.6); RDW-SD 67.7 fL; WBC 13.95 10^3/uL (4.4-10.8)
[2021-10-19 11:18] LABS: Absolute Eosinophil Count 0.01 10^3/uL (0.0-0.7); Absolute Neutrophil Count 12.18 10^3/uL (1.2-6.7)
[2021-10-19 11:25] LABS: Anion Gap 10.3 mmol/L (3-11); BUN 21 mg/dL (7-18); CO2 22.7 mmol/L (21.0-32.0); CREATININE 1.2 mg/dL (0.55-1.02); Calcium 8.7 mg/dL (8.5-10.1); Chloride 110 mmol/L (98-107); Glucose 81 mg/dL (74-106); Potassium 3.9 mmol/L (3.5-5.1); Sodium 143 mmol/L (136-145)
--- NOTE | 2021-10-19 11:54 | PT.INTREAT ---
Date of service: 10/19/21 Time of Service: 09:45 PT Notes Visit Reasons: Suspected C.Diff,SIRS,Ambulatory dysfunction Inpatient Physical Therapy Treatment Note [facility] Date: 10/19/2021 PRECAUTIONS: Activity as Tolerated SUBJECTIVE: Tanja states that she is not feeling well today. She states I need to be able to get up, walk to my bathroom, sit down, get back up, and walk back in order to go home. She reports that she feels very weak. OBJECTIVE: PAIN: Patient c/o pain in left middle digit, which was relieved by temporary splint created with paper tape. BED MOBILITY/TRANSFERS Sit-stand: SBA Stand-sit: SBA GAIT Assistive Device: FWW Weight bearing: Full Assist: SBA Distance: 20' Deviation: C/o fatigue, donned soft collar THEREX: Patient was instructed in a seated resisted UE and LE strengthening program, as per flow sheet. She requires rests between each exercise due to minimal SOB and global fatigue. She utilizes orange Theraband and 1# dumbbells. ASSESSMENT: Patient continues to demonstrate limited activity tolerance, and global weakness due to recent immobility due to illness. PLAN: Continue with global strengthening and general conditioning for continued progression toward baseline level of function. TREATMENT CODE/TIME: 24 minutes; 46079, 53041 (09:45)
--- NOTE | 2021-10-19 11:55 | SCONE_ITS ---
Date of service: 10/19/21 Time of Service: 11:55 Assessment and Plan Assessment and plan (1) Diarrhea: Status: Acute Assessment and plan: C.diff ruled out. COVID-19 ruled out. Has resolved since admission (2) Guaiac positive stools: Status: Acute Assessment and plan: Hgb/Hct is stable at this time She is back on Carafate and protonix Discussed EGD with her. She would be amenable to EGD if she acutely deteriorates. Colonoscopy only if the EGD doesn't show a source of her bleeding (3) Myasthenia gravis: Status: Chronic (4) Atrial fibrillation: Status: Chronic Assessment and plan: Paroxysmal, currently in SR. She is not currently on medications for rate control. Qualifiers: Atrial fibrillation type: paroxysmal Qualified Code(s): I48.0 - Paroxysmal atrial fibrillation History of Present Illness History of Present Illness Chief Complaint: Anemia Narrative: Ms Carpio is an 86 year old female with PMHx of myasthenia gravis (plasmopharesis and steroid-dependent via AV fistula), as well as h/o dysphagia secondary to MG, recent admission for an aspiration vs community acquired pneumonia, Afib, previously on anticoagulation, which was discontinued during her last admission due to anemia (heme negative then, per D/c summary, but requiring transfusion of 2 units of pRBCs), who was just discharged from [facility] on 10/16/21 on augmentin after her admission for PNA, but returned to [facility] ED on 12/17 c/o at least 10 bouts of black diarrhea and generalized weakness with inability to walk even with her usual walker. The patient states that she had diarrhea for the last two and a half days of her admission with us, but that it got a lot worse today. She denies fevers, abdominal pain, n/v, but states that her bottom has been feeling raw from so much diarrhea. She has not seen shubham blood. She states she felt dizzy trying to get up from the toilet. She did receive her usual plasmapharesis treatment at [facility] yesterday after her discharge. The patient was heme + in the ED with Hgb of 11.7 (it was 11.2 on 10/14/21). She tested negative for C.Diff and for COVID-19. Patient was admitted by the Hospitalist The patient states that her family cannot take care of her at home since she cannot get the bathroom (her daughter in law told her so) and that her family is not available to care for her for the remainder of the week because it is Thanksgiving. She would like to be placed to a subacute rehab facility, preferably locally. I spoke with her about the fact that her plasmapharesis treatments may be a barrier to that, so she will discuss her options with care management We were consulted regarding her Melena. Her Hgb is stable and has improved to 10.6 from 9.7 on 10/17. She is still having small black stools that are heme positive. She has no abdominal pain and has had no further diarrhea since her admission. She does seem very week. She was discharged on carafate and Omeprazole on her last admission but it doesn't look like the Rx was filled. Consults Consult date: 10/19/21 Requesting physician: Ana Page Review of Systems Constitutional Constitutional: Denies fever(s), Denies headache(s), Reports poor appetite, Reports weakness and Denies weight loss Eyes Eyes: Denies change in vision ENT Ears, Nose, Mouth, and Throat: Reports dysphagia (secondary to MS), Denies headache(s) and Denies hoarseness Cardiovascular Cardiovascular: Denies chest pain, Reports irregular heart rhythm, Denies palpitations, Denies dyspnea and Reports dyspnea on exertion Respiratory Respiratory: Denies cough, Denies dyspnea and Reports dyspnea on exertion Gastrointestinal Gastrointestinal: Reports as per HPI, Reports dysphagia (secondary to MS), Denies dyspepsia and Denies heartburn Genitourinary Genitourinary: Reports system reviewed and no additional complaints, except as documented Musculoskeletal Musculoskeletal: Reports other (pain of index finger of right hand) Integumentary/Breasts Skin/Breast: Reports system reviewed and no additional complaints, except as documented Neurologic Neurologic: Reports system reviewed and no additional complaints, except as documented, Denies headache(s) and Reports weakness Psychiatric Psychiatric: Reports system reviewed and no additional complaints, except as documented Endocrine Endocrine: Reports system reviewed and no additional complaints, except as documented and Denies palpitations Hematologic/Lymphatic Hematologic/Lymphatic: Reports easy bleeding, Reports easy bruising and Denies lymphadenopathy [facility] Active Problem List Palliative care patient (Acute) UTI (urinary tract infection) (Acute) Dependent edema (Acute) GI bleed (Chronic) Descending aortic aneurysm (Chronic) Pneumonia (Acute) COPD (chronic obstructive pulmonary disease) (Chronic) Weakness (Acute) Exertional dyspnea (Acute) Ileus, unspecified (Acute) Elevated troponin (Acute) Weakness (Acute) Thrush, oral (Acute) Discharge planning issues (Acute) Atrial fibrillation (Chronic) Myasthenia gravis (Chronic) Multifocal pneumonia (Acute) Pseudomonas pneumonia (Acute) Aspiration pneumonitis (Acute) Eating disorder (Acute) Debility (Acute) Sepsis (Acute) DVT prophylaxis (Acute) Hypokalemia (Acute) Medical History Aspiration pneumonia B12 deficiency Cardiomyopathy Echo 12/10/2018: EF 60-65%, up from 35% previously; does have diastolic dysfunction Chronic constipation Chronic insomnia Chronic pain on methadone therapy Compression fracture of spine Depression Dysphagia 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 Gastrostomy Tube Placement H/O wisdom tooth extraction S/P appendectomy Family History Father Heart disease Mother Cancer pancreatic Social History Smoking/Tobacco Use Status: Never Smoking risk assessment performed?: Yes Alcohol Intake: current Alcohol Intake frequency: a few times a week Alcohol type: hard liquor Drug use: Never Substance use type: does not use Do you feel safe at home: Yes Do you feel safe in your relationship?: Yes Additional Social history: live with son and his family Exam Const General: cooperative, comfortable, no acute distress and frail appearing Nutritional Appearance: underweight Orientation: alert and oriented x3 HENMT Head: normocephalic and atraumatic Eyes Pupils: PERRL Resp Effort & Inspection: normal respiratory effort Auscultation: clear to auscultation bilaterally Cardio Rate: regular rate Rhythm: regular rhythm Heart Sounds: no gallops, no murmurs and no rubs GI Inspection: normal to inspection Palpation: soft, no hepatosplenomegaly and nontender Auscultation: normal bowel sounds Results Last Vital Signs Temp 96.4 F L 10/19/21 08:04 Pulse 71 10/19/21 08:04 Resp 16 10/19/21 08:04 BP 121/78 10/19/21 08:04 Pulse Ox 97 10/19/21 08:04 Labs Result diagrams: 10/19/21 10:49 10/19/21 10:49 Labs: Laboratory Results - last 24 hr 10/19/21 10/19/21 10/19/21 10:49 10:49 10:49 WBC 13.95 H RBC 3.46 L Hgb 10.6 L Hct 34.8 L MCV 100.6 H MCH 30.6 MCHC 30.5 L RDW 18.5 H Plt Count 149 MPV 10.2 Immature Gran % 0.6 Neutrophils % 87.3 Lymphocytes % 7.0 Monocytes % 4.9 Eosinophils % 0.1 Basophils % 0.1 Nucleated RBC % 0 Absolute Neutrophils 12.18 H Absolute Lymphocytes 0.98 L Absolute Monocytes 0.68 Absolute Eosinophils 0.01 Absolute Basophils 0.01 Sodium 143 Potassium 3.9 Chloride 110 H Carbon Dioxide 22.7 Anion Gap 10.3 BUN 21 H Creatinine 1.2 H Estimated GFR/1.73 m2 42.80 Glucose 81 Calcium 8.7 Patient ABO/Rh O Negative Antibody Screen NEGATIVE
--- NOTE | 2021-10-19 12:49 | WOUNDCONS_ITS ---
- If Service Date Differs Date of service: 10/19/21 Time of Service: 12:49 Wound Initial Evaluation Narrative: told Patient is an 86yof who had recently discharged from here. She returns D/t multiple bouts of black diarrhea, and weakness to the point she cannot use her usual walker. Patient has had continuous churn buttermaker wound on the sacral area. She signs consent for consult and treatment. H&P. Labs and allergies were reviewed prior to the consult. Patient told this nurse that the area does not cause her much pain. She said she was happy to have an opportunity to have wound improve. - Wound Lumbar/Sacral Wound Type: Pressure Ulcer Pressure Ulcer Stage: IV Wound General Appearance: Reddened, Unapproximated Wound Bed Greatest Portion: Pale [place] Wound Bed Lesser Portion: Blanched/Dull Wound Surrounding Tissue Appearance: [place], Edges Rolled Percent of Wound Bed Granulated/Red: 0 Wound Length: 3.9 cm Wound Width: 4.1 cm Wound Depth: 0.6 cm Wound Drainage Amount: None Wound Drainage Odor: None/Absent Wound Drainage Description: No drainage Wound Topical Solution/Irrigant: Saline Irrigant Wound Debridement Method: Mechanical Wound Debridement Result: Other (no change) Left Lumbar/Sacral Wound Type: Pressure Ulcer Pressure Ulcer Stage: I Wound General Appearance: Well Approximated Wound Bed Greatest Portion: Red (Granulation) Percent of Wound Bed Granulated/Red: 100 Wound Length: 1.4 cm Wound Width: 4.3 cm Wound Depth: 0.1 cm Wound Drainage Amount: None Wound Drainage Odor: None/Absent Wound Drainage Description: No drainage Wound Topical Solution/Irrigant: Saline Irrigant Wound Debridement Method: Mechanical Wound Debridement Result: Healthy Tissue Revealed Wound Debridement Amount of Tissue Removed: None Mid Posterior Wound Type: Other (IAD) Wound General Appearance: Reddened Wound Bed Greatest Portion: Red (Granulation) Wound Bed Lesser Portion: Pale [place] Wound Surrounding Tissue Appearance: Dark Red Percent of Wound Bed Granulated/Red: 95 Wound Drainage Amount: Minimal Wound Drainage Odor: None/Absent Wound Drainage Description: Serous Wound Topical Solution/Irrigant: Saline Irrigant Wound Debridement Method: Mechanical Wound Debridement Result: Healthy Tissue Revealed Wound Debridement Amount of Tissue Removed: None - Circulation, Sensation, Motion Peripheral Pulse Strength: Normal Capillary Refill: Less than 3 seconds Sensation Description: Within Normal Limits Skin Temperature: Warm Skin Color: Pale - Treatment/Dressing Change Topicals/Ointments: Other (Triad) Dressing Types: Collagen (Promagran Prism, Hydrocollid (Duoderm) - Recomendation Recomendation:: Stage 4 sacral coccyx. Cleanse with NS pat dry. Apply Skin prep to the saji wound skin. Apply Triad to the wound bed. Cover with Duoderm thin Change every 3 days or PRN. Stage1 left upper sacrum. Cleanse with NS pat dry. Apply skin prep to the saji wound skin. Cover with a Duoderm thin Change Every 3 days or PRN. IAD Saji anal Cleanse with barrier wipes after each episode of incontinence. Apply the Elena cream 3 times daily Offload pressure for patient every 2 hours. Physcian/Nurse Practioner Notified: Yes (Ana Page NP) Treatment Time - Time Total Time Spent with Patient: 35 - Patient Will be Seen Weekly Treatment: 3x/wk
--- NOTE | 2021-10-19 15:44 | PGE_ITS ---
Date of Service Date of service: 10/19/21 Time of Service: 15:44 Assessment and Plan Assessment and plan (1) Diarrhea: Status: Acute Assessment and plan: Probable side effect from her recent Augmentin. I could not find any studies for C. difficile therefore I have reordered this. Continue with Questran, add probiotics. (2) Guaiac positive stools: Status: Acute Assessment and plan: Hemoccult positive stools. Patient's hemogram is been trending downward. Patient was put on Pepcid suspension on admission I have changes to Protonix and added Carafate. Consult with Dr. Quispe to evaluate for possible EGD and/or colonoscopy.Per Dr. Quispe's notes she discussed EGD with the patient who indicated she would be agreeable to it if she has acute decompensation. Colonoscopy would only be pursued if her EGD shows no source of bleeding. At present time no plans have been made for endoscopy during this acute hospitalization. (3) Myasthenia gravis: Status: Chronic Assessment and plan: Patient is chronically on prednisone 20 mg daily. Previous hospitalist noted a trial of stress dose steroids but she was only given a one-time dose of prednisone 40 mg before being resumed on 20 mg daily. I am not convinced that she needs stress dose prednisone at this time. Particularly in light of her GI bleeding. 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 (4) Atrial fibrillation: Status: Chronic Assessment and plan: Paroxysmal, currently in SR. No longer on anticoagulation due to anemia, which we now know is heme +. Would hold off on resumption of anticoagulation given above. She is not currently on medications for rate control. Qualifiers: Atrial fibrillation type: paroxysmal Qualified Code(s): I48.0 - Paroxysmal atrial fibrillation (5) Ambulatory dysfunction: Status: Acute Assessment and plan: Consult PT/OT. Monitor for iprovement. May require placement to subacute rehab facility. (6) Decubitus ulcer of sacral area: Status: Acute Assessment and plan: Wound care consult. (7) DVT prophylaxis: Status: Acute Assessment and plan: SCDs. Hold chemical DVT ppx in setting of Heme + stools. (8) Discharge planning issues: Status: Acute Assessment and plan: Full code Will need subacute rehab placement on discharge. Care management to consider location of this as the patient is to get plasmapharesis at [facility] on weekly basis. Subjective Subjective Interval history since last seen: 86-year-old female with a history of myasthenia gravis who receives plasmapheresis weekly through [facility] chronically maintained on prednisone. She has a history of atrial fibrillation formally been on Eliquis but was taken off of this during her recent hospitalization when she was found to be anemic and having Hemoccult positive stools. During that hospitalization from 10/10/2021 through 10/14/2021 she was found to be anemic with a hemoglobin 8.1 dropping down to as low as 7.0 before being transfused and returning to a hemoglobin of 11.2 g prior to discharge. She was rehospitalized this admission because of diarrhea. She been treated for pneumonia during her last hospitalization was discharged home on Augmentin. She is now found to have worsening anemia. Hemoglobin on this admission was 11.7 but dropped to 9.7 two days ago. But now is 10.6 g today. She was evaluated for SARS-CoV-2 and was negative on admission. Stool studies were ordered but she was not having any further diarrhea after admission although this afternoon she had another loose bowel movement. C. difficile PCR is pending as well as stools for bacterial pathogens. She has been started on Questran and I have added Metamucil to her regimen. Exam Narrative Exam Narrative: Frail elderly female lying on her side and no acute distress she is alert and oriented person place time circumstance Lungs are clear to auscultation Heart regular Abdomen soft nontender nondistended normal active bowel sounds Extremities without peripheral edema Objective Last Vital Signs Temp 35.8 C L 10/19/21 08:04 Pulse 71 10/19/21 08:04 Resp 16 10/19/21 08:04 BP 121/78 10/19/21 08:04 Pulse Ox 97 10/19/21 08:04 Laboratory Results - last 24 hr 10/19/21 10/19/21 10/19/21 10:49 10:49 10:49 WBC 13.95 H RBC 3.46 L Hgb 10.6 L Hct 34.8 L MCV 100.6 H MCH 30.6 MCHC 30.5 L RDW 18.5 H Plt Count 149 MPV 10.2 Immature Gran % 0.6 Neutrophils % 87.3 Lymphocytes % 7.0 Monocytes % 4.9 Eosinophils % 0.1 Basophils % 0.1 Nucleated RBC % 0 Absolute Neutrophils 12.18 H Absolute Lymphocytes 0.98 L Absolute Monocytes 0.68 Absolute Eosinophils 0.01 Absolute Basophils 0.01 Sodium 143 Potassium 3.9 Chloride 110 H Carbon Dioxide 22.7 Anion Gap 10.3 BUN 21 H Creatinine 1.2 H Estimated GFR/1.73 m2 42.80 Glucose 81 Calcium 8.7 Patient ABO/Rh O Negative Antibody Screen NEGATIVE
[2021-10-19 16:28] VITALS: BP 102/63; PULSE 79; RESP 15; TEMP 35.9; O2SAT 96
[2021-10-19] MEDS: Psyllium PKT 1 EACH PO (19:58)
[2021-10-19] MEDS: Lactobacillus Acidophilus CAP 1 CAP PO (19:58)
[2021-10-19] MEDS: Melatonin 3 MG TAB 9 MG PO (21:15)
[2021-10-19 22:34] VITALS: BP 111/65; PULSE 87; RESP 16; TEMP 36.7; O2SAT 94
[2021-10-20 06:54] LABS: Abs Immature Grans 0.08 10^3/uL (0.0-0.06); Absolute Basophil Count 0.01 10^3/uL (0.0-0.2); Absolute Eosinophil Count 0.04 10^3/uL (0.0-0.7); Absolute Lymphocyte Count 0.71 10^3/uL (1.2-3.4); Absolute Monocyte Count 0.55 10^3/uL (0.1-0.8); Absolute Neutrophil Count 8.77 10^3/uL (1.2-6.7); Basophils % 0.1; Eosinophils % 0.4; HCT 29.5 % (36.0-46.0); HGB 9.2 g/dL (11.2-15.7); Immature Grans % 0.8; MCH 30.8 pg (27.0-33.0); MCHC 31.2 % (32.0-36.0); MCV 98.7 fL (80-95); MPV 9.9 fL (8.0-11.0); Monocytes % 5.4; Neutrophils % 86.3; Nucleated RBC 0 %; Platelet Count 116 10^3/uL (130-400); RBC 2.99 10^6/uL (3.93-5.22); RDW 18.3 % (11.7-14.6); RDW-SD 66.4 fL; WBC 10.16 10^3/uL (4.4-10.8)
[2021-10-20 07:23] LABS: ALT 12 U/L (14-59); AST 16 U/L (15-37); Alkaline Phosphatase 38 U/L (46-116); Bilirubin, Direct 0.1 mg/dL (0.0-0.2); Bilirubin, Total 0.5 mg/dL (0.2-1.0); Total Protein 4.4 g/dL (6.4-8.2)
[2021-10-20 07:24] LABS: Anion Gap 8.8 mmol/L (3-11); BUN 17 mg/dL (7-18); C-Reactive Protein 3.41 mg/dL (0.0-0.3); CO2 23.2 mmol/L (21.0-32.0); Calcium 8.2 mg/dL (8.5-10.1); Chloride 111 mmol/L (98-107); Estimated GFR 52.82 (mL/min/1.73m2); Glucose 71 mg/dL (74-106); Potassium 3.7 mmol/L (3.5-5.1); Sodium 143 mmol/L (136-145)
[2021-10-20 07:36] VITALS: BP 112/57; PULSE 78; RESP 16; TEMP 35.9; O2SAT 96
[2021-10-20 07:48] LABS: Procalcitonin < 0.1 ng/mL
[2021-10-20] MEDS: Lactobacillus Acidophilus CAP 1 CAP PO ×3 (08:01→21:12)
[2021-10-20] MEDS: Sucralfate 1 GM TAB PO ×4 (08:01→21:11)
[2021-10-20] MEDS: predniSONE 20 MG TAB PO (08:02)
[2021-10-20] MEDS: Ferrous Sulfate 325 MG TAB PO (08:02)
[2021-10-20] MEDS: Multivitamin TAB 1 TAB PO (08:02)
[2021-10-20] MEDS: Methadone 5 MG TAB PO ×2 (08:02→21:12)
[2021-10-20] MEDS: Pantoprazole 40 MG TABCR PO ×2 (08:02→21:11)
[2021-10-20] MEDS: Psyllium PKT 1 EACH PO ×2 (08:03→21:11)
[2021-10-20] MEDS: Albuterol HFA 8 GM 60 PUFF INH IH ×2 (08:03→16:51)
[2021-10-20] MEDS: Gabapentin 300 MG CAP 600 MG PO ×2 (08:20→21:12)
[2021-10-20] MEDS: Lidocaine 5% Patch 1 PATCH TP (08:20)
[2021-10-20] MEDS: Folic Acid 1 MG TAB PO (08:20)
[2021-10-20] MEDS: Cholestyramine/Aspartame PKT 1 EACH PO ×2 (08:20→18:46)
--- NOTE | 2021-10-20 09:48 | PT.INTREAT ---
Date of service: 10/20/21 Time of Service: 08:51 PT Notes Visit Reasons: Suspected C.Diff,SIRS,Ambulatory dysfunction Inpatient Physical Therapy Treatment Note [facility] Date: 10/20/2021 PRECAUTIONS: Activity as Tolerated SUBJECTIVE: Tanja states that she is not feeling well today. She reports that she has had a bad morning, that she did not sleep well overnight, and that she had blood in her stool this morning which has caused her to feel very worried. She states I don't want to be a quitter multiple times throughout session. OBJECTIVE: PAIN: Patient states I have pain during gait training, but does not specify where or give rating. BED MOBILITY/TRANSFERS Sit-supine: I Sit-stand: SBA Stand-sit: SBA GAIT Assistive Device: FWW Weight bearing: Full Assist: SBA Distance: 25' + 15' Deviation: C/o fatigue, seated rest x1, refused soft collar THEREX: Refused ASSESSMENT: Patient continues to demonstrate limited activity tolerance, and global weakness due to recent immobility due to illness. PLAN: Continue with global strengthening and general conditioning for continued progression toward baseline level of function. TREATMENT CODE/TIME: 24 minutes; 32751 x2 (08:51)
--- NOTE | 2021-10-20 11:13 | W.PM.PROGNOT ---
Date of Service Date of service: 10/20/21 Time of Service: 11:13 Assessment and Plan Assessment and plan (1) Diarrhea: Status: Acute Assessment and plan: C.diff ruled out. COVID-19 ruled out. Has resolved since admission (2) Guaiac positive stools: Status: Acute Assessment and plan: Hgb/Hct has droped this am She is back on Carafate and protonix Discussed EGD with her. She would be amenable to EGD if she acutely deteriorates. Case discussed with anesthesia. She is high risk but Anesthesia feels that she could be taken care of here. EGD discussed with patient again. She is amenable to have this done Will plan on EGD tomorrow NPO after midnight (3) Myasthenia gravis: Status: Chronic (4) Atrial fibrillation: Status: Chronic Assessment and plan: Paroxysmal, currently in SR. She is not currently on medications for rate control. Qualifiers: Atrial fibrillation type: paroxysmal Qualified Code(s): I48.0 - Paroxysmal atrial fibrillation Subjective Subjective Interval history since last seen: Mrs Carpio is doing OK today. She is still feeling very weak and had trouble walking today. She seems a bit discouraged. Her labs show a drop in her HGB today Patient describes red tinged urine. Exam Const General: cooperative and comfortable Orientation: alert and oriented x3 HENMT Head: normocephalic and atraumatic Resp Effort & Inspection: normal respiratory effort Auscultation: clear to auscultation bilaterally Cardio Rate: regular rate Rhythm: regular rhythm GI Inspection: normal to inspection Palpation: soft, no hepatosplenomegaly and tender (mild epigastric) Auscultation: normal bowel sounds Objective Last Vital Signs Temp 96.6 F L 10/20/21 07:36 Pulse 78 10/20/21 07:36 Resp 16 10/20/21 07:36 BP 112/57 L 10/20/21 07:36 Pulse Ox 96 10/20/21 07:36 Laboratory Results - last 24 hr 10/17/21 10/17/21 10/19/21 19:20 19:20 10:49 WBC RBC Hgb Hct MCV MCH MCHC RDW Plt Count MPV Immature Gran % Neutrophils % Lymphocytes % Monocytes % Eosinophils % Basophils % Nucleated RBC % Absolute Neutrophils Absolute Lymphocytes Absolute Monocytes Absolute Eosinophils Absolute Basophils Sodium 143 Potassium 3.9 Chloride 110 H Carbon Dioxide 22.7 Anion Gap 10.3 BUN 21 H Creatinine 1.2 H Estimated GFR/1.73 m2 42.80 Glucose 81 Calcium 8.7 Total Bilirubin Conjugated Bilirubin AST ALT Alkaline Phosphatase C-Reactive Protein Total Protein Albumin Procalcitonin Stool Description Cancelled Stool Campylobacter PCR Cancelled Stl C.difficile Tox PCR Stool Salmonella PCR Cancelled Stool Shigella PCR Cancelled Stool Ova & Parasites Cancelled Shiga Toxin (PCR) Cancelled Patient ABO/Rh Antibody Screen 10/19/21 10/19/21 10/19/21 10:49 10:49 16:16 WBC 13.95 H RBC 3.46 L Hgb 10.6 L Hct 34.8 L MCV 100.6 H MCH 30.6 MCHC 30.5 L RDW 18.5 H Plt Count 149 MPV 10.2 Immature Gran % 0.6 Neutrophils % 87.3 Lymphocytes % 7.0 Monocytes % 4.9 Eosinophils % 0.1 Basophils % 0.1 Nucleated RBC % 0 Absolute Neutrophils 12.18 H Absolute Lymphocytes 0.98 L Absolute Monocytes 0.68 Absolute Eosinophils 0.01 Absolute Basophils 0.01 Sodium Potassium Chloride Carbon Dioxide Anion Gap BUN Creatinine Estimated GFR/1.73 m2 Glucose Calcium Total Bilirubin Conjugated Bilirubin AST ALT Alkaline Phosphatase C-Reactive Protein Total Protein Albumin Procalcitonin Stool Description Stool Campylobacter PCR Stl C.difficile Tox PCR Cancelled Stool Salmonella PCR Stool Shigella PCR Stool Ova & Parasites Shiga Toxin (PCR) Patient ABO/Rh O Negative Antibody Screen NEGATIVE 10/20/21 10/20/21 10/20/21 06:30 06:30 06:30 WBC 10.16 RBC 2.99 L Hgb 9.2 L Hct 29.5 L MCV 98.7 H MCH 30.8 MCHC 31.2 L RDW 18.3 H Plt Count 116 L MPV 9.9 Immature Gran % 0.8 Neutrophils % 86.3 Lymphocytes % 7.0 Monocytes % 5.4 Eosinophils % 0.4 Basophils % 0.1 Nucleated RBC % 0 Absolute Neutrophils 8.77 H Absolute Lymphocytes 0.71 L Absolute Monocytes 0.55 Absolute Eosinophils 0.04 Absolute Basophils 0.01 Sodium 143 Potassium 3.7 Chloride 111 H Carbon Dioxide 23.2 Anion Gap 8.8 BUN 17 Creatinine 1.0 Estimated GFR/1.73 m2 52.82 Glucose 71 L Calcium 8.2 L Total Bilirubin Conjugated Bilirubin AST ALT Alkaline Phosphatase C-Reactive Protein 3.41 H Total Protein Albumin Procalcitonin < 0.1 Stool Description Stool Campylobacter PCR Stl C.difficile Tox PCR Stool Salmonella PCR Stool Shigella PCR Stool Ova & Parasites Shiga Toxin (PCR) Patient ABO/Rh Antibody Screen 10/20/21 06:30 WBC RBC Hgb Hct MCV MCH MCHC RDW Plt Count MPV Immature Gran % Neutrophils % Lymphocytes % Monocytes % Eosinophils % Basophils % Nucleated RBC % Absolute Neutrophils Absolute Lymphocytes Absolute Monocytes Absolute Eosinophils Absolute Basophils Sodium Potassium Chloride Carbon Dioxide Anion Gap BUN Creatinine Estimated GFR/1.73 m2 Glucose Calcium Total Bilirubin 0.5 Conjugated Bilirubin 0.1 AST 16 ALT 12 L Alkaline Phosphatase 38 L C-Reactive Protein Total Protein 4.4 L Albumin 3.0 L Procalcitonin Stool Description Stool Campylobacter PCR Stl C.difficile Tox PCR Stool Salmonella PCR Stool Shigella PCR Stool Ova & Parasites Shiga Toxin (PCR) Patient ABO/Rh Antibody Screen
--- NOTE | 2021-10-20 12:28 | W.ANESPRE ---
General Info Date of Service Date Performed: 10/21/21 Height: 5 ft 8 in Weight: 48.6 kg Body Mass Index (BMI): 16.2 Meds Allergies and Home Medications Allergies Allergy/AdvReac Type Severity Reaction Status Date / Time FAHAD Inhibitors Allergy Unverified 10/16/21 18:32 Beta-Blockers Allergy Unverified 10/16/21 18:32 (Beta-Adrenergic Bloc Sulfa (Sulfonamide Allergy Hives Verified 10/16/21 18:32 Antibiotics) sulfamethoxazole Allergy Unverified 10/16/21 18:32 [From Bactrim] trimethoprim [From Bactrim] Allergy Unverified 10/16/21 18:32 Home Medication Medication Instructions Recorded gabapentin 600 mg PO BID 07/08/17 cyanocobalamin (vitamin B-12) 1 ea IM .QMONTH 07/27/17 ergocalciferol (vitamin D2) 50,000 units PO .QOWEEK 07/27/17 [Vitamin D2] bisacodyl 1 ea NH PRN PRN 09/26/17 sennosides 8.6 mg tablet 8.6 mg PO BID PRN 08/02/18 methadone [Dolophine] 5 mg PO BID 08/06/18 acetaminophen [Tylenol] 650 mg PO Q4H PRN PRN #30 tab 08/10/18 multivitamin [Multiple Vitamins] 1 tab PO DAILY 08/16/18 hydromorphone [Dilaudid] 2 mg PO Q4H PRN PRN MDD 6 02/04/20 melatonin 10 mg PO HS 02/04/20 ferrous sulfate 325 mg PO DAILY #0 tab 02/12/20 acidophilus-pectin, citrus 1 cap PO AC #0 tab 02/15/20 furosemide [Lasix] 40 mg PO QAM 09/18/20 prednisone 20 mg PO DAILY 09/19/20 albuterol sulfate [ProAir HFA] 2 puff INHALATION QID #6.7 g 09/20/20 amoxicillin-pot clavulanate 1 tab PO BID #6 tab 10/15/21 [Augmentin] folic acid 1 mg PO DAILY 10/16/21 lidocaine 1 patch TOPICAL DAILY PRN 10/16/21 Current Visit Medications: Current Medications Generic Name Dose Route Start Last Admin Trade Name Freq PRN Reason Stop Dose Admin Acetaminophen 0 mg 10/16/21 18:40 Acetaminophen 325 Mg Tab PO Q4H PRN PRN Acidophilus/Pectin 1 cap 10/19/21 20:00 10/20/21 08:01 Lactobacillus Acidophilus Cap PO 1 cap TID MARIA Administration Al Hydrox/Mg Hydrox/Simethicone 30 ml 10/16/21 18:40 Mylanta Suspension 30 Ml Cup PO Q2H PRN PRN Albuterol Sulfate 2 puff 10/16/21 20:00 10/20/21 12:17 Albuterol Hfa 8 Gm 60 Puff Inh IH Not Given QID MARIA Cholestyramine/Aspartame 1 each 10/16/21 19:00 10/20/21 08:20 Cholestyramine/Aspartame Pkt PO 1 each 1000,1900 MARIA Administration Clotrimazole 40 gm/ Zinc Oxide 0 gm 10/19/21 14:00 10/20/21 08:05 40 gm/ Vitamin A/Vitamin D 40 TP 1 applicatio gm TID MARIA Administration Device 1 each 10/16/21 19:00 Inhaler, Assist Device [facility] DIRECTED [facility] Ferrous Sulfate 325 mg 10/17/21 08:30 10/20/21 08:02 Ferrous Sulfate 325 Mg Tab PO 325 mg DAILY MARIA Administration Folic Acid 1 mg 10/17/21 08:30 10/20/21 08:20 Folic Acid 1 Mg Tab PO 1 mg DAILY MARIA Administration Gabapentin 600 mg 10/16/21 20:00 10/20/21 08:20 Gabapentin 300 Mg Cap PO 600 mg BID MARIA Administration Hydromorphone HCl 2 mg 10/16/21 18:46 Hydromorphone 2 Mg Tab PO Q4H PRN PRN Lactobacillus Acidophilus/Casei 1 cap 10/17/21 08:30 10/20/21 08:01 L. Acidophilus, Casei, Rhamnosus Cap PO 1 cap DAILY MARIA Administration Lidocaine 1 patch 10/16/21 18:46 10/20/21 08:20 Lidocaine 5% Patch TP 1 patch DAILY PRN Administration Melatonin 9 mg 10/16/21 22:00 10/19/21 21:15 Melatonin 3 Mg Tab PO 9 mg HS MARIA Administration Methadone HCl 5 mg 10/16/21 20:00 10/20/21 08:02 Methadone 5 Mg Tab PO 5 mg BID MARIA Administration Multivitamins 1 tab 10/17/21 08:30 10/20/21 08:02 Multivitamin Tab PO 1 tab DAILY MARIA Administration Pantoprazole Sodium 40 mg 10/19/21 20:00 10/20/21 08:02 Pantoprazole 40 Mg Tabcr PO 40 mg BID@0730,1999 MARIA Administration Prednisone 20 mg 10/19/21 08:30 10/20/21 08:02 Prednisone 20 Mg Tab PO 20 mg DAILY MARIA Administration Psyllium Hydrophilic Mucilloid 1 each 10/19/21 20:00 10/20/21 08:03 Psyllium Pkt PO 1 each BID MARIA Administration Sucralfate 1 gm 10/19/21 11:30 10/20/21 12:17 Sucralfate 1 Gm Tab PO 1 gm AC & HS MARIA Administration PFSH Active Problems Active Problems: Problem Status Onset Code Decubitus ulcer of sacral area L89.159 Ambulatory dysfunction R26.2 Diarrhea R19.7 Guaiac positive stools R19.5 Palliative care patient Z51.5 UTI (urinary tract infection) N39.0 Dependent edema R60.9 GI bleed K92.2 Descending aortic aneurysm I71.9 Pneumonia J18.9 COPD (chronic obstructive pulmonary disease) J44.9 Weakness R53.1 Exertional dyspnea R06.00 Ileus, unspecified K56.7 Elevated troponin R79.89 CHF (congestive heart failure) Weakness R53.1 Thrush, oral B37.0 Discharge planning issues Z02.9 Hx of deep venous thrombosis Atrial fibrillation Myasthenia gravis G70.00 Multifocal pneumonia J18.9 Septic shock A41.9, R65.21 Pseudomonas pneumonia Aspiration pneumonitis J69.0 Eating disorder F50.9 Debility R53.81 Sepsis A41.9 DVT prophylaxis [id number] Hypokalemia E87.6 Medical History Active Problem List (Updated 10/20/21 @ 12:27 by Gerardo Kinsey, APPRAISAL COORDINATOR) Decubitus ulcer of sacral area (Acute) Ambulatory dysfunction (Acute) Diarrhea (Acute) Guaiac positive stools (Acute) Palliative care patient (Acute) UTI (urinary tract infection) (Acute) Dependent edema (Acute) GI bleed (Chronic) Descending aortic aneurysm (Chronic) Pneumonia (Acute) COPD (chronic obstructive pulmonary disease) (Chronic) Weakness (Acute) Exertional dyspnea (Acute) Ileus, unspecified (Acute) Elevated troponin (Acute) Weakness (Acute) Thrush, oral (Acute) Discharge planning issues (Acute) Atrial fibrillation (Chronic) Myasthenia gravis (Chronic) Multifocal pneumonia (Acute) Pseudomonas pneumonia (Acute) Aspiration pneumonitis (Acute) Eating disorder (Acute) Debility (Acute) Sepsis (Acute) DVT prophylaxis (Acute) Hypokalemia (Acute) Medical History (Updated 10/20/21 @ 12:27 by Gerardo Kinsey CRNA) Aspiration pneumonia B12 deficiency Cardiomyopathy Echo 12/10/2018: EF 60-65%, up from 35% previously; does have diastolic dysfunction Chronic constipation Chronic insomnia Chronic pain on methadone therapy Compression fracture of spine Depression Dysphagia 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 Gastrostomy Tube Placement H/O wisdom tooth extraction S/P appendectomy Tobacco Smoking/Tobacco Use Status: Never Alcohol Alcohol Intake: current Alcohol intake frequency: a few times a week Alcohol type: hard liquor Substance Use Substance use: Never Substance use type: does not use Vital Signs and Lab Results Vital Signs Most Recent Vital Signs in EMR: Most Recent Vital Signs Temp Pulse Resp BP Pulse Ox 35.9 C L 78 16 112/57 L 96 10/20/21 07:36 10/20/21 07:36 10/20/21 07:36 10/20/21 07:36 10/20/21 07:36 Lab Results Result Diagrams: 10/21/21 06:20 10/21/21 06:20 Blood Type / Crossmatch: Patient ABO/Rh O Negative 10/19/21 10:49 10/19/21 Antibody Screen NEGATIVE 10/19/21 10:49 10/19/21 Crossmatch See Detail 10/14/21 10:07 10/14/21 Complete Blood Count: White Blood Count 8.41 10^3/uL (4.4-10.8) 10/21/21 06:20 10/21/21 Red Blood Count 2.93 10^6/uL (3.93-5.22) L 10/21/21 06:20 10/21/21 Hemoglobin 9.0 g/dL (11.2-15.7) L 10/21/21 06:20 10/21/21 Hematocrit 29.0 % (36.0-46.0) L 10/21/21 06:20 10/21/21 Platelet Count 114 10^3/uL (130-400) L 10/21/21 06:20 10/21/21 Complete Metabolic Panel: Sodium Level 142 mmol/L (136-145) 10/21/21 06:20 10/21/21 Potassium Level 4.0 mmol/L (3.5-5.1) 10/21/21 06:20 10/21/21 Chloride Level 109 mmol/L (98-107) H 10/21/21 06:20 10/21/21 Carbon Dioxide Level 26.1 mmol/L (21.0-32.0) 10/21/21 06:20 10/21/21 Blood Urea Nitrogen 15 mg/dL (7-18) 10/21/21 06:20 10/21/21 Creatinine 1.0 mg/dL (0.55-1.02) 10/21/21 06:20 10/21/21 Estimated GFR/1.73 m2 52.82 (mL/min/1.73m2) 10/21/21 06:20 10/21/21 Magnesium Level 2.0 mg/dL (1.8-2.4) 10/17/21 05:25 10/17/21 Calcium Level 8.2 mg/dL (8.5-10.1) L 10/21/21 06:20 10/21/21 Albumin 3.0 g/dL (3.4-5.0) L 10/20/21 06:30 10/20/21 Glucose Level 60 mg/dL (74-106) L 10/21/21 06:20 10/21/21 C-Reactive Protein 3.41 mg/dL (0.0-0.3) H 10/20/21 06:30 10/20/21 Liver Function Panel: Alanine Aminotransferase (ALT/SGPT) 12 U/L (14-59) L 10/20/21 06:30 10/20/21 Aspartate Amino Transf (AST/SGOT) 16 U/L (15-37) 10/20/21 06:30 10/20/21 Coagulation Panel: INR International Normalized Ratio 1.2 (0.9-1.1) H 10/16/21 16:00 10/16/21 Prothrombin Time 12.2 sec (9.3-11.0) H 10/16/21 16:00 10/16/21 Activated Partial Thromboplast Time 28.5 sec (21.0-27.5) H 10/16/21 16:00 10/16/21 Cardiac Panel: Troponin I < 0.05 ng/mL (<0.06) 10/10/21 22:55 10/10/21 GN-Fll-T-Type Natriuretic Peptide 927 pg/mL (<300) H 10/10/21 20:30 10/10/21 Arterial Blood Gas: No Data to Display Venous Blood Gas: No Data to Display Pancreas Panel: No Data to Display Thyroid Panel: Thyroid Stimulating Hormone (TSH) 0.27 uIU/mL (0.36-3.74) L 10/10/21 20:30 10/10/21 Infectious Disease: Coronavirus (COVID-19)(PCR) Negative (Negative) 10/20/21 12:55 10/20/21 Coronavirus 2019 Source Nasal/Nares 10/20/21 12:55 10/20/21 Blood Cultures: No Data to Display Toxicology Panel: No Data to Display Imaging and Studies Imaging and Studies EKG Summary: DATE/TIME OF SERVICE: 10/16/211741 Exam: Resting ECG Reason for Exam: weakness HR:70 bpm ECG Measurements Heart Rate 70 AXIS NH 226 P 83 QRSd 92 QRS -26 QT 410 T-16 QTc 444 Conclusion NSR Prolonged NH interval.. Nonspecific st changes Echocardiogram Summary: Date of Exam: 10/11/21Sex: F Admission Date: 10/10/21 Indications: CHF Other Information Study Quality: Fair. Technically limited study due to body habitus, inability to position patient. Conclusion Normal left ventricular wall thickness and chamber size. Estimated ejection fraction is 55%. There are no segmental wall motion abnormalities Normal right ventricular size and systolic function The right atrium is not well visualized. The left atrium is normal in size Aortic valve is trileaflet with trace to mild regurgitation Structurally normal mitral valve with mild regurgitation The tricuspid valve is not well visualized. There is mild to moderate regurgitation. Estimated right ventricular systolic pressure is 28 mmHg Normal pulmonic valve with trace regurgitation Dilated ascending aorta measuring 3.38 cm Anesthesia Assessment and Plan Anesthesia History Personal History: No History of Anesthesia Complications Family History: No Family History of Anesthesia Complications Exercise Tolerance Exercise Tolerance: Metabolic Equivalents>4 Cardiac & Pulmonary Exam Cardiac Exam: Normal S1/S2 Heart Sounds Pulmonary Exam: Clear Bilateral Breath Sounds Implantable Cardiac Device Does patient have a Pacemaker or an ICD?: No Airway Exam Known Difficult Airway: No Mallampati Class: 3 Mouth Opening: Narrow (< 3cm) Thyromental Distance: Less than 3 cm Neck Range of Motion: Limited ROM Neck Circumference: Normal Teeth Condition: Normal Dentition and Removable Dentures/Plates Lower Airway Comments: multiple missing, denies any loose, bridge not currently in. ASA Classification ASA Score: ASA 3 Emergency Case?: No NPO Status NPO Status: NPO Clears >2 hours, Solids >8 hours Anesthesia Plan Resuscitation Status: Full Code Anesthesia Technique: General Anesthesia Airway Planned: Natural Airway Monitors Used: Standard Monitors Preoperative Comments:: 86 yo female admitted 10/16 with weakness, guaiac positive stool. Did receive stress dose steroids, and 2 units PRBCs, also getting pantoprazole, sucralfate, methadone. Sig PMHx: myasthenia gravis (plasmapheresis last 10/15), steroid dependent, solaris), afib, DVT. EKG: NSR ECHO: LVEF 55%, mild AR/MR. Chest CT: no PE, chronic upper lobe scarring, moderate bronchiectasis. from 10/20 preop Patient with elevated risk. Had pneumonia in early September with antibiotic therapy with improvement of symptoms. She then represented to [facility] for weakness due to GI bleed. New ectatic descending aneurysm for which she will seek outpatient followup when possible (<3cm), blood pressure and HR controlled. History of A-Fib, although SR now. Elaquis is being held. She is on 20mg prednisone daily, and recently went to [facility] for her plasmapheresis for her myasthenia gravis recently.
[2021-10-20 13:02] LABS: Source Nasal/Nares
--- NOTE | 2021-10-20 14:18 | PGE_ITS ---
Date of Service Date of service: 10/20/21 Time of Service: 14:18 Assessment and Plan Assessment and plan (1) Diarrhea: Status: Acute Assessment and plan: Probable side effect from her recent Augmentin. Stool negative for C. difficile. Continue Metamucil and Questran. Some of her diarrhea may be contributed by ongoing GI bleeding. (2) Guaiac positive stools: Status: Acute Assessment and plan: Plan for EGD tomorrow but may need colonoscopy if upper endoscopy is unrevealing. (3) Myasthenia gravis: Status: Chronic Assessment and plan: Patient is chronically on prednisone 20 mg daily. Previous hospitalist noted a trial of stress dose steroids but she was only given a one-time dose of prednisone 40 mg before being resumed on 20 mg daily. I am not convinced that she needs stress dose prednisone at this time. Particularly in light of her GI bleeding. 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 (4) Atrial fibrillation: Status: Chronic Assessment and plan: Paroxysmal, currently in SR. No longer on anticoagulation due to anemia, which we now know is heme +. Would hold off on resumption of anticoagulation given above. She is not currently on medications for rate control. Qualifiers: Atrial fibrillation type: paroxysmal Qualified Code(s): I48.0 - Paroxysmal atrial fibrillation (5) Ambulatory dysfunction: Status: Acute Assessment and plan: Consult PT/OT. Monitor for iprovement. May require placement to subacute rehab facility. (6) Decubitus ulcer of sacral area: Status: Acute Assessment and plan: Wound care consult. (7) DVT prophylaxis: Status: Acute Assessment and plan: SCDs. Hold chemical DVT ppx in setting of Heme + stools. (8) Discharge planning issues: Status: Acute Assessment and plan: Full code Will need subacute rehab placement on discharge. Care management to consider location of this as the patient is to get plasmapharesis at [facility] on weekly basis. Subjective Subjective Interval history since last seen: Tanja is still been having loose stools. Stools are Hemoccult positive. I discussed her case with Dr. Florencia Quispe, general surgeon, regarding performing upper and lower endoscopy. Patient is agreeable to undergoing endoscopy. Plan will be for her to undergo EGD tomorrow looking for source of her GI bleeding. If there is no evidence for upper GI bleeding then a colonoscopy will need to be planned probably as an outpatient procedure.Her blood count is slowly drifting downward. Yesterday her hemoglobin is 10.6 g and now is down to 9.2 g. She is currently on Carafate and Protonix. Exam Narrative Exam Narrative: Elderly white female lying on her side in no acute distress. Said she was having a good morning she had a nice visit with her son. She denies any nausea or vomiting or abdominal pain. Lungs are clear to auscultation Heart is irregularly irregular and controlled rate Abdomen is nondistended soft nontender with normal active bowel sounds Extremities without peripheral cyanosis or edema Objective Last Vital Signs Temp 35.9 C L 10/20/21 07:36 Pulse 78 10/20/21 07:36 Resp 16 10/20/21 07:36 BP 112/57 L 10/20/21 07:36 Pulse Ox 96 10/20/21 07:36 Laboratory Results - last 24 hr 10/17/21 10/17/21 10/19/21 19:20 19:20 16:16 WBC RBC Hgb Hct MCV MCH MCHC RDW Plt Count MPV Immature Gran % Neutrophils % Lymphocytes % Monocytes % Eosinophils % Basophils % Nucleated RBC % Absolute Neutrophils Absolute Lymphocytes Absolute Monocytes Absolute Eosinophils Absolute Basophils Sodium Potassium Chloride Carbon Dioxide Anion Gap BUN Creatinine Estimated GFR/1.73 m2 Glucose Calcium Total Bilirubin Conjugated Bilirubin AST ALT Alkaline Phosphatase C-Reactive Protein Total Protein Albumin Procalcitonin Stool Description Cancelled Stool Campylobacter PCR Cancelled Stl C.difficile Tox PCR Cancelled Stool Salmonella PCR Cancelled Stool Shigella PCR Cancelled Stool Ova & Parasites Cancelled COVID-19 Source Shiga Toxin (PCR) Cancelled 10/20/21 10/20/21 10/20/21 06:30 06:30 06:30 WBC 10.16 RBC 2.99 L Hgb 9.2 L Hct 29.5 L MCV 98.7 H MCH 30.8 MCHC 31.2 L RDW 18.3 H Plt Count 116 L MPV 9.9 Immature Gran % 0.8 Neutrophils % 86.3 Lymphocytes % 7.0 Monocytes % 5.4 Eosinophils % 0.4 Basophils % 0.1 Nucleated RBC % 0 Absolute Neutrophils 8.77 H Absolute Lymphocytes 0.71 L Absolute Monocytes 0.55 Absolute Eosinophils 0.04 Absolute Basophils 0.01 Sodium 143 Potassium 3.7 Chloride 111 H Carbon Dioxide 23.2 Anion Gap 8.8 BUN 17 Creatinine 1.0 Estimated GFR/1.73 m2 52.82 Glucose 71 L Calcium 8.2 L Total Bilirubin Conjugated Bilirubin AST ALT Alkaline Phosphatase C-Reactive Protein 3.41 H Total Protein Albumin Procalcitonin < 0.1 Stool Description Stool Campylobacter PCR Stl C.difficile Tox PCR Stool Salmonella PCR Stool Shigella PCR Stool Ova & Parasites COVID-19 Source Shiga Toxin (PCR) 10/20/21 10/20/21 06:30 12:55 WBC RBC Hgb Hct MCV MCH MCHC RDW Plt Count MPV Immature Gran % Neutrophils % Lymphocytes % Monocytes % Eosinophils % Basophils % Nucleated RBC % Absolute Neutrophils Absolute Lymphocytes Absolute Monocytes Absolute Eosinophils Absolute Basophils Sodium Potassium Chloride Carbon Dioxide Anion Gap BUN Creatinine Estimated GFR/1.73 m2 Glucose Calcium Total Bilirubin 0.5 Conjugated Bilirubin 0.1 AST 16 ALT 12 L Alkaline Phosphatase 38 L C-Reactive Protein Total Protein 4.4 L Albumin 3.0 L Procalcitonin Stool Description Stool Campylobacter PCR Stl C.difficile Tox PCR Stool Salmonella PCR Stool Shigella PCR Stool Ova & Parasites COVID-19 Source Nasal/Nares Shiga Toxin (PCR)
[2021-10-20 15:41] LABS: COVID-19 PCR Negative (Negative)
[2021-10-20 16:08] VITALS: BP 126/75; PULSE 74; RESP 18; TEMP 36.5; O2SAT 95
[2021-10-20] MEDS: Melatonin 3 MG TAB 9 MG PO (21:11)
[2021-10-21] VITALS (8 sets, daily range): BP systolic 112–144; BP diastolic 35–73; PULSE 70–86; RESP 10–23; TEMP 36.2–36.8; O2SAT 93–100; BMI 16.2
[2021-10-21] MEDS: Lactated Ringers 1,000 ML 85 ML IV ×2 (00:56→15:44)
[2021-10-21 06:56] LABS: Abs Immature Grans 0.04 10^3/uL (0.0-0.06); Absolute Basophil Count 0.01 10^3/uL (0.0-0.2); Absolute Eosinophil Count 0.07 10^3/uL (0.0-0.7); Absolute Lymphocyte Count 0.67 10^3/uL (1.2-3.4); Absolute Monocyte Count 0.31 10^3/uL (0.1-0.8); Absolute Neutrophil Count 7.31 10^3/uL (1.2-6.7); Basophils % 0.1; Eosinophils % 0.8; Immature Grans % 0.5; MCH 30.7 pg (27.0-33.0); MPV 10.7 fL (8.0-11.0); Monocytes % 3.7; Neutrophils % 86.9; Nucleated RBC 0 %; Platelet Count 114 10^3/uL (130-400); RBC 2.93 10^6/uL (3.93-5.22); RDW-SD 66.6 fL; WBC 8.41 10^3/uL (4.4-10.8)
[2021-10-21 07:07] LABS: Anion Gap 6.9 mmol/L (3-11); BUN 15 mg/dL (7-18); CO2 26.1 mmol/L (21.0-32.0); Calcium 8.2 mg/dL (8.5-10.1); Chloride 109 mmol/L (98-107); Estimated GFR 52.82 (mL/min/1.73m2); Glucose 60 mg/dL (74-106); Sodium 142 mmol/L (136-145)
--- NOTE | 2021-10-21 09:44 | OT.INNT ---
Date of service: 10/21/21 Time of Service: 09:44 Occupational Therapy Notes 10/21/21 OT consult received and pts chart was reviewed. Pt was not in her room when OT attempted consult. OT will resume process of evaluation tomorrow. Angela Warner OTR/[facility]
--- NOTE | 2021-10-21 10:33 | PDOC.CMPRO ---
- If Service Date Differs Date of service: 10/21/21 Time of Service: 10:33 Care Management Progress Note S/O: Tanja was lying in bed eating a cracker when CM met with her. She is hoping to go to a SNF for short term rehab once she is medically cleared by the provider. The frequency of her plasma infusions at [facility] changed from every 2 weeks to weekly and she is planning on using [facility] for transportation. She had an infusion scheduled for tomorrow however it needed to be canceled since she is not expected to discharged in time. Her SNF referral to [facility] is still pending. CM will plan on sending out additional SNF referrals tomorrow with Tanja's permission. A: 86 year old female admitted to [facility] 10/16/21 for suspected C-Diff, SIRS, Ambulatory dysfunction P: Tanja will likely transfer to a SNF for short term rehab before returning home. SNF referral is pending at [facility]. She will follow up with the facility providers and plan of care and transport will be determined by disposition. CM will continue to support Tnaja and assess for discharge planning needs.
[2021-10-21] MEDS: Gabapentin 300 MG CAP 600 MG PO ×2 (11:17→21:07)
[2021-10-21] MEDS: Methadone 5 MG TAB PO ×2 (11:17→21:07)
[2021-10-21] MEDS: Pantoprazole 40 MG TABCR PO ×2 (11:18→21:07)
[2021-10-21] MEDS: Cholestyramine/Aspartame PKT 1 EACH PO (11:18)
[2021-10-21] MEDS: Multivitamin TAB 1 TAB PO (11:18)
[2021-10-21] MEDS: Ferrous Sulfate 325 MG TAB PO (11:18)
[2021-10-21] MEDS: predniSONE 20 MG TAB PO (11:18)
[2021-10-21] MEDS: Folic Acid 1 MG TAB PO (11:18)
[2021-10-21] MEDS: Psyllium PKT 1 EACH PO ×2 (11:18→21:06)
[2021-10-21] MEDS: Lactobacillus Acidophilus CAP 1 CAP PO ×3 (11:18→21:07)
[2021-10-21] MEDS: Sucralfate 1 GM TAB PO ×3 (11:18→21:07)
[2021-10-21] MEDS: Protein Nutritional Supplement 16 GM 1 OUNCE PACKET PO ×3 (11:19→21:06)
[2021-10-21] MEDS: Lidocaine 5% Patch 1 PATCH TP (11:19)
[2021-10-21 11:29] LABS: Campylobacter PCR Negative (Negative); Salmonella PCR Negative (Negative); Shiga Toxin PCR Negative (Negative); Shigella/Enteroinvasive Ecoli Negative (Negative)
--- NOTE | 2021-10-21 11:54 | W.ANESPOSTOP ---
Postoperative Evaluation Date, Time and Location Date Performed: 10/21/21 Time Performed: 10:40 Patient Location: PACU Vital Signs Most Recent Imported Vital Signs: Most Recent Vital Signs Temp Pulse Resp BP Pulse Ox 36.8 C 80 11 L 119/37 L 94 10/21/21 10:43 10/21/21 10:43 10/21/21 10:43 10/21/21 10:43 10/21/21 10:43 Pain Score Most Recent Pain Score: Most Recent Pain Score Pain Level 2 10/21/21 11:17 Assessment Mental Status: Awake (Alert & Oriented to Patient Baseline) Airway and Respiratory Function: Patent airway with normal (patient baseline) respiratory exam Cardiovascular Function: Hemodynamically Stable Hydration Status: Adequately Hydrated Nausea & Vomiting: No Nausea or Vomiting Pain: Pt. Denies Any Pain Peripheral Nerve Block: Patient did not receive a nerve block
--- NOTE | 2021-10-21 13:37 | W.PM.ENDDOP ---
Date of service: 10/21/21 Time of Service: 10:00 Endoscopy Report DATE OF PROCEDURE: 10/21/21 PRE-OP DIAGNOSIS: Anemia and blood in stools POST-OP DIAGNOSIS: same PROCEDURE: EGD SURGEON: Florencia Quispe ANESTHESIA TYPE: General:No Airway (see anesthesia record) ESTIMATED BLOOD LOSS: 0 PATHOLOGY: none sent COMPLICATIONS: None DISPOSITION: PACU INDICATIONS: Tanja is a pleasant 86-year-old female who was admitted back to the hospital for diarrhea and noted to be anemic again. This time her stool was positive. She was given some blood and has been dropping her hemoglobin since then. She continues to have positive fecal occult tests. EGD was recommended to start out to see if we could find a source of bleeding with possible colonoscopy if the EGD was normal. Risks, benefits and complications have been reviewed. Complications include but are not limited to bleeding, pain, perforation, sore throat, aspiration, and adverse reaction to the medications. Questions were entertained and answered to their satisfaction and they wished to proceed. No guarantees were given or implied. PROCEDURE START TIME: 10:07 FINDINGS: mild inflammation of the stomach. NO source of bleeding identified PROCEDURE DESCRIPTION: After informed consent was obtained the patient was take to the procedure room and placed in a supine position. Monitors were applied and a time out was done. The patients name, date of , procedure type, allergies to medications and metal in their body was reviewed. A bite block was placed and the patient was sedated. Once sedated and comfortable the gastroscope was advanced through the oropharynx which was grossly normal into the esophagus. The proximal and mid-esophagus were normal. In the distal esophagus there was mild inflammation noted. There was soft food particles noted throughout the esophagus. The scope was advanced into the stomach and through the pylorus into the 3rd portion of the duodenum. The duodenum was noted to be normal. The scope was retracted back into the stomach. There were no ulcers and only mild inflammation. There was no old or new blood. The scope was retroflexed. The cardia and fundus were noted to be normal. The scope was retracted back into the esophagus. The Z line was regular. The GE junction was at 35 cm. The scope was removed and the patient was woken up and taken back to [facility] in stable condition. Follow up: Patient will need to have a colonoscopy as I could not find a source of bleeding. Dicussed with the hospitalist and the patient.
--- NOTE | 2021-10-21 13:56 | W.PM.PROGNOT ---
Date of Service Date of service: 10/21/21 Time of Service: 13:56 Assessment and Plan Assessment and plan (1) Guaiac positive stools: Status: Acute Assessment and plan: EGD not revealing of her source of her GI bleeding. her hemoglobin level has been drifting down gradually. She is now at 9.0 gm. At present she does not require another transfusion but if she drops below 8 gm then I would give her a transfusion of PRBC. She will have c-scope tomorrow to search for her source of GI bleeding. Case discussed w/ Dr. Quispe. (2) Diarrhea: Status: Acute Assessment and plan: Probable side effect from her recent Augmentin. Stool negative for C. difficile. Continue Metamucil and Questran. Some of her diarrhea may be contributed by ongoing GI bleeding. (3) Myasthenia gravis: Status: Chronic Assessment and plan: Patient is chronically on prednisone 20 mg daily. She had been getting plasmapheresis every two weeks but now is on a weekly schedule which was scheduled for tomorrow. I have asked pet care assistant and the nursing floor charge nurse to work w/ her physician at [facility] to arrange follow up plasmapheresis later in the week after her c-scope (4) Atrial fibrillation: Status: Chronic Assessment and plan: Paroxysmal, currently in SR. No longer on anticoagulation due to anemia, which we now know is heme +. Would hold off on resumption of anticoagulation given above. She is not currently on medications for rate control. Qualifiers: Atrial fibrillation type: paroxysmal Qualified Code(s): I48.0 - Paroxysmal atrial fibrillation (5) Ambulatory dysfunction: Status: Acute Assessment and plan: Consulted PT/OT. Monitor for iprovement. May require placement to subacute rehab facility. (6) Decubitus ulcer of sacral area: Status: Acute Assessment and plan: Wound care consult. (7) DVT prophylaxis: Status: Acute Assessment and plan: SCDs. Hold chemical DVT ppx in setting of Heme + stools. (8) Discharge planning issues: Status: Acute Assessment and plan: Full code Will need subacute rehab placement on discharge. Care management to consider location of this as the patient is to get plasmapharesis at [facility] on weekly basis. Subjective Subjective Interval history since last seen: Patient had her EGD this morning and Dr. Quispe did not find an etiology for her bleeding. She spoke w/the patient who is agreeable to having a c-scope to find her source of bleeding. She also spoke w/ anesthesia who is willing to provide anesthesia for her c-scope. Patient will have her bowel prep today and her c-scope tomorrow. Unfortunately this will delay her having her plasmapharesis for her myasthenia gravis which she gets weekly and was scheduled for tomorrow. Exam Narrative Exam Narrative: Elderly female who is tired but easily arouseable and converses w/ me Lungs: some bibasilar rales; no rhonchi or wheezing Heart: regular at controlled rate Abdomen: soft, nontender and nondistended Objective Last Vital Signs Temp 36.8 C 10/21/21 10:43 Pulse 80 10/21/21 10:43 Resp 11 L 10/21/21 10:43 BP 119/37 L 10/21/21 10:43 Pulse Ox 94 10/21/21 10:43 Laboratory Results - last 24 hr 10/19/21 10/20/21 10/21/21 15:30 12:55 06:20 WBC RBC Hgb Hct MCV MCH MCHC RDW Plt Count MPV Immature Gran % Neutrophils % Lymphocytes % Monocytes % Eosinophils % Basophils % Nucleated RBC % Absolute Neutrophils Absolute Lymphocytes Absolute Monocytes Absolute Eosinophils Absolute Basophils Sodium 142 Potassium 4.0 Chloride 109 H Carbon Dioxide 26.1 Anion Gap 6.9 BUN 15 Creatinine 1.0 Estimated GFR/1.73 m2 52.82 Glucose 60 L Calcium 8.2 L Stool Campylobacter PCR Negative Stool Salmonella PCR Negative Stool Shigella PCR Negative SARS-CoV-2 (PCR) Negative Shiga Toxin (PCR) Negative 10/21/21 06:20 WBC 8.41 RBC 2.93 L Hgb 9.0 L Hct 29.0 L MCV 99.0 H MCH 30.7 MCHC 31.0 L RDW 18.0 H Plt Count 114 L MPV 10.7 Immature Gran % 0.5 Neutrophils % 86.9 Lymphocytes % 8.0 Monocytes % 3.7 Eosinophils % 0.8 Basophils % 0.1 Nucleated RBC % 0 Absolute Neutrophils 7.31 H Absolute Lymphocytes 0.67 L Absolute Monocytes 0.31 Absolute Eosinophils 0.07 Absolute Basophils 0.01 Sodium Potassium Chloride Carbon Dioxide Anion Gap BUN Creatinine Estimated GFR/1.73 m2 Glucose Calcium Stool Campylobacter PCR Stool Salmonella PCR Stool Shigella PCR SARS-CoV-2 (PCR) Shiga Toxin (PCR)
[2021-10-21] MEDS: Furosemide 20 MG/2 ML VIAL IVP (15:20)
--- NOTE | 2021-10-21 15:30 | PT.INNT ---
Date of service: 10/21/21 Time of Service: 03:30 PT Notes Visit Reasons: Suspected C.Diff,SIRS,Ambulatory dysfunction Patient appears fatigued and mildly sedated and confused when this PT showed up to attempt a session. States that she does not feel well from her EGD procedure that happened before lunch today and would prefer to stay resting on her bed. Will attempt to see patient tomorrow morning a for continued rehab as tolerated. Thank you for the opportunity to participate in the care of this patient. Anamika Miner PT, DPT, CLT [facility] [place], [place]
[2021-10-21] MEDS: HYDROmorphone 2 MG TAB PO (16:47)
[2021-10-21] MEDS: Albuterol HFA 8 GM 60 PUFF INH IH (21:06)
[2021-10-21] MEDS: Melatonin 3 MG TAB 9 MG PO (21:07)
[2021-10-22] VITALS (16 sets, daily range): BP systolic 119–152; BP diastolic 38–91; PULSE 64–90; RESP 12–22; TEMP 35.8–37; TEMPC 36.4; O2SAT 86–97; BMI 16.5
--- NOTE | 2021-10-22 | DI.CT_ITS ---
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 Subjacent atelecta sis seen in the right lung base. Bronchiectatic changes are seen in the right middle lobe and left l ingula similar in appearance to the CT scan of the chest from 10/10/2021. Liver: Normal density. No measurable mass. Portal, Superior Mesenteric, and Splenic Veins: Unremarkable. Gallbladder and Biliary Tract: No radiodense calculus or dilation. The gallbladder is contracted. Pancreas: Normal density, no abnormal calcifications or inflammatory process. Spleen: Normal. Adrenals: No masses seen. Kidneys: Normal size, contour and axis. No radiodense stones or obstructive uropathy. No masses seen. Abdominal Aorta: Abdominal portion non-dilated. Extensive atherosclerosis. There is tortuosity of th e abdominal aorta. Bowel: No evidence of bowel obstruction. There is thickening along the there is focal thickening marcy ng the inferior and lateral aspect of the cecum. This may represent a cecal mass and the patient's k nown cecal carcinoma. No evidence of appendicitis. Peritoneal Cavity: No ascites, collection or mesenteric inflammatory response. No free air. Lymph Nodes: Within normal limits. Bones: Within normal limits for the patient's age. There are multiple stable compression deformities in the lower thoracic and lumbar spine. The bones are osteopenic. Soft Tissues: There is irregularity of the skin overlying the sacrum and coccyx. No focal fluid jody ection is seen. A decubitus ulcer cannot be excluded. Please correlate with physical exam. PELVIS: Bladder: Symmetric distention, no gross wall thickening. Reproductive Organs: Unremarkable as visualized. Lymph Nodes: Within normal limits. Bones: Please see the above discussion. IMPRESSION: 1. Soft tissue seen along the inferior aspect of the cecum suspicious for mass. 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 2. No evidence of abdominal or pelvic metastatic disease. 3. Small bilateral pleural effusions and subjacent atelectasis in the right lung base. 4. Soft tissue irregularity overlying the sacrum and coccyx. A cubitus ulcer cannot be excluded. Pl ease correlate clinically. RADIATION DOSE DELIVERED: 791.55mGy.cm Total DLP DATA REPOSITORY: All CT scans at this facility are submitted to the National Radiology Data Registry (NRDR) Dose Index Registry (DIR) with the [employer] (ACR). RADIATION OPTIMIZATION: All CT scans at this facility use at least one of these dose optimization te chniques: automated exposure control; mA and/or kV adjustment per patient size (includes targeted exa ms where dose is matched to clinical indication); or iterative reconstruction.
[2021-10-22 06:57] LABS: Abs Immature Grans 0.04 10^3/uL (0.0-0.06); Absolute Basophil Count 0.01 10^3/uL (0.0-0.2); Absolute Eosinophil Count 0.03 10^3/uL (0.0-0.7); Absolute Lymphocyte Count 0.37 10^3/uL (1.2-3.4); Absolute Monocyte Count 0.26 10^3/uL (0.1-0.8); Absolute Neutrophil Count 6.37 10^3/uL (1.2-6.7); Basophils % 0.1; Eosinophils % 0.4; HGB 8.4 g/dL (11.2-15.7); Immature Grans % 0.6; Lymphocytes % 5.2; MCH 30.8 pg (27.0-33.0); MCHC 31.1 % (32.0-36.0); MCV 98.9 fL (80-95); MPV 10.1 fL (8.0-11.0); Monocytes % 3.7; Nucleated RBC 0 %; Platelet Count 108 10^3/uL (130-400); RBC 2.73 10^6/uL (3.93-5.22); RDW 18.2 % (11.7-14.6); RDW-SD 66.1 fL; WBC 7.08 10^3/uL (4.4-10.8)
[2021-10-22 07:25] LABS: Anion Gap 7.5 mmol/L (3-11); BUN 17 mg/dL (7-18); CO2 28.5 mmol/L (21.0-32.0); CREATININE 0.8 mg/dL (0.55-1.02); Chloride 107 mmol/L (98-107); Glucose 73 mg/dL (74-106); Potassium 3.3 mmol/L (3.5-5.1); Sodium 143 mmol/L (136-145)
--- NOTE | 2021-10-22 08:02 | PGE_ITS ---
Documented by User: MARILEE Hansen 10/22/21 08:10 Date of Service Date of service: 10/22/21 Time of Service: 08:02 Assessment and Plan Assessment and plan (1) Diarrhea: Status: Acute Assessment and plan: C.diff ruled out. COVID-19 ruled out. Has resolved since admission (2) Guaiac positive stools: Status: Acute Assessment and plan: EGD unremarkable. She is back on Carafate and protonix She has completed bowel prep. With continued bloody stools. Scheduled for Colonoscopy later today. (3) Myasthenia gravis: Status: Chronic (4) Atrial fibrillation: Status: Chronic Assessment and plan: Paroxysmal, currently in SR. She is not currently on medications for rate control. Qualifiers: Atrial fibrillation type: paroxysmal Qualified Code(s): I48.0 - Pa roxysmal atrial fibrillation Subjective Subjective Interval history since last seen: Patient reports that she has been making progress with the bowel prep. She reports that she continues to have blood in her stools. She denies any pain, chest pain and SOB. Exam Const General: cooperative, healthy appearing and comfortable Orientation: alert and oriented x3 Resp Effort & Inspection: normal respiratory effort, no audible wheezes and no cough Objective Last Vital Signs Temp 35.8 C L 10/22/21 07:40 Pulse 71 10/22/21 07:40 Resp 16 10/22/21 07:40 BP 119/91 H 10/22/21 07:40 Pulse Ox 95 10/22/21 07:40 Laboratory Results - last 24 hr 10/19/21 10/19/21 10/22/21 15:30 15:30 06:45 WBC RBC Hgb Hct MCV MCH MCHC RDW Plt Count MPV Immature Gran % Neutrophils % Lymphocytes % Monocytes % Eosinophils % Basophils % Nucleated RBC % Absolute Neutrophils Absolute Lymphocytes Absolute Monocytes Absolute Eosinophils Absolute Basophils Sodium 143 Potassium 3.3 L Chloride 107 Carbon Dioxide 28.5 Anion Gap 7.5 BUN 17 Creatinine 0.8 Estimated GFR/1.73 m2 >= 60.00 Glucose 73 L Calcium 8.0 L Stool Description Not Applicable Stool Campylobacter PCR Negative Stool Salmonella PCR Negative Stool Shigella PCR Negative Stool Ova & Parasites SEE BELOW Shiga Toxin (PCR) Negative 10/22/21 06:45 WBC 7.08 RBC 2.73 L Hgb 8.4 L Hct 27.0 L MCV 98.9 H MCH 30.8 MCHC 31.1 L RDW 18.2 H Plt Count 108 L MPV 10.1 Immature Gran % 0.6 Neutrophils % 90.0 Lymphocytes % 5.2 Monocytes % 3.7 Eosinophils % 0.4 Basophils % 0.1 Nucleated RBC % 0 Absolute Neutrophils 6.37 Absolute Lymphocytes 0.37 L Absolute Monocytes 0.26 Absolute Eosinophils 0.03 Absolute Basophils 0.01 Sodium Potassium Chloride Carbon Dioxide Anion Gap BUN Creatinine Estimated GFR/1.73 m2 Glucose Calcium Stool Description Stool Campylobacter PCR Stool Salmonella PCR Stool Shigella PCR Stool Ova & Parasites Shiga Toxin (PCR) Documented by User: Christa Blackwell DO 10/22/21 17:11 Assessment and Plan Assessment and plan (1) Diarrhea: Status: Acute (2) Guaiac positive stools: Status: Acute (3) Myasthenia gravis: Status: Chronic (4) Atrial fibrillation: Status: Chronic Qualifiers: Atrial fibrillation type: paroxysmal Qualified Code(s): I48.0 - Paroxysmal atrial fibrillation (5) Decubitus ulcer of sacral area: Status: Acute (6) GI bleed: Status: Chronic Assessment and plan: Pt is here today for a CE for GI bleeding. EGD yesterday shows upper GI tract is not source of bleeding. pt completed bowel prep- stool is black liquid w/ thick residue. Informed consent is obtained for the procedural (explained in simple layman's terms that the pt and/or family could understand) explaining risks vs benefits and alternatives to the procedure and consequences if we do not do the procedure and need/rational for the procedure. Risks include but are not limited to: bleeding, infection, perforation of colon. This would necessitate emergency surgery to repair the damage w/ possible ostomy; and other associated complications w/ the required surgery. Also complications of anesthesia including: aspiration, NM/CVA/. pt had no problems w/ anesthesia yesterday. Qualifiers: GI bleed type/associated pathology: melena Qualified Code(s): K92.1 - Melena (7) Descending aortic aneurysm: Status: Chronic (8) Pneumonia: Status: Acute Qualifiers: Pneumonia type: due to unspecified organism Laterality: right Lung location: lower lobe of lung Qualified Code(s): J18.9 - Pneumonia, unspecified organism (9) COPD (chronic obstructive pulmonary disease): Status: Chronic Qualifiers: COPD type: unspecified COPD Qualified Code(s): J44.9 - Chronic obstructive pulmonary disease, unspecified (10) Thrush, oral: Status: Acute (11) Hx of deep venous thrombosis: Status: Resolved (12) Pulmonary arterial hypertension: Status: Ruled-out (13) Eating disorder: Status: Acute (14) Aspiration pneumonitis: Status: Acute (15) Compression fracture of spine: (16) Chronic pain: (17) Chronic insomnia: (18) Chronic constipation: (19) Cardiomyopathy: (20) Dysphagia: (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
--- NOTE | 2021-10-22 08:40 | W.ANESPRE ---
General Info Date of Service Date Performed: 10/22/21 Height: 5 ft 8 in Weight: 49.442 kg Body Mass Index (BMI): 16.5 Surgical Procedure: Operation Date: 10/21/21 09:05 Proposed Procedures Side Surgeon p Gastroscopy Florencia Quispe MD Actual Procedures Side Surgeon p Gastroscopy Not Applicable Florencia Quispe MD Pre-Op Diagnosis Post-Op Diagnosis DIARRHEA, GUAIC POSITIVE STOOL MILD GASTRITIS, ESOPHAGITIS Operation Date: 10/22/21 12:35 Proposed Procedures Side Surgeon p Colonoscopy Florencia Quispe MD Meds Allergies and Home Medications Allergies Allergy/AdvReac Type Severity Reaction Status Date / Time FAHAD Inhibitors Allergy Unverified 10/16/21 18:32 Beta-Blockers Allergy Unverified 10/16/21 18:32 (Beta-Adrenergic Bloc Sulfa (Sulfonamide Allergy Hives Verified 10/16/21 18:32 Antibiotics) sulfamethoxazole Allergy Unverified 10/16/21 18:32 [From Bactrim] trimethoprim [From Bactrim] Allergy Unverified 10/16/21 18:32 Home Medication Medication Instructions Recorded gabapentin 600 mg PO BID 07/08/17 cyanocobalamin (vitamin B-12) 1 ea IM .QMONTH 07/27/17 ergocalciferol (vitamin D2) 50,000 units PO .QOWEEK 07/27/17 [Vitamin D2] bisacodyl 1 ea NC PRN PRN 09/26/17 sennosides 8.6 mg tablet 8.6 mg PO BID PRN 08/02/18 methadone [Dolophine] 5 mg PO BID 08/06/18 acetaminophen [Tylenol] 650 mg PO Q4H PRN PRN #30 tab 08/10/18 multivitamin [Multiple Vitamins] 1 tab PO DAILY 08/16/18 hydromorphone [Dilaudid] 2 mg PO Q4H PRN PRN MDD 6 02/04/20 melatonin 10 mg PO HS 02/04/20 ferrous sulfate 325 mg PO DAILY #0 tab 02/12/20 acidophilus-pectin, citrus 1 cap PO AC #0 tab 02/15/20 furosemide [Lasix] 40 mg PO QAM 09/18/20 prednisone 20 mg PO DAILY 09/19/20 albuterol sulfate [ProAir HFA] 2 puff INHALATION QID #6.7 g 10/29/20 amoxicillin-pot clavulanate 1 tab PO BID #6 tab 10/15/21 [Augmentin] folic acid 1 mg PO DAILY 10/16/21 lidocaine 1 patch TOPICAL DAILY PRN 10/16/21 Current Visit Medications: Current Medications Generic Name Dose Route Start Last Admin Trade Name Freq PRN Reason Stop Dose Admin Acetaminophen 0 mg 10/16/21 18:40 Acetaminophen 325 Mg Tab PO Q4H PRN PRN Acidophilus/Pectin 1 cap 10/19/21 20:00 10/21/21 21:07 Lactobacillus Acidophilus Cap PO 1 cap TID MARIA Administration Al Hydrox/Mg Hydrox/Simethicone 30 ml 10/16/21 18:40 Mylanta Suspension 30 Ml Cup PO Q2H PRN PRN Albuterol Sulfate 2 puff 10/16/21 20:00 10/21/21 21:06 Albuterol Hfa 8 Gm 60 Puff Inh IH 2 puff QID MARIA Administration Cholestyramine/Aspartame 1 each 10/16/21 19:00 10/21/21 17:55 Cholestyramine/Aspartame Pkt PO Not Given 1000,1900 [facility] Clotrimazole 40 gm/ Zinc Oxide 0 gm 10/19/21 14:00 10/21/21 21:19 40 gm/ Vitamin A/Vitamin D 40 TP 1 applicatio gm TID MARIA Administration Device 1 each 10/16/21 19:00 Inhaler, Assist Device MC DIRECTED MARIA Ferrous Sulfate 325 mg 10/17/21 08:30 10/21/21 11:18 Ferrous Sulfate 325 Mg Tab PO 325 mg DAILY MARIA Administration Folic Acid 1 mg 10/17/21 08:30 10/21/21 11:18 Folic Acid 1 Mg Tab PO 1 mg DAILY MARIA Administration Gabapentin 600 mg 10/16/21 20:00 10/21/21 21:07 Gabapentin 300 Mg Cap PO 600 mg BID MARIA Administration Hydromorphone HCl 2 mg 10/16/21 18:46 10/21/21 16:47 Hydromorphone 2 Mg Tab PO 2 mg Q4H PRN PRN Administration Ringer's Solution 1,000 mls @ 50 mls/hr 10/20/21 23:00 10/21/21 15:50 IV 50 mls/hr INFUSION MARIA Infusion Lactobacillus Acidophilus/Casei 1 cap 10/17/21 08:30 10/21/21 11:17 L. Acidophilus, Casei, Rhamnosus Cap PO 1 cap DAILY MARIA Administration Lidocaine 1 patch 10/16/21 18:46 10/21/21 11:19 Lidocaine 5% Patch TP 1 patch DAILY PRN Administration Melatonin 9 mg 10/16/21 22:00 10/21/21 21:07 Melatonin 3 Mg Tab PO 9 mg HS MARIA Administration Methadone HCl 5 mg 10/16/21 20:00 10/21/21 21:07 Methadone 5 Mg Tab PO 5 mg BID MARIA Administration Multi-Ingredient Supplement 1 ounce 10/21/21 08:30 10/21/21 21:06 Protein Nutritional Supplement 16 Gm 1 Ounce Packet PO 1 ounce TID MARIA Administration Multivitamins 1 tab 10/17/21 08:30 10/21/21 11:18 Multivitamin Tab PO 1 tab DAILY MARIA Administration Pantoprazole Sodium 40 mg 10/19/21 20:00 10/21/21 21:07 Pantoprazole 40 Mg Tabcr PO 40 mg BID@0730,2000 MARIA Administration Pt's Own Vitamin B12 0 each 10/20/21 14:30 Cyanocobalamin 1000 IM Mcg/Ml 1 Ml Vial DIRECTED MARIA Prednisone 20 mg 10/19/21 08:30 10/21/21 11:18 Prednisone 20 Mg Tab PO 20 mg DAILY MARIA Administration Psyllium Hydrophilic Mucilloid 1 each 10/19/21 20:00 10/21/21 21:06 Psyllium Pkt PO 1 each BID MARIA Administration Sodium Chloride 0 ml 10/20/21 16:28 Normal Saline Flush 10 Ml Syr IVP PRN PRN Sucralfate 1 gm 10/19/21 11:30 10/21/21 21:07 Sucralfate 1 Gm Tab PO 1 gm AC & HS MARIA Administration PFSH Active Problems Active Problems: Problem Status Onset Code Decubitus ulcer of sacral area L89.159 Ambulatory dysfunction R26.2 Diarrhea R19.7 Guaiac positive stools R19.5 Palliative care patient Z51.5 UTI (urinary tract infection) N39.0 Dependent edema R60.9 GI bleed K92.2 Descending aortic aneurysm I71.9 Pneumonia J18.9 COPD (chronic obstructive pulmonary disease) J44.9 Weakness R53.1 Exertional dyspnea R06.00 Ileus, unspecified K56.7 Elevated troponin R79.89 CHF (congestive heart failure) Weakness R53.1 Thrush, oral B37.0 Discharge planning issues Z02.9 Hx of deep venous thrombosis Atrial fibrillation Myasthenia gravis G70.00 Multifocal pneumonia J18.9 Septic shock A41.9, R65.21 Pseudomonas pneumonia Aspiration pneumonitis J69.0 Eating disorder F50.9 Debility R53.81 Sepsis A41.9 DVT prophylaxis [id number] Hypokalemia E87.6 Medical History Active Problem List (Updated 10/20/21 @ 12:27 by Gerardo Kinsey CRNA) Decubitus ulcer of sacral area (Acute) Ambulatory dysfunction (Acute) Diarrhea (Acute) Guaiac positive stools (Acute) Palliative care patient (Acute) UTI (urinary tract infection) (Acute) Dependent edema (Acute) GI bleed (Chronic) Descending aortic aneurysm (Chronic) Pneumonia (Acute) COPD (chronic obstructive pulmonary disease) (Chronic) Weakness (Acute) Exertional dyspnea (Acute) Ileus, unspecified (Acute) Elevated troponin (Acute) Weakness (Acute) Thrush, oral (Acute) Discharge planning issues (Acute) Atrial fibrillation (Chronic) Myasthenia gravis (Chronic) Multifocal pneumonia (Acute) Pseudomonas pneumonia (Acute) Aspiration pneumonitis (Acute) Eating disorder (Acute) Debility (Acute) Sepsis (Acute) DVT prophylaxis (Acute) Hypokalemia (Acute) Medical History (Updated 10/20/21 @ 12:27 by Gerardo Kinsey CRNA) Aspiration pneumonia B12 deficiency Cardiomyopathy Echo 12/10/2018: EF 60-65%, up from 35% previously; does have diastolic dysfunction Chronic constipation Chronic insomnia Chronic pain on methadone therapy Compression fracture of spine Depression Dysphagia 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 Gastrostomy Tube Placement H/O wisdom tooth extraction S/P appendectomy Tobacco Smoking/Tobacco Use Status: Never Alcohol Alcohol Intake: current Alcohol intake frequency: a few times a week Alcohol type: hard liquor Substance Use Substance use: Never Substance use type: does not use Vital Signs and Lab Results Vital Signs Most Recent Vital Signs in EMR: Most Recent Vital Signs Temp Pulse Resp BP Pulse Ox 35.8 C L 71 16 119/91 H 95 10/22/21 07:40 10/22/21 07:40 10/22/21 07:40 10/22/21 07:40 10/22/21 07:40 Lab Results Result Diagrams: 10/22/21 06:45 10/22/21 06:45 Blood Type / Crossmatch: Patient ABO/Rh O Negative 10/19/21 10:49 10/19/21 Antibody Screen NEGATIVE 10/19/21 10:49 10/19/21 Crossmatch See Detail 10/14/21 10:07 10/14/21 Complete Blood Count: White Blood Count 7.08 10^3/uL (4.4-10.8) 10/22/21 06:45 10/22/21 Red Blood Count 2.73 10^6/uL (3.93-5.22) L 10/22/21 06:45 10/22/21 Hemoglobin 8.4 g/dL (11.2-15.7) L 10/22/21 06:45 10/22/21 Hematocrit 27.0 % (36.0-46.0) L 10/22/21 06:45 10/22/21 Platelet Count 108 10^3/uL (130-400) L 10/22/21 06:45 10/22/21 Complete Metabolic Panel: Sodium Level 143 mmol/L (136-145) 10/22/21 06:45 10/22/21 Potassium Level 3.3 mmol/L (3.5-5.1) L 10/22/21 06:45 10/22/21 Chloride Level 107 mmol/L (98-107) 10/22/21 06:45 10/22/21 Carbon Dioxide Level 28.5 mmol/L (21.0-32.0) 10/22/21 06:45 10/22/21 Blood Urea Nitrogen 17 mg/dL (7-18) 10/22/21 06:45 10/22/21 Creatinine 0.8 mg/dL (0.55-1.02) 10/22/21 06:45 10/22/21 Estimated GFR/1.73 m2 >= 60.00 (mL/min/1.73m2) 10/22/21 06:45 10/22/21 Magnesium Level 2.0 mg/dL (1.8-2.4) 10/17/21 05:25 10/17/21 Calcium Level 8.0 mg/dL (8.5-10.1) L 10/22/21 06:45 10/22/21 Albumin 3.0 g/dL (3.4-5.0) L 10/20/21 06:30 10/20/21 Glucose Level 73 mg/dL (74-106) L 10/22/21 06:45 10/22/21 C-Reactive Protein 3.41 mg/dL (0.0-0.3) H 10/20/21 06:30 10/20/21 Liver Function Panel: Alanine Aminotransferase (ALT/SGPT) 12 U/L (14-59) L 10/20/21 06:30 10/20/21 Aspartate Amino Transf (AST/SGOT) 16 U/L (15-37) 10/20/21 06:30 10/20/21 Coagulation Panel: INR International Normalized Ratio 1.2 (0.9-1.1) H 10/16/21 16:00 10/16/21 Prothrombin Time 12.2 sec (9.3-11.0) H 10/16/21 16:00 10/16/21 Activated Partial Thromboplast Time 28.5 sec (21.0-27.5) H 10/16/21 16:00 10/16/21 Cardiac Panel: Troponin I < 0.05 ng/mL (<0.06) 10/10/21 22:55 10/10/21 NA-Fxu-[id number]-Type Natriuretic Peptide 927 pg/mL (<300) H 10/10/21 20:30 10/10/21 Arterial Blood Gas: No Data to Display Venous Blood Gas: No Data to Display Pancreas Panel: No Data to Display Thyroid Panel: Thyroid Stimulating Hormone (TSH) 0.27 uIU/mL (0.36-3.74) L 10/10/21 20:30 10/10/21 Infectious Disease: Coronavirus (COVID-19)(PCR) Negative (Negative) 10/20/21 12:55 10/20/21 Coronavirus 2019 Source Nasal/Nares 10/20/21 12:55 10/20/21 Blood Cultures: No Data to Display Toxicology Panel: No Data to Display Imaging and Studies Imaging and Studies EKG Summary: DATE/TIME OF SERVICE: 10/16/21 1742 Exam: Resting ECG Reason for Exam: weakness HR:70 bpm ECG Measurements Heart Rate 70 AXIS NC 226 P 83 QRSd 92 QRS -26 QT 410 T-16 QTc 444 Conclusion NSR Prolonged NC interval.. Nonspecific st changes Echocardiogram Summary: Date of Exam: 10/11/21Sex: F Admission Date: 10/10/21 Indications: CHF Other Information Study Quality: Fair. Technically limited study due to body habitus, inability to position patient. Conclusion Normal left ventricular wall thickness and chamber size. Estimated ejection fraction is 55%. There are no segmental wall motion abnormalities Normal right ventricular size and systolic function The right atrium is not well visualized. The left atrium is normal in size Aortic valve is trileaflet with trace to mild regurgitation Structurally normal mitral valve with mild regurgitation The tricuspid valve is not well visualized. There is mild to moderate regurgitation. Estimated right ventricular systolic pressure is 28 mmHg Normal pulmonic valve with trace regurgitation Dilated ascending aorta measuring 3.38 cm Anesthesia Assessment and Plan Anesthesia History Personal History: No History of Anesthesia Complications Family History: No Family History of Anesthesia Complications Exercise Tolerance Exercise Tolerance: Metabolic Equivalents>4 Pertinent Negatives Pertinent Negatives: No Major Cardiovascular Symptoms or Complaints (CHF Hx good echo 10/11/21), No Major Pulmonary Symptoms or Complaints (WEBB likely due to anemia) and No History of CVA/TIA Cardiac & Pulmonary Exam Cardiac Exam: Normal S1/S2 Heart Sounds Pulmonary Exam: Clear Bilateral Breath Sounds Implantable Cardiac Device Does patient have a Pacemaker or an ICD?: No Airway Exam Known Difficult Airway: No Mallampati Class: 3 Mouth Opening: Narrow (< 3cm) Thyromental Distance: Less than 3 cm Neck Range of Motion: Limited ROM Neck Circumference: Normal Teeth Condition: Normal Dentition and Removable Dentures/Plates Lower Airway Comments: multiple missing, denies any loose, bridge not currently in. ASA Classification ASA Score: ASA 3 Emergency Case?: No NPO Status NPO Status: NPO Clears >2 hours, Solids >8 hours Anesthesia Plan Resuscitation Status: Full Code Anesthesia Technique: General Anesthesia Airway Planned: Natural Airway Pain Management: Surgeon and patient request nerve block Monitors Used: Standard Monitors
--- NOTE | 2021-10-22 08:54 | OT.INNT ---
Date of service: 10/22/21 Time of Service: 08:54 Occupational Therapy Notes 10/22/21 Pt is out of room at this time for tests, OT will attempt tomorrow for initiation of Occupational Therapy services. Angela Warner OTR/[facility] [place], [place]
--- NOTE | 2021-10-22 08:55 | PDOC.CMPRO ---
- If Service Date Differs Date of service: 10/22/21 Time of Service: 08:55 Care Management Progress Note S/O: Tanja was offered SNF placement at [facility]. Elif from the rehab center is aware that Tanja will need weekly visits to [facility] for Plasma infusions and agrees to help her arrange transportation through [facility]. 1300 Tanja is not medically cleared for discharge per provider. She had a colonoscopy today and a 3 cm mass was found, the pathology is pending. Palliative consult is pending. Moving forward, CM offered to send referrals to SNF's closer to [facility] where she gets her infusions to reduce the hardship of traveling during the winter months. However, Tanja refused the offer. When she is medically cleared for discharge she wants to go to [facility]. Sharing that it is important for her to stay local for SNF and she doesn't mind the travel to [facility]. A: 86 year old female admitted to [facility] 10/16/21 for suspected C-Diff, SIRS, Ambulatory dysfunction P: Tanja was accepted at [facility] for SNF for short term rehab prior to returning home pending bed availability at the time of discharge. She will follow up with the facility providers and plan of care and transport via facility van. CM will continue to support Tanja and assess for discharge planning needs.
--- NOTE | 2021-10-22 09:20 | BOWEL_PTH ---
PATIENT: Tanja Carpio LOC: U#:[id number] AGE/SX: 86/F ROOM: 231 RE10/16/[address]: Shreya Parker : 1935 BED: A DIS: 10/23/2021 SPEC #: [id number] RECD: 10/22/21 12:51 STATUS: RAMIREZ REQ #: [id number] MINDA: 10/22/21 09:[address]: Shreya Parker DEPT: Surgical Specimen RECD BY: Chantell Elizabeth ENTERED: 10/22/21 12:52 SP TYPE: Bowel OTHR DR: Angela Warner,Maribell Quispe MD [facility] Tissues: 1 - BIOPSY BOWEL Procedures: GROSS AND MICRO LEVEL 4 IMMUNOPEROXIDASE STAIN Comments: [id number]
--- NOTE | 2021-10-22 09:54 | COLE_ITS ---
Colonoscopy Report Date of procedure: 10/22/21 Pre-op diagnosis general: anemia/rectal bleeding Post-op diagnosis procedure note: other (cecal cancer) Surgeon: Christa Blackwell Anesthesia Type: General:No Airway Estimated blood loss (mL): 10 Pathology: other Complications: None Disposition: PACU Prep: Miralax/Dulcolax Retraction Time: 15 Procedure Description: After informed consent was obtained the patient was taken to the procedure room and placed in a left decubitous position. Monitors were applied and a time out was done. The patients name, date of , procedure, allergies to medications and metal in their body was reviewed. The patient was then sedated. Once sedated and comfortable a rectal exam was done. External exam reveals sever excoriation of the saji-rectal region. SHe has a stage IV sacral decubitus ulcer. She has multiple areas of echymosis on her b/l LE. Internal exam revealed a normal sphincter tone and no palpable masses. The scope was then introduced and retrofelexed. No internal hemorrhoids were identified. The scope was then advanced to the cecum w/out difficulty. The TI and appendiceal orifice were identified. The prep was poor. The scope was then slowly retracted over 15 minutes back into the rectum. She has moderate diverticula of sigmoid colon. There are no signs of active bleeding or infection in the diverticula. The scope was removed and the patient was woken up and taken back to Same day surgery in stable condition. SHe has a Friable 3 cm flat mass in cecum. Multiple biopsy's are taken. The lesion is quite friable and bleeds readily. 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 The patient tolerated the procedure well and there were no immediate complications. CT and labs will be ordered today transfuse 1 unit PRBC in anticipation of continued blood loss will d/w pt what her wishes are regarding surgery. 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 She is very frail. She gets weekly plasmapheresis at [facility]. I think she should go to [facility] for her surgery The bx were sent to pathology at [facility] and I did contact susana solano MD regarding her path and she is being transferred to [facility]. I d/w the case w/ Dr. Knapp as well.
--- NOTE | 2021-10-22 09:58 | W.ANESPOSTOP ---
Postoperative Evaluation Date, Time and Location Date Performed: 10/22/21 Time Performed: 09:58 Patient Location: PACU Vital Signs Most Recent Imported Vital Signs: Most Recent Vital Signs Temp Pulse Resp BP Pulse Ox 36.0 C L 67 22 122/39 L 96 10/22/21 09:47 10/22/21 09:47 10/22/21 09:47 10/22/21 09:47 10/22/21 09:47 Most Recent Vital Signs Temp Pulse Resp BP Pulse Ox 36.8 C 80 11 L 119/37 L 94 10/21/21 10:43 10/21/21 10:43 10/21/21 10:43 10/21/21 10:43 10/21/21 10:43 Most Recent Manually Entered Vital Signs: Adult Blood Pressure: 122/39 Heart Rate: 77 Respirations: 16 Oxygen Saturation (%): 96 Temperature (C): 36.4 C Pain Score (0-10 Scale): 0 Pain Score Most Recent Pain Score: Most Recent Pain Score Pain Level 0 10/22/21 09:47 Assessment Mental Status: Awake (Alert & Oriented to Patient Baseline) Airway and Respiratory Function: Patent airway with normal (patient baseline) respiratory exam Cardiovascular Function: Hemodynamically Stable Hydration Status: Adequately Hydrated Nausea & Vomiting: No Nausea or Vomiting Pain: Pain is tolerable per patient Peripheral Nerve Block: Patient did not receive a nerve block
[2021-10-22] MEDS: Protein Nutritional Supplement 16 GM 1 OUNCE PACKET PO ×3 (10:53→22:10)
[2021-10-22] MEDS: Psyllium PKT 1 EACH PO ×2 (10:53→22:11)
[2021-10-22] MEDS: Cholestyramine/Aspartame PKT 1 EACH PO ×2 (10:53→19:22)
[2021-10-22] MEDS: Multivitamin TAB 1 TAB PO (10:54)
[2021-10-22] MEDS: Gabapentin 300 MG CAP 600 MG PO ×2 (10:54→22:10)
[2021-10-22] MEDS: Ferrous Sulfate 325 MG TAB PO (10:54)
[2021-10-22] MEDS: Methadone 5 MG TAB PO ×2 (10:54→22:11)
[2021-10-22] MEDS: Folic Acid 1 MG TAB PO (10:54)
[2021-10-22] MEDS: predniSONE 20 MG TAB PO (10:54)
[2021-10-22] MEDS: Lactobacillus Acidophilus CAP 1 CAP PO ×3 (10:55→22:10)
[2021-10-22] MEDS: Pantoprazole 40 MG TABCR PO ×2 (10:55→22:11)
[2021-10-22] MEDS: Acetaminophen 325 MG TAB 650 MG PO (11:30)
--- NOTE | 2021-10-22 12:37 | W.NUTCONSULT ---
Date of service: 10/22/21 Time of Service: 12:37 Nutritional Consult ASSESSMENT: 86yo female readmitted after discharge with sacral pressure wound, weakness/ambulatory dysfunction, diarrhea (resolved at this time), Guaiac+ stool, UTI, with PMH significant for Myasthenia Gravis, AFib, COPD, CHF and unspecified eating disorder. Estimated Needs: 5144-7454 kcal, 55-65 g protein. Meeting < 50% of caloric needs by mouth, meeting 80 % protein needs Pt currently NPO for CT scan. Supplemented with MVI, Vitamin C, Vitamin D, 1 oz liquid protien TID (provides 45 g protein) She reports lack of appetite/intake ? takes Boost (not in our stock) at home and dislikes ensure. Was interested in CIB frappes ? will offer BID when intake resumes. Pt reports difficulty keeping wt up ? says she has lost weight but could not give details (Weight dropped 2kg in the last 6 days). Will monitor weight and intake closely and check on toleration of meals and CIB supplement. NUTRITIONAL DIAGNOSIS: severe malnutrition as evidenced by low BMI, appearance Increased nutrient needs for optimal wound healing Eating Disorder unspecified INTERVENTION: CIB Frap BID providing approx. 500 kcal/ 8 grams protein 1oz liquid protien TID provides 180 kcal, 45 g protein MVI, Vit C and Vit D Provide preferred meals MONITORING AND EVALUATION: weight, po intake, labs Time Spent in Nutritional Counseling and Treatment: 0
[2021-10-22] MEDS: diphenhydrAMINE 25 MG CAP PO (13:00)
[2021-10-22] MEDS: Omnipaque 350 MG/ML 100 ML BTL IJ (13:07)
[2021-10-22] MEDS: Normal Saline Flush 10 ML SYR IVP ×2 (13:08→15:34)
--- NOTE | 2021-10-22 15:04 | CHAPLAIN ---
Tanja was visiting with her son, Frankie, when I stopped in. She told me that her recent scope had found a small amount of cancer. She said, it's ok. I'm 86 years old. She is still waiting for more information and to learn what her options are in dealing with the cancer. Frankie said he hopes to bring his mom back to his house in [place], where she has been living, and Tanja said it is likely that she will go to a SNF first, and Frankie agreed. Tanja is a [employer], and recently has been attending the [employer] by [employer].
[2021-10-22] MEDS: IRON SUCROSE COMPLEX 200 MG in Normal Saline 100 ML 400 MG IVPB (15:33)
--- NOTE | 2021-10-22 16:40 | PTTR_ITS ---
Date of service: 10/22/21 Time of Service: 16:40 PT Notes Visit Reasons: Suspected C.Diff,SIRS,Ambulatory dysfunction Inpatient Physical Therapy Treatment Note [facility] Date: 10/22/2021 PRECAUTIONS: Activity as Tolerated. Soft collar on for comfort when ambulating. SUBJECTIVE: Remains fatigued. Needed assistance with toileting and transfers. OBJECTIVE: PAIN: None reported throughout session BED MOBILITY/TRANSFERS: Supine-sit: independent with HOB at 30 degrees Sit-stand: SBA Stand-sit: SBA Bed-bedside commode: [facility] Chair-bed: [facility] Bed-chair: [facility] GAIT Assistive Device: FWW Weight bearing: Full Assist: SBA Distance: 5 feet +5 feet + 10 feet Deviation: Low michelle. Severe trunk and cervical anteroflexion but able to straighten trunk partially when asked however unable to maitain position for long. THEREX: Deferred due to hypokalemia at 3/3 mmol/L and H and H retesting not redone yet ASSESSMENT: Only essential ADLs were performed with caitie today, as she had a steady decrease of Hgb from 10.6 g/dL on 10/19/2021 down to 8.4 g/dL today and with Hct down from 34.8% on 10/19/2021 to 27.0% today requiring repletion of 1 PRBCs today. Patient is also hypokalemic with count down to 3.3 mmol/L with KCl repletion done during today's session. PLAN: Progress strength, activity tolerance, and mobility level as tolerated when laboratory values are back to WNL and patient can effectively participate in therapy. DISCHARGE RECOMMENDATIONS: [] Home with no services [] [] Home with services [specify] [] Home with outpatient PT [] [X] SNF for continued rehabilitation. Patient will benefit from prison facility placement for continued skilled physical therapy services in order to progress mobility level, strength, and balance in preparation for a safe discharge to home. [] Skilled Nursing Care [] [] SNF versus LTC based on ability to participate and progress [] TREATMENT CODE/TIME: Held treatment in the morning. [id number] x 21 minutes beginning at 16:40 PM.
[2021-10-22] MEDS: POTASSIUM CHLORIDE 20 MEQ/100 ML BAG 50 MEQ IVPB (16:51)
[2021-10-22 22:08] LABS: Bilirubin Negative (Negative); Blood Moderate (Negative); Clarity Clear (Clear); Glucose Negative (Negative); Ketones Trace mg/dL (Negative); Leukocyte Esterase Trace (Negative); Nitrite Negative (Negative); Specific Gravity 1.015 (1.005-1.025); Urobilinogen 0.2 EU/dL (Up TO 0.2)
[2021-10-22] MEDS: Albuterol HFA 8 GM 60 PUFF INH IH (22:10)
[2021-10-22] MEDS: Melatonin 3 MG TAB 9 MG PO (22:10)
[2021-10-22] MEDS: Potassium Chloride 20 MEQ TABCR PO (22:11)
[2021-10-22 22:16] LABS: Bacteria Negative HPF (Negative); C & S Indicated? No; Crystals Negative HPF (Negative); Epithelial Cells Negative HPF (Negative); Mucus Negative (Negative); Other Cells Few Transitional (Negative); WBC 0-2 HPF (0-5)
[2021-10-22 22:55] LABS: CEA 1.8 ng/mL (See Note)
--- NOTE | 2021-10-23 00:12 | PGE_ITS ---
Date of Service Date of service: 10/22/21 Time of Service: 15:30 Assessment and Plan Assessment and plan (1) Lower GI bleeding: Status: Acute Assessment and plan: lower GI bleeding from cecal mass. Hb today is slightly lower at 8.4 gm ( was 9.0 gm yesterday but has slowly been declining over last few days; was 10.6 gm on admission on 10/19 but was 11.7 gm last week after being transfused up from 7.[address] Blackwell ordered a unit of PRBC to be given today. Patient also had iron sucrose given. I have arranged for her to be transferred to [facility] when a bed becomes available which willl not be today but hopefully in the next 24 to 48hr. She will be going on Dr. Tahir Mary's service on the colorectal surgical service. (2) Mass of cecum: Status: Acute Assessment and plan: awaiting bx which were sent stat and will be processed through [facility] (3) Diarrhea: Status: Acute Assessment and plan: Initially thought to be d/t the Augmentin she was put on last week for her pneumonia but now probably is d/t her cecal mass. C. diff has been ruled out. (4) Myasthenia gravis: Status: Chronic Assessment and plan: Patient missed her plasmapherisis for today. This will have to be rescheduled for later this week but probably can be done upon transfer to [facility]. (5) Atrial fibrillation: Status: Chronic Assessment and plan: Paroxysmal, currently in SR. No longer on anticoagulation due to anemia, which we now know is heme +. Would hold off on resumption of anticoagulation given above. She is not currently on medications for rate control. Qualifiers: Atrial fibrillation type: paroxysmal Qualified Code(s): I48.0 - Par oxysmal atrial fibrillation (6) Ambulatory dysfunction: Status: Acute Assessment and plan: Consulted PT/OT. Patient certainly will need SNF for recovery from her colon surgery. (7) Decubitus ulcer of sacral area: Status: Acute Assessment and plan: Wound care consult. Per Dr. Blackwell, she cleaned up the wound while patient was down for her c-scope. (8) DVT prophylaxis: Status: Acute Assessment and plan: SCDs. Hold chemical DVT ppx in setting of Heme + stools. (9) Discharge planning issues: Status: Acute Assessment and plan: Full code Will need subacute rehab placement on discharge. Care management to consider location of this as the patient is to get plasmapharesis at [facility] on weekly basis. Subjective Subjective Interval history since last seen: Patient seen while patient's son was present. I went over Dr. Blackwell's findings of mass in the patient's cecum. I explained to them that this most likely is a colon adenocarcinoma. The patient indicated to me that she wishes to proceed w/ surgery. 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 She and her son are agreeble to this. I then made calls to [facility] transfer center. While they are only taking emergent cases right now, her case is deemed urgent although not emergent. She has had ongoing bleeding and therefore can not defer her surgery to an outpatient status. She is no obstructing and therefore does not need emergency surgery. I spoke w/ Dr. Tahir Mary, colorectal surgeon at [facility]. After reviewing her case he deemed her appropriate for transfer to [facility]. The patient will be listed for transfer when a bed becomes available. Exam Narrative Exam Narrative: Elderly female who appears frail, she is alert and oriented and in no discomfort Lungs: bilateral rales Heart: irregular rhythm but controlled rate Abdomen: soft, nontender, nondistended Extremities: no peripheral edema Objective Last Vital Signs Temp 36.5 C 10/22/21 22:51 Pulse 90 10/22/21 22:51 Resp 18 10/22/21 22:51 BP 152/70 H 10/22/21 22:51 Pulse Ox 91 L 10/22/21 22:51 Laboratory Results - last 24 hr 10/22/21 10/22/21 10/22/21 06:45 06:45 10:12 WBC 7.08 RBC 2.73 L Hgb 8.4 L Hct 27.0 L MCV 98.9 H MCH 30.8 MCHC 31.1 L RDW 18.2 H Plt Count 108 L MPV 10.1 Immature Gran % 0.6 Neutrophils % 90.0 Lymphocytes % 5.2 Monocytes % 3.7 Eosinophils % 0.4 Basophils % 0.1 Nucleated RBC % 0 Absolute Neutrophils 6.37 Absolute Lymphocytes 0.37 L Absolute Monocytes 0.26 Absolute Eosinophils 0.03 Absolute Basophils 0.01 Sodium 143 Potassium 3.3 L Chloride 107 Carbon Dioxide 28.5 Anion Gap 7.5 BUN 17 Creatinine 0.8 Estimated GFR/1.73 m2 >= 60.00 Glucose 73 L Calcium 8.0 L Urine Color Urine Clarity Urine pH Ur Specific [place] Urine Protein Urine Ketones Urine Blood Urine Nitrite Urine Bilirubin Urine Urobilinogen Ur Leukocyte Esterase Urine RBC Urine WBC Ur Epithelial Cells Urine Crystals Urine Bacteria Urine Mucus Urine Other Ur Culture Indicated? Urine Glucose Patient ABO/Rh O Negative Antibody Screen NEGATIVE Crossmatch See Detail 10/22/21 22:00 WBC RBC Hgb Hct MCV MCH MCHC RDW Plt Count MPV Immature Gran % Neutrophils % Lymphocytes % Monocytes % Eosinophils % Basophils % Nucleated RBC % Absolute Neutrophils Absolute Lymphocytes Absolute Monocytes Absolute Eosinophils Absolute Basophils Sodium Potassium Chloride Carbon Dioxide Anion Gap BUN Creatinine Estimated GFR/1.73 m2 Glucose Calcium Urine Color Yellow Urine Clarity Clear Urine pH 6.0 Ur Specific [place] 1.015 Urine Protein Negative Urine Ketones Trace H Urine Blood Moderate H Urine Nitrite Negative Urine Bilirubin Negative Urine Urobilinogen 0.2 Ur Leukocyte Esterase Trace H Urine RBC 5-10 H Urine WBC 0-2 Ur Epithelial Cells Negative Urine Crystals Negative Urine Bacteria Negative Urine Mucus Negative Urine Other Few Transitional Ur Culture Indicated? No Urine Glucose Negative Patient ABO/Rh Antibody Screen Crossmatch
[2021-10-23] MEDS: Normal Saline Flush 10 ML SYR IVP ×2 (00:37→08:13)
[2021-10-23 07:05] LABS: Abs Immature Grans 0.05 10^3/uL (0.0-0.06); Absolute Basophil Count 0.01 10^3/uL (0.0-0.2); Absolute Eosinophil Count 0.02 10^3/uL (0.0-0.7); Absolute Lymphocyte Count 0.29 10^3/uL (1.2-3.4); Absolute Monocyte Count 0.24 10^3/uL (0.1-0.8); Absolute Neutrophil Count 6.06 10^3/uL (1.2-6.7); Basophils % 0.1; Eosinophils % 0.3; HCT 33.2 % (36.0-46.0); HGB 10.3 g/dL (11.2-15.7); Immature Grans % 0.7; Lymphocytes % 4.3; MCV 96.8 fL (80-95); MPV 10.8 fL (8.0-11.0); Monocytes % 3.6; Nucleated RBC 0 %; Platelet Count 115 10^3/uL (130-400); RBC 3.43 10^6/uL (3.93-5.22); RDW 17.6 % (11.7-14.6); RDW-SD 62.3 fL; WBC 6.67 10^3/uL (4.4-10.8)
[2021-10-23 07:17] VITALS: BP 141/76; PULSE 76; RESP 18; TEMP 36.6; O2SAT 92
[2021-10-23 07:22] VITALS: BP 134/70; PULSE 80; RESP 16; TEMP 36.5; O2SAT 93
[2021-10-23 07:46] LABS: Anion Gap 5.1 mmol/L (3-11); BUN 19 mg/dL (7-18); CO2 27.9 mmol/L (21.0-32.0); CREATININE 0.7 mg/dL (0.55-1.02); Calcium 8.1 mg/dL (8.5-10.1); Chloride 108 mmol/L (98-107); Glucose 74 mg/dL (74-106); Potassium 3.7 mmol/L (3.5-5.1); Sodium 141 mmol/L (136-145)
[2021-10-23] MEDS: Multivitamin TAB 1 TAB PO (08:11)
[2021-10-23] MEDS: Folic Acid 1 MG TAB PO (08:11)
[2021-10-23] MEDS: Potassium Chloride 20 MEQ TABCR PO (08:11)
[2021-10-23] MEDS: predniSONE 20 MG TAB PO (08:11)
[2021-10-23] MEDS: Pantoprazole 40 MG TABCR PO (08:11)
[2021-10-23] MEDS: Gabapentin 300 MG CAP 600 MG PO (08:11)
[2021-10-23] MEDS: Lactobacillus Acidophilus CAP 1 CAP PO ×2 (08:12→13:48)
[2021-10-23] MEDS: Ferrous Sulfate 325 MG TAB PO (08:12)
[2021-10-23] MEDS: Methadone 5 MG TAB PO (08:12)
[2021-10-23] MEDS: Protein Nutritional Supplement 16 GM 1 OUNCE PACKET PO ×2 (08:13→13:48)
[2021-10-23] MEDS: Psyllium PKT 1 EACH PO (08:13)
[2021-10-23] MEDS: Lidocaine 5% Patch 1 PATCH TP (08:26)
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
--- NOTE | 2021-10-23 09:50 | OTIE_ITS ---
Occupational Therapy Notes Inpatient Occupational Therapy Evaluation Date: 10/23/21 Referring Doctor: Shreya Parker MD OT Orders: Non-Urgent- Limited Ability Precautions: Fall, standard, Full PATIENT PROFILE/ADMITTING DIAGNOSIS: Pt is an 86 year old female who was admitted through the ED for the following dx of mass of cecum, lower GI bleed, decubitus ulcer, UTI, GI bleed, descending aortic aneurysm, pneumonia, COPD, weakness. 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) Hx of deep venous thrombosis (Resolved) Lumbago (Resolved) Macrocytic anemia (Resolved) Malnutrition (Resolved) Myasthenia gravis (Chronic) Osteoporosis (Chronic) Peripheral neuropathic pain (Inactive) Post herpetic neuralgia (Resolved) Pulmonary arterial hypertension (Acute) PA pressure 35-40 mm Hg Sacral decubitus ulcer, stage IV (Inactive) Surgical History Abdominal fistula (Resolved 08/17/18) repair by Dr Elizalde AV fistula (Inactive) RUE Gastrostomy complication (Resolved 08/17/18) gastric enteric fistula repair by Dr Elizalde Gastrostomy infection (Resolved 08/10/18) Dr Elizalde, excised tissue at old g-tube site and closed g-tube tract surgically. Gastrostomy Tube Placement (Resolved) H/O wisdom tooth extraction (Acute) S/P appendectomy (Acute) Social History/Home Situation: Pt reports that she lives in [place] with her son and his family. She has no stairs in the home that she needs to use and a ramp to enter. Pt reports that she was receiving OT from home health in the past. And that she has a step in tub with removable shower head. PTs baseline (I) in ADLs per pt reports is as follows: Dressing (I) both sitting in chair and standing with FWW, family (A) as needed Eating (I), has (A) with cooking meals Grooming (I) sitting in chair Toileting (I) with use of grab bars Bathing (I) in step in tub with removable shower head while sitting in shower chair, family (A) as needed. Medications (I) Functional Mobility with FWW RCT/family for community mobility Bi-weekly trips to [facility] for plasma aphasis tx via (R) UE fistula per pts EMR. Equipment owned/DME: FWW, Grab bars, shower chair, removable shower head. SUBJECTIVE: Pt was sitting in chair when OT arrived.She reports that she was recently dx with cancer yesterday and is unsure what the next plan of care is for her but states that she would like to go to SNF with [facility] goal to return home. OBJECTIVE: General Observation: Pleasant and fatigued, IV in (L) UE Mental Status: A&O x3 ROM: RUE Flexion limited 100*, elbow WFL, (R) MF TF taped to RF to decreased pain L UE Flexion limited to 80* STRENGTH: RUE 3+/5 throughout globally LUE 3+/5 throughout globally FUNCTIONAL MOBILITY/ADLS: Dressing- max (A) don and doffing (B) socks, max (A) shirt and max (A) pants Bathing Pt denies as she reports that she is too fatigued. She states that she cannot do this on her own at this time. BALANCE: Static sitting Good Dynamic sitting Good SPECIAL TESTS: Daily Activity Limitations Standardized Measure [facility] AM -PAC ?6 clicks? Daily Activity Inpatient Short Form: Raw score: 13 Standardized score: 32.03 CMS score: 63.03% INFORMED CONSENT/EDUCATION: Pt instructed in purpose of OT Consult and plan of care. ASSESSMENT: Patient is a 86 year-old female referred to occupational therapy services with diagnosis of mass of cecum, lower GI bleed, decubitus ulcer, UTI, GI bleed, descending aortic aneurysm, pneumonia, COPD, weakness. Patient states that she is far from baseline at this time. She requires mod-max (A) for her ADLs and is fatigued very easily. Functionally she is stating that she would like to attend SNF and get further care for her cancer. Patient is assessed as a Low 10483 complexity based on the following: History: See PMHX Examination: See functional limitations noted above Presentation: Evolving Decision Making: AMPAC score 13 GOALS 1. Sitting in chair min (A) UE dressing 2. Sitting in chair min (A) bathing routines PLAN OF CARE/TREATMENT PLAN: 1x/day, 5 days/ week x 1week Initiate Occupational Therapy Services for bathing, dressing, grooming, toileting, eating, transfer training. DISCHARGE RECOMMENDATIONS SNF for progression of functional activity tolerance, increased functional mobility required for ADLs and increased functional (I) in ADL performance. TREATMENT TIME/MINUTES/CODES 29898, 20 minutes (09:30) Angela Warner OTR/[facility]
--- NOTE | 2021-10-23 11:18 | PGE_ITS ---
Date of Service Date of service: 10/23/21 Time of Service: 11:19 Assessment and Plan Assessment and plan (1) Mass of cecum: Status: Acute Assessment and plan: awaiting bx which were sent stat and will be processed through [facility]. Patient has been accepted for transfer to the [facility] to the service of Dr. Tahir Mary pending bed availability. 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 (2) Lower GI bleeding: Status: Acute Assessment and plan: Lower GI bleeding due to cecal mass. This has been causing an iron deficiency anemia. Because of her ongoing diarrhea have stopped her oral iron supplementation. Dr. Blackwell gave her venofer 400 mg x 1 dose on October 22, 2021.She seems to be responding to this her hemoglobin is up to 10.3 g. (3) Diarrhea: Status: Acute Assessment and plan: Initially thought to be d/t the Augmentin she was put on last week for her pneumonia but now probably is d/t her cecal mass. C. diff has been ruled out. Still having liquid green stool. Bacterial pathogens have been negative. Continue to treat her with Questran and Metamucil to try to thicken up her stools. Continue with probiotics. (4) Myasthenia gravis: Status: Chronic Assessment and plan: Patient missed her plasmapherisis for today. This will have to be rescheduled for later this week but probably can be done upon transfer to [facility]. (5) Atrial fibrillation: Status: Chronic Assessment and plan: Paroxysmal, currently in SR. No longer on anticoagulation due to anemia, which we now know is heme +. Would hold off on resumption of anticoagulation given above. She is not currently on medications for rate control. Qualifiers: Atrial fibrillation type: paroxysmal Qualified Code(s): I48.0 - Paroxysmal atrial fibrillation (6) Ambulatory dysfunction: Status: Acute Assessment and plan: Consulted PT/OT. Patient certainly will need SNF for recovery from her colon surgery. (7) Decubitus ulcer of sacral area: Status: Acute Assessment and plan: Wound care consult. Per Dr. Blackwell, she cleaned up the wound while patient was down for her c-scope. I have asked nursing to page me so I can look at her wound when they do her dressing changes. Patient pre viously been under the care of the wound care center in [facility] and had been discharged from their services because of wound allegedly was healed up. Patient states this was a couple months ago. (8) DVT prophylaxis: Status: Acute Assessment and plan: SCDs. Hold chemical DVT ppx in setting of Heme + stools. (9) Discharge planning issues: Status: Acute Assessment and plan: Full code Will need subacute rehab placement on discharge. Care management to consider location of this as the patient is to get plasmapharesis at [facility] on weekly basis. Subjective Subjective Interval history since last seen: Patient states she is doing okay she has no acute complaints. Denies any dyspnea nausea or vomiting or abdominal pain. Still having some loose stools. BMP is unremarkable this morning. Potassium is up to 3.7. She is currently on potassium supplementation. CBC shows improvement in her H&H. She is up to hemoglobin of 10.3 g. Normal white count. She has a chronically low platelet count 115,000. There is no leftward shift in her white cell count. Stool for bacterial pathogens was negative. Stool for C. difficile was negative. We are waiting on her pathology specimens from her colon biopsy from yesterday. Patient has been accepted to the [facility] to the service of Dr. Tahir Mary. Exam Narrative Exam Narrative: Kyphotic thin elderly white female sitting up in her chair. She is dressed and was talking to the bun machine operator when I entered the room. She is alert and oriented person place time circumstance Lungs with some fine bibasilar rales no rhonchi or wheezing. Upper lung rocha are clear. Heart is irregularly irregular at a controlled rate Abdomen is nondistended soft and nontender with active bowel sounds Lower extremities without peripheral edema. She has chronic venous varicosities and some bruising. Sacral decubitus wound was not examined yet. I have asked nursing to call me so that I can come into the room and look at it during her dressing change. I examined the patient's sacral decubitus with a second shift nurse who took over for the patient's primary nurse. We took down the patient's Mepilex and examined the wound together. See the nurses notes regarding details regarding the dimensions of the wound. This is an irregular heart shaped wound over the sacrum that appears to be at least a stage III presacral ulcer. There is no purulent drainage. There is blanching of the skin around the wound. I could not see a bone and we did find 1 area with her is a small opening it look like a tunnel that did not go very far we probed and could not see any bone nor any pus. Objective Last Vital Signs Temp 36.5 C 10/23/21 07:22 Pulse 80 10/23/21 07:22 Resp 16 10/23/21 07:22 BP 134/70 10/23/21 07:22 Pulse Ox 93 10/23/21 07:22 Laboratory Results - last 24 hr 10/22/21 10/22/21 10/23/21 10:12 22:00 06:30 WBC RBC Hgb Hct MCV MCH MCHC RDW Plt Count MPV Immature Gran % Neutrophils % Lymphocytes % Monocytes % Eosinophils % Basophils % Nucleated RBC % Absolute Neutrophils Absolute Lymphocytes Absolute Monocytes Absolute Eosinophils Absolute Basophils Sodium 141 Potassium 3.7 Chloride 108 H Carbon Dioxide 27.9 Anion Gap 5.1 BUN 19 H Creatinine 0.7 Estimated GFR/1.73 m2 >= 60.00 Glucose 74 Calcium 8.1 L Urine Color Yellow Urine Clarity Clear Urine pH 6.0 Ur Specific [place] 1.015 Urine Protein Negative Urine Ketones Trace H Urine Blood Moderate H Urine Nitrite Negative Urine Bilirubin Negative Urine Urobilinogen 0.2 Ur Leukocyte Esterase Trace H Urine RBC 5-10 H Urine WBC 0-2 Ur Epithelial Cells Negative Urine Crystals Negative Urine Bacteria Negative Urine Mucus Negative Urine Other Few Transitional Ur Culture Indicated? No Urine Glucose Negative Patient ABO/Rh O Negative Antibody Screen NEGATIVE Crossmatch See Detail 10/23/21 06:30 WBC 6.67 RBC 3.43 L Hgb 10.3 L Hct 33.2 L D MCV 96.8 H MCH 30.0 MCHC 31.0 L RDW 17.6 H Plt Count 115 L MPV 10.8 Immature Gran % 0.7 Neutrophils % 91.0 Lymphocytes % 4.3 Monocytes % 3.6 Eosinophils % 0.3 Basophils % 0.1 Nucleated RBC % 0 Absolute Neutrophils 6.06 Absolute Lymphocytes 0.29 L Absolute Monocytes 0.24 Absolute Eosinophils 0.02 Absolute Basophils 0.01 Sodium Potassium Chloride Carbon Dioxide Anion Gap BUN Creatinine Estimated GFR/1.73 m2 Glucose Calcium Urine Color Urine Clarity Urine pH Ur Specific [place] Urine Protein Urine Ketones Urine Blood Urine Nitrite Urine Bilirubin Urine Urobilinogen Ur Leukocyte Esterase Urine RBC Urine WBC Ur Epithelial Cells Urine Crystals Urine Bacteria Urine Mucus Urine Other Ur Culture Indicated? Urine Glucose Patient ABO/Rh Antibody Screen Crossmatch
[2021-10-23] MEDS: Cholestyramine/Aspartame PKT 1 EACH PO (11:36)
--- NOTE | 2021-10-23 13:47 | W.NUTRFU ---
Date of service: 10/23/21 Time of Service: 13:47 Nutrition Note NOTE: Tanja states no dinner last night (documentation indicates she was sleeping) and nurses put something together for her afterward. This is very much appreciated. Diet order for heart healthy soft & bite size/thin since PO intake resumed at breakfast today. She did not remember ordering lunch today and was interested in cream soup along with CIB frappe we discussed yesterday to start BID. She was disappointed of being denied vera this morning due to her diet order and states she can manage with normal textured foods. She verbalized that she does fill up quickly and ?I have never been this thin before?. Her weight has been stable at 49-50kg x 4days, however she is down about 10kg from her usual weight about a year ago. In light of this and considering her age and number of comorbidities, I would suggest diet liberalization to regular/normal diet with small portions to increase the variety of higher calorie/protein choices she is able to choose from. Will continue to provide cream soup choice at lunches and CIB frappes BID on lunch and dinner trays. Stepan Haas NDTR ? [employer] Supervisor Time Spent in Nutritional Counseling and Treatment: 15 minutes
--- NOTE | 2021-10-23 15:09 | PHACLINREV_ITS ---
Pharmacy Admission Review - Admission Clinical Review (Last Updated 10/20/21 @ 12:25 by Gerardo Kinsey CRNA) Mass of cecum (Acute) Lower GI bleeding (Acute) Decubitus ulcer of sacral area (Acute) Ambulatory dysfunction (Acute) Diarrhea (Acute) Guaiac positive stools (Acute) Pneumonia (Acute) Thrush, oral (Acute) Discharge planning issues (Acute) Aspiration pneumonitis (Acute) Eating disorder (Acute) DVT prophylaxis (Acute) FAHAD Inhibitors Allergy (Unverified 10/16/21 18:32) Beta-Blockers (Beta-Adrenergic Bloc Allergy (Unverified 10/16/21 18:32) Sulfa (Sulfonamide Antibiotics) Allergy (Verified 10/16/21 18:32) Hives sulfamethoxazole [From Bactrim] Allergy (Unverified 10/16/21 18:32) trimethoprim [From Bactrim] Allergy (Unverified 10/16/21 18:32) Resuscitation Status Full Code Height 5 ft 8 in Weight 50.1 kg - Renal Dosing Renal Dosing: BUN 19 mg/dL (7-18) H 10/23/21 06:30 Creatinine 0.7 mg/dL (0.55-1.02) 10/23/21 06:30 Medications needing adjustments: Intervened (SCr: 0.7, CrCl~41.40mL/min.) List of meds needing interventions: Famotidine frequency adjusted to 20mg daily. - Anticoagulation Anticoagulation: Hgb 10.3 g/dL (11.2-15.7) L 10/23/21 06:30 Hct 33.2 % (36.0-46.0) L D 10/23/21 06:30 Plt Count 115 10^3/uL (130-400) L 10/23/21 06:30 INR 1.2 (0.9-1.1) H 10/16/21 16:00 Creatinine 0.7 mg/dL (0.55-1.02) 10/23/21 06:30 DVT Prophylaxis: N/A (Patient had lower GI bleed.) Therapeutic Anticoagulation: N/A (Patient had lower GI bleed.) - Opiate Usage Evaluate Pain Scale/Pains Meds: Reviewed (Methadone BID scheduled, Hydromorphone 2mg Q4h PRN) Scheduled Bowel Reg ordered if on Opiates?: No (Patient has diarrhea) - Relevant Labs Sodium 141 mmol/L (136-145) 10/23/21 06:30 Potassium 3.7 mmol/L (3.5-5.1) 10/23/21 06:30 Chloride 108 mmol/L (98-107) H 10/23/21 06:30 Phosphorus 3.9 mg/dL (2.6-4.7) 10/17/21 05:25 Magnesium 2.0 mg/dL (1.8-2.4) 10/17/21 05:25 C-Reactive Protein 3.41 mg/dL (0.0-0.3) H 10/20/21 06:30 Electrolytes, C-Reactive P, ESR: Reviewed - DM Control DM Control: Glucose 74 mg/dL (74-106) 10/23/21 06:30 Insulin Dosing: N/A (Glucose trending low this admission.) - Heart Failure/GA EF%, FAHAD's, B-Blockers, Diuretics: N/A - BP Control BP Control: Blood Pressure 134/70 Blood Pressure 141/76 If elevated: Reviewed List meds needing interventions: Blood pressure up and down this admission. No BP meds ordered. - Qtc Review If Elevated: N/A (QTc 444 on admission.) - IV to PO Switch IV Medications: Reviewed - Home Meds Relevent Home Meds Not ordered & why?: Furosemide 40mg every morning not ordere d. - Current meds Current Medication Order Review: Intervened (Discontinued duplicate probiotic.) - Comments Comments/Follow Ups: Continue to monitor vitals, labs and for medication changes.
--- NOTE | 2021-10-23 15:17 | PT.INTREAT ---
Date of service: 10/23/21 Time of Service: 10:10 PT Notes Visit Reasons: Suspected C.Diff,SIRS,Ambulatory dysfunction Inpatient Physical Therapy Treatment Note [facility] Date: 10/23/2021 PRECAUTIONS: Fall, Activity as tolerated SUBJECTIVE: Tanja states that she is feeling a little better today, although recognizes that she is still not able to return home safely at this time and understands that she will likely need short-term rehab. She is pleasant and agreeable to participating in PT. OBJECTIVE: Tanja refuses afternoon PT session due to back pain from sleeping in a forward flexed position in her chair. PAIN: Patient c/o back pain in afternoon. BED MOBILITY/TRANSFERS Sit-supine: I with HOB flat Sit-stand: SBA Stand-sit: SBA Chair-bed: SBA GAIT Assistive Device: FWW Weight bearing: Full Assist: SBA Distance: 15' x3 in a.m.; 5' in p.m. Deviation: Increased fatigue, c/o increased neck pain with use of soft collar in a.m. THEREX: Patient was instructed in a resisted UE strengthening program, completed in a seated position, as per flow sheet. She utilizes red Theraband with exercise completion. ASSESSMENT: Patient tolerated session with complaint of increased fatigue with gait training and with ther ex completion. She would benefit from continued gait training and global strengthening for improved activity tolerance. PLAN: Continue with global strengthening and general conditioning for improved activity tolerance and mobility. TREATMENT CODE/TIME: Session 1: 29 minutes; [id number], [id number] (10:10) Session 2: 10 minutes; [id number] (14:50)
[2021-10-23] MEDS: Albuterol HFA 8 GM 60 PUFF INH IH (15:45)
[2021-10-23 15:51] VITALS: BP 109/64; PULSE 79; RESP 16; TEMP 36.7; O2SAT 92
--- NOTE | 2021-10-23 17:00 | CHAPLAIN ---
Tanja said she wasn't feeling that well today, but thought she had done well with PT, and that Magalie, PT, had been very encouraging and helpful. Dr. Knapp stopped in to let Tanja know that she has been accepted to [facility] for surgery for probably spot of cancer that was found during a colonoscopy yesterday. Although she's been accepted, it may be a while before a bed is available. Tanja is a [employer] and attends the [place] [employer], mostly by Zoom lately. She will let the meeting know about her health issues when she decides to.
--- NOTE | 2021-10-23 17:26 | W.PM.DS.N ---
Date of service: 10/23/21 Time of Service: 17:26 DS: Diagnosis Discharge Diagnosis (1) Mass of cecum: Status: Acute Asessment and Plan: 3 cm cecal mass found on colonoscopy performed 10/22/2021. Biopsies are pending at this time. CT scan of the chest from most recent admission showed no pulmonary metastasis and no mediastinal or hilar adenopathy. CT scan of the abdomen pelvis showed no abdominal or pelvic metastasis. (2) Lower GI bleeding: Status: Acute Asessment and Plan: EGD showed no pathology. Colonoscopy demonstrated 3 cm flat cecal mass. See colonoscopy report. Biopsies obtained at this time. Patient presented with a hemoglobin of 10.6 g on admission and dropped down to as low as 8.4 g. She received 1 unit packed red cells and came up to 10.3 g at the time of discharge. She was also treated with parenteral iron therapy. (3) Diarrhea: Status: Acute Asessment and Plan: Stool studies for bacterial pathogens including C. difficile were all negative. Diarrhea is suspected be secondary to colon cancer. (4) Myasthenia gravis: Status: Chronic (5) Atrial fibrillation: Status: Chronic Asessment and Plan: Patient is no longer on any anticoagulation. Anticoagulants were stopped during her previous admission From 10/10/2021 through 10/15/2021 due to GI bleeding. 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 This has been going on for years and has been followed through the wound care center at [facility] in [facility]. During her current admission there is no sign of infection. Local care has been performed with Mepilex dressings. Discharge Plan Disposition Patient Disposition: [facility] ([facility]) Condition: Improving Discharge Details Reason For Visit: Suspected C.Diff,SIRS,Ambulatory dysfunction Admit Date/Time: 10/16/21 18:41 Admit Provider: Shreya Parker Attending Provider: Shreya Parker Primary Care Provider: Steph,Charlotte Hungerford Hospital Course Hospital Course: 86-year-old female with past medical history significant for myasthenia gravis for which she receives plasmapheresis on a weekly basis at [facility] in [facility] and also receives weekly infusions Soliris. She is under the care of Dr. Dirk Patel, neurology at [facility]. 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 She has atrial fibrillation for which she been on anticoagulation until her most recent hospitalization from from 10/11/2021 through 10/15/2021 when she was admitted for exertional dyspnea and was found to be anemic with a hemoglobin of 8 g and was found to be dyspneic and wheezing and hypoxemic. She was treated for community-acquired pneumonia with ceftriaxone and doxycycline and then discharged home on 7-day course of Augmentin. During that hospitalization she dropped down to a hemoglobin of 7 g before she was transfused 2 units of packed red cells and was discharged home with hemoglobin 11.2 g. Reportedly patient had no evidence of GI bleeding. Nevertheless she represented to the hospital with rectal bleeding and was found to have a hemoglobin hemoglobin 10.6 g. Because the blood appeared to be dark it was presumed to be upper GI bleeding. She was placed on Protonix and Carafate empirically for possible peptic ulcer. Surgery was consulted Dr. Florencia Quispe did the surgical consult and performed an EGD on 10/21/2021. No source of upper GI bleeding was found. However because the patient continued to have diarrhea with Hemoccult positive stools patient was prepped for colonoscopy which was performed by Dr. Christa Blackwell on 10/22/2021. Colonoscopy revealed sigmoid diverticuli with no evidence of diverticular bleeding. However at the cecum she was found to have a friable 3 cm flat mass for which multiple biopsies were obtained. Biopsies are pending at this time. During her hospital work-up her diarrhea was worked up and included C. difficile studies that were negative as well as bacterial pathogens all negative. Diarrhea was treated with Metamucil and Questran. Patient was given a transfusion of packed red cells on 10/22/2021 because of ongoing blood loss and gradually declining hemoglobin and hematocrit. Her admission hemoglobin was 10.6 g hematocrit 34% and this dropped to as low as 8.4 and 27% before her transfusion at which point her hemoglobin came up to 10.3 g and her hematocrit is 33%. Patient was also found to have a mild thrombocytopenia with platelet counts of 115,000 which remained stable. Patient never had a leukocytosis and never had a fever. Nasal swab for SARS-CoV-2 was obtained on admission and was negative. This was from 10/20/2021. Staging imaging studies were performed including a chest CT scan which had been done on her most recent admission as part of her work-up of her dyspnea. That was on 10/10/2021 and was performed with contrast to rule out PE. 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 She has chronic thoracic compression fractures but she had no hilar or mediastinal adenopathy and no pulmonary nodules. 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 During her current admission chest x-ray was obtained as well as an abdominal and pelvic CT scan. Chest x-ray showed no acute pulmonary process. Heart was mildly enlarged. She had no consolidation no pleural effusion. Abdominal pelvic CT demonstrated soft tissue in the inferior aspect of the cecum suspicious for mass. She had no evidence of abdominal or pelvic metastatic disease. Soft tissue irregularity overlying the sacrum and coccyx was seen consistent with a decubitus ulcer. Dr. Christa Blackwell and Dr. Florencia Quispe discussed the patient's case with anesthesia and it was felt that the patient's comorbidities and age precluded surgery at this institution. Patient and her family including her son requested transfer to [facility] for further evaluation. [facility] seem to be the logical choice as the patient is already established with her neurologist Dr. Dirk Patel and she receives plasma exchange at the [facility] for her myasthenia gravis. On 10/22/2021 I called the transfer center at the [facility] and spoke with Dr. Tahir Mary from colorectal surgery and after he reviewed the case with me he agreed that she would be appropriate for transfer to [facility] for surgical resection of her cecal mass. Patient remains a full code as per her request and wants to proceed with operative treatment of her colon cancer. At present time the tissue biopsy results are still pending but were sent to [facility] pathology and should be available for her attendings to review upon transfer to the [facility]. All radiologic studies from her current admission were sent to [facility] for their review. Patient has remained in stable condition with normal vital signs and she remains afebrile. She will be transferred this evening by ambulance to the [facility] to the care of Dr. Tahir Mary. It is expected that consultations will be obtained with her neurologist Dr. Dirk Patel to manage her myasthenia gravis. Is also recommended that cardiology be consulted to evaluate her regarding her cardiomyopathy. Of note an echocardiogram was performed during her most recent admission from 10/11/2021. At that time she had normal left ventricular size and function with an EF of 55% with no wall motion abnormalities. She has normal right ventricular size and normal right ventricular systolic function. She has trace to mild aortic insufficiency and has mild to moderate tricuspid insufficiency with mild pulmonary hypertension with RVSP of 28 mm. She has a dilated ascending aorta of 3.38 cm. The study was of fair quality technically due to her body habitus and inability to position the patient. Home Meds and New Rx's Prescriptions: Continued sennosides [senna] 8.6 mg tablet 8.6 mg PO BID PRNRF: 0 multivitamin [Multiple Vitamins] Tablet 1 tab PO DAILY RF: 0 hydromorphone [Dilaudid] 2 MG tablet 2 mg PO Q4H PRN MDD 6 PRNRF: 0 melatonin 10 mg Tablet 10 mg PO HS RF: 0 ferrous sulfate 325 MG tablet 325 mg PO DAILY Qty: 0 RF: 0 acidophilus-pectin, citrus 25 million cell -100 mg Tablet 1 cap PO AC Qty: 0 RF: 0 furosemide [Lasix] 20 mg tablet 40 mg PO QAM RF: 0 lidocaine 5 % Adhesive Patch,Medicated 1 patch TOPICAL DAILY PRNRF: 0 folic acid 1 mg Tablet 1 mg PO DAILY RF: 0 gabapentin 300 MG capsule 600 mg PO BID RF: 0 ergocalciferol (vitamin D2) [Vitamin D2] 50,000 UNITS capsule 50,000 units PO .QOWEEK RF: 0 cyanocobalamin (vitamin B-12) 1,000 MCG/ML solution 1 ea IM .QMONTH RF: 0 bisacodyl 10 MG suppository 1 ea PA PRN PRNRF: 0 methadone [Dolophine] 5 MG tablet 5 mg PO BID RF: 0 acetaminophen [Tylenol] 325 mg Tablet 650 mg PO Q4H PRN PRNQty: 30 RF: 0 prednisone 10 MG tablet 20 mg PO DAILY RF: 0 albuterol sulfate [ProAir HFA] 90 mcg/actuation HFA aerosol inhaler 2 puff inhalation QID Qty: 6.7 RF: 0 Discontinued amoxicillin-pot clavulanate [Augmentin] 875-125 mg tablet 1 tab PO BID Qty: 6 RF: 0 No Action Soliris 300 mg/30 mL Solution 1,200 mg IV .EVERY OTHER WEEK RF: 0 Soliris 300 mg/30 mL Solution 600 mg IV .EVERY OTHER WEEK RF: 0 Discharge Instructions Instructions: Gastrointestinal Bleeding (DC), Colorectal Cancer (DC) Stand Alone Forms: Nursing Discharge Form Discharge Orders Discharge Orders: Discharge Order (Routine); Ordered 10/23/21 Ordered By: Flako Knapp DS: Summary Time Spent with Patient providing and/or coordinating discharge services: Greater than 30 minutes Status at Discharge Functional status at discharge: uses cane/walker Overall status at discharge: patient is not back to baseline Mental Status: mental status grossly normal Speech and Movement: speech and movement normal Mood: congruent mood Affect: normal affect Exam Narrative Exam Narrative: Kyphotic thin elderly white female sitting up in her chair. She is dressed and was talking to the pharmacy clerk when I entered the room. She is alert and oriented person place time circumstance Lungs with some fine bibasilar rales no rhonchi or wheezing. Upper lung rocha are clear. Heart is irregularly irregular at a controlled rate Abdomen is nondistended soft and nontender with active bowel sounds Lower extremities without peripheral edema. She has chronic venous varicosities and some bruising. Sacral decubitus wound was not examined yet. I have asked nursing to call me so that I can come into the room and look at it during her dressing change. I examined the patient's sacral decubitus with a second shift nurse who took over for the patient's primary nurse. We took down the patient's Mepilex and examined the wound together. See the nurses notes regarding details regarding the dimensions of the wound. This is an irregular heart shaped wound over the sacrum that appears to be at least a stage III presacral ulcer. There is no purulent drainage. There is blanching of the skin around the wound. I could not see a bone and we did find 1 area with her is a small opening it look like a tunnel that did not go very far we probed and could not see any bone nor any pus. Psych Mental Status: mental status grossly normal Speech and Movement: speech and movement normal Mood: congruent mood Affect: normal affect DS: Data Vitals/I&O Vitals and I&O: Vital Signs Temperature 36.7 C 10/23/21 15:51 Temperature Source Tympanic 10/23/21 15:51 Pulse 79 10/23/21 15:51 Pulse Rhythm Regular 10/23/21 08:30 Respiratory Rate 16 10/23/21 15:51 Respiratory Effort Non-Labored 10/23/21 08:30 Respiratory Depth Normal 10/23/21 08:30 Respiratory Pattern Normal 10/23/21 08:30 Blood Pressure 109/64 10/23/21 15:51 Blood Pressure Position Sitting 10/16/21 15:12 Pulse Oximetry 92 10/23/21 15:51 Respiratory End-tidal CO2 24 10/21/21 10:43 Oxygen Delivery Method Room Air 10/23/21 15:51 Oxygen Flow Rate 0 10/23/21 15:51 Pain Level 0 10/23/21 15:51 Comment 10/21/21 23:48 Intake & Output 10/22/21 10/23/21 10/23/21 23:59 11:59 23:59 Intake Total 322 / 1277.833 155.667 / 155.667 Output Total 700 / 900 Balance -378 / 377.833 155.667 / 155.667 Weight 50.1 kg Intake: IV 0 / 955.833 35.667 / 35.667 Oral 120 / 120 Blood Product 322 / 322 Rbc Leuko Reduced Unit 322 / 322 [id number] Output: Urine 700 / 900 Other: Urine Color Yellow Yellow Yellow Urine Appearance Cloudy Clear Clear Urine Odor Normal Stool Size Small Small Stool Characteristics Liquid Soft Green Liquid Brown Voiding Methods Bedside Commode Bedside Commode Bedside Commode Data Completed and Pending Labs on day of discharge: Labs from last 24 hours 10/23/21 10/23/21 10/22/21 06:30 06:30 22:00 WBC 6.67 RBC 3.43 L Hgb 10.3 L Hct 33.2 L D MCV 96.8 H MCH 30.0 MCHC 31.0 L RDW 17.6 H Plt Count 115 L MPV 10.8 Immature Gran % 0.7 Neutrophils % 91.0 Lymphocytes % 4.3 Monocytes % 3.6 Eosinophils % 0.3 Basophils % 0.1 Nucleated RBC % 0 Absolute Neutrophils 6.06 Absolute Lymphocytes 0.29 L Absolute Monocytes 0.24 Absolute Eosinophils 0.02 Absolute Basophils 0.01 Sodium 141 Potassium 3.7 Chloride 108 H Carbon Dioxide 27.9 Anion Gap 5.1 BUN 19 H Creatinine 0.7 Estimated GFR/1.73 m2 >= 60.00 Glucose 74 Calcium 8.1 L Carcinoembryonic Ag Urine Color Yellow Urine Clarity Clear Urine pH 6.0 Ur Specific [place] 1.015 Urine Protein Negative Urine Ketones Trace H Urine Blood Moderate H Urine Nitrite Negative Urine Bilirubin Negative Urine Urobilinogen 0.2 Ur Leukocyte Esterase Trace H Urine RBC 5-10 H Urine WBC 0-2 Ur Epithelial Cells Negative Urine Crystals Negative Urine Bacteria Negative Urine Mucus Negative Urine Other Few Transitional Ur Culture Indicated? No Urine Glucose Negative 10/22/21 06:45 WBC RBC Hgb Hct MCV MCH MCHC RDW Plt Count MPV Immature Gran % Neutrophils % Lymphocytes % Monocytes % Eosinophils % Basophils % Nucleated RBC % Absolute Neutrophils Absolute Lymphocytes Absolute Monocytes Absolute Eosinophils Absolute Basophils Sodium Potassium Chloride Carbon Dioxide Anion Gap BUN Creatinine Estimated GFR/1.73 m2 Glucose Calcium Carcinoembryonic Ag 1.8 Urine Color Urine Clarity Urine pH Ur Specific [place] Urine Protein Urine Ketones Urine Blood Urine Nitrite Urine Bilirubin Urine Urobilinogen Ur Leukocyte Esterase Urine RBC Urine WBC Ur Epithelial Cells Urine Crystals Urine Bacteria Urine Mucus Urine Other Ur Culture Indicated? Urine Glucose [facility] Active Problem List (Updated 10/23/21 @ 18:11 by Flako Knapp) Mass of cecum (Acute) Lower GI bleeding (Acute) Decubitus ulcer of sacral area (Chronic) Ambulatory dysfunction (Acute) Diarrhea (Acute) Guaiac positive stools (Acute) Palliative care patient (Acute) UTI (urinary tract infection) (Acute) Dependent edema (Acute) GI bleed (Chronic) Descending aortic aneurysm (Chronic) Pneumonia (Acute) COPD (chronic obstructive pulmonary disease) (Chronic) Weakness (Acute) Exertional dyspnea (Acute) Ileus, unspecified (Acute) Elevated troponin (Acute) Weakness (Acute) Thrush, oral (Acute) Atrial fibrillation (Chronic) Myasthenia gravis (Chronic) Multifocal pneumonia (Acute) Pseudomonas pneumonia (Acute) Aspiration pneumonitis (Acute) Eating disorder (Acute) Debility (Acute) Sepsis (Acute) Hypokalemia (Acute) Medical History (Updated 10/23/21 @ 18:11 by Flako Knapp) Aspiration pneumonia B12 deficiency Cardiomyopathy Echo 12/10/2018: EF 60-65%, up from 35% previously; does have diastolic dysfunction Chronic constipation Chronic insomnia Chronic pain on methadone therapy Compression fracture of spine Depression Dysphagia 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 Gastrostomy Tube Placement H/O wisdom tooth extraction S/P appendectomy Family History Father Heart disease Mother Cancer pancreatic Social History Smoking/Tobacco Use Status: Never Smoking risk assessment performed?: Yes Alcohol Intake: current Alcohol Intake frequency: a few times a week Alcohol type: hard liquor Drug use: Never Substance use type: does not use Do you feel safe at home: Yes Do you feel safe in your relationship?: Yes Additional Social history: live with son and his family
--- NOTE | 2021-10-23 18:20 | INDS_ITS ---
Date of service: 10/23/21 PT Notes Visit Reasons: Suspected C.Diff,SIRS,Ambulatory dysfunction Physical Therapy Inpatient Discharge Summary Date: 10/23/21 Dates of Service: 10/18/2021 through 10/23/2021 This is a clinical summary of care provided for the duration of dates listed above. No charge was made in the completion of this documentation. Referring Doctor: Shreya Parker MD PT Orders: PT CONSULT: Limited ability Precautions: Low endurance, needs frequent rest. Activity as tolerated. Soft cervical collar on when ambulating. Patient Profile/Admitting Diagnosis: Tanja is an 86-year-old female with myasthenia gravis status post plasmapheresis on 10/15/2021 and atrial fibrillation who returned to the ED after being discharged to home on 10/15/2021 due to increasing generalized weakness, inability to use walker, and persistent loose stools. Patient is diagnosed with follow-up positive stool, diarrhea, ambulatory dysfunction, and decubitus of sacral area. Active Problem List Palliative care patient (Acute) UTI (urinary tract infection) (Acute) Dependent edema (Acute) GI bleed (Chronic) Descending aortic aneurysm (Chronic) Pneumonia (Acute) COPD (chronic obstructive pulmonary disease) (Chronic) Weakness (Acute) Exertional dyspnea (Acute) Ileus, unspecified (Acute) Elevated troponin (Acute) Weakness (Acute) Thrush, oral (Acute) Discharge planning issues (Acute) Atrial fibrillation (Chronic) Myasthenia gravis (Chronic) Multifocal pneumonia (Acute) Pseudomonas pneumonia (Acute) Aspiration pneumonitis (Acute) Eating disorder (Acute) Debility (Acute) Sepsis (Acute) DVT prophylaxis (Acute) Hypokalemia (Acute) PMHX: Medical History Aspiration pneumonia B12 deficiency Cardiomyopathy Echo 12/10/2018: EF 60-65%, up from 35% previously; does have diastolic dysfunction Chronic constipation Chronic insomnia Chronic pain on methadone therapy Compression fracture of spine Depression Dysphagia 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 Gastrostomy Tube Placement H/O wisdom tooth extraction S/P appendectomy Social History/Home Situation: Patient lives with her son and [id number] in a private home with 3 steps to enter through the kitchen with a rail on 1 side. States that she is able to walk from her bedroom to the bathroom outside her room for about 30 feet using a 4WW. Equipment Owned/DME: 4WW Subjective: NT. See most recent MANAGER PHILOSOPHY notes. Objective: General Observation: NT. See most recent MANAGER PHILOSOPHY notes. Mental Status: NT. See most recent MANAGER PHILOSOPHY notes. Pain: NT. See most recent MANAGER PHILOSOPHY notes. ROM: Right Upper Extremity: Shoulder Flexion lacks the last last 25% of movement. Shoulder abduction lacks the last last 25% of movement. Elbow flexion WFL. Wrist flexion WFL. Functional opening and closing of hand WFL. Left Upper Extremity: Shoulder Flexion lacks the last last 25% of movement. Shoulder abduction lacks the last last 25% of movement. Elbow flexion WFL. Wrist flexion WFL. Functional opening and closing of hand WFL. Right Lower Extremity: Hip flexion WFL. Hip abduction WFL. Knee flexion WFL. Ankle dorsiflexion WFL. Ankle plantarflexion WFL. Left Lower Extremity: Hip flexion WFL. Hip abduction WFL. Knee flexion WFL. Ankle dorsiflexion WFL. Ankle plantarflexion WFL. Strength: Right Upper Extremity: Shoulder flexors 4/5. Shoulder abductors 4/5. Elbow flexors 4/5. Elbow extensors 4-/5. Kick Press Setter strong. Left Upper Extremity: Shoulder flexors 4/5. Shoulder abductors 4/5. Elbow flexors 4/5. Elbow extensors 4-/5. Kick Press Setter strong. Right Lower Extremity: Hip flexors 4-/5. Hip abductors 4/5. Knee flexors 4/5. Knee extensors 4-/5. Ankle dorsiflexors 3+/5. Ankle plantarflexors 4-/5. Left Lower Extremity: Hip flexors 4/5. Hip abductors 4/5. Knee flexors 4/5. Knee extensors 4/5. Ankle dorsiflexors 3+/5. Ankle plantarflexors 4-/5. Bed Mobility/Transfers: Sit to stand standby assist Stand to sit standby assist Bed to chair standby assist Chair to bed standby assist Gait: Instructed patient with level surface ambulation of up to 40 feet using front wheeled walker with full weightbearing requiring contact-guard assist with report of significant fatigue right after activity with increased trunk anteroflexion and cervical flexion and report of pain in the neck area subsided with rest and with placement of new cervical collar. Balance: Static Sitting: Fair Dynamic Sitting: Fair Static Standing: Fair Dynamic Standing: Fair Assessment: Tanja is an 86-year-old female with myasthenia gravis status post plasmapheresis on 10/15/2021 and atrial fibrillation who returned to the ED after being discharged to home on 10/15/2021 due to increasing generalized weakness, inability to use walker, and persistent loose stools. Patient is diagnosed with follow-up positive stool, diarrhea, ambulatory dysfunction, and decubitus of sacral area. Patient is at high risk for further loss of mobility, given her advanced age and extensive medical history, along with baseline mobility deficits. She currently demonstrates the following impairment level findings: 1. Dowagers hump with increasing cervical neck flexion and rotation 2. Decreased LE strength 3. Decreased activity tolerance 4. Impaired dynamic standing balance due to posture deficit Impairments are contributing to the following functional limitations: 1. Decline in bed mobility skills 2. Decline in transfer skills 3. Difficulty with ambulation without assistive device and physical assistance 4. Increased completion time for mobility ADL performance 5. Increased risk for falls 6. Difficulty with managing steps alone safely Goals: Goals X1 week 1. Supine-Sit independent NOT MET 2. Sit-Supine independent NOT MET 3. Sit-Stand independent NOT MET 4. Stand-Sit independent NOT MET 5. Bed-Chair independent NOT MET 6. Chair-Bed independent NOT MET 7. Independent gait on level surface with use of 4WW for at least 50 feet without report of pain nor dyspnea NOT MET 8. Independent stair negotiation while holding onto unilateral rail for at least 3 steps without report of pain nor dyspnea NOT MET 9. Good static and dynamic standing balance/tolerance NOT MET DISCHARGE RECOMMENDATIONS: [] Home with no services [] [] Home with services [specify] [] Home with outpatient PT [] [X] SNF for continued rehabilitation. Patient will benefit from a short-term rehab stay in order to regain premorbid independent mobility level of covering household distances of up to 50 feet using 4 wheeled walker [] [facility] [] [] SNF versus LTC based on ability to participate and progress [] TREATMENT CODE/TIME: CT Thank you for the opportunity to participate in the care of this patient. Anamika Miner PT, DPT, CLT [facility] [place], [place]
--- NOTE | 2021-10-24 09:25 | OTDS_ITS ---
Date of service: 10/24/21 Time of Service: 09:25 Occupational Therapy Notes Occupational Therapy Inpatient Discharge Summary Date: 10/24/21 Dates of Service: 10.23.21 Referring Doctor: Shreya Parker MD OT Orders: Non-Urgent- Limited Ability Precautions: Fall, standard, Full *This document serves as a summary of care, no skilled OT services provided for this documentation* PATIENT PROFILE/ADMITTING DIAGNOSIS: Pt is an 86 year old female who was admitted through the ED for the following dx of mass of cecum, lower GI bleed, decubitus ulcer, UTI, GI bleed, descending aortic aneurysm, pneumonia, COPD, weakness. 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) Hx of deep venous thrombosis (Resolved) Lumbago (Resolved) Macrocytic anemia (Resolved) Malnutrition (Resolved) Myasthenia gravis (Chronic) Osteoporosis (Chronic) Peripheral neuropathic pain (Inactive) Post herpetic neuralgia (Resolved) Pulmonary arterial hypertension (Acute) PA pressure 35-40 mm Hg Sacral decubitus ulcer, stage IV (Inactive) Surgical History Abdominal fistula (Resolved 08/17/18) repair by Dr Elizalde AV fistula (Inactive) RUE Gastrostomy complication (Resolved 08/17/18) gastric enteric fistula repair by Dr Elizalde Gastrostomy infection (Resolved 08/10/18) Dr Elizalde, excised tissue at old g-tube site and closed g-tube tract surgically. Gastrostomy Tube Placement (Resolved) H/O wisdom tooth extraction (Acute) S/P appendectomy (Acute) Social History/Home Situation: Pt reports that she lives in [place] with her son and his family. She has no stairs in the home that she needs to use and a ramp to enter. Pt reports that she was receiving OT from home health in the past. And that she has a step in tub with removable shower head. PTs baseline (I) in ADLs per pt reports is as follows: Dressing (I) both sitting in chair and standing with FWW, family (A) as needed Eating (I), has (A) with cooking meals Grooming (I) sitting in chair Toileting (I) with use of grab bars Bathing (I) in step in tub with removable shower head while sitting in shower chair, family (A) as needed. Medications (I) Functional Mobility with FWW RCT/family for community mobility Bi-weekly trips to [email or web address] for plasma aphasis tx via (R) UE fistula per pts EMR. Equipment owned/DME: FWW, Grab bars, shower chair, removable shower head. SUBJECTIVE: NT OBJECTIVE: ROM: RUE Flexion limited 100*, elbow WFL, (R) MF TF taped to RF to decreased pain L UE Flexion limited to 80* STRENGTH: RUE 3+/5 throughout globally LUE 3+/5 throughout globally FUNCTIONAL MOBILITY/ADLS: *No skilled OT services provided for this documentation. Dressing- max (A) don and doffing (B) socks, max (A) shirt and max (A) pants Bathing Pt denies as she reports that she is too fatigued. She states that she cannot do this on her own at this time. BALANCE: Static sitting Good Dynamic sitting Good ASSESSMENT: Patient is a 86 year-old female referred to occupational therapy services with diagnosis of mass of cecum, lower GI bleed, decubitus ulcer, UTI, GI bleed, descending aortic aneurysm, pneumonia, COPD, weakness. Patient states that she is far from baseline at this time. She requires mod-max (A) for her ADLs and is fatigued very easily. Functionally she is stating that she would like to attend SNF and get further care for her cancer. Patient is assessed as a Low [id number] complexity based on the following: History: See PMHX Examination: See functional limitations noted above Presentation: Evolving Decision Making: AMPAC score 13 GOALS- Not met seen for OT consult only. 1. Sitting in chair min (A) UE dressing 2. Sitting in chair min (A) bathing routines PLAN OF CARE/TREATMENT PLAN: Discharge from skilled OT services. DISCHARGE RECOMMENDATIONS SNF for progression of functional activity tolerance, increased functional mobility required for ADLs and increased functional (I) in ADL performance. TREATMENT TIME/MINUTES/CODES N/A Angela Warner, OTR/L [facility] [place]
== END 2021-10-23 18:24 | disposition short-term general hospital (02) | DRG 374 ==
LOC: ER 18:45 → MS 19:34
PROVIDERS: Internal Medicine; Surgery; Admitting Provider Internal Medicine; Emergency Provider Emergency Medicine; PCP Family Medicine; Visit Provider Internal Medicine
PROC: 0DJ68ZZ Inspection of Stomach, Via Natural or Artificial Opening Endoscopic (ICD-10-PCS; CPT 43235; principal; 2021-10-21 09:00)
PROC: 0DJD8ZZ Inspection of Lower Intestinal Tract, Via Natural or Artificial Opening Endoscopic (ICD-10-PCS; CPT 45378; principal; 2021-10-22 12:30)
DX: C18.0 Malignant neoplasm of cecum (principal); L89.154 Pressure ulcer of sacral region, stage 4; K92.1 Melena; I42.9 Cardiomyopathy, unspecified; E46 Unspecified protein-calorie malnutrition; D84.9 Immunodeficiency, unspecified; G70.00 Myasthenia gravis without (acute) exacerbation; I48.0 Paroxysmal atrial fibrillation; I71.4 Abdominal aortic aneurysm, without rupture; J44.9 Chronic obstructive pulmonary disease, unspecified; E53.8 Deficiency of other specified B group vitamins; K59.09 Other constipation; F32.A Depression, unspecified; Z20.822 Contact with and (suspected) exposure to COVID-19; L89.151 Pressure ulcer of sacral region, stage 1; D50.0 Iron deficiency anemia secondary to blood loss (chronic)
CPT/HCPCS: 43235; 45380; 36415; 36430; 80048; 80053; 80076; 84145; 86850; 86900; 86901; 86920; 87493; 87505; 87635; 88305; 93005; 96360; 96365; 97110; 97162; 97166; 97530; 99222; 99232; 99285; 71046; 74177; 81003; 81015; 82378; 83735; 84100; 85025; 85610; 85730; 86140; 87177; 88361; 93010; 99223; J1300; J1720; J1756; J1941; J2001; J2704; J3480; J3490; J7512; P9016

== ENCOUNTER 2021-10-30 01:19 | Outpatient (RCR) | payer MEDICARE, BC, SELFPAY | END 2021-11-22 23:59 | disposition home or self-care (01) | LOC: INF 01:19 | PROVIDERS: PCP Family Medicine; Visit Provider Internal Medicine | DX: R69 Illness, unspecified (principal) | CPT/HCPCS: 94640 ==

== ENCOUNTER 2021-12-07 20:03 | Inpatient (IN) | payer MEDICARE, BC, SELFPAY ==
--- NOTE | 2021-12-07 20:15 | RT.EKG_ITS ---
APPROVED REPORT Exam: Resting ECG Reason for Exam: weakness Patient Location: E HR:87 bpm ECG Measurements Heart Rate 87 AXIS NE 224 P 68 QRSd 89 QRS -21 QT 366 T 14 QTc 441 Conclusion Sinus rhythm...normal P axis, V-rate 60- 99 Prolonged NE interval...NE >220, V-rate 50- 90
[2021-12-07 20:18] VITALS: BP 127/52; PULSE 89; RESP 16; TEMP 36.4; O2SAT 100
[2021-12-07 20:39] VITALS: O2SAT 99
--- NOTE | 2021-12-07 20:42 | W.ED.GENAD ---
Discharge Plan Disposition Patient Disposition: [facility] INPATIENT Condition: Serious Discharge Details Clinical Impression: Decubitus ulcer, stage 4 with infection Primary Care Provider: Maribell Choi ED Provider: Tay Jara Home Meds and New Rx's Prescriptions: No Action sennosides [senna] 8.6 mg tablet 8.6 mg PO BID PRNRF: 0 multivitamin [Multiple Vitamins] Tablet 1 tab PO DAILY RF: 0 melatonin 10 mg Tablet 10 mg PO HS RF: 0 ferrous sulfate 325 MG tablet 325 mg PO DAILY Qty: 0 RF: 0 acidophilus-pectin, citrus 25 million cell -100 mg Tablet 1 cap PO AC Qty: 0 RF: 0 furosemide [Lasix] 20 mg tablet 40 mg PO QAM RF: 0 lidocaine 5 % Adhesive Patch,Medicated 1 patch TOPICAL DAILY PRNRF: 0 folic acid 1 mg Tablet 1 mg PO DAILY RF: 0 Soliris 300 mg/30 mL Solution 1,200 mg IV .EVERY OTHER WEEK RF: 0 Soliris 300 mg/30 mL Solution 600 mg IV .EVERY OTHER WEEK RF: 0 gabapentin 300 MG capsule 600 mg PO BID RF: 0 ergocalciferol (vitamin D2) [Vitamin D2] 50,000 UNITS capsule 50,000 units PO .QOWEEK RF: 0 cyanocobalamin (vitamin B-12) 1,000 MCG/ML solution 1 ea IM .QMONTH RF: 0 bisacodyl 10 MG suppository 1 ea [place] PRN PRNRF: 0 methadone [Dolophine] 5 MG tablet 5 mg PO BID RF: 0 acetaminophen [Tylenol] 325 mg Tablet 650 mg PO Q4H PRN PRNQty: 30 RF: 0 prednisone 10 MG tablet 20 mg PO DAILY RF: 0 albuterol sulfate [ProAir HFA] 90 mcg/actuation HFA aerosol inhaler 2 puff inhalation QID Qty: 6.7 RF: 0 hydromorphone 2 mg tablet 2 mg PO Q4H PRN PRNRF: 0 loperamide 2 mg capsule RF: 0 methadone 5 mg tablet 5 mg PO TID RF: 0 Medical Decision Making 2049 --86-year-old female with multiple medical problems including myasthenia gravis, cardiomyopathy, mass of the cecum, determined recently to be not a surgical candidate, chronic sacral decubitus ulcer, here with fatigue, found to be hypoxic and pale per home health nurse. Oxygen was applied via nasal cannula by EMS, she is currently on 1 L and saturating in the mid 90s with no respiratory distress. Patient is hemodynamically stable. She is fatigued but does arouse easily with verbal stimulation. She is oriented to person place but is confused. Considering home health nurse report, active neoplastic process, and now oxygen requirement, consider acute pulmonary embolism. Plan to obtain CTA of the chest. I am concerned about her sacral decubitus ulcer as it doesn't seem to be a significant amount of purulent foul-smelling drainage. Consider acute infectious process. I will initiate treatment with Vanco and Zosyn. On discussion of CODE STATUS, patient is very clear that she would like to be full code. 2149 -- Labs reviewed. CT pending. -- I spoke with patient's daughter in law, she notes patient has been home from [facility] for the past 6 days. While at [facility] her decubitus ulcer was noted did not appear infected but did note that it was deep and down to the bone and that there was potential for development of osteomyelitis but she was not a candidate for surgical intervention for the ulcer or for the colon mass. 2234 --I have seen and reviewed outside hospital record, discharge summaries from [facility] 12/02/2021 which notes that sacral decubitus ulcer stage IV with prominent necrotic areas concerning for osteomyelitis, surgery and ID were consulted, surgery noted patient was not surgical candidate, ID recommended 2-week course of Azo for soft tissue infection with the understanding that this would not ultimately be a cure. She received 14 days of antibiotics prior to going home and plan was to have wound care nurses change dressings 3 times weekly. 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 2311 --CT of the chest interpreted by radiology:IMPRESSION: 1. No pulmonary artery embolism demonstrated to segmental level. Evaluation more distally limited. 2. Thrombosed intramural ulcer/saccular aneurysm in descending aorta. 3. No aortic dissection. 4. Multiple scattered areas of atelectasis and or scarring. Superimposed infiltrates cannot be excluded in affected portions of each lung. 5. Minute pleural effusions. CT of the abdomen pelvis was interpreted by radiology: IMPRESSION: 1. Decubitus ulcer. 2. Bone loss in coccyx subjacent to the ulcer. Consider further evaluation with bone scan or MRI to assess for osteomyelitis. 3. Distended urinary bladder. I spoke with Dr. Parker, on-call hospitalist, discussed ED presentation and course, she will admit the patient. I will fax discharge summary to [facility] for reference given challenges obtaining this record. HPI General Mode of arrival: EMS. Date/Time Provider Initiated Documentation: 12/07/21 20:08. Limitations to Documentation: no limitations. Information obtained by: patient, RN/MD and EMS. HPI Narrative: 86-year-old female with multiple medical problems including history of myasthenia gravis, receives weekly plasmapheresis, cardiomyopathy, A. fib, sacral decubitus ulcer stage IV, recent GI bleed, mass of cecum identified on colonoscopy -determined to be too high risk for resection recently at [facility] -sent from home by home health nurse who noted concern for general skin and hypoxia. EMS found patient be saturating in low 90s and applied nasal cannula oxygen. Saturation did improve. Patient notes that she does have chronic back pain but otherwise has no complaints. History and review of systems is limited secondary to altered mental status. Related Data Home Medications Medication Instructions Recorded Confirmed gabapentin 600 mg PO BID 07/08/17 12/07/21 cyanocobalamin (vitamin B-12) 1 ea IM .QMONTH 07/27/17 10/16/21 ergocalciferol (vitamin D2) 50,000 units PO .QOWEEK 07/27/17 12/07/21 [Vitamin D2] bisacodyl 1 ea [place] PRN PRN 09/26/17 10/16/21 sennosides 8.6 mg tablet 8.6 mg PO BID PRN 08/02/18 12/07/21 methadone [Dolophine] 5 mg PO BID 08/06/18 12/07/21 acetaminophen [Tylenol] 650 mg PO Q4H PRN PRN #30 tab 08/10/18 12/07/21 multivitamin [Multiple Vitamins] 1 tab PO DAILY 08/16/18 12/07/21 melatonin 10 mg PO HS 02/04/20 12/07/21 ferrous sulfate 325 mg PO DAILY #0 tab 02/12/20 12/07/21 acidophilus-pectin, citrus 1 cap PO AC #0 tab 02/15/20 12/07/21 furosemide [Lasix] 40 mg PO QAM 09/18/20 12/07/21 prednisone 20 mg PO DAILY 09/19/20 12/07/21 albuterol sulfate [ProAir HFA] 2 puff INHALATION QID #6.7 g 09/20/20 12/07/21 folic acid 1 mg PO DAILY 10/16/21 12/07/21 lidocaine 1 patch TOPICAL DAILY PRN 10/16/21 10/16/21 eculizumab [Soliris] 1,200 mg IV .EVERY OTHER WEEK 10/23/21 10/23/21 eculizumab [Soliris] 600 mg IV .EVERY OTHER WEEK 10/23/21 10/23/21 hydromorphone 2 mg PO Q4H PRN PRN 12/07/21 12/07/21 loperamide 12/07/21 12/07/21 methadone 5 mg PO TID 12/07/21 12/07/21 Previous Rx's Medication Instructions Recorded acetaminophen [Tylenol] 650 mg PO Q4H PRN PRN #30 tab 08/10/18 ferrous sulfate 325 mg PO DAILY #0 tab 02/12/20 acidophilus-pectin, citrus 1 cap PO AC #0 tab 02/15/20 albuterol sulfate [ProAir HFA] 2 puff INHALATION QID #6.7 g 09/20/20 Allergies Allergy/AdvReac Type Severity Reaction Status Date / Time FAHAD Inhibitors Allergy Unverified 12/07/21 20:26 Beta-Blockers Allergy Unverified 12/07/21 20:26 (Beta-Adrenergic Bloc Sulfa (Sulfonamide Allergy Hives Verified 12/07/21 20:26 Antibiotics) sulfamethoxazole Allergy Unverified 12/07/21 20:26 [From Bactrim] trimethoprim [From Bactrim] Allergy Unverified 12/07/21 20:26 General Stated Complaint: GenMedical KIERSTEN: 2 Review of Systems Unobtainable due to mental status PFSH All Active Problems (Updated 12/07/21 @ 23:40 by Shreya Parker MD) Discharge planning issues (Acute) DVT prophylaxis (Acute) Cecal cancer (Acute) Hypoxic episode (Acute) Osteomyelitis of coccyx (Acute) Decubitus ulcer, stage 4 with infection (Acute) Mass of cecum (Acute) Lower GI bleeding (Acute) Decubitus ulcer of sacral area (Chronic) Ambulatory dysfunction (Acute) Diarrhea (Acute) Guaiac positive stools (Acute) Palliative care patient (Acute) UTI (urinary tract infection) (Acute) Dependent edema (Acute) GI bleed (Chronic) Descending aortic aneurysm (Chronic) 10/20/21: Ectatic aorta with saccular aneurysm descending aorta. Will have outpatient followup when possible Pneumonia (Acute) COPD (chronic obstructive pulmonary disease) (Chronic) Weakness (Acute) Exertional dyspnea (Acute) Ileus, unspecified (Acute) Elevated troponin (Acute) Indeterminate level Weakness (Acute) Thrush, oral (Acute) Atrial fibrillation (Chronic) Myasthenia gravis (Chronic) Receiving Plasmapheresis at [facility] Multifocal pneumonia (Acute) Pseudomonas pneumonia (Acute) Aspiration pneumonitis (Acute) Eating disorder (Acute) Debility (Acute) Sepsis (Acute) Hypokalemia (Acute) Medical History Aspiration pneumonia B12 deficiency Cardiomyopathy Echo 12/10/2018: EF 60-65%, up from 35% previously; does have diastolic dysfunction Chronic constipation Chronic insomnia Chronic pain on methadone therapy Compression fracture of spine Depression Dysphagia 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 Gastrostomy Tube Placement H/O wisdom tooth extraction S/P appendectomy Family History Father Heart disease Mother Cancer pancreatic Social History Smoking/Tobacco Use Status: Never Smoking risk assessment performed?: Yes Alcohol Intake: current Alcohol Intake frequency: a few times a week Alcohol type: hard liquor Drug use: Never Substance use type: does not use Do you feel safe at home: Yes Do you feel safe in your relationship?: Yes Additional Social history: live with son and his family Exam Const General: cooperative, no acute distress and frail appearing [facility] Head: normocephalic and atraumatic Mouth: moist mucous membranes Eyes Conjunctivae: normal conjunctivae Sclera: normal sclerae Resp Auscultation: clear to auscultation bilaterally, no rales, no rhonchi and no wheezes Cardio Jugular venous pressure: no JVD Rate: regular rate and not tachycardic Rhythm: regular rhythm GI Palpation: soft, not firm, no guarding, no masses, not rigid and nontender Back/Spine/Pelvis Sacrum: erythema (Surrounding decubitus ulcer with significant purulent discharge) Skin General skin exam: no rashes or lesions noted Neuro General: patient alert, patient awake, oriented Patient Orientation: Person, Place and Confused and tone normal Extrem General: no edema Psych Appearance: grossly normal Speech and Movement: slowed movement Course Vital Signs Vital signs: Vital Signs Temperature 36.4 C L 12/07/21 20:18 Pulse 89 12/07/21 20:18 Respiratory Rate 16 12/07/21 20:18 Blood Pressure 127/52 L 12/07/21 20:18 Pulse Oximetry 100 12/07/21 20:18 Temperature 36.4 C L 12/07/21 20:18 Temperature Source Temporal Artery Scan 12/07/21 20:18 Pulse 89 12/07/21 20:18 Respiratory Rate 16 12/07/21 20:18 Blood Pressure 127/52 L 12/07/21 20:18 Pulse Oximetry 100 12/07/21 20:18 Oxygen Delivery Method Nasal Cannula 12/07/21 20:18 Oxygen Flow Rate 1 12/07/21 20:18 Pain Level 6 12/07/21 20:18 Comment 12/07/21 20:18
[2021-12-07 20:52] LABS: Source Nasopharynx
[2021-12-07 20:54] LABS: Abs Immature Grans 0.05 10^3/uL (0.0-0.06); Absolute Basophil Count 0.03 10^3/uL (0.0-0.2); Absolute Eosinophil Count 0.03 10^3/uL (0.0-0.7); Absolute Lymphocyte Count 0.26 10^3/uL (1.2-3.4); Absolute Monocyte Count 0.71 10^3/uL (0.1-0.8); Absolute Neutrophil Count 9.38 10^3/uL (1.2-6.7); Basophils % 0.3; Eosinophils % 0.3; HCT 32.4 % (36.0-46.0); HGB 9.8 g/dL (11.2-15.7); Immature Grans % 0.5; Lymphocytes % 2.5; MCH 33.3 pg (27.0-33.0); MCHC 30.2 % (32.0-36.0); MCV 110.2 fL (80-95); MPV 10.5 fL (8.0-11.0); Monocytes % 6.8; Neutrophils % 89.6; Nucleated RBC 1 %; Platelet Count 154 10^3/uL (130-400); RBC 2.94 10^6/uL (3.93-5.22); RDW 24.7 % (11.7-14.6); RDW-SD 96.9 fL; WBC 10.46 10^3/uL (4.4-10.8)
--- NOTE | 2021-12-07 21:00 | DI.CT_ITS ---
Exam(s) CT CHEST PE ABD PELVIS W EXAM: CT CHEST PE ABD PELVIS W CLINICAL HISTORY: hypoxia, cancer, lethargy, infected decubit ulcer. TECHNIQUE: Imaging Protocol: Axial CT angiography was performed with multi-slice acquisition and m ulti-planar and/or 3D reconstructions. CONTRAST MATERIAL: Intravenous: Omnipaque 350 Contrast volume:74 Oral: None COMPARISON: CR XR CHEST 2V PA LATERAL from 10/16/[address] ABDOMEN PELVIS W from 10/22/2021 FINDINGS: CHEST: PULMONARY ARTERIES: Opacification of the pulmonary arteries is satisfactory to the 3rd order level bu t not beyond. There are no intra-arterial filling defects to suggest the presence of acute pulmonary emboli within the opacified pulmonary arterial tree. LUNGS: There is some bilateral chronic appearing interstitial disease but there also appear to be bliss perimposed bilateral infiltrates..Very minimal pleural fluid on the left. No large pleural effusions . MEDIASTINUM: There is no hilar nor mediastinal adenopathy. There is no subcarinal adenopathy. Visual ized thyroid gland appears unremarkable. CARDIAC: There is cardiomegaly. No pericardial effusion. Somewhat atherosclerotic thoracic aorta. The diameter of the ascending thoracic aorta is 3.4 cm, within normal limits. There is no dissection . However, there is a thrombosed saccular focal aneurysm on the posterior wall of the descending tho racic aorta which measures 1.7 cm wide by 1.3 cm AP by 2 cm craniocaudal. There is no dissection. OSSEOUS: There are adjacent wedge compression fractures of to the thoracic vertebrae, appearing to be T7 and T8, age indeterminate. Also compression fracture of T12 which is unchanged from 10/22/2021. ABDOMEN: There is no ascites. LIVER: There are no focal hepatic lesions. GALLBLADDER/BILIARY: No obvious gallbladder pathology. CBD is not dilated. PANCREAS: No evidence of pancreatic mass nor dilatation of the pancreatic duct. SPLEEN: Spleen is not enlarged. There are no intrasplenic lesions. Splenic and portal veins are robles nt. ADRENALS: There are no significant adrenal masses. KIDNEYS:No cysts evident. No calculi nor hydronephrosis. No solid renal masses. ABDOMINAL AORTA: Calcified and atherosclerotic. Upper normal diameter LYMPH NODES: There is no retroperitoneal or para-aortic adenopathy. ABDOMINAL WALL/GI: No evidence of significant anterior abdominal wall hernia. No bowel obstruction. PELVIS: LYMPH NODES: There is no intrapelvic nor inguinal adenopathy. GI: Appendix is surgically absent.No evidence of sigmoid diverticulitis. URINARY BLADDER: No calculi nor masses evident REPRODUCTIVE: Uterus and adnexal regions age-appropriate in appearance. Cystocele noted OSSEOUS: Compression fracture of T12, age indeterminate. Also loss of endplate height at superior en dplate of L3 and inferior endplate of L2. There is a decubitus ulcer over the sacrum again noted. The amount of adjacent bone loss in the lowe r most sacrum is unchanged from 10/22/2021. IMPRESSION: 1. No evidence of acute pulmonary emboli nor pulmonary infarction, realized limitations of this injec gutierrez study. There are, however, some infiltrates in both lung rocha. Testing for Covid 19 is recomm ended. There are no ominous pulmonary nodules. No large pleural effusions.. 2. Atherosclerotic aorta. There is a thrombosed saccular aneurysm on the posterior wall of the ascen ding thoracic aorta with measurements as above. No dissection 3. Appendix is surgically absent. 4. Multiple compression fractures in the spinal column, age indeterminate. 5. Posteriorly located decubitus ulcer and subjacent sacrum appear unchanged from 10/22/2021. No fur ther bone destruction. RADIATION DOSE DELIVERED: 763.9mGy.cm Total DLP DATA REPOSITORY: All CT scans at this facility are submitted to the National Radiology Data Registry (NRDR) Dose Index Registry (DIR) with the [employer] (A[employer]). RADIATION OPTIMIZATION: All CT scans at this facility use at least one of these dose optimization te chniques: automated exposure control; mA and/or kV adjustment per patient size (includes targeted exa ms where dose is matched to clinical indication); or iterative reconstruction.
[2021-12-07 21:14] LABS: ALT 38 U/L (14-59); AST 24 U/L (15-37); Albumin 3.5 g/dL (3.4-5.0); Alkaline Phosphatase 79 U/L (46-116); Anion Gap 4.8 mmol/L (3-11); BUN 22 mg/dL (7-18); Bilirubin, Total 0.6 mg/dL (0.2-1.0); CO2 34.2 mmol/L (21.0-32.0); CREATININE 1.3 mg/dL (0.55-1.02); Calcium 9.6 mg/dL (8.5-10.1); Chloride 100 mmol/L (98-107); Estimated GFR 39.02 (mL/min/1.73m2); Glucose 108 mg/dL (74-106); Magnesium 2.4 mg/dL (1.8-2.4); Potassium 4.2 mmol/L (3.5-5.1); Sodium 139 mmol/L (136-145); Total Protein 6.3 g/dL (6.4-8.2); Troponin I < 50 ng/L (<or=60)
[2021-12-07 21:24] LABS: Anisocytosis 2+; Diff Comment RBC Morph Reviewed; Hypochromasia 1+; Macrocytosis 2+; Polychromasia Present
[2021-12-07 21:25] LABS: Poikilocytes 1+
[2021-12-07 21:38] LABS: Bilirubin Negative (Negative); Blood Negative (Negative); Clarity Clear (Clear); Glucose Negative (Negative); Ketones Negative (Negative); Leukocyte Esterase Negative (Negative); Nitrite Negative (Negative); Urobilinogen 0.2 EU/dL (Up TO 0.2)
[2021-12-07 21:51] LABS: COVID-19 PCR Negative (Negative); Influenza A PCR Negative (Negative); Influenza B PCR Negative (Negative); RSV PCR Negative (Negative)
[2021-12-07] MEDS: Omnipaque 350 MG/ML 100 ML BTL IJ (22:00)
[2021-12-07] MEDS: PIPERACILLIN/TAZO 4.5 GM in Normal Saline 100 ML IVPB (22:18)
[2021-12-07 22:30] VITALS: RESP 12
[2021-12-07 22:39] VITALS: O2SAT 87
[2021-12-07 22:40] VITALS: O2SAT 100
--- NOTE | 2021-12-07 23:03 | DI.VRAD_ITS ---
PROCEDURE INFORMATION: Exam: CTA Chest With Contrast Exam date and time: 12/07/2021 9:07 PM Age: 86 years old Clinical indication: Patient HX: Hypoxic, cancer, lethargy, infected decub ulcer TECHNIQUE: Imaging protocol: Computed tomographic angiography of the chest with contrast. 3D rendering (Not supervised by radiologist): MIP and/or 3D reconstructed images were created by the technologist. COMPARISON: CT CHEST PE CTA 10/10/2021 8:58 PM FINDINGS: Pulmonary arteries: No pulmonary artery filling defects to segmental level. Evaluation more distally limited, specially in lower lobes, due to motion degradation of images. Aorta: No aortic dissection. 1 x 1.8 x 1.5 thrombosed intramural ulcer/saccular aneurysm at 6 o'clock position, descending aorta, unchanged Lungs: Multiple scattered areas of atelectasis and or scarring in each lung. No dense parenchymal consolidation. Bronchiectasis in right middle lobe and lingula. Pleural spaces: No pneumothorax. Minute pleural effusions. Heart: Heart top normal in size. Heart RV/LV ratio: RV/LV ratio less than 1. Lymph nodes: No adenopathy. Stomach and bowel: Prior gastric surgery. Bones/joints: Pectus excavatum deformity.The spine demonstrates moderate degenerative changes at multiple levels. Multiple subacute or chronic mid and lower thoracic vertebral body compression fractures, unchanged. Soft tissues: Unremarkable. IMPRESSION: 1. No pulmonary artery embolism demonstrated to segmental level. Evaluation more distally limited. 2. Thrombosed intramural ulcer/saccular aneurysm in descending aorta. 3. No aortic dissection. 4. Multiple scattered areas of atelectasis and or scarring. Superimposed infiltrates cannot be excluded in affected portions of each lung. 5. Minute pleural effusions. PROCEDURE INFORMATION: Exam: CT Abdomen And Pelvis With Contrast Exam date and time: 12/07/2021 9:07 PM Age: 86 years old Clinical indication: Patient HX: Hypoxic, cancer, lethargy, infected decub ulcer TECHNIQUE: Imaging protocol: Computed tomography of the abdomen and pelvis with contrast. COMPARISON: CT CHEST PE CTA 10/10/2021 8:58 PM FINDINGS: Liver: Normal. No mass. Gallbladder and bile ducts: Normal. No calcified stones. No ductal dilation. Pancreas: Normal. No ductal dilation. Spleen: Normal. No splenomegaly. Adrenal glands: Normal. No mass. Kidneys and ureters: Normal. No hydronephrosis. Stomach and bowel: No dilated loops of small bowel or colonic dilatation. Appendix: Prior appendectomy suspected. Intraperitoneal space: No free intraperitoneal gas. No ascites. Vasculature: Unremarkable. No abdominal aortic aneurysm. Lymph nodes: Unremarkable. No enlarged lymph nodes. Urinary bladder: Urinary bladder distended without wall thickening. Reproductive: Unremarkable as visualized. Bones/joints: Decubitus ulcer extends to dorsal border of coccyx. There is bone loss in the coccyx subjacent to the ulcer, , . The spine demonstrates moderate degenerative changes at multiple levels. Multilevel Schmorl's nodes. Soft tissues: See Bones/joints finding. IMPRESSION: 1. Decubitus ulcer. 2. Bone loss in coccyx subjacent to the ulcer. Consider further evaluation with bone scan or MRI to assess for osteomyelitis. 3. Distended urinary bladder. Dictated and Authenticated by: Tucker Barlow MD. Ordering:EVON Cross MD
[2021-12-07] MEDS: VANCOMYCIN 1,000 MG in Normal Saline 250 ML 166.6666 MG IVPB (23:24)
[2021-12-07 23:27] LABS: C-Reactive Protein 7.53 mg/dL (0.0-0.3)
[2021-12-07 23:31] VITALS: BP 102/60; PULSE 79; RESP 15; TEMP 36.6; O2SAT 98
--- NOTE | 2021-12-07 23:31 | HPE_ITS ---
Date of service: 12/07/21 Time of Service: 23:31 Assessment and Plan Assessment and plan (1) Decubitus ulcer, stage 4 with infection: Status: Acute Assessment and plan: Continue empiric vancomycin/zosyn. Obtain wound culture. Consult wound care and general surgery. (2) Osteomyelitis of coccyx: Status: Acute Assessment and plan: As above. Consider ID consult for chcf antibiotics if this aligns with the patient's goals of care. (3) Hypoxic episode: Status: Acute Assessment and plan: No evidence of PE. Tested negative for COVID-19. ?due to effects of opioid medications. Less likely due to myasthenia gravis. Monitor O2 sats. Provide IS. 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 Consult palliative care. (5) Myasthenia gravis: Status: Chronic Assessment and plan: On weekly plasmophoresis treatms and soliris at [facility], usually gets treatments on Tuesdays. Also, on prednisone, which we will continue. If still here on Thursday, would consider transfer to [facility]. (6) DVT prophylaxis: Status: Acute Assessment and plan: SCDs due to h/o GI bleeding (7) Discharge planning issues: Status: Acute Assessment and plan: Full code Consult Palliative Care History of Present Illness History of Present Illness Chief Complaint: Our friend, nurse practitioner, said I should go to the hospital Narrative: Ms Carpio is an 86 year old female, well known to our service, who has a PMHx of Myasthenia gravis, on weekly plasmaphoresis and soliris at [facility], as well as h/o cecal cancer being treated with radiation, a sacral decubitus ulcer infection with osteomyelitis of underlying bone, having just completed two weeks of antibiotics at [facility], which were not thought to be curative, and h/o GI bleeding, who presented to [facility] ED today after being noted to be pale and hypoxic at home by a home health nurse. Unfortunately, more precise information is not available at this time. The patient was saturating 100% on 1L of O2 in our ED. PE was ruled out with a negative CTA. There is a concern that, perhaps her hypoxia has to do with her being on methadone and dilaudid at home. On her assessment in the ED, her sacral decubitus ulcer was felt to be infected. The ulcer was previously evaluated at [facility] by general surgery, but at the time the patient was not thought to be a surgical candidate, nor did it align with her goals of care, so she was treated with two weeks of zosyn and discharged home with home health wound care. Today, the patient cannot tell me exactly what happened that warranted her visit to the hospital. They said I had a seizure or something. The patient has no recol lection of any event and cannot give me any more specifics. The patient states that they had called a friend of theirs, a nurse practitioner, to come to the house to look at her, and she had told her to go to the hospital. The patient states that the ulcer is bothering her. She agrees to have a surgeon evaluate her here and would be amenable to a bedside debridement. The patient remains full code at this time. She is willing to talk to palliative care to help delineate her goals of care further. Review of Systems All systems reviewed & are unremarkable except as noted in HPI and below PFSH All Active Problems (Updated 12/07/21 @ 23:40 by Shreya Parker MD) Discharge planning issues (Acute) DVT prophylaxis (Acute) Cecal cancer (Acute) Hypoxic episode (Acute) Osteomyelitis of coccyx (Acute) Decubitus ulcer, stage 4 with infection (Acute) Mass of cecum (Acute) Lower GI bleeding (Acute) Decubitus ulcer of sacral area (Chronic) Ambulatory dysfunction (Acute) Diarrhea (Acute) Guaiac positive stools (Acute) Palliative care patient (Acute) UTI (urinary tract infection) (Acute) Dependent edema (Acute) GI bleed (Chronic) Descending aortic aneurysm (Chronic) 10/20/21: Ectatic aorta with saccular aneurysm descending aorta. Will have outpatient followup when possible Pneumonia (Acute) COPD (chronic obstructive pulmonary disease) (Chronic) Weakness (Acute) Exertional dyspnea (Acute) Ileus, unspecified (Acute) Elevated troponin (Acute) Indeterminate level Weakness (Acute) Thrush, oral (Acute) Atrial fibrillation (Chronic) Myasthenia gravis (Chronic) Receiving Plasmapheresis at [facility] Multifocal pneumonia (Acute) Pseudomonas pneumonia (Acute) Aspiration pneumonitis (Acute) Eating disorder (Acute) Debility (Acute) Sepsis (Acute) Hypokalemia (Acute) Medical History Aspiration pneumonia B12 deficiency Cardiomyopathy Echo 12/10/2018: EF 60-65%, up from 35% previously; does have diastolic dy sfunction Chronic constipation Chronic insomnia Chronic pain on methadone therapy Compression fracture of spine Depression Dysphagia 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 Gastrostomy Tube Placement H/O wisdom tooth extraction S/P appendectomy Family History Father Heart disease Mother Cancer pancreatic Social History Smoking/Tobacco Use Status: Never Smoking risk assessment performed?: Yes Alcohol Intake: current Alcohol Intake frequency: a few times a week Alcohol type: hard liquor Drug use: Never Substance use type: does not use Do you feel safe at home: Yes Do you feel safe in your relationship?: Yes Additional Social history: live with son and his family Meds Allergies and Home Medications Allergies Allergy/AdvReac Type Severity Reaction Status Date / Time FAHAD Inhibitors Allergy Unverified 12/07/21 20:26 Beta-Blockers Allergy Unverified 12/07/21 20:26 (Beta-Adrenergic Bloc Sulfa (Sulfonamide Allergy Hives Verified 12/07/21 20:26 Antibiotics) sulfamethoxazole Allergy Unverified 12/07/21 20:26 [From Bactrim] trimethoprim [From Bactrim] Allergy Unverified 12/07/21 20:26 Home Medications Medication Instructions Recorded Confirmed Type gabapentin 600 mg PO BID 07/08/17 12/07/21 History cyanocobalamin (vitamin B-12) 1 ea IM .QMONTH 07/27/17 10/16/21 History ergocalciferol (vitamin D2) 50,000 units PO .QOWEEK 07/27/17 12/07/21 History [Vitamin D2] bisacodyl 1 ea [place] PRN PRN 09/26/17 10/16/21 History sennosides 8.6 mg tablet 8.6 mg PO BID PRN 08/02/18 12/07/21 History methadone [Dolophine] 5 mg PO BID 08/06/18 12/07/21 History acetaminophen [Tylenol] 650 mg PO Q4H PRN PRN #30 tab 08/10/18 12/07/21 Rx multivitamin [Multiple Vitamins] 1 tab PO DAILY 08/16/18 12/07/21 History melatonin 10 mg PO HS 02/04/20 12/07/21 History ferrous sulfate 325 mg PO DAILY #0 tab 02/12/20 12/07/21 Rx acidophilus-pectin, citrus 1 cap PO AC #0 tab 02/15/20 12/07/21 Rx furosemide [Lasix] 40 mg PO QAM 09/18/20 12/07/21 History prednisone 20 mg PO DAILY 09/19/20 12/07/21 History albuterol sulfate [ProAir HFA] 2 puff INHALATION QID #6.7 g 09/20/20 12/07/21 Rx folic acid 1 mg PO DAILY 10/16/21 12/07/21 History lidocaine 1 patch TOPICAL DAILY PRN 10/16/21 10/16/21 History eculizumab [Soliris] 1,200 mg IV .EVERY OTHER WEEK 10/23/21 10/23/21 History eculizumab [Soliris] 600 mg IV .EVERY OTHER WEEK 10/23/21 10/23/21 History hydromorphone 2 mg PO Q4H PRN PRN 12/07/21 12/07/21 History loperamide 12/07/21 12/07/21 History methadone 5 mg PO TID 12/07/21 12/07/21 History Exam Narrative Exam Narrative: General: Pleasant frail elderly female who is a vague history provider, A&Ox3, no focal deficits, looks weak and tired Neurological: A&Ox3, no focal deficits Psychiatric: Appropriate speech pattern/content Skin: Stage IV Sacral decubitus wound with purulent drainage HEENT: Atraumatic,normocephalic, EOMI, MMM, clear oropharynx, no submandibular or cervical lymphadenopathy, no goiter or JVD Cardiovascular: RRR Lungs: CTAB Gastrointestinal: soft, nontender, nondistended Genitourinary: deferred Extremities: Trace edema BLEs Results Imaging Additional studies: CT chest/abdomen/pelvis: 1. No pulmonary artery embolism demonstrated to segmental level. Evaluation more distally limited. 2. Thrombosed intramural ulcer/saccular aneurysm in descending aorta. 3. No aortic dissection. 4. Multiple scattered areas of atelectasis and or scarring. Superimposed infiltrates cannot be excluded in affected portions of each lung. 5. Minute pleural effusions. 1. Decubitus ulcer. 2. Bone loss in coccyx subjacent to the ulcer. Consider further evaluation with bone scan or MRI to assess for osteomyelitis. 3. Distended urinary bladder. EKG: NSR, HR 87, no acute ischemia Labs Result diagrams: 12/07/21 20:45 12/07/21 20:45 Labs: Laboratory Results - last 24 hr 12/07/21 12/07/21 12/07/21 20:45 20:45 21:08 WBC 10.46 RBC 2.94 L Hgb 9.8 L Hct 32.4 L MCV 110.2 H MCH 33.3 H MCHC 30.2 L RDW 24.7 H Plt Count 154 MPV 10.5 Immature Gran % 0.5 Neutrophils % 89.6 Lymphocytes % 2.5 Monocytes % 6.8 Eosinophils % 0.3 Basophils % 0.3 Nucleated RBC % 1 Absolute Neutrophils 9.38 H Absolute Lymphocytes 0.26 L Absolute Monocytes 0.71 Absolute Eosinophils 0.03 Absolute Basophils 0.03 RBC Morphology See Below Polychromasia Present Hypochromasia 1+ Poikilocytosis 1+ Anisocytosis 2+ Macrocytosis 2+ Sodium 139 Potassium 4.2 Chloride 100 Carbon Dioxide 34.2 H Anion Gap 4.8 BUN 22 H Creatinine 1.3 H Estimated GFR/1.73 m2 39.02 Glucose 108 H Calcium 9.6 Magnesium 2.4 Total Bilirubin 0.6 AST 24 ALT 38 Alkaline Phosphatase 79 Troponin I < 50 C-Reactive Protein 7.53 H Total Protein 6.3 L Albumin 3.5 Urine Color Urine Clarity Urine pH Ur Specific [place] Urine Protein Urine Ketones Urine Blood Urine Nitrite Urine Bilirubin Urine Urobilinogen Ur Leukocyte Esterase Urine Glucose COVID-19 Source Nasopharynx SARS-CoV-2 (PCR) Negative Influenza Type A (PCR) Negative Influenza Type B (PCR) Negative RSV (PCR) Negative 12/07/21 21:30 WBC RBC Hgb Hct MCV MCH MCHC RDW Plt Count MPV Immature Gran % Neutrophils % Lymphocytes % Monocytes % Eosinophils % Basophils % Nucleated RBC % Absolute Neutrophils Absolute Lymphocytes Absolute Monocytes Absolute Eosinophils Absolute Basophils RBC Morphology Polychromasia Hypochromasia Poikilocytosis Anisocytosis Macrocytosis Sodium Potassium Chloride Carbon Dioxide Anion Gap BUN Creatinine Estimated GFR/1.73 m2 Glucose Calcium Magnesium Total Bilirubin AST ALT Alkaline Phosphatase Troponin I C-Reactive Protein Total Protein Albumin Urine Color Yellow Urine Clarity Clear Urine pH 7.0 Ur Specific [place] 1.020 Urine Protein Negative Urine Ketones Negative Urine Blood Negative Urine Nitrite Negative Urine Bilirubin Negative Urine Urobilinogen 0.2 Ur Leukocyte Esterase Negative Urine Glucose Negative COVID-19 Source SARS-CoV-2 (PCR) Influenza Type A (PCR) Influenza Type B (PCR) RSV (PCR) Last Vital Signs Temp 36.4 C L 12/07/21 20:18 Pulse 89 12/07/21 20:18 Resp 12 12/07/21 22:30 BP 127/52 L 12/07/21 20:18 Pulse Ox 100 12/07/21 22:40 PAWSS Have you Been Recently Intoxicated or Drunk Within the Last 30 days?: No Have you Ever Experienced Previous Episodes of Alcohol Withdrawal?: No Have you ever Experienced Withdrawal Seizures?: No Have you ever Experienced Delirium Tremens(DT)s?: No Have you ever undergone Alcohol Rehabilitation Treatment (i.e, inpt ot outp atient treatment programs)?: No Have you ever Experienced Blackouts?: No Have you ever Combined Alcohol with other Downers within the last 90 days?: No Have you ever Combined Alcohol with any other Substance of Abuse during the last 90 days?: No Result: 0
[2021-12-07 23:50] LABS: Procalcitonin 0.1 ng/mL
[2021-12-08 00:46] VITALS: BP 123/61; PULSE 82; RESP 15; TEMP 36.5; O2SAT 99
[2021-12-08] MEDS: Acetaminophen 325 MG TAB PO (01:44)
[2021-12-08] MEDS: Normal Saline 500 ML 30 ML IV (05:14)
[2021-12-08] MEDS: Normal Saline Flush 10 ML SYR IVP ×2 (05:16→14:39)
[2021-12-08 05:27] VITALS: BP 137/67; PULSE 90; RESP 16; TEMP 36; O2SAT 100
[2021-12-08 06:25] LABS: Abs Immature Grans 0.02 10^3/uL (0.0-0.06); Absolute Basophil Count 0.01 10^3/uL (0.0-0.2); Absolute Lymphocyte Count 0.55 10^3/uL (1.2-3.4); Absolute Monocyte Count 0.64 10^3/uL (0.1-0.8); Absolute Neutrophil Count 6.74 10^3/uL (1.2-6.7); Basophils % 0.1; HCT 28.2 % (36.0-46.0); HGB 8.8 g/dL (11.2-15.7); Immature Grans % 0.3; Lymphocytes % 6.9; MCH 33.6 pg (27.0-33.0); MCHC 31.2 % (32.0-36.0); MCV 107.6 fL (80-95); MPV 11.1 fL (8.0-11.0); Neutrophils % 84.7; Nucleated RBC 0 %; Platelet Count 147 10^3/uL (130-400); RBC 2.62 10^6/uL (3.93-5.22); RDW 24.5 % (11.7-14.6); RDW-SD 92.4 fL; WBC 7.96 10^3/uL (4.4-10.8)
[2021-12-08 06:41] LABS: Anisocytosis 2+; Hypochromasia 1+; Macrocytosis 2+; Polychromasia Present
[2021-12-08 06:42] LABS: Anion Gap 1.4 mmol/L (3-11); BUN 21 mg/dL (7-18); C-Reactive Protein 9.95 mg/dL (0.0-0.3); CO2 35.6 mmol/L (21.0-32.0); CREATININE 1.2 mg/dL (0.55-1.02); Calcium 9.1 mg/dL (8.5-10.1); Chloride 102 mmol/L (98-107); Glucose 91 mg/dL (74-106); Magnesium 2.2 mg/dL (1.8-2.4); Potassium 5.7 mmol/L (3.5-5.1); Sodium 139 mmol/L (136-145)
--- NOTE | 2021-12-08 06:43 | SCONE_ITS ---
Date of service: 12/08/21 Time of Service: 06:43 Assessment and Plan Assessment and plan (1) Decubitus ulcer of sacral area: Status: Chronic Assessment and plan: -Does not appear to be infected and would not recommend continued antibiotics for treatment of this wound. -Tissues appear viable with a very small amount of slough which can be treated using Santyl and twice daily dressing changes x 1 week. -Discussed frequent repositioning with patient at least every two hours for offloading. 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 -Would recommend air mattress if possible -Pain control for comfort -Needs to continue senior living follow up with wound care -If clinical suspicion remains high for possibility of osteomyelitis would then recommend obtaining an MRI pelvis if the patient is able to tolerate it Qualifiers: Pressure injury stage: stage 4 Qualified Code(s): L89.154 - Pressure ulcer of sacral region, stage 4 History of Present Illness Narrative: 86-year-old female with multiple medical comorbidities and long- standing sacral decubitus ulcer who I was asked to see in consultation for a valuation of this wound. CT scan was performed without evidence of subcutaneous soft tissue infectious process. Wound cultures were obtained but I would not advise treatment based off of these as the wound is likely colonized. difficult to tell if there is evidence of osteomyelitis as this would require either a bone biopsy or MRI. Because patient is not insensate would advise MRI if continued concern for osteomyelitis is present. It does not appear to be infected per my exam as it is without malodor, pus or concerning appearing drainage. Patient reports that the only treatment she uses topically for this wound is a zinc barrier cream followed by OPTi foam and frequent repositioning. Consults Consult date: 12/08/21 Requesting physician: Shreya Parker Review of Systems All systems reviewed & are unremarkable except as noted in HPI and below PFSH All Active Problems (Updated 12/08/21 @ 12:48 by Shikha Saleh DO) Discharge planning issues (Acute) DVT prophylaxis (Acute) Cecal cancer (Acute) Hypoxic episode (Acute) Osteomyelitis of coccyx (Acute) Decubitus ulcer, stage 4 with infection (Acute) Mass of cecum (Acute) Lower GI bleeding (Acute) Decubitus ulcer of sacral area (Chronic) Ambulatory dysfunction (Acute) Diarrhea (Acute) Guaiac positive stools (Acute) Palliative care patient (Acute) UTI (urinary tract infection) (Acute) Dependent edema (Acute) GI bleed (Chronic) Descending aortic aneurysm (Chronic) 10/20/21: Ectatic aorta with saccular aneurysm descending aorta. Will have outpatient followup when possible Pneumonia (Acute) COPD (chronic obstructive pulmonary disease) (Chronic) Weakness (Acute) Exertional dyspnea (Acute) Ileus, unspecified (Acute) Elevated troponin (Acute) Indeterminate level Weakness (Acute) Thrush, oral (Acute) Atrial fibrillation (Chronic) Myasthenia gravis (Chronic) Receiving Plasmapheresis at [facility] Multifocal pneumonia (Acute) Pseudomonas pneumonia (Acute) Aspiration pneumonitis (Acute) Eating disorder (Acute) Debility (Acute) Sepsis (Acute) Hypokalemia (Acute) Medical History Aspiration pneumonia B12 deficiency Cardiomyopathy Echo 12/10/2018: EF 60-65%, up from 35% previously; does have diastolic dysfunction Chronic constipation Chronic insomnia Chronic pain on methadone therapy Compression fracture of spine Depression Dysphagia 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 Gastrostomy Tube Placement H/O wisdom tooth extraction S/P appendectomy Family History Father Heart disease Mother Cancer pancreatic Social History Smoking/Tobacco Use Status: Never Smoking risk assessment performed?: Yes Alcohol Intake: current Alcohol Intake frequency: a few times a week Alcohol type: hard liquor Drug use: Never Substance use type: does not use Do you feel safe at home: Yes Do you feel safe in your relationship?: Yes Additional Social history: live with son and his family Exam Const General: cooperative, comfortable, no acute distress and frail appearing HENMT Head: normal to inspection, normocephalic and atraumatic Teeth and gingiva: poor dentition Resp Effort & Inspection: normal respiratory effort and able to speak in complete sentences Cardio Rate: regular rate Rhythm: regular rhythm GI Inspection: normal to inspection Palpation: soft Percussion: normal to percussion Back/Spine/Pelvis Sacrum: erythema, tenderness and other (stage IV savral wound appears larger than previous measurements 09/2021) Coccyx: other (no purulent drainage, no malodor, skin is tender and erythematous) Skin Wounds: wounds noted (sacrum as above) Neuro General: patient alert, patient awake and patient oriented x3 Results Last Vital Signs Temp 96.8 F L 12/08/21 05:27 Pulse 90 12/08/21 05:27 Resp 16 12/08/21 05:27 BP 137/67 12/08/21 05:27 Pulse Ox 100 12/08/21 05:27 Labs Result diagrams: 12/08/21 06:05 12/08/21 06:05 Labs: Laboratory Results - last 24 hr 12/07/21 12/07/21 12/07/21 20:45 20:45 20:45 WBC 10.46 RBC 2.94 L Hgb 9.8 L Hct 32.4 L MCV 110.2 H MCH 33.3 H MCHC 30.2 L RDW 24.7 H Plt Count 154 MPV 10.5 Immature Gran % 0.5 Neutrophils % 89.6 Lymphocytes % 2.5 Monocytes % 6.8 Eosinophils % 0.3 Basophils % 0.3 Nucleated RBC % 1 Absolute Neutrophils 9.38 H Absolute Lymphocytes 0.26 L Absolute Monocytes 0.71 Absolute Eosinophils 0.03 Absolute Basophils 0.03 RBC Morphology See Below Polychromasia Present Hypochromasia 1+ Poikilocytosis 1+ Anisocytosis 2+ Macrocytosis 2+ Sodium 139 Potassium 4.2 Chloride 100 Carbon Dioxide 34.2 H Anion Gap 4.8 BUN 22 H Creatinine 1.3 H Estimated GFR/1.73 m2 39.02 Glucose 108 H Calcium 9.6 Magnesium 2.4 Total Bilirubin 0.6 AST 24 ALT 38 Alkaline Phosphatase 79 Troponin I < 50 C-Reactive Protein 7.53 H Total Protein 6.3 L Albumin 3.5 Procalcitonin 0.1 Urine Color Urine Clarity Urine pH Ur Specific [place] Urine Protein Urine Ketones Urine Blood Urine Nitrite Urine Bilirubin Urine Urobilinogen Ur Leukocyte Esterase Urine Glucose COVID-19 Source SARS-CoV-2 (PCR) Influenza Type A (PCR) Influenza Type B (PCR) RSV (PCR) 12/07/21 12/07/21 12/08/21 21:08 21:30 06:05 WBC 7.96 RBC 2.62 L Hgb 8.8 L Hct 28.2 L MCV 107.6 H MCH 33.6 H MCHC 31.2 L RDW 24.5 H Plt Count 147 MPV 11.1 H Immature Gran % 0.3 Neutrophils % 84.7 Lymphocytes % 6.9 Monocytes % 8.0 Eosinophils % 0.0 Basophils % 0.1 Nucleated RBC % 0 Absolute Neutrophils 6.74 H Absolute Lymphocytes 0.55 L Absolute Monocytes 0.64 Absolute Eosinophils 0.00 Absolute Basophils 0.01 RBC Morphology See Below Polychromasia Present Hypochromasia 1+ Poikilocytosis Anisocytosis 2+ Macrocytosis 2+ Sodium Potassium Chloride Carbon Dioxide Anion Gap BUN Creatinine Estimated GFR/1.73 m2 Glucose Calcium Magnesium Total Bilirubin AST ALT Alkaline Phosphatase Troponin I C-Reactive Protein Total Protein Albumin Procalcitonin Urine Color Yellow Urine Clarity Clear Urine pH 7.0 Ur Specific [place] 1.020 Urine Protein Negative Urine Ketones Negative Urine Blood Negative Urine Nitrite Negative Urine Bilirubin Negative Urine Urobilinogen 0.2 Ur Leukocyte Esterase Negative Urine Glucose Negative COVID-19 Source Nasopharynx SARS-CoV-2 (PCR) Negative Influenza Type A (PCR) Negative Influenza Type B (PCR) Negative RSV (PCR) Negative
[2021-12-08] MEDS: Folic Acid 1 MG TAB PO (07:54)
[2021-12-08] MEDS: Methadone 5 MG TAB PO ×3 (07:54→20:43)
[2021-12-08] MEDS: Lactobacillus Acidophilus CAP 1 CAP PO ×3 (07:54→17:27)
[2021-12-08] MEDS: Multivitamin TAB 1 TAB PO (07:54)
[2021-12-08 07:55] VITALS: BP 114/61; PULSE 91; RESP 17; TEMP 36; O2SAT 99
[2021-12-08] MEDS: Ferrous Sulfate 325 MG TAB PO (07:55)
[2021-12-08] MEDS: predniSONE 10 MG TAB 20 MG PO (07:55)
[2021-12-08] MEDS: Gabapentin 300 MG CAP 600 MG PO ×2 (07:55→20:43)
[2021-12-08] MEDS: Albuterol HFA 8 GM 60 PUFF INH IH ×4 (08:43→20:43)
--- NOTE | 2021-12-08 10:22 | PT.INIE ---
PT Notes Visit Reasons: Hypoxia, Infected Sacral Decubitus Ulcer Inpatient Physical Therapy Evaluation Date: 12/08/21 Referring Doctor: Dr. Parker PT Orders: PT CONSULT: limited ability to ambulate Precautions: fall, standard Patient Profile/Admitting Diagnosis: Patient admitted for medical management of decubitus ulcer and osteomyelitis after presenting to ER with hypoxia. PMHX: Discharge planning issues (Acute) DVT prophylaxis (Acute) Cecal cancer (Acute) Hypoxic episode (Acute) Osteomyelitis of coccyx (Acute) Decubitus ulcer, stage 4 with infection (Acute) Mass of cecum (Acute) Lower GI bleeding (Acute) Decubitus ulcer of sacral area (Chronic) Ambulatory dysfunction (Acute) Diarrhea (Acute) Guaiac positive stools (Acute) Palliative care patient (Acute) UTI (urinary tract infection) (Acute) Dependent edema (Acute) GI bleed (Chronic) Descending aortic aneurysm (Chronic) 10/20/21: Ectatic aorta with saccular aneurysm descending aorta. Will have outpatient followup when possible Pneumonia (Acute) COPD (chronic obstructive pulmonary disease) (Chronic) Weakness (Acute) Exertional dyspnea (Acute) Ileus, unspecified (Acute) Elevated troponin (Acute) Indeterminate level Weakness (Acute) Thrush, oral (Acute) Atrial fibrillation (Chronic) Myasthenia gravis (Chronic) Receiving Plasmapheresis at [facility] Multifocal pneumonia (Acute) Pseudomonas pneumonia (Acute) Aspiration pneumonitis (Acute) Eating disorder (Acute) Debility (Acute) Sepsis (Acute) Hypokalemia (Acute) Social History/Home Situation: Patient lives with her son and [id number] in a private home with 3 steps to enter through the kitchen with a rail on 1 side. States that she is able to walk from her bedroom to the bathroom outside her room for about 30 feet using a 4WW. Although she had been able to walk short distances on her own, she now has family members assist her with all ambulation. She denies falls. Equipment Owned/DME: 4WW Subjective: Tanja states that she is not feeling herself. She's having trouble recalling what lead up to her admission, and states that she's having quite a bit of pain from her wound. She was able to get up to the chair with nursing this morning, and states that she felt like she was walking at her baseline. Objective: General Observation: Resting in recliner with pillows propping her onto her left side. Supplemental O2 via nasal cannula. Mental Status: Alert and oriented to person and place. Pain: intermittent pain in buttocks, able to relieve positionally ROM: Right Upper Extremity: Shoulder flexion 110 degrees. Elbow and wrist motion grossly WFL. Left Upper Extremity: Shoulder flexion 90 degrees. Elbow and wrist motion grossly WFL. Right Lower Extremity: WFL Left Lower Extremity: WFL Strength: Right Upper Extremity: Shoulder flexion 3-/5 bilat. Biceps 3/5 bilat. Triceps 3+/5 bilat. Left Upper Extremity: [place] flexion 3-/5 bilat. Biceps 3/5 bilat. Triceps 3+/5 bilat. Lower Extremities: unable to assess by MMT due to intolerance to sitting at edge of chair. Able to demonstrates active knee extension, ankle DF and hip flexion without difficulty. Bed Mobility/Transfers: scooting in chair: independent sit-stand: CGA stand - sit: CGA with max cues for safety Gait: Patient ambulates 10' with FWW, min A, with cues for FWW management. Balance: Static Sitting: good Dynamic Sitting: good Static Standing: fair Dynamic Standing: fair Special Tests: Mobility Limitations Standardized Measure [facility] AM-PAC 6 clicks Basic Mobility Inpatient Short Form: Raw Score: 17 CMS Score: 51% impairment Informed Consent/Education: Patient instructed in purpose of PT consult and plan of care. Instructed in UE AROM activities for completion between PT sessions. Assessment: Patient is an 86 year old female referred to physical therapy services with the diagnosis of limited ability to ambulate due to decubitus ulcer and osteomyelitis. Patient presents with clinical signs and symptoms consistent with mobility deficits related to acute on chronic medical issues, as demonstrated by the following impairment level findings: 1. Decreased tolerance to household distance ambulation 2. unable to ambulate independently 3. decreased functional strength of UEs and LEs 4. Pain with transfers due to decubitus ulcer Impairments are contributing to the following functional limitations: 1. Increased risk for falls 2. decreased safety and independence with short distance ambulation 3. decreased activity tolerance Patient is assessed as Moderate 52100 complexity based on the following: History: Patient is an 86-year-old female presenting with mobility impairments related to acute on chronic medical issues including decubitus ulcer, osteomyelitis, and myasthenia gravis. Patient has had excellent support at home, although sounds to be requiring more and more assistance. She will likely require rehabilitation in a SNF prior to returning home, versus transition to long-term care facility given her mobility presentation. Examination: Functional limitations as noted above Presentation: Evolving Decision Making: Moderate complexity Goals: Goals X1 week 1. Supine-Sit : Supervision 2. Sit-Supine: Supervision 3. Sit-Stand: CGA 4. Stand-Sit: CGA 5. Bed-Chair: CGA with FWW 6. Chair-Bed: CGA with FWW 7. Gait: CGA with FWW x25 feet Plan of Care/Treatment Plan: 1-2x/day, 7 days/week x 1 week. Plan of care has been reviewed with the HEALTH CARE TECHNICIAN providing the service under Physical Therapy direction. Initiate Physical Therapy intervention for strengthening, bed mobility, transfers, gait, stairs, balance training, use of assistive device. DISCHARGE RECOMMENDATIONS: SNF versus LTC based on ability to participate and progress TREATMENT CODE/TIME: 10:30-10:50 ([id number]) Shobha Adame, PT, DPT [facility]
[2021-12-08 11:45] VITALS: BP 127/64; PULSE 87; RESP 16; TEMP 36.3; O2SAT 99
[2021-12-08] MEDS: HYDROmorphone 2 MG TAB PO (12:09)
[2021-12-08 12:41] LABS: Lab Add On Test DONE
[2021-12-08] MEDS: PIPERACILLIN/TAZO 3.375 GM in Normal Saline 50 ML IVPB (14:39)
--- NOTE | 2021-12-08 15:18 | W.PM.PROGNOT ---
Date of Service Date of service: 12/08/21 Time of Service: 12:30 Assessment and Plan Assessment and plan (1) Cecal cancer: Start date: 12/08/21 Start time: 12:30 Status: Acute Assessment and plan: Being treated with radiation. Understands this is not curative. Understands if proceeds with surgery she will still not be cured. Spoke about being comfortable and hospice vs continuing with radiation and the path she is on. Pain management, etc. Patient was greatful, palliative consulted will see her tomorrow. (2) Decubitus ulcer, stage 4 with infection: Start date: 12/08/21 Start time: 12:30 Status: Ruled-out Assessment and plan: Surgery consulted and does not feel this infectious. Stop antibiotics follow surgical recommendations (see surgery note) Pain management Palliative consult (3) Osteomyelitis of coccyx: Start date: 12/08/21 Start time: 12:30 Status: Suspected Assessment and plan: Not known for sure. Would need to obtain MRI at this time will hold off until palliative see patient. (4) Hypoxic episode: Start date: 12/08/21 Start time: 12:30 Status: Resolved Assessment and plan: Has not had any episodes since admitted IS (5) Myasthenia gravis: Start date: 12/08/21 Start time: 12:30 Status: Chronic Assessment and plan: On weekly plasmophoresis treatms and soliris at [facility], usually gets treatments on Tuesdays. Also, on prednisone, which we will continue. If still here on Thursday, would consider transfer to [facility]. (6) DVT prophylaxis: Start date: 12/08/21 Start time: 12:30 Status: Acute Assessment and plan: SCDs due to h/o GI bleeding (7) Discharge planning issues: Start date: 12/08/21 Start time: 12:30 Status: Acute Assessment and plan: Full code, as above Consult Palliative Care discussed with Dr. Bell Subjective Subjective Patient reports: feels better Interval history since last seen: Sitting up in chair. no pain. Spoke about goals of care. She understands that her prognosis is poor and having surgery will not cure her cancer. We spoke about her options, hospice and being comfortable one of them. She was tearful but grateful for having someone tell her she had options, she then said she knows she will likely go for comfort. She has lost quite a bit of wt since last admission. Surgery was consulted and does not feel the wound is infected likely patient has radiation burn. Will stop antibiotics and continue medication for comfort and follow surgical recommendation. Exam Narrative Exam Narrative: General: Pleasant frail elderly female, looks weak and tired. Neurological: A&Ox3, no focal deficits Psychiatric: Appropriate speech pattern/content Skin: Stage IV Sacral decubitus wound with purulent drainage, noninfectious. likely radiation burn HEENT: Atraumatic,normocephalic, EOMI, MMM, clear oropharynx, no submandibular or cervical lymphadenopathy, no goiter or JVD Cardiovascular: RRR Lungs: CTAB Gastrointestinal: soft, nontender, nondistended Extremities: no edema, clubbing or cyanosis Objective Last Vital Signs Temp 36.3 C L 12/08/21 11:45 Pulse 87 12/08/21 11:45 Resp 16 12/08/21 11:45 BP 127/64 12/08/21 11:45 Pulse Ox 99 12/08/21 11:45 Laboratory Results - last 24 hr 12/07/21 12/07/21 12/07/21 20:45 20:45 20:45 WBC 10.46 RBC 2.94 L Hgb 9.8 L Hct 32.4 L MCV 110.2 H MCH 33.3 H MCHC 30.2 L RDW 24.7 H Plt Count 154 MPV 10.5 Immature Gran % 0.5 Neutrophils % 89.6 Lymphocytes % 2.5 Monocytes % 6.8 Eosinophils % 0.3 Basophils % 0.3 Nucleated RBC % 1 Absolute Neutrophils 9.38 H Absolute Lymphocytes 0.26 L Absolute Monocytes 0.71 Absolute Eosinophils 0.03 Absolute Basophils 0.03 RBC Morphology See Below Polychromasia Present Hypochromasia 1+ Poikilocytosis 1+ Anisocytosis 2+ Macrocytosis 2+ Sodium 139 Potassium 4.2 Chloride 100 Carbon Dioxide 34.2 H Anion Gap 4.8 BUN 22 H Creatinine 1.3 H Estimated GFR/1.73 m2 39.02 Glucose 108 H Calcium 9.6 Magnesium 2.4 Total Bilirubin 0.6 AST 24 ALT 38 Alkaline Phosphatase 79 Troponin I < 50 C-Reactive Protein 7.53 H Total Protein 6.3 L Albumin 3.5 Procalcitonin Urine Color Urine Clarity Urine pH Ur Specific [place] Urine Protein Urine Ketones Urine Blood Urine Nitrite Urine Bilirubin Urine Urobilinogen Ur Leukocyte Esterase Urine Glucose COVID-19 Source SARS-CoV-2 (PCR) Influenza Type A (PCR) Influenza Type B (PCR) RSV (PCR) Add-On Test Request DONE 12/07/21 12/07/21 12/07/21 20:45 21:08 21:30 WBC RBC Hgb Hct MCV MCH MCHC RDW Plt Count MPV Immature Gran % Neutrophils % Lymphocytes % Monocytes % Eosinophils % Basophils % Nucleated RBC % Absolute Neutrophils Absolute Lymphocytes Absolute Monocytes Absolute Eosinophils Absolute Basophils RBC Morphology Polychromasia Hypochromasia Poikilocytosis Anisocytosis Macrocytosis Sodium Potassium Chloride Carbon Dioxide Anion Gap BUN Creatinine Estimated GFR/1.73 m2 Glucose Calcium Magnesium Total Bilirubin AST ALT Alkaline Phosphatase Troponin I C-Reactive Protein Total Protein Albumin Procalcitonin 0.1 Urine Color Yellow Urine Clarity Clear Urine pH 7.0 Ur Specific [place] 1.020 Urine Protein Negative Urine Ketones Negative Urine Blood Negative Urine Nitrite Negative Urine Bilirubin Negative Urine Urobilinogen 0.2 Ur Leukocyte Esterase Negative Urine Glucose Negative COVID-19 Source Nasopharynx SARS-CoV-2 (PCR) Negative Influenza Type A (PCR) Negative Influenza Type B (PCR) Negative RSV (PCR) Negative Add-On Test Request 12/08/21 12/08/21 06:05 06:05 WBC 7.96 RBC 2.62 L Hgb 8.8 L Hct 28.2 L MCV 107.6 H MCH 33.6 H MCHC 31.2 L RDW 24.5 H Plt Count 147 MPV 11.1 H Immature Gran % 0.3 Neutrophils % 84.7 Lymphocytes % 6.9 Monocytes % 8.0 Eosinophils % 0.0 Basophils % 0.1 Nucleated RBC % 0 Absolute Neutrophils 6.74 H Absolute Lymphocytes 0.55 L Absolute Monocytes 0.64 Absolute Eosinophils 0.00 Absolute Basophils 0.01 RBC Morphology See Below Polychromasia Present Hypochromasia 1+ Poikilocytosis Anisocytosis 2+ Macrocytosis 2+ Sodium 139 Potassium 5.7 H D Chloride 102 Carbon Dioxide 35.6 H Anion Gap 1.4 L BUN 21 H Creatinine 1.2 H Estimated GFR/1.73 m2 42.80 Glucose 91 Calcium 9.1 Magnesium 2.2 Total Bilirubin AST ALT Alkaline Phosphatase Troponin I C-Reactive Protein 9.95 H Total Protein Albumin Procalcitonin Urine Color Urine Clarity Urine pH Ur Specific [place] Urine Protein Urine Ketones Urine Blood Urine Nitrite Urine Bilirubin Urine Urobilinogen Ur Leukocyte Esterase Urine Glucose COVID-19 Source SARS-CoV-2 (PCR) Influenza Type A (PCR) Influenza Type B (PCR) RSV (PCR) Add-On Test Request PAWSS Have you Been Recently Intoxicated or Drunk Within the Last 30 days?: No Have you Ever Experienced Previous Episodes of Alcohol Withdrawal?: No Have you ever Experienced Withdrawal Seizures?: No Have you ever Experienced Delirium Tremens(DT)s?: No Have you ever undergone Alcohol Rehabilitation Treatment (i.e, inpt ot outpatient treatment programs)?: No Have you ever Experienced Blackouts?: No Have you ever Combined Alcohol with other Downers within the last 90 days?: No Have you ever Combined Alcohol with any other Substance of Abuse during the last 90 days?: No Result: 0
[2021-12-08 15:38] VITALS: BP 127/65; PULSE 83; RESP 16; TEMP 36; O2SAT 100
--- NOTE | 2021-12-08 16:20 | INITIAL_ITS ---
- If Service Date Differs Date of service: 12/08/21 Time of Service: 16:25 Care Management Initial Assess PAST MEDICAL HISTORY/PAST SURGICAL HISTORY:: Aspiration pneumonia. B12 deficiency. Cardiomyopathy. Echo 12/10/2018: EF 60-65%, up from 35% previously; does have diastolic dysfunction. Chronic constipation. Chronic insomnia. Chronic pain. on methadone therapy. Compression fracture of spine. Depression. Dysphagia. 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 Lum bago. Macrocytic anemia. Malnutrition. Osteoporosis. Peripheral neuropathic pain. Post herpetic neuralgia. Sacral decubitus ulcer, stage IV. Surgical History . Abdominal fistula (08/17/18). repair by Dr Elizalde. AV fistula. RUE. Gastrostomy complication (08/17/18). gastric enteric fistula repair by Dr Elizalde. Gastrostomy infection (08/10/18). Dr Elizalde, excised tissue at old g-tube site and closed g-tube tract surgically. Gastrostomy Tube Placement. H/O wisdom tooth extraction. S/P appendectomy PREVIOUS FUNCTIONAL STATUS/SOCIAL/FAMILY SUPPORTS:: Tanja lives in [place] with her son, Frankie, and [id number], Werner. Tanja has three additional children: one son in [place], one in [place], and a daughter in [place]. 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 Tanja reports she is independent with her medications and her family helps her with bathing, dressing, and meal preparation. She does not drive and relies on [facility] and family for transportation to appointments. CURRENT FUNCTIONAL STATUS:: Per ZENON Biswas Tanja is considering transitioning to comfort care, she will discuss with Dr. Jose tomorrow morning. [facility]'s Tanja reports hospice was discussed with Tanja prior to [facility] admission and she was not interested at that time. CM continues to follow. ADVANCE DIRECTIVES:: On file at [facility]. Son Frankie ZAMORA Has patient been provided with info about the portal/API?: Yes Did the patient sign up for the portal?: No CODE STATUS:: Full Code INSURANCE COVERAGE / FINANCIAL ISSUES:: Medicare. BS CURRENT HOME/COMMUNITY SERVICES/EQUIPMENT:: Tanja has Home Health nursing and PT services and she sees a neurologist at [facility]. She utilizes a walker to ambulate at home and has a shower seat. PRIMARY CARE PHYSICIAN:: Maribell Choi MD POTENTIAL DISCHARGE NEEDS:: Follow up appointment with PCP. PATIENT/FAMILY EDUCATION NEEDS:: Discharge instructions, limitations, and follow up plan of care, including Ask Me Three and self management. ANTICIPATED BARRIERS TO DISCHARGE:: None identified. TRANSPORTATION:: To be determined by disposition PLAN:: Tanja will meet with Dr. Jose tomorrow morning to discuss her goals of care. CM will continue to follow and support Tanja's wishes in regard to treatement goals and discharge planning.
[2021-12-08 19:40] VITALS: BP 128/68; PULSE 83; RESP 16; TEMP 36.5; O2SAT 100
[2021-12-08] MEDS: Collagenase 30 GM TUBE TP (20:47)
[2021-12-09 01:24] VITALS: BP 119/73; PULSE 80; RESP 18; TEMP 36.3; O2SAT 97
[2021-12-09] MEDS: HYDROmorphone 2 MG TAB PO (07:00)
[2021-12-09 07:31] LABS: Abs Immature Grans 0.03 10^3/uL (0.0-0.06); Absolute Basophil Count 0.02 10^3/uL (0.0-0.2); Absolute Lymphocyte Count 0.79 10^3/uL (1.2-3.4); Absolute Monocyte Count 0.68 10^3/uL (0.1-0.8); Absolute Neutrophil Count 6.11 10^3/uL (1.2-6.7); Basophils % 0.3; Eosinophils % 1.3; HCT 30.8 % (36.0-46.0); HGB 9.4 g/dL (11.2-15.7); Immature Grans % 0.4; Lymphocytes % 10.2; MCH 33.5 pg (27.0-33.0); MCHC 30.5 % (32.0-36.0); MCV 109.6 fL (80-95); MPV 10.2 fL (8.0-11.0); Monocytes % 8.8; Nucleated RBC 0 %; Platelet Count 150 10^3/uL (130-400); RBC 2.81 10^6/uL (3.93-5.22); RDW 23.7 % (11.7-14.6); RDW-SD 93.1 fL; WBC 7.73 10^3/uL (4.4-10.8)
[2021-12-09 07:41] LABS: Anisocytosis 2+; Diff Comment RBC Morph Reviewed
[2021-12-09 07:42] LABS: Macrocytosis 2+
[2021-12-09 07:44] LABS: Anion Gap 7.2 mmol/L (3-11); BUN 19 mg/dL (7-18); CO2 32.8 mmol/L (21.0-32.0); CREATININE 1.3 mg/dL (0.55-1.02); Calcium 9.7 mg/dL (8.5-10.1); Chloride 100 mmol/L (98-107); Estimated GFR 39.02 (mL/min/1.73m2); Glucose 65 mg/dL (74-106); Sodium 140 mmol/L (136-145)
[2021-12-09 07:45] LABS: Potassium 4.2 mmol/L (3.5-5.1)
[2021-12-09] MEDS: Albuterol HFA 8 GM 60 PUFF INH IH ×3 (07:52→15:26)
[2021-12-09 08:02] VITALS: BP 106/60; PULSE 78; RESP 17; TEMP 35.8; O2SAT 92
--- NOTE | 2021-12-09 08:06 | W.PM.PROGNOT ---
Date of Service Date of service: 12/09/21 Time of Service: 08:06 Assessment and Plan Assessment and plan (1) Decubitus ulcer of sacral area: Status: Chronic Assessment and plan: Will be available if need to assist with wound care/dressing. Did not observe the wound given she had recently transferred to the chair. -Cleanse with Santyl and twice daily dressing changes x 1 week. -Discussed frequent repositioning with patient at least every two hours for offloading. 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 -Would recommend air mattress if possible -Pain control for comfort -Needs to continue retirement follow up with wound care -If clinical suspicion remains high for possibility of osteomyelitis would then recommend obtaining an MRI pelvis if the patient is able to tolerate it Qualifiers: Pressure injury stage: stage 4 Qualified Code(s): L89.154 - Pressure ulcer of sacral region, stage 4 Subjective Subjective Interval history since last seen: Arrived with patient sitting up in the chair. She reports that her decubitus ulcer is quiet painful, but she has been trying to reposition frequently. Exam Const General: cooperative, healthy appearing and comfortable Orientation: alert and oriented x3 Resp Effort & Inspection: normal respiratory effort, no audible wheezes and no cough Objective Last Vital Signs Temp 36.3 C L 12/09/21 01:24 Pulse 80 12/09/21 01:24 Resp 18 12/09/21 01:24 BP 119/73 12/09/21 01:24 Pulse Ox 97 12/09/21 01:24 Laboratory Results - last 24 hr 12/07/21 12/09/21 12/09/21 20:45 07:00 07:00 WBC 7.73 RBC 2.81 L Hgb 9.4 L Hct 30.8 L MCV 109.6 H MCH 33.5 H MCHC 30.5 L RDW 23.7 H Plt Count 150 MPV 10.2 Immature Gran % 0.4 Neutrophils % 79.0 Lymphocytes % 10.2 Monocytes % 8.8 Eosinophils % 1.3 Basophils % 0.3 Nucleated RBC % 0 Absolute Neutrophils 6.11 Absolute Lymphocytes 0.79 L Absolute Monocytes 0.68 Absolute Eosinophils 0.10 Absolute Basophils 0.02 RBC Morphology See Below Anisocytosis 2+ Macrocytosis 2+ Sodium 140 Potassium 4.2 D Chloride 100 Carbon Dioxide 32.8 H Anion Gap 7.2 BUN 19 H Creatinine 1.3 H Estimated GFR/1.73 m2 39.02 Glucose 65 L Calcium 9.7 Add-On Test Request DONE PAWSS Have you Been Recently Intoxicated or Drunk Within the Last 30 days?: No Have you Ever Experienced Previous Episodes of Alcohol Withdrawal?: No Have you ever Experienced Withdrawal Seizures?: No Have you ever Experienced Delirium Tremens(DT)s?: No Have you ever undergone Alcohol Rehabilitation Treatment (i.e, inpt ot outpatient treatment programs)?: No Have you ever Experienced Blackouts?: No Have you ever Combined Alcohol with other Downers within the last 90 days?: No Have you ever Combined Alcohol with any other Substance of Abuse during the last 90 days?: No Result: 0
[2021-12-09] MEDS: Collagenase 30 GM TUBE TP ×2 (09:20→20:50)
[2021-12-09] MEDS: Ferrous Sulfate 325 MG TAB PO (09:21)
[2021-12-09] MEDS: Multivitamin TAB 1 TAB PO (09:21)
[2021-12-09] MEDS: Folic Acid 1 MG TAB PO (09:21)
[2021-12-09] MEDS: Lactobacillus Acidophilus CAP 1 CAP PO ×3 (09:21→15:26)
[2021-12-09] MEDS: Gabapentin 300 MG CAP 600 MG PO (09:21)
[2021-12-09] MEDS: predniSONE 10 MG TAB 20 MG PO (09:21)
[2021-12-09] MEDS: Methadone 5 MG TAB PO (09:21)
[2021-12-09] MEDS: Ergocalciferol 50000 UNITS CAP PO (09:31)
--- NOTE | 2021-12-09 10:08 | W.PALLCONSUL ---
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 I had first met her about a month ago and at that time she felt certain that she wanted treatment, she wanted to be a full code, and was transferred to [facility]. Since that time she underwent evaluation and was found that she had a probable terminal cancer, and was offered palliative treatment. She ended up going home. It was very difficult at home because of the amount of care that she took. Her pain escalated and she came back to [facility]. She is very very happy to be at [facility] and stated that she gets excellent care here and really missed it while she was at [facility]. I am here today to again discuss goals of care and CODE STATUS. Tanja herself states that she thinks it probably is time for hospice. She finds it very difficult to consider going back to her son's house as she feels that it was hard for them to care for her. 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 She states that she does not want to come back to the hospital if she is at home she does not want antibiotics and I do not do well with her she does not want tube feedings or IVs. She is willing to have a hospice consult. She signed the appropriate forms. Hospice consult was ordered She was very concerned that her family could not take care of her. Because of this she wanted to know where she could go other than home so that she could be well taken care of and also comfortable During the interim hospitalist team did talk with Tanja. She was not comfortable and did agree to a morphine pump. This was started. I will follow-up with her this evening Review of Systems Narrative: Pain continues to be fairly severe despite pain medication PFSH All Active Problems (Updated 12/08/21 @ 15:27 by Ana Foulke, PORTABLE TRACK CREW CHIEF) Discharge planning issues (Acute) DVT prophylaxis (Acute) Cecal cancer (Acute) Mass of cecum (Acute) Lower GI bleeding (Acute) Decubitus ulcer of sacral area (Chronic) Ambulatory dysfunction (Acute) Diarrhea (Acute) Guaiac positive stools (Acute) Palliative care patient (Acute) UTI (urinary tract infection) (Acute) Dependent edema (Acute) GI bleed (Chronic) Descending aortic aneurysm (Chronic) 10/20/21: Ectatic aorta with saccular aneurysm descending aorta. Will have outpatient followup when possible Pneumonia (Acute) COPD (chronic obstructive pulmonary disease) (Chronic) Weakness (Acute) Exertional dyspnea (Acute) Ileus, unspecified (Acute) Elevated troponin (Acute) Indeterminate level Weakness (Acute) Thrush, oral (Acute) Atrial fibrillation (Chronic) Myasthenia gravis (Chronic) Receiving Plasmapheresis at [facility] Multifocal pneumonia (Acute) Pseudomonas pneumonia (Acute) Aspiration pneumonitis (Acute) Eating disorder (Acute) Debility (Acute) Sepsis (Acute) Hypokalemia (Acute) Medical History Aspiration pneumonia B12 deficiency Cardiomyopathy Echo 12/10/2018: EF 60-65%, up from 35% previously; does have diastolic dysfunction Chronic constipation Chronic insomnia Chronic pain on methadone therapy Compression fracture of spine Depression Dysphagia 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 Gastrostomy Tube Placement H/O wisdom tooth extraction S/P appendectomy Family History Father Heart disease Mother Cancer pancreatic Social History Smoking/Tobacco Use Status: Never Smoking risk assessment performed?: Yes Alcohol Intake: current Alcohol Intake frequency: a few times a week Alcohol type: hard liquor Drug use: Never Substance use type: does not use Do you feel safe at home: Yes Do you feel safe in your relationship?: Yes Additional Social history: live with son and his family Exam Narrative Exam Narrative: She is sitting in her chair. She looks me in the eye. She is listening to podcasts prior to me coming in. She remembers me from our past meetings Resp Effort & Inspection: normal respiratory effort and able to speak in complete sentences Auscultation: clear to auscultation bilaterally Cardio Rate: regular rate Rhythm: regular rhythm Results Last Vital Signs Temp 96.4 F L 12/09/21 08:02 Pulse 78 12/09/21 08:02 Resp 17 12/09/21 08:02 BP 106/60 12/09/21 08:02 Pulse Ox 92 12/09/21 08:02 Labs Result diagrams: 12/09/21 07:00 12/09/21 07:00 Labs: Laboratory Results - last 24 hr 12/07/21 12/09/21 12/09/21 20:45 07:00 07:00 WBC 7.73 RBC 2.81 L Hgb 9.4 L Hct 30.8 L MCV 109.6 H MCH 33.5 H MCHC 30.5 L RDW 23.7 H Plt Count 150 MPV 10.2 Immature Gran % 0.4 Neutrophils % 79.0 Lymphocytes % 10.2 Monocytes % 8.8 Eosinophils % 1.3 Basophils % 0.3 Nucleated RBC % 0 Absolute Neutrophils 6.11 Absolute Lymphocytes 0.79 L Absolute Monocytes 0.68 Absolute Eosinophils 0.10 Absolute Basophils 0.02 RBC Morphology See Below Anisocytosis 2+ Macrocytosis 2+ Sodium 140 Potassium 4.2 D Chloride 100 Carbon Dioxide 32.8 H Anion Gap 7.2 BUN 19 H Creatinine 1.3 H Estimated GFR/1.73 m2 39.02 Glucose 65 L Calcium 9.7 Add-On Test Request DONE
[2021-12-09] MEDS: Senna TAB 1 TAB PO (14:14)
--- NOTE | 2021-12-09 15:29 | W.PM.PROGNOT ---
Date of Service Date of service: 12/09/21 Time of Service: 12:00 Assessment and Plan Assessment and plan (1) Cecal cancer: Start date: 12/09/21 Start time: 12:00 Status: Acute Assessment and plan: Patient has decided to go on hospice, Did place CAD pump on today for better pain management. Transition to hospice tomorrow. Understands this is not curative. Understands if proceeds with surgery she will still not be cured. Just trying to figure out where to go from hospital. (2) Decubitus ulcer, stage 4 with infection: Start date: 12/09/21 Start time: 12:00 Status: Ruled-out Assessment and plan: Surgery consulted and does not feel this infectious. Stop antibiotics follow surgical recommendations (see surgery note) Pain management Palliative consult Surgery signed off (3) Osteomyelitis of coccyx: Start date: 12/09/21 Start time: 12:00 Status: Suspected Assessment and plan: Not known for sure. Will not proceed further as patient is palliative (4) Hypoxic episode: Start date: 12/09/21 Start time: 12:00 Status: Resolved Assessment and plan: Has not had any episodes since admitted IS (5) Myasthenia gravis: Start date: 12/09/21 Start time: 12:00 Status: Chronic Assessment and plan: As above has decided to go on hospice. Will transition to hospice tomorrow. (6) DVT prophylaxis: Start date: 12/09/21 Start time: 12:00 Status: Acute Assessment and plan: SCDs due to h/o GI bleeding (7) Discharge planning issues: Start date: 12/09/21 Start time: 12:00 Status: Acute Assessment and plan: Full code, as above Consult Palliative Care discussed with Dr. Bell Subjective Subjective Patient reports: other Interval history since last seen: Patient has decided to go home on hospice. She has also decided to go on a CAD pump for pain as she is always in pain. Just helping her take her jacket off caused her severe pain. I explained to her having this pump will give her continuos relief and she can give herself extra doses of pain medication if she needs it in between the continuous. She said she liked the idea of not being in pain and agreed to the pump. She wanted to talk to her kids about where to go with hospice. She is being transitioned tomorrow. Hospice consult placed. Exam Narrative Exam Narrative: General: Pleasant frail elderly female, looks weak and tired. Neurological: A&Ox3, no focal deficits Psychiatric: Appropriate speech pattern/content Skin: Stage IV Sacral decubitus wound with purulent drainage, noninfectious. likely radiation burn, multiple bruises to multiple areas of arms and legs HEENT: Atraumatic,normocephalic, EOMI, MMM, clear oropharynx, no submandibular or cervical lymphadenopathy, no goiter or JVD Cardiovascular: RRR Lungs: CTAB Gastrointestinal: soft, nontender, nondistended Extremities: no edema, clubbing or cyanosis Objective Last Vital Signs Temp 35.8 C L 12/09/21 08:02 Pulse 78 12/09/21 08:02 Resp 17 12/09/21 08:02 BP 106/60 12/09/21 08:02 Pulse Ox 92 12/09/21 08:02 Laboratory Results - last 24 hr 12/09/21 12/09/21 07:00 07:00 WBC 7.73 RBC 2.81 L Hgb 9.4 L Hct 30.8 L MCV 109.6 H MCH 33.5 H MCHC 30.5 L RDW 23.7 H Plt Count 150 MPV 10.2 Immature Gran % 0.4 Neutrophils % 79.0 Lymphocytes % 10.2 Monocytes % 8.8 Eosinophils % 1.3 Basophils % 0.3 Nucleated RBC % 0 Absolute Neutrophils 6.11 Absolute Lymphocytes 0.79 L Absolute Monocytes 0.68 Absolute Eosinophils 0.10 Absolute Basophils 0.02 RBC Morphology See Below Anisocytosis 2+ Macrocytosis 2+ Sodium 140 Potassium 4.2 D Chloride 100 Carbon Dioxide 32.8 H Anion Gap 7.2 BUN 19 H Creatinine 1.3 H Estimated GFR/1.73 m2 39.02 Glucose 65 L Calcium 9.7 PAWSS Have you Been Recently Intoxicated or Drunk Within the Last 30 days?: No Have you Ever Experienced Previous Episodes of Alcohol Withdrawal?: No Have you ever Experienced Withdrawal Seizures?: No Have you ever Experienced Delirium Tremens(DT)s?: No Have you ever undergone Alcohol Rehabilitation Treatment (i.e, inpt ot outpatient treatment programs)?: No Have you ever Experienced Blackouts?: No Have you ever Combined Alcohol with other Downers within the last 90 days?: No Have you ever Combined Alcohol with any other Substance of Abuse during the last 90 days?: No Result: 0
[2021-12-09 15:49] VITALS: BP 123/62; PULSE 86; RESP 12; TEMP 36.3; O2SAT 91
--- NOTE | 2021-12-09 17:03 | PDOC.CMPRO ---
Care Management Progress Note S/O: Tanja was lying in bed when CM met with her. She reported not wanting to leave her son with any bills; CM reviewed medical necessity and insurance coverage, Tanja reported she had not received a bill from [facility] prior, she was just a first class worrier. She appeared tired, likely because she started on a morphine pump today due to ongoing pain. CM continues to follow. A: 86 year old female admitted to [facility] 12/07/21 for hypoxia, infected sacral decubitus ulcer P: Tanja has a scheduled Hospice consult with AVANI Agustin at [facility] tomorrow morning @ 11:00. CM will continue to follow and support Tanja's wishes in regard to treatment goals and discharge planning.
[2021-12-09 23:50] VITALS: BP 97/62; PULSE 79; RESP 16; TEMP 36.4; O2SAT 88; O2SAT 92
--- NOTE | 2021-12-10 08:49 | CMPROGNOTE_ITS ---
- If Service Date Differs Date of service: 12/10/21 Time of Service: 08:49 Care Management Progress Note S/O: Tanja was lying in bed when CM met with her. She had been started on a morphine infusion via CADD pump last evening and was no longer responding to verbal stimuli. There had been a plan to transition Tanja to hospice today, however she was made comfort measures instead. Tanja peacefully this afternoon shortly after 3 pm with her family by her side. A: 86 year old female admitted to [facility] 12/07/21 for hypoxia, infected sacral decubitus ulcer P: Tanja was changed to comfort measure this morning and peacefully this afternoon with her family by her side..
[2021-12-10 08:51] VITALS: BP 107/66; PULSE 78; RESP 5; TEMP 35.9; O2SAT 97
[2021-12-10] MEDS: Collagenase 30 GM TUBE TP (09:59)
[2021-12-10] MEDS: Scopolamine 1 MG/3 DAYS PATCH TD (11:48)
--- NOTE | 2021-12-10 12:45 | W.PALPGNOTE ---
Date of service: 12/10/21 Assessment and Plan Assessment and plan (1) Comfort measures only status: Status: Acute Assessment and plan: Being well managed by hospitalist Ana Page. Orders for medications already in; encouraged nurses to administer atropine as needed. See no role for rectal tylenol at this time. Removal of some layers of blankets and cool cloth should be enough to keep her comfortable. (2) Cecal cancer: Status: Acute Assessment and plan: This will be the cause of her . (3) Dying care: Status: Acute Assessment and plan: Very comfortable once drops given and cool cloth applied, per nursing. Note that Tanja at 15:10, just a few hours after my visit with her. (4) Excessive oral secretions: Status: Acute Assessment and plan: Atropine to be given. (5) Weakness: Status: Acute Assessment and plan: Part of her terminal illness and dying process. Subjective Subjective Patient reports: fever Interval history since last seen: Nurses asked me to see Tanja has she was having upper airway secretions and a terminal fever. She doesn't have IV access, and cannot swallow, so given this I suggested she have atropine drops to help control her secretions. I peeled back most of her blankets to help with her fever and suggested the LNAs place a cool cloth on her forehead for comfort. Exam Narrative Exam Narrative: Elderly female. Unresponsive. She does have rattling sounds to her lungs. needs to be medicated for secretions. Otherwise appears comfortable. Skin hot to the touch. Not responsive to name or tactile stimulation. No grimace. No furrowed brow. No moan. On subcutaneous hydromorphone for pain control at 0.2 mg/hr. No need for boluses at this time. Objective Last Vital Signs Temp 96.7 F L 12/10/21 08:51 Pulse 78 12/10/21 08:51 Resp 5 L 12/10/21 08:51 BP 107/66 12/10/21 08:51 Pulse Ox 97 12/10/21 08:51
--- NOTE | 2021-12-10 14:30 | PGE_ITS ---
Date of Service Date of service: 12/10/21 Time of Service: 12:00 Assessment and Plan Assessment and plan (1) Comfort measures only status: Start date: 12/10/21 Start time: 12:00 Status: Acute Assessment and plan: Patient went unresponsive this am around 1030/11. She appears comfortable. She does have some rattling. Needs to be medicated for secretions. 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 She was suppose to transition to hospice, but will now stay here on cm. (2) Cecal cancer: Start date: 12/10/21 Start time: 14:36 Status: Acute Assessment and plan: No curative, decided to go hospice. as above discussed with Dr. Bell Subjective Subjective Patient reports: other Interval history since last seen: Placed on CAD pump yesterday. 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 Warren placed. She appeared comfortable except rattling, medications ordered for secretions. Family notified. Exam Narrative Exam Narrative: Elderly female. Unresponsive. She does have rattling sounds to her lungs. needs to be medicated for secretions. Otherwise appears comfortable. Skin covered by blanket. Not responsive to name or tactile stimulation. 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 Objective Last Vital Signs Temp 35.9 C L 12/10/21 08:51 Pulse 78 12/10/21 08:51 Resp 5 L 12/10/21 08:51 BP 107/66 12/10/21 08:51 Pulse Ox 97 12/10/21 08:51 PAWSS Have you Been Recently Intoxicated or Drunk Within the Last 30 days?: No Have you Ever Experienced Previous Episodes of Alcohol Withdrawal?: No Have you ever Experienced Withdrawal Seizures?: No Have you ever Experienced Delirium Tremens(DT)s?: No Have you ever undergone Alcohol Rehabilitation Treatment (i.e, inpt ot outpatient treatment programs)?: No Have you ever Experienced Blackouts?: No Have you ever Combined Alcohol with other Downers within the last 90 days?: No Have you ever Combined Alcohol with any other Substance of Abuse during the last 90 days?: No Result: 0
[2021-12-10] MEDS: Glycopyrrolate 0.2 MG/1 ML VIAL IVP (14:34)
[2021-12-10] MEDS: LORazepam 2 MG/ML VIAL IV/SC (14:34)
--- NOTE | 2021-12-10 16:54 | CHAPLAIN ---
I spent some time with Tanja this morning for a couple of visits. She was unresponsive. I sat with her and read poems to her. In the afternoon her son and daughter in law, with whom she lives, were here and another son, traveling from [place] was expected soon. Her daughter in law asked good questions about what to expect as Tanja was actively dying. Tanja is a longtime [employer] and attends [employer]. I've gotten to know her from that meeting and from her previous admissions.
--- NOTE | 2021-12-10 17:37 | EXPE_ITS ---
Date of service: 12/10/21 Time of Service: 15:30 Discharge Sum: Prov Provider Primary care physician: Maribell Choi Admitting clinician: Ana Page Attending physician on admission: Shreya Parker Consults: 12/08/21 09:17 Palliative Care Consult [CONS] Routine Consultation Status:: Contact made by MD Clarification:: Manage/follow per spec. Reason for consult:: Cecal cancer, Goals of care Pronouncing clinician: Ana Page Discharge Sum: Diag PCOD Cause of : Rectal mass Contributing Factors (1) Cecal cancer: Contributing factors: Patient had cecal cancer, receiving radiation, refused surgery, was told that surgery could be done but would not be curative, she decided to go on hospice. discussed with Dr. Bell Discharge Sum: Summary Date and Time Admission Date: 12/08/2200/15/22 23:12 Date of : 12/10/21 Time of : 15:10 Summary Details: 86 year old female, well known to our service, who has a PMHx of Myasthenia gravis, on weekly plasmaphoresis and soliris at [facility], as well as h/o cecal cancer being treated with radiation, a sacral decubitus ulcer infection with osteomyelitis of underlying bone, having just completed two weeks of antibiotics at [facility], which were not thought to be curative, and h/o GI bleeding, who presented to [facility] ED today after being noted to be pale and hypoxic at home by a home health nurse. Unfortunately, more precise information is not available at this time. The patient was saturating 100% on 1L of O2 in our ED. PE was ruled out with a negative CTA. There is a concern that, perhaps her hypoxia has to do with her being on methadone and dilaudid at home. On her assessment in the ED, her sacral decubitus ulcer was felt to be infected. Surgery evaluated wound and felt it was not infected and did not need debridement. Patient need off loading and santyl. wound recommendations were placed. Palliative consult was placed. I spoke to patient about goals of care. She understood that her prognosis was poor and having surgery would not cure her cancer. We spoke about her options, hospice and being comfortable one of them. She was tearful but grateful for having someone tell her she had options, she then said she knows she will likely go for comfort. She has lost quite a bit of wt since last admission. The next day palliative met with her and she decided to go on hospice. She was in severe pain despite being on oral methadone and dilaudid so I suggested a CAD pump, she liked the idea of not being in pain and agreed that would be nice. Pump was initiated with palliative involved. She was to transition to hospice today when she went unresponsive around 1030. She was then made comfort measures. At 1510 she and at 1516 TOD was called. Additional Data Confirmation of as documented by pronouncing clinician: no pulse, no respirations, no heart sounds and pupils fixed and dilated Attending Physician: Shreya Holguin Was code activated?: No Autopsy requested?: No Hospice patient?: Yes
--- NOTE | 2021-12-12 08:50 | PT.INDS ---
Date of service: 12/12/21 PT Notes Visit Reasons: Hypoxia, Infected Sacral Decubitus Ulcer Physical Therapy Inpatient Discharge Summary Date: 12/12/21 Referring Doctor: Dr. Parker PT Orders: PT CONSULT: limited ability to ambulate Precautions: fall, standard Patient Profile/Admitting Diagnosis: Patient was admitted for medical management of decubitus ulcer and osteomyelitis after presenting to ER with hypoxia. PMHX: Discharge planning issues (Acute) DVT prophylaxis (Acute) Cecal cancer (Acute) Hypoxic episode (Acute) Osteomyelitis of coccyx (Acute) Decubitus ulcer, stage 4 with infection (Acute) Mass of cecum (Acute) Lower GI bleeding (Acute) Decubitus ulcer of sacral area (Chronic) Ambulatory dysfunction (Acute) Diarrhea (Acute) Guaiac positive stools (Acute) Palliative care patient (Acute) UTI (urinary tract infection) (Acute) Dependent edema (Acute) GI bleed (Chronic) Descending aortic aneurysm (Chronic) 10/20/21: Ectatic aorta with saccular aneurysm descending aorta. Will have outpatient followup when possible Pneumonia (Acute) COPD (chronic obstructive pulmonary disease) (Chronic) Weakness (Acute) Exertional dyspnea (Acute) Ileus, unspecified (Acute) Elevated troponin (Acute) Indeterminate level Weakness (Acute) Thrush, oral (Acute) Atrial fibrillation (Chronic) Myasthenia gravis (Chronic) Receiving Plasmapheresis at [facility] Multifocal pneumonia (Acute) Pseudomonas pneumonia (Acute) Aspiration pneumonitis (Acute) Eating disorder (Acute) Debility (Acute) Sepsis (Acute) Hypokalemia (Acute) Social History/Home Situation: Patient lives with her son and [id number] in a private home with 3 steps to enter through the kitchen with a rail on 1 side. States that she is able to walk from her bedroom to the bathroom outside her room for about 30 feet using a 4WW. Although she had been able to walk short distances on her own, she now has family members assist her with all ambulation. She denies falls. Equipment Owned/DME: 4[employer] Subjective: NT. See most recent [employer]NICIAN notes. Objective: General Observation: NT. See most recent [employer] TECHNICIAN notes. Mental Status: NT. See most recent [employer] TECHNICIAN notes. Pain: NT. See most recent [employer] TECHNICIAN notes. ROM: Right Upper Extremity: Shoulder flexion 110 degrees. Elbow and wrist motion grossly WFL. Left Upper Extremity: Shoulder flexion 90 degrees. Elbow and wrist motion grossly WFL. Right Lower Extremity: WFL Left Lower Extremity: WFL Strength: Right Upper Extremity: Shoulder flexion 3-/5 bilat. Biceps 3/5 bilat. Triceps 3+/5 bilat. Left Upper Extremity: Shoudler flexion 3-/5 bilat. Biceps 3/5 bilat. Triceps 3+/5 bilat. Lower Extremities: unable to assess by MMT due to intolerance to sitting at edge of chair. Able to demonstrates active knee extension, ankle DF and hip flexion without difficulty. Bed Mobility/Transfers: N/A. Patient . Gait: N/A. Patient . Balance: N/A. Patient . Special Tests: N/A. Patient . Informed Consent/Education: N/A. Patient . Assessment: N/A. Patient . Goals: N/A. Patient . DISCHARGE RECOMMENDATIONS: N/A. Patient . TREATMENT CODE/TIME: NE Thank you for the opportunity to participate in the care of this patient. Anamika Miner PT, DPT, CLT [facility] [place], [place]
== END 2021-12-10 15:16 | disposition expired | DRG 374 ==
LOC: ER 23:18 → MS 12-08 00:24
PROVIDERS: Nurse Practitioner Family; Admitting Provider Internal Medicine; Emergency Provider Student in an Organized Health Care Education/Training Program; PCP Family Medicine; Visit Provider Internal Medicine
DX: C18.0 Malignant neoplasm of cecum (principal); L89.154 Pressure ulcer of sacral region, stage 4; M86.8X8 Other osteomyelitis, other site; I42.9 Cardiomyopathy, unspecified; E46 Unspecified protein-calorie malnutrition; Z68.1 Body mass index [BMI] 19.9 or less, adult; Z51.5 Encounter for palliative care; G70.00 Myasthenia gravis without (acute) exacerbation; R26.2 Difficulty in walking, not elsewhere classified; I71.4 Abdominal aortic aneurysm, without rupture; J44.9 Chronic obstructive pulmonary disease, unspecified; I48.91 Unspecified atrial fibrillation; E53.8 Deficiency of other specified B group vitamins; K59.09 Other constipation; G89.29 Other chronic pain; R09.02 Hypoxemia
CPT/HCPCS: 36415; 71275; 74177; 80048; 80053; 84145; 87081; 87637; 93005; 94640; 96365; 96366; 96368; 97162; 99221; 99232; 99285; 81003; 83735; 84484; 85025; 86140; 87070; 87205; 93010; 99223; J1170; J2060; J2543; J3490; J7512